=== PATIENT | female | born 1945 | race Caucasian/White ===

== ENCOUNTER 2019-06-17 18:28 | Emergency (ER) | payer MEDICARE, SELFPAY ==
[2019-06-17] VITALS (33 sets, daily range): BP systolic 99–140; BP diastolic 68–100; PULSE 54–118; RESP 17–18; TEMP 36.4; O2SAT 94–100; BMI 23.9
--- NOTE | 2019-06-17 18:36 | XRR_ITS ---
PROCEDURE INFORMATION: Exam: XR Chest, 1 View Exam date and time: 06/17/2019 6:37 PM Age: 74 years old Clinical indication: Shortness of breath; Chest pain; Additional info: Cp TECHNIQUE: Imaging protocol: XR of the chest Views: 1 view. COMPARISON: CR Chest 1 [place] [id number] 12/25/2018 1:14 AM FINDINGS: Lungs: There is unchanged interstitial prominence compatible with fibrosis, bronchitis, viral pneumonitis or mild interstitial edema. No lobar consolidation. Punctate calcified granulomas are noted. Pleural space: Unremarkable. No pleural effusion. No pneumothorax. Heart/Mediastinum: The heart is enlarged. Bones/joints: No acute abnormality. XR/XR chest 1V portable [id number] IMPRESSION: There is unchanged interstitial prominence compatible with fibrosis, bronchitis, viral pneumonitis or mild interstitial edema.
--- NOTE | 2019-06-17 18:36 | ECG_ITS ---
Measurements Intervals [place] Rate: 125 P: NM: 0 QRS: -24 QRSD: 86 T: 54 QT: 315 QTc: 455 ATRIAL FIBRILLATION WITH RAPID VENTRICULAR RESPONSE LOW QRS VOLTAGE IN PRECORDIAL LEADS [QRS DEFLECTION < 1.0 mV IN CHEST LEADS] INFERIOR MYOCARDIAL INFARCTION , PROBABLY OLD [40+ ms Q WAVE AND/OR ST/T AB ABNORMALITY IN II/aVF] Compared to ECG 12/25/2018 01:42:19 Myocardial infarct finding now present Sinus bradycardia no longer present Left anterior fascicular block no longer present Electronically Signed On 06-18-2019 7:48:54 AEROGRAPHER by Sonam Williamson M.D. [id number]
--- NOTE | 2019-06-17 18:46 | ED_ITS ---
Entered by Yancy Peter, acting as scribe for Kavon Lucas MD HPI - Chest Pain General: Chief Complaint: Chest Pain Stated Complaint: tightness in chest Time Seen by Provider: 06/17/19 18:44 History of Present Illness: HPI narrative: 74 yo female presents to ED with complaints of chest pain, palpitations and shortness of breath. She said this began about 1 1/2 hours ago (1714). She said she travelled to [place] over this last weekend. She said she has no history of this. She is currently on antibiotics for a bladder infection. MD complaint: chest pain Pertinent past history: other (none) Onset (ago): hour(s) (04/21 (1714)) Timing of current episode: constant Prior episodes: No Onset: during rest Pain location: substernal Pain radiation: none Severity: moderate Quality: aching Relieving factors: nothing Exacerbating factors: nothing Context: recent travel Associated symptoms: Reports dyspnea and palpitations; Deny abdominal pain, fever(s), nausea or vomiting Risk Factors: Coronary artery disease risk factors: none Thoracic aortic dissection risk factors: none Review of Systems Const: Denies: fever, chills, body aches or change in appetite Eyes: Denies: blurry vision or eye discomfort ENMT: Denies: throat pain or dental pain Card: Reports: palpitations and irregular heart rhythm Resp: Reports: shortness of breath GI: Denies: abdominal pain, nausea, vomiting or diarrhea : Denies: painful urination Musc: Denies: neck pain or back pain Skin/Breast: Denies: rash Neuro: Denies: headache Psych: Denies: depression Dwight/Lymph: Denies: easy bruising All/Imm: Denies: hives PFS ED PFSH: Social History Smoking and tobacco status: current every day smoker Physical Exam Const: COMMON NORMALS: no apparent distress, oriented x3 and healthy appearing HENMT: COMMON NORMALS: normocephalic and head/scalp atraumatic HEAD & SCALP: normocephalic and atraumatic Eye: COMMON NORMALS: PERRL and EOMs intact bilaterally PUPIL: Yes PERRL Neck/C-Spine: COMMON NORMALS: full ROM and supple Chest: COMMONS NORMALS: inspection of chest normal and palpation of chest normal Resp: COMMON NORMALS: normal respiratory effort, no retractions, no use of accessory muscles and clear to auscultation bilaterally AUSCULTATION: clear to auscultation bilaterally Cardio: COMMON NORMALS: no murmurs RATE: tachycardic RHYTHM: abnormal rhythm irregularly irregular GI: COMMON NORMALS: normal to inspection, nondistended, normoactive bowel sounds, soft to palpation, non-tender and no masses PALPATION: Yes soft Extremity: COMMON NORMALS: normal to inspection and full ROM Neuro: COMMON NORMALS: oriented x3, moves all extremities and no focal motor deficits Psych: COMMON NORMALS: mental status grossly normal, thought process normal and cooperative THOUGHT PROCESS: normal thought process Skin: COMMON NORMALS: no rashes or lesions noted and no wounds GENERAL SKIN EXAM: no rashes or lesions noted Course Vital Signs: Vital signs: Vital Signs Temperature 97.5 F L 06/17/19 18:37 Pulse Rate 69 06/17/19 18:53 Respiratory Rate 17 06/17/19 18:53 Blood Pressure 118/86 06/17/19 18:53 Pulse Oximetry 96 06/17/19 18:53 MDM - Chest Pain MDM Narrative: Medical decision making narrative: Patient presents here with chest pain that is atypical in nature. Her initial and repeat troponin are negative. Patient's CT scan here shows no PE. Patient does have proximal A. fib and is converted to normal sinus rhythm here without any medication. Suddenly patient has had this in the past. Patient has been in normal sinus rhythm over the last 3 hours. Patient is stable for discharge and is to follow- up with primary care doctor in 3 to 5 days and return if worsening. Lab Data: Labs: Lab Results 06/17/19 06/17/19 06/17/19 Range/Units 18:38 18:38 18:38 WBC 4.9 (4.0-10.0) 10^3/ uL RBC 4.14 (4.1-5.3) 10^6/u L Hgb 12.6 (11.5-15.3) g/dL Hct 39.5 (37.0-47.0) % MCV 95.4 (81-99) fL MCH 30.4 (28.0-34.0) pg MCHC 31.9 (30.0-36.0) g/dL RDW 14.3 (12.1-15.1) % Plt Count 176 (130-400) 10^3/c mm MPV 12.7 H (7.4-10.4) fL Neut % (Auto) 62.5 % Lymph % (Auto) 23.7 % Corson % (Auto) 8.1 % Eos % (Auto) 4.7 % Baso % (Auto) 0.8 % Neut # (Auto) 3.1 (1.8-7.7) 10^3/u L Lymph # (Auto) 1.2 (0.8-4.8) 10^3/u L Corson # (Auto) 0.4 (0.2-0.9) 10^3/u L Eos # (Auto) 0.2 (0.0-0.8) 10^3/u L Baso # (Auto) 0.0 (0.0-0.1) 10^3/u L Nucleated RBC % (a uto) 0 % Nucleated RBCs # 0.0 /100WBC D-Dimer (0-0.59) ug/mIFE U Sodium 138 (136-145) mmol/L Potassium 3.4 L (3.5-5.1) mmol/L Chloride 100 (98-107) mmol/L Carbon Dioxide 26 (22-29) mmol/L Anion Gap 15.4 (5-19) BUN 16 (8-23) mg/dL Creatinine 0.9 (0.5-0.9) mg/dL Glucose 167 H (65-115) mg/dL Calcium 9.8 (8.5-10.5) mg/dL Total Bilirubin 0.2 (0.15-1.2) mg/dL AST 19 (0-32) U/L ALT 14 (0-33) U/L Alkaline Phosphata se 96 (35-105) IU/L Troponin T Baselin e 7 (0-10) ng/mL Troponin T 120 Min alejandra (0-10) ng/mL Delta Troponin T (0-10) ABS# Total Protein 6.7 (6.6-8.7) g/dL Albumin 4.0 (3.5-5.2) g/dL Globulin 2.7 (1.3-4.6) g/dL 06/17/19 06/17/19 Range/Units 18:38 20:27 WBC (4.0-10.0) 10^3/ uL RBC (4.1-5.3) 10^6/u L Hgb (11.5-15.3) g/dL Hct (37.0-47.0) % MCV (81-99) fL MCH (28.0-34.0) pg MCHC (30.0-36.0) g/dL RDW (12.1-15.1) % Plt Count (130-400) 10^3/c mm MPV (7.4-10.4) fL Neut % (Auto) % Lymph % (Auto) % Cors[place] % (Auto) % Eos % (Auto) % Baso % (Auto) % Neut # (Auto) (1.8-7.7) 10^3/u L Lymph # (Auto) (0.8-4.8) 10^3/u L Corson # (Auto) (0.2-0.9) 10^3/u L Eos # (Auto) (0.0-0.8) 10^3/u L Baso # (Auto) (0.0-0.1) 10^3/u L Nucleated RBC % (a uto) % Nucleated RBCs # /100WBC D-Dimer 2.16 H (0-0.59) ug/mIFE U Sodium (136-145) mmol/L Potassium (3.5-5.1) mmol/L Chloride (98-107) mmol/L Carbon Dioxide (22-29) mmol/L Anion Gap (5-19) BUN (8-23) mg/dL Creatinine (0.5-0.9) mg/dL Glucose (65-115) mg/dL Calcium (8.5-10.5) mg/dL Total Bilirubin (0.15-1.2) mg/dL AST (0-32) U/L ALT (0-33) U/L Alkaline Phosphata se (35-105) IU/L Troponin T Baselin e (0-10) ng/mL Troponin T 120 Min alejandra 9.74 (0-10) ng/mL Delta Troponin T 2.74 (0-10) ABS# Total Protein (6.6-8.7) g/dL Albumin (3.5-5.2) g/dL Globulin (1.3-4.6) g/dL Imaging Data^: CXR: Radiologist's impression: Ordering Provider/Ordering MD: Kavon Lucas MD Date of Service: 06/17/19 Procedure(s): XR chest 1V portable [id number] Accession Number(s): [id number] Report Number: [id number] PROCEDURE INFORMATION: Exam: XR Chest, 1 View Exam date and time: 06/17/2019 6:37 PM Age: 74 years old Clinical indication: Shortness of breath; Chest pain; Additional info: Cp TECHNIQUE: Imaging protocol: XR of the chest Views: 1 view. COMPARISON: CR Chest 1 [place] [id number] 12/25/2018 1:14 AM FINDINGS: Lungs: There is unchanged interstitial prominence compatible with fibrosis, bronchitis, viral pneumonitis or mild interstitial edema. No lobar consolidation. Punctate calcified granulomas are noted. Pleural space: Unremarkable. No pleural effusion. No pneumothorax. Heart/Mediastinum: The heart is enlarged. Bones/joints: No acute abnormality. XR/XR chest 1V portable [id number] IMPRESSION: There is unchanged interstitial prominence compatible with fibrosis, bronchitis, viral pneumonitis or mild interstitial edema. CTA Chest: Radiologist's impression: [place] [address] CT Scan Report Signed Patient: Destiny Quintana #: [id number] : 7Acct#:[id number] Age/Sex: 74 / FADM Date: 06/17/19 [facility] Attending Dr: Ordering Provider/Ordering MD: Kavon Lucas MD Date of Service: 06/17/19 Procedure(s): CT angio chest PE protcl [id number] Accession Number(s): [id number] Report Number: [id number] PROCEDURE INFORMATION: Exam: CT Angiography Chest With Contrast Exam date and time: 06/17/2019 8:54 PM Age: 74 years old Clinical indication: Chest pain and chest pressure; Type not specified; Additional info: Pe TECHNIQUE: Imaging protocol: Computed tomographic angiography of the chest with intravenous contrast. 3D rendering: MIP and/or 3D reconstructed images were created by the technologist. Total DLP: 537.61 mGy-cm Radiation optimization: All CT scans at this facility use at least one of these dose optimization techniques: automated exposure control; mA and/or kV adjustment per patient size (includes targeted exams where dose is matched to clinical indication); or iterative reconstruction. Contrast material: OMNI 350; Contrast volume: 95 ml; Contrast route: 20G; COMPARISON: CR (CHEST, ) 06/17/2019 6:41 PM FINDINGS: Pulmonary arteries: There is no pulmonary embolus. Aorta: There is 4.1 cm ascending thoracic aorta. Mid descending thoracic aorta measures 2.7 cm and the transverse aortic arch measures 2.6 cm. There is no dissection. Lungs: Bilateral apical fibrosis versus pneumonitis is noted. There is a 8 x 9 mm nodule right upper lobe image 92. Additional pneumonitis in the right upper lobe and smaller subpleural nodules are noted. In the left upper lobe, there is a 6 mm subpleural nodule with central lucency may reflect some pneumonitis surrounding a dilated bronchus or early cavitated nodule image 12. There are moderate to severe emphysematous changes. Nonspecific bibasilar consolidation is present, consistent with atelectasis, edema, or pneumonia. There is moderate bronchiectasis especially in the lower lobes. There is some mild distal mucus plugging. Pleural space: Unremarkable. No pneumothorax. No pleural effusion. Heart: There is a small pericardial effusion. The heart is enlarged. Mediastinum: A small hiatal hernia is present. Kidneys and ureters: There is no evidence of hydronephrosis. There is no evidence of renal calcifications. Lymph nodes: Unremarkable. No enlarged lymph nodes. Bones/joints: Chronic appearing compression fracture deformity of T12 is noted. Soft tissues: Unremarkable. CT/CT angio chest PE protcl [id number] IMPRESSION: 1. There is no pulmonary embolus. 2. 4.1 cm aneurysm of the ascending thoracic aorta. No dissection. 3. 9 mm nodule right upper lobe. Additional upper lobe pneumonitis in apical fibrosis is noted. The 6 mm nodule left upper lobe may reflect pneumonitis or additional small nodule with central cavitation.For patients at low risk (minimal or absent history of smoking and of other known risk factors), recommend CT at 3-6 months, then consider CT at 18-24 months. For patients at high risk (history of smoking or of other known risk factors), recommend CT at 3-6 months, then CT at 18-24 months. (zbigniew Hodges al., Fleischner Society, 2017) 4. Nonspecific bibasilar consolidation is present, consistent with atelectasis, edema, or pneumonia. Radiation Dose CTDIVOL = (mGy): DLP = 537.61 (mGy-cm) Dictated By:Uzma Godoy Signed By:Isaac Godoyigned Date/Time:06/17/192151 DD/ EKG Data^: EKG 1: Attestation: I personally reviewed and interpreted this EKG as follows: EKG interpretation date: 06/17/19 EKG interpretation time: 18:43 Interpretation: afib hr [address] or t wave abnormalities qrs 86 qtc 389 EKG 2: Attestation: I personally reviewed and interpreted this EKG as follows: EKG interpretation date: 06/17/19 EKG interpretation time: 20:22 Interpretation: nsr hr 63 with no dt or twave abnormalities qrs 94 qtc 408 Discharge Plan Discharge Patient Disposition: Home, Self-Care Clinical Impression: Atypical chest pain, Paroxysmal A-fib Condition: Stable Prescriptions: No Action amoxicillin 500 mg capsule 500 mg PO BID RF: 0 Aleve 220 mg Tablet 220 mg PO BID PRN (Reason: Pain) RF: 0 magnesium 200 mg Tablet 200 mg PO DAILY RF: 0 Vitamin D3 400 unit Capsule 400 unit PO DAILY RF: 0 Discharge Orders: Discharge Order (Routine); Ordered 06/17/19 Ordered By: Kavon Lucas Referrals: Maribel Mendes MD [Primary Care Provider] - Rahat Overton MD [Physician] - 4-7 days Discharge Diet: Advance as tolerated Discharge Activity: Resume usual activity Patient Instructions: Atrial Fibrillation (ED), Chest Pain (ED) Coding Level of Care Code ED Global Mobility Specialist for Chg Fwd Exam Comprehensive The documentation recorded by the [place] josé Valerie R, accurately reflects the service I personally performed and the decisions made by Lance baca Korby, MD Jun 17, 2019 18:28
[2019-06-17 19:00] LABS: Basophils % 0.8 %; Eosinophils # 0.2 10^3/uL (0.0-0.8); Eosinophils % 4.7 %; Hematocrit 39.5 % (37.0-47.0); Hemoglobin 12.6 g/dL (11.5-15.3); Lymphocytes # 1.2 10^3/uL (0.8-4.8); Lymphocytes % 23.7 %; Mean Corpuscular HGB Conc 31.9 g/dL (30.0-36.0); Mean Corpuscular Hemoglobin 30.4 pg (28.0-34.0); Mean Corpuscular Volume 95.4 fL (81-99); Mean Platelet Volume 12.7 fL (7.4-10.4); Monocytes # 0.4 10^3/uL (0.2-0.9); Monocytes % 8.1 %; Neutrophils # 3.1 10^3/uL (1.8-7.7); Neutrophils % 62.5 %; Nucleated Red Blood Cells % 0 %; Platelet Count 176 10^3/cmm (130-400); Red Blood Count 4.14 10^6/uL (4.1-5.3); Red Cell Distribution Width 14.3 % (12.1-15.1); White Blood Count 4.9 10^3/uL (4.0-10.0)
--- NOTE | 2019-06-17 19:45 | PC.NURSE ---
Introduced self to patient and initiated vital signs. Patient presents A&O x 4. NAD, ABCs intact, MAEW and agreeable to treatment. Respirations are even and unlabored. Pt states medications taken before coming to ER are n/a. Pt states that the chief complaint for the ER visit today is due to chest pain which presented as tightness in the center of the chest around 1700 today. Pt denies any vision disturbances or lightheadedness. Bed left in lowest position in semi-fowlers with side rails up.Reassured patient of needs and will continue to monitor.
[2019-06-17 19:47] LABS: Alanine Aminotransferase 14 U/L (0-33); Alkaline Phosphatase 96 IU/L (35-105); Anion Gap 15.4 (5-19); Aspartate Amino Transferase 19 U/L (0-32); Blood Urea Nitrogen 16 mg/dL (8-23); Calcium 9.8 mg/dL (8.5-10.5); Carbon Dioxide 26 mmol/L (22-29); Chloride 100 mmol/L (98-107); Globulin 2.7 g/dL (1.3-4.6); Glucose 167 mg/dL (65-115); Potassium 3.4 mmol/L (3.5-5.1); Sodium 138 mmol/L (136-145); Total Bilirubin 0.2 mg/dL (0.15-1.2); Total Protein 6.7 g/dL (6.6-8.7)
[2019-06-17 19:49] LABS: D Dimer 2.16 ug/mIFEU (0-0.59)
[2019-06-17 19:50] LABS: Troponin(5th) Baseline 7 ng/mL (0-10)
--- NOTE | 2019-06-17 19:53 | PC.PHAR ---
PT STATES THAT SHE USED CBD OIL FOR PAIN PRN.
--- NOTE | 2019-06-17 20:19 | CTR_ITS ---
PROCEDURE INFORMATION: Exam: CT Angiography Chest With Contrast Exam date and time: 06/17/2019 8:54 PM Age: 74 years old Clinical indication: Chest pain and chest pressure; Type not specified; Additional info: Pe TECHNIQUE: Imaging protocol: Computed tomographic angiography of the chest with intravenous contrast. 3D rendering: MIP and/or 3D reconstructed images were created by the technologist. Total DLP: 537.61 mGy-cm Radiation optimization: All CT scans at this facility use at least one of these dose optimization techniques: automated exposure control; mA and/or kV adjustment per patient size (includes targeted exams where dose is matched to clinical indication); or iterative reconstruction. Contrast material: OMNI 350; Contrast volume: 95 ml; Contrast route: 20G; COMPARISON: CR (CHEST, ) 06/17/2019 6:41 PM FINDINGS: Pulmonary arteries: There is no pulmonary embolus. Aorta: There is 4.1 cm ascending thoracic aorta. Mid descending thoracic aorta measures 2.7 cm and the transverse aortic arch measures 2.6 cm. There is no dissection. Lungs: Bilateral apical fibrosis versus pneumonitis is noted. There is a 8 x 9 mm nodule right upper lobe image 92. Additional pneumonitis in the right upper lobe and smaller subpleural nodules are noted. In the left upper lobe, there is a 6 mm subpleural nodule with central lucency may reflect some pneumonitis surrounding a dilated bronchus or early cavitated nodule image 12. There are moderate to severe emphysematous changes. Nonspecific bibasilar consolidation is present, consistent with atelectasis, edema, or pneumonia. There is moderate bronchiectasis especially in the lower lobes. There is some mild distal mucus plugging. Pleural space: Unremarkable. No pneumothorax. No pleural effusion. Heart: There is a small pericardial effusion. The heart is enlarged. Mediastinum: A small hiatal hernia is present. Kidneys and ureters: There is no evidence of hydronephrosis. There is no evidence of renal calcifications. Lymph nodes: Unremarkable. No enlarged lymph nodes. Bones/joints: Chronic appearing compression fracture deformity of T12 is noted. Soft tissues: Unremarkable. CT/CT angio chest PE protcl [id number] IMPRESSION: 1. There is no pulmonary embolus. 2. 4.1 cm aneurysm of the ascending thoracic aorta. No dissection. 3. 9 mm nodule right upper lobe. Additional upper lobe pneumonitis in apical fibrosis is noted. The 6 mm nodule left upper lobe may reflect pneumonitis or additional small nodule with central cavitation.For patients at low risk (minimal or absent history of smoking and of other known risk factors), recommend CT at 3-6 months, then consider CT at 18-24 months. For patients at high risk (history of smoking or of other known risk factors), recommend CT at 3-6 months, then CT at 18-24 months. (Carroll et al., Fleischner Society, 2017) 4. Nonspecific bibasilar consolidation is present, consistent with atelectasis, edema, or pneumonia. Radiation Dose CTDIVOL = (mGy): DLP = 537.61 (mGy-cm)
--- NOTE | 2019-06-17 20:23 | PC.NURSE ---
EKG done at 2019 and shown to ER doctor. Patient also stated that her pain is more like a pressure than pain and in the left side of her chest.
[2019-06-17] MEDS: aspirin 81 mg Chew Tablet 324 MG PO (20:35)
--- NOTE | 2019-06-17 20:36 | ECG_ITS ---
Measurements Intervals [place] Rate: 63 P: 80 VT: 164 QRS: -28 QRSD: 94 T: 36 QT: 401 QTc: 411 SINUS RHYTHM WITH OCCASIONAL SUPRAVENTRICULAR PREMATURE COMPLEXES BORDERLINE LEFT AXIS DEVIATION [QRS AXIS < -20] LOW QRS VOLTAGE IN PRECORDIAL LEADS [QRS DEFLECTION < 1.0 mV IN CHEST LEADS] Compared to ECG 12/25/2018 01:42:19 Sinus bradycardia no longer present Left anterior fascicular block no longer present Electronically Signed On 06-18-2019 20:30:58 SUBSTATION TECHNICIAN by Eulalia Turner M.D. [id number]
[2019-06-17 21:01] LABS: Troponin 5 2HR 9.74 ng/mL (0-10); Troponin 5 2HR Delta 2.74 ABS# (0-10)
[2019-06-17] MEDS: morphine 4 mg/mL SDV 1 mL IVP (21:05)
[2019-06-17] MEDS: iohexol 350 mg/mL 100 mL Btl IV (21:31)
--- NOTE | 2019-06-20 12:01 | DCPLANNER ---
squash centre manager had message to schedule a follow up appointment for patient with [facility]. squash centre manager called [facility], spoke with Deanna, patient has a follow up appointment scheduled for Friday, August 02, 2019 at 1:[address] Overton. Clinic will call patient with appointment information.
--- NOTE | 2019-09-06 15:50 | DCPLANNER ---
Patient did attend appointment scheduled for 08.02.19 with [facility].
== END 2019-06-17 22:32 | disposition home or self-care (01) ==
PROVIDERS: Emergency Provider Emergency Medicine; Family Provider Family Medicine; PCP Family Medicine
DX: R07.89 Other chest pain (principal); I48.0 Paroxysmal atrial fibrillation; F17.200 Nicotine dependence, unspecified, uncomplicated
CPT/HCPCS: 36415; 71045; 71275; 80053; 84484; 85025; 85378; 93005; 96374; 96375; 99283; 99284; J2270; Q9967

== ENCOUNTER → 2019-06-29 10:30 | Outpatient (BNVA) | payer MEDICARE, SELFPAY | PROVIDERS: Family Provider Family Medicine; PCP Family Medicine; Visit Provider Nurse Practitioner Family | DX: N30.20 Other chronic cystitis without hematuria (principal) | CPT/HCPCS: 81001 ==

== ENCOUNTER 2019-09-23 00:43 | Emergency (ER) | payer MEDICARE, SELFPAY ==
[2019-09-23] VITALS (18 sets, daily range): BP systolic 144–159; BP diastolic 78–123; PULSE 56–72; RESP 15–23; TEMP 35.6; O2SAT 95–99; BMI 25.7
--- NOTE | 2019-09-23 00:49 | ECG_ITS ---
Measurements Intervals [place] Rate: 61 P: 32 SD: 152 QRS: -33 QRSD: 80 T: 29 QT: 378 QTc: 381 SINUS RHYTHM LEFT AXIS DEVIATION [QRS AXIS < -30] LOW QRS VOLTAGE IN PRECORDIAL LEADS [QRS DEFLECTION < 1.0 mV IN CHEST LEADS] Compared to ECG 06/17/2019 20:22:33 No significant changes Electronically Signed On 09-23-2019 18:01:08 CDT by Sonam Williamson M.D. [id number]
--- NOTE | 2019-09-23 00:49 | XR_ITS ---
WS: [id number] XR chest 1V portable [id number] REASON FOR EXAM: cp FINDINGS: Mild thickening of the pleura in the right upper lung. Comparisons were made to previous exam of June 17, 2019. The heart is not enlarged. The lung hess are mildly hyper aerated suggesting low-grade emphysema. There is no pneumonia, pleur al effusion, pulmonary edema, are pneumothorax. The hilum and apices normal. XR/XR chest 1V portable [id number] IMPRESSION: Mild emphysema this changes Thickening of the pleura in the right apex but no definite masses seen.
--- NOTE | 2019-09-23 01:16 | ED_ITS ---
HPI - Chest Pain General: Chief Complaint: Chest Pain Stated Complaint: chest pressure Time Seen by Provider: 09/23/19 01:05 Source: patient Mode of arrival: ambulatory Limitations: no limitations History of Present Illness: HPI narrative: Destiny is a 74-year-old female with a history of A. fib states that 9:00 she turned over in bed and started having palpitations along with chest pain. States the pain was a pressure type pain in the center of her chest. She denies any numbing or shortness of breath. She states that she checked her heart rate with a pulse ox and it was in the 140s and very irregular. States that her symptoms have since resolved and now has very minimal pain. She denies any worsening or improving factors. complaint: chest pain Onset (ago): hour(s) Onset: during rest Pain location: substernal Pain radiation: none Severity: mild Quality: tightness Relieving factors: nothing Exacerbating factors: nothing Associated symptoms: Deny abdominal pain, dyspnea, fever(s), nausea or vomiting Review of Systems Const: Denies: fever(s), chills, body aches or change in appetite Eyes: Denies: blurry vision or eye discomfort ENMT: Denies: throat pain or dental pain Card: Reports: chest pain Resp: Denies: dyspnea GI: Denies: abdominal pain, nausea, vomiting or diarrhea : Denies: dysuria Musc: Denies: neck pain or back pain Skin/Breast: Denies: rash Neuro: Denies: headache(s) Psych: Denies: depression Dwight/Lymph: Denies: easy bruising All/Imm: Denies: urticaria PFSH ED PFSH: Medical History Chronic cystitis History of bladder cancer History of hematuria Family History Mother , in her 70's Cancer Father , at age 79 CAD (coronary artery disease) Social History Smoking and tobacco status: former smoker Alcohol intake: unknown Adopted: No Caregiver/support person: No Lives independently: Yes Marital status: Single History of recent travel: No Current gender identity: Female Physical Exam Const: COMMON NORMALS: no acute distress, patient oriented x3 and healthy appearing HENMT: COMMON NORMALS: normocephalic and atraumatic HEAD & SCALP: normocephalic and atraumatic Eye: COMMON NORMALS: Equal, round and reactive pupils present and EOMs intact bilaterally PUPIL: Yes Equal, round and reactive pupils present Neck/C-Spine: COMMON NORMALS: full ROM and supple Chest: COMMONS NORMALS: normal inspection of the chest and normal palpation of entire chest wall Resp: COMMON NORMALS: normal respiratory effort, No retractions, No use of accessory muscles and clear to auscultation bilaterally AUSCULTATION: clear to auscultation bilaterally Cardio: COMMON NORMALS: regular rate, regular rhythm and No murmurs present (Cardio) RATE: regular rate RHYTHM: regular rhythm GI: COMMON NORMALS: Normal to inspection, nondistended, normoactive bowel sounds present, Soft to palpation, non-tender and no masses PALPATION: Yes Soft to palpation Extremity: COMMON NORMALS: normal to inspection and full ROM Neuro: COMMON NORMALS: patient oriented x3, moves all extremities and no focal motor deficits Psych: COMMON NORMALS: mental status grossly normal, Normal thought process present and cooperative THOUGHT PROCESS: Normal thought process present Skin: COMMON NORMALS: no rashes or lesions noted and no wounds GENERAL SKIN EXAM: no rashes or lesions noted Course Vital Signs: Vital signs: Vital Signs Temperature 96.0 F L 09/23/19 01:13 Pulse Rate 72 09/23/19 01:13 Respiratory Rate 18 09/23/19 01:13 Blood Pressure 144/94 09/23/19 01:13 Pulse Oximetry 98 09/23/19 01:13 MDM - Chest Pain MDM Narrative: Medical decision making narrative: Patient presents here with chest pain is likely due to A. fib. Patient has since converted by the time she was here. Patient had no pain here and initial repeat troponins are normal. I did offer admission but she states she feels improved and would like to go home. I feel she is stable for discharge and informed her she is to follow-up with primary care doctor in 2 to 4 days return to ER if she has any pain. She understands and agrees this plan. Lab Data: Labs: Lab Results 09/23/19 09/23/19 09/23/19 Range/Units 01:11 01:11 01:11 WBC 5.5 (4.0-10.0) 10^3/ uL RBC 4.09 L (4.1-5.3) 10^6/u L Hgb 12.1 (11.5-15.3) g/dL Hct 38.5 (37.0-47.0) % MCV 94.1 (81-99) fL MCH 29.6 (28.0-34.0) pg MCHC 31.4 (30.0-36.0) g/dL RDW 14.2 (12.1-15.1) % Plt Count 170 (130-400) 10^3/c mm MPV 12.8 H (7.4-10.4) fL Neut % (Auto) 67.8 % Lymph % (Auto) 18.2 % [place] % (Auto) 8.3 % Eos % (Auto) 5.1 % Baso % (Auto) 0.4 % Neut # (Auto) 3.8 (1.8-7.7) 10^3/u L Lymph # (Auto) 1.0 (0.8-4.8) 10^3/u L [place] # (Auto) 0.5 (0.2-0.9) 10^3/u L Eos # (Auto) 0.3 (0.0-0.8) 10^3/u L Baso # (Auto) 0.0 (0.0-0.1) 10^3/u L Nucleated RBC % (a uto) 0 % Nucleated RBCs # 0.0 /100WBC Sodium 143 (136-145) mmol/L Potassium 4.1 (3.5-5.1) mmol/L Chloride 106 (98-107) mmol/L Carbon Dioxide 26 (22-29) mmol/L Anion Gap 15.1 (5-19) BUN 15 (8-23) mg/dL Creatinine 0.8 (0.5-0.9) mg/dL Glucose 109 (65-115) mg/dL Calculated Osmolal ity 293 (285-295) mOsm/k g Calcium 9.7 (8.5-10.5) mg/dL Total Bilirubin 0.3 (0.15-1.2) mg/dL AST 28 (0-32) U/L ALT 27 (0-33) U/L Alkaline Phosphata se 81 (35-105) IU/L Troponin T Baselin e 8 (0-10) ng/mL Troponin T 120 [address] [place] (0-10) ng/mL Delta Troponin T (0-10) ABS# Total Protein 6.5 L (6.6-8.7) g/dL Albumin 4.3 (3.5-5.2) g/dL Globulin 2.2 (1.3-4.6) g/dL 09/23/19 Range/Units 02:37 WBC (4.0-10.0) 10^3/ uL RBC (4.1-5.3) 10^6/u L Hgb (11.5-15.3) g/dL Hct (37.0-47.0) % MCV (81-99) fL MCH (28.0-34.0) pg MCHC (30.0-36.0) g/dL RDW (12.1-15.1) % Plt Count (130-400) 10^3/c mm MPV (7.4-10.4) fL Neut % (Auto) % Lymph % (Auto) % [place] % (Auto) % Eos % (Auto) % Baso % (Auto) % Neut # (Auto) (1.8-7.7) 10^3/u L Lymph # (Auto) (0.8-4.8) 10^3/u L [place] # (Auto) (0.2-0.9) 10^3/u L Eos # (Auto) (0.0-0.8) 10^3/u L Baso # (Auto) (0.0-0.1) 10^3/u L Nucleated RBC % (a uto) % Nucleated RBCs # /100WBC Sodium (136-145) mmol/L Potassium (3.5-5.1) mmol/L Chloride (98-107) mmol/L Carbon Dioxide (22-29) mmol/L Anion Gap (5-19) BUN (8-23) mg/dL Creatinine (0.5-0.9) mg/dL Glucose (65-115) mg/dL Calculated Osmolal ity (285-295) mOsm/k g Calcium (8.5-10.5) mg/dL Total Bilirubin (0.15-1.2) mg/dL AST (0-32) U/L ALT (0-33) U/L Alkaline Phosphata se (35-105) IU/L Troponin T Baselin e (0-10) ng/mL Troponin T 120 [address] [place] 13.05 H (0-10) ng/mL Delta Troponin T 5.05 (0-10) ABS# Total Protein (6.6-8.7) g/dL Albumin (3.5-5.2) g/dL Globulin (1.3-4.6) g/dL Imaging Data^: CXR: Attestation: I personally reviewed and interpreted this imaging study as follows: My impression: No acute abnormality EKG Data^: EKG 1: Attestation: I personally reviewed and interpreted this EKG as follows: EKG interpretation date: 09/23/19 EKG interpretation time: 02:18 Interpretation: nsr hr [address] or t wave abnormalities qrs 80 qtc 380 Discharge Plan Discharge Patient Disposition: Home, Self-Care Clinical Impression: Chest pain Qualifiers: Chest pain type: unspecified Qualified Code(s): R07.9 - Chest pain, unspecified Condition: Stable Prescriptions: No Action neuriva PO DAILY RF: 0 cnqflflt-duectqk-nnre-lutein Tablet PO DAILY RF: 0 nicotine [Nicoderm CQ] 7 mg/24 hr patch 24 hour 1 patch TRANSDERMA Q24H RF: 0 aspirin 325 mg tablet 325 mg PO DAILY 90 Days Qty: 90 RF: 3 metoprolol tartrate 25 mg tablet 12.5 mg PO BID PRN (Reason: tachycardia) 90 Days Qty: 180 RF: 3 amoxicillin 500 mg capsule 500 mg PO BID Qty: 60 RF: 3 Aleve 220 mg Tablet 220 mg PO BID PRN (Reason: Pain) RF: 0 Vitamin D3 400 unit Capsule 400 unit PO DAILY RF: 0 magnesium 200 mg tablet 400 mg PO DAILY RF: 0 Discharge Orders: Discharge Order (Routine); Ordered 09/23/19 Ordered By: Kavon Lucas Referrals: Maribel Mendes MD [Primary Care Provider] - 1-3 days Discharge Diet: Advance as tolerated Discharge Activity: Resume usual activity Patient Instructions: Chest Pain (ED) Coding Level of Care Code ED Dredge Hand for Chg Fwd Exam Comprehensive
[2019-09-23 01:40] LABS: Basophils % 0.4 %; Eosinophils # 0.3 10^3/uL (0.0-0.8); Eosinophils % 5.1 %; Hematocrit 38.5 % (37.0-47.0); Hemoglobin 12.1 g/dL (11.5-15.3); Lymphocytes % 18.2 %; Mean Corpuscular HGB Conc 31.4 g/dL (30.0-36.0); Mean Corpuscular Hemoglobin 29.6 pg (28.0-34.0); Mean Corpuscular Volume 94.1 fL (81-99); Mean Platelet Volume 12.8 fL (7.4-10.4); Monocytes # 0.5 10^3/uL (0.2-0.9); Monocytes % 8.3 %; Neutrophils # 3.8 10^3/uL (1.8-7.7); Neutrophils % 67.8 %; Nucleated Red Blood Cells % 0 %; Platelet Count 170 10^3/cmm (130-400); Red Blood Count 4.09 10^6/uL (4.1-5.3); Red Cell Distribution Width 14.2 % (12.1-15.1); White Blood Count 5.5 10^3/uL (4.0-10.0)
[2019-09-23 01:41] LABS: Troponin(5th) Baseline 8 ng/mL (0-10)
[2019-09-23 01:53] LABS: Alanine Aminotransferase 27 U/L (0-33); Albumin Level 4.3 g/dL (3.5-5.2); Alkaline Phosphatase 81 IU/L (35-105); Anion Gap 15.1 (5-19); Aspartate Amino Transferase 28 U/L (0-32); Blood Urea Nitrogen 15 mg/dL (8-23); Calcium 9.7 mg/dL (8.5-10.5); Carbon Dioxide 26 mmol/L (22-29); Chloride 106 mmol/L (98-107); Creatinine Clr Calc Pharmacy 57.0967; Globulin 2.2 g/dL (1.3-4.6); Glucose 109 mg/dL (65-115); Osmolality Calculated 293 mOsm/kg (285-295); Potassium 4.1 mmol/L (3.5-5.1); Sodium 143 mmol/L (136-145); Total Bilirubin 0.3 mg/dL (0.15-1.2); Total Protein 6.5 g/dL (6.6-8.7)
[2019-09-23] MEDS: aspirin 81 mg Chew Tablet 324 MG PO (02:05)
[2019-09-23 03:05] LABS: Troponin 5 2HR 13.05 ng/mL (0-10); Troponin 5 2HR Delta 5.05 ABS# (0-10)
== END 2019-09-23 03:45 | disposition home or self-care (01) ==
PROVIDERS: Emergency Provider Emergency Medicine; Family Provider Family Medicine; PCP Family Medicine
DX: R07.9 Chest pain, unspecified (principal); Z79.82 Long term (current) use of aspirin; Z85.51 Personal history of malignant neoplasm of bladder; Z87.891 Personal history of nicotine dependence
CPT/HCPCS: 12345; 71045; 80053; 84484; 85025; 93005; 99283; 99284

== ENCOUNTER → 2020-01-11 15:23 | Outpatient (BNVA) | payer MEDICARE, SELFPAY | PROVIDERS: Family Provider Family Medicine; PCP Family Medicine; Visit Provider Urology | DX: N30.20 Other chronic cystitis without hematuria (principal) | CPT/HCPCS: 81001 ==

== ENCOUNTER → 2020-09-27 12:35 | Outpatient (BNVA) | payer MEDICARE, SELFPAY | PROVIDERS: PCP Family Medicine; Referring Provider Family Medicine; Visit Provider Anesthesiology Pain Medicine | DX: G89.29 Other chronic pain (principal); Z11.52 Encounter for screening for COVID-19; M47.816 Spondylosis without myelopathy or radiculopathy, lumbar region; Z20.822 Contact with and (suspected) exposure to COVID-19; M16.12 Unilateral primary osteoarthritis, left hip; Z01.812 Encounter for preprocedural laboratory examination; M79.605 Pain in left leg; Z79.891 Long term (current) use of opiate analgesic | CPT/HCPCS: 87635; 99204 ==

== ENCOUNTER 2020-09-28 08:38 | Outpatient (CLI) | payer MEDICARE, SELFPAY ==
--- NOTE | 2020-09-28 08:49 | XR_ITS ---
WS: [id number] Lumbar spine, 5 views including obliques, 09/28/2020 Clinical Data: M47.816 - Spondylosis without myelopathy or radiculopathy... Comparison: None. Findings: No subluxation is seen. There is slight loss of superior cortical height of the L1 vertebral body whi ch may represent a small compression. There is degenerative disc narrowing at L5-S1. There is an oste ophyte at the anterior superior aspect of L1. The transverse processes and SI joints are normal. The oblique films show no spondylolysis or spondylolisthesis. There is calcification along the abdomi nal aorta but no aneurysm. XR/XR lumbar spine min 4V [id number] Impression: 1. Slight loss of superior vertebral body height of L1 which may represent a mi nimal fracture. 2. Degenerative disc disease at L5-S1.
== END 2020-09-28 08:39 | disposition home or self-care (01) ==
LOC: RAD 08:47
PROVIDERS: PCP Family Medicine; Visit Provider Anesthesiology Pain Medicine
DX: M47.816 Spondylosis without myelopathy or radiculopathy, lumbar region (principal); M51.37 Other intervertebral disc degeneration, lumbosacral region
CPT/HCPCS: 72110

== ENCOUNTER 2020-10-03 08:21 | Outpatient (CLI) | payer MEDICARE, SELFPAY ==
--- NOTE | 2020-10-03 09:24 | PFTS_ITS ---
Date of Study:10/03/20 Date of Dictation: 10/09/20 MECHANICS: Pre bronchodilator Forced vital capacity (FVC) is normal. Pre bronchodilator Forced expiratory volume in one second (FEV1) is normal . FEV1/FVC is normal. There is no post bronchodialator study. FLOW VOLUME LOOP: normal. LUNG VOLUMES: Total lung capacity (TLC) is normal. Residual volume (RV) is normal. DIFFUSING CAPACITY FOR CARBON MONOXIDE: mildly reduced 74% . INTERPRETATION: The pulmonary function tests are normal with isolated mild reduction in gas transfer suggestive of pulmonary vascular disease. Clinical correlation recommended. MTDD
== END 2020-10-03 08:22 | disposition home or self-care (01) ==
LOC: RT 08:24
PROVIDERS: PCP Family Medicine; Visit Provider Family Medicine
DX: R06.02 Shortness of breath (principal)
CPT/HCPCS: 94010; 94726; 94729

== ENCOUNTER → 2020-10-15 11:03 | Outpatient (BNVA) | payer MEDICARE, SELFPAY | PROVIDERS: PCP Family Medicine; Visit Provider Urology | DX: N30.20 Other chronic cystitis without hematuria (principal); Z85.51 Personal history of malignant neoplasm of bladder | CPT/HCPCS: 81003 ==

== ENCOUNTER 2020-10-26 06:00 | Outpatient (RCR) | payer MEDICARE, SELFPAY | END 2020-11-17 23:59 | disposition home or self-care (01) | LOC: SPT 06:00 | PROVIDERS: PCP Family Medicine; Referring Provider Anesthesiology Pain Medicine; Visit Provider Anesthesiology Pain Medicine | DX: M25.559 Pain in unspecified hip (principal); G89.29 Other chronic pain; M47.816 Spondylosis without myelopathy or radiculopathy, lumbar region | CPT/HCPCS: 97161 ==

== ENCOUNTER → 2020-11-12 08:50 | Outpatient (BNVA) | payer MEDICARE, SELFPAY | PROVIDERS: PCP Family Medicine; Visit Provider Anesthesiology Pain Medicine | DX: G89.29 Other chronic pain (principal); M54.5 Low back pain; M25.552 Pain in left hip; M79.605 Pain in left leg; M16.10 Unilateral primary osteoarthritis, unspecified hip | CPT/HCPCS: 99214 ==

== ENCOUNTER → 2020-11-14 13:52 | Outpatient (BNVA) | payer MEDICARE, SELFPAY | PROVIDERS: PCP Family Medicine; Visit Provider Anesthesiology Pain Medicine | DX: G89.29 Other chronic pain (principal); M25.552 Pain in left hip | CPT/HCPCS: 20610; 77002; J1030; J3490 ==

== ENCOUNTER 2020-11-17 02:08 | Emergency (ER) | payer MEDICARE, SELFPAY ==
[2020-11-17] VITALS (8 sets, daily range): BP systolic 100–131; BP diastolic 63–84; PULSE 49–121; RESP 17–18; TEMP 36.6; O2SAT 96–98; BMI 26.0
--- NOTE | 2020-11-17 02:46 | ECG_ITS ---
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1945 Requested By: Madhav Venegas Order Number: [id number] Reading MD: DENICE CASTRO Measurements Intervals [place] Rate: 149 P: FL: QRS: -5 QRSD: 74 T: 62 QT: 289 QTc: 455 Interpretive Statements ATRIAL FIBRILLATION WITH RAPID VENTRICULAR RESPONSE LOW QRS VOLTAGE IN PRECORDIAL LEADS [QRS DEFLECTION < 1.0 mV IN CHEST LEADS] PATTERN CONSISTENT WITH PULMONARY DISEASE MODERATE ST DEPRESSION [0.05+ mV ST DEPRESSION] Compared to ECG 09/23/2019 02:18:34 ST (T wave) deviation now present Sinus rhythm no longer present Left-axis deviation no longer present Electronically Signed On 11-17-2020 20:28:39 CDT by DENICE CASTRO [email or web address]
--- NOTE | 2020-11-17 02:46 | XRR_ITS ---
PROCEDURE INFORMATION: Exam: XR Chest Exam date and time: 11/17/2020 2:46 AM Age: 75 years old Clinical indication: Shortness of breath; Chest pressure; Patient HX: Chest pain with SOB. History of afib and bladder cancer. ; Additional info: Cp TECHNIQUE: Imaging protocol: XR of the chest. Views: 1 view. Total images: 1 COMPARISON: CR XR chest 1V portable [id number] 09/23/2019 1:13 AM FINDINGS: Lungs: Nonspecific left lung base opacity favors atelectasis or pneumonia. Pleural spaces: There is biapical pleural thickening, likely related to chronic pleural-parenchymal scarring. Heart/Mediastinum: Heart size is stable when compared to the prior exam. Vasculature: Atherosclerosis is evident. Bones/joints: Osseous structures are unchanged from the prior exam. XR/XR chest 1V portable [id number] IMPRESSION: Nonspecific left lung base opacity favors atelectasis or pneumonia.
[2020-11-17 03:00] LABS: Basophils % 0.4 %; Eosinophils # 0.2 10^3/uL (0.0-0.8); Eosinophils % 2.4 %; Hematocrit 43.6 % (37.0-47.0); Hemoglobin 13.8 g/dL (11.5-15.3); Lymphocytes # 1.4 10^3/uL (0.8-4.8); Lymphocytes % 20.1 %; Mean Corpuscular HGB Conc 31.7 g/dL (30.0-36.0); Mean Corpuscular Hemoglobin 29.6 pg (28.0-34.0); Mean Corpuscular Volume 93.4 fL (81-99); Monocytes # 0.5 10^3/uL (0.2-0.9); Neutrophils # 4.86 10^3/uL (1.8-7.7); Neutrophils % 69.8 %; Nucleated Red Blood Cells % 0 %; Platelet Count 202 10^3/cmm (130-400); Red Blood Count 4.67 10^6/uL (4.1-5.3); Red Cell Distribution Width 14.6 % (12.1-15.1)
[2020-11-17] MEDS: metoprolol tartrate 1 mg/1 mL SDV 5 mL 5 MG IV (03:01)
[2020-11-17 03:14] LABS: Troponin(5th) Baseline 8 ng/L (0-10)
[2020-11-17 03:17] LABS: D Dimer 3.67 ug/mIFEU (0-0.59)
[2020-11-17 03:24] LABS: Alanine Aminotransferase 30 U/L (0-33); Albumin Level 4.3 g/dL (3.5-5.2); Alkaline Phosphatase 90 IU/L (35-105); Anion Gap 15.2 (5-19); Aspartate Amino Transferase 26 U/L (0-32); Blood Urea Nitrogen 28 mg/dL (8-23); Carbon Dioxide 26 mmol/L (22-29); Chloride 103 mmol/L (98-107); Creatine Phosphokinase 43 U/L (26-192); Globulin 2.4 g/dL (1.3-4.6); Glucose 101 mg/dL (65-115); NT Pro B Type Natriuretic Pept 361 pg/mL (0-125); Osmolality Calculated 296 mOsm/kg (285-295); Potassium 4.2 mmol/L (3.5-5.1); Sodium 140 mmol/L (136-145); Thyroid Stimulating Hormone 4.38 uIU/mL (0.27-4.20); Total Bilirubin 0.3 mg/dL (0.15-1.2); Total Protein 6.7 g/dL (6.6-8.7)
--- NOTE | 2020-11-17 04:46 | ECG_ITS ---
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1945 Requested By: Madhav Venegas Order Number: [id number] Reading MD: DENICE CASTRO Measurements Intervals [place] Rate: 48 P: 80 [place]: 157 QRS: -26 QRSD: 80 T: 42 QT: 428 QTc: 385 Interpretive Statements SINUS BRADYCARDIA LOW QRS VOLTAGE IN PRECORDIAL LEADS [QRS DEFLECTION < 1.0 mV IN CHEST LEADS] POSSIBLE ANTERIOR MYOCARDIAL INFARCTION [30 ms Q WAVE IN V3/V4, OR R < 0.2 mV IN V4], PROBABLY OLD Compared to ECG 11/17/2020 02:28:50 Myocardial infarct finding now present Atrial fibrillation no longer present ST (T wave) deviation no longer present Electronically Signed On 11-17-2020 20:30:55 CDT by DENICE CASTRO [email or web address]
--- NOTE | 2020-11-17 06:25 | W.ED.CHESTPA ---
HPI - Chest Pain General: Chief Complaint: Chest Pain Stated Complaint: cp Time Seen by Provider: 11/17/20 02:37 History of Present Illness: HPI narrative: 75-year-old female with a history of atrial fibrillation. She presents with a weight on my chest and palpitations that started this evening she is mildly short of breath. She is not nauseated. She has not thrown up. She has had these episodes prior when her heart rate comes up with her atrial fibrillation. She took her metoprolol at home with no improvement. MD complaint: chest pain Pertinent past history: other Onset (ago): hour(s) Timing of current episode: constant Prior episodes: Yes Onset: during rest Pain location: substernal Pain radiation: none Severity: moderate Quality: heaviness Relieving factors: nothing Exacerbating factors: nothing Associated symptoms: Reports dyspnea and palpitations; Deny abdominal pain, diaphoresis, fever(s), leg edema, nausea or vomiting Treatment prior to arrival: other Review of Systems Const: Denies: fever(s) or diaphoresis Eyes: Denies: change in vision Card: Reports: chest pain, palpitations and irregular heart rhythm; Denies: swelling of feet/ankles Resp: Reports: dyspnea GI: Denies: abdominal pain, nausea or vomiting Neuro: Denies: headache(s) PFSH ED PFSH: Medical History Chronic cystitis History of bladder cancer History of hematuria Palpitations Surgical History S/P ear surgery S/P lateral meniscus repair of right knee Status post surgical removal and fulguration of bladder neoplasm Family History Mother , in her 70's Cancer Father , at age 79 CAD (coronary artery disease) Social History Alcohol intake: current Alcohol intake frequency: holidays/special occasions only Adopted: No Caregiver/support person: No Lives independently: Yes Marital status: Current occupational status: retired History of recent travel: No Current gender identity: Female Physical Exam Const: GENERAL APPEARANCE: well developed ORIENTATION/CONSCIOUSNESS: Yes oriented to person, Yes oriented to place and Yes oriented to time HENMT: COMMON NORMALS: normocephalic HEAD & SCALP: normocephalic Eye: COMMON NORMALS: Equal, round and reactive pupils present, EOMs intact bilaterally and conjunctivae normal EYELID: eyelids normal CONJUNCTIVA: Yes conjunctivae normal PUPIL: Yes Equal, round and reactive pupils present Neck/C-Spine: GENERAL: No tracheal deviation Chest: COMMONS NORMALS: normal inspection of the chest CHEST: No tenderness Resp: COMMON NORMALS: clear to auscultation bilaterally EFFORT & INSPECTION: No tachypneic, No respiratory distress, No retractions, No uses accessory muscles and No tracheal deviation AUSCULTATION: clear to auscultation bilaterally, no rhonchi, no wheezes and lung sounds not diminished Cardio: RATE: tachycardic RHYTHM: abnormal rhythm irregularly irregular HEART SOUNDS: no murmurs PERIPHERAL PULSES: radial pulses present GI: INSPECTION: No abdominal distension AUSCULTATION: No Hyperactive bowel sounds present and No Hypoactive bowel sounds present PALPATION: No Guarding due to palpation present (GI) and No Rigid due to palpation PERCUSSION: no dullness to percussion and no tympanic to percussion Neuro: SENSORIUM/ORIENTATION: Yes oriented to person, Yes oriented to place and Yes oriented to time Psych: COMMON NORMALS: mental status grossly normal Skin: COMMON NORMALS: no rashes or lesions noted GENERAL SKIN EXAM: no rashes or lesions noted Course Vital Signs: Vital signs: Vital Signs Temperature 97.9 F 11/17/20 02:20 Pulse Rate 59 L 11/17/20 07:17 Respiratory Rate 18 11/17/20 07:17 Blood Pressure 131/73 11/17/20 07:17 Pulse Oximetry 96 11/17/20 07:17 MDM - Chest Pain MDM Narrative: Medical decision making narrative: Patient presents tachycardic and irregular with some chest pressure. Heart rate was in the 130s to 140. She was given 3 mg of a 5 mg push of metoprolol, and she converted to a sinus bradycardia with a rate in the 60s. She has been there since. Her symptoms are improved. Second troponin did not elevate. No acute ST changes by EKG. She will be allowed discharge Lab Data: Labs: Lab Results 11/17/20 11/17/20 11/17/20 Range/Units 02:40 02:40 02:40 WBC 7.0 (4.0-10.0) 10^3/ uL RBC 4.67 (4.1-5.3) 10^6/u L Hgb 13.8 (11.5-15.3) g/dL Hct 43.6 (37.0-47.0) % MCV 93.4 (81-99) fL MCH 29.6 (28.0-34.0) pg MCHC 31.7 (30.0-36.0) g/dL RDW 14.6 (12.1-15.1) % Plt Count 202 (130-400) 10^3/c mm MPV 13.0 H (7.4-10.4) fL Neut % (Auto) 69.8 % Lymph % (Auto) 20.1 % [place] % (Auto) 7.0 % Eos % (Auto) 2.4 % Baso % (Auto) 0.4 % Neut # (Auto) 4.86 (1.8-7.7) 10^3/u L Lymph # (Auto) 1.4 (0.8-4.8) 10^3/u L [place] # (Auto) 0.5 (0.2-0.9) 10^3/u L Eos # (Auto) 0.2 (0.0-0.8) 10^3/u L Baso # (Auto) 0.0 (0.0-0.1) 10^3/u L Nucleated RBC % (a uto) 0 % Nucleated RBCs # 0.0 /100WBC D-Dimer 3.67 H (0-0.59) ug/mIFE U Sodium 140 (136-145) mmol/L Potassium 4.2 (3.5-5.1) mmol/L Chloride 103 (98-107) mmol/L Carbon Dioxide 26 (22-29) mmol/L Anion Gap 15.2 (5-19) BUN 28 H (8-23) mg/dL Creatinine 0.9 (0.5-0.9) mg/dL GFR Calculation Not Reportable Glucose 101 (65-115) mg/dL Calculated Osmolal ity 296 H (285-295) mOsm/k g Calcium 9.0 (8.5-10.5) mg/dL Total Bilirubin 0.3 (0.15-1.2) mg/dL AST 26 (0-32) U/L ALT 30 (0-33) U/L Alkaline Phosphata se 90 (35-105) IU/L Creatine Kinase 43 (26-192) U/L Troponin T Baselin e (0-10) ng/L Delta Troponin T (0-10) ABS# NT-Pro-B Natriuret Pep 361 H (0-125) pg/mL Total Protein 6.7 (6.6-8.7) g/dL Albumin 4.3 (3.5-5.2) g/dL Globulin 2.4 (1.3-4.6) g/dL TSH 4.38 H (0.27-4.20) uIU/ mL 11/17/20 11/17/20 Range/Units 02:40 05:53 WBC (4.0-10.0) 10^3/ uL RBC (4.1-5.3) 10^6/u L Hgb (11.5-15.3) g/dL Hct (37.0-47.0) % MCV (81-99) fL MCH (28.0-34.0) pg MCHC (30.0-36.0) g/dL RDW (12.1-15.1) % Plt Count (130-400) 10^3/c mm MPV (7.4-10.4) fL Neut % (Auto) % Lymph % (Auto) % [place] % (Auto) % Eos % (Auto) % Baso % (Auto) % Neut # (Auto) (1.8-7.7) 10^3/u L Lymph # (Auto) (0.8-4.8) 10^3/u L [place] # (Auto) (0.2-0.9) 10^3/u L Eos # (Auto) (0.0-0.8) 10^3/u L Baso # (Auto) (0.0-0.1) 10^3/u L Nucleated RBC % (a uto) % Nucleated RBCs # /100WBC D-Dimer (0-0.59) ug/mIFE U Sodium (136-145) mmol/L Potassium (3.5-5.1) mmol/L Chloride (98-107) mmol/L Carbon Dioxide (22-29) mmol/L Anion Gap (5-19) BUN (8-23) mg/dL Creatinine (0.5-0.9) mg/dL GFR Calculation Glucose (65-115) mg/dL Calculated Osmolal ity (285-295) mOsm/k g Calcium (8.5-10.5) mg/dL Total Bilirubin (0.15-1.2) mg/dL AST (0-32) U/L ALT (0-33) U/L Alkaline Phosphata se (35-105) IU/L Creatine Kinase (26-192) U/L Troponin T Baselin e 8 (0-10) ng/L Delta Troponin T 3.87 (0-10) ABS# NT-Pro-B Natriuret Pep (0-125) pg/mL Total Protein (6.6-8.7) g/dL Albumin (3.5-5.2) g/dL Globulin (1.3-4.6) g/dL TSH (0.27-4.20) uIU/ mL Discharge Plan Discharge Patient Disposition: Home Clinical Impression: Atrial fibrillation Qualifiers: Atrial fibrillation type: paroxysmal Qualified Code(s): I48.0 - Paroxysmal atrial fibrillation Condition: Stable Prescriptions: No Action methylprednisolone acetate [Depo-Medrol] 40 mg/mL suspension 40 mg intra-articular ONCE Qty: 1 RF: 0 bupivacaine (PF) 0.25 % (2.5 mg/mL) solution 2.5 mg intra-articular ONCE Qty: 1 RF: 0 lidocaine (PF) 10 mg/mL (1 %) solution 10 mg intra-articular ONCE Qty: 1 RF: 0 quwwgpjh-hpihmiu-zzvn-lutein Tablet PO DAILY RF: 0 aspirin 325 mg tablet 325 mg PO DAILY 90 Days Qty: 90 RF: 3 Neuriva Plus Brain Performance 1.7 mg-400 mcg- 2.4 mcg capsule PO .1 day RF: 0 metoprolol tartrate 25 mg tablet 12.5 mg PO DAILY PRN (Reason: tachycardia) Qty: 45 RF: 3 Aleve 220 mg Tablet 220 mg PO BID PRN (Reason: Pain) RF: 0 Vitamin D3 400 unit Capsule 400 unit PO DAILY RF: 0 magnesium 200 mg tablet 400 mg PO DAILY RF: 0 Discharge Orders: Discharge ED (Routine); Ordered 11/17/20 Ordered By: Madhav Villeda Referrals: Maribel Mendes MD [Primary Care Provider] - 4-7 days Discharge Diet: Advance as tolerated Discharge Activity: Increase activity as tolerated Patient Instructions: Atrial Fibrillation (ED) Activity Restrictions/Additional Instructions: Return for return of chest discomfort, palpitations or rapid heart rate, any other concerning symptoms. Coding Level of Care Code ED Bench Hand Machine for Chg Fwd Exam Comprehensive
[2020-11-17 07:07] LABS: Troponin 5 2HR 11.87 ng/L (0-10); Troponin 5 2HR Delta 3.87 ABS# (0-10)
== END 2020-11-17 08:25 | disposition home or self-care (01) ==
PROVIDERS: Emergency Provider Emergency Medicine; PCP Family Medicine
DX: I48.0 Paroxysmal atrial fibrillation (principal)
CPT/HCPCS: 36415; 71045; 80053; 82550; 83880; 84443; 84484; 85025; 85378; 93005; 96374; 99284; J3490

== ENCOUNTER → 2020-11-29 13:01 | Outpatient (BNVA) | payer MEDICARE, SELFPAY | PROVIDERS: PCP Family Medicine; Visit Provider Anesthesiology Pain Medicine | DX: G89.29 Other chronic pain (principal); M25.552 Pain in left hip; M19.90 Unspecified osteoarthritis, unspecified site; M54.5 Low back pain; M79.605 Pain in left leg | CPT/HCPCS: 99214 ==

== ENCOUNTER 2021-01-02 12:41 | Outpatient (CLI) | payer MEDICARE, SELFPAY ==
--- NOTE | 2021-01-02 13:16 | MR_ITS ---
WS: [id number] MRI LEFT HIP without CONTRAST. COMPARISON: LEFT hip radiograph 06/15/2020 Multiplanar, multisequence imaging is performed without contrast. Moderate size joint effusion surrounding the LEFT hip. There is increased T2 signal extending through out the muscle of the adductor lena. Signal extends from the femoral head to the symphysis pubis. There is a large amount of increased T2 marrow signal involving the acetabulum. Marrow edema extends into the femoral head and femoral neck. There is moderate narrowing of the joint space. Loss of the n ormal cortex surrounding the LEFT femoral head. Loss of the normal joint space. Not a typical appeara nce for osteonecrosis. May be all related to osteoarthritis and the recent fall. Cannot exclude a non displaced fracture through the femoral head as there is interruption of the trabecular pattern. The RIGHT hip is negative without significant degenerative changes. Lobulated cystic structure in the RIGHT adnexa measures 5.0 x 6.0 cm. No connection to the bladder. P robably an ovarian cyst. MR/MR hip LT con* [id number] IMPRESSION: 1. Advanced degenerative changes at the LEFT hip joint with edema throughout t he acetabulum, femoral neck and head. 2. Moderate joint effusion and synovitis. 3. Extensive edema within the adductor lena. 4. Extensive marrow edema in the femoral head and changes suspicious for trabe cular injury and microfractures. 5. RIGHT adnexal cystic mass measures 5.0 x 6.0 cm. Recommend follow-up transv aginal pelvic ultrasound.
== END 2021-01-02 12:42 | disposition home or self-care (01) ==
LOC: RADSHAW 12:42
PROVIDERS: PCP Family Medicine; Visit Provider Orthopaedic Surgery
DX: M16.12 Unilateral primary osteoarthritis, left hip (principal); M25.452 Effusion, left hip; R60.0 Localized edema; M65.88 Other synovitis and tenosynovitis, other site
CPT/HCPCS: 73721

== ENCOUNTER 2021-03-10 07:49 | Emergency (ER) | payer MEDICARE, SELFPAY ==
--- NOTE | 2021-03-10 07:56 | ED_ITS ---
HPI - General Adult General: Chief complaint: Dizziness Stated complaint: chills, dizziness, dehydration, sob Time Seen by Provider: 03/10/21 07:54 History of Present Illness: HPI narrative: Ms. Black is a 75-year-old lady with a remote history of bladder cancer known history of atrial fibrillation not on anticoagulation (patient choice) who presents emerged department due to dizziness and generalized malaise. Symptom onset was subacute approximately 12 hours ago. She does not recall any specific provoking factor. She took a metoprolol and felt improved however had symptoms again this morning at about 630. She does endorse mild chest discomfort associated with this and generalized malaise. She describes flashing sensation with her heart rate. Otherwise denies changes in medications, signs of systemic illness, changes in p.o. intake, other specific exacerbating or alleviating factors. Review of Systems General: Reports: 10 or more systems reviewed and unremarkable except in HPI and below PFSH ED PFSH: Medical History Chronic cystitis History of bladder cancer History of hematuria Palpitations Surgical History S/P ear surgery S/P lateral meniscus repair of right knee Status post surgical removal and fulguration of bladder neoplasm Family History Mother , in her 70's Cancer Father , at age 79 CAD (coronary artery disease) Social History Alcohol intake: current Alcohol intake frequency: holidays/special occasions only Adopted: No Caregiver/support person: No Lives independently: Yes Marital status: Current occupational status: retired History of recent travel: No Current gender identity: Female Physical Exam Narrative: EXAM NARRATIVE: GENERAL/CONSTITUTIONAL - well-appearing. No acute distress. Eyes - PERRL, no conjunctival injection ENMT - Atraumatic external nose and ears. Moist mucous membranes NECK - supple. trachea midline CARDIOVASCULAR -irregularly irregular rhythm. Tachycardia. Normal peripheral perfusion RESPIRATORY -clear to auscultation bilaterally. No retractions or accessory muscle use. ABDOMEN/GI - Nontender/Nondistended. MSK - Extremities without obvious deformity or tenderness to palpation SKIN - Warm, Dry NEURO - alert and appropriately oriented. Moves all extremities equally. Course ED course: - Patient was seen and evaluated by me at bedside - Patient placed on cardiac monitors, IV access obtained - Initial evaluation notable for no acute distress, nontoxic appearance. Atrial fibrillation with rapid ventricular response, adequate blood pressure. - patient had conversion spontaneously shortly after initial evaluation - Labs notable for no acute abnormality to explain patient's symptoms or occurrence of atrial fibrillation - Imaging notable for negative chest - Upon serial reexamination after treatment the patient was improved - Based on patient history, evaluation, labs, and imaging as interpreted the most likely cause of the patient's condition is atrial fibrillation with rapid ventricular response. I did discuss the patient with cardiology on-call, very limited options for medications typically started from the emergency department due to blood pressure and heart rate. Discussed with patient, she is comfortable waiting for follow-up with cardiology prior to medication changes. - The results of ED evaluation were discussed with the patient including prescriptions and/or symptomatic cares (if applicable) including appropriate and responsible use, followup plan, and return precautions. The patient verbalized understanding and felt safe for discharge. - Patient discharged in satisfactory condition. Vital Signs: Vital signs: Vital Signs Temperature 97.6 F 03/10/21 07:58 Pulse Rate 58 L 03/10/21 12:22 Respiratory Rate 18 03/10/21 12:22 Blood Pressure 122/81 03/10/21 12:22 Pulse Oximetry 99 03/10/21 12:22 MDM - General Adult Medical Records: Attestation: I reviewed the patient's medical records. Lab Data: Attestation: I reviewed the patient's lab results. Labs: Lab Results 03/10/21 03/10/21 03/10/21 08:15 08:15 08:15 WBC 5.2 10^3/uL 10^3/ uL (4.0-10.0) RBC 4.71 10^6/uL 10^6 /uL (4.1-5.3) Hgb 14.1 g/dL g/dL (11.5-15.3) Hct 43.6 % % (37.0-47.0) MCV 92.6 fl fl (81-99) MCH 29.9 pg pg (28.0-34.0) MCHC 32.3 g/dL g/dL (30.0-36.0) RDW 14.2 % % (12.1-15.1) Plt Count 195 10^3/cmm 10^3 /cmm (130-400) MPV 12.4 fL H fL (7.4-10.4) Neut % (Auto) 69.4 % % Lymph % (Auto) 16.4 % % [place] % (Auto) 8.0 % % Eos % (Auto) 5.2 % % Baso % (Auto) 0.8 % % Neut # (Auto) 3.63 10^3/uL 10^3 /uL (1.8-7.7) Lymph # (Auto) 0.9 10^3/uL 10^3/ uL (0.8-4.8) [place] # (Auto) 0.4 10^3/uL 10^3/ uL (0.2-0.9) Eos # (Auto) 0.3 10^3/uL 10^3/ uL (0.0-0.8) Baso # (Auto) 0.0 10^3/uL 10^3/ uL (0.0-0.1) Nucleated RBC % (a uto) 0 % % Nucleated RBCs # 0.0 /100WBC /100W BC Sodium 140 mmol/L mmol/L (136-145) Potassium 4.4 mmol/L mmol/L (3.5-5.1) Chloride 104 mmol/L mmol/L (98-107) Carbon Dioxide 26 mmol/L mmol/L (22-29) Anion Gap 14.4 (5-19) BUN 16 mg/dL mg/dL (8-23) Creatinine 0.9 mg/dL mg/dL (0.5-0.9) GFR Calculation Not Reportable Glucose 81 mg/dL mg/dL (65-115) Calculated Osmolal ity 290 mOsm/kg mOsm/ kg (285-295) Calcium 9.5 mg/dL mg/dL (8.5-10.5) Magnesium 2.1 mg/dL mg/dL (1.7-2.3) Total Bilirubin 0.4 mg/dL mg/dL (0.15-1.2) AST 22 U/L U/L (0-32) ALT 20 U/L U/L (0-33) Alkaline Phosphata se 86 IU/L IU/L (35-105) Troponin T Baselin e 15 ng/L H ng/L (0-10) Troponin T 120 Min [place] Troponin T NT-Pro-B Natriuret Pep 1867 pg/mL H pg/m L (0-125) Total Protein 6.4 g/dL L g/dL (6.6-8.7) Albumin 4.2 g/dL g/dL (3.5-5.2) Globulin 2.2 g/dL g/dL (1.3-4.6) TSH 6.17 uIU/mL H uIU /mL (0.27-4.20) Free T4 03/10/21 03/10/21 08:15 10:54 WBC RBC Hgb Hct MCV MCH MCHC RDW Plt Count MPV Neut % (Auto) Lymph % (Auto) [place] % (Auto) Eos % (Auto) Baso % (Auto) Neut # (Auto) Lymph # (Auto) [place] # (Auto) Eos # (Auto) Baso # (Auto) Nucleated RBC % (a uto) Nucleated RBCs # Sodium Potassium Chloride Carbon Dioxide Anion Gap BUN Creatinine GFR Calculation Glucose Calculated Osmolal ity Calcium Magnesium Total Bilirubin AST ALT Alkaline Phosphata se Troponin T Baselin e Troponin T 120 Min [place] 13.36 ng/L H ng/L (0-10) Delta Troponin T -1.64 ABS# L ABS# (0-10) NT-Pro-B Natriuret Pep Total Protein Albumin Globulin TSH Free T4 1.12 ng/dL ng/dL (0.82-1.77) EKG Data^: EKG 1: Attestation: I personally reviewed and interpreted this EKG as follows: EKG interpretation date: 03/10/21 EKG interpretation time: 08:13 Interpretation: Twelve-lead EKG irregular rhythm at a rate of 125 No NM interval, QRS duration 96, QTc 374 Left axis deviation Interpretation: Atrial fibrillation with rapid ventricular response. Computer generated interpretation: Chest X-Ray 03/10/21 08:11 IMPRESSION: Stable exam. No acute findings. Radiation Dose CTDIVOL = (mGy): DLP = (mGy-cm) EKG 2: Attestation: I personally reviewed and interpreted this EKG as follows: EKG interpretation date: 03/10/21 EKG interpretation time: 08:21 Interpretation: Twelve-lead EKG shows a regular rhythm at a rate of 56 NM interval 160, QRS duration 86, QTc 379 Left axis deviation Interpretation: Sinus bradycardia Computer generated interpretation: Chest X-Ray 03/10/21 08:11 IMPRESSION: Stable exam. No acute findings. Radiation Dose CTDIVOL = (mGy): DLP = (mGy-cm) EKG 3: Attestation: I personally reviewed and interpreted this EKG as follows: EKG interpretation date: 03/10/21 EKG interpretation time: 10:17 Interpretation: Twelve-lead EKG shows a regular rhythm at a rate of 54 NM interval 149, QRS duration 94, QTc 404 Left axis deviation Interpretation: Sinus bradycardia Computer generated interpretation: Chest X-Ray 03/10/21 08:11 IMPRESSION: Stable exam. No acute findings. Radiation Dose CTDIVOL = (mGy): DLP = (mGy-cm) Discharge Plan Discharge Patient Disposition: Home Clinical Impression: Atrial fibrillation with RVR, Dizziness Condition: Stable Prescriptions: No Action axvceokq-nlugwvd-zotb-lutein Tablet PO DAILY RF: 0 aspirin 325 mg tablet 325 mg PO DAILY 90 Days Qty: 90 RF: 3 Neuriva Plus Brain Performance 1.7 mg-400 mcg- 2.4 mcg capsule PO .1 day RF: 0 metoprolol succinate 25 mg tablet extended release 24 hr 25 mg PO DAILY Qty: 90 RF: 3 amoxicillin 500 mg capsule 500 mg PO BID Qty: 60 RF: 2 Aleve 220 mg Tablet 220 mg PO BID PRN (Reason: Pain) RF: 0 Vitamin D3 400 unit Capsule 400 unit PO DAILY RF: 0 magnesium 200 mg tablet 400 mg PO DAILY RF: 0 Discharge Orders: Discharge ED (Routine); Ordered 03/10/21 Ordered By: Kevin Muir Referrals: Maribel Mendes MD [Primary Care Provider] - Discharge Diet: Usual diet Discharge Activity: Resume usual activity Patient Instructions: A-fib (Atrial Fibrillation) (ED) Activity Restrictions/Additional Instructions: Thank you for visiting the emergency department. You were seen and evaluated for dizziness. You are found to have atrial fibrillation with rapid ventricular response which is likely the cause of your symptoms however this resolved without treatment. I did discuss the case with cardiology and you may require medication change however the medication that you need is not typically started from the emergency department. Please follow-up with cardiology this week. Please return to the emergency department for recurrent or worsening symptoms or anything else that you are concerned about and feel needs emergency department evaluation. Coding Level of Care Code ED Denture Finisher for Renea Chakraborty
[2021-03-10 07:58] VITALS: PULSE 118; RESP 16; TEMP 36.4; O2SAT 98; BMI 26.0
--- NOTE | 2021-03-10 08:03 | ECG_ITS ---
[facility] Test Date: 2021-03-10 Pat Name: Destiny Quintana Department: Room: Gender: Female Laboratory Assistant: : 1945 Requested By: Kevin Muir Order Number: [id number] Lizbet MD: Eulalia Turner M.D. Measurements Intervals [place] Rate: 125 P: ID: QRS: -29 QRSD: 96 T: 46 QT: 300 QTc: 433 Interpretive Statements ATRIAL FIBRILLATION WITH RAPID VENTRICULAR RESPONSE BORDERLINE LEFT AXIS DEVIATION [QRS AXIS < -20] LOW QRS VOLTAGE IN PRECORDIAL LEADS [QRS DEFLECTION < 1.0 mV IN CHEST LEADS] MINIMAL ST DEPRESSION [0.025+ mV ST DEPRESSION] ABNORMAL RHYTHM ECG Compared to ECG 11/17/2020 04:43:37 ST (T wave) deviation now present Sinus bradycardia no longer present Myocardial infarct finding no longer present Electronically Signed On 03-10-2021 15:53:29 GLUE BONE CRUSHER by Eulalia Turner M.D. [id number]
--- NOTE | 2021-03-10 08:11 | XRR_ITS ---
PROCEDURE INFORMATION: Exam: XR Chest Exam date and time: 03/10/2021 8:11 AM Age: 75 years old Clinical indication: Other: Afib rvr TECHNIQUE: Imaging protocol: XR of the chest. Views: 1 view. COMPARISON: CR (CHEST, ) 11/17/2020 2:49 AM FINDINGS: Lungs: Hyperinflated lungs with scarring at the lung apices and lung bases. No consolidation. Pleural spaces: Unremarkable. No pleural effusion. No pneumothorax. Heart/Mediastinum: Cardiomegaly, similar to prior exam. Bones/joints: Unremarkable. XR/XR chest 1V portable [id number] IMPRESSION: Stable exam. No acute findings. Radiation Dose CTDIVOL = (mGy): DLP = (mGy-cm)
--- NOTE | 2021-03-10 08:12 | ECG_ITS ---
[facility] Test Date: 2021-03-10 Pat Name: Destiny Quintana Department: Room: Gender: Female Card Boxer: : 1945 Requested By: Kevin Muir Order Number: [id number] Lizbet MD: Eulalia Turner M.D. Measurements Intervals [place] Rate: 56 P: 79 SD: 160 QRS: -41 QRSD: 86 T: 14 QT: 386 QTc: 375 Interpretive Statements SINUS BRADYCARDIA LEFT AXIS DEVIATION [QRS AXIS < -30] Compared to ECG 03/10/2021 08:12:38 Atrial fibrillation no longer present ST (T wave) deviation no longer present Electronically Signed On 03-10-2021 15:53:34 PERFORMANCE TEST ENGINEER by Eulalia Turner M.D. [id number]
[2021-03-10 08:27] LABS: Basophils % 0.8 %; Eosinophils # 0.3 10^3/uL (0.0-0.8); Eosinophils % 5.2 %; Hematocrit 43.6 % (37.0-47.0); Hemoglobin 14.1 g/dL (11.5-15.3); Lymphocytes # 0.9 10^3/uL (0.8-4.8); Lymphocytes % 16.4 %; Mean Corpuscular HGB Conc 32.3 g/dL (30.0-36.0); Mean Corpuscular Hemoglobin 29.9 pg (28.0-34.0); Mean Corpuscular Volume 92.6 fl (81-99); Mean Platelet Volume 12.4 fL (7.4-10.4); Monocytes # 0.4 10^3/uL (0.2-0.9); Neutrophils # 3.63 10^3/uL (1.8-7.7); Neutrophils % 69.4 %; Nucleated Red Blood Cells % 0 %; Platelet Count 195 10^3/cmm (130-400); Red Blood Count 4.71 10^6/uL (4.1-5.3); Red Cell Distribution Width 14.2 % (12.1-15.1); White Blood Count 5.2 10^3/uL (4.0-10.0)
[2021-03-10 08:35] VITALS: BP 120/63; PULSE 54; RESP 18; O2SAT 99
[2021-03-10 08:46] LABS: Troponin(5th) Baseline 15 ng/L (0-10)
[2021-03-10 08:56] LABS: Alanine Aminotransferase 20 U/L (0-33); Albumin Level 4.2 g/dL (3.5-5.2); Alkaline Phosphatase 86 IU/L (35-105); Anion Gap 14.4 (5-19); Aspartate Amino Transferase 22 U/L (0-32); Blood Urea Nitrogen 16 mg/dL (8-23); Calcium 9.5 mg/dL (8.5-10.5); Carbon Dioxide 26 mmol/L (22-29); Chloride 104 mmol/L (98-107); Globulin 2.2 g/dL (1.3-4.6); Glucose 81 mg/dL (65-115); Magnesium 2.1 mg/dL (1.7-2.3); NT Pro B Type Natriuretic Pept 1867 pg/mL (0-125); Osmolality Calculated 290 mOsm/kg (285-295); Potassium 4.4 mmol/L (3.5-5.1); Sodium 140 mmol/L (136-145); Thyroid Stimulating Hormone 6.17 uIU/mL (0.27-4.20); Total Bilirubin 0.4 mg/dL (0.15-1.2); Total Protein 6.4 g/dL (6.6-8.7)
[2021-03-10] MEDS: lactated ringers 500 ML 999 ML IV (09:02)
[2021-03-10 09:13] VITALS: BP 108/57; BP 108/68; BP 111/65; PULSE 57; PULSE 64; PULSE 65
--- NOTE | 2021-03-10 10:12 | ECG_ITS ---
[facility] Test Date: 2021-03-10 Pat Name: Destiny Quintana Department: Room: Gender: Female Oiler Bander: : 1945 Requested By: Kevin Muir Order Number: [id number] Lizbet MD: Eulalia Turner M.D. Measurements Intervals [place] Rate: 54 P: 80 MT: 149 QRS: -43 QRSD: 94 T: 8 QT: 419 QTc: 398 Interpretive Statements SINUS BRADYCARDIA LEFT AXIS DEVIATION [QRS AXIS < -30] LOW QRS VOLTAGE IN PRECORDIAL LEADS [QRS DEFLECTION < 1.0 mV IN CHEST LEADS] Compared to ECG 03/10/2021 08:19:48 Low QRS voltage now present Electronically Signed On 03-10-2021 15:56:52 TOP SCREW by Eulalia Turner M.D. [id number]
[2021-03-10 10:18] VITALS: BP 118/52; PULSE 55; RESP 16; O2SAT 98
[2021-03-10 10:25] LABS: Free T4 Free Thyroxine 1.12 ng/dL (0.82-1.77)
[2021-03-10 11:31] LABS: Troponin 5 2HR 13.36 ng/L (0-10)
[2021-03-10 11:43] LABS: Troponin 5 2HR Delta -1.64 ABS# (0-10)
[2021-03-10 12:22] VITALS: BP 122/81; PULSE 58; RESP 18; O2SAT 99
--- NOTE | 2021-03-11 13:50 | DCPLANNER ---
unit trust manager had message to schedule a follow up appointment for patient with [facility]. unit trust manager called [facility], spoke with Ami, gave clinic patients information. A follow up appointment was scheduled for Thursday, March 20, 2021 at 10:15 with STONECUTTER, Celeste Barnhart. unit trust manager called and left a voicemail for patient with the appointment information.
--- NOTE | 2021-04-17 14:37 | DCPLANNER ---
Patient had a follow up appointment scheduled for 03.21.21 with [facility] - patient did attend appointment.
== END 2021-03-10 12:20 | disposition home or self-care (01) ==
PROVIDERS: Emergency Provider Emergency Medicine; PCP Family Medicine
DX: I48.20 Chronic atrial fibrillation, unspecified (principal); R42 Dizziness and giddiness; Z79.82 Long term (current) use of aspirin; Z85.51 Personal history of malignant neoplasm of bladder
CPT/HCPCS: 71045; 80053; 83735; 83880; 84439; 84443; 84484; 85025; 93005; 99284

== ENCOUNTER → 2021-04-16 09:12 | Outpatient (BNVA) | payer MEDICARE, SELFPAY | PROVIDERS: PCP Family Medicine; Visit Provider Nurse Practitioner Family | DX: N30.20 Other chronic cystitis without hematuria (principal) | CPT/HCPCS: 81003 ==

== ENCOUNTER → 2021-05-03 11:06 | Outpatient (BNVA) | payer MEDICARE, SELFPAY | PROVIDERS: PCP Family Medicine; Visit Provider Nurse Practitioner Family | DX: N30.20 Other chronic cystitis without hematuria (principal); R33.9 Retention of urine, unspecified | CPT/HCPCS: 81003 ==

== ENCOUNTER → 2021-08-19 13:26 | Outpatient (BNVA) | payer MEDICARE, SELFPAY | PROVIDERS: PCP Family Medicine; Visit Provider Nurse Practitioner Family | DX: I48.0 Paroxysmal atrial fibrillation (principal); R00.2 Palpitations; R00.1 Bradycardia, unspecified; R60.0 Localized edema; Z87.891 Personal history of nicotine dependence | CPT/HCPCS: 80048; 83880; 85025; 93005; 99214 ==

== ENCOUNTER 2021-09-04 12:23 | Emergency (ER) | payer MEDICARE, SELFPAY ==
[2021-09-04 12:28] VITALS: BP 93/58; PULSE 67; RESP 18; TEMP 36.8; O2SAT 99; BMI 26.0
--- NOTE | 2021-09-04 12:35 | ED_ITS ---
HPI - General Adult General: Chief complaint: General Medical Stated complaint: Dizziness Time Seen by Provider: 09/04/21 12:35 History of Present Illness: 76-year-old female presents to the emergency department chief complaint of syncope and near syncope patient reports has a known history of atrial fibrillation recently seen by her deicer element winder machine in which she was placed on some diuretics. As patient has been recent swelling in both of her legs. Patient reports that she has had several episodes of the last couple of days where she is nearly passed out she reports that besides this recent medication change has had no other associated changes reports no recent infections or illnesses nor any other associated symptoms. Associated symptoms: Deny chest pain, dyspnea, malaise, nausea, rash, palpitations or vomiting Review of Systems General: Reports: 10 or more systems reviewed and unremarkable except in HPI and below Const: Denies: fever(s), chills, fatigue or malaise Eyes: Denies: change in vision or blurry vision Card: Denies: chest pain or palpitations Resp: Denies: dyspnea or productive cough GI: Denies: abdominal pain, nausea or vomiting : Denies: flank pain Musc: Denies: extremity pain or extremity swelling Skin/Breast: Denies: rash or pruritus Neuro: Reports: dizziness Psych: Denies: anxiety or depression Dwight/Lymph: Denies: easy bleeding All/Imm: Denies: urticaria, throat swelling or facial swelling PFSH ED PFSH: Medical History Chronic cystitis History of bladder cancer History of hematuria Incomplete bladder emptying Palpitations Paroxysmal atrial fibrillation Surgical History S/P ear surgery S/P lateral meniscus repair of right knee Status post surgical removal and fulguration of bladder neoplasm Family History Mother , in her 70's Cancer Father , at age 79 CAD (coronary artery disease) Social History Smoking and tobacco status: former smoker Alcohol intake: current Alcohol intake frequency: holidays/special occasions only Adopted: No Caregiver/support person: No Lives independently: Yes Marital status: Current occupational status: retired History of recent travel: No Current gender identity: Female Physical Exam Const: COMMON NORMALS: no acute distress, patient oriented x3 and healthy appearing HENMT: COMMON NORMALS: normocephalic and atraumatic HEAD & SCALP: normocephalic and atraumatic Eye: COMMON NORMALS: Equal, round and reactive pupils present and EOMs intact bilaterally PUPIL: Yes Equal, round and reactive pupils present Neck/C-Spine: COMMON NORMALS: full ROM, supple and no JVD Lymph: LYMPHATIC: no lymphadenopathy noted Chest: COMMONS NORMALS: normal inspection of the chest and normal palpation of entire chest wall Resp: COMMON NORMALS: normal respiratory effort, No retractions and clear to auscultation bilaterally EFFORT & INSPECTION: Yes able to speak in complete sentences and Yes symmetric chest movement AUSCULTATION: clear to auscultation bilaterally Cardio: COMMON NORMALS: no JVD, regular rate and regular rhythm RATE: regular rate RHYTHM: regular rhythm GI: COMMON NORMALS: Normal to inspection, nondistended, normoactive bowel sounds present, Soft to palpation and non-tender INSPECTION: Yes normal to inspection PALPATION: Yes Soft to palpation : COMMON NORMALS: Yes no CVA tenderness BLADDER/KIDNEY EXAM: Yes no CVA tenderness Back/Pelvis: COMMON NORMALS: no CVA tenderness Extremity: COMMON NORMALS: normal to inspection and full ROM Neuro: COMMON NORMALS: patient oriented x3, CN's II-XII intact bilaterally, moves all extremities and no focal motor deficits Psych: COMMON NORMALS: mental status grossly normal, Normal thought process present, cooperative and normal affect THOUGHT PROCESS: Normal thought process present Skin: COMMON NORMALS: no rashes or lesions noted GENERAL SKIN EXAM: no rashes or lesions noted Course Vital Signs: Vital signs: Vital Signs Temperature 98.2 F 09/04/21 13:51 Pulse Rate 65 09/04/21 13:51 Respiratory Rate 16 09/04/21 13:51 Blood Pressure 112/89 09/04/21 13:51 Pulse Oximetry 96 09/04/21 13:51 [facility] - General Adult Medical Decision Making Due to the patient's symptoms and condition lab work and imaging will be obtained we will continue to follow underlying concerns of medication issue is his primary medication side effect patient was provided IV fluid bolus she reports no current chest pain or palpitations associated with her near syncope reporting no other associated symptoms. Lab work and imaging came back reassuring patient upon reassessment was improved in regards to her hypotension patient was felt to discharge home advised increase water consumption advised further follow-up with primary care in 2 to 3 days which patient was advised to return in the interim if any of her symptoms persist or worse. Lab Data : 09/04/21 13:40 09/04/21 13:40 Radiology Impressions Chest X-Ray 09/04/21 13:01 Impression: 1. Atherosclerosis and cardiomegaly. 2. Hyperinflation. Laboratory Results WBC 5.4 10^3/uL (4.0-10.0) 09/04/21 13:40 RBC 4.24 10^6/uL (4.1-5.3) 09/04/21 13:40 Hgb 12.5 g/dL (11.5-15.3) 09/04/21 13:40 Hct 38.9 % (37.0-47.0) 09/04/21 13:40 MCV 91.7 fl (81-99) 09/04/21 13:40 MCH 29.5 pg (28.0-34.0) 09/04/21 13:40 MCHC 32.1 g/dL (30.0-36.0) 09/04/21 13:40 RDW 14.0 % (12.1-15.1) 09/04/21 13:40 Plt Count 176 10^3/cmm (130-400) 09/04/21 13:40 MPV 12.7 fL (7.4-10.4) H 09/04/21 13:40 Neut % (Auto) 76.0 % 09/04/21 13:40 Lymph % (Auto) 14.0 % 09/04/21 13:40 [place] % (Auto) 7.4 % 09/04/21 13:40 Eos % (Auto) 1.8 % 09/04/21 13:40 Baso % (Auto) 0.4 % 09/04/21 13:40 Neut # (Auto) 4.14 10^3/uL (1.8-7.7) 09/04/21 13:40 Lymph # (Auto) 0.8 10^3/uL (0.8-4.8) 09/04/21 13:40 [place] # (Auto) 0.4 10^3/uL (0.2-0.9) 09/04/21 13:40 Eos # (Auto) 0.1 10^3/uL (0.0-0.8) 09/04/21 13:40 Baso # (Auto) 0.0 10^3/uL (0.0-0.1) 09/04/21 13:40 Nucleated RBC % (auto) 0 % 09/04/21 13:40 Nucleated RBCs # 0.0 /100WBC 09/04/21 13:40 Sodium 139 mmol/L (136-145) 09/04/21 13:40 Potassium 4.2 mmol/L (3.5-5.1) 09/04/21 13:40 Chloride 102 mmol/L (98-107) 09/04/21 13:40 Carbon Dioxide 27 mmol/L (22-29) 09/04/21 13:40 Anion Gap 14.2 (5-19) 09/04/21 13:40 BUN 22 mg/dL (8-23) 09/04/21 13:40 Creatinine 1.0 mg/dL (0.5-0.9) H 09/04/21 13:40 GFR Calculation Not Reportable 09/04/21 13:40 Glucose 151 mg/dL (65-115) H 09/04/21 13:40 POC Glucose 162 mg/dL (70-110) H 09/04/21 13:26 Calculated Osmolality 294 mOsm/kg (285-295) 09/04/21 13:40 Calcium 9.5 mg/dL (8.5-10.5) 09/04/21 13:40 Total Bilirubin 0.4 mg/dL (0.15-1.2) 09/04/21 13:40 AST 20 U/L (0-32) 09/04/21 13:40 ALT 14 U/L (0-33) 09/04/21 13:40 Alkaline Phosphatase 74 IU/L (35-105) 09/04/21 13:40 Troponin T Baseline 15 ng/L (0-10) H 09/04/21 13:40 C-Reactive Protein 4.3 mg/L (0.0-4.9) 09/04/21 13:40 NT-Pro-B Natriuret Pep 319 pg/mL (0-450) 09/04/21 13:40 Total Protein 6.9 g/dL (6.6-8.7) 09/04/21 13:40 Albumin 4.1 g/dL (3.5-5.2) 09/04/21 13:40 Globulin 2.8 g/dL (1.3-4.6) 09/04/21 13:40 Urine Color Yellow (Yellow) 09/04/21 15:06 Urine Appearance Clear (CLEAR) 09/04/21 15:06 Urine pH 8 (5-7) H 09/04/21 15:06 Ur Specific [place] 1.010 (1.005-1.030) 09/04/21 15:06 Urine Protein Neg (Negative) 09/04/21 15:06 Urine Glucose (UA) Norm (Normal) 09/04/21 15:06 Urine Ketones Negative (Negative) 09/04/21 15:06 Urine Blood Neg (Negative) 09/04/21 15:06 Urine Nitrate Negative (Negative) 09/04/21 15:06 Urine Bilirubin Neg (Negative) 09/04/21 15:06 Prot Sulfosalicylic Acd Negative (Negative) 09/04/21 15:06 Urine Urobilinogen Norm mg/dL (Negative) 09/04/21 15:06 Ur Leukocyte Esterase Trace (Negative) H 09/04/21 15:06 Urine RBC None /hpf (0-2) 09/04/21 15:06 Urine WBC 0-4 /hpf (0-5) H 09/04/21 15:06 Ur Squamous Epith Cells 15-25 /hpf (0-5) H 09/04/21 15:06 Ur Transition Epith Cell 0-4 /hpf 09/04/21 15:06 Amorphous Sediment Not Reportable 09/04/21 15:06 Urine Bacteria Trace /hpf (NONE) 09/04/21 15:06 Urine Yeast 3+ /hpf H 09/04/21 15:06 EKG Data Sinus bradycardia rate of [address] segment elevations or depressions appreciated.: Computer generated interpretation: Chest X-Ray 09/04/21 13:01 Impression: 1. Atherosclerosis and cardiomegaly. 2. Hyperinflation. Discharge Plan Discharge Patient Disposition: Home Clinical Impression: Postural dizziness with near syncope, Orthostatic hypotension Condition: Stable Prescriptions: No Action metoprolol succinate 25 mg tablet extended release 24 hr 25 mg PO DAILY Qty: 90 3RF prevagen 1 cap PO DAILY 0RF metoprolol tartrate 25 mg tablet 25 mg PO DAILY PRN (Reason: rapid heart rate) Qty: 30 0RF Rx Instructions: For use NEEDED ONLY, with rapid heart rate furosemide 20 mg tablet 20 mg PO DAILY PRN (Reason: edema) Qty: 30 3RF naproxen sodium [Aleve] 220 mg Tablet 220 mg PO BID PRN (Reason: Pain) 0RF multivitamin Tablet 1 tab PO DAILY 0RF magnesium 250 mg Tablet 250 mg PO .TWICE A WEEK PRN (Reason: unknown) 0RF Vitamin D3 1 cap PO EVERY OTHER DAY 0RF amoxicillin 500 mg capsule 500 mg PO BID 0RF aspirin 325 mg tablet 325 mg PO EVERY OTHER DAY 0RF tamsulosin 0.4 mg capsule 0.4 mg PO BEDTIME 0RF Discharge Orders: Discharge ED (Routine); Ordered 09/04/21 Ordered By: Shai Perkins Referrals: Maribel Mendes MD [Primary Care Provider] - Discharge Diet: Advance as tolerated Discharge Activity: Increase activity as tolerated Patient Instructions: Opioid Safety Activity Restrictions/Additional Instructions: Follow-up with your primary care doctor in 2 to 3 days, take medication as prescribed increase your water consumption and return the interim if any of your symptoms persist or worse. Coding Level of Care Code ED Design/Animation Instructor for Renea Fwtania Exam Comprehensive
[2021-09-04 12:57] VITALS: BP 79/57; PULSE 67; RESP 16; O2SAT 96
--- NOTE | 2021-09-04 13:01 | XR_ITS ---
WS: [id number] Portable AP upright chest, 09/04/2021 Clinical Data: dizziness Comparison: Portable chest, 03/10/2021. Findings: No nodules, masses or effusions are seen. The heart is slightly enlarged. The pulmonary vas cularity is not increased. No pneumonia or pneumothorax is seen. The aortic arch and descending thora cic aorta show calcification and tortuosity. The diaphragms are flattened. XR/XR chest 1V portable [id number] Impression: 1. Atherosclerosis and cardiomegaly. 2. Hyperinflation.
--- NOTE | 2021-09-04 13:04 | ECG_ITS ---
[facility] Test Date: 2021-09-04 Pat Name: Destiny Quintana Department: Room: Gender: Female Film Waxer: : 1945 Requested By: Shai Perkins Order Number: [id number] Lizbet MD: Sonam Williamson M.D. Measurements Intervals [place] Rate: 61 P: 80 CA: 157 QRS: -12 QRSD: 84 T: 44 QT: 416 QTc: 421 Interpretive Statements SINUS RHYTHM LOW QRS VOLTAGE IN PRECORDIAL LEADS [QRS DEFLECTION < 1.0 mV IN CHEST LEADS] POSSIBLE ANTERIOR MYOCARDIAL INFARCTION , PROBABLY OLD [30 ms Q WAVE IN V3/V4, OR R < 0.2 mV IN V4] Compared to ECG 03/10/2021 10:13:06 Myocardial infarct finding now present Sinus bradycardia no longer present Left-axis deviation no longer present Electronically Signed On 09-04-2021 20:18:43 CDT by Sonam Williamson M.D. [email or web address].[place]/store/[id number]
[2021-09-04 13:31] LABS: Glucose Point of Care 162 mg/dL (70-110)
[2021-09-04 13:46] LABS: Basophils % 0.4 %; Eosinophils # 0.1 10^3/uL (0.0-0.8); Eosinophils % 1.8 %; Hematocrit 38.9 % (37.0-47.0); Hemoglobin 12.5 g/dL (11.5-15.3); Lymphocytes # 0.8 10^3/uL (0.8-4.8); Mean Corpuscular HGB Conc 32.1 g/dL (30.0-36.0); Mean Corpuscular Hemoglobin 29.5 pg (28.0-34.0); Mean Corpuscular Volume 91.7 fl (81-99); Mean Platelet Volume 12.7 fL (7.4-10.4); Monocytes # 0.4 10^3/uL (0.2-0.9); Monocytes % 7.4 %; Neutrophils # 4.14 10^3/uL (1.8-7.7); Nucleated Red Blood Cells % 0 %; Platelet Count 176 10^3/cmm (130-400); Red Blood Count 4.24 10^6/uL (4.1-5.3); White Blood Count 5.4 10^3/uL (4.0-10.0)
[2021-09-04] MEDS: sodium chloride 0.9% 1,000 ML 999 ML IV (13:46)
[2021-09-04 13:51] VITALS: BP 112/89; PULSE 65; RESP 16; TEMP 36.8; O2SAT 96
[2021-09-04 14:54] LABS: Troponin(5th) Baseline 15 ng/L (0-10)
[2021-09-04 15:02] LABS: Alanine Aminotransferase 14 U/L (0-33); Albumin Level 4.1 g/dL (3.5-5.2); Alkaline Phosphatase 74 IU/L (35-105); Anion Gap 14.2 (5-19); Aspartate Amino Transferase 20 U/L (0-32); Blood Urea Nitrogen 22 mg/dL (8-23); C Reactive Protein 4.3 mg/L (0.0-4.9); Calcium 9.5 mg/dL (8.5-10.5); Carbon Dioxide 27 mmol/L (22-29); Chloride 102 mmol/L (98-107); Globulin 2.8 g/dL (1.3-4.6); Glucose 151 mg/dL (65-115); NT Pro B Type Natriuretic Pept 319 pg/mL (0-450); Osmolality Calculated 294 mOsm/kg (285-295); Potassium 4.2 mmol/L (3.5-5.1); Sodium 139 mmol/L (136-145); Total Bilirubin 0.4 mg/dL (0.15-1.2); Total Protein 6.9 g/dL (6.6-8.7)
--- NOTE | 2021-09-04 15:04 | ECG_ITS ---
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 Measurements Intervals [place] Rate: 53 P: 73 CA: 173 QRS: -26 QRSD: 101 T: 42 QT: 417 QTc: 394 Interpretive Statements SINUS BRADYCARDIA BORDERLINE LEFT AXIS DEVIATION [QRS AXIS < -20] LOW QRS VOLTAGE IN PRECORDIAL LEADS [QRS DEFLECTION < 1.0 mV IN CHEST LEADS] Compared to ECG 09/04/2021 13:15:54 Sinus rhythm no longer present Myocardial infarct finding no longer present Electronically Signed On 09-04-2021 20:26:03 CDT by Sonam Williamson M.D. [id number]
[2021-09-04 15:09] LABS: Creatinine Clr Calc Pharmacy 44.5923
[2021-09-04 15:53] LABS: Urine Appearance Clear (CLEAR); Urine Color Yellow (Yellow)
[2021-09-04 15:55] LABS: Add Urine Microscopic? YES; Bilirubin Urine Neg (Negative); Blood Urine Neg (Negative); Glucose Urine UA Norm (Normal); Ketones Urine Negative (Negative); Leukocyte Esterase Urine Trace (Negative); Nitrate Urine Negative (Negative); Protein Urine Neg (Negative); Sulfosalicylic Acid Urine Negative (Negative); Urobilinogen Urine Norm (Negative); pH Urine 8 (5-7)
[2021-09-04 16:03] LABS: Bacteria Urine TRACE /hpf; Squamous Epithelial Cell Urine 15-25 /hpf (0-5); Transitional Epi Cells Urine 0-4 /hpf; WBC Urine 0-4 /hpf (0-5)
[2021-09-04 16:26] LABS: Add Urine Culture? Yes
[2021-09-04 16:33] VITALS: BP 119/87; PULSE 69; RESP 16; TEMP 36.8; O2SAT 97
[2021-09-04 16:35] VITALS: BP 119/87; PULSE 69; RESP 16; TEMP 36.8; O2SAT 97
== END 2021-09-04 16:37 | disposition home or self-care (01) ==
PROVIDERS: Emergency Provider Emergency Medicine; PCP Family Medicine
DX: I95.1 Orthostatic hypotension (principal); R42 Dizziness and giddiness; R55 Syncope and collapse; I48.91 Unspecified atrial fibrillation; Z79.82 Long term (current) use of aspirin
CPT/HCPCS: 36416; 71045; 80053; 81001; 82962; 83880; 84484; 85025; 86140; 87086; 93005; 96360; 99284; J7030

== ENCOUNTER → 2021-09-09 13:37 | Outpatient (BNVA) | payer MEDICARE, SELFPAY | PROVIDERS: PCP Family Medicine; Visit Provider Nurse Practitioner Family | DX: N30.20 Other chronic cystitis without hematuria (principal); R33.9 Retention of urine, unspecified | CPT/HCPCS: 51798; 81003; 99213 ==

== ENCOUNTER → 2021-09-23 10:27 | Outpatient (BNVA) | payer MEDICARE, SELFPAY | PROVIDERS: PCP Family Medicine; Visit Provider Nurse Practitioner Family | DX: N30.20 Other chronic cystitis without hematuria (principal); R33.9 Retention of urine, unspecified | CPT/HCPCS: 51798; 81003; 99213 ==

== ENCOUNTER 2021-11-01 08:54 | Outpatient (CLI) | payer MEDICARE, SELFPAY ==
--- NOTE | 2021-11-01 10:00 | US_ITS ---
WS: [id number] RENAL ULTRASOUND HISTORY: Chronic Cystitis COMPARISON: MRI 01/02/2021 TECHNIQUE: 2-D and color Doppler imaging of the kidney submitted. Right kidney: 9.0 cm x 3.8 cm x 4.0 cm. Normal echogenicity with no hydronephrosis or mass. Left kidney: 11.2 cm x 4.4 cm x 4.1 cm. Normal echogenicity with no hydronephrosis or mass. Aorta: Mild atherosclerosis. No aneurysm. Urinary Bladder: Normal distention. While imaging the bladder a loculated cystic mass was noted in the central pelvis and just to the RIG HT of midline. This is a cystic mass with thick septation and a small amount of increased vascularity along the septation. The entire cystic mass measures 5.5 x 6.1 x 3.7 cm. This mass was also describe d on the MRI LEFT hip from 01/02/2021 and further evaluation was recommended at that time. Very minima l increase in size since the prior study. US/US renal BI* [id number] IMPRESSION: 1. Normal renal ultrasound. 2. RIGHT adnexal cystic mass with septations measures 5.5 x 6.1 x 3.7 cm. Very minimal increased vascularity within the septation. The septation is very mild ly thickened. Recommend additional evaluation with transvaginal pelvic ultrasou nd imaging versus surgical removal. Benign serous cystadenoma and malignant ova alexia epithelial neoplasm should be considered. Consider elevated CEA 125 evalua tion also.
== END 2021-11-01 08:55 | disposition home or self-care (01) ==
PROVIDERS: PCP Family Medicine; Visit Provider Urology
DX: N30.20 Other chronic cystitis without hematuria (principal); R33.9 Retention of urine, unspecified; N83.291 Other ovarian cyst, right side; Z85.51 Personal history of malignant neoplasm of bladder
CPT/HCPCS: 51798; 52000; 76770; 81003; 99214

== ENCOUNTER 2021-11-20 08:40 | Observation (INO) | payer MEDICARE, SELFPAY ==
[2021-11-20] VITALS (12 sets, daily range): BP systolic 61–148; BP diastolic 49–82; PULSE 49–77; RESP 14–24; TEMP 36.4–36.5; O2SAT 97–100; BMI 25.7; BMI 25.8
--- NOTE | 2021-11-20 08:44 | ECG_ITS ---
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 Measurements Intervals [place] Rate: 59 P: 101 AR: 149 QRS: -21 QRSD: 82 T: 48 QT: 400 QTc: 399 Interpretive Statements SINUS BRADYCARDIA BORDERLINE LEFT AXIS DEVIATION [QRS AXIS < -20] LOW QRS VOLTAGE [QRS DEFLECTION < 0.5/1.0 mV IN LIMB/CHEST LEADS] Compared to ECG 09/04/2021 15:55:19 No significant changes Electronically Signed On 11-20-2021 19:40:26 CDT by Sonam Williamson M.D. [email or web address]/store/[id number]
--- NOTE | 2021-11-20 08:44 | XRR_ITS ---
PROCEDURE INFORMATION: Exam: XR Chest Exam date and time: 11/20/2021 8:54 AM Age: 76 years old Clinical indication: Right-sided; Patient HX: History--right side chest pain for last 3 weeks, has worsened over time TECHNIQUE: Imaging protocol: Radiologic exam of the chest. Views: 1 view. COMPARISON: CR XR chest 1V portable [id number] 09/04/2021 1:46 PM FINDINGS: Lungs: The lung parenchyma is clear. Mildly prominent interstitial markings. Pleural spaces: No pneumothorax. No pleural effusion. Heart/Mediastinum: The cardiomediastinal silhouette is within normal limits. Bones/joints: Unremarkable. XR/XR chest 1V portable [id number] IMPRESSION: No acute cardiopulmonary abnormality.
--- NOTE | 2021-11-20 09:06 | ED_ITS ---
HPI - Chest Pain General: Chief Complaint: Chest Pain Stated Complaint: sob, chest pain Time Seen by Provider: 11/20/21 08:46 History of Present Illness: Ms. Quintana is a 76-year-old lady who presents to the emergency department due to generalized symptoms. She reports an extended duration of generalized malaise including shortness of breath. Overall this has been increasing and this morning she reports lower blood pressure with a near syncopal type feeling. Additionally she endorses aching right chest pain which she feels is associated with her shortness of breath. Overall course of symptoms has worsened. Intensity is moderate. Denies infectious symptoms. No other specific changes in health, exacerbating, or alleviating factors identified. Onset (ago): week(s) Timing of current episode: increasing Pain location: right chest Pain radiation: none Severity: moderate Quality: aching Relieving factors: nothing Exacerbating factors: nothing Associated symptoms: Reports dyspnea and other Review of Systems General: Reports: 10 or more systems reviewed and unremarkable except in HPI and below Resp: Reports: dyspnea PFSH ED PFSH: Medical History (Updated 11/28/21 @ 00:01 by ) Chest pain Chronic cystitis History of bladder cancer History of hematuria Incomplete bladder emptying Lung nodule Palpitations Paroxysmal atrial fibrillation Surgical History S/P ear surgery S/P lateral meniscus repair of right knee Status post surgical removal and fulguration of bladder neoplasm Family History Mother , in her 70's Cancer Father , at age 79 CAD (coronary artery disease) Social History Smoking and tobacco status: never smoked Alcohol intake: current Alcohol intake frequency: holidays/special occasions only Alcohol type: wine Adopted: No Caregiver/support person: No Lives independently: Yes Marital status: Current occupational status: retired History of recent travel: No Current gender identity: Female Physical Exam Const: COMMON NORMALS: alert GENERAL APPEARANCE: cooperative and well developed HENMT: COMMON NORMALS: normocephalic and atraumatic HEAD & SCALP: normocephalic and atraumatic Eye: COMMON NORMALS: conjunctivae normal CONJUNCTIVA: Yes conjunctivae normal SCLERA: sclerae normal Neck/C-Spine: COMMON NORMALS: supple GENERAL: Yes trachea midline Resp: COMMON NORMALS: normal respiratory effort and clear to auscultation bilaterally EFFORT & INSPECTION: Yes able to speak in complete sentences A USCULTATION: clear to auscultation bilaterally Cardio: COMMON NORMALS: regular rate and regular rhythm RATE: regular rate RHYTHM: regular rhythm GI: COMMON NORMALS: Soft to palpation PALPATION: Yes Soft to palpation and No Tenderness to palpation present (GI) PERCUSSION: normal to percussion Extremity: GENERAL: Yes normal exam except as noted and No edema Neuro: COMMON NORMALS: moves all extremities SENSORIUM/ORIENTATION: Yes alert and No Orientation impaired Psych: COMMON NORMALS: mental status grossly normal and Normal thought process present THOUGHT PROCESS: Normal thought process present Course ED course: - Patient was seen and evaluated by me at bedside - Patient placed on cardiac monitors, IV access obtained - Initial evaluation notable for exam as above - Labs and xrays personally interpreted by me. EKG notable for sinus bradycardia with nonspecific ST segment abnormalities, no STEMI. - Aspirin and fluids given - Labs notable for no leukocytosis, normal hemoglobin. Metabolic panel with mildly elevated creatinine. Delta troponin negative. COVID-negative. - Imaging notable for no lobar consolidation or pneumothorax. - Upon serial reexamination after treatment the patient was similar to mildly improved. Orthostatics still positive. - Based on patient history, evaluation, and testing as interpreted the most likely cause of the patient's condition is chest pain - The results of ED evaluation were discussed with the patient including possibl e disposition options. Patient is not low risk by heart score. She prefers inpatient testing. I discussed plan for admission. Patient agreeable to plan. - Admitting service was contacted and Dr Olivares with the hospitalist service agreed to admit the patient - Patient was admitted without further deterioration or significant events. Note: Click bubbles or prepopulated hess in note writing are used for assistance with data collection and billing and are inherently more limited than narrative and other text portions of this note. Please use narrative for additional clinical history and defer to narrative/free test for any case of contradictory information. If information appears in only free text or click bubble it should be considered present or absent as reported. Please contact note automobile service writer for clarifications of clinical information or contradictory information. BALDEMAR is a brief summary, contradictory or erroneous seeming information should be clarified and full note should be reviewed. Vital Signs: Vital signs: Vital Signs Temperature 98.5 F 11/27/21 13:21 Pulse Rate 57 L 11/27/21 13:21 Respiratory Rate 16 11/27/21 13:21 Blood Pressure 97/56 11/27/21 13:21 Pulse Oximetry 94 11/27/21 13:21 Oxygen Delivery Me thod 11/27/21 11:15 Oxygen Flow Rate 96 11/21/21 12:00 MDM - Chest Pain Medical Decision Making 76-year-old lady presenting with generalized illness and chest pain. No clear etiology identified on ED evaluation. Patient not low risk by heart score. Admitted for further management and testing. Medical Records I reviewed the patient's medical records. Lab Data I reviewed the patient's lab results. : 11/26/21 03:02 11/26/21 03:02 Radiology Impressions Chest X-Ray 11/20/21 08:44 IMPRESSION: No acute cardiopulmonary abnormality. Chest CTA 11/21/21 14:34 IMPRESSION: 1. Proximal main pulmonary arteries are normal. No evidence of pulmonary embolus. 2. Slight bibasilar atelectasis. No focal pneumonia or pleural fluid. 3. Cardiomegaly. Tiny pericardial effusion. 4. Aneurysmal ascending thoracic aorta measuring 3.7 CM. 5. Noncalcified nodule RIGHT upper lobe near the lung apex measuring 6 mm. This appears stable since June 17, [address] 11/23/21 12:27 IMPRESSION: 1. No CT evidence of acute fracture or dislocation. If the patient's clinical symptoms persist or worsen, MRI would provide a more sensitive evaluation for occult fracture. 2. Additional findings, as above. Hip MRI 11/25/21 09:30 IMPRESSION: 1. 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 Degenerative changes progressed compared to previous. 2. Mild edema in the LEFT femoral head and acetabulum extending into the LEFT femoral neck. 3. No significant joint effusion. 4. Urine distended bladder. 5. Partially evaluated cystic adnexal lesion appears stable compared to January 02, 2021 MRI measuring 6.0 x 4.0. This can be followed up with pelvic ultrasound. Laboratory Results WBC 6.3 10^3/uL (4.0-10.0) 11/20/21 09:17 RBC 4.26 10^6/uL (4.1-5.3) 11/20/21 09:17 Hgb 12.5 g/dL (11.5-15.3) 11/20/21 09:17 Hct 39.7 % (37.0-47.0) 11/20/21 09:17 MCV 93.2 fl (81-99) 11/20/21 09:17 MCH 29.3 pg (28.0-34.0) 11/20/21 09:17 MCHC 31.5 g/dL (30.0-36.0) 11/20/21 09:17 RDW 15.0 % (12.1-15.1) 11/20/21 09:17 Plt Count 166 10^3/cmm (130-400) 11/20/21 09:17 MPV 12.4 fL (7.4-10.4) H 11/20/21 09:17 Neut % (Auto) 76.9 % 11/20/21 09:17 Lymph % (Auto) 12.0 % 11/20/21 09:17 [place] % (Auto) 6.9 % 11/20/21 09:17 Eos % (Auto) 3.2 % 11/20/21 09:17 Baso % (Auto) 0.5 % 11/20/21 09:17 Neut # (Auto) 4.88 10^3/uL (1.8-7.7) 11/20/21 09:17 Lymph # (Auto) 0.8 10^3/uL (0.8-4.8) 11/20/21 09:17 [place] # (Auto) 0.4 10^3/uL (0.2-0.9) 11/20/21 09:17 Eos # (Auto) 0.2 10^3/uL (0.0-0.8) 11/20/21 09:17 Baso # (Auto) 0.0 10^3/uL (0.0-0.1) 11/20/21 09:17 Nucleated RBC % (auto) 0 % 11/20/21 09:17 Nucleated RBCs # 0.0 /100WBC 11/20/21 09:17 D-Dimer 2.87 ug/mIFEU (0-0.59) H 11/20/21 09:17 Sodium 141 mmol/L (136-145) 11/20/21 09:17 Potassium 4.2 mmol/L (3.5-5.1) 11/20/21 09:17 Chloride 102 mmol/L (98-107) 11/20/21 09:17 Carbon Dioxide 29 mmol/L (22-29) 11/20/21 09:17 Anion Gap 14.2 (5-19) 11/20/21 09:17 BUN 22 mg/dL (8-23) 11/20/21 09:17 Creatinine 1.1 mg/dL (0.5-0.9) H 11/20/21 09:17 GFR Calculation Not Reportable 11/20/21 09:17 Glucose 99 mg/dL (65-115) 11/20/21 09:17 Calculated Osmolality 295 mOsm/kg (285-295) 11/20/21 09:17 Calcium 9.8 mg/dL (8.5-10.5) 11/20/21 09:17 Total Bilirubin 0.5 mg/dL (0.15-1.2) 11/20/21 09:17 AST 21 U/L (0-32) 11/20/21 09:17 ALT 18 U/L (0-33) 11/20/21 09:17 Alkaline Phosphatase 84 IU/L (35-105) 11/20/21 09:17 Troponin T Baseline 19 ng/L (0-10) H 11/20/21 09:17 Troponin T 120 Minute 14.34 ng/L (0-10) H 11/20/21 11:22 Delta Troponin T -4.66 ABS# (0-10) L 11/20/21 11:22 NT-Pro-B Natriuret Pep 530 pg/mL (0-450) H 11/20/21 09:17 Total Protein 6.6 g/dL (6.6-8.7) 11/20/21 09:17 Albumin 4.3 g/dL (3.5-5.2) 11/20/21 09:17 Globulin 2.3 g/dL (1.3-4.6) 11/20/21 09:17 Lipase 31 U/L (13-60) 11/20/21 09:17 TSH 3.66 uIU/mL (0.27-4.20) 11/20/21 09:17 SARS-CoV-2 Ag (Rapid) Negative (Negative) 11/20/21 10:15 Discharge Plan Discharge Patient Disposition: Placed in Observation Admit Provider: Santino Olivares Clinical Impression: Chest pain, Orthostatic hypotension Discharge Diet: Usual diet Discharge Activity: Use walker/crutches as instructed Coding Level of Care Code ED Radio Time Sales Supervisor for Chg Fwd Exam Comprehensive
--- NOTE | 2021-11-20 09:21 | PC.NURSE ---
PT PLACED ON CONTINUOUS NIBP, SPO2, AND CM
[2021-11-20 09:29] LABS: Basophils % 0.5 %; Eosinophils # 0.2 10^3/uL (0.0-0.8); Eosinophils % 3.2 %; Hematocrit 39.7 % (37.0-47.0); Hemoglobin 12.5 g/dL (11.5-15.3); Lymphocytes # 0.8 10^3/uL (0.8-4.8); Mean Corpuscular HGB Conc 31.5 g/dL (30.0-36.0); Mean Corpuscular Hemoglobin 29.3 pg (28.0-34.0); Mean Corpuscular Volume 93.2 fl (81-99); Mean Platelet Volume 12.4 fL (7.4-10.4); Monocytes # 0.4 10^3/uL (0.2-0.9); Monocytes % 6.9 %; Neutrophils # 4.88 10^3/uL (1.8-7.7); Neutrophils % 76.9 %; Nucleated Red Blood Cells % 0 %; Platelet Count 166 10^3/cmm (130-400); Red Blood Count 4.26 10^6/uL (4.1-5.3); White Blood Count 6.3 10^3/uL (4.0-10.0)
[2021-11-20 09:56] LABS: Alanine Aminotransferase 18 U/L (0-33); Albumin Level 4.3 g/dL (3.5-5.2); Alkaline Phosphatase 84 IU/L (35-105); Anion Gap 14.2 (5-19); Aspartate Amino Transferase 21 U/L (0-32); Blood Urea Nitrogen 22 mg/dL (8-23); Calcium 9.8 mg/dL (8.5-10.5); Carbon Dioxide 29 mmol/L (22-29); Chloride 102 mmol/L (98-107); Globulin 2.3 g/dL (1.3-4.6); Glucose 99 mg/dL (65-115); Lipase 31 U/L (13-60); Osmolality Calculated 295 mOsm/kg (285-295); Potassium 4.2 mmol/L (3.5-5.1); Sodium 141 mmol/L (136-145); Total Bilirubin 0.5 mg/dL (0.15-1.2); Total Protein 6.6 g/dL (6.6-8.7); Troponin(5th) Baseline 19 ng/L (0-10)
[2021-11-20 09:57] LABS: Creatinine Clr Calc Pharmacy 40.2853
[2021-11-20 10:09] LABS: Thyroid Stimulating Hormone 3.66 uIU/mL (0.27-4.20)
[2021-11-20 10:37] LABS: NT Pro B Type Natriuretic Pept 530 pg/mL (0-450)
[2021-11-20 10:41] LABS: SARS Covid-2 Antigen Negative (Negative)
--- NOTE | 2021-11-20 10:45 | ECG_ITS ---
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 Measurements Intervals [place] Rate: 49 P: 72 NM: 163 QRS: -33 QRSD: 80 T: 29 QT: 442 QTc: 401 Interpretive Statements SINUS BRADYCARDIA WITH OCCASIONAL SUPRAVENTRICULAR PREMATURE COMPLEXES LEFT AXIS DEVIATION [QRS AXIS < -30] LOW QRS VOLTAGE IN PRECORDIAL LEADS [QRS DEFLECTION < 1.0 mV IN CHEST LEADS] Compared to ECG 11/20/2021 09:13:39 No significant changes Electronically Signed On 11-20-2021 19:48:17 CDT by Sonam Williamson M.D. [email or web address].[employer]/store/[id number]
[2021-11-20] MEDS: sodium chloride 0.9% 1,000 ML 999 ML IV (10:51)
[2021-11-20 11:56] LABS: Troponin 5 2HR 14.34 ng/L (0-10); Troponin 5 2HR Delta -4.66 ABS# (0-10)
[2021-11-20] MEDS: aspirin 81 mg Chew Tablet 324 MG PO (14:05)
--- NOTE | 2021-11-20 14:43 | ECG_ITS ---
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 Measurements Intervals [place] Rate: 51 P: 83 HI: 166 QRS: -37 QRSD: 81 T: 29 QT: 441 QTc: 409 Interpretive Statements SINUS BRADYCARDIA LEFT AXIS DEVIATION [QRS AXIS < -30] LOW QRS VOLTAGE IN PRECORDIAL LEADS [QRS DEFLECTION < 1.0 mV IN CHEST LEADS] Compared to ECG 11/20/2021 10:45:22 No significant changes Electronically Signed On 11-20-2021 19:46:19 CDT by Sonam Williamson M.D. [id number]
--- NOTE | 2021-11-20 14:54 | PM.HP ---
Providers/Chief Complaint Primary Care Provider: Maribel Mendes MD Chief Complaint: sob, chest pain History of Present Illness Pleasant 76-year lady with history of recurrent urinary tract infections with history of incomplete bladder emptying, long-term antibiotic therapy with amoxicillin over the last year, also on tamsulosin twice daily reports over the last several weeks has had more trouble with fatigability on exertion, even when trying to make her bed for example, and since today was also having some chest pain on the right side. Did not necessarily notice correlation with exertion. Initially perhaps some more difficulty breathing with it, but not currently. Did notice symptomatic relief after a dose of nitroglycerin. She notes also has been experiencing more falls recently with episodes of lightheadedness. She is also noted to have history of pulmonary hypertension for which she was following with cardiology with Dr. Overton before he had left. Denies ever having had right heart catheterization. Denies having had any history of VT or coronary stenting. In ER noted quite significantly orthostatic hypotensive, blood pressure 108/60-97/62-61/49 from laying to sitting to standing. Currently symptoms with improvement after 1 L bolus of fluid. Mild persistent discomfort on the right side of her chest earlier. Review of Systems Const: Reports: fatigue (w exertion); Denies: fever(s), chills, body aches or malaise Eyes: Denies: change in vision, eye discomfort or eye redness ENMT: Denies: throat pain, oral sores or ear or mastoid pain Card: Reports: chest pain, lightheadedness, pre-syncope and dyspnea on exertion; Denies: edema or swelling of feet/ankles Resp: Denies: productive cough, change in phlegm color or hemoptysis GI: Denies: abdominal pain, nausea, vomiting, diarrhea, constipation, hematochezia or melena : Denies: flank pain, urinary frequency or hematuria Musc: Denies: back pain, joint swelling or joint redness Skin/Breast: Denies: rash or new lesions Neuro: Reports: frequent falls; Denies: headache(s), numbness in extremities, weakness in extremities, dizziness, confusion or seizure-like activity Endo: Denies: polyuria or polydipsia Dwight/Lymph: Denies: easy bleeding or tender lymph nodes All/Imm: Denies: urticaria or tongue swelling Medications/Allergies Home Medications Medication Instructions Recorded Confirmed Last Taken Type naproxen sodium 220 mg tablet 220 mg PO BID PRN Pain 06/17/19 11/20/21 11/20/21 History (Aleve) metoprolol succinate 25 mg 25 mg PO DAILY #90 tabs 11/20/20 11/20/21 11/19/21 Rx tablet,extended release 24 hr furosemide 20 mg tablet 20 mg PO DAILY PRN edema #30 tabs 08/19/21 11/20/21 11/19/21 Rx aspirin 325 mg tablet 325 mg PO EVERY OTHER DAY 09/04/21 11/20/21 11/19/21 History magnesium 250 mg tablet 250 mg PO .TWICE A WEEK PRN unknown 09/04/21 11/20/21 11/19/21 History multivitamin 1 tab PO DAILY 09/04/21 11/20/21 Unknown History polyethylene glycol 3350 17 gram 17 g PO DAILY PRN Constipation 11/01/21 11/20/21 Unknown History oral powder packet (Miralax) tamsulosin 0.4 mg capsule 0.4 mg PO BEDTIME #30 caps 11/07/21 11/20/21 11/19/21 Rx amoxicillin 500 mg capsule 500 mg PO BID #60 caps 11/14/21 11/20/21 11/19/21 Rx Allergies Allergy/AdvReac Type Severity Reaction Status Date / Time No Known Allergies Allergy Verified 11/20/21 10:01 PFSH Acute PFSH: Medical History Chronic cystitis History of bladder cancer History of hematuria Incomplete bladder emptying Palpitations Paroxysmal atrial fibrillation Surgical History S/P ear surgery S/P lateral meniscus repair of right knee Status post surgical removal and fulguration of bladder neoplasm Family History Mother , in her 70's Cancer Father , at age 79 CAD (coronary artery disease) Social History Smoking and tobacco status: never smoked Alcohol intake: current Alcohol intake frequency: holidays/special occasions only Alcohol type: wine Adopted: No Caregiver/support person: No Lives independently: Yes Marital status: Current occupational status: retired History of recent travel: No Current gender identity: Female Vitals/I&O/Wt Last Vital Signs Temp 97.7 F 11/20/21 09:11 Pulse 52 L 11/20/21 12:30 Resp 20 H 11/20/21 12:30 BP 143/82 11/20/21 12:30 Pulse Ox 99 11/20/21 12:30 O2 Del Method 11/20/21 12:30 Weight last 48 hrs Weight 65.771 kg Physical Exam Const: COMMON NORMALS: patient oriented x3 and alert GENERAL APPEARANCE: cooperative ORIENTATION/CONSCIOUSNESS: Yes awake HENMT: COMMON NORMALS: oropharynx normal Neck/C-Spine: COMMON NORMALS: no JVD Resp: COMMON NORMALS: normal respiratory effort and clear to auscultation bilaterally AUSCULTATION: clear to auscultation bilaterally Cardio: COMMON NORMALS: no JVD, regular rhythm, S1 normal heart sound present, S2 normal heart sound present and No murmurs present (Cardio) RATE: bradycardic RHYTHM: regular rhythm HEART SOUNDS: S1 normal heart sound present and S2 normal heart sound present GI: COMMON NORMALS: Normal to inspection, nondistended, normoactive bowel sounds present, Soft to palpation and non-tender PALPATION: Yes Soft to palpation Extremity: COMMON NORMALS: no joint enlargement and no pedal edema Neuro: COMMON NORMALS: patient oriented x3 and moves all extremities SENSORIUM/ORIENTATION: Yes alert Skin: COMMON NORMALS: no rashes or lesions noted GENERAL SKIN EXAM: no rashes or lesions noted Data : 11/20/21 09:17 11/20/21 09:17 A&P Assessment and plan (1) Chest pain: Complete troponin EKG series. Monitor on telemetry. Assess TTE. Check D-dimer. Stress test in the morning. Status: Acute (2) Orthostatic hypotension: Hold Lasix. Discussed with her potential for orthostatic hypotension with tamsulosin. She has tried cutting down on the medication in the past, but has become symptomatic with urinary tract symptoms again unfortunately. As per her description she really needs to continue on twice daily tamsulosin. Discussed with her we will need to reassess and see if not persistently orthostatic after rehydration, and if blood pressure can be managed and underway, possibly with consideration of midodrine. With noted mild bradycardia as well, will try to cut down on metoprolol. Noted history of paroxysmal atrial fibrillation, monitor telemetry for any tachycardia. 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 Status: Acute (3) Chronic cystitis: Continue amoxicillin. Tamsulosin. Follow-up with urology. Status: Acute (4) Incomplete bladder emptying: Continue tamsulosin Status: Acute (5) Pulmonary hypertension: Follow-up with pulmonology. Consider home O2 eval prior to discharge. Status: Acute (6) HEMANTH (acute kidney injury): Appears to be taking NSAIDs in the form of naproxen. Discontinue. Possibly prerenal secondary to hypotension. She does state that she has been eating and drinking well, hydrating with electrolyte solution. Hold Lasix for now. Received fluid challenge. Reassess renal function. Status: Acute (7) Bradycardia: Noted mild sinus bradycardia, in the setting of severe orthostasis, severe fatigability on exertion, reduce metoprolol dose as above. With history of paroxysmal atrial fibrillation, monitor for any tachycardia. Status: Acute Plan History of urinary bladder lesions: Status post ablation, on follow-up with urology states was reexamined with finding of scar tissue, no recurrence of suspicious lesions. Attestations Medical Necessity Statement*: Place in observation for additional assessment and management of right side chest pain, severe orthostatic hypotension, falls. Coding Level of Care Code Acute Perioperative Assistant for Juan Antoniog Godwind Diagnoses Chest pain R07.9 Orthostatic hypotension I95.1 Chronic cystitis N30.20 Incomplete bladder emptying R33.9 Pulmonary hypertension I27.20 HEMANTH (acute kidney injury) N17.9 Bradycardia R00.1
[2021-11-20 15:37] LABS: D Dimer 2.87 ug/mIFEU (0-0.59)
[2021-11-20 15:59] LABS: Troponin 5 6HR 11.84 ng/L (0-10)
[2021-11-20 16:00] LABS: Troponin 5 6HR Delta -7.16 ng/L (0-12)
--- NOTE | 2021-11-20 17:06 | USCV_ITS ---
Destiny Quintana Age: 76 Gender: F : 1945 Exam Date: 11/20/2021 18:32 Ordering Phys: Santino Olivares MD Technologist: LEIGH ANN Exam Location: [facility] [place] Indication: CHEST PAIN BP: 115 / 74 HR: 56 Rhythm: Sinus Technical Quality: Adequate MEASUREMENTS (Male / Female) Normal Values 2D ECHO LV Diastolic Diameter PLAX 4.4 cm 4.2 - 5.9 / 3.9 - 5.3 cm LV Systolic Diameter PLAX 2.6 cm IVS Diastolic Thickness 1.3 cm 0.6 - 1.0 / 0.6 - 0.9 cm IVS Systolic Thickness 1.9 cm LVPW Diastolic Thickness 1.1 cm 0.6 - 1.0 / 0.6 - 0.9 cm LVPW Systolic Thickness 1.8 cm LVOT Diameter 2.0 cm LV Ejection Fraction 2D Teich 69.9 % LV Ejection Fraction MOD 2C 78.3 % LV Ejection Fraction 2C AL 78.6 % LA Diameter 3.0 cm LA Width 2.8 cm LA Height 4.5 cm RA Width 3.3 cm RA Height 4.8 cm Aorta at Sinotubular Diameter 2.7 cm IVC Diameter 1.6 cm M-MODE Aortic Annulus Diameter 2.5 cm LA Ao Ratio MM 1.1 MV E Point Septal Separation 0.3 cm DOPPLER AV Peak Velocity 147.0 cm/s LVOT Peak Velocity 131.0 cm/s AV Area Cont Eq vti 2.7 cm squared AV Area Cont Eq pk 2.8 cm squared MV Peak Velocity 126.0 cm/s MV Area PHT 3.9 cm squared Mitral E to A Ratio 1.7 MV E' Velocity 63.0 cm/s Mitral E to MV E' Ratio 11.1 Mitral E to LV E' Lateral Ratio 13.2 Mitral E to LV E' Septal Ratio 9.6 TR Peak Velocity 291.9 cm/s TR Peak Gradient 34.1 mmHg TR Mean Velocity 247.5 cm/s TR Mean Gradient 25.2 mmHg TR Velocity Time Integral 102.1 cm TV Peak E Velocity 50.0 cm/s Right Atrial Pressure 3.0 mmHg Pulmonary Artery Systolic Pressu 37.1 mmHg PV Peak Velocity 89.0 cm/s RV Acceleration Time 0.1 s RV Ejection Time 0.4 s RV AcT/ET 0.2 FINDINGS Left Ventricle Normal left ventricular size, systolic function and wall thickness, with no regional wall motion abnormalities. Grade II/IV diastolic dysfunction, moderately elevated filling pressures. Left ventricular ejection fraction is estimated at 65 %. Right Ventricle Normal right ventricular size and systolic function. Mild pulmonary hypertension, RVSP 37.1 mmHg. Right Atrium The right atrium is normal in size. Left Atrium The left atrium is normal in size. Mitral Valve Structurally normal mitral valve without significant stenosis or prolapse. There is no mitral regurgitation. Aortic Valve Structurally normal trileaflet aortic valve. Mild aortic valve regurgitation. No aortic valve stenosis. Tricuspid Valve Structurally normal tricuspid valve. Mild tricuspid valve regurgitation. Pulmonic Valve Pulmonic valve not well visualized. Pericardium Normal pericardium without effusion. Aorta Normal ascending aorta dimension. IVC The inferior vena cava pulmonary and hepatic veins appear normal. CONCLUSIONS Normal left ventricular size, systolic function and wall thickness, with no regional wall motion abnormalities. Grade II/IV diastolic dysfunction, moderately elevated filling pressures. Left ventricular ejection fraction is estimated at 65 %. Normal right ventricular size and systolic function. Mild pulmonary hypertension, RVSP 37.1 mmHg. Structurally normal trileaflet aortic valve. Mild aortic valve regurgitation. No aortic valve stenosis. Dr. Dallas Pino MD (Electronically Signed) Final Date: 21 November 2021 08:35 S
[2021-11-20] MEDS: tamsulosin 0.4 mg Capsule PO (19:18)
[2021-11-20] MEDS: amoxicillin 500 mg Capsule PO (19:18)
--- NOTE | 2021-11-20 23:55 | PC.NURSE ---
i reported low pulse 56 to nurse
[2021-11-21] VITALS (11 sets, daily range): BP systolic 66–153; BP diastolic 41–84; PULSE 50–86; RESP 17–18; TEMP 36.6–36.8; O2SAT 93–100
--- NOTE | 2021-11-21 05:25 | PC.NURSE ---
i reported low pulse 56 to nurse
[2021-11-21 05:57] LABS: Basophils % 0.4 %; Eosinophils # 0.3 10^3/uL (0.0-0.8); Eosinophils % 4.5 %; Hematocrit 39.5 % (37.0-47.0); Hemoglobin 12.4 g/dL (11.5-15.3); Lymphocytes % 14.5 %; Mean Corpuscular HGB Conc 31.4 g/dL (30.0-36.0); Mean Corpuscular Hemoglobin 29.5 pg (28.0-34.0); Mean Corpuscular Volume 93.8 fl (81-99); Mean Platelet Volume 13.3 fL (7.4-10.4); Monocytes # 0.4 10^3/uL (0.2-0.9); Monocytes % 6.4 %; Neutrophils # 4.94 10^3/uL (1.8-7.7); Neutrophils % 73.9 %; Nucleated Red Blood Cells % 0 %; Platelet Count 166 10^3/cmm (130-400); Red Blood Count 4.21 10^6/uL (4.1-5.3); Red Cell Distribution Width 15.1 % (12.1-15.1); White Blood Count 6.7 10^3/uL (4.0-10.0)
[2021-11-21 06:23] LABS: Alanine Aminotransferase 16 U/L (0-33); Albumin Level 3.8 g/dL (3.5-5.2); Alkaline Phosphatase 83 IU/L (35-105); Aspartate Amino Transferase 23 U/L (0-32); Blood Urea Nitrogen 19 mg/dL (8-23); Calcium 9.1 mg/dL (8.5-10.5); Carbon Dioxide 26 mmol/L (22-29); Chloride 108 mmol/L (98-107); Globulin 2.7 g/dL (1.3-4.6); Glucose 96 mg/dL (65-115); Osmolality Calculated 302 mOsm/kg (285-295); Sodium 145 mmol/L (136-145); Total Bilirubin 0.3 mg/dL (0.15-1.2); Total Protein 6.5 g/dL (6.6-8.7)
[2021-11-21 06:25] LABS: Anion Gap 15.8 (5-19); Potassium 4.8 mmol/L (3.5-5.1)
[2021-11-21 06:46] LABS: Slide Review Slide Review Perform
--- NOTE | 2021-11-21 07:00 | ECG_ITS ---
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 Interpretive Statements NAME OF STUDY: LEXISCAN SESTAMIBI STRESS TEST INDICATION: [Chest Pain] Procedure: At the baseline, the blood pressure was 131/90 mmHg with a heart rate of 67 bpm. The electrocardiogram showed normal sinus bradycardia, normal axis with normal ST and T's. The Lexiscan was infused over a period of 20 seconds. A total of 0.4 mg of Lexiscan was infused. The stress phase was continued for a total of 5 minutes. Heart rate was at the end of stress phase was 95 bpm and a blood pressure of 156/110mmHg. The EKG at the peak infusion revealed since normal sinus rhythm with no significant ST-T wave changes. Sestamibi was injected 20 seconds after the Lexiscan infusion. Blood pressure at the end of recovery phase was 90/78mmHg with a heart rate of 89 bpm. Conclusion: 1. Normal EKG response to Lexiscan infusion 2. No Lexiscan induced chest pain or cardiac arrhythmia. 3. Normal blood pressure and heart rate response. 4. Sestamibi/sestamibi perfusion scan pending; see separate report. Electronically Signed On 12-09-2021 0:04:24 CDT by Ren Baldwin M.D. [id number]
[2021-11-21] MEDS: regadenoson 0.4 Mg/5 ml Syringe IVP (08:33)
[2021-11-21] MEDS: amoxicillin 500 mg Capsule PO ×2 (09:20→18:40)
[2021-11-21] MEDS: tamsulosin 0.4 mg Capsule PO (09:21)
[2021-11-21] MEDS: metoprolol succinate ER (24 HR) 25 mg Tablet 12.5 MG PO (09:21)
--- NOTE | 2021-11-21 10:25 | PC.CHAP ---
Pastoral Care Encounter/Spiritual Assessment Type of Contact [] Declined helminthologist visit [] Patient/Family/Request visit [] Outpatient visit [] Follow-up visit [] Physician referral [] Code/Alert [x] Routine visit [] Staff referral [] Actively dying [] Patient sleeping [] Family support [] [] Out of room [] Palliative care [] [x] Receiving care in room [] Pre-surgical visit [] Trauma [x] Long length of stay [] ICU visit [] Other: Relational/Emotional Strength [] Patient feels connected with others/family/visitors/staff [x] Distress [] Loneliness/isolation [] Abandonment Spirituality of Patient [x] Person of Joyce [] Attends Caodaism of their Joyce [] Believes in Prayer [] Reads Bible or Rastafari materials [] There are Spiritual issues to be addressed Microstrategy Developer Interventions [] Prayer [] Active listening [] Non-anxious presence [x] Spiritual/emotional support [] Crisis/trauma care [] Spiritual counseling [] Bereavement support [] Provided bereavement packet [] Provided Bible/devotional materials [] Provided toy/stuffed animal, coloring book to patient or family member [] Provided Communion [] Anointing/[place] [] Salvation [] Completed spiritual assessment [] Other: Impact on Illness or Injury [] Angry [] Fearful [x] Anxious [] Often cries [] Exhaustion [x] Unable to work [] Unable to attend yarsanism [] Unable to walk/stand [] Unable to read [] Unable to drive [] Unable to eat/drink [] Unable to sleep [] Unable to be with family [] Patient intubated [] Other: Summary under stress brandin doesn't know about her health Time spent with patient 10 mins
--- NOTE | 2021-11-21 14:34 | CT_ITS ---
WS: [id number] CTA OF THE CHEST WITH PULMONARY EMBOLISM PROTOCOL TECHNIQUE: High-resolution contrast enhanced CTA of the chest with coronal and sagittal reformatted i mages with pulmonary embolism protocol. MIP images are also reviewed. CLINICAL INFORMATION: Abnormal ddimer, hypotension, R side chest painassess for PE COMPARISON: None. DLP: 193.[address] scans at [facility] use at least one of these dose optimization techniques: automated e xposure control; mA and/or kV adjustment per patient size (includes targeted exams where dose is matc hed to clinical indication); or iterative reconstruction. FINDINGS: Proximal main pulmonary arteries are normal. Normal segmental and subsegmental pulmonary arteries. No evidence of pulmonary embolus. Normal caliber thoracic aorta. Moderate aortic calcification. Tiny pe ricardial effusion. Aneurysmal ascending thoracic aorta measuring 3.7 cm. Mild chronic emphysematous changes. No acute pulmonary infiltrates. Slight bibasilar atelectasis. Biapical fibrosis. No mediasti nal or hilar lymphadenopathy. No axillary lymphadenopathy. Noncalcified nodule RIGHT upper lobe near the lung apex measuring 6 mm. This appears stable since June 17, 2019 Adrenal glands are normal. Normal GE junction. Mild thoracic kyphosis. Mild chronic compression super ior endplate L1. CT/CT angio chest PE protcl [id number] IMPRESSION: 1. Proximal main pulmonary arteries are normal. No evidence of pulmonary embol us. 2. Slight bibasilar atelectasis. No focal pneumonia or pleural fluid. 3. Cardiomegaly. Tiny pericardial effusion. 4. Aneurysmal ascending thoracic aorta measuring 3.7 CM. 5. Noncalcified nodule RIGHT upper lobe near the lung apex measuring 6 mm. Thi s appears stable since June 17, 2019
[2021-11-21] MEDS: iohexol 350 mg/mL 100 mL Btl IV (15:10)
--- NOTE | 2021-11-21 15:37 | P.PN_ITS ---
Subjective Subjective: Today she is feeling a bit better, however, she did experience some chest discomfort on the right side at the end of the stress test. She denies other new symptoms. Later on in the morning noted on orthostatic assessment still very orthostatic. Discussed with her and her family in detail orthostatic precautions and to lie down immediately in case she feels lightheaded or like she is about to faint to prevent falling and injury. We additionally discussed elevated D-dimer, and discussed risks and benefits of a number of modalities for assessment of possibility of PE including CTA. Vitals/I&O/Wt Last Vital Signs Temp 97.9 F 11/21/21 08:00 Pulse 60 11/21/21 10:05 Resp 18 11/21/21 08:00 BP 130/74 11/21/21 10:05 Pulse Ox 100 11/21/21 08:00 O2 Del Method 11/21/21 08:00 11/21/21 11/21/21 11/21/21 06:59 14:59 22:59 Intake Total 0 / 1000 300 / 300 Balance 0 / 1000 300 / 300 Weight last 48 hrs Weight 66.814 kg Weight 66.134 kg Weight 65.771 kg Physical Exam Narrative: Accompanied by family at bedside. Const: COMMON NORMALS: patient oriented x3 and alert GENERAL APPEARANCE: cooperative ORIENTATION/CONSCIOUSNESS: Yes awake HENMT: COMMON NORMALS: oropharynx normal Neck/C-Spine: COMMON NORMALS: no JVD Resp: COMMON NORMALS: normal respiratory effort and clear to auscultation bilaterally AUSCULTATION: clear to auscultation bilaterally Cardio: COMMON NORMALS: no JVD, regular rhythm, S1 normal heart sound present, S2 normal heart sound present and No murmurs present (Cardio) RATE: bradycardic RHYTHM: regular rhythm HEART SOUNDS: S1 normal heart sound present and S2 normal heart sound present GI: COMMON NORMALS: Normal to inspection, nondistended, normoactive bowel sounds present, Soft to palpation and non-tender PALPATION: Yes Soft to palpation Extremity: COMMON NORMALS: no joint enlargement and no pedal edema Neuro: COMMON NORMALS: patient oriented x3 and moves all extremities SENSORIUM/ORIENTATION: Yes alert Skin: COMMON NORMALS: no rashes or lesions noted GENERAL SKIN EXAM: no rashes or lesions noted Data : 11/21/21 05:12 11/21/21 05:12 A&P Assessment and plan (1) Orthostatic hypotension: Discussed with her strict orthostatic precautions. Lasix has been on hold. Stress test not entirely back yet but preliminarily without ischemia. Echocardiogram with normal ejection fraction. Grade 2 diastolic dysfunction. Moderately elevated filling pressures. Mild pulmonary hypertension, RVSP 37.1. Mild AVR. D-dimer abnormal, discussed with her additional assessment to exclude PE although probably less likely. Discussed with her consideration of midodrine, given still persistently orthostatic will initiate 5 mg 3 times daily for now. Severe orthostatic hypotension still present this morning, blood pressure decreasing from 130 systolic lying to 71 systolic standing. She is on tamsulosin due to incomplete bladder emptying and recurrent UTIs, discussed with her risks of orthostasis with this medication. She corrects that she takes tamsulosin once a day, not twice a day. Given severity of orthostasis, needs additional optimization in the hospital. With noted mild bradycardia as well, will try to cut down on metoprolol. Noted history of paroxysmal atrial fibrillation, monitor telemetry for any tachycardia. Consider automobile or truck rental dispatcher at discharge. Status: Acute (2) Chest pain: Elevated D-dimer with significant orthostatic hypotension, with exertional intolerance. Discussed with her additional assessment as above. CTA requested. Stress test results pending, preliminary negative for ischemia. Status: Acute (3) Chronic cystitis: Continue amoxicillin. Tamsulosin. Follow-up with urology. Status: Acute (4) Incomplete bladder emptying: Continue tamsulosin Status: Acute (5) Pulmonary hypertension: Follow-up with pulmonology. Consider home O2 eval prior to discharge. Status: Acute (6) HEMANTH (acute kidney injury): Improved. Appears to be taking NSAIDs in the form of naproxen. Discontinue. Possibly prerenal secondary to hypotension. She does state that she has been eating and drinking well, hydrating with electrolyte solution. Hold Lasix for now. Received fluid challenge. Reassess renal function. Status: Acute (7) Bradycardia: Noted mild sinus bradycardia, in the setting of severe orthostasis, severe fatigability on exertion, reduce metoprolol dose as above. With history of paroxysmal atrial fibrillation, monitor for any tachycardia. Status: Acute Plan History of urinary bladder lesions: Status post ablation, on follow-up with urology states was reexamined with finding of scar tissue, no recurrence of suspicious lesions. Attestations Medical Necessity Statement*: Continue hospitalization for additional assessment of severe orthostatic hypotension, exertional intolerance and intermittent right side chest discomfort. Coding Level of Care Code Acute Sheet Metal Installer for Chg Fwd Diagnoses Orthostatic hypotension I95.1 Chest pain R07.9 Chronic cystitis N30.20 Incomplete bladder emptying R33.9 Pulmonary hypertension I27.20 HEMANTH (acute kidney injury) N17.9 Bradycardia R00.1
[2021-11-21] MEDS: midodrine 5 mg TABLET PO ×2 (15:48→20:05)
--- NOTE | 2021-11-21 17:06 | NMCV_ITS ---
NM anderson perf SPECT r/s* [id number] Destiny Quintana Age: 76 Gender: F : 1945 Exam Date: 11/21/2021 17:06 Ordering Phys: Santino Olivares MD Technologist: YESICA Benitez Exam Location: [facility] Indications: Chest pain STRESS TEST Please see separate stress test report in [facility] for full findings IMAGE PROTOCOL Rest/Stress 1 Lexiscan Day Radiopharmaceutical Dose (mCi) Administration Site Administered by Rest: Tc-99m 10.8 IV YESICA Benitez Sestamibi Stress:Tc-99m 32.8 IV YESICA Benitez Sestamibi Rest: 21-Nov-2021 60 Discovery 630 Stress: 21-Nov-2021 45 Discovery 630 0.4mg Lexiscan. Images obtained in supine and prone position. SPECT RESULTS Technical Quality: Good Raw Data Analysis: Breast attenuation Image Corrections: No attenuation or motion correction applied Summed Stress Score: 0 Summed Rest Score: 0 Summed Difference Score: 0 PERFUSION FINDINGS SPECT images demonstrate homogeneous tracer distribution throughout the myocardium. FUNCTIONAL RESULTS (calculated via Gated SPECT) Stress Image LV EF (%): 84 Stress EDV (mL):69 TID: 1.17 Stress ESV (mL):11 FUNCTIONAL FINDINGS: There is normal left ventricular systolic function. IMPRESSIONS 1. Normal myocardial perfusion imaging with no evidence of ischemia 2. LV systolic function is normal Ren Baldwin MD (Electronically Signed) Final Date: 21 November 2021 08:42 S
[2021-11-22] VITALS (11 sets, daily range): BP systolic 85–134; BP diastolic 58–84; PULSE 46–66; RESP 12–18; TEMP 36.6–37; O2SAT 94–99
--- NOTE | 2021-11-22 00:14 | PC.NURSE ---
i reported low pulse 49 to nurse
[2021-11-22 02:19] LABS: Basophils % 0.5 %; Eosinophils # 0.3 10^3/uL (0.0-0.8); Eosinophils % 4.2 %; Hematocrit 37.6 % (37.0-47.0); Hemoglobin 11.6 g/dL (11.5-15.3); Lymphocytes # 0.9 10^3/uL (0.8-4.8); Lymphocytes % 15.4 %; Mean Corpuscular HGB Conc 30.9 g/dL (30.0-36.0); Mean Corpuscular Hemoglobin 29.4 pg (28.0-34.0); Mean Corpuscular Volume 95.2 fl (81-99); Mean Platelet Volume 12.8 fL (7.4-10.4); Monocytes # 0.5 10^3/uL (0.2-0.9); Monocytes % 7.7 %; Neutrophils # 4.29 10^3/uL (1.8-7.7); Neutrophils % 71.9 %; Nucleated Red Blood Cells % 0 %; Platelet Count 157 10^3/cmm (130-400); Red Blood Count 3.95 10^6/uL (4.1-5.3); Red Cell Distribution Width 14.9 % (12.1-15.1)
[2021-11-22 02:44] LABS: Alanine Aminotransferase 13 U/L (0-33); Albumin Level 3.6 g/dL (3.5-5.2); Alkaline Phosphatase 68 IU/L (35-105); Anion Gap 12.1 (5-19); Aspartate Amino Transferase 16 U/L (0-32); Blood Urea Nitrogen 20 mg/dL (8-23); Calcium 8.9 mg/dL (8.5-10.5); Carbon Dioxide 24 mmol/L (22-29); Chloride 109 mmol/L (98-107); Globulin 2.2 g/dL (1.3-4.6); Glucose 93 mg/dL (65-115); Osmolality Calculated 294 mOsm/kg (285-295); Potassium 4.1 mmol/L (3.5-5.1); Sodium 141 mmol/L (136-145); Total Bilirubin 0.3 mg/dL (0.15-1.2); Total Protein 5.8 g/dL (6.6-8.7)
--- NOTE | 2021-11-22 04:29 | PC.NURSE ---
i reported low pulse 56 to nurse
[2021-11-22] MEDS: amoxicillin 500 mg Capsule PO ×2 (09:30→18:10)
[2021-11-22] MEDS: aspirin 325 mg Tablet PO (09:30)
[2021-11-22] MEDS: midodrine 5 mg TABLET 10 MG PO ×3 (09:31→20:21)
[2021-11-22] MEDS: metoprolol succinate ER (24 HR) 25 mg Tablet 12.5 MG PO (09:36)
--- NOTE | 2021-11-22 13:11 | ECG_ITS ---
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 Measurements Intervals [place] Rate: 58 P: 69 OK: 152 QRS: -34 QRSD: 77 T: 23 QT: 397 QTc: 393 Interpretive Statements SINUS BRADYCARDIA LEFT AXIS DEVIATION [QRS AXIS < -30] LOW QRS VOLTAGE IN PRECORDIAL LEADS [QRS DEFLECTION < 1.0 mV IN CHEST LEADS] POSSIBLE ANTERIOR MYOCARDIAL INFARCTION , PROBABLY OLD [30 ms Q WAVE IN V3/V4, OR R < 0.2 mV IN V4] Compared to ECG 11/20/2021 14:43:55 Myocardial infarct finding now present Electronically Signed On 11-22-2021 13:56:10 CDT by Sonam Williamson M.D. [id number]
--- NOTE | 2021-11-22 18:17 | PM.PN ---
Subjective Subjective: Subjectively she feels better. She denies feeling lightheaded. Her orthostatics were still quite severe last night. Midodrine dose was increased to 10 mg 3 times daily. Blood pressures slightly better this morning. This morning also noted abnormal rhythm on rhythm strip. Vitals/I&O/Wt Last Vital Signs Temp 98.6 F 11/22/21 04:00 Pulse 51 L 11/22/21 16:00 Resp 12 11/22/21 16:00 BP 134/74 11/22/21 16:00 Pulse Ox 98 11/22/21 16:00 O2 Del Method 11/22/21 16:00 O2 Flow Rate 96 11/21/21 12:00 Weight last 48 hrs Weight 67.086 kg Weight 66.814 kg Physical Exam Narrative: Accompanied by family at bedside. Const: COMMON NORMALS: patient oriented x3 and alert GENERAL APPEARANCE: cooperative ORIENTATION/CONSCIOUSNESS: Yes awake HENMT: COMMON NORMALS: oropharynx normal Neck/C-Spine: COMMON NORMALS: no JVD Resp: COMMON NORMALS: normal respiratory effort and clear to auscultation bilaterally AUSCULTATION: clear to auscultation bilaterally Cardio: COMMON NORMALS: no JVD, regular rhythm, S1 normal heart sound present, S2 normal heart sound present and No murmurs present (Cardio) RATE: bradycardic RHYTHM: regular rhythm HEART SOUNDS: S1 normal heart sound present and S2 normal heart sound present GI: COMMON NORMALS: Normal to inspection, nondistended, normoactive bowel sounds present, Soft to palpation and non-tender PALPATION: Yes Soft to palpation Extremity: COMMON NORMALS: no joint enlargement and no pedal edema Neuro: COMMON NORMALS: patient oriented x3 and moves all extremities SENSORIUM/ORIENTATION: Yes alert Skin: COMMON NORMALS: no rashes or lesions noted GENERAL SKIN EXAM: no rashes or lesions noted Data : 11/22/21 02:05 11/22/21 02:05 A&P Assessment and plan (1) Orthostatic hypotension: Severe orthostatic hypotension persistent last night. Increased midodrine dose to 10 mg 3 times daily. Today also noted abnormal rhythm on rhythm strip, appears to have an additional supraventricular rhythm with parol set of different appearing P waves which are nonconductive. Still bradycardia in upper 40s, lower 50s. 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 Bradycardia with her normal ejection fraction not likely to be contributing to orthostasis. Will not further decrease metoprolol. In case still not improving with increased dose midodrine, may need to consider additional options as discussed with her, although does may have higher potential for adverse effects. Discussed with her strict orthostatic precautions. Lasix has been on hold. Stress test not entirely back yet but preliminarily without ischemia. Echocardiogram with normal ejection fraction. Grade 2 diastolic dysfunction. Moderately elevated filling pressures. Mild pulmonary hypertension, RVSP 37.1. Mild AVR. D-dimer abnormal, discussed with her additional assessment to exclude PE although probably less likely. Discussed with her consideration of midodrine, given still persistently orthostatic will initiate 5 mg 3 times daily for now. She is on tamsulosin due to incomplete bladder emptying and recurrent UTIs, discussed with her risks of orthostasis with this medication. She corrects that she takes tamsulosin once a day, not twice a day. Given severity of orthostasis, needs additional optimization in the hospital. With noted mild bradycardia as well, will try to cut down on metoprolol. Noted history of paroxysmal atrial fibrillation, monitor telemetry for any tachycardia. Consider case liner at discharge. Status: Acute (2) Chest pain: Elevated D-dimer with significant orthostatic hypotension, with exertional intolerance. Discussed with her additional assessment as above. CTA negative for PE. Incidentally noted pulmonary nodule right upper lobe, 6 mm. Stable since 2019. Stress test results pending, preliminary negative for ischemia. Status: Acute (3) Chronic cystitis: Continue amoxicillin. Tamsulosin. Follow-up with urology. Status: Acute (4) Incomplete bladder emptying: Continue tamsulosin Status: Acute (5) Pulmonary hypertension: Follow-up with pulmonology. Consider home O2 eval prior to discharge. Status: Acute (6) HEMANTH (acute kidney injury): Improved. Appears to be taking NSAIDs in the form of naproxen. Discontinue. Possibly prerenal secondary to hypotension. She does state that she has been eating and drinking well, hydrating with electrolyte solution. Hold Lasix for now. Received fluid challenge. Reassess renal function. Status: Acute (7) Bradycardia: Noted mild sinus bradycardia, in the setting of severe orthostasis, severe fatigability on exertion, reduce metoprolol dose as above. With history of paroxysmal atrial fibrillation, monitor for any tachycardia. Status: Acute (8) Lung nodule: 6 mm right upper lobe nodule stable since 2019. Status: Acute Plan History of urinary bladder lesions: Status post ablation, on follow-up with urology states was reexamined with finding of scar tissue, no recurrence of suspicious lesions. Attestations Medical Necessity Statement*: Continue observation for optimization of severe orthostatic hypotension. Coding Level of Care Code Acute Clinical Informatics Director for Chg Fwd Exam Comprehensive Diagnoses Orthostatic hypotension I95.1 Chest pain R07.9 Chronic cystitis N30.20 Incomplete bladder emptying R33.9 Pulmonary hypertension I27.20 HEMANTH (acute kidney injury) N17.9 Bradycardia R00.1 Lung nodule R91.1
--- NOTE | 2021-11-22 19:29 | PC.NURSE ---
BP BP 85/58 per automatic. Rechecked manually and BP 88/60. Pt care nurse notified
[2021-11-22] MEDS: tamsulosin 0.4 mg Capsule PO (20:22)
[2021-11-23] VITALS (58 sets, daily range): BP systolic 71–147; BP diastolic 50–79; PULSE 45–103; RESP 14–20; TEMP 36.3–37.2; O2SAT 91–99
[2021-11-23 04:21] LABS: Basophils % 0.5 %; Eosinophils # 0.3 10^3/uL (0.0-0.8); Eosinophils % 5.9 %; Hematocrit 38.3 % (37.0-47.0); Lymphocytes % 18.1 %; Mean Corpuscular HGB Conc 31.3 g/dL (30.0-36.0); Mean Corpuscular Hemoglobin 29.8 pg (28.0-34.0); Mean Platelet Volume 12.6 fL (7.4-10.4); Monocytes # 0.4 10^3/uL (0.2-0.9); Monocytes % 7.7 %; Neutrophils # 3.69 10^3/uL (1.8-7.7); Neutrophils % 67.4 %; Nucleated Red Blood Cells % 0 %; Platelet Count 160 10^3/cmm (130-400); Red Blood Count 4.03 10^6/uL (4.1-5.3); Red Cell Distribution Width 15.2 % (12.1-15.1); White Blood Count 5.5 10^3/uL (4.0-10.0)
[2021-11-23 04:47] LABS: Alanine Aminotransferase 17 U/L (0-33); Albumin Level 3.7 g/dL (3.5-5.2); Alkaline Phosphatase 87 IU/L (35-105); Anion Gap 14.4 (5-19); Aspartate Amino Transferase 18 U/L (0-32); Blood Urea Nitrogen 21 mg/dL (8-23); Calcium 9.3 mg/dL (8.5-10.5); Carbon Dioxide 26 mmol/L (22-29); Chloride 109 mmol/L (98-107); Globulin 2.5 g/dL (1.3-4.6); Glucose 109 mg/dL (65-115); Osmolality Calculated 304 mOsm/kg (285-295); Potassium 4.4 mmol/L (3.5-5.1); Sodium 145 mmol/L (136-145); Total Bilirubin 0.3 mg/dL (0.15-1.2); Total Protein 6.2 g/dL (6.6-8.7)
[2021-11-23] MEDS: metoprolol succinate ER (24 HR) 25 mg Tablet 12.5 MG PO (09:31)
[2021-11-23] MEDS: amoxicillin 500 mg Capsule PO ×2 (09:31→17:55)
[2021-11-23] MEDS: midodrine 5 mg TABLET 10 MG PO ×3 (09:31→20:36)
--- NOTE | 2021-11-23 12:27 | CTR_ITS ---
PROCEDURE INFORMATION: Exam: CT Left Lower Extremity Without Contrast, Hip Exam date and time: 11/23/2021 4:24 PM Age: 76 years old Clinical indication: Pain and injury or trauma; Fall; Blunt trauma; Hip; Left; Additional info: Pain, recent falls TECHNIQUE: Imaging protocol: CT of the Left lower extremity without contrast was performed. Exam focused on the hip. Axial, coronal and sagittal reformatted images were created and reviewed. Radiation optimization: All CT scans at this facility use at least one of these dose optimization techniques: automated exposure control; mA and/or kV adjustment per patient size (includes targeted exams where dose is matched to clinical indication); or iterative reconstruction. COMPARISON: MR hip LT wo con* [id number] 01/02/2021 1:30 PM RADIATION DOSE METRICS: Total DLP (mGy-cm): 274.48 FINDINGS: Bones/joints: Osteopenia. No CT evidence of acute fracture or dislocation. Alignment anatomic. Moderate to severe left hip joint osteoarthrosis. Degenerative changes of the left sacroiliac joint and pubic symphysis. Chondrocalcinosis of the pubic symphysis. No erosive or destructive change. No lytic or blastic lesion. Trace left hip joint effusion. Soft tissues: Grossly unremarkable. CT/CT hip LT wo con* [id number] IMPRESSION: 1. No CT evidence of acute fracture or dislocation. If the patient's clinical symptoms persist or worsen, MRI would provide a more sensitive evaluation for occult fracture. 2. Additional findings, as above.
[2021-11-23] MEDS: fludrocortisone 0.1 mg Tablet PO (15:56)
--- NOTE | 2021-11-23 18:55 | PM.PN ---
Subjective Subjective: Soft blood pressure with positive orthostatics. Noted to be unsteady, requiring some standby assistance getting up from bed. Today she also had experienced pain in the left leg radiating down from the left groin. She had previously fallen repeatedly on the left side. States that joint was imaged in urgent care with an x-ray. Vitals/I&O/Wt Last Vital Signs Temp 97.8 F 11/23/21 15:25 Pulse 59 L 11/23/21 15:25 Resp 16 11/23/21 15:25 BP 103/62 11/23/21 15:25 Pulse Ox 96 11/23/21 15:25 O2 Del Method 11/23/21 15:25 O2 Flow Rate 96 11/21/21 12:00 11/23/21 11/23/21 11/23/21 06:59 14:59 22:59 Intake Total 120 / 240 370 / 370 360 / 730 Balance 120 / 240 370 / 370 360 / 730 Weight last 48 hrs Weight 66.678 kg Weight 67.086 kg Physical Exam Const: COMMON NORMALS: patient oriented x3 and alert GENERAL APPEARANCE: cooperative ORIENTATION/CONSCIOUSNESS: Yes awake HENMT: COMMON NORMALS: oropharynx normal Neck/C-Spine: COMMON NORMALS: no JVD Resp: COMMON NORMALS: normal respiratory effort and clear to auscultation bilaterally AUSCULTATION: clear to auscultation bilaterally Cardio: COMMON NORMALS: no JVD, regular rhythm, S1 normal heart sound present, S2 normal heart sound present and No murmurs present (Cardio) RATE: bradycardic RHYTHM: regular rhythm HEART SOUNDS: S1 normal heart sound present and S2 normal heart sound present GI: COMMON NORMALS: Normal to inspection, nondistended, normoactive bowel sounds present, Soft to palpation and non-tender PALPATION: Yes Soft to palpation Extremity: COMMON NORMALS: no joint enlargement and no pedal edema Neuro: COMMON NORMALS: patient oriented x3 and moves all extremities SENSORIUM/ORIENTATION: Yes alert Skin: COMMON NORMALS: no rashes or lesions noted GENERAL SKIN EXAM: no rashes or lesions noted Data : 11/23/21 04:05 11/23/21 04:05 A&P Assessment and plan (1) Orthostatic hypotension: Some improvement but persistent orthostasis, needing standby assist getting out of bed today, discussed with her starting fludrocortisone. Start 0.1 mg daily. Severe orthostatic hypotension persistent last night. Increased midodrine dose to 10 mg 3 times daily. Today also noted abnormal rhythm on rhythm strip, appears to have an additional supraventricular rhythm with parol set of different appearing P waves which are nonconductive. Still bradycardia in upper 40s, lower 50s. 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 Bradycardia with her normal ejection fraction not likely to be contributing to orthostasis. Will not further decrease metoprolol. In case still not improving with increased dose midodrine, may need to consider additional options as discussed with her, although does may have higher potential for adverse effects. Discussed with her strict orthostatic precautions. Lasix has been on hold. Stress test not entirely back yet but preliminarily without ischemia. Echocardiogram with normal ejection fraction. Grade 2 diastolic dysfunction. Moderately elevated filling pressures. Mild pulmonary hypertension, RVSP 37.1. Mild AVR. D-dimer abnormal, discussed with her additional assessment to exclude PE although probably less likely. Discussed with her consideration of midodrine, given still persistently orthostatic will initiate 5 mg 3 times daily for now. She is on tamsulosin due to incomplete bladder emptying and recurrent UTIs, discussed with her risks of orthostasis with this medication. She corrects that she takes tamsulosin once a day, not twice a day. Given severity of orthostasis, needs additional optimization in the hospital. With noted mild bradycardia as well, will try to cut down on metoprolol. Noted history of paroxysmal atrial fibrillation, monitor telemetry for any tachycardia. Consider teletypesetter monitor at discharge. Status: Acute (2) Left hip pain: CT assessment of the left hip given she has had several falls on it recently and states it was previously imaged with an x-ray. Continue fall precautions. Status: Acute (3) Chest pain: Elevated D-dimer with significant orthostatic hypotension, with exertional intolerance. Discussed with her additional assessment as above. CTA negative for PE. Incidentally noted pulmonary nodule right upper lobe, 6 mm. Stable since 2019. Stress test results pending, preliminary negative for ischemia. Status: Acute (4) Chronic cystitis: Continue amoxicillin. Tamsulosin. Follow-up with urology. Status: Acute (5) Incomplete bladder emptying: Continue tamsulosin Status: Acute (6) Pulmonary hypertension: Follow-up with pulmonology. Consider home O2 eval prior to discharge. Status: Acute (7) HEMANTH (acute kidney injury): Improved. Appears to be taking NSAIDs in the form of naproxen. Discontinue. Possibly prerenal secondary to hypotension. She does state that she has been eating and drinking well, hydrating with electrolyte solution. Hold Lasix for now. Received fluid challenge. Reassess renal function. Status: Acute (8) Bradycardia: Noted mild sinus bradycardia, in the setting of severe orthostasis, severe fatigability on exertion, reduce metoprolol dose as above. With history of paroxysmal atrial fibrillation, monitor for any tachycardia. Status: Acute (9) Lung nodule: 6 mm right upper lobe nodule stable since 2019. Status: Acute Plan History of urinary bladder lesions: Status post ablation, on follow-up with urology states was reexamined with finding of scar tissue, no recurrence of suspicious lesions. Attestations Medical Necessity Statement*: Continue admission for optimization of severe orthostatic hypotension, gait instability due to orthostasis, with multiple recent falls. Coding Level of Care Code Acute Lead Mechanic for g Fwd Diagnoses Orthostatic hypotension I95.1 Left hip pain M25.552 Chest pain R07.9 Chronic cystitis N30.20 Incomplete bladder emptying R33.9 Pulmonary hypertension I27.20 HEMANTH (acute kidney injury) N17.9 Bradycardia R00.1 Lung nodule R91.1
--- NOTE | 2021-11-23 19:34 | PC.NURSE ---
Shift Note Frequent safety and comfort rounds continue. Orders and/or nursing care completed as indicated. Pt report of burning pain from left groin to left hip down to left leg this morning, and Dr notified. Dr Olivares wants to get orthostatic BP after morning midodrine, BP taken- notified Dr on the results. Received order to give 250 LR bolus. Patient monitored for response to intervention and treatment(s). Education provided includes new meds Florinef and midodrine as well. Patient and/or loss control representative verbalizes understanding. Will continue to monitor.
[2021-11-23] MEDS: tamsulosin 0.4 mg Capsule PO (20:36)
[2021-11-24] VITALS (13 sets, daily range): BP systolic 72–129; BP diastolic 43–73; PULSE 54–80; RESP 16–20; TEMP 36.6–37.2; O2SAT 94–98
[2021-11-24] MEDS: polyethylene glycol 3350 Pkt 17 gm PO (04:05)
[2021-11-24 05:59] LABS: Basophils % 0.5 %; Eosinophils # 0.3 10^3/uL (0.0-0.8); Eosinophils % 4.6 %; Hematocrit 36.8 % (37.0-47.0); Hemoglobin 11.7 g/dL (11.5-15.3); Lymphocytes # 0.8 10^3/uL (0.8-4.8); Lymphocytes % 12.3 %; Mean Corpuscular HGB Conc 31.8 g/dL (30.0-36.0); Mean Corpuscular Hemoglobin 29.8 pg (28.0-34.0); Mean Corpuscular Volume 93.6 fl (81-99); Mean Platelet Volume 12.7 fL (7.4-10.4); Monocytes # 0.5 10^3/uL (0.2-0.9); Monocytes % 8.4 %; Neutrophils # 4.67 10^3/uL (1.8-7.7); Neutrophils % 73.9 %; Nucleated Red Blood Cells % 0 %; Platelet Count 156 10^3/cmm (130-400); Red Blood Count 3.93 10^6/uL (4.1-5.3); White Blood Count 6.3 10^3/uL (4.0-10.0)
[2021-11-24 06:22] LABS: Blood Urea Nitrogen 20 mg/dL (8-23); Calcium 9.1 mg/dL (8.5-10.5); Carbon Dioxide 25 mmol/L (22-29); Chloride 109 mmol/L (98-107); Glucose 99 mg/dL (65-115); Osmolality Calculated 299 mOsm/kg (285-295); Sodium 143 mmol/L (136-145)
[2021-11-24] MEDS: fludrocortisone 0.1 mg Tablet PO (09:13)
[2021-11-24] MEDS: amoxicillin 500 mg Capsule PO ×2 (09:13→19:07)
[2021-11-24] MEDS: midodrine 5 mg TABLET 10 MG PO ×3 (09:13→20:29)
[2021-11-24] MEDS: metoprolol succinate ER (24 HR) 25 mg Tablet 12.5 MG PO (09:13)
[2021-11-24] MEDS: aspirin 325 mg Tablet PO (09:14)
--- NOTE | 2021-11-24 14:28 | PM.PN ---
Subjective Subjective: She is doing all right, however, blood pressures have remained on the low side, orthostatic, although gap has decreased somewhat. Still having pain in the left hip. Pain on hip flexion, internal rotation. Vitals/I&O/Wt Last Vital Signs Temp 99.0 F 11/24/21 12:00 Pulse 58 L 11/24/21 14:25 Resp 16 11/24/21 12:00 BP 93/53 11/24/21 14:25 Pulse Ox 97 11/24/21 12:00 O2 Del Method 11/24/21 12:00 O2 Flow Rate 96 11/21/21 12:00 11/23/21 11/24/21 11/24/21 22:59 06:59 14:59 Intake Total 360 / 730 200 / 930 120 / 120 Balance 360 / 730 200 / 930 120 / 120 Weight last 48 hrs Weight 67.903 kg Weight 66.678 kg Physical Exam Narrative: Accompanied by family at bedside. Const: COMMON NORMALS: patient oriented x3 and alert GENERAL APPEARANCE: cooperative ORIENTATION/CONSCIOUSNESS: Yes awake HENMT: COMMON NORMALS: oropharynx normal Neck/C-Spine: COMMON NORMALS: no JVD Resp: COMMON NORMALS: normal respiratory effort and clear to auscultation bilaterally AUSCULTATION: clear to auscultation bilaterally Cardio: COMMON NORMALS: no JVD, regular rhythm, S1 normal heart sound present, S2 normal heart sound present and No murmurs present (Cardio) RATE: bradycardic RHYTHM: regular rhythm HEART SOUNDS: S1 normal heart sound present and S2 normal heart sound present GI: COMMON NORMALS: Normal to inspection, nondistended, normoactive bowel sounds present, Soft to palpation and non-tender PALPATION: Yes Soft to palpation Extremity: COMMON NORMALS: no joint enlargement and no pedal edema OTHER: Left groin pain on hip flexion, internal rotation. Neuro: COMMON NORMALS: patient oriented x3 and moves all extremities SENSORIUM/ORIENTATION: Yes alert Skin: COMMON NORMALS: no rashes or lesions noted GENERAL SKIN EXAM: no rashes or lesions noted Data : 11/24/21 05:35 11/24/21 05:35 A&P Assessment and plan (1) Orthostatic hypotension: Some improvement in orthostatic gap, however, blood pressures still soft, still orthostatic. This afternoon BP 82/51. This morning orthostatics 91/52-72/43-73/46. Will add cortisol to prior labs. Increase fludrocortisone dose to 0.2 mg daily. Reassess orthostatics. Midodrine 10 mg 3 times daily. Discussed with her strict orthostatic precautions. Lasix has been on hold. Stress test not entirely back yet but preliminarily without ischemia. Echocardiogram with normal ejection fraction. Grade 2 diastolic dysfunction. Moderately elevated filling pressures. Mild pulmonary hypertension, RVSP 37.1. Mild AVR. D-dimer abnormal, discussed with her additional assessment to exclude PE although probably less likely. She is on tamsulosin due to incomplete bladder emptying and recurrent UTIs, discussed with her risks of orthostasis with this medication. Given severity of orthostasis, needs additional optimization in the hospital. With noted mild bradycardia as well, metoprolol dose was reduced to 12.5 mg, but would not discontinue entirely given bradycardia not likely contributing to orthostasis, and has had A. fib with RVR in the past. History of paroxysmal atrial fibrillation, monitor telemetry for any tachycardia. Consider vehicle monitor technician at discharge. Status: Acute (2) Left hip pain: CT without obvious fracture. She continues to have pain in the left hip, pain on flexion, internal rotation on exam. She does report a degree of chronic pain as well, and was previously assessed by orthopedics with recommendation for hip replacement. Pain currently appears to be worse and has had several falls since that hip in the recent past preceding hospitalization. We will additionally assess by MRI given persistent symptoms for occult fracture. Continue fall precautions. Status: Acute (3) Chest pain: Resolved. Elevated D-dimer with significant orthostatic hypotension, with exertional intolerance. Discussed with her additional assessment as above. CTA negative for PE. Incidentally noted pulmonary nodule right upper lobe, 6 mm. Stable since 2019. Stress test results pending, preliminary negative for ischemia. Status: Acute (4) Chronic cystitis: Continue amoxicillin. Tamsulosin. Follow-up with urology. Status: Acute (5) Incomplete bladder emptying: Continue tamsulosin Status: Acute (6) Pulmonary hypertension: Follow-up with pulmonology. Consider home O2 eval prior to discharge. Status: Acute (7) HEMANTH (acute kidney injury): Improved. Appears to be taking NSAIDs in the form of naproxen. Discontinue. Possibly prerenal secondary to hypotension. She does state that she has been eating and drinking well, hydrating with electrolyte solution. Hold Lasix for now. Received fluid challenge. Reassess renal function. Status: Acute (8) Bradycardia: Noted mild sinus bradycardia, in the setting of severe orthostasis, severe fatigability on exertion, reduce metoprolol dose as above. With history of paroxysmal atrial fibrillation, monitor for any tachycardia. Status: Acute (9) Lung nodule: 6 mm right upper lobe nodule stable since 2019. Status: Acute Plan 11/23 also noted abnormal rhythm on rhythm strip, appears to have an additional supraventricular rhythm with parol set of different appearing P waves which are nonconductive. Still bradycardia in upper 40s, lower 50s. 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 Bradycardia with her normal ejection fraction not likely to be contributing to orthostasis. Will not further decrease metoprolol. History of urinary bladder lesions: Status post ablation, on follow-up with urology states was reexamined with finding of scar tissue, no recurrence of suspicious lesions. Attestations Medical Necessity Statement*: Continue admission for optimization of severe orthostatic hypotension. Recently severe exertional intolerance, multiple falls. Coding Level of Care Code Acute Lobster Catcher for Chg Fwd Diagnoses Orthostatic hypotension I95.1 Left hip pain M25.552 Chest pain R07.9 Chronic cystitis N30.20 Incomplete bladder emptying R33.9 Pulmonary hypertension I27.20 HEMANTH (acute kidney injury) N17.9 Bradycardia R00.1 Lung nodule R91.1
[2021-11-24 15:04] LABS: Cortisol Random 13.82 ug/dL (2.47-19.5)
[2021-11-24] MEDS: tamsulosin 0.4 mg Capsule PO (20:29)
[2021-11-25] VITALS (11 sets, daily range): BP systolic 64–128; BP diastolic 40–83; PULSE 55–75; RESP 14–21; TEMP 36.7–37.1; O2SAT 21–97
[2021-11-25 04:36] LABS: Basophils % 0.6 %; Eosinophils # 0.3 10^3/uL (0.0-0.8); Eosinophils % 6.2 %; Hemoglobin 11.5 g/dL (11.5-15.3); Lymphocytes # 0.9 10^3/uL (0.8-4.8); Lymphocytes % 17.1 %; Mean Corpuscular HGB Conc 31.9 g/dL (30.0-36.0); Mean Corpuscular Hemoglobin 29.9 pg (28.0-34.0); Mean Corpuscular Volume 93.5 fl (81-99); Mean Platelet Volume 13.2 fL (7.4-10.4); Monocytes # 0.5 10^3/uL (0.2-0.9); Monocytes % 8.5 %; Neutrophils # 3.57 10^3/uL (1.8-7.7); Neutrophils % 67.2 %; Nucleated Red Blood Cells % 0 %; Platelet Count 161 10^3/cmm (130-400); Red Blood Count 3.85 10^6/uL (4.1-5.3); Red Cell Distribution Width 15.2 % (12.1-15.1); White Blood Count 5.3 10^3/uL (4.0-10.0)
[2021-11-25 04:55] LABS: Slide Review Slide Review Perform
[2021-11-25 05:02] LABS: Blood Urea Nitrogen 22 mg/dL (8-23); Calcium 9.2 mg/dL (8.5-10.5); Carbon Dioxide 25 mmol/L (22-29); Chloride 109 mmol/L (98-107); Glucose 90 mg/dL (65-115); Osmolality Calculated 299 mOsm/kg (285-295); Sodium 143 mmol/L (136-145)
[2021-11-25] MEDS: midodrine 5 mg TABLET 10 MG PO ×3 (09:17→20:47)
[2021-11-25] MEDS: fludrocortisone 0.1 mg Tablet 0.2 MG PO (09:18)
[2021-11-25] MEDS: metoprolol succinate ER (24 HR) 25 mg Tablet 12.5 MG PO (09:18)
[2021-11-25] MEDS: amoxicillin 500 mg Capsule PO ×2 (09:18→17:57)
--- NOTE | 2021-11-25 09:30 | MR_ITS ---
WS: [id number] MRI LEFT HIP NONCONTRAST TECHNIQUE: Axial T1, axial T2 fat sat, coronal T1, coronal STIR, sagittal T2 fat sat, sagittal T1, an d sagittal T2 fat sat, of both hips. CLINICAL INFORMATION: persistent pain, recent falls COMPARISON: MRI January 02, 2021 CT November 23, 2021 FINDINGS: Advanced osteoarthritis LEFT hip with subchondral cystic change involving the femoral head and acetab ulum. This appears progressed compared to January 02, 2021. 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 No si gnificant joint effusion. No acute fractures. Mild edema involving the LEFT femoral head and neck and adjacent acetabulum. RIGHT hip is unremarkable. Urine distended bladder. Partially evaluated cystic adnexal lesion appears stable compared to January 02, 2021 MRI measuring 6.0 x 4.0 Normal bone marrow signal involving the sacrum and sacroiliac joints. Normal bone marrow signal invol ving the sacrum. MR/MR hip LT wo con* [id number] IMPRESSION: 1. Advanced degenerative arthritis LEFT hip with subchondral cystic changes an d suspicion for small areas of avascular necrosis involving superolateral femor al head with surrounding serpiginous low signal. Degenerative changes progresse d compared to previous. 2. Mild edema in the LEFT femoral head and acetabulum extending into the LEFT femoral neck. 3. No significant joint effusion. 4. Urine distended bladder. 5. Partially evaluated cystic adnexal lesion appears stable compared to Septem 2020 MRI measuring 6.0 x 4.0. This can be followed up with pelvic ultra sound.
--- NOTE | 2021-11-25 15:34 | PM.PN ---
Subjective Subjective: Orthostatic drop of blood pressure to 69/42 today. Awaiting MRI. No new complaints. Vitals/I&O/Wt Last Vital Signs Temp 98.3 F 11/25/21 11:32 Pulse 57 L 11/25/21 14:00 Resp 18 11/25/21 11:32 BP 96/83 11/25/21 11:32 Pulse Ox 97 11/25/21 11:32 O2 Del Method 11/25/21 11:32 O2 Flow Rate 96 11/21/21 12:00 11/25/21 11/25/21 11/25/21 06:59 14:59 22:59 Intake Total 240 / 240 Balance 240 / 240 Weight last 48 hrs Weight 65.499 kg Weight 67.903 kg Physical Exam Narrative: General: No acute distress, AO x3 HEENT: PERRLA, pupils bilaterally equal and reactive, pallors not present Chest: Normal vesicular breath sounds, no added sounds, equal good air entry bilaterally CVS: S1-S2 regular, no murmurs, no tachycardia, no gallops, no rubs Abdomen: Soft, nontender, no organomegaly, bowel sounds present Neuro: No focal deficits, no facial deformity, AO x3, power 5/5 in all limbs Data : 11/25/21 03:35 11/25/21 03:35 A&P Assessment and plan (1) Orthostatic hypotension: Continues to have orthostatic drop to 69 systolic today Received increased fludrocortisone dose to 0.2 mg daily. Reassess orthostatics. A.m. cortisol returned normal Midodrine 10 mg 3 times daily. Discussed with her strict orthostatic precautions. Lasix has been on hold. Stress test not entirely back yet but preliminarily without ischemia. Echocardiogram with normal ejection fraction. Grade 2 diastolic dysfunction. Moderately elevated filling pressures. Mild pulmonary hypertension, RVSP 37.1. Mild AVR. D-dimer abnormal, CTA negative for PE She is on tamsulosin due to incomplete bladder emptying and recurrent UTIs, discussed with her risks of orthostasis with this medication. Flomax is discontinued today. Given severity of orthostasis, needs additional optimization in the hospital. With noted mild bradycardia as well, metoprolol dose was reduced to 12.5 mg, but would not discontinue entirely given bradycardia not likely contributing to orthostasis, and has had A. fib with RVR in the past. History of paroxysmal atrial fibrillation, monitor telemetry for any tachycardia. Consider nuclear monitoring technician at discharge. Status: Acute (2) Left hip pain: MRI hip pending Status: Acute (3) Chest pain: Resolved. Status: Acute (4) Chronic cystitis: Continue amoxicillin. Tamsulosin. Follow-up with urology. Status: Acute (5) Incomplete bladder emptying: Continue tamsulosin Status: Acute (6) Pulmonary hypertension: Follow-up with pulmonology. Consider home O2 eval prior to discharge. Status: Acute (7) HEMANTH (acute kidney injury): Improved. Appears to be taking NSAIDs in the form of naproxen. Discontinue. Possibly prerenal secondary to hypotension. She does state that she has been eating and drinking well, hydrating with electrolyte solution. Hold Lasix for now. Received fluid challenge. Reassess renal function. Status: Acute (8) Bradycardia: Noted mild sinus bradycardia, in the setting of severe orthostasis, severe fatigability on exertion, reduce metoprolol dose as above. With history of paroxysmal atrial fibrillation, monitor for any tachycardia. Status: Acute (9) Lung nodule: 6 mm right upper lobe nodule stable since 2019. Status: Acute Plan 11/23 also noted abnormal rhythm on rhythm strip, appears to have an additional supraventricular rhythm with parol set of different appearing P waves which are nonconductive. Still bradycardia in upper 40s, lower 50s. 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 Bradycardia with her normal ejection fraction not likely to be contributing to orthostasis. Will not further decrease metoprolol. History of urinary bladder lesions: Status post ablation, on follow-up with urology states was reexamined with finding of scar tissue, no recurrence of suspicious lesions. Attestations Medical Necessity Statement*: pending MRI today, still with severe orthostatic drop. Stop flom Coding Level of Care Code Acute Insulation Mechanic for Chg Fwd Diagnoses Orthostatic hypotension I95.1 Left hip pain M25.552 Chest pain R07.9 Chronic cystitis N30.20 Incomplete bladder emptying R33.9 Pulmonary hypertension I27.20 HEMANTH (acute kidney injury) N17.9 Bradycardia R00.1 Lung nodule R91.1
[2021-11-26] VITALS (60 sets, daily range): BP systolic 57–142; BP diastolic 45–86; PULSE 49–71; RESP 10–24; TEMP 36.4–37.1; O2SAT 74–99
[2021-11-26 03:30] LABS: Basophils % 0.3 %; Eosinophils # 0.3 10^3/uL (0.0-0.8); Eosinophils % 5.2 %; Hematocrit 37.9 % (37.0-47.0); Lymphocytes % 16.6 %; Mean Corpuscular HGB Conc 31.7 g/dL (30.0-36.0); Mean Corpuscular Hemoglobin 29.3 pg (28.0-34.0); Mean Corpuscular Volume 92.7 fl (81-99); Mean Platelet Volume 12.7 fL (7.4-10.4); Monocytes # 0.6 10^3/uL (0.2-0.9); Monocytes % 10.5 %; Neutrophils # 3.84 10^3/uL (1.8-7.7); Neutrophils % 67.2 %; Nucleated Red Blood Cells % 0 %; Platelet Count 167 10^3/cmm (130-400); Red Blood Count 4.09 10^6/uL (4.1-5.3); White Blood Count 5.7 10^3/uL (4.0-10.0)
[2021-11-26 03:47] LABS: Anion Gap 15.2 (5-19); Blood Urea Nitrogen 20 mg/dL (8-23); Calcium 9.2 mg/dL (8.5-10.5); Carbon Dioxide 25 mmol/L (22-29); Chloride 106 mmol/L (98-107); Glucose 101 mg/dL (65-115); Osmolality Calculated 297 mOsm/kg (285-295); Potassium 4.2 mmol/L (3.5-5.1); Sodium 142 mmol/L (136-145)
[2021-11-26] MEDS: amoxicillin 500 mg Capsule PO ×2 (08:13→17:59)
[2021-11-26] MEDS: fludrocortisone 0.1 mg Tablet 0.2 MG PO (08:13)
[2021-11-26] MEDS: metoprolol succinate ER (24 HR) 25 mg Tablet 12.5 MG PO (08:13)
[2021-11-26] MEDS: midodrine 5 mg TABLET 10 MG PO ×3 (08:13→20:41)
[2021-11-26] MEDS: aspirin 325 mg Tablet PO (08:13)
--- NOTE | 2021-11-26 11:35 | PC.NURSE ---
I reported the ortho vitals to the nurse standing 64/55 57/45
[2021-11-27] VITALS (8 sets, daily range): BP systolic 79–112; BP diastolic 50–70; PULSE 51–74; RESP 12–17; TEMP 36.3–36.9; O2SAT 94–99
[2021-11-27] MEDS: midodrine 5 mg TABLET 10 MG PO (08:36)
[2021-11-27] MEDS: amoxicillin 500 mg Capsule PO (08:36)
[2021-11-27] MEDS: metoprolol succinate ER (24 HR) 25 mg Tablet 12.5 MG PO (08:37)
[2021-11-27] MEDS: fludrocortisone 0.1 mg Tablet 0.2 MG PO (09:18)
--- NOTE | 2021-11-27 12:26 | PM.DCS ---
Discharge Providers Date of Admission: 11/20/21 13:20 Date of Discharge: November 27, 2021 Attending Provider at Admission: Santino Olivares Attending Provider at Discharge: Mar Orantes MD Primary Care Provider: Maribel Mendes MD Diagnoses at Discharge Discharge Diagnosis (1) Orthostatic hypotension: Status: Acute (2) Left hip pain: Status: Acute (3) Chest pain: Status: Acute (4) Chronic cystitis: Status: Acute (5) Incomplete bladder emptying: Status: Acute (6) Pulmonary hypertension: Status: Acute (7) HEMANTH (acute kidney injury): Status: Acute (8) Bradycardia: Status: Acute (9) Lung nodule: Status: Acute Reason for Visit Reason for Visit: sob, chest pain Brief History: 76 F with pulmonary HTN admitted with fatigability, falls, severe orthostasis, initially with some right-sided chest pain, no suggestion of acute RI, negative stress test, unremarkable echocardiogram with grade 2 diastolic dysfunction, some pulmonary hypertension, mild AVR. Abnormal D-dimer, but CTA negative for PE. Incidentally seen nodule on CT chest which will need follow-up. Due to sinus bradycardia and orthostatic hypotension, her metoprolol dose was reduced to 12.5mg po daily. It was not completely discontinued so as not to precipitate A fib (patient has h/o paroxysmal A fib). She was started on treatment with midodrine with minimal response, then also added fludrocortisone and tapering up to to 0.2 mg daily. She was also on tamsulosin due to urinary retention, recurrent UTI/chronic cystitis, this was held during admission. LAsix was also placed on hold and she received gentle iv hydration. Compression stockings were also added. With these interventions, her orthostatics improved slightly at the time of discharge, today her lowest value is at 79 systolic. Though numbers do not show a significant improvement, patient is symptomatically feeling better. She has improved dizziness, there are no further falls in the hospital. On the day of discharge, she was able to ambulate in the hallway with a walker without any symptoms. Her BP at the end of her walk was at 104/65mmhG. Patient is eager to return home since she feels symptomatically better. I have discussed with her that ideally we would prefer to monitor her in the hospital until her orthostatic pressures improve, however with difficulty predicting a timeline of when this may be, understand that she is anxious to return home with symptomatic improvement. She is instructed to maintain a BP record at home, use a walker for stability when ambulating and highly encouraged to get a life alert monitor. She lives alone but tells me she has friends as neighbors who check in on her. She had c/o persistent left hip pain previously assessed by orthopedics and recommended joint replacement, but currently much worse after fell down on it several times. CT unremarkable, but with persistent pain, MRI was obtained which showed advanced degenerative changes. She will follow up with Dr. Wood as outpatient for hip replacement. Physical Exam Narrative: General: No acute distress, AO x3 HEENT: PERRLA, pupils bilaterally equal and reactive, pallors not present Chest: Normal vesicular breath sounds, no added sounds, equal good air entry bilaterally CVS: S1-S2 regular, no murmurs, no tachycardia, no gallops, no rubs Abdomen: Soft, nontender, no organomegaly, bowel sounds present Neuro: No focal deficits, no facial deformity, AO x3, power 5/5 in all limbs Extremities: no edema, clubbing or cyanosis Discharge Data Studies Completed and Pending Completed Studies During Hospitalization Category Date Time Status CT hip LT wo con* [id number] Routine Cat Scan 11/23/21 12:27 Completed CTA chest [CT angio chest PE protcl [id number]] Routine Cat Scan 11/21/21 14:34 Completed XR chest 1V portable [id number] Stat Exams 11/20/21 08:44 Completed MR hip LT wo con* [id number] Routine MRI 11/25/21 09:30 Completed NM anderson perf SPECT r/s* [id number] Routine Nuc Med 11/21/21 17:06 Completed CV. echo complete* [id number] Routine Ultrasound 11/20/21 17:06 Completed Pending at discharge Category Date Time Status Cardiac Stress Test MIBI [Sestamibi Stress Test Request Exams 11/21/21 07:00 Ordered ] Routine Radiology Impressions Chest X-Ray 11/20/21 08:44 IMPRESSION: No acute cardiopulmonary abnormality. Chest CTA 11/21/21 14:34 IMPRESSION: 1. Proximal main pulmonary arteries are normal. No evidence of pulmonary embolus. 2. Slight bibasilar atelectasis. No focal pneumonia or pleural fluid. 3. Cardiomegaly. Tiny pericardial effusion. 4. Aneurysmal ascending thoracic aorta measuring 3.7 CM. 5. Noncalcified nodule RIGHT upper lobe near the lung apex measuring 6 mm. This appears stable since June 17, [address] 11/23/21 12:27 IMPRESSION: 1. No CT evidence of acute fracture or dislocation. If the patient's clinical symptoms persist or worsen, MRI would provide a more sensitive evaluation for occult fracture. 2. Additional findings, as above. Hip MRI 11/25/21 09:30 IMPRESSION: 1. 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 Degenerative changes progressed compared to previous. 2. Mild edema in the LEFT femoral head and acetabulum extending into the LEFT femoral neck. 3. No significant joint effusion. 4. Urine distended bladder. 5. Partially evaluated cystic adnexal lesion appears stable compared to January 02, 2021 MRI measuring 6.0 x 4.0. This can be followed up with pelvic ultrasound. Laboratory Results WBC 5.7 10^3/uL (4.0-10.0) 11/26/21 03:02 RBC 4.09 10^6/uL (4.1-5.3) L 11/26/21 03:02 Hgb 12.0 g/dL (11.5-15.3) 11/26/21 03:02 Hct 37.9 % (37.0-47.0) 11/26/21 03:02 MCV 92.7 fl (81-99) 11/26/21 03:02 MCH 29.3 pg (28.0-34.0) 11/26/21 03:02 MCHC 31.7 g/dL (30.0-36.0) 11/26/21 03:02 RDW 15.0 % (12.1-15.1) 11/26/21 03:02 Plt Count 167 10^3/cmm (130-400) 11/26/21 03:02 MPV 12.7 fL (7.4-10.4) H 11/26/21 03:02 Neut % (Auto) 67.2 % 11/26/21 03:02 Lymph % (Auto) 16.6 % 11/26/21 03:02 Harris % (Auto) 10.5 % 11/26/21 03:02 Eos % (Auto) 5.2 % 11/26/21 03:02 Baso % (Auto) 0.3 % 11/26/21 03:02 Neut # (Auto) 3.84 10^3/uL (1.8-7.7) 11/26/21 03:02 Lymph # (Auto) 1.0 10^3/uL (0.8-4.8) 11/26/21 03:02 Harris # (Auto) 0.6 10^3/uL (0.2-0.9) 11/26/21 03:02 Eos # (Auto) 0.3 10^3/uL (0.0-0.8) 11/26/21 03:02 Baso # (Auto) 0.0 10^3/uL (0.0-0.1) 11/26/21 03:02 Nucleated RBC % (auto) 0 % 11/26/21 03:02 Nucleated RBCs # 0.0 /100WBC 11/26/21 03:02 D-Dimer 2.87 ug/mIFEU (0-0.59) H 11/20/21 09:17 Sodium 142 mmol/L (136-145) 11/26/21 03:02 Potassium 4.2 mmol/L (3.5-5.1) 11/26/21 03:02 Chloride 106 mmol/L (98-107) 11/26/21 03:02 Carbon Dioxide 25 mmol/L (22-29) 11/26/21 03:02 Anion Gap 15.2 (5-19) 11/26/21 03:02 BUN 20 mg/dL (8-23) 11/26/21 03:02 Creatinine 1.0 mg/dL (0.5-0.9) H 11/26/21 03:02 GFR Calculation Not Reportable 11/26/21 03:02 Glucose 101 mg/dL (65-115) 11/26/21 03:02 Calculated Osmolality 297 mOsm/kg (285-295) H 11/26/21 03:02 Calcium 9.2 mg/dL (8.5-10.5) 11/26/21 03:02 Total Bilirubin 0.3 mg/dL (0.15-1.2) 11/23/21 04:05 AST 18 U/L (0-32) 11/23/21 04:05 ALT 17 U/L (0-33) 11/23/21 04:05 Alkaline Phosphatase 87 IU/L (35-105) 11/23/21 04:05 Troponin T Baseline 19 ng/L (0-10) H 11/20/21 09:17 Troponin T 120 Minute 14.34 ng/L (0-10) H 11/20/21 11:22 Delta Troponin T -4.66 ABS# (0-10) L 11/20/21 11:22 Troponin T Hi Sens 6Hr 11.84 ng/L (0-10) H 11/20/21 15:20 Troponin T Hi Sens 6Hr Delta -7.16 ng/L (0-12) L 11/20/21 15:20 NT-Pro-B Natriuret Pep 530 pg/mL (0-450) H 11/20/21 09:17 Total Protein 6.2 g/dL (6.6-8.7) L 11/23/21 04:05 Albumin 3.7 g/dL (3.5-5.2) 11/23/21 04:05 Globulin 2.5 g/dL (1.3-4.6) 11/23/21 04:05 Lipase 31 U/L (13-60) 11/20/21 09:17 TSH 3.66 uIU/mL (0.27-4.20) 11/20/21 09:17 Random Cortisol 13.82 ug/dL (2.47-19.5) 11/24/21 05:35 SARS-CoV-2 Ag (Rapid) Negative (Negative) 11/20/21 10:15 Vitals Last Vital Signs Temp 98.5 F 11/27/21 11:15 Pulse 57 L 11/27/21 11:15 Resp 16 11/27/21 11:15 BP 97/56 11/27/21 11:15 Pulse Ox 94 11/27/21 11:15 O2 Del Method 11/27/21 11:15 O2 Flow Rate 96 11/21/21 12:00 Discharge Plan Discharge Patient Disposition: Home Health Service Condition: Stable Prescriptions: New midodrine 5 mg Tablet 10 mg PO TID 30 Days Qty: 180 0RF fludrocortisone 0.1 mg Tablet 0.2 mg PO DAILY 30 Days Qty: 30 0RF metoprolol succinate 25 mg Tablet Extended Release 24 Hr 12.5 mg PO DAILY 30 Days Qty: 30 0RF Continued polyethylene glycol 3350 [Miralax] 17 gram powder in packet 17 g PO DAILY PRN (Reason: Constipation) amoxicillin 500 mg capsule 500 mg PO BID Qty: 60 2RF multivitamin Tablet 1 tab PO DAILY magnesium 250 mg Tablet 250 mg PO .TWICE A WEEK PRN (Reason: unknown) aspirin 325 mg tablet 325 mg PO EVERY OTHER DAY Discontinued metoprolol succinate 25 mg tablet extended release 24 hr 25 mg PO DAILY Qty: 90 3RF furosemide 20 mg tablet 20 mg PO DAILY PRN (Reason: edema) Qty: 30 3RF tamsulosin 0.4 mg capsule 0.4 mg PO BEDTIME Qty: 30 3RF naproxen sodium [Aleve] 220 mg Tablet 220 mg PO BID PRN (Reason: Pain) Discharge Orders: Discharge Order (Routine); Ordered 11/27/21 Ordered By: Mar Orantes Referrals: [facility] [Outside] Maribel Mendes MD [Primary Care Provider] - Celeste Barnhart FNP [Nurse Practitioner] - 4-7 days (follow up pulm HTN and orthostatic hypotension ) Discharge Diet: Usual diet Discharge Activity: Use walker/crutches as instructed Patient Instructions: Opioid Safety Discharge Attestations Time Spent in Discharge Care*: greater than 30 min Quality Metrics Clinical Quality Measures [ No reported AMI, CVA or VTE this stay] Coding Level of Care Code Acute Chg FW DC note Diagnoses Orthostatic hypotension I95.1 Left hip pain M25.552 Chest pain R07.9 Chronic cystitis N30.20 Incomplete bladder emptying R33.9 Pulmonary hypertension I27.20 HEMANTH (acute kidney injury) N17.9 Bradycardia R00.1 Lung nodule R91.1
--- NOTE | 2021-11-27 13:59 | PC.NURSE ---
Discharge instructions provided, IV removed, patient is waiting for meds to beds.
--- NOTE | 2021-11-27 14:23 | PC.NURSE ---
Discharge Note Patient discharged to home via wheelchair accompanied by friend. Discharge instructions reviewed with patient and/or entry level account representative. Mobile pharmacy medications and/or prescriptions provided. Belongings/home medications returned.
== END 2021-11-27 14:24 | disposition home health service (06) ==
LOC: ER 13:26 → MEDSURG 16:54
PROVIDERS: Admitting Provider Internal Medicine; Emergency Provider Emergency Medicine; PCP Family Medicine; Visit Provider Student in an Organized Health Care Education/Training Program
DX: I95.1 Orthostatic hypotension (principal); M25.552 Pain in left hip; R07.9 Chest pain, unspecified; N30.20 Other chronic cystitis without hematuria; R33.9 Retention of urine, unspecified; I27.20 Pulmonary hypertension, unspecified; N17.9 Acute kidney failure, unspecified; R00.1 Bradycardia, unspecified; R91.1 Solitary pulmonary nodule; I48.0 Paroxysmal atrial fibrillation; Z91.81 History of falling; M16.12 Unilateral primary osteoarthritis, left hip; Z85.51 Personal history of malignant neoplasm of bladder; Z79.2 Long term (current) use of antibiotics; Z79.82 Long term (current) use of aspirin
CPT/HCPCS: 36415; 71045; 71275; 73700; 73721; 78452; 80048; 80053; 82533; 83690; 83880; 84443; 84484; 85025; 85378; 87426; 93005; 93017; 93306; 96360; 99285; A9500; G0378; J2785; J7030; Q9967

== ENCOUNTER 2021-12-05 17:06 | Emergency (ER) | payer OTHER, MEDICARE, SELFPAY ==
[2021-12-05 17:50] VITALS: BP 120/67; PULSE 75; RESP 16; TEMP 36.9; O2SAT 98; BMI 25.1
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
== END 2021-12-05 19:10 | disposition home or self-care (01) ==
PROVIDERS: Emergency Provider Physician Assistant; PCP Family Medicine
DX: Z04.1 Encounter for examination and observation following transport accident (principal); Z79.82 Long term (current) use of aspirin; Z85.51 Personal history of malignant neoplasm of bladder; V47.5XXA Car driver injured in collision with fixed or stationary object in traffic accident, initial encounter
CPT/HCPCS: 71045; 99283

== ENCOUNTER → 2021-12-10 12:28 | Outpatient (BNVA) | payer MEDICARE, SELFPAY | PROVIDERS: PCP Family Medicine; Visit Provider Internal Medicine Cardiovascular Disease | DX: R00.1 Bradycardia, unspecified (principal); I48.0 Paroxysmal atrial fibrillation | CPT/HCPCS: 99213 ==

== ENCOUNTER → 2022-01-08 10:12 | Outpatient (BNVA) | payer MEDICARE, SELFPAY | PROVIDERS: PCP Family Medicine; Referring Provider Urology; Visit Provider Obstetrics & Gynecology | DX: N83.209 Unspecified ovarian cyst, unspecified side (principal) | CPT/HCPCS: 81500 ==

== ENCOUNTER → 2022-02-05 08:36 | Outpatient (BNVA) | payer MEDICARE, SELFPAY | PROVIDERS: PCP Family Medicine; Visit Provider Obstetrics & Gynecology | DX: N83.209 Unspecified ovarian cyst, unspecified side (principal); N83.8 Other noninflammatory disorders of ovary, fallopian tube and broad ligament | CPT/HCPCS: 76830; 76856 ==

== ENCOUNTER 2022-03-08 04:12 | Emergency (ER) | payer MEDICARE, SELFPAY ==
[2022-03-08] VITALS (7 sets, daily range): BP systolic 97–138; BP diastolic 58–74; PULSE 53–99; RESP 16–19; TEMP 36.9; O2SAT 95–99; BMI 24.7
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
--- NOTE | 2022-03-08 04:57 | ECG_ITS ---
[facility] Test Date: 2022-03-08 Pat Name: Destiny Quintana Department: Room: Gender: Female Wood Floor Layer: : 1945 Requested By: Madhav Venegas Order Number: [id number] Lizbet MD: Ren Baldwin M.D. Measurements Intervals Loving Rate: 67 P: 76 NM: 176 QRS: -35 QRSD: 80 T: 11 QT: 352 QTc: 372 Interpretive Statements SINUS RHYTHM WITH OCCASIONAL ECTOPIC PREMATURE COMPLEXES LEFT AXIS DEVIATION [QRS AXIS < -30] LOW QRS VOLTAGE IN PRECORDIAL LEADS [QRS DEFLECTION < 1.0 mV IN CHEST LEADS] POSSIBLE ANTERIOR MYOCARDIAL INFARCTION , PROBABLY OLD [30 ms Q WAVE IN V3/V4, OR R < 0.2 mV IN V4] Compared to ECG 11/22/2021 13:11:14 Sinus bradycardia no longer present Myocardial infarct finding still present Electronically Signed On 03-10-2022 18:24:27 [employer]CAR RACER by Ren Baldwin M.D. [email or web address]
[2022-03-08 05:57] LABS: Troponin(5th) Baseline 19 ng/L (0-10)
[2022-03-08] MEDS: nitroglycerin 1 gm/inch oint Pkt 0.5 INCH TOPICAL (05:59)
[2022-03-08 06:02] LABS: Basophils % 0.6 %; Eosinophils # 0.2 10^3/uL (0.0-0.8); Eosinophils % 3.1 %; Hematocrit 40.1 % (37.0-47.0); Hemoglobin 12.4 g/dL (11.5-15.3); Lymphocytes # 0.9 10^3/uL (0.8-4.8); Mean Corpuscular HGB Conc 30.9 g/dL (30.0-36.0); Mean Corpuscular Hemoglobin 29.5 pg (28.0-34.0); Mean Corpuscular Volume 95.2 fl (81-99); Mean Platelet Volume 12.6 fL (7.4-10.4); Monocytes # 0.3 10^3/uL (0.2-0.9); Monocytes % 6.7 %; Neutrophils % 72.4 %; Nucleated Red Blood Cells % 0 %; Platelet Count 174 10^3/cmm (130-400); Red Blood Count 4.21 10^6/uL (4.1-5.3); Red Cell Distribution Width 14.2 % (12.1-15.1); White Blood Count 5.1 10^3/uL (4.0-10.0)
[2022-03-08 06:15] LABS: Alanine Aminotransferase 11 U/L (0-33); Albumin Level 3.5 g/dL (3.5-5.2); Alkaline Phosphatase 81 U/L (35-105); Anion Gap 10.9 (5-19); Aspartate Amino Transferase 16 U/L (0-32); Blood Urea Nitrogen 16 mg/dL (8-23); Calcium 9.4 mg/dL (8.5-10.5); Carbon Dioxide 27 mmol/L (22-29); Chloride 101 mmol/L (98-107); Creatine Phosphokinase 84 U/L (26-192); Creatinine Clr Calc Pharmacy 54.5222; Glucose 96 mg/dL (65-115); Osmolality Calculated 281 mOsm/kg (285-295); Potassium 3.9 mmol/L (3.5-5.1); Sodium 135 mmol/L (136-145); Total Bilirubin 0.2 mg/dL (0.15-1.2); Total Protein 6.5 g/dL (6.6-8.7)
--- NOTE | 2022-03-08 06:26 | W.ED.CHESTPA ---
HPI - Chest Pain General: Chief Complaint: Chest Pain Stated Complaint: high bp Time Seen by Provider: 03/08/22 04:56 Source: patient History of Present Illness: 76-year-old female with a history of atrial fibrillation. She does not have a history of coronary disease. She does have a history of pulmonary hypertension. She presents after waking around 2:30 in the morning with palpitations and chest pressure. She had been given metoprolol to take an extra dose for these types of symptoms. She did this, but did not seem to improve. On arrival, though, she has improved significantly. Her pressure is down to 4 out of 10. Her heart rates down to the 60s. MD complaint: chest heaviness and chest discomfort Pertinent past history: other Onset (ago): hour(s) Timing of current episode: constant Prior episodes: Yes Onset: awoke with symptoms Pain radiation: none Quality: aching and heaviness Relieving factors: other Exacerbating factors: nothing Associated symptoms: Reports dyspnea (Mild), nausea and palpitations; Deny abdominal pain, diaphoresis, leg edema or vomiting Treatment prior to arrival: other Review of Systems Const: Denies: diaphoresis Eyes: Denies: change in vision ENMT: Denies: throat pain Card: Reports: chest pain, palpitations and irregular heart rhythm Resp: Reports: dyspnea (Mild) GI: Reports: nausea; Denies: abdominal pain or vomiting [facility] ED PFSH: Medical History Chest pain Chronic cystitis History of bladder cancer History of hematuria Incomplete bladder emptying Lung nodule Palpitations Paroxysmal atrial fibrillation Surgical History S/P cataract surgery S/P ear surgery S/P lateral meniscus repair of right knee Status post surgical removal and fulguration of bladder neoplasm Family History Father Colon cancer Denies family history of Ovarian cancer Diabetes Heart disease Hypercholesteremia Breast cancer Hypertension Uterine cancer Thyroid disease Stroke Social History Smoking and tobacco status: former smoker Physical Exam Const: GENERAL APPEARANCE: cooperative, comfortable and frail appearing; not ill appearing HENMT: COMMON NORMALS: normocephalic, atraumatic and Normal external nose present HEAD & SCALP: normocephalic and atraumatic FACE & SINUS: normal facial exam NOSE: Normal external nose present Eye: COMMON NORMALS: Equal, round and reactive pupils present and EOMs intact bilaterally PUPIL: Yes Equal, round and reactive pupils present Neck/C-Spine: GENERAL: Yes trachea midline Chest: CHEST: Yes Symmetrical chest wall rise and No tenderness Resp: COMMON NORMALS: normal respiratory effort, No use of accessory muscles and clear to auscultation bilaterally AUSCULTATION: clear to auscultation bilaterally Cardio: COMMON NORMALS: regular rate RATE: regular rate RHYTHM: abnormal rhythm irregularly irregular GI: COMMON NORMALS: Soft to palpation PALPATION: Yes Soft to palpation Neuro: DARRION COMA SCALE: document GCS findings [place] coma scale eye opening: Spontaneous [place] coma scale verbal response: None Course Vital Signs: Vital signs: Vital Signs Temperature 98.5 F 03/08/22 04:43 Pulse Rate 55 L 03/08/22 08:34 Respiratory Rate 16 03/08/22 08:34 Blood Pressure 138/74 03/08/22 08:34 Pulse Oximetry 95 03/08/22 08:34 Oxygen Delivery Me thod 03/08/22 08:15 MDM - Chest Pain Medical Decision Making Half-inch Nitropaste is placed on the patient's chest, she gives a history of nitroglycerin helping with her pressure when this happens. CBC is normal. BMP is not remarkable. First troponin is 19. EKG shows a sinus rhythm with occasional ectopic beat. No acute ST changes chest x-ray is nonacute. Will await a second troponin. If it does not rise significantly, patient can likely be discharged home. Lab Data 03/08/22 05:44 03/08/22 05:44 Radiology Impressions Chest X-Ray 03/08/22 04:56 IMPRESSION: No chest radiographic evidence of acute cardiopulmonary disease. Laboratory Results WBC 5.1 10^3/uL (4.0-10.0) 03/08/22 05:44 Corrected WBC Cancelled 03/08/22 05:25 RBC 4.21 10^6/uL (4.1-5.3) 03/08/22 05:44 Hgb 12.4 g/dL (11.5-15.3) 03/08/22 05:44 Hct 40.1 % (37.0-47.0) 03/08/22 05:44 MCV 95.2 fl (81-99) 03/08/22 05:44 MCH 29.5 pg (28.0-34.0) 03/08/22 05:44 MCHC 30.9 g/dL (30.0-36.0) 03/08/22 05:44 RDW 14.2 % (12.1-15.1) 03/08/22 05:44 Plt Count 174 10^3/cmm (130-400) 03/08/22 05:44 MPV 12.6 fL (7.4-10.4) H 03/08/22 05:44 Gran % Cancelled 03/08/22 05:25 Neut % (Auto) 72.4 % 03/08/22 05:44 Lymph % (Auto) 17.0 % 03/08/22 05:44 [place] % (Auto) 6.7 % 03/08/22 05:44 Eos % (Auto) 3.1 % 03/08/22 05:44 Baso % (Auto) 0.6 % 03/08/22 05:44 Neut # (Auto) 3.70 10^3/uL (1.8-7.7) 03/08/22 05:44 Lymph # (Auto) 0.9 10^3/uL (0.8-4.8) 03/08/22 05:44 [place] # (Auto) 0.3 10^3/uL (0.2-0.9) 03/08/22 05:44 Eos # (Auto) 0.2 10^3/uL (0.0-0.8) 03/08/22 05:44 Baso # (Auto) 0.0 10^3/uL (0.0-0.1) 03/08/22 05:44 Absolute Gran (auto) Cancelled 03/08/22 05:25 Nucleated RBC % (auto) 0 % 03/08/22 05:44 Nucleated RBCs # 0.0 /100WBC 03/08/22 05:44 Sodium 135 mmol/L (136-145) L 03/08/22 05:44 Potassium 3.9 mmol/L (3.5-5.1) 03/08/22 05:44 Chloride 101 mmol/L (98-107) 03/08/22 05:44 Carbon Dioxide 27 mmol/L (22-29) 03/08/22 05:44 Anion Gap 10.9 (5-19) 03/08/22 05:44 BUN 16 mg/dL (8-23) 03/08/22 05:44 Creatinine 0.6 mg/dL (0.5-0.9) 03/08/22 05:44 GFR Calculation Not Reportable 03/08/22 05:44 Glucose 96 mg/dL (65-115) 03/08/22 05:44 Calculated Osmolality 281 mOsm/kg (285-295) L 03/08/22 05:44 Calcium 9.4 mg/dL (8.5-10.5) 03/08/22 05:44 Total Bilirubin 0.2 mg/dL (0.15-1.2) 03/08/22 05:44 AST 16 U/L (0-32) 03/08/22 05:44 ALT 11 U/L (0-33) 03/08/22 05:44 Alkaline Phosphatase 81 U/L (35-105) 03/08/22 05:44 Creatine Kinase 84 U/L (26-192) 03/08/22 05:44 Troponin T Baseline 19 ng/L (0-10) H 03/08/22 05:25 Troponin T 120 Minute 18.18 ng/L (0-10) H 03/08/22 07:30 Delta Troponin T -0.82 ABS# (0-10) L 03/08/22 07:30 Total Protein 6.5 g/dL (6.6-8.7) L 03/08/22 05:44 Albumin 3.5 g/dL (3.5-5.2) 03/08/22 05:44 Globulin 3.0 g/dL (1.3-4.6) 03/08/22 05:44 Discharge Plan Discharge Patient Disposition: Home Clinical Impression: Paroxysmal atrial fibrillation Chest pain Qualifiers: Chest pain type: unspecified Qualified Code(s): R07.9 - Chest pain, unspecified Condition: Stable Prescriptions: No Action polyethylene glycol 3350 [Miralax] 17 gram powder in packet 17 g PO DAILY PRN (Reason: Constipation) furosemide 20 mg tablet See Rx Instructions .ROUTE .COMPLEX Qty: 30 0RF Dose Instruction: TAKE 1 TABLET BY MOUTH ONCE DAILY NEEDED FOR EDEMA Rx Instructions: TAKE 1 TABLET BY MOUTH ONCE DAILY NEEDED FOR EDEMA amoxicillin 500 mg capsule 500 mg PO BID Qty: 60 1RF multivitamin Tablet 1 tab PO DAILY magnesium 250 mg Tablet 250 mg PO .TWICE A WEEK PRN (Reason: unknown) aspirin 325 mg tablet 325 mg PO EVERY OTHER DAY ibuprofen 600 mg tablet 600 mg PO Q8H PRN (Reason: pain) Qty: 30 0RF methocarbamol 750 mg tablet 750 mg PO Q8H PRN (Reason: muscle spasms and pain) Qty: 20 0RF Discharge Orders: Discharge ED (Routine); Ordered 03/08/22 Ordered By: Lokesh Albrecht Referrals: Maribel Mendes MD [Primary Care Provider] - 1-3 days (Follow-up with your family doctor early this week.) Discharge Diet: Low Salt Discharge Activity: Increase activity as tolerated Patient Instructions: Chest Pain (ED) Activity Restrictions/Additional Instructions: Return for return of chest discomfort, shortness of breath, fever, any other concerning symptoms. Return if any problems. Follow-up with your family doctor this week or follow-up with your cartridge filler this week for recheck. Avoid caffeine. Coding Level of Care Code ED Professional Fee Coder for Juan Antoniog Fwd Exam Comprehensive
--- NOTE | 2022-03-08 06:47 | W.ED.CHESTPA ---
HPI - Chest Pain General: Chief Complaint: Chest Pain Stated Complaint: high bp Time Seen by Provider: 03/08/22 04:56 Source: patient History of Present Illness: See Dr. Villeda's note. This is an addendum note at shift change. I am unable to edit his note. complaint: chest pain Quality: aching and heaviness Relieving factors: other Exacerbating factors: nothing Associated symptoms: Reports dyspnea, nausea and palpitations Review of Systems ENMT: Denies: throat pain Card: Reports: chest pain and palpitations Resp: Reports: dyspnea GI: Reports: nausea Neuro: Denies: headache(s) or dizziness PFS ED PFSH: Medical History Chest pain Chronic cystitis History of bladder cancer History of hematuria Incomplete bladder emptying Lung nodule Palpitations Paroxysmal atrial fibrillation Surgical History S/P cataract surgery S/P ear surgery S/P lateral meniscus repair of right knee Status post surgical removal and fulguration of bladder neoplasm Family History Father Colon cancer Denies family history of Ovarian cancer Diabetes Heart disease Hypercholesteremia Breast cancer Hypertension Uterine cancer Thyroid disease Stroke Social History Smoking and tobacco status: former smoker Physical Exam Narrative: EXAM NARRATIVE: See Dr. Villeda's physical exam documentation Const: COMMON NORMALS: no acute distress, patient oriented x3, alert and well nourished HENMT: COMMON NORMALS: normocephalic and atraumatic HEAD & SCALP: normal to inspection, normocephalic and atraumatic Neck/C-Spine: COMMON NORMALS: supple, no JVD and Thyroid normal THYROID: Thyroid normal Lymph: LYMPHATIC: no lymphadenopathy noted Chest: CHEST: No crepitus Cardio: COMMON NORMALS: no JVD, regular rate and regular rhythm RATE: regular rate RHYTHM: regular rhythm GI: COMMON NORMALS: Normal to inspection, nondistended, normoactive bowel sounds present and Soft to palpation PALPATION: Yes Soft to palpation Extremity: COMMON NORMALS: normal to inspection Neuro: COMMON NORMALS: patient oriented x3 SENSORIUM/ORIENTATION: Yes alert Psych: COMMON NORMALS: mental status grossly normal, cooperative, normal affect and speech normal SPEECH: Yes normal speech Course Vital Signs: Vital signs: Vital Signs Temperature 98.5 F 03/08/22 04:43 Pulse Rate 53 L 03/08/22 08:15 Respiratory Rate 16 03/08/22 08:15 Blood Pressure 112/66 03/08/22 05:45 Pulse Oximetry 96 03/08/22 08:15 Oxygen Delivery Me thod 03/08/22 08:15 MDM - Chest Pain Medical Decision Making I also examined the patient. Patient appears in no distress. Heart rate is in the upper 50s. Telemetry shows sinus bradycardia with occasional PACs. Patient states she feels fine now. I documented my physical exam on the patient. Repeat EKG is unchanged. Patient states that she does not want to be on a blood thinner other than aspirin. She is presently taking aspirin 3 and 25 mg daily. She has discussed this with her hog scraper. Lab Data 03/08/22 05:44 03/08/22 05:44 Radiology Impressions Chest X-Ray 03/08/22 04:56 IMPRESSION: No chest radiographic evidence of acute cardiopulmonary disease. Laboratory Results WBC 5.1 10^3/uL (4.0-10.0) 03/08/22 05:44 Corrected WBC Cancelled 03/08/22 05:25 RBC 4.21 10^6/uL (4.1-5.3) 03/08/22 05:44 Hgb 12.4 g/dL (11.5-15.3) 03/08/22 05:44 Hct 40.1 % (37.0-47.0) 03/08/22 05:44 MCV 95.2 fl (81-99) 03/08/22 05:44 MCH 29.5 pg (28.0-34.0) 03/08/22 05:44 MCHC 30.9 g/dL (30.0-36.0) 03/08/22 05:44 RDW 14.2 % (12.1-15.1) 03/08/22 05:44 Plt Count 174 10^3/cmm (130-400) 03/08/22 05:44 MPV 12.6 fL (7.4-10.4) H 03/08/22 05:44 Gran % Cancelled 03/08/22 05:25 Neut % (Auto) 72.4 % 03/08/22 05:44 Lymph % (Auto) 17.0 % 03/08/22 05:44 [place] % (Auto) 6.7 % 03/08/22 05:44 Eos % (Auto) 3.1 % 03/08/22 05:44 Baso % (Auto) 0.6 % 03/08/22 05:44 Neut # (Auto) 3.70 10^3/uL (1.8-7.7) 03/08/22 05:44 Lymph # (Auto) 0.9 10^3/uL (0.8-4.8) 03/08/22 05:44 [place] # (Auto) 0.3 10^3/uL (0.2-0.9) 03/08/22 05:44 Eos # (Auto) 0.2 10^3/uL (0.0-0.8) 03/08/22 05:44 Baso # (Auto) 0.0 10^3/uL (0.0-0.1) 03/08/22 05:44 Absolute Gran (auto) Cancelled 03/08/22 05:25 Nucleated RBC % (auto) 0 % 03/08/22 05:44 Nucleated RBCs # 0.0 /100WBC 03/08/22 05:44 Sodium 135 mmol/L (136-145) L 03/08/22 05:44 Potassium 3.9 mmol/L (3.5-5.1) 03/08/22 05:44 Chloride 101 mmol/L (98-107) 03/08/22 05:44 Carbon Dioxide 27 mmol/L (22-29) 03/08/22 05:44 Anion Gap 10.9 (5-19) 03/08/22 05:44 BUN 16 mg/dL (8-23) 03/08/22 05:44 Creatinine 0.6 mg/dL (0.5-0.9) 03/08/22 05:44 GFR Calculation Not Reportable 03/08/22 05:44 Glucose 96 mg/dL (65-115) 03/08/22 05:44 Calculated Osmolality 281 mOsm/kg (285-295) L 03/08/22 05:44 Calcium 9.4 mg/dL (8.5-10.5) 03/08/22 05:44 Total Bilirubin 0.2 mg/dL (0.15-1.2) 03/08/22 05:44 AST 16 U/L (0-32) 03/08/22 05:44 ALT 11 U/L (0-33) 03/08/22 05:44 Alkaline Phosphatase 81 U/L (35-105) 03/08/22 05:44 Creatine Kinase 84 U/L (26-192) 03/08/22 05:44 Troponin T Baseline 19 ng/L (0-10) H 03/08/22 05:25 Troponin T 120 Minute 18.18 ng/L (0-10) H 03/08/22 07:30 Delta Troponin T -0.82 ABS# (0-10) L 03/08/22 07:30 Total Protein 6.5 g/dL (6.6-8.7) L 03/08/22 05:44 Albumin 3.5 g/dL (3.5-5.2) 03/08/22 05:44 Globulin 3.0 g/dL (1.3-4.6) 03/08/22 05:44 Imaging Data CXR: My impression: Portable chest x-ray shows nothing acute. Radiologist's impression: PROCEDURE INFORMATION: Exam: XR Chest Exam date and time: 03/08/2022 6:14 AM Age: 76 years old Clinical indication: Pain; Chest pressure; Additional info: Cp TECHNIQUE: Imaging protocol: Radiologic exam of the chest. Views: 1 view. COMPARISON: CR (CHEST, ) 12/05/2021 6:30 PM FINDINGS: Lungs: Normal lung volumes. No interstitial or airspace opacities. Pleural spaces: No pleural effusion. No pneumothorax. Heart/Mediastinum: Normal heart size. There is a mildly tortuous thoracic aorta. Midline trachea. Bones/joints: No acute abnormalities. XR/XR chest 1V portable [id number] IMPRESSION: No chest radiographic evidence of acute cardiopulmonary disease. ? Dictated By: Ej Overton MD Signed By: Ej Overton MD Signed Date/Time: 03/08/22 0628 EKG Data EKG 1: I personally reviewed and interpreted this EKG as follows: EKG interpretation date: 03/08/22 EKG interpretation time: 06:50 Interpretation: Normal sinus rhythm with occasional PACs. Left axis. Normal ST segment. Normal P waves, normal T waves. EKG was interpreted earlier by Dr. Villeda. EKG 2: I personally reviewed and interpreted this EKG as follows: EKG interpretation date: 03/08/22 EKG interpretation time: 07:02 Prior EKG tracings: available for review Interpretation: Impression sinus bradycardia with heart rate of 54. Occasional PAC. Continued left axis. Normal P waves, normal T waves, normal QT interval, normal SD interval. Unchanged from previous EKG. Other Data Patient was offered admission for further cardiac work-up. Patient declined admission and wants to go home and follow-up with her family doctor on Thursday. She was advised to avoid any caffeine. She will continue her medications as prescribed. She did agree to return if worse. Discharge Plan Discharge Patient Disposition: Home Clinical Impression: Paroxysmal atrial fibrillation Chest pain Qualifiers: Chest pain type: unspecified Qualified Code(s): R07.9 - Chest pain, unspecified Condition: Stable Prescriptions: No Action polyethylene glycol 3350 [Miralax] 17 gram powder in packet 17 g PO DAILY PRN (Reason: Constipation) furosemide 20 mg tablet See Rx Instructions .ROUTE .COMPLEX Qty: 30 0RF Dose Instruction: TAKE 1 TABLET BY MOUTH ONCE DAILY NEEDED FOR EDEMA Rx Instructions: TAKE 1 TABLET BY MOUTH ONCE DAILY NEEDED FOR EDEMA amoxicillin 500 mg capsule 500 mg PO BID Qty: 60 1RF multivitamin Tablet 1 tab PO DAILY magnesium 250 mg Tablet 250 mg PO .TWICE A WEEK PRN (Reason: unknown) aspirin 325 mg tablet 325 mg PO EVERY OTHER DAY ibuprofen 600 mg tablet 600 mg PO Q8H PRN (Reason: pain) Qty: 30 0RF methocarbamol 750 mg tablet 750 mg PO Q8H PRN (Reason: muscle spasms and pain) Qty: 20 0RF Discharge Orders: Discharge ED (Routine); Ordered 03/08/22 Ordered By: Lokesh Albrecht Referrals: Maribel Mendes MD [Primary Care Provider] - 1-3 days (Follow-up with your family doctor early this week.) Discharge Diet: Low Salt Discharge Activity: Increase activity as tolerated Patient Instructions: Chest Pain (ED) Activity Restrictions/Additional Instructions: Return for return of chest discomfort, shortness of breath, fever, any other concerning symptoms. Return if any problems. Follow-up with your family doctor this week or follow-up with your hog scraper this week for recheck. Avoid caffeine. Coding Level of Care Code ED Video Conference Specialist for Renea Fwd Exam Comprehensive
--- NOTE | 2022-03-08 06:55 | ECG_ITS ---
[facility] Test Date: 2022-03-08 Pat Name: Destiny Quintana Department: Room: Gender: Female Cigarette Tester: : 1945 Requested By: Madhav Venegas Order Number: [id number] Lizbet MD: Ren Baldwin M.D. Measurements Intervals [place] Rate: 54 P: 85 TN: 155 QRS: -34 QRSD: 82 T: 12 QT: 403 QTc: 385 Interpretive Statements SINUS BRADYCARDIA WITH MARKED SINUS ARRHYTHMIA LEFT AXIS DEVIATION [QRS AXIS < -30] LOW QRS VOLTAGE IN PRECORDIAL LEADS [QRS DEFLECTION < 1.0 mV IN CHEST LEADS] POSSIBLE ANTERIOR MYOCARDIAL INFARCTION , PROBABLY OLD [30 ms Q WAVE IN V3/V4, OR R < 0.2 mV IN V4] Compared to ECG 03/08/2022 04:57:58 Sinus rhythm no longer present Myocardial infarct finding still present Electronically Signed On 03-10-2022 18:31:04 STEEL LAYER by Ren Baldwin M.D. [id number]
[2022-03-08 07:59] LABS: Troponin 5 2HR 18.18 ng/L (0-10)
[2022-03-08 08:09] LABS: Troponin 5 2HR Delta -0.82 ABS# (0-10)
== END 2022-03-08 08:34 | disposition home or self-care (01) ==
PROVIDERS: Emergency Medicine; Emergency Provider Family Medicine; PCP Family Medicine
DX: R07.9 Chest pain, unspecified (principal); I48.0 Paroxysmal atrial fibrillation
CPT/HCPCS: 71045; 80053; 82550; 84484; 85025; 93005; 99285

== ENCOUNTER → 2022-03-19 12:37 | Outpatient (BNVA) | payer MEDICARE, SELFPAY | PROVIDERS: PCP Family Medicine; Visit Provider Nurse Practitioner Family | DX: I48.0 Paroxysmal atrial fibrillation (principal); Z87.891 Personal history of nicotine dependence | CPT/HCPCS: 99213 ==

== ENCOUNTER → 2022-04-24 12:52 | Outpatient (BNVA) | payer MEDICARE, SELFPAY | PROVIDERS: PCP Family Medicine; Visit Provider Urology | DX: N30.20 Other chronic cystitis without hematuria (principal); Z85.51 Personal history of malignant neoplasm of bladder; R33.9 Retention of urine, unspecified; N83.209 Unspecified ovarian cyst, unspecified side | CPT/HCPCS: 81003; 99213 ==

== ENCOUNTER 2022-04-29 08:52 | Inpatient (IN) | payer MEDICARE, SELFPAY ==
--- NOTE | 2022-04-28 13:30 | SUR.PREOP ---
1330 spoke with pt for pre-op and stated she wasn't going to have due to needing to have a stress test today and surgery to be cancelled for tomorrow
[2022-04-28 15:16] VITALS: BMI 24.0
[2022-04-29] VITALS (20 sets, daily range): BP systolic 110–158; BP diastolic 64–87; PULSE 54–66; RESP 6–16; TEMP 36.4–36.7; O2SAT 92–100
[2022-04-29] MEDS: CELEcoxib 200 mg Capsule 400 MG PO (06:30)
[2022-04-29] MEDS: gabapentin 300 mg Capsule PO (06:30)
[2022-04-29] MEDS: phenazopyridine 100 mg Tablet 200 MG PO (06:30)
--- NOTE | 2022-04-29 06:37 | ANES.PREANE2 ---
Pre-Anesthetic Assessment Height/Weight: Height 1.63 m Weight 63.503 kg Temp Pulse Resp BP Pulse Ox O2 Del Method 97.8 F 54 L 16 131/77 97 04/29/22 06:07 04/29/22 06:07 04/29/22 06:07 04/29/22 06:07 04/29/22 06:07 04/29/22 06:07 Preop Diagnosis: ovarian mass Operation Date: 04/29/22 07:00 Proposed Procedures p Mini laparotomy 26867, bilateral salpingo-oophorectomy 25767,N83.8(Not Applicable) - Ashley Lunsford MD s Salpingo Oophorectomy (Open)(Not Applicable) - Ashley Lunsford MD Familial anesthetic complications: None Was Beta Larry taken within 24 hours: Yes Was Clonidine taken within 24 hours: N/A Last intake: Intake Last Liquid Date 04/28/22 Last Liquid Time 16:00 Last Solid Date 04/28/22 Last Solid Time 16:00 Social No alcohol and No tobacco Exam alert, oriented x 3, clear to auscultation bilaterally and regular rate & rhythm Airway Mallampati: Class II Dentition: false CV/HEM Atrial Fibrillation and Hypertension 12/09 perfusion scan IMPRESSIONS ?1. Normal myocardial perfusion imaging with no evidence of ischemia ?2. LV systolic function is normal 12/09 stress test Conclusion: 1. ? Normal EKG response to Lexiscan infusion 2.? No Lexiscan induced chest pain or cardiac arrhythmia. 3.? Normal blood pressure and heart rate response. 4.? Sestamibi/sestamibi perfusion scan pending; see separate report. 2021 echo CONCLUSIONS ?Normal left ventricular size, systolic function and wall ?thickness, with no regional wall motion abnormalities. Grade ?II/IV diastolic dysfunction, moderately elevated filling ?pressures. Left ventricular ejection fraction is estimated at 65 ?%. ?Normal right ventricular size and systolic function. Mild ?pulmonary hypertension, RVSP 37.1 mmHg. ?Structurally normal trileaflet aortic valve. Mild aortic valve ?regurgitation. No aortic valve stenosis. Anesthetic Plan ASA status: 3 Anesthesia: General Risk of > 500 ml blood loss (7ml/kg in children): No Medications/Allergies Home Medications Medication Instructions Recorded Confirmed Last Taken Type aspirin 325 mg tablet 325 mg PO EVERY OTHER DAY 09/04/21 04/28/22 04/27/22 History multivitamin 1 tab PO DAILY 09/04/21 04/28/22 04/28/22 History polyethylene glycol 3350 17 gram 17 g PO DAILY PRN Constipation 11/01/21 04/29/22 Unknown History oral powder packet (Miralax) ibuprofen 600 mg tablet 600 mg PO Q8H PRN pain #30 tabs 12/05/21 04/28/22 Unknown Rx metoprolol tartrate 25 mg tablet 25 mg PO BID #180 tabs 03/19/22 04/29/22 04/29/22 04:30 Rx furosemide 20 mg tablet 20 mg PO DAILY 04/28/22 04/29/22 2 Days Ago History ~04/27/22 Allergies Allergy/AdvReac Type Severity Reaction Status Date / Time No Known Allergies Allergy Verified 04/29/22 06:29 PFS Anesthesia Medical History Chest pain Chronic cystitis History of bladder cancer History of hematuria Incomplete bladder emptying Lung nodule Palpitations Paroxysmal atrial fibrillation Surgical History S/P cataract surgery S/P ear surgery S/P lateral meniscus repair of right knee Status post surgical removal and fulguration of bladder neoplasm Family History Father Colon cancer Denies family history of Ovarian cancer Diabetes Heart disease Hypercholesteremia Breast cancer Hypertension Uterine cancer Thyroid disease Stroke Social History (Updated 04/24/22 @ 13:12 by Eric Taylor) Smoking and tobacco status: former smoker Alcohol intake: never Current occupational status: retired History of recent travel: No Data Anesthesia Cardiac Studies: Echocardiogram 11/20/21 Sestamibi Stress Test (Cardiology) 11/21/21
[2022-04-29] MEDS: ceFAZolin 2,000 MG in sodium chloride 0.9% (plus) 50 ML 100 MG IV ×3 (07:00→23:51)
--- NOTE | 2022-04-29 07:02 | W.PM.OPSUD ---
Surgery/Procedure H&P Update DATE OF PROCEDURE: April 29, 2022 DATE H&P PERFORMED: 04/25/22 H&P UPDATE INFORMATION: I have reviewed H&P completed within last 30 days, I have examined patient prior to procedure and No changes to prior documentation PREOP DIAGNOSIS: ovarian mass PLANNED PROCEDURE: Operation Date: 04/29/22 07:00 Proposed Procedures p Mini laparotomy 26389, bilateral salpingo-oophorectomy 52636,N83.8(Not Applicable) - Ashley Lunsford MD s Salpingo Oophorectomy (Open)(Not Applicable) - Ashley Lunsford MD Related Problem List Diagnoses (1) Ovarian cystic mass:
--- NOTE | 2022-04-29 08:25 | P.OP_ITS ---
Operative Report Date of procedure: April 29, 2022 Pre-op diagnosis: Preop Diagnosis ovarian mass Post-op diagnosis: same Post-op findings: both tubes and ovaries removed Procedure done: bilateral salpingoophorectomy Specimens removed/disposition: bilateral tubes and ovaries to pathology Surgeon: Ashley Lunsford Anesthesia: General Estimated blood loss (mL): 5 IV fluids (mL): 700 Urine output (mL): 900 Complications: none Findings: normal appearing uterus and left tube and ovary. enlarged, multicystic right ovary and normal appearing tube Condition: stable Disposition: PACU Procedure: The patient was taken to the operating room where general anesthesia was administered and found to be adequate. She was prepped and draped in the normal sterile fashion in the dorsal supine position. A hodgson catheter was placed. A Pfannenstiel skin incision was made and carried down to the underlying layer of fascia. The fascia was nicked in the midline and extended laterally with the Greenberg scissors. The fascia was then tented up and the rectus muscles dissected off sharply. The rectus muscles were in the midline and the abdomen entered bluntly with the digit. This peritoneal incision was extended superiorly and inferiorly with good visualization of the bladder. The O'Mohinder- O'Curry retractor was placed and the bowel packed away. The bladder blade was also placed. The right tube and ovary were elevated out of the pelvis. A window was made medial to the infundibulopelvic ligament and inferior to the fallopian tube and ovary. The infundibulopelvic ligament was clamped, cut and suture-ligated. The cornua of the uterus was also clamped, cut and suture ligated. The right tube and ovary was removed. The procedure was performed the same on the left side. The pelvis was irrigated. There was excellent hemostasis. The O'Mohinder-O'Curry retractor as well as the packing was removed. The peritoneum was closed with 3-0 Monocryl in a running fashion. The fascia was closed with 0 Vicryl in a running fashion with 2 separate sutures overlapping in the midline. The skin was closed with absorbable adalid. The patient tolerated the procedure well. Sponge lap and needle counts were correct x2. She was taken to the recovery room in stable condition.
--- NOTE | 2022-04-29 08:38 | PC.NURSE ---
Patient awake. \oral airway removed
[2022-04-29] MEDS: sodium chloride 0.9% 1,000 ML 30 ML IV (09:19)
[2022-04-29] MEDS: dextrose 5%-lactated ringers 1,000 ML 75 ML IV ×2 (10:24→23:51)
[2022-04-29] MEDS: ketorolac 30 mg/mL INJ IVP ×3 (10:26→20:53)
[2022-04-29] MEDS: ondansetron 2 mg/ML SDV 2 mL 4 MG IVP (11:10)
[2022-04-29 12:47] LABS: Cyto Order Verification No Order
[2022-04-29 12:50] LABS: Basophils % 0.8 %; Eosinophils # 0.3 10^3/uL (0.0-0.8); Eosinophils % 5.1 %; Hematocrit 39.4 % (37.0-47.0); Hemoglobin 12.3 g/dL (11.5-15.3); Lymphocytes # 0.9 10^3/uL (0.8-4.8); Lymphocytes % 18.4 %; Mean Corpuscular HGB Conc 31.2 g/dL (30.0-36.0); Mean Corpuscular Hemoglobin 29.5 pg (28.0-34.0); Mean Corpuscular Volume 94.5 fl (81-99); Mean Platelet Volume 13.4 fL (7.4-10.4); Monocytes # 0.4 10^3/uL (0.2-0.9); Monocytes % 8.4 %; Neutrophils # 3.28 10^3/uL (1.8-7.7); Neutrophils % 66.9 %; Nucleated Red Blood Cells % 0 %; Platelet Count 168 10^3/cmm (130-400); Red Blood Count 4.17 10^6/uL (4.1-5.3); Red Cell Distribution Width 14.8 % (12.1-15.1); White Blood Count 4.9 10^3/uL (4.0-10.0)
[2022-04-29 12:53] LABS: Slide Review Slide Review Perform
[2022-04-29 13:00] LABS: Blood Urea Nitrogen 16 mg/dL (8-23); Carbon Dioxide 27 mmol/L (22-29); Chloride 106 mmol/L (98-107); Creatinine Clr Calc Pharmacy 55.8459; Glucose 66 mg/dL (65-115); Osmolality Calculated 299 mOsm/kg (285-295); Sodium 145 mmol/L (136-145)
--- NOTE | 2022-04-29 14:04 | ANE.PACU2 ---
Inpatient post-anesthesia follow up: Airway intact: Yes Vital signs: Temperature 97.5 F Pulse Rate 64 Respiratory Rate 14 Blood Pressure 148/82 Pulse Oximetry 95 Oxygen Delivery Me thod Room Air Oxygen Flow Rate 8 Fraction of Inspir ed Oxygen Hydration adequate: Yes Nausea and vomiting: No Pain level: 1 Mental status: Baseline
[2022-04-29] MEDS: HYDROcodone-acetaminophen 5-325 mg Tablet PO (14:27)
[2022-04-29] MEDS: metoprolol tartrate 25 mg Tablet PO (18:01)
[2022-04-29] MEDS: docusate sodium 100 mg Capsule PO (18:03)
[2022-04-29] MEDS: FUROsemide 20 mg Tablet PO (18:04)
[2022-04-30] MEDS: ketorolac 30 mg/mL INJ IVP (03:26)
[2022-04-30 03:31] VITALS: BP 137/77; PULSE 50; RESP 15; TEMP 36.8; O2SAT 98
[2022-04-30 05:20] LABS: Hematocrit 33.2 % (37.0-47.0); Hemoglobin 10.7 g/dL (11.5-15.3); Mean Corpuscular HGB Conc 32.2 g/dL (30.0-36.0); Mean Corpuscular Hemoglobin 29.7 pg (28.0-34.0); Mean Corpuscular Volume 92.2 fl (81-99); Mean Platelet Volume 12.8 fL (7.4-10.4); Platelet Count 144 10^3/cmm (130-400); Red Cell Distribution Width 14.4 % (12.1-15.1); White Blood Count 8.4 10^3/uL (4.0-10.0)
--- NOTE | 2022-04-30 08:25 | PM.DCS ---
Discharge Providers Date of Admission: 04/29/22 08:52 Date of Discharge: April 30, 2022 Attending Provider at Admission: Ashley Lunsford MD Attending Provider at Discharge: Ashley Lunsford MD Primary Care Provider: Maribel Mendes MD Diagnoses at Discharge Discharge Diagnosis (1) Ovarian cystic mass: Status: Acute Reason for Visit Reason for Visit: Other noninflammatory disorders of ovary, fallopia Hospital Course Hospital Course The patient was admitted for surgery. she did well postoperatively and was ready for discharge on day #1 Physical Exam Narrative: The patient is doing amazing this morning. she has been up ambulating. She hasn't required anything more than motrin for pain. She is able to void without difficulty and is tolerating a regular diet. She is requesting discharge. Const: COMMON NORMALS: no acute distress, average body habitus, patient oriented x3, no limitations, healthy appearing, alert and well nourished GENERAL APPEARANCE: cooperative, comfortable, well kempt and well developed ORIENTATION/CONSCIOUSNESS: Yes awake, Yes oriented to person, Yes oriented to place and Yes oriented to time Resp: COMMON NORMALS: normal respiratory effort EFFORT & INSPECTION: Yes able to speak in complete sentences GI: COMMON NORMALS: Soft to palpation and non-tender PALPATION: Yes Soft to palpation Extremity: COMMON NORMALS: no calf tenderness Neuro: COMMON NORMALS: patient oriented x3 SENSORIUM/ORIENTATION: Yes alert, Yes oriented to person, Yes oriented to place and Yes oriented to time Psych: APPEARANCE: Yes well kempt Skin: WOUNDS: Yes surgical site (clean/dry/intact) Urinary Catheter Management: La: Cath Placed During This Visit: yes, but has since been removed by the nurse Reason for Continuing Indwelling Catheter: Decision to DC Catheter Urinary Catheter Date of Insertion: 04/29/22 Urinary Catheter Time of Insertion: 07:20 Date Urinary Catheter Removed: 04/30/22 Time Urinary Catheter Discontinued: 05:11 Discharge Data Studies Completed and Pending Pending at discharge Category Date Time Status Urine Culture Routine Lab 04/29/22 07:25 Received Cytology [PTH] Routine Pth 04/29/22 08:12 Received Pathology: Surgical [PTH] Routine Pth 04/29/22 08:20 Received Laboratory Results WBC 8.4 10^3/uL (4.0-10.0) 04/30/22 05:00 RBC 3.60 10^6/uL (4.1-5.3) L 04/30/22 05:00 Hgb 10.7 g/dL (11.5-15.3) L 04/30/22 05:00 Hct 33.2 % (37.0-47.0) L 04/30/22 05:00 MCV 92.2 fl (81-99) 04/30/22 05:00 MCH 29.7 pg (28.0-34.0) 04/30/22 05:00 MCHC 32.2 g/dL (30.0-36.0) 04/30/22 05:00 RDW 14.4 % (12.1-15.1) 04/30/22 05:00 Plt Count 144 10^3/cmm (130-400) 04/30/22 05:00 MPV 12.8 fL (7.4-10.4) H 04/30/22 05:00 Neut % (Auto) 66.9 % 04/29/22 06:30 Lymph % (Auto) 18.4 % 04/29/22 06:30 [place] % (Auto) 8.4 % 04/29/22 06:30 Eos % (Auto) 5.1 % 04/29/22 06:30 Baso % (Auto) 0.8 % 04/29/22 06:30 Neut # (Auto) 3.28 10^3/uL (1.8-7.7) 04/29/22 06:30 Lymph # (Auto) 0.9 10^3/uL (0.8-4.8) 04/29/22 06:30 [place] # (Auto) 0.4 10^3/uL (0.2-0.9) 04/29/22 06:30 Eos # (Auto) 0.3 10^3/uL (0.0-0.8) 04/29/22 06:30 Baso # (Auto) 0.0 10^3/uL (0.0-0.1) 04/29/22 06:30 Nucleated RBC % (auto) 0 % 04/29/22 06:30 Nucleated RBCs # 0.0 /100WBC 04/29/22 06:30 Sodium 145 mmol/L (136-145) 04/29/22 06:30 Potassium 4.0 mmol/L (3.5-5.1) 04/29/22 06:30 Chloride 106 mmol/L (98-107) 04/29/22 06:30 Carbon Dioxide 27 mmol/L (22-29) 04/29/22 06:30 Anion Gap 16.0 (5-19) 04/29/22 06:30 BUN 16 mg/dL (8-23) 04/29/22 06:30 Creatinine 0.7 mg/dL (0.5-0.9) 04/29/22 06:30 GFR Calculation Not Reportable 04/29/22 06:30 Glucose 66 mg/dL (65-115) 04/29/22 06:30 Calculated Osmolality 299 mOsm/kg (285-295) H 04/29/22 06:30 Calcium 9.0 mg/dL (8.5-10.5) 04/29/22 06:30 Vitals Last Vital Signs Temp 98.2 F 04/30/22 03:31 Pulse 50 L 04/30/22 03:31 Resp 15 04/30/22 03:31 BP 137/77 04/30/22 03:31 Pulse Ox 98 04/30/22 03:31 O2 Del Method 04/30/22 03:31 O2 Flow Rate 8 04/29/22 08:40 Discharge Plan Discharge Patient Disposition: Home Condition: Stable Prescriptions: New ibuprofen 800 mg Tablet 800 mg PO Q8H Qty: 30 0RF hydrocodone-acetaminophen 5-325 mg Tablet 1 tab PO Q4H PRN (Reason: Moderate To Severe Pain) Qty: 10 0RF docusate sodium 100 mg Capsule 100 mg PO BID Qty: 60 0RF Continued polyethylene glycol 3350 [Miralax] 17 gram powder in packet 17 g PO DAILY PRN (Reason: Constipation) metoprolol tartrate 25 mg tablet 25 mg PO BID Qty: 180 3RF multivitamin Tablet 1 tab PO DAILY aspirin 325 mg tablet 325 mg PO EVERY OTHER DAY ibuprofen 600 mg tablet 600 mg PO Q8H PRN (Reason: pain) Qty: 30 0RF furosemide 20 mg tablet 20 mg PO DAILY Rx Instructions: TAKE 1 TABLET BY MOUTH ONCE DAILY NEEDED FOR EDEMA Discharge Orders: Discharge Order (Routine); Ordered 04/30/22 Ordered By: Ashley Lunsford Referrals: Ashley Lunsford MD [Physician] - 05/05/22 4:00 pm Discharge Diet: Usual diet Discharge Activity: Limit activity as instructed Patient Instructions: Hydrocodone/Acetaminophen (By mouth), Ibuprofen (By mouth), Salpingectomy (DC), General Mass Excision (DC), OB Food/Drug Interaction Guide, Opioid Safety Discharge Attestations Time Spent in Discharge Care*: less than 30 min Quality Metrics Clinical Quality Measures [ No reported AMI, CVA or VTE this stay] Coding Level of Care Code Acute Chg FW DC note Diagnoses Ovarian cystic mass N83.209
[2022-04-30 09:15] VITALS: BP 123/74; PULSE 51; RESP 18; TEMP 37; O2SAT 100
== END 2022-04-30 09:16 | disposition home or self-care (01) | DRG 743 ==
LOC: OBGYN 08:53
PROVIDERS: Admitting Provider Obstetrics & Gynecology; PCP Family Medicine; Visit Provider Obstetrics & Gynecology
PROC: 0UT20ZZ Resection of Bilateral Ovaries, Open Approach (ICD-10-PCS; principal; 2022-04-29 07:00)
PROC: 0UT20ZZ Resection of Bilateral Ovaries, Open Approach (ICD-10-PCS; CPT 58720; 2022-04-29 07:00)
DX: N83.202 Unspecified ovarian cyst, left side (principal); N83.201 Unspecified ovarian cyst, right side
CPT/HCPCS: 36415; 51702; 80048; 85025; 85027; 87086; 88108; 88305; J0690; J1100; J1170; J1885; J2405; J2704; J3010; J3490; J7030; J7121

== ENCOUNTER → 2022-06-26 12:01 | Outpatient (BNVA) | payer MEDICARE, SELFPAY | PROVIDERS: PCP Family Medicine; Visit Provider Internal Medicine Cardiovascular Disease | DX: I95.1 Orthostatic hypotension (principal); I48.0 Paroxysmal atrial fibrillation; Z79.82 Long term (current) use of aspirin | CPT/HCPCS: 99213 ==

== ENCOUNTER → 2022-11-06 08:13 | Outpatient (BNVA) | payer MEDICARE, SELFPAY | PROVIDERS: PCP Family Medicine; Visit Provider Podiatrist Foot & Ankle Surgery | DX: I73.9 Peripheral vascular disease, unspecified (principal); L60.3 Nail dystrophy | CPT/HCPCS: 11721; 99203 ==

== ENCOUNTER 2022-11-14 18:08 | Emergency (ER) | payer MEDICARE, SELFPAY ==
[2022-11-14 18:13] VITALS: BP 100/65; PULSE 60; RESP 16; TEMP 36.6; O2SAT 100; BMI 24.3
[2022-11-14 18:45] VITALS: BP 127/75; PULSE 58; RESP 19; O2SAT 99
--- NOTE | 2022-11-14 18:54 | PC.NURSE ---
Report received from Lynette RN
--- NOTE | 2022-11-14 19:02 | CTR_ITS ---
PROCEDURE INFORMATION: Exam: CT Head Without Contrast Exam date and time: 11/14/2022 7:43 PM Age: 77 years old Clinical indication: Patient HX: Dizziness with lethargy. Bradycardic on monitor. TECHNIQUE: Imaging protocol: Computed tomography of the head without contrast. Radiation optimization: All CT scans at this facility use at least one of these dose optimization techniques: automated exposure control; mA and/or kV adjustment per patient size (includes targeted exams where dose is matched to clinical indication); or iterative reconstruction. REPORTING DATA: Count of CT and Cardiac NM exams in prior 12 months: This patient has received 3 known CTs and 0 known cardiac nuclear medicine studies in the 12 months prior to the current study. COMPARISON: CT head wo con* [id number] 11/30/2018 11:43 AM RADIATION DOSE METRICS: Total DLP (mGy-cm): 990.78 FINDINGS: Brain: No hemorrhage. No edema. Moderate diffuse cerebral atrophy. 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 No mass effect. Cerebral ventricles: No ventriculomegaly. Paranasal sinuses: Visualized sinuses are unremarkable. No fluid levels. Mastoid air cells: Visualized mastoid air cells are well aerated. Bones/joints: Unremarkable. No acute fracture. Soft tissues: Unremarkable. CT/CT head wo con* [id number] IMPRESSION: No acute intracranial abnormality.
--- NOTE | 2022-11-14 19:02 | XRR_ITS ---
PROCEDURE INFORMATION: Exam: XR Chest Exam date and time: 11/14/2022 7:07 PM Age: 77 years old Clinical indication: Pain; Chest pressure; Additional info: Dizziness TECHNIQUE: Imaging protocol: Radiologic exam of the chest. Views: 1 view. COMPARISON: CR XR chest 1V portable [id number] 03/08/2022 6:14 AM FINDINGS: Lungs: Hyperinflated, emphysematous changes of the lungs. No consolidation. Pleural spaces: Unremarkable. No pleural effusion. No pneumothorax. Heart/Mediastinum: Similar mild cardiomegaly. Bones/joints: Unremarkable. XR/XR chest 1V portable [id number] IMPRESSION: Stable exam, no acute findings.
--- NOTE | 2022-11-14 19:04 | ECG_ITS ---
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 Measurements Intervals [place] Rate: 56 P: 57 CT: 166 QRS: -27 QRSD: 85 T: 32 QT: 394 QTc: 383 Interpretive Statements SINUS BRADYCARDIA WITH OCCASIONAL SUPRAVENTRICULAR PREMATURE COMPLEXES LOW QRS VOLTAGE IN PRECORDIAL LEADS [QRS DEFLECTION < 1.0 mV IN CHEST LEADS] POSSIBLE ANTERIOR MYOCARDIAL INFARCTION , PROBABLY OLD [30 ms Q WAVE IN V3/V4, OR R < 0.2 mV IN V4] Compared to ECG 03/08/2022 06:55:41 Sinus arrhythmia no longer present Left-axis deviation no longer present Myocardial infarct finding still present Electronically Signed On 11-17-2022 8:35:00 CDT by Ren Baldwin M.D. [id number]
--- NOTE | 2022-11-14 19:26 | W.ED.GENADLT ---
HPI - General Adult General: Chief complaint: General Medical Stated complaint: low bp Time Seen by Provider: 11/14/22 18:38 Source: patient History of Present Illness: 77-year-old lady brought in by family from urgent care. She presented there because of increased dizziness the last 4 days or so. Evidently, there she had a blood pressure of 70s over 50s. Here her blood pressure is normal. She was symptomatic at the time her blood pressure was low she says. She is still dizzy, but somewhat less symptomatic now. Dizziness is described as wooziness , and feeling like she might fall. It is not vertiginous. Onset (ago): hour(s) Associated symptoms: Reports chest pain, decreased appetite, dyspnea, short of breath and weakness (Generalized); Deny confusion, cough, fevers/chills, headache(s) or vomiting Review of Systems Card: Reports: chest pain Resp: Reports: dyspnea GI: Denies: abdominal pain or vomiting Neuro: Denies: headache(s) or confusion PFSH ED PFSH: Medical History Chest pain Chronic cystitis History of bladder cancer History of hematuria Incomplete bladder emptying Lung nodule Ovarian cystic mass Palpitations Paroxysmal atrial fibrillation Surgical History S/P cataract surgery S/P ear surgery S/P lateral meniscus repair of right knee Status post surgical removal and fulguration of bladder neoplasm Family History Father Colon cancer Denies family history of Ovarian cancer Diabetes Heart disease Hypercholesteremia Breast cancer Hypertension Uterine cancer Thyroid disease Stroke Social History Alcohol intake: never Substance/Drug Use: unknown Physical Exam Const: COMMON NORMALS: no acute distress GENERAL APPEARANCE: cooperative; not ill appearing and not frail appearing HENMT: COMMON NORMALS: normocephalic, atraumatic and Normal external nose present HEAD & SCALP: normocephalic and atraumatic FACE & SINUS: normal facial exam and face symmetric NOSE: Normal external nose present Eye: COMMON NORMALS: Equal, round and reactive pupils present and EOMs intact bilaterally PUPIL: Yes Equal, round and reactive pupils present Neck/C-Spine: GENERAL: Yes trachea midline Chest: CHEST: Yes Symmetrical chest wall rise Resp: COMMON NORMALS: normal respiratory effort, No retractions, No use of accessory muscles and clear to auscultation bilaterally AUSCULTATION: clear to auscultation bilaterally Cardio: COMMON NORMALS: regular rate and regular rhythm RATE: regular rate RHYTHM: regular rhythm GI: COMMON NORMALS: Normal to inspection, nondistended, normoactive bowel sounds present Extremity: COMMON NORMALS: no pedal edema Neuro: [place] COMA SCALE: document GCS findings [place] coma scale eye opening: Spontaneous [place] coma scale verbal response: Orientated [place] coma scale motor response: Obey commands [place] coma scale total score: 15 CRANIAL NERVES: Yes CN normal except as noted COORDINATION/BALANCE: [id number] test normal and [id number]-[id number] test normal SPEECH: speech normal SENSORY EXAM: Yes extremities (intact) MOTOR EXAM: Pronator motor function not present and Normal motor muscle tone present throughout COORDINATION: [id number] test normal and xfmz-[id number] test normal Psych: COMMON NORMALS: mental status grossly normal, cooperative and speech normal SPEECH: Yes normal speech Skin: COMMON NORMALS: no rashes or lesions noted GENERAL SKIN EXAM: no rashes or lesions noted Course Vital Signs: Vital signs: Vital Signs Temperature 97.8 F 11/14/22 18:13 Pulse Rate 64 11/14/22 22:43 Respiratory Rate 11 L 11/14/22 22:43 Blood Pressure 165/90 11/14/22 22:43 Pulse Oximetry 97 11/14/22 22:43 Oxygen Delivery Me thod Room Air 11/14/22 21:25 MDM - General Adult Medical Decision Making 77-year-old female who is generally weak and dizzy. The patient has been resting comfortably in the ER. Neurologically she is intact without signs of stroke including posterior circulation signs. Her heart rate has been rather low, dipping into the low 50s. Blood pressure has remained normal to slightly hypertensive, never hypotensive here. She is given a liter of fluid. Her CBC is normal. Her creatinine is 1.1, otherwise BMP is not remarkable. Urinalysis shows 2+ leukocyte esterase with greater than 100 whites. It is mildly contaminated, but likely infected given those numbers. Head CT is negative. Chest x-ray is negative. EKG revealed no discrete heart block, no ST wave changes. First troponin was elevated, but second troponin did not rise, in fact it fell to some degree. The patient is experiencing no chest pain currently. With these findings, we will treat urinary tract infection. We will have her half her dose of metoprolol given the history of bradycardia with decreased blood pressure. If still symptomatic she will return. Outpatient follow-up closely. She does get frequent urinary tract infections, and takes amoxicillin for prophylaxis. She will stop this while on cefdinir. Lab Data 11/14/22 19:30 11/14/22 19:30 Radiology Impressions Chest X-Ray 11/14/22 19: IMPRESSION: Stable exam, no acute findings. Head CT 11/14/22 19: IMPRESSION: No acute intracranial abnormality. Laboratory Results WBC 4.8 10^3/uL (4.0-10.0) 11/14/22 19:30 RBC 3.98 10^6/uL (4.1-5.3) L 11/14/22 19: Hgb 11.6 g/dL (11.5-15.3) 11/14/22 19:30 Hct 37.2 % (37.0-47.0) 11/14/22 19: MCV 93.5 fl (81-99) 11/14/22 19: MCH 29.1 pg (28.0-34.0) 11/14/22 19: MCHC 31.2 g/dL (30.0-36.0) 11/14/22 19: RDW 14.7 % (12.1-15.1) 11/14/22 19: Plt Count 167 10^3/cmm (130-400) 11/14/22 19:30 MPV 12.3 fL (7.4-10.4) H 11/14/22 19:30 Neut % (Auto) 62.9 % 11/14/22 19: Lymph % (Auto) 23.9 % 11/14/22 19:30 [place] % (Auto) 9.7 % 11/14/22 19:30 Eos % (Auto) 2.9 % 11/14/22 19:30 Baso % (Auto) 0.4 % 11/14/22 19: Neut # (Auto) 2.99 10^3/uL (1.8-7.7) 11/14/22 19:30 Lymph # (Auto) 1.1 10^3/uL (0.8-4.8) 11/14/22 19:30 [place] # (Auto) 0.5 10^3/uL (0.2-0.9) 11/14/22 19:30 Eos # (Auto) 0.1 10^3/uL (0.0-0.8) 11/14/22 19:30 Baso # (Auto) 0.0 10^3/uL (0.0-0.1) 11/14/22 19:30 Nucleated RBC % (auto) 0 % 11/14/22 19:30 Nucleated RBCs # 0.0 /100WBC 11/14/22 19:30 Sodium 141 mmol/L (136-145) 11/14/22 19:30 Potassium 4.0 mmol/L (3.5-5.1) 11/14/22 19:30 Chloride 104 mmol/L (98-107) 11/14/22 19:30 Carbon Dioxide 29 mmol/L (22-29) 11/14/22 19:30 Anion Gap 12.0 (5-19) 11/14/22 19:30 BUN 19 mg/dL (8-23) 11/14/22 19:30 Creatinine 1.1 mg/dL (0.5-0.9) H 11/14/22 19:30 GFR Calculation Not Reportable 11/14/22 19:30 Glucose 97 mg/dL (65-115) 11/14/22 19:30 Calculated Osmolality 294 mOsm/kg (285-295) 11/14/22 19:30 Calcium 9.3 mg/dL (8.5-10.5) 11/14/22 19:30 Total Bilirubin 0.3 mg/dL (0.15-1.2) 11/14/22 19:30 AST 22 U/L (0-32) 11/14/22 19:30 ALT 11 U/L (0-33) 11/14/22 19:30 Alkaline Phosphatase 74 U/L (35-105) 11/14/22 19:30 Troponin T Baseline 50 ng/L (0-10) H 11/14/22 19:30 Troponin T 120 Minute 42.64 ng/L (0-10) H 11/14/22 21:26 Delta Troponin T -7.36 ABS# (0-10) L 11/14/22 21:26 C-Reactive Protein 3.0 mg/L (0.0-4.9) 11/14/22 19:30 NT-Pro-B Natriuret Pep 381 pg/mL (0-450) 11/14/22 19:30 Total Protein 6.6 g/dL (6.6-8.7) 11/14/22 19:30 Albumin 4.0 g/dL (3.5-5.2) 11/14/22 19: Globulin 2.6 g/dL (1.3-4.6) 11/14/22 19: TSH 3.04 uIU/mL (0.27-4.20) 11/14/22 19:30 Urine Color Yellow (Yellow) 11/14/22 21:43 Urine Appearance Hazy (CLEAR) A 11/14/22 21:43 Urine pH 6 (5-7) 11/14/22 21:43 Ur Specific [place] 1.015 (1.005-1.030) 11/14/22 21:43 Urine Protein Trace (Negative) 11/14/22 21:43 Urine Glucose (UA) Norm (Normal) 11/14/22 21:43 Urine Ketones Negative (Negative) 11/14/22 21:43 Urine Blood Trace (Negative) H 11/14/22 21:43 Urine Nitrate Negative (Negative) 11/14/22 21:43 Urine Bilirubin Neg (Negative) 11/14/22 21:43 Urine Urobilinogen Norm mg/dL (Negative) 11/14/22 21:43 Ur Leukocyte Esterase 2+ (Negative) H 11/14/22 21:43 Urine RBC 0-4 /hpf (0-2) H 11/14/22 21:43 Urine WBC >100 /hpf (0-5) H 11/14/22 21:43 Ur Squamous Epith Cells 15-25 /hpf (0-5) H 11/14/22 21:43 Amorphous Sediment Not Reportable 11/14/22 21:43 Urine Bacteria 1+ /hpf (NONE) H 11/14/22 21:43 Urine Mucus Trace /hpf 11/14/22 21:43 Discharge Plan Discharge Patient Disposition: Home Clinical Impression: Bradycardia, Acute UTI Condition: Stable Prescriptions: New cefdinir 300 mg capsule 300 mg PO BID Qty: 14 0RF No Action methenamine hippurate 1 gram tablet 1 g PO BID docusate sodium 100 mg capsule 100 mg PO BID PRN polyethylene glycol 3350 [Miralax] 17 gram powder in packet 17 g PO DAILY PRN (Reason: Constipation) metoprolol tartrate 25 mg tablet 25 mg PO BID Qty: 180 3RF furosemide 20 mg tablet 20 mg PO DAILY Qty: 90 0RF Rx Instructions: TAKE 1 TABLET BY MOUTH ONCE DAILY NEEDED FOR EDEMA aspirin 325 mg tablet 325 mg PO EVERY OTHER DAY ibuprofen 800 mg Tablet 800 mg PO Q8H Qty: 30 0RF Discharge Orders: Discharge ED (Routine); Ordered 11/14/22 Ordered By: Madhav Villeda Referrals: Maribel Mendes MD [Primary Care Provider] - 1-3 days Patient Instructions: Bradycardia (ED), Urinary Tract Infection in Older Adults (ED) Activity Restrictions/Additional Instructions: Stop your amoxicillin while on antibiotics prescribed for your urinary tract infection. You may return to the amoxicillin once you are finished with the antibiotic prescribed. Half your metoprolol dosage daily. Monitor your heart rate and blood pressure. You may take the other half of the dosage if you experience heart racing, fast heart rate, etc. Monitor your blood pressure twice daily, and report numbers to your doctor. Follow-up with your doctor next week. Return for worsening weakness, chest discomfort, shortness of breath, any other concerning symptoms. Coding Level of Care Code ED Knockout Machine Operator for Renea Chakraborty
[2022-11-14] MEDS: sodium chloride 0.9% 1,000 ML 999 ML IV (19:36)
[2022-11-14 19:37] LABS: Basophils % 0.4 %; Eosinophils # 0.1 10^3/uL (0.0-0.8); Eosinophils % 2.9 %; Hematocrit 37.2 % (37.0-47.0); Hemoglobin 11.6 g/dL (11.5-15.3); Lymphocytes # 1.1 10^3/uL (0.8-4.8); Lymphocytes % 23.9 %; Mean Corpuscular HGB Conc 31.2 g/dL (30.0-36.0); Mean Corpuscular Hemoglobin 29.1 pg (28.0-34.0); Mean Corpuscular Volume 93.5 fl (81-99); Mean Platelet Volume 12.3 fL (7.4-10.4); Monocytes # 0.5 10^3/uL (0.2-0.9); Monocytes % 9.7 %; Neutrophils # 2.99 10^3/uL (1.8-7.7); Neutrophils % 62.9 %; Nucleated Red Blood Cells % 0 %; Platelet Count 167 10^3/cmm (130-400); Red Blood Count 3.98 10^6/uL (4.1-5.3); Red Cell Distribution Width 14.7 % (12.1-15.1); White Blood Count 4.8 10^3/uL (4.0-10.0)
[2022-11-14 20:13] LABS: Alanine Aminotransferase 11 U/L (0-33); Alkaline Phosphatase 74 U/L (35-105); Aspartate Amino Transferase 22 U/L (0-32); Blood Urea Nitrogen 19 mg/dL (8-23); Calcium 9.3 mg/dL (8.5-10.5); Carbon Dioxide 29 mmol/L (22-29); Chloride 104 mmol/L (98-107); Globulin 2.6 g/dL (1.3-4.6); Glucose 97 mg/dL (65-115); NT Pro B Type Natriuretic Pept 381 pg/mL (0-450); Osmolality Calculated 294 mOsm/kg (285-295); Sodium 141 mmol/L (136-145); Thyroid Stimulating Hormone 3.04 uIU/mL (0.27-4.20); Total Bilirubin 0.3 mg/dL (0.15-1.2); Total Protein 6.6 g/dL (6.6-8.7)
[2022-11-14 20:28] LABS: Troponin(5th) Baseline 50 ng/L (0-10)
--- NOTE | 2022-11-14 21:04 | ECG_ITS ---
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 Measurements Intervals [place] Rate: 51 P: 88 [place]: 165 QRS: -12 QRSD: 86 T: 31 QT: 430 QTc: 398 Interpretive Statements SINUS BRADYCARDIA LOW QRS VOLTAGE IN PRECORDIAL LEADS [QRS DEFLECTION < 1.0 mV IN CHEST LEADS] POSSIBLE ANTERIOR MYOCARDIAL INFARCTION , PROBABLY OLD [30 ms Q WAVE IN V3/V4, OR R < 0.2 mV IN V4] Compared to ECG 11/14/2022 19:53:27 No significant changes Electronically Signed On 11-17-2022 8:38:29 CDT by Ren Baldwin M.D. [id number]
[2022-11-14 21:25] VITALS: BP 153/101; PULSE 59; RESP 12; O2SAT 98
[2022-11-14 21:49] LABS: Troponin 5 2HR 42.64 ng/L (0-10)
[2022-11-14 21:58] LABS: Troponin 5 2HR Delta -7.36 ABS# (0-10)
[2022-11-14 22:05] LABS: Protein Urine Trace (Negative); Specific Gravity, Urine 1.015 (1.005-1.030); Urine Appearance Hazy (CLEAR); Urine Color Yellow (Yellow); pH Urine 6 (5-7)
[2022-11-14 22:06] LABS: Add Urine Microscopic? YES; Bilirubin Urine Neg (Negative); Blood Urine Trace (Negative); Glucose Urine UA Norm (Normal); Ketones Urine Negative (Negative); Leukocyte Esterase Urine 2+ (Negative); Nitrate Urine Negative (Negative); Urobilinogen Urine Norm (Negative)
[2022-11-14 22:07] LABS: Bacteria Urine 1+ /hpf; RBC Urine 0-4 /hpf (0-2); Squamous Epithelial Cell Urine 15-25 /hpf (0-5); WBC Urine >100 /hpf (0-5)
[2022-11-14 22:09] LABS: Mucus Urine TRACE /hpf
[2022-11-14] MEDS: cefdinir 300 MG CAPSULE PO (22:41)
[2022-11-14 22:43] VITALS: BP 165/90; PULSE 64; RESP 11; O2SAT 97
== END 2022-11-14 22:54 | disposition home or self-care (01) ==
PROVIDERS: Emergency Provider Emergency Medicine; PCP Family Medicine
DX: N39.0 Urinary tract infection, site not specified (principal); R00.1 Bradycardia, unspecified; I48.0 Paroxysmal atrial fibrillation; Z79.899 Other long term (current) drug therapy; Z79.82 Long term (current) use of aspirin
CPT/HCPCS: 36415; 70450; 71045; 80053; 81001; 83880; 84443; 84484; 85025; 86140; 93005; 99285; J7030

== ENCOUNTER → 2022-12-04 07:53 | Outpatient (BNVA) | payer MEDICARE, SELFPAY | PROVIDERS: PCP Family Medicine; Visit Provider Family Medicine | DX: Z13.1 Encounter for screening for diabetes mellitus (principal); I48.0 Paroxysmal atrial fibrillation; I73.9 Peripheral vascular disease, unspecified; N30.20 Other chronic cystitis without hematuria; R41.3 Other amnesia; Z86.73 Personal history of transient ischemic attack (TIA), and cerebral infarction without residual deficits; Z13.6 Encounter for screening for cardiovascular disorders | CPT/HCPCS: 80053; 80061; 81003; 82607; 83036; 84443; 85025; 86592; 87086 ==

== ENCOUNTER 2022-12-05 03:32 | Emergency (ER) | payer MEDICARE, SELFPAY ==
[2022-12-05 03:39] VITALS: BP 111/73; PULSE 121; RESP 30; TEMP 36.9; O2SAT 98; BMI 23.7
--- NOTE | 2022-12-05 03:58 | XRR_ITS ---
PROCEDURE INFORMATION: Exam: XR Chest Exam date and time: 12/05/2022 4:02 AM Age: 77 years old Clinical indication: Chest pressure; Patient HX: C/O chest pain with tachycardia. History of afib rvr. ; Additional info: Palpitation TECHNIQUE: Imaging protocol: Radiologic exam of the chest. Views: 1 view. COMPARISON: CR (CHEST, ) 11/14/2022 7:07 PM FINDINGS: Lungs: Unremarkable. No consolidation. Pleural spaces: Unremarkable. No pleural effusion. No pneumothorax. Heart/Mediastinum: Unremarkable. No cardiomegaly. Vasculature: Advanced diffuse vascular calcification noted. Bones/joints: Unremarkable. XR/XR chest 1V portable [id number] IMPRESSION: No acute findings.
--- NOTE | 2022-12-05 04:00 | ECG_ITS ---
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 Measurements Intervals [place] Rate: 130 P: 0 [place]: 0 QRS: -20 QRSD: 67 T: 41 QT: 285 QTc: 420 Interpretive Statements ATRIAL FIBRILLATION WITH RAPID VENTRICULAR RESPONSE LOW QRS VOLTAGE IN PRECORDIAL LEADS [QRS DEFLECTION < 1.0 mV IN CHEST LEADS] MODERATE ST DEPRESSION [0.05+ mV ST DEPRESSION] Compared to ECG 11/14/2022 21:17:55 ST (T wave) deviation now present Sinus bradycardia no longer present Myocardial infarct finding no longer present Electronically Signed On 12-05-2022 7:36:17 CDT by Ren Baldwin M.D. [id number]
[2022-12-05 04:05] LABS: Basophils % 0.5 %; Eosinophils # 0.3 10^3/uL (0.0-0.8); Eosinophils % 4.4 %; Hematocrit 39.4 % (37.0-47.0); Hemoglobin 12.4 g/dL (11.5-15.3); Lymphocytes # 1.1 10^3/uL (0.8-4.8); Lymphocytes % 19.2 %; Mean Corpuscular HGB Conc 31.5 g/dL (30.0-36.0); Mean Corpuscular Hemoglobin 29.5 pg (28.0-34.0); Mean Corpuscular Volume 93.8 fl (81-99); Mean Platelet Volume 12.6 fL (7.4-10.4); Monocytes # 0.5 10^3/uL (0.2-0.9); Monocytes % 8.4 %; Neutrophils # 3.78 10^3/uL (1.8-7.7); Neutrophils % 67.3 %; Nucleated Red Blood Cells % 0 %; Platelet Count 171 10^3/cmm (130-400); White Blood Count 5.6 10^3/uL (4.0-10.0)
[2022-12-05] MEDS: dilTIAZem 5 mg/mL SDV 5 mL 10 MG IVP (04:06)
[2022-12-05] MEDS: sodium chloride 0.9% 500 ML IV (04:08)
--- NOTE | 2022-12-05 04:18 | ED_ITS ---
HPI - Arrhythmia/Palpitations General: Chief Complaint: Arrhythmia/Palpitations Stated Complaint: irregular heart rate Time Seen by Provider: 12/05/22 03:57 History of Present Illness: 77-year-old female with a history of chronic UTI and paroxysmal atrial fibrillation without anticoagulation(patient's choice per previous record). She presents emergency room today with heart palpitation and fast heart rate that started around 1 AM while she was sleeping. Upon present emergency room patient was found to be in atrial fibrillation with RVR. With heart rate of around 130 bpm. Patient denies any chest pain, nausea, vomiting, blurry vision or change in vision. No leg swelling or calf tenderness. Associated symptoms: Deny syncope Review of Systems General: Reports: 10 or more systems reviewed and unremarkable except in HPI and below Card: Reports: palpitations and irregular heart rhythm; Denies: chest pain, swelling of feet/ankles, lightheadedness, syncope, dyspnea on exertion, orthopnea or leg pain with exertion Resp: Denies: dyspnea, productive cough, non-productive cough, wheezing, str idor, pain on inspiration, change in phlegm color, hemoptysis or chest congestion PFSH ED PFSH: Medical History (Updated 12/05/22 @ 04:44 by Greta Jade MD) Chest pain Chronic cystitis History of bladder cancer History of hematuria Incomplete bladder emptying Lung nodule Ovarian cystic mass Palpitations Paroxysmal atrial fibrillation Surgical History (Updated 12/04/22 @ 08:45 by Ying Bonilla MD) History of cataract removal with insertion of prosthetic lens History of ear surgery History of lateral meniscus repair of right knee History of right salpingo-oophorectomy Status post surgical removal and fulguration of bladder neoplasm Family History (Updated 12/04/22 @ 08:51 by Ying Bonilla MD) Father Colon cancer Sister Multiple myeloma Denies family history of Ovarian cancer Diabetes Dementia Heart disease Hypercholesteremia Breast cancer Hypertension Uterine cancer Thyroid disease Stroke Social History (Updated 12/04/22 @ 08:55 by Ying Bonilla MD) Smoking and tobacco status: former smoker Quit status (tobacco): has quit using tobacco Year quit tobacco: 2019 Alcohol intake: never Household members: none Number of children: 1 Number of grandchildren: 1 Current occupational status: retired 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 Joyce/Qu[employer]: [employer] Special joyce needs: Yes Details: 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 for final right Agree to transfusion: Yes Physical Exam Const: COMMON NORMALS: no acute distress, average body habitus, patient oriented x3, no limitations, healthy appearing, alert and well nourished Chest: COMMONS NORMALS: normal inspection of the chest, normal palpation of entire chest wall, normal inspection of the breasts and normal palpation of the breasts Breast/axilla inspection: Yes normal inspection of the breasts BREAST/AXILLA PALPATION: Yes normal palpation of the breasts Cardio: PALPATION: normal PMI RATE: tachycardic RHYTHM: abnormal rhythm irregularly irregular GI: COMMON NORMALS: Normal to inspection, nondistended, normoactive bowel sounds present, Soft to palpation, non-tender, No hepatosplenomegaly present, no masses and no bruits PALPATION: Yes Soft to palpation and Yes No hepatosplenomegaly present Extremity: COMMON NORMALS: normal to inspection, full ROM, capillary refill normal, no joint enlargement, no clubbing, cyanosis or edema, no calf tenderness and no pedal edema Neuro: COMMON NORMALS: patient oriented x3 SENSORIUM/ORIENTATION: Yes alert Psych: COMMON NORMALS: mental status grossly normal, Normal thought process present, cooperative, normal affect, speech normal, activity/motor behavior normal, denies hallucinations, denies homicidal ideation and denies suicidal ideation SPEECH: Yes normal speech THOUGHT PROCESS: Normal thought process present Skin: COMMON NORMALS: no rashes or lesions noted, no wounds, turgor normal, no jaundice, no petechiae and no mottling GENERAL SKIN EXAM: no rashes or lesions noted and turgor normal Course Reevaluation(s): Reevaluation #1: At 4:30 AM patient reassessed at this time heart rate has improved significantly, pressures improved significantly and patient without any acute distress. Patient be discharged home and close follow-up with Dr. Pino recommended Vital Signs: Vital signs: Vital Signs Temperature 98.4 F 12/05/22 03:39 Pulse Rate 121 H 12/05/22 03:39 Respiratory Rate 30 H 12/05/22 03:39 Blood Pressure 111/73 12/05/22 03:39 Pulse Oximetry 98 12/05/22 03:39 Oxygen Delivery Me thod Room Air 12/05/22 03:39 MDM - Arrhythmia/Palpitations Medical Decision Making Patient was made comfortable emergency room. Patient had extensive work-up done including CBC, CMP, magnesium and chest x-ray. I discussed the lab finding with patient and family. I was able to reviewed past medical history and patient's current medication list. Differential Diagnosis Likely palpitations, anxiety, artial fibrillation, artial flutter, ventricular premature beats, supraventricular tachycardia, ventricular tachycardia and WPW Lab Data 12/05/22 03:50 12/05/22 03:50 Radiology Impressions Chest X-Ray 12/05/22 03:58 IMPRESSION: No acute findings. Laboratory Results WBC 5.6 10^3/uL (4.0-10.0) 12/05/22 03:50 RBC 4.20 10^6/uL (4.1-5.3) 12/05/22 03:50 Hgb 12.4 g/dL (11.5-15.3) 12/05/22 03:50 Hct 39.4 % (37.0-47.0) 12/05/22 03:50 MCV 93.8 fl (81-99) 12/05/22 03:50 MCH 29.5 pg (28.0-34.0) 12/05/22 03:50 MCHC 31.5 g/dL (30.0-36.0) 12/05/22 03:50 RDW 15.0 % (12.1-15.1) 12/05/22 03:50 Plt Count 171 10^3/cmm (130-400) 12/05/22 03:50 MPV 12.6 fL (7.4-10.4) H 12/05/22 03:50 Neut % (Auto) 67.3 % 12/05/22 03:50 Lymph % (Auto) 19.2 % 12/05/22 03:50 [place] % (Auto) 8.4 % 12/05/22 03:50 Eos % (Auto) 4.4 % 12/05/22 03:50 Baso % (Auto) 0.5 % 12/05/22 03:50 Neut # (Auto) 3.78 10^3/uL (1.8-7.7) 12/05/22 03:50 Lymph # (Auto) 1.1 10^3/uL (0.8-4.8) 12/05/22 03:50 [place] # (Auto) 0.5 10^3/uL (0.2-0.9) 12/05/22 03:50 Eos # (Auto) 0.3 10^3/uL (0.0-0.8) 12/05/22 03:50 Baso # (Auto) 0.0 10^3/uL (0.0-0.1) 12/05/22 03:50 Nucleated RBC % (auto) 0 % 12/05/22 03:50 Nucleated RBCs # 0.0 /100WBC 12/05/22 03:50 Sodium 143 mmol/L (136-145) 12/05/22 03:50 Potassium 4.2 mmol/L (3.5-5.1) 12/05/22 03:50 Chloride 105 mmol/L (98-107) 12/05/22 03:50 Carbon Dioxide 28 mmol/L (22-29) 12/05/22 03:50 Anion Gap 14.2 (5-19) 12/05/22 03:50 BUN 27 mg/dL (8-23) H 12/05/22 03:50 Creatinine 1.0 mg/dL (0.5-0.9) H 12/05/22 03:50 GFR Calculation Not Reportable 12/05/22 03:50 Glucose 114 mg/dL (65-115) 12/05/22 03:50 Calculated Osmolality 302 mOsm/kg (285-295) H 12/05/22 03:50 Calcium 9.5 mg/dL (8.5-10.5) 12/05/22 03:50 Magnesium 2.0 mg/dL (1.7-2.3) 12/05/22 03:50 Total Bilirubin 0.3 mg/dL (0.15-1.2) 12/05/22 03:50 AST 18 U/L (0-32) 12/05/22 03:50 ALT 13 U/L (0-33) 12/05/22 03:50 Alkaline Phosphatase 77 U/L (35-105) 12/05/22 03:50 Troponin T Baseline 31 ng/L (0-10) H 12/05/22 03:50 NT-Pro-B Natriuret Pep 626 pg/mL (0-450) H 12/05/22 03:50 Total Protein 6.3 g/dL (6.6-8.7) L 12/05/22 03:50 Albumin 4.1 g/dL (3.5-5.2) 12/05/22 03:50 Globulin 2.2 g/dL (1.3-4.6) 12/05/22 03:50 TSH 3.05 uIU/mL (0.27-4.20) 12/05/22 03:50 EKG Data EKG 1: Interpretation: Atrial fibrillation with RVR with rate of [address] changes Other EKG comments: Chest X-Ray 12/05/22 03:58 IMPRESSION: No acute findings. Critical Care Time Critical Care Time: Critical Care Time: Yes Total Critical Care Time: 45 Attestation: Time spent treating patient and reexamined patient after multiple treatment. Time spent reviewing old labs and medical records. Time spent discussing patient with family members. Patient was given IV Cardizem and IV fluid. Discharge Plan Discharge Patient Disposition: Home Clinical Impression: Atrial fibrillation with rapid ventricular response Condition: Stable Prescriptions: No Action metoprolol tartrate 25 mg tablet 25 mg PO BID Qty: 180 3RF furosemide 20 mg tablet 20 mg PO DAILY Qty: 90 0RF Rx Instructions: TAKE 1 TABLET BY MOUTH ONCE DAILY NEEDED FOR EDEMA Discharge Orders: Discharge ED (Routine); Ordered 12/05/22 Ordered By: Greta Jade Referrals: Ying Bonilla MD [Primary Care Provider] - Discharge Diet: Advance as tolerated Discharge Activity: Resume usual activity Patient Instructions: Opioid Safety, Pain Management Coding Level of Care Code ED Back Strip Machine Operator for Chg Palmer
[2022-12-05 04:24] LABS: Troponin(5th) Baseline 31 ng/L (0-10)
[2022-12-05 04:32] LABS: Alanine Aminotransferase 13 U/L (0-33); Albumin Level 4.1 g/dL (3.5-5.2); Alkaline Phosphatase 77 U/L (35-105); Anion Gap 14.2 (5-19); Aspartate Amino Transferase 18 U/L (0-32); Blood Urea Nitrogen 27 mg/dL (8-23); Calcium 9.5 mg/dL (8.5-10.5); Carbon Dioxide 28 mmol/L (22-29); Chloride 105 mmol/L (98-107); Globulin 2.2 g/dL (1.3-4.6); Glucose 114 mg/dL (65-115); NT Pro B Type Natriuretic Pept 626 pg/mL (0-450); Osmolality Calculated 302 mOsm/kg (285-295); Potassium 4.2 mmol/L (3.5-5.1); Sodium 143 mmol/L (136-145); Thyroid Stimulating Hormone 3.05 uIU/mL (0.27-4.20); Total Bilirubin 0.3 mg/dL (0.15-1.2); Total Protein 6.3 g/dL (6.6-8.7)
[2022-12-05 04:55] VITALS: BP 109/70; PULSE 70; RESP 30; O2SAT 97
== END 2022-12-05 05:04 | disposition home or self-care (01) ==
PROVIDERS: Emergency Provider Family Medicine; PCP Family Medicine
DX: I48.20 Chronic atrial fibrillation, unspecified (principal)
CPT/HCPCS: 71045; 80053; 83735; 83880; 84443; 84484; 85025; 93005; 96374; 99284; J3490; J7040

== ENCOUNTER 2022-12-19 10:02 | Emergency (ER) | payer MEDICARE, SELFPAY ==
[2022-12-19] VITALS (46 sets, daily range): BP systolic 77–153; BP diastolic 56–83; PULSE 52–69; RESP 6–29; TEMP 37; O2SAT 90–100
[2022-12-19 10:19] LABS: Basophils % 0.5 %; Eosinophils # 0.1 10^3/uL (0.0-0.8); Eosinophils % 2.9 %; Hematocrit 42.2 % (36-47); Lymphocytes # 0.7 10^3/uL (0.8-4.8); Lymphocytes % 18.1 %; Mean Corpuscular HGB Conc 32.5 g/dL (30-55); Mean Corpuscular Hemoglobin 30.2 pg (27-33); Mean Platelet Volume 12.3 fL (7.4-10.4); Monocytes # 0.3 10^3/uL (0.2-0.9); Monocytes % 7.8 %; Neutrophils # 2.88 10^3/uL (1.8-7.7); Neutrophils % 70.5 %; Nucleated Red Blood Cells % 0 %; Platelet Count 212 10^3/cmm (157-399); Red Blood Count 4.54 10^6/uL (3.85-5.65); Red Cell Distribution Width 14.8 % (12.1-15.1); White Blood Count 4.09 10^3/uL (3.29-11.43)
--- NOTE | 2022-12-19 10:19 | ECG_ITS ---
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 Measurements Intervals [place] Rate: 62 P: 81 [place]: 148 QRS: -36 QRSD: 80 T: 56 QT: 396 QTc: 404 Interpretive Statements SINUS RHYTHM LEFT AXIS DEVIATION [QRS AXIS < -30] LOW QRS VOLTAGE IN PRECORDIAL LEADS [QRS DEFLECTION < 1.0 mV IN CHEST LEADS] POSSIBLE ANTERIOR MYOCARDIAL INFARCTION , PROBABLY OLD [30 ms Q WAVE IN V3/V4, OR R < 0.2 mV IN V4] Compared to ECG 12/05/2022 03:44:48 Left-axis deviation now present Myocardial infarct finding now present Atrial fibrillation no longer present ST (T wave) deviation no longer present Electronically Signed On 12-19-2022 13:02:09 CDT by Sonam Williamson M.D. [id number]
--- NOTE | 2022-12-19 10:22 | PC.NURSE ---
PT PLACED ON CONTINUOUS NIBP, SPO2, AND CM
[2022-12-19] MEDS: sodium chloride 0.9% 500 ML 999 ML IV ×2 (10:26→12:47)
[2022-12-19 10:36] LABS: Alanine Aminotransferase 14 U/L (0-33); Albumin Level 4.8 g/dL (3.5-5.2); Alkaline Phosphatase 83 U/L (35-105); Anion Gap 17.2 (5-19); Aspartate Amino Transferase 27 U/L (0-32); Blood Urea Nitrogen 23 mg/dL (8-23); Calcium 10.1 mg/dL (8.5-10.5); Carbon Dioxide 27 mmol/L (22-29); Chloride 103 mmol/L (98-107); Globulin 3.1 g/dL (1.3-4.6); Glucose 106 mg/dL (65-115); Osmolality Calculated 300 mOsm/kg (285-295); Potassium 4.2 mmol/L (3.5-5.1); Sodium 143 mmol/L (136-145); Total Bilirubin 0.8 mg/dL (0.15-1.2); Total Protein 7.9 g/dL (6.6-8.7)
--- NOTE | 2022-12-19 11:07 | ED_ITS ---
HPI - Weakness General: Chief complaint: Weakness Stated complaint: weakness/ hypertensive Time Seen by Provider: 12/19/22 10:08 Source: patient Mode of arrival: EMS History of Present Illness: 77-year-old female presents emergency room with complaint of weakness dizziness began yesterday. She is on metoprolol and Lasix at home but has not been taking notes. She been slightly slightly short of breath she has a history of atrial fibrillation she is not on anticoagulation. She is moderately hypotensive on arrival she denies chest pain. No focal neurologic deficits. She denies any change in vision speech swallowing no ataxia. Just the occasional dizziness. She states it has not changed when she sits lays or moves laying down does not seem to help it either. MD Complaint: generalized weakness Onset (ago): day(s) (1) Duration: intermittent Relieving factors: none Exacerbating factors: none Associated symptoms: Denies chest pain, chills, confusion, melena, decreased appetite, diaphoresis, dysuria, easy bruising, fever(s), headache(s), myalgias, nausea, rash, short of breath, syncope or vomiting Review of Systems Const: Denies: fever(s), chills, fatigue, malaise or diaphoresis ENMT: Denies: throat pain, ear or mastoid pain, nasal discharge or nasal congestion Card: Denies: chest pain or syncope Resp: Denies: dyspnea, productive cough or non-productive cough GI: Denies: nausea, vomiting or melena : Denies: dysuria Skin/Breast: Denies: rash or pruritus Neuro: Denies: headache(s) or confusion [place]/Lymph: Denies: easy bruising FORMERLY [facility], 1928–1983 ED PFSH: Medical History Chest pain Chronic cystitis History of bladder cancer History of hematuria Incomplete bladder emptying Lung nodule Ovarian cystic mass Palpitations Paroxysmal atrial fibrillation Surgical History History of cataract removal with insertion of prosthetic lens History of ear surgery History of lateral meniscus repair of right knee History of right salpingo-oophorectomy Status post surgical removal and fulguration of bladder neoplasm Family History Father Colon cancer Sister Multiple myeloma Denies family history of Ovarian cancer Diabetes Dementia Heart disease Hypercholesteremia Breast cancer Hypertension Uterine cancer Thyroid disease Stroke Social History Smoking and tobacco status: former smoker Quit status (tobacco): has quit using tobacco Year quit tobacco: 2019 Alcohol intake: never Household members: none Number of children: 1 Number of grandchildren: 1 Current occupational status: retired 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 Jyoce/Judaism: [employer] Special joyce needs: Yes Details: 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 Agree to transfusion: Yes Physical Exam Const: COMMON NORMALS: no acute distress GENERAL APPEARANCE: cooperative and comfortable ORIENTATION/CONSCIOUSNESS: Yes awake HENMT: COMMON NORMALS: normocephalic, atraumatic and hearing grossly normal bilaterally HEAD & SCALP: normocephalic and atraumatic Resp: COMMON NORMALS: normal respiratory effort, No retractions, No use of accessory muscles and clear to auscultation bilaterally AUSCULTATION: clear to auscultation bilaterally Cardio: COMMON NORMALS: regular rate, regular rhythm and No murmurs present (Cardio) RATE: regular rate RHYTHM: regular rhythm GI: COMMON NORMALS: Soft to palpation and No hepatosplenomegaly present AUSCULTATION: Yes normoactive bowel sounds PALPATION: Yes Soft to palpation, No Tenderness to palpation present (GI), No Guarding due to palpation present (GI) and Yes No hepatosplenomegaly present Extremity: COMMON NORMALS: normal to inspection, capillary refill normal, no clubbing, cyanosis or edema, no calf tenderness and no pedal edema Skin: COMMON NORMALS: no rashes or lesions noted GENERAL SKIN EXAM: no rashes or lesions noted Course Vital Signs: Vital signs: Vital Signs Temperature 98.6 F 12/19/22 10:05 Pulse Rate 59 L 12/19/22 13:20 Respiratory Rate 18 12/19/22 13:20 Blood Pressure 153/74 12/19/22 13:20 Pulse Oximetry 99 12/19/22 13:20 Oxygen Delivery Me thod Room Air 12/19/22 10:05 MDM - Weakness Medical Decision Making Proved after IV fluids recommend she does not take any Lasix for now. Started on Macrobid she is given dose of Rocephin here return if has further problems. States feeling much better would like to go home. Medical Records I reviewed the patient's medical records. Lab Data I reviewed the patient's lab results. 12/19/22 10:08 12/19/22 10:08 Laboratory Results WBC 4.09 10^3/uL (3.29-11.43) 12/19/22 10:08 RBC 4.54 10^6/uL (3.85-5.65) 12/19/22 10:08 Hgb 13.70 g/dL (11.27-16.99) 12/19/22 10:08 Hct 42.2 % (36-47) 12/19/22 10:08 MCV 93.0 fl (85-98) 12/19/22 10:08 MCH 30.2 pg (27-33) 12/19/22 10:08 MCHC 32.5 g/dL (30-55) 12/19/22 10:08 RDW 14.8 % (12.1-15.1) 12/19/22 10:08 Plt Count 212 10^3/cmm (157-399) 12/19/22 10:08 MPV 12.3 fL (7.4-10.4) H 12/19/22 10:08 Neut % (Auto) 70.5 % 12/19/22 10:08 Lymph % (Auto) 18.1 % 12/19/22 10:08 [place] % (Auto) 7.8 % 12/19/22 10:08 Eos % (Auto) 2.9 % 12/19/22 10:08 Baso % (Auto) 0.5 % 12/19/22 10:08 Neut # (Auto) 2.88 10^3/uL (1.8-7.7) 12/19/22 10:08 Lymph # (Auto) 0.7 10^3/uL (0.8-4.8) L 12/19/22 10:08 [place] # (Auto) 0.3 10^3/uL (0.2-0.9) 12/19/22 10:08 Eos # (Auto) 0.1 10^3/uL (0.0-0.8) 12/19/22 10:08 Baso # (Auto) 0.0 10^3/uL (0.0-0.1) 12/19/22 10:08 Nucleated RBC % (auto) 0 % 12/19/22 10:08 Nucleated RBCs # 0.0 /100WBC 12/19/22 10:08 Sodium 143 mmol/L (136-145) 12/19/22 10:08 Potassium 4.2 mmol/L (3.5-5.1) 12/19/22 10:08 Chloride 103 mmol/L (98-107) 12/19/22 10:08 Carbon Dioxide 27 mmol/L (22-29) 12/19/22 10:08 Anion Gap 17.2 (5-19) 12/19/22 10:08 BUN 23 mg/dL (8-23) 12/19/22 10:08 Creatinine 1.1 mg/dL (0.5-0.9) H 12/19/22 10:08 GFR Calculation Not Reportable 12/19/22 10:08 Glucose 106 mg/dL (65-115) 12/19/22 10:08 Calculated Osmolality 300 mOsm/kg (285-295) H 12/19/22 10:08 Calcium 10.1 mg/dL (8.5-10.5) 12/19/22 10:08 Total Bilirubin 0.8 mg/dL (0.15-1.2) 12/19/22 10:08 AST 27 U/L (0-32) 12/19/22 10:08 ALT 14 U/L (0-33) 12/19/22 10:08 Alkaline Phosphatase 83 U/L (35-105) 12/19/22 10:08 Total Protein 7.9 g/dL (6.6-8.7) 12/19/22 10:08 Albumin 4.8 g/dL (3.5-5.2) 12/19/22 10:08 Globulin 3.1 g/dL (1.3-4.6) 12/19/22 10:08 Urine Color Straw (Yellow) 12/19/22 10:40 Urine Appearance Hazy (CLEAR) A 12/19/22 10:40 Urine pH 6.5 (5-7) 12/19/22 10:40 Ur Specific [place] 1.005 (1.005-1.030) 12/19/22 10:40 Urine Protein Neg (Negative) 12/19/22 10:40 Urine Glucose (UA) Norm (Normal) 12/19/22 10:40 Urine Ketones Negative (Negative) 12/19/22 10:40 Urine Blood Neg (Negative) 12/19/22 10:40 Urine Nitrate Negative (Negative) 12/19/22 10:40 Urine Bilirubin Neg (Negative) 12/19/22 10:40 Urine Urobilinogen Norm mg/dL (Negative) 12/19/22 10:40 Ur Leukocyte Esterase 2+ (Negative) H 12/19/22 10:40 Urine RBC 0-4 /hpf (0-2) H 12/19/22 10:40 Urine WBC 25-40 /hpf (0-5) H 12/19/22 10:40 Ur Squamous Epith Cells 5-10 /hpf (0-5) H 12/19/22 10:40 Ur Transition Epith Cell 5-10 /hpf 12/19/22 10:40 Amorphous Sediment Not Reportable 12/19/22 10:40 Urine Bacteria 1+ /hpf (NONE) H 12/19/22 10:40 Discharge Plan Discharge Patient Disposition: Home Clinical Impression: Cystitis Condition: Stable Prescriptions: New Macrobid 100 mg capsule 100 mg PO BID 7 Days Qty: 14 0RF Rx Instructions: must administer with a meal/food No Action metoprolol tartrate 25 mg tablet 25 mg PO BID Qty: 180 3RF aspirin 325 mg Tablet 325 mg PO QAM magnesium oxide 400 mg magnesium Tablet 400 mg PO DAILY PRN (Reason: Muscle Spasm) Prevagen 1 cap PO DAILY furosemide 20 mg tablet 20 mg PO DAILY PRN (Reason: Edema) Discharge Orders: Discharge ED (Routine); Ordered 12/19/22 Ordered By: Abraham North Referrals: Ying Bonilla MD [Primary Care Provider] - Discharge Diet: Usual diet Discharge Activity: Increase activity as tolerated Patient Instructions: Opioid Safety, Pain Management Coding Level of Care Code ED Card Cleaner for Renea Chakraborty
[2022-12-19 11:08] LABS: Specific Gravity, Urine 1.005 (1.005-1.030); Urine Appearance Hazy (CLEAR); Urine Color Straw (Yellow); pH Urine 6.5 (5-7)
[2022-12-19 11:09] LABS: Add Urine Culture? Yes; Add Urine Microscopic? YES; Bacteria Urine 1+ /hpf; Bilirubin Urine Neg (Negative); Blood Urine Neg (Negative); Glucose Urine UA Norm (Normal); Ketones Urine Negative (Negative); Leukocyte Esterase Urine 2+ (Negative); Nitrate Urine Negative (Negative); Protein Urine Neg (Negative); RBC Urine 0-4 /hpf (0-2); Urobilinogen Urine Norm (Negative); WBC Urine 25-40 /hpf (0-5)
--- NOTE | 2022-12-19 11:29 | PC.PHAR ---
pt states she takes care of her own medications-pt states she finished her fluconazole on thu12/12/22-
[2022-12-19] MEDS: cefTRIAXone 1,000 MG in sodium chloride 0.9% (plus) 50 ML 100 MG IV (12:47)
== END 2022-12-19 14:10 | disposition home or self-care (01) ==
PROVIDERS: Emergency Provider Family Medicine; PCP Family Medicine
DX: N30.90 Cystitis, unspecified without hematuria (principal); Z79.82 Long term (current) use of aspirin; Z87.891 Personal history of nicotine dependence; Z85.51 Personal history of malignant neoplasm of bladder
CPT/HCPCS: 36415; 51701; 80053; 81001; 85025; 87040; 87086; 93005; 96361; 96374; 99284; J0696; J7040

== ENCOUNTER → 2022-12-25 11:19 | Outpatient (BNVA) | payer MEDICARE, SELFPAY | PROVIDERS: PCP Family Medicine; Visit Provider Internal Medicine Cardiovascular Disease | DX: N30.90 Cystitis, unspecified without hematuria (principal); Z86.73 Personal history of transient ischemic attack (TIA), and cerebral infarction without residual deficits; I27.20 Pulmonary hypertension, unspecified; Z85.51 Personal history of malignant neoplasm of bladder; I48.0 Paroxysmal atrial fibrillation; I95.1 Orthostatic hypotension; Z87.891 Personal history of nicotine dependence; R41.0 Disorientation, unspecified | CPT/HCPCS: 80053; 83735; 85025; 99213 ==

== ENCOUNTER 2023-01-02 10:31 | Emergency (ER) | payer MEDICARE, SELFPAY ==
[2023-01-02 10:32] VITALS: BP 118/76; PULSE 67; RESP 18; TEMP 36.6; O2SAT 96; BMI 25.7
--- NOTE | 2023-01-02 10:42 | ED_ITS ---
HPI - Abdominal Pain General: Chief Complaint: Abdominal Pain Stated Complaint: abd pain Time Seen by Provider: 01/02/23 10:32 Source: patient and EMS Mode of arrival: EMS Limitations: no limitations History of Present Illness: 77-year-old female states she has been having left lower quadrant abdominal pain since this morning. States the pain has been sharp and severe in nature radiates to her back as well. States the pain is currently 9 out of 10 she has had some nausea denies any vomiting she denies any fever she denies any worsening improving factors. Associated Symptoms: Denies chills, diarrhea, dysuria, fever(s), nausea and vomiting Review of Systems Const: Denies: fever(s), chills, body aches or change in appetite Eyes: Denies: blurry vision or eye discomfort ENMT: Denies: throat pain or dental pain Card: Denies: chest pain Resp: Denies: dyspnea GI: Reports: abdominal pain; Denies: nausea, vomiting or diarrhea : Denies: dysuria Musc: Denies: neck pain or back pain Skin/Breast: Denies: rash Neuro: Denies: headache(s) PFSH ED PFSH: Medical History Chest pain Chronic cystitis History of bladder cancer History of hematuria Incomplete bladder emptying Lung nodule Ovarian cystic mass Palpitations Paroxysmal atrial fibrillation Surgical History History of cataract removal with insertion of prosthetic lens History of ear surgery History of lateral meniscus repair of right knee History of right salpingo-oophorectomy Status post surgical removal and fulguration of bladder neoplasm Family History Father Colon cancer Sister Multiple myeloma Denies family history of Ovarian cancer Diabetes Dementia Heart disease Hypercholesteremia Breast cancer Hypertension Uterine cancer Thyroid disease Stroke Social History Smoking and tobacco status: former smoker Quit status (tobacco): has quit using tobacco Year quit tobacco: 2019 Alcohol intake: never Household members: none Number of children: 1 Number of grandchildren: 1 Current occupational status: retired 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 Special joyce needs: Yes Details: call licensed chemical spray technician for final right Agree to transfusion: Yes Physical Exam Const: COMMON NORMALS: no acute distress, patient oriented x3 and healthy appearing HENMT: COMMON NORMALS: normocephalic and atraumatic HEAD & SCALP: normocephalic and atraumatic Neck/C-Spine: COMMON NORMALS: full ROM and supple Chest: COMMONS NORMALS: normal inspection of the chest and normal palpation of entire chest wall Resp: COMMON NORMALS: normal respiratory effort, No retractions, No use of accessory muscles and clear to auscultation bilaterally AUSCULTATION: clear to auscultation bilaterally Cardio: COMMON NORMALS: regular rate, regular rhythm and No murmurs present (Cardio) RATE: regular rate RHYTHM: regular rhythm GI: COMMON NORMALS: Normal to inspection, nondistended, normoactive bowel sounds present and Soft to palpation PALPATION: Yes Soft to palpation OTHER: Left inguinal hernia some slight tenderness palpation Extremity: COMMON NORMALS: normal to inspection and full ROM Neuro: COMMON NORMALS: patient oriented x3, moves all extremities and no focal motor deficits Psych: COMMON NORMALS: mental status grossly normal, Normal thought process present and cooperative THOUGHT PROCESS: Normal thought process present Skin: COMMON NORMALS: no rashes or lesions noted and no wounds GENERAL SKIN EXAM: no rashes or lesions noted Course Vital Signs: Vital signs: Vital Signs Temperature 97.8 F 01/02/23 10:32 Pulse Rate 67 01/02/23 10:32 Respiratory Rate 18 01/02/23 10:32 Blood Pressure 118/76 01/02/23 10:32 Pulse Oximetry 96 01/02/23 10:32 Oxygen Delivery Me thod Room Air 01/02/23 10:32 MDM - Abdominal Pain Medical Decision Making Patient presents with a left inguinal hernia that I was able to reduce here. She feels much improved after it was reduced we will prescribe her pain meds she is to follow-up with surgery if she has increased pain she is return immediately she understands agrees to plan. Lab Data 01/02/23 10:40 01/02/23 10:40 Labs/Radiology: Laboratory Results WBC 5.27 10^3/uL (3.29-11.43) 01/02/23 10:40 RBC 4.16 10^6/uL (3.85-5.65) 01/02/23 10:40 Hgb 12.60 g/dL (11.27-16.99) 01/02/23 10:40 Hct 39.1 % (36-47) 01/02/23 10:40 MCV 94.0 fl (85-98) 01/02/23 10:40 MCH 30.3 pg (27-33) 01/02/23 10:40 MCHC 32.2 g/dL (30-55) 01/02/23 10:40 RDW 14.6 % (12.1-15.1) 01/02/23 10:40 Plt Count 177 10^3/cmm (157-399) 01/02/23 10:40 MPV 12.5 fL (7.4-10.4) H 01/02/23 10:40 Neut % (Auto) 77.8 % 01/02/23 10:40 Lymph % (Auto) 11.8 % 01/02/23 10:40 [place] % (Auto) 6.6 % 01/02/23 10:40 Eos % (Auto) 2.8 % 01/02/23 10:40 Baso % (Auto) 0.6 % 01/02/23 10:40 Neut # (Auto) 4.10 10^3/uL (1.8-7.7) 01/02/23 10:40 Lymph # (Auto) 0.6 10^3/uL (0.8-4.8) L 01/02/23 10:40 [place] # (Auto) 0.4 10^3/uL (0.2-0.9) 01/02/23 10:40 Eos # (Auto) 0.2 10^3/uL (0.0-0.8) 01/02/23 10:40 Baso # (Auto) 0.0 10^3/uL (0.0-0.1) 01/02/23 10:40 Nucleated RBC % (auto) 0 % 01/02/23 10:40 Nucleated RBCs # 0.0 /100WBC 01/02/23 10:40 Sodium 142 mmol/L (136-145) 01/02/23 10:40 Potassium 4.1 mmol/L (3.5-5.1) 01/02/23 10:40 Chloride 104 mmol/L (98-107) 01/02/23 10:40 Carbon Dioxide 28 mmol/L (22-29) 01/02/23 10:40 Anion Gap 14.1 (5-19) 01/02/23 10:40 BUN 27 mg/dL (8-23) H 01/02/23 10:40 Creatinine 0.9 mg/dL (0.5-0.9) 01/02/23 10:40 GFR Calculation Not Reportable 01/02/23 10:40 Glucose 104 mg/dL (65-115) 01/02/23 10:40 Calculated Osmolality 299 mOsm/kg (285-295) H 01/02/23 10:40 Calcium 9.8 mg/dL (8.5-10.5) 01/02/23 10:40 Total Bilirubin 0.5 mg/dL (0.15-1.2) 01/02/23 10:40 AST 22 U/L (0-32) 01/02/23 10:40 ALT 15 U/L (0-33) 01/02/23 10:40 Alkaline Phosphatase 71 U/L (35-105) 01/02/23 10:40 Total Protein 7.1 g/dL (6.6-8.7) 01/02/23 10:40 Albumin 4.3 g/dL (3.5-5.2) 01/02/23 10:40 Globulin 2.8 g/dL (1.3-4.6) 01/02/23 10:40 Lipase 29 U/L (13-60) 01/02/23 10:40 Urine Color Yellow (Yellow) 01/02/23 12:52 Urine Appearance Cloudy (CLEAR) A 01/02/23 12:52 Urine pH 6 (5-7) 01/02/23 12:52 Ur Specific [place] 1.010 (1.005-1.030) 01/02/23 12:52 Urine Protein Trace (Negative) 01/02/23 12:52 Urine Glucose (UA) Norm (Normal) 01/02/23 12:52 Urine Ketones Negative (Negative) 01/02/23 12:52 Urine Blood 2+ (Negative) H 01/02/23 12:52 Urine Nitrate Negative (Negative) 01/02/23 12:52 Urine Bilirubin Neg (Negative) 01/02/23 12:52 Urine Urobilinogen Norm mg/dL (Negative) 01/02/23 12:52 Ur Leukocyte Esterase 2+ (Negative) H 01/02/23 12:52 Urine RBC 5-10 /hpf (0-2) H 01/02/23 12:52 Urine WBC >100 /hpf (0-5) H 01/02/23 12:52 Ur Squamous Epith Cells 0-4 /hpf (0-5) H 01/02/23 12:52 Amorphous Sediment Not Reportable 01/02/23 12:52 Urine Bacteria 1+ /hpf (NONE) H 01/02/23 12:52 Urine Mucus 1+ /hpf 01/02/23 12:52 All radiology interpretation(s) finalized by discharge Discharge Plan Discharge Patient Disposition: Home Clinical Impression: Hernia, inguinal, left Condition: Stable Prescriptions: New hydrocodone-acetaminophen 5-325 mg tablet 1 tab PO Q6H PRN (Reason: pain) Qty: 14 0RF ondansetron 4 mg tablet,disintegrating 4 mg PO Q6H PRN (Reason: nausea and vomiting) Qty: 14 0RF No Action metoprolol tartrate 25 mg tablet 25 mg PO BID Qty: 180 3RF aspirin 325 mg Tablet 325 mg PO QAM magnesium oxide 400 mg magnesium Tablet 400 mg PO DAILY PRN (Reason: Muscle Spasm) Prevagen 1 cap PO DAILY furosemide 20 mg tablet 20 mg PO DAILY PRN (Reason: Edema) Discharge Orders: Discharge ED (Routine); Ordered 01/02/23 Ordered By: Kavon Lucas Referrals: Heraclio Reyes MD [Physician] - 1-3 days Ying Bonilla MD [Primary Care Provider] - Discharge Diet: Advance as tolerated Discharge Activity: Resume usual activity Patient Instructions: Inguinal Hernia (ED), Opioid Safety Coding Level of Care Code ED [employer] Route Aide for Chg Palmer
[2023-01-02] MEDS: ondansetron 2 mg/ML SDV 2 mL 4 MG IVP (10:57)
[2023-01-02] MEDS: morphine 4 mg/mL SDV 1 mL IVP (10:57)
[2023-01-02 11:06] LABS: Basophils % 0.6 %; Eosinophils # 0.2 10^3/uL (0.0-0.8); Eosinophils % 2.8 %; Hematocrit 39.1 % (36-47); Lymphocytes # 0.6 10^3/uL (0.8-4.8); Lymphocytes % 11.8 %; Mean Corpuscular HGB Conc 32.2 g/dL (30-55); Mean Corpuscular Hemoglobin 30.3 pg (27-33); Mean Platelet Volume 12.5 fL (7.4-10.4); Monocytes # 0.4 10^3/uL (0.2-0.9); Monocytes % 6.6 %; Neutrophils % 77.8 %; Nucleated Red Blood Cells % 0 %; Platelet Count 177 10^3/cmm (157-399); Red Blood Count 4.16 10^6/uL (3.85-5.65); Red Cell Distribution Width 14.6 % (12.1-15.1); White Blood Count 5.27 10^3/uL (3.29-11.43)
[2023-01-02 11:40] LABS: Alanine Aminotransferase 15 U/L (0-33); Albumin Level 4.3 g/dL (3.5-5.2); Alkaline Phosphatase 71 U/L (35-105); Anion Gap 14.1 (5-19); Aspartate Amino Transferase 22 U/L (0-32); Blood Urea Nitrogen 27 mg/dL (8-23); Calcium 9.8 mg/dL (8.5-10.5); Carbon Dioxide 28 mmol/L (22-29); Chloride 104 mmol/L (98-107); Globulin 2.8 g/dL (1.3-4.6); Glucose 104 mg/dL (65-115); Lipase 29 U/L (13-60); Osmolality Calculated 299 mOsm/kg (285-295); Potassium 4.1 mmol/L (3.5-5.1); Sodium 142 mmol/L (136-145); Total Bilirubin 0.5 mg/dL (0.15-1.2); Total Protein 7.1 g/dL (6.6-8.7)
--- NOTE | 2023-01-02 12:13 | CT_ITS ---
WS: [id number] CT ABDOMEN AND PELVIS WITH CONTRAST HISTORY: abd pain TECHNIQUE: Imaging performed of the abdomen and pelvis with IV contrast. Single phase imaging of the abdomen. Coronal and sagittal reformats are submitted. All CT scans at [facility] use at [address] one of these dose optimization techniques: automated exposure control; mA and/or kV adjustment per patient size (includes targeted exams where dose is matched to clinical indication); or iterative re construction. IV CONTRAST: Omnipaque 350; 100 mL IV. Oral contrast: No DLP: 371.27 COMPARISON: None available. Lower thorax: Lung bases are clear. Mild cardiomegaly. No hiatal hernia. Liver/biliary system: Normal size with no intrahepatic dilatation. Gallbladder: Mildly contracted gallbladder. Pancreas: Normal size pancreas and pancreatic duct. No adjacent inflammation. Spleen: Normal size spleen. No mass or infarct. Adrenal glands: Normal. Right kidney: Normal. Left kidney: Normal. Aorta: Marked atherosclerosis aorta. Near circumferential calcification in the infrarenal aorta. SMA and celiac axis are enhancing. Mild omental stranding along the LEFT colon just below the level of the spleen. This may be exacerbat ed by motion artifact. No masses or adenopathy to suggest carcinomatosis. Lymphadenopathy: None. Free fluid: None. GI tract: Stomach is not distended. Increasing fluid distention of small bowel loops within the LEFT abdomen. Jejunal loops are filled with fluid extending up to 2.5 cm in diameter. Loop of jejunum exte nds into the LEFT inguinal canal. There is small bowel obstruction in the inguinal canal. Fluid-fille d loop of bowel. At the orifice of the hernia there is a focal area of bowel wall enhancement and ear ly ischemic changes with submucosal edema. No pneumatosis at this time. Moderate fecal retention thro ughout the remaining colon. Abdominal wall: Unremarkable abdominal wall. No hernia. Pelvis: No free fluid or adenopathy within the pelvis. Atrophic uterus. Marked distention of the urin nba bladder. Bones: L3 and L4 anterolisthesis by 5 mm. Advanced facet joint arthritis in the lower lumbar spine. L 1 anterior compression fracture 10%. Advanced degenerative changes at the LEFT hip. Subchondral cysti c changes on both sides of the LEFT hip joint. IMPRESSION: 1. Strangulated LEFT inguinal hernia involving a loop of jejunum. Early ischemic changes are noted a t the neck of the hernia. Mild proximal small bowel obstructive pattern. 2. No acute abdominal or pelvic abnormalities otherwise. 3. Constipation. 4. Moderate atherosclerosis aorta. Notified Kavon Lucas MD at 01/02/2023 12:56 PM.
[2023-01-02] MEDS: iohexol 350 mg/mL 500 mL Btl (per mL) IV (12:22)
[2023-01-02 13:01] LABS: Add Urine Microscopic? YES; Bilirubin Urine Neg (Negative); Blood Urine 2+ (Negative); Glucose Urine UA Norm (Normal); Ketones Urine Negative (Negative); Leukocyte Esterase Urine 2+ (Negative); Nitrate Urine Negative (Negative); Protein Urine Trace (Negative); Urine Appearance Cloudy (CLEAR); Urine Color Yellow (Yellow); Urobilinogen Urine Norm (Negative); pH Urine 6 (5-7)
[2023-01-02 13:02] LABS: Add Urine Culture? Yes; Bacteria Urine 1+ /hpf; Mucus Urine 1+ /hpf; Squamous Epithelial Cell Urine 0-4 /hpf (0-5); WBC Urine >100 /hpf (0-5)
[2023-01-02] MEDS: HYDROmorphone 1 mg/mL INJ 1 mL IVP (13:07)
[2023-01-02] MEDS: LORazepam 2 mg/mL INJ 1 mL 0.5 MG IVP (13:07)
--- NOTE | 2023-01-05 08:06 | PC.SOCIAL ---
General Surgery Referral Referral message sent to clinic at this time. Clinic to contact patient with appt date/time.
== END 2023-01-02 14:35 | disposition home or self-care (01) ==
PROVIDERS: Emergency Provider Emergency Medicine; PCP Family Medicine
DX: K40.90 Unilateral inguinal hernia, without obstruction or gangrene, not specified as recurrent (principal); Z79.82 Long term (current) use of aspirin; Z87.891 Personal history of nicotine dependence; Z85.51 Personal history of malignant neoplasm of bladder
CPT/HCPCS: 74177; 80053; 81001; 83690; 85025; 87086; 96374; 96375; 99285; J1170; J2060; J2270; J2405; Q9967

== ENCOUNTER → 2023-01-08 08:53 | Outpatient (BNVA) | payer MEDICARE, SELFPAY | PROVIDERS: PCP Family Medicine; Referring Provider Emergency Medicine; Visit Provider Surgery | DX: K40.90 Unilateral inguinal hernia, without obstruction or gangrene, not specified as recurrent (principal) | CPT/HCPCS: 99203 ==

== ENCOUNTER 2023-01-16 05:13 | Emergency (ER) | payer MEDICARE, SELFPAY ==
[2023-01-16 05:15] VITALS: BP 105/76; TEMP 36.4; BMI 22.3
--- NOTE | 2023-01-16 05:29 | W.ED.PSYCHS ---
Documented by User: Kavon Lucas MD 01/16/23 18:10 HPI - Psych General: Chief Complaint: Psychiatric Symptoms Stated Complaint: HALLUCINATIONS Time Seen by Provider: 01/16/23 05:17 Source: patient and EMS Mode of arrival: EMS Limitations: no limitations History of Present Illness: 77-year-old female here by EMS for hallucinations she states that she has been seeing people in her home over the last 4 to 6 weeks states she is also been hearing some voices. She denies any suicidal or homicidal ideations patient denies any worsening proving factors no history of schizophrenia she is not on any psychiatric meds she states she has had a chronic UTI her PCP has been treating and he is known about these hallucinations. Associated symptoms: Reports auditory hallucinations and visual hallucinations; Deny depression Review of Systems Const: Denies: fever(s), chills, body aches or change in appetite Eyes: Denies: eye discomfort ENMT: Denies: throat pain or dental pain Card: Denies: chest pain Resp: Denies: dyspnea GI: Denies: abdominal pain, nausea, vomiting or diarrhea Musc: Denies: neck pain or back pain Skin/Breast: Denies: rash Neuro: Denies: headache(s) Psych: Reports: visual hallucinations and auditory hallucinations; Denies: depression PFSH ED PFSH: Medical History Chest pain Chronic cystitis History of bladder cancer History of hematuria Incomplete bladder emptying Lung nodule Ovarian cystic mass Palpitations Paroxysmal atrial fibrillation Surgical History History of cataract removal with insertion of prosthetic lens History of ear surgery History of lateral meniscus repair of right knee History of right salpingo-oophorectomy Status post surgical removal and fulguration of bladder neoplasm Family History Father Colon cancer Sister Multiple myeloma Denies family history of Ovarian cancer Diabetes Dementia Heart disease Hypercholesteremia Breast cancer Hypertension Uterine cancer Thyroid disease Stroke Social History Smoking and tobacco status: former smoker Quit status (tobacco): has quit using tobacco Year quit tobacco: 2019 Alcohol intake: never Household members: none Number of children: 1 Number of grandchildren: 1 Current occupational status: retired 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 Joyce/Anabaptism: Yarsanism Special joyce needs: Yes Details: call education and training manager for final right Agree to transfusion: Yes Physical Exam Const: COMMON NORMALS: no acute distress, patient oriented x3 and healthy appearing HENMT: COMMON NORMALS: normocephalic and atraumatic HEAD & SCALP: normocephalic and atraumatic Neck/C-Spine: COMMON NORMALS: full ROM and supple Chest: COMMONS NORMALS: normal inspection of the chest and normal palpation of entire chest wall Resp: COMMON NORMALS: normal respiratory effort, No retractions, No use of accessory muscles and clear to auscultation bilaterally AUSCULTATION: clear to auscultation bilaterally Cardio: COMMON NORMALS: regular rate, regular rhythm and No murmurs present (Cardio) RATE: regular rate RHYTHM: regular rhythm GI: COMMON NORMALS: Normal to inspection, nondistended, normoactive bowel sounds present, Soft to palpation, non-tender and no masses PALPATION: Yes Soft to palpation Extremity: COMMON NORMALS: normal to inspection and full ROM Neuro: COMMON NORMALS: patient oriented x3, moves all extremities and no focal motor deficits Psych: COMMON NORMALS: mental status grossly normal and cooperative THOUGHT CONTENT: Yes Hallucination(s) present Skin: COMMON NORMALS: no rashes or lesions noted and no wounds GENERAL SKIN EXAM: no rashes or lesions noted Course Vital Signs: Vital signs: Vital Signs Temperature 98 F 01/16/23 14:00 Pulse Rate 67 01/16/23 15:27 Respiratory Rate 16 01/16/23 15:27 Blood Pressure 92/53 01/16/23 15:27 Pulse Oximetry 98 01/16/23 15:27 Oxygen Delivery Me thod Room Air 01/16/23 10:05 [facility] - Psych Medical Decision Making Patient presents here with hallucinations been going on for quite some time she is not psychotic suicidal or homicidal she want to go home we will get her psych evaluation likely send her home. Medical Records I reviewed the patient's medical records. Lab Data I reviewed the patient's lab results. 01/16/23 05:50 01/16/23 05:50 Laboratory Results WBC 4.58 10^3/uL (3.29-11.43) 01/16/23 05:50 RBC 3.82 10^6/uL (3.85-5.65) L 01/16/23 05:50 Hgb 11.40 g/dL (11.27-16.99) 01/16/23 05:50 Hct 36.2 % (36-47) 01/16/23 05:50 MCV 94.8 fl (85-98) 01/16/23 05:50 MCH 29.8 pg (27-33) 01/16/23 05:50 MCHC 31.5 g/dL (30-55) 01/16/23 05:50 RDW 14.6 % (12.1-15.1) 01/16/23 05:50 Plt Count 162 10^3/cmm (157-399) 01/16/23 05:50 MPV 12.1 fL (7.4-10.4) H 01/16/23 05:50 Neut % (Auto) 70.1 % 01/16/23 05:50 Lymph % (Auto) 19.0 % 01/16/23 05:50 [place] % (Auto) 7.2 % 01/16/23 05:50 Eos % (Auto) 3.1 % 01/16/23 05:50 Baso % (Auto) 0.4 % 01/16/23 05:50 Neut # (Auto) 3.21 10^3/uL (1.8-7.7) 01/16/23 05:50 Lymph # (Auto) 0.9 10^3/uL (0.8-4.8) 01/16/23 05:50 [place] # (Auto) 0.3 10^3/uL (0.2-0.9) 01/16/23 05:50 Eos # (Auto) 0.1 10^3/uL (0.0-0.8) 01/16/23 05:50 Baso # (Auto) 0.0 10^3/uL (0.0-0.1) 01/16/23 05:50 Nucleated RBC % (auto) 0 % 01/16/23 05:50 Nucleated RBCs # 0.0 /100WBC 01/16/23 05:50 Sodium 142 mmol/L (136-145) 01/16/23 05:50 Potassium 3.9 mmol/L (3.5-5.1) 01/16/23 05:50 Chloride 105 mmol/L (98-107) 01/16/23 05:50 Carbon Dioxide 27 mmol/L (22-29) 01/16/23 05:50 Anion Gap 13.9 (5-19) 01/16/23 05:50 BUN 22 mg/dL (8-23) 01/16/23 05:50 Creatinine 0.9 mg/dL (0.5-0.9) 01/16/23 05:50 GFR Calculation Not Reportable 01/16/23 05:50 Glucose 92 mg/dL (65-115) 01/16/23 05:50 Calculated Osmolality 297 mOsm/kg (285-295) H 01/16/23 05:50 Calcium 9.6 mg/dL (8.5-10.5) 01/16/23 05:50 Total Bilirubin 0.5 mg/dL (0.15-1.2) 01/16/23 05:50 AST 20 U/L (0-32) 01/16/23 05:50 ALT 15 U/L (0-33) 01/16/23 05:50 Alkaline Phosphatase 62 U/L (35-105) 01/16/23 05:50 Total Protein 6.7 g/dL (6.6-8.7) 01/16/23 05:50 Albumin 4.2 g/dL (3.5-5.2) 01/16/23 05:50 Globulin 2.5 g/dL (1.3-4.6) 01/16/23 05:50 HCG, Qual Negative (Negative) 01/16/23 05:39 Urine Color Light yellow (Yellow) 01/16/23 05:39 Urine Appearance Cloudy (CLEAR) A 01/16/23 05:39 Urine pH 5 (5-7) 01/16/23 05:39 Ur Specific [place] 1.020 (1.005-1.030) 01/16/23 05:39 Urine Protein Neg (Negative) 01/16/23 05:39 Urine Glucose (UA) Norm (Normal) 01/16/23 05:39 Urine Ketones 1+ (Negative) H 01/16/23 05:39 Urine Blood Neg (Negative) 01/16/23 05:39 Urine Nitrate Negative (Negative) 01/16/23 05:39 Urine Bilirubin Neg (Negative) 01/16/23 05:39 Urine Urobilinogen Neg mg/dL (Negative) 01/16/23 05:39 Ur Leukocyte Esterase 2+ (Negative) H 01/16/23 05:39 Urine RBC 5-10 /hpf (0-2) H 01/16/23 05:39 Urine WBC 10-15 /hpf (0-5) H 01/16/23 05:39 Ur Squamous Epith Cells 15-25 /hpf (0-5) H 01/16/23 05:39 Ur Transition Epith Cell 5-10 /hpf 01/16/23 05:39 Amorphous Sediment Not Reportable 01/16/23 05:39 Urine Bacteria 1+ /hpf (NONE) H 01/16/23 05:39 Urine Mucus 3+ /hpf 01/16/23 05:39 Salicylates 0.7 mg/dL (3-10) L 01/16/23 05:50 Urine Opiates Screen Negative ng/mL (Negative) 01/16/23 05:39 Acetaminophen < 5.0 ug/mL (10-30) L 01/16/23 05:50 Ur Barbiturates Screen Negative ng/mL (Negative) 01/16/23 05:39 Ur Phencyclidine Scrn Negative ng/mL (Negative) 01/16/23 05:39 Ur Amphetamines Screen Negative ng/mL (Negative) 01/16/23 05:39 U Benzodiazepines Scrn Negative ng/mL (Negative) 01/16/23 05:39 Urine Cocaine Screen Negative ng/mL (Negative) 01/16/23 05:39 U Marijuana (THC) Screen Negative ng/mL (Negative) 01/16/23 05:39 Ethyl Alcohol < 10 mg/dL (0-10) 01/16/23 05:50 SARS-CoV-2 Ag (Rapid) negative (Negative) 01/16/23 05:52 No radiology studies performed this visit Discharge Plan Discharge Patient Disposition: Home Clinical Impression: Dementia Condition: Stable Prescriptions: No Action metoprolol tartrate 25 mg tablet 25 mg PO BID Qty: 180 3RF ciprofloxacin HCl 500 mg tablet 500 mg PO Q12H Qty: 20 0RF aspirin 325 mg Tablet 325 mg PO QAM magnesium oxide 400 mg magnesium Tablet 400 mg PO DAILY PRN (Reason: Muscle Spasm) Prevagen 1 cap PO DAILY furosemide 20 mg tablet 20 mg PO DAILY PRN (Reason: Edema) Discharge Orders: Discharge ED (Routine); Ordered 01/16/23 Ordered By: Abraham North Referrals: Ying Bonilla MD [Primary Care Provider] - Discharge Diet: Usual diet Discharge Activity: Resume usual activity Patient Instructions: Opioid Safety, Pain Management Activity Restrictions/Additional Instructions: Follow-up with your primary care doctor to pursue potential intermediate placement. Case management make arrangements for outpatient consultation with neurology. Sign Out Sign Out Data: Patient Sign Out occurred on 01/16/23 at 13:55. Patient's care was discussed, and care was transferred from to Abraham North DO. Coding Level of Care Code ED Occupational Therapy Assistant for Chg Fwd Documented by User: Abraham North DO 01/20/23 06:29 HPI - Psych General: Chief Complaint: Psychiatric Symptoms Stated Complaint: HALLUCINATIONS Time Seen by Provider: 01/16/23 05:17 PFSH ED PFSH: Medical History Chest pain Chronic cystitis History of bladder cancer History of hematuria Incomplete bladder emptying Lung nodule Ovarian cystic mass Palpitations Paroxysmal atrial fibrillation Surgical History History of cataract removal with insertion of prosthetic lens History of ear surgery History of lateral meniscus repair of right knee History of right salpingo-oophorectomy Status post surgical removal and fulguration of bladder neoplasm Family History Father Colon cancer Sister Multiple myeloma Denies family history of Ovarian cancer Diabetes Dementia Heart disease Hypercholesteremia Breast cancer Hypertension Uterine cancer Thyroid disease Stroke Social History Smoking and tobacco status: former smoker Quit status (tobacco): has quit using tobacco Year quit tobacco: 2020 Alcohol intake: never Household members: none Number of children: 1 Number of grandchildren: 1 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 Lucas at change of shift. See final notes for diagnosis and disposition. Patient presents here with hallucinations been going on for quite some time she is not psychotic suicidal or homicidal she want to go home we will get her psych evaluation likely send her home. Lab Data 01/16/23 05:50 01/16/23 05:50 Laboratory Results WBC 4.58 10^3/uL (3.29-11.43) 01/16/23 05:50 RBC 3.82 10^6/uL (3.85-5.65) L 01/16/23 05:50 Hgb 11.40 g/dL (11.27-16.99) 01/16/23 05:50 Hct 36.2 % (36-47) 01/16/23 05:50 MCV 94.8 fl (85-98) 01/16/23 05:50 MCH 29.8 pg (27-33) 01/16/23 05:50 MCHC 31.5 g/dL (30-55) 01/16/23 05:50 RDW 14.6 % (12.1-15.1) 01/16/23 05:50 Plt Count 162 10^3/cmm (157-399) 01/16/23 05:50 MPV 12.1 fL (7.4-10.4) H 01/16/23 05:50 Neut % (Auto) 70.1 % 01/16/23 05:50 Lymph % (Auto) 19.0 % 01/16/23 05:50 [place] % (Auto) 7.2 % 01/16/23 05:50 Eos % (Auto) 3.1 % 01/16/23 05:50 Baso % (Auto) 0.4 % 01/16/23 05:50 Neut # (Auto) 3.21 10^3/uL (1.8-7.7) 01/16/23 05:50 Lymph # (Auto) 0.9 10^3/uL (0.8-4.8) 01/16/23 05:50 [place] # (Auto) 0.3 10^3/uL (0.2-0.9) 01/16/23 05:50 Eos # (Auto) 0.1 10^3/uL (0.0-0.8) 01/16/23 05:50 Baso # (Auto) 0.0 10^3/uL (0.0-0.1) 01/16/23 05:50 Nucleated RBC % (auto) 0 % 01/16/23 05:50 Nucleated RBCs # 0.0 /100WBC 01/16/23 05:50 Sodium 142 mmol/L (136-145) 01/16/23 05:50 Potassium 3.9 mmol/L (3.5-5.1) 01/16/23 05:50 Chloride 105 mmol/L (98-107) 01/16/23 05:50 Carbon Dioxide 27 mmol/L (22-29) 01/16/23 05:50 Anion Gap 13.9 (5-19) 01/16/23 05:50 BUN 22 mg/dL (8-23) 01/16/23 05:50 Creatinine 0.9 mg/dL (0.5-0.9) 01/16/23 05:50 GFR Calculation Not Reportable 01/16/23 05:50 Glucose 92 mg/dL (65-115) 01/16/23 05:50 Calculated Osmolality 297 mOsm/kg (285-295) H 01/16/23 05:50 Calcium 9.6 mg/dL (8.5-10.5) 01/16/23 05:50 Total Bilirubin 0.5 mg/dL (0.15-1.2) 01/16/23 05:50 AST 20 U/L (0-32) 01/16/23 05:50 ALT 15 U/L (0-33) 01/16/23 05:50 Alkaline Phosphatase 62 U/L (35-105) 01/16/23 05:50 Total Protein 6.7 g/dL (6.6-8.7) 01/16/23 05:50 Albumin 4.2 g/dL (3.5-5.2) 01/16/23 05:50 Globulin 2.5 g/dL (1.3-4.6) 01/16/23 05:50 HCG, Qual Negative (Negative) 01/16/23 05:39 Urine Color Light yellow (Yellow) 01/16/23 05:39 Urine Appearance Cloudy (CLEAR) A 01/16/23 05:39 Urine pH 5 (5-7) 01/16/23 05:39 Ur Specific [place] 1.020 (1.005-1.030) 01/16/23 05:39 Urine Protein Neg (Negative) 01/16/23 05:39 Urine Glucose (UA) Norm (Normal) 01/16/23 05:39 Urine Ketones 1+ (Negative) H 01/16/23 05:39 Urine Blood Neg (Negative) 01/16/23 05:39 Urine Nitrate Negative (Negative) 01/16/23 05:39 Urine Bilirubin Neg (Negative) 01/16/23 05:39 Urine Urobilinogen Neg mg/dL (Negative) 01/16/23 05:39 Ur Leukocyte Esterase 2+ (Negative) H 01/16/23 05:39 Urine RBC 5-10 /hpf (0-2) H 01/16/23 05:39 Urine WBC 10-15 /hpf (0-5) H 01/16/23 05:39 Ur Squamous Epith Cells 15-25 /hpf (0-5) H 01/16/23 05:39 Ur Transition Epith Cell 5-10 /hpf 01/16/23 05:39 Amorphous Sediment Not Reportable 01/16/23 05:39 Urine Bacteria 1+ /hpf (NONE) H 01/16/23 05:39 Urine Mucus 3+ /hpf 01/16/23 05:39 Salicylates 0.7 mg/dL (3-10) L 01/16/23 05:50 Urine Opiates Screen Negative ng/mL (Negative) 01/16/23 05:39 Acetaminophen < 5.0 ug/mL (10-30) L 01/16/23 05:50 Ur Barbiturates Screen Negative ng/mL (Negative) 01/16/23 05:39 Ur Phencyclidine Scrn Negative ng/mL (Negative) 01/16/23 05:39 Ur Amphetamines Screen Negative ng/mL (Negative) 01/16/23 05:39 U Benzodiazepines Scrn Negative ng/mL (Negative) 01/16/23 05:39 Urine Cocaine Screen Negative ng/mL (Negative) 01/16/23 05:39 U Marijuana (THC) Screen Negative ng/mL (Negative) 01/16/23 05:39 Ethyl Alcohol < 10 mg/dL (0-10) 01/16/23 05:50 SARS-CoV-2 Ag (Rapid) negative (Negative) 01/16/23 05:52 Discharge Plan Discharge Patient Disposition: Home Clinical Impression: Dementia Condition: Stable Prescriptions: No Action metoprolol tartrate 25 mg tablet 25 mg PO BID Qty: 180 3RF ciprofloxacin HCl 500 mg tablet 500 mg PO Q12H Qty: 20 0RF aspirin 325 mg Tablet 325 mg PO QAM magnesium oxide 400 mg magnesium Tablet 400 mg PO DAILY PRN (Reason: Muscle Spasm) Prevagen 1 cap PO DAILY furosemide 20 mg tablet 20 mg PO DAILY PRN (Reason: Edema) Discharge Orders: Discharge ED (Routine); Ordered 01/16/23 Ordered By: Abraham North Referrals: Ying Bonilla MD [Primary Care Provider] - Discharge Diet: Usual diet Discharge Activity: Resume usual activity Patient Instructions: Opioid Safety, Pain Management Activity Restrictions/Additional Instructions: Follow-up with your primary care doctor to pursue potential intermediate placement. Case management make arrangements for outpatient consultation with neurology. Sign Out Sign Out Data: Patient Sign Out occurred on 01/16/23 at 13:55. Patient's care was discussed, and care was transferred from to Abraham North DO. Coding Level of Care Code ED Occupational Therapy Assistant for Renea Chakraborty
--- NOTE | 2023-01-16 05:43 | ECG_ITS ---
[facility] Test Date: 2023-01-16 Pat Name: Destiny Quintana Department: Room: Gender: Female [employer] Representative: : [id number] Requested By: Kavon Lucas Order Number: [id number] Lizbet MD: Sonam Williamson M.D. Measurements Intervals [place] Rate: 63 P: 81 MI: 167 QRS: -30 QRSD: 84 T: 42 QT: 401 QTc: 413 Interpretive Statements SINUS RHYTHM POSSIBLE ANTERIOR MYOCARDIAL INFARCTION , OF INDETERMINATE AGE [30 ms Q WAVE IN V3/V4, OR R < 0.2 mV IN V4] Compared to ECG 12/19/2022 10:19:27 Left-axis deviation no longer present Myocardial infarct finding still present Electronically Signed On 01-16-2023 10:58:59 CDT by Sonam Williamson M.D. [email or web address]
[2023-01-16 05:54] VITALS: BP 123/70; PULSE 58; RESP 16; O2SAT 98
[2023-01-16 05:58] LABS: Basophils % 0.4 %; Eosinophils # 0.1 10^3/uL (0.0-0.8); Eosinophils % 3.1 %; Hematocrit 36.2 % (36-47); Lymphocytes # 0.9 10^3/uL (0.8-4.8); Mean Corpuscular HGB Conc 31.5 g/dL (30-55); Mean Corpuscular Hemoglobin 29.8 pg (27-33); Mean Corpuscular Volume 94.8 fl (85-98); Mean Platelet Volume 12.1 fL (7.4-10.4); Monocytes # 0.3 10^3/uL (0.2-0.9); Monocytes % 7.2 %; Neutrophils # 3.21 10^3/uL (1.8-7.7); Neutrophils % 70.1 %; Nucleated Red Blood Cells % 0 %; Platelet Count 162 10^3/cmm (157-399); Red Blood Count 3.82 10^6/uL (3.85-5.65); Red Cell Distribution Width 14.6 % (12.1-15.1); White Blood Count 4.58 10^3/uL (3.29-11.43)
[2023-01-16 06:03] LABS: Add Urine Microscopic? YES; Bilirubin Urine Neg (Negative); Blood Urine Neg (Negative); Glucose Urine UA Norm (Normal); HCG Qualitative Urine. Negative (Negative); Ketones Urine 1+ (Negative); Leukocyte Esterase Urine 2+ (Negative); Nitrate Urine Negative (Negative); Protein Urine Neg (Negative); Urine Appearance Cloudy (CLEAR); Urine Color Light yellow (Yellow); Urobilinogen Urine Neg (Negative); pH Urine 5 (5-7)
[2023-01-16 06:04] LABS: Add Urine Culture? No; Bacteria Urine 1+ /hpf; Mucus Urine 3+ /hpf; Squamous Epithelial Cell Urine 15-25 /hpf (0-5)
[2023-01-16 06:09] LABS: Amphetamines Screen Urine Negative (Negative); Barbiturates Screen Urine Negative (Negative); Benzodiazepines Screen Urine Negative (Negative); Cocaine Screen Urine Negative (Negative); Opiate Screen Urine Negative (Negative); PCP Screen Urine Negative (Negative); THC Screen Urine Negative (Negative)
[2023-01-16 06:16] LABS: SARS Covid-2 Antigen negative (Negative)
[2023-01-16 06:21] LABS: Alanine Aminotransferase 15 U/L (0-33); Albumin Level 4.2 g/dL (3.5-5.2); Alkaline Phosphatase 62 U/L (35-105); Anion Gap 13.9 (5-19); Aspartate Amino Transferase 20 U/L (0-32); Blood Urea Nitrogen 22 mg/dL (8-23); Calcium 9.6 mg/dL (8.5-10.5); Carbon Dioxide 27 mmol/L (22-29); Chloride 105 mmol/L (98-107); Globulin 2.5 g/dL (1.3-4.6); Glucose 92 mg/dL (65-115); Osmolality Calculated 297 mOsm/kg (285-295); Potassium 3.9 mmol/L (3.5-5.1); Salicylate 0.7 mg/dL (3-10); Sodium 142 mmol/L (136-145); Total Bilirubin 0.5 mg/dL (0.15-1.2); Total Protein 6.7 g/dL (6.6-8.7)
[2023-01-16 06:23] LABS: Acetaminophen < 5.0 ug/mL (10-30); Alcohol Level < 10 mg/dL (0-10)
[2023-01-16 10:05] VITALS: BP 141/75; PULSE 59; RESP 16; O2SAT 99
[2023-01-16 14:00] VITALS: RESP 18; TEMP 36.6
--- NOTE | 2023-01-16 15:02 | PC.SOCIAL ---
Social Service Note Per Dr. Gaitan request CM to room to speak to patient and her daughter. Patient sees Dr. Bonilla for PCP and uses [facility]. Patient lives @ home alone, but damyeshather checks on her 2-3 x's/day. She is able to perform her ADL's independently. She does not use any equipment or have any services @ home. Patients daughter has DPOA and copy requested. She will return home @ this time and daughter will continue to care for her. Daughter does have several questions in regards to future care of patient as she is requiring more and more assistance. Daughter provided w/ information on DSS.gov so she can start a medicaid application. Discussed SNF vs ASL. Discussed that most [facility]SL will have a wait list for [facility] patients. Discussed SNF requirements and auth if going on MCR vs need to private pay or apply for [facility]. She verbalized understanding. At this time both daugther and patient report that they have no further questions.
[2023-01-16 15:27] VITALS: BP 92/53; PULSE 67; RESP 16; O2SAT 98
--- NOTE | 2023-01-16 15:47 | W.PM.NPUH&PS ---
Providers/Chief Complaint Primary Care Provider: Ying Bonilla MD Chief Complaint: HALLUCINATIONS HPI NPU History of Present Illness Destiny Quintana is a 77 year old female who presented with her daughter to the emergency department with complaints of visual hallucinations that the patient reports having existed for the past 6 weeks. The patient had reported that these hallucinations are not occurring here in the emergency department but that she frequently sees these at all times of the day in her home. She had reported that one of the hallucinations was of a girl that was an adolescent and that she had looked up on the computer and had felt like it was a missing girl from [facility]. The patient has no prior history of psychiatric illness. The patient's daughter had provided additional input and stated that she visits her mother every day in her home due to increased concerns over the past few months of her being more forgetful. She reports that she has been more aggravated and has had difficulties with weight loss as the daughter had suspected that the patient had not been cooking and had not been able to clean at her home. The patient had a head CT completed in October 2022 that revealed evidence of diffuse cortical atrophy. The patient reported no depression but admitted having problems with memory while being more forgetful. The patient had been treated recently for urinary tract infection. She had reported no acute stressors. She did not endorse any paranoia or concern regarding her neighbors. Past psychiatric history: None Drug and alcohol history: None Medical history: Pulmonary hypertension, history of bladder cancer, history of peripheral artery disease, chronic cystitis, history of cerebrovascular accident, osteoarthritis arthritis, proximal atrial fibrillation, history of orthostasis, Surgical history: Unknown Allergies: No known drug allergy Family psychiatric history: None reported Social history: The patient is and was 2 times in the past. She has no pets in her home. 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 She had lived in [place] for a while until she returned here. The patient's daughter lives in [facility] and has been helping the patient around the home for the past several months due to the patient's inability to take care of herself. She had no past history of trauma. There is no history of learning disability. Meds NPU Home Medications Medication Instructions Recorded Confirmed Last Taken Type metoprolol tartrate 25 mg tablet 25 mg PO BID #180 tabs 03/19/22 01/16/23 01/15/23 Rx Prevagen 1 cap PO DAILY 12/19/22 01/16/23 01/15/23 History aspirin 325 mg tablet 325 mg PO QAM 12/19/22 01/16/23 01/15/23 History furosemide 20 mg tablet 20 mg PO DAILY PRN Edema 12/19/22 01/16/23 Unknown History magnesium oxide 400 mg PO DAILY PRN Muscle Spasm 12/19/22 01/16/23 01/01/23 History hydrocodone 5 mg-acetaminophen 325 1 tab PO Q6H PRN pain #14 tabs 01/02/23 01/16/23 Unknown Rx mg tablet ondansetron 4 mg disintegrating 4 mg PO Q6H PRN nausea and 01/02/23 01/16/23 Unknown Rx tablet vomiting #14 tabs ciprofloxacin HCl 500 mg tablet 500 mg PO Q12H #20 tabs 01/06/23 01/16/23 01/15/23 Rx Allergies Allergy/AdvReac Type Severity Reaction Status Date / Time No Known Allergies Allergy Verified 01/16/23 07:47 PFSH NPU PFSH: Medical History Chest pain Chronic cystitis History of bladder cancer History of hematuria Incomplete bladder emptying Lung nodule Ovarian cystic mass Palpitations Paroxysmal atrial fibrillation Surgical History History of cataract removal with insertion of prosthetic lens History of ear surgery History of lateral meniscus repair of right knee History of right salpingo-oophorectomy Status post surgical removal and fulguration of bladder neoplasm Family History Father Colon cancer Sister Multiple myeloma Denies family history of Ovarian cancer Diabetes Dementia Heart disease Hypercholesteremia Breast cancer Hypertension Uterine cancer Thyroid disease Stroke Social History Smoking and tobacco status: former smoker Quit status (tobacco): has quit using tobacco Year quit tobacco: 2019 Alcohol intake: never Household members: none Number of children: 1 Number of grandchildren: 1 Current occupational status: retired 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 It revealed an extremely slow almost magnetic gait with extreme delay in movement while not clearly shuffling her feet. She was pleasant and cooperative on interview. There was no evidence of any abnormal involuntary motor movements tics or tremors appreciated. Her speech was slow in rate rhythm and prosody with only minor delay and reduction in speech at times with some word finding difficulties. She was alert and oriented to person and place along with a year and month but not day of the week or date. She was able to spell world forwards but could not spell it backwards. She was unable to follow three-step commands. Registration was 2 out of 3 words and recall after 5 minutes was 1 out of 3 words. The patient was reporting her mood as okay. Her affect appeared somewhat blunted. Her thought process was linear and logical. She denied any suicidal or homicidal ideation. She did not appear to be responding to internal stimuli. Her insight appeared limited. Her judgment was guarded. Her impulse control appeared fair. A clock drawing test was conducted and the patient appeared to spend a significant amount of time writing with an absolute inability to make any portion of the clock or write the numbers or the small or large hands of the clock. Vitals/I&O/Wt Last Vital Signs Temp 98 F 01/16/23 14:00 Pulse 67 01/16/23 15:27 Resp 16 01/16/23 15:27 BP 92/53 01/16/23 15:27 Pulse Ox 98 01/16/23 15:27 O2 Del Method Room Air 01/16/23 10:05 Weight last 48 hrs Weight 58.967 kg Data NPU 01/16/23 05:50 01/16/23 05:50 A&P Assessment and plan (1) Dementia: (2) Visual hallucinations: (3) Confusion: Plan 77-year-old white female with past history of cerebrovascular accident appears to show evidence of dementia along with the presence of visual hallucinations. Patient may be having a combination of events that may be contributing to her dementia and work-up may be necessary. It may be beneficial to treat her visual hallucinations as they could be associated with Lewy body dementia or parkinsonian dementia. Attestations NPU Medical Necessity Statement*: Inpatient workup for dementia and medical hospitalization may be necessary if patient is unable to return home without constant supervision. Patient if able to leave with daughter should get referral for neurology. Coding Level of Care Code Acute Code for g Fwd Diagnoses Dementia F03.90 Visual hallucinations R44.1 Confusion R41.0
--- NOTE | 2023-01-18 16:51 | PC.SOCIAL ---
Neurology Referral Referral message sent to clinic at this time. Clinic to contact patient with appt date/time.
== END 2023-01-16 15:54 | disposition home or self-care (01) ==
PROVIDERS: Emergency Medicine; Emergency Provider Family Medicine; PCP Family Medicine
DX: F03.90 Unspecified dementia, unspecified severity, without behavioral disturbance, psychotic disturbance, mood disturbance, and anxiety (principal); Z79.82 Long term (current) use of aspirin; Z20.822 Contact with and (suspected) exposure to COVID-19; Z87.891 Personal history of nicotine dependence; Z85.51 Personal history of malignant neoplasm of bladder
CPT/HCPCS: 36415; 80053; 80306; 80307; 81001; 81025; 85025; 87426; 93005; 99284

== ENCOUNTER 2023-01-22 17:37 | Inpatient (IN) | payer MEDICARE, MEDICAID, SELFPAY ==
[2023-01-22 17:43] VITALS: PULSE 61; RESP 17; TEMP 36.7; O2SAT 98
[2023-01-22 18:31] LABS: Basophils % 0.2 %; Eosinophils # 0.1 10^3/uL (0.0-0.8); Eosinophils % 0.8 %; Hematocrit 38.3 % (36-47); Lymphocytes # 0.9 10^3/uL (0.8-4.8); Lymphocytes % 9.6 %; Mean Corpuscular HGB Conc 31.9 g/dL (30-55); Mean Corpuscular Hemoglobin 29.8 pg (27-33); Mean Corpuscular Volume 93.6 fl (85-98); Mean Platelet Volume 12.4 fL (7.4-10.4); Monocytes # 0.6 10^3/uL (0.2-0.9); Monocytes % 6.2 %; Neutrophils # 7.51 10^3/uL (1.8-7.7); Nucleated Red Blood Cells % 0 %; Platelet Count 214 10^3/cmm (157-399); Red Blood Count 4.09 10^6/uL (3.85-5.65); Red Cell Distribution Width 14.6 % (12.1-15.1); White Blood Count 9.05 10^3/uL (3.29-11.43)
[2023-01-22 18:37] VITALS: BP 96/62; PULSE 62; RESP 18; O2SAT 98
--- NOTE | 2023-01-22 18:44 | ED_ITS ---
HPI - Abdominal Pain General: Chief Complaint: Abdominal Pain Stated Complaint: fall, abd pain, has hernia Time Seen by Provider: 01/22/23 18:31 Source: patient Mode of arrival: ambulatory Limitations: no limitations History of Present Illness: 77-year-old female states that she had fell onto concrete last night she has been having some left hip pain along with some abdominal soreness states pain is sharp in nature rates it a 6 out of 10 she denies hitting her head denies any other injuries. Associated Symptoms: Denies chills, diarrhea, fever(s), nausea and vomiting Review of Systems Const: Denies: fever(s) or chills Eyes: Denies: eye discomfort ENMT: Denies: throat pain or dental pain Card: Denies: chest pain Resp: Denies: dyspnea GI: Reports: abdominal pain; Denies: nausea, vomiting or diarrhea Musc: Reports: extremity pain; Denies: neck pain or back pain Skin/Breast: Denies: rash Neuro: Denies: headache(s) PFSH ED PFSH: Medical History Chest pain Chronic cystitis History of bladder cancer History of hematuria Incomplete bladder emptying Lung nodule Ovarian cystic mass Palpitations Paroxysmal atrial fibrillation Surgical History History of cataract removal with insertion of prosthetic lens History of ear surgery History of lateral meniscus repair of right knee History of right salpingo-oophorectomy Status post surgical removal and fulguration of bladder neoplasm Family History Father Colon cancer Sister Multiple myeloma Denies family history of Ovarian cancer Diabetes Dementia Heart disease Hypercholesteremia Breast cancer Hypertension Uterine cancer Thyroid disease Stroke Social History Smoking and tobacco status: former smoker Quit status (tobacco): has quit using tobacco Year quit tobacco: 2019 Alcohol intake: never Household members: none Number of children: 1 Number of grandchildren: 1 Current occupational status: 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 Joyce/Latter Day: Hoahaoism Special joyce needs: Yes Details: call geographic information system surveyor for final right Agree to transfusion: Yes Physical Exam Const: COMMON NORMALS: no acute distress, patient oriented x3 and healthy appearing HENMT: COMMON NORMALS: normocephalic and atraumatic HEAD & SCALP: normocephalic and atraumatic Neck/C-Spine: COMMON NORMALS: full ROM and supple Chest: COMMONS NORMALS: normal inspection of the chest and normal palpation of entire chest wall Resp: COMMON NORMALS: normal respiratory effort, No retractions, No use of accessory muscles and clear to auscultation bilaterally AUSCULTATION: clear to auscultation bilaterally Cardio: COMMON NORMALS: regular rate, regular rhythm and No murmurs present (Cardio) RATE: regular rate RHYTHM: regular rhythm GI: COMMON NORMALS: Normal to inspection, nondistended, normoactive bowel sounds present, Soft to palpation and no masses PALPATION: Yes Soft to palpation OTHER: lower abd tenderness Extremity: COMMON NORMALS: normal to inspection and full ROM Neuro: COMMON NORMALS: patient oriented x3, moves all extremities and no focal motor deficits Psych: COMMON NORMALS: mental status grossly normal, Normal thought process present and cooperative THOUGHT PROCESS: Normal thought process present Skin: COMMON NORMALS: no rashes or lesions noted and no wounds GENERAL SKIN EXAM: no rashes or lesions noted Course Vital Signs: Vital signs: Vital Signs Temperature 98.0 F 01/22/23 17:43 Pulse Rate 83 01/22/23 20:55 Respiratory Rate 16 01/22/23 20:55 Blood Pressure 130/83 01/22/23 20:55 Pulse Oximetry 98 01/22/23 20:55 Oxygen Delivery Me thod Room Air 01/22/23 18:37 MDM - Abdominal Pain Medical Decision Making Patient presents with an inguinal hernia did attempt to reduce unable to I did speak to surgery who plans on taking patient to the OR and will admit at this time. Medical Records I reviewed the patient's medical records. Lab Data I reviewed the patient's lab results. 01/22/23 18:17 01/22/23 18:17 Labs/Radiology: Radiology Impressions Abdomen/Pelvis CT 01/22/23 18:51 IMPRESSION: 1. There is a left inguinal hernia containing omental fat and a small bowel loop. Findings suspicious for strangulation of the hernia. 2. Incidental/nonacute findings are listed in the report. ADDENDUM: 01/22/232035 THIS REPORT CONTAINS FINDINGS THAT MAY BE CRITICAL TO PATIENT CARE. YOLI Colvin confirmed on 01/22/2023 at 8:34 PM CDT that a copy of the report containing critical findings was received and there were no questions. Laboratory Results WBC 9.05 10^3/uL (3.29-11.43) 01/22/23 18:17 RBC 4.09 10^6/uL (3.85-5.65) 01/22/23 18:17 Hgb 12.20 g/dL (11.27-16.99) 01/22/23 18:17 Hct 38.3 % (36-47) 01/22/23 18:17 MCV 93.6 fl (85-98) 01/22/23 18:17 MCH 29.8 pg (27-33) 01/22/23 18:17 MCHC 31.9 g/dL (30-55) 01/22/23 18:17 RDW 14.6 % (12.1-15.1) 01/22/23 18:17 Plt Count 214 10^3/cmm (157-399) 01/22/23 18:17 MPV 12.4 fL (7.4-10.4) H 01/22/23 18:17 Neut % (Auto) 83.0 % 01/22/23 18:17 Lymph % (Auto) 9.6 % 01/22/23 18:17 [place] % (Auto) 6.2 % 01/22/23 18:17 Eos % (Auto) 0.8 % 01/22/23 18:17 Baso % (Auto) 0.2 % 01/22/23 18:17 Neut # (Auto) 7.51 10^3/uL (1.8-7.7) 01/22/23 18:17 Lymph # (Auto) 0.9 10^3/uL (0.8-4.8) 01/22/23 18:17 [place] # (Auto) 0.6 10^3/uL (0.2-0.9) 01/22/23 18:17 Eos # (Auto) 0.1 10^3/uL (0.0-0.8) 01/22/23 18:17 Baso # (Auto) 0.0 10^3/uL (0.0-0.1) 01/22/23 18:17 Nucleated RBC % (auto) 0 % 01/22/23 18:17 Nucleated RBCs # 0.0 /100WBC 01/22/23 18:17 Sodium 138 mmol/L (136-145) 01/22/23 18:17 Potassium 3.6 mmol/L (3.5-5.1) 01/22/23 18:17 Chloride 101 mmol/L (98-107) 01/22/23 18:17 Carbon Dioxide 26 mmol/L (22-29) 01/22/23 18:17 Anion Gap 14.6 (5-19) 01/22/23 18:17 BUN 22 mg/dL (8-23) 01/22/23 18:17 Creatinine 0.9 mg/dL (0.5-0.9) 01/22/23 18:17 GFR Calculation Not Reportable 01/22/23 18:17 Glucose 91 mg/dL (65-115) 01/22/23 18:17 Calculated Osmolality 289 mOsm/kg (285-295) 01/22/23 18:17 Calcium 9.3 mg/dL (8.5-10.5) 01/22/23 18:17 Total Bilirubin 0.7 mg/dL (0.15-1.2) 01/22/23 18:17 AST 15 U/L (0-32) 01/22/23 18:17 ALT 12 U/L (0-33) 01/22/23 18:17 Alkaline Phosphatase 64 U/L (35-105) 01/22/23 18:17 Total Protein 6.9 g/dL (6.6-8.7) 01/22/23 18:17 Albumin 3.9 g/dL (3.5-5.2) 01/22/23 18:17 Globulin 3.0 g/dL (1.3-4.6) 01/22/23 18:17 Urine Color Yellow (Yellow) 01/22/23 20:36 Urine Appearance Sl hazy (CLEAR) A 01/22/23 20:36 Urine pH 5 (5-7) 01/22/23 20:36 Ur Specific Beth[place] 1.010 (1.005-1.030) 01/22/23 20:36 Urine Protein Neg (Negative) 01/22/23 20:36 Urine Glucose (UA) Norm (Normal) 01/22/23 20:36 Urine Ketones 1+ (Negative) H 01/22/23 20:36 Urine Blood Neg (Negative) 01/22/23 20:36 Urine Nitrate Negative (Negative) 01/22/23 20:36 Urine Bilirubin Neg (Negative) 01/22/23 20:36 Urine Urobilinogen Neg mg/dL (Negative) 01/22/23 20:36 Ur Leukocyte Esterase 1+ (Negative) H 01/22/23 20:36 Urine RBC 0-4 /hpf (0-2) H 01/22/23 20:36 Urine WBC 5-10 /hpf (0-5) H 01/22/23 20:36 Ur Squamous Epith Cells 0-4 /hpf (0-5) H 01/22/23 20:36 Ur Transition Epith Cell 5-10 /hpf 01/22/23 20:36 Amorphous Sediment Not Reportable 01/22/23 20:36 Urine Bacteria Trace /hpf (NONE) 01/22/23 20:36 Urine Mucus 2+ /hpf 01/22/23 20:36 All radiology interpretation(s) finalized by discharge Discharge Plan Discharge Patient Disposition: Admitted As Inpatient Admit Provider: Dann Navarro Clinical Impression: Incarcerated inguinal hernia Condition: Stable Coding Level of Care Code ED Meat Stocker for Renea Chakraborty
[2023-01-22 18:50] LABS: Alanine Aminotransferase 12 U/L (0-33); Albumin Level 3.9 g/dL (3.5-5.2); Alkaline Phosphatase 64 U/L (35-105); Anion Gap 14.6 (5-19); Aspartate Amino Transferase 15 U/L (0-32); Blood Urea Nitrogen 22 mg/dL (8-23); Calcium 9.3 mg/dL (8.5-10.5); Carbon Dioxide 26 mmol/L (22-29); Chloride 101 mmol/L (98-107); Creatinine Clr Calc Pharmacy 47.0493; Glucose 91 mg/dL (65-115); Osmolality Calculated 289 mOsm/kg (285-295); Potassium 3.6 mmol/L (3.5-5.1); Sodium 138 mmol/L (136-145); Total Bilirubin 0.7 mg/dL (0.15-1.2); Total Protein 6.9 g/dL (6.6-8.7)
--- NOTE | 2023-01-22 18:51 | CTR_ITS ---
PROCEDURE INFORMATION: Exam: CT Abdomen And Pelvis With Contrast Exam date and time: 01/22/2023 7:40 PM Age: 77 years old Clinical indication: Abdominal pain; Generalized; Additional info: Abd pain TECHNIQUE: Imaging protocol: Computed tomography of the abdomen and pelvis with contrast. Radiation optimization: All CT scans at this facility use at least one of these dose optimization techniques: automated exposure control; mA and/or kV adjustment per patient size (includes targeted exams where dose is matched to clinical indication); or iterative reconstruction. Contrast material: OMNI 350; Contrast volume: 100 ml; Contrast route: INTRAVENOUS (IV); REPORTING DATA: Count of CT and Cardiac NM exams in prior 12 months: This patient has received 2 known CTs and 0 known cardiac nuclear medicine studies in the 12 months prior to the current study. COMPARISON: CT abdomen pelvis w con* [id number] 01/02/2023 12:21 PM RADIATION DOSE METRICS: Total DLP (mGy-cm): 674.29 FINDINGS: Lungs: Dependent atelectasis in the lungs bilaterally. Heart: Stable moderate enlargement of the visualized portions of the heart. Liver: The liver is unremarkable. Gallbladder and bile ducts: The gallbladder is unremarkable. No biliary ductal dilatation. Pancreas: The pancreas is unremarkable. No pancreatic ductal dilatation. Spleen: The spleen is unremarkable. Adrenal glands: The right and left adrenal glands are unremarkable. Kidneys and ureters: The right and left kidneys are unremarkable. The right and left ureters are unremarkable. Stomach and bowel: No acute abnormality in the colon. No acute abnormality in the stomach. There is a left inguinal hernia containing omental fat and a small bowel loop. The small bowel is compressed as it enters and exits the hernia sac. Large amount of fluid in the hernia as well as inflammation of the herniated small bowel loop and bowel loops both proximal and distal to the hernia. Findings are suspicious for strangulation. Appendix: Appendix not definitely visualized. No inflammatory changes in the pericecal region however. Intraperitoneal space: No free intraperitoneal air. No ascites. No loculated fluid collections to suggest an abscess. Vasculature: Stable moderate atherosclerotic calcifications in the visualized arteries. No evidence for aortic aneurysm or aortic dissection. Hepatic veins, portal veins, splenic vein, superior mesenteric vein, renal veins, and inferior vena cava are patent. Lymph nodes: No lymphadenopathy. Urinary bladder: The bladder is mildly distended. Reproductive: The ovaries are not definitely visualized, not an expected in a postmenopausal female. This is likely due to ovarian atrophy. Bones/joints: Bones are diffusely osteopenic. Degenerative changes in the spine, sacroiliac joints, and hips. Significant spinal canal stenosis at L2-L3, L3-L4, and L4-L5. Moderate spinal canal stenosis at L5-S1. Mild spinal canal stenosis at L1-L2. Multilevel foraminal stenosis of varying severity in the visualized spine. Old, mild compression deformity of L1. Osseous findings are stable. Soft tissues: See under stomach and bowel . CT/CT abdomen pelvis w con* [id number] IMPRESSION: 1. There is a left inguinal hernia containing omental fat and a small bowel loop. Findings suspicious for strangulation of the hernia. 2. Incidental/nonacute findings are listed in the report.
[2023-01-22 18:53] VITALS: RESP 18; O2SAT 98
[2023-01-22] MEDS: sodium chloride 0.9% 1,000 ML 999 ML IV (18:53)
[2023-01-22] MEDS: morphine 4 mg/mL SDV 1 mL IVP (18:53)
[2023-01-22] MEDS: ondansetron 2 mg/ML SDV 2 mL 4 MG IVP (18:53)
[2023-01-22] MEDS: iohexol 350 mg/mL 500 mL Btl (per mL) IV (19:42)
[2023-01-22] MEDS: LORazepam 2 mg/mL INJ 1 mL 0.5 MG IVP (20:51)
[2023-01-22 20:52] LABS: Add Urine Microscopic? YES; Bilirubin Urine Neg (Negative); Blood Urine Neg (Negative); Glucose Urine UA Norm (Normal); Ketones Urine 1+ (Negative); Leukocyte Esterase Urine 1+ (Negative); Nitrate Urine Negative (Negative); Protein Urine Neg (Negative); Urine Appearance SL Hazy (CLEAR); Urine Color Yellow (Yellow); Urobilinogen Urine Neg (Negative); pH Urine 5 (5-7)
[2023-01-22 20:53] LABS: Add Urine Culture? No; Bacteria Urine TRACE /hpf; Mucus Urine 2+ /hpf; RBC Urine 0-4 /hpf (0-2); Squamous Epithelial Cell Urine 0-4 /hpf (0-5)
[2023-01-22] MEDS: HYDROmorphone 1 mg/mL INJ 1 mL 0.5 MG IVP (20:54)
[2023-01-22 20:55] VITALS: BP 130/83; PULSE 83; RESP 16; O2SAT 98
[2023-01-22] MEDS: piperacillin-tazobactam 3.375 GM in sodium chloride 0.9% (plus) 50 ML IV (21:24)
--- NOTE | 2023-01-22 21:44 | PM.CONSULT ---
Providers/Reason For Consult Consulting Physician/Specialty*: General surgery Reason for Consult*: Strangulated left inguinal hernia Primary Care Provider: Ying Bonilla MD History of Present Illness History of Present Illness Destiny Quintana is a 77 year old female with history of left inguinal hernia, she was planned for repair in 2 weeks. She presents today complaining of abdominal pain, according to the family member she fell into the ground yesterday after that she has been complaining of abdominal pain 6/10 out of intensity located in the left lower quadrant left groin. CT scan done at the emergency room show evidence of hyperattenuation of bowel wall at the level of the left groin without bowel loops going into inguinal hernia, concerning for strangulation. I was consulted for this finding. Interview obtained by talking with daughter, patient has dementia and therefore cannot participate in the interview Review of Systems Narrative: 10 point review of systems was not able to be conducted as patient has dementia. Medications/Allergies Home Medications Medication Instructions Recorded Confirmed Last Taken Type metoprolol tartrate 25 mg tablet 25 mg PO BID #180 tabs 03/19/22 01/19/23 01/15/23 Rx Prevagen 1 cap PO DAILY 12/19/22 01/19/23 01/15/23 History aspirin 325 mg tablet 325 mg PO QAM 12/19/22 01/19/23 01/15/23 History furosemide 20 mg tablet 20 mg PO DAILY PRN Edema 12/19/22 01/19/23 Unknown History magnesium oxide 400 mg PO DAILY PRN Muscle Spasm 12/19/22 01/19/23 01/01/23 History ciprofloxacin HCl 500 mg tablet 500 mg PO Q12H #20 tabs 01/06/23 01/19/23 01/15/23 Rx Allergies Allergy/AdvReac Type Severity Reaction Status Date / Time No Known Allergies Allergy Verified 01/22/23 17:50 PFSH Acute PFSH: Medical History Chest pain Chronic cystitis History of bladder cancer History of hematuria Incomplete bladder emptying Lung nodule Ovarian cystic mass Palpitations Paroxysmal atrial fibrillation Surgical History History of cataract removal with insertion of prosthetic lens History of ear surgery History of lateral meniscus repair of right knee History of right salpingo-oophorectomy Status post surgical removal and fulguration of bladder neoplasm Family History Father Colon cancer Sister Multiple myeloma Denies family history of Ovarian cancer Diabetes Dementia Heart disease Hypercholesteremia Breast cancer Hypertension Uterine cancer Thyroid disease Stroke Social History Smoking and tobacco status: former smoker Quit status (tobacco): has quit using tobacco Year quit tobacco: 2019 Alcohol intake: never Household members: none Number of children: 1 Number of grandchildren: 1 Current occupational status: retired 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 Nose : Mucous membranes are without erythema. Lungs : Equal chest rise bilaterally, no use of accessory muscles, trachea is midline. CV : Rate and rhythm are normal. Abdomen : Soft, there is tenderness in the left lower quadrant and suprapubic region, on the left inguinal region there is a incarcerated left inguinal hernia that is tender to touch, concerning for strangulation. Extremities : No edema. Upper extremities are normal bilaterally. Back : non-tender to palpation, no CVA tenderness. Data 01/22/23 18:17 01/22/23 18:17 A&P Assessment and plan (1) Strangulated inguinal hernia: (2) Dementia: (3) History of CVA (cerebrovascular accident): Plan After a complete history, physical examination and review of all available clinical data the following is my assessment. Is a patient with multiple comorbidities who presents with a possible incarcerated, unlikely strangulated left inguinal hernia. I think patient will require emergent surgery for possible open left inguinal hernia repair with mesh. In the case of spontaneous reduction in the OR before the incision time, I plan to do a diagnostic laparoscopy for evaluation of bowel viability, in the case of necrotic or devitalized bowel patient will require an exploratory laparotomy with bowel resection and primary anastomosis in addition to a hernia repair which will be done in a primary fashion. This has been explained to the patient and the family member. After an extensive discussion regarding risk benefits of the operation including the risk of bleeding, infection, damage to surrounding structures, chronic pain, need for additional interventions, need for ostomy creation, possibility of anastomotic leak, bowel perforation, the patient and family member Agree to proceed with the surgery. Patient will be emergently taken to the operating room for the described procedure. Postoperative management per hospitalist team is appreciated as patient has multiple medical comorbidities and noted to have dementia. Coding Level of Care Code 11119 Diagnoses Strangulated inguinal hernia K40.30 Dementia F03.90 History of CVA (cerebrovascular accident) Z86.73
--- NOTE | 2023-01-22 21:47 | P.HP_ITS ---
Providers/Chief Complaint Admitting Physician: Dann Navarro MD Primary Care Provider: Ying Bonilla MD Chief Complaint: fall, abd pain, has hernia History of Present Illness Destiny Quintana is a 77 year old female with a past medical history of pulmonary hypertension, atrial fibrillation not on anticoagulation as per patient choice, on full dose aspirin, history of dementia, history of bladder cancer, who presents to [facility] for abdominal pain, currently patient is alert to person, not to place, not to time, she answers some questions appropriately, but sometimes her answers are quite vague, and not clear, when asked her why she is in the hospital, she tells me that her abdomen is hurting her, and her back is hurting her, she points to her lower abdomen, she denies any nausea, she did have a mandrin orange at about 7 PM, she did have a bowel movement yesterday, she is not sure if it was bloody, she denies falling, denies any chest pain, currently she is quite uncomfortable, trying to get in the right position, daughter who is a healthcare power of bankruptcy attorney at bedside, helps with history taking, patient lives at home by herself, she was recent seen by general surgery, Dr. Calvin for left inguinal hernia, there is plans on outpatient surgery however today she started complaining of increasing abdominal pain, patient had a fall last night, no reported head trauma, or loss of consciousness, currently she is on course of antibiotics for UTI Review of Systems Const: Denies: fever(s) Card: Denies: chest pain Resp: Denies: dyspnea GI: Reports: abdominal pain Medications/Allergies Home Medications Medication Instructions Recorded Confirmed Last Taken Type metoprolol tartrate 25 mg tablet 25 mg PO BID #180 tabs 03/19/22 01/19/23 01/15/23 Rx Prevagen 1 cap PO DAILY 12/19/22 01/19/23 01/15/23 History aspirin 325 mg tablet 325 mg PO QAM 12/19/22 01/19/23 01/15/23 History furosemide 20 mg tablet 20 mg PO DAILY PRN Edema 12/19/22 01/19/23 Unknown History magnesium oxide 400 mg PO DAILY PRN Muscle Spasm 12/19/22 01/19/23 01/01/23 History ciprofloxacin HCl 500 mg tablet 500 mg PO Q12H #20 tabs 01/06/23 01/19/23 01/15/23 Rx Allergies Allergy/AdvReac Type Severity Reaction Status Date / Time No Known Allergies Allergy Verified 01/22/23 17:50 PFSH Acute PFSH: Medical History Chest pain Chronic cystitis History of bladder cancer History of hematuria Incomplete bladder emptying Lung nodule Ovarian cystic mass Palpitations Paroxysmal atrial fibrillation Surgical History History of cataract removal with insertion of prosthetic lens History of ear surgery History of lateral meniscus repair of right knee History of right salpingo-oophorectomy Status post surgical removal and fulguration of bladder neoplasm Family History Father Colon cancer Sister Multiple myeloma Denies family history of Ovarian cancer Diabetes Dementia Heart disease Hypercholesteremia Breast cancer Hypertension Uterine cancer Thyroid disease Stroke Social History Smoking and tobacco status: former smoker Quit status (tobacco): has quit using tobacco Year quit tobacco: 2019 Alcohol intake: never Household members: none Number of children: 1 Number of grandchildren: 1 Current occupational status: retired 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 Joyce/Shinto: Baptism Special joyce needs: Yes Details: call eligibility supervisor for final right Agree to transfusion: Yes Vitals/I&O/Wt Last Vital Signs Temp 98.0 F 01/22/23 17:43 Pulse 83 01/22/23 20:55 Resp 16 01/22/23 20:55 BP 130/83 01/22/23 20:55 Pulse Ox 98 01/22/23 20:55 O2 Del Method Room Air 01/22/23 18:37 Weight last 48 hrs Weight 58.06 kg Physical Exam Const: COMMON NORMALS: no acute distress EXAM LIMITATIONS: altered mental status ORIENTATION/CONSCIOUSNESS: Yes awake, Yes oriented to person and Yes confused; not oriented to place and not oriented to time HENMT: COMMON NORMALS: normocephalic HEAD & SCALP: normocephalic Eye: COMMON NORMALS: Equal, round and reactive pupils present and EOMs intact bilaterally Neck/C-Spine: COMMON NORMALS: no JVD Lymph: LYMPHATIC: no lymphadenopathy noted Resp: COMMON NORMALS: normal respiratory effort, No retractions, No use of accessory muscles and clear to auscultation bilaterally AUSCULTATION: clear to auscultation bilaterally Cardio: COMMON NORMALS: regular rate, regular rhythm, S1 normal heart sound present and S2 normal heart sound present RATE: regular rate RHYTHM: regular rhythm HEART SOUNDS: S1 normal heart sound present and S2 normal heart sound present GI: OTHER: Abdomen soft, distended, decreased bowel sounds in all 4 quadrants, no guarding, no rebound, no rigidity, does have abdominal tenderness in right and left lower quadrant Extremity: COMMON NORMALS: no calf tenderness and no pedal edema Neuro: COMMON NORMALS: CN's II-XII intact bilaterally and moves all extremities OTHER: Difficult to do neurologic testing as she does not follow commands at times Data 01/22/23 18:17 01/22/23 18:17 A&P Assessment and plan (1) Strangulated inguinal hernia: (2) Dementia: (3) History of CVA (cerebrovascular accident): (4) Paroxysmal atrial fibrillation: (5) Pulmonary hypertension: (6) History of bladder cancer: Plan Strangulated inguinal hernia -General surgery has been consulted -Plans on OR today -Morphine for pain -Zofran for nausea -DVT prophylaxis, Lovenox starting tomorrow Acute encephalopathy -Does have underlying dementia -Continue Rocephin for UTI -Will order head CT given her history of fall Complaints of back pain, hip pain after fall -X-ray lumbar spine, bilateral hips Paroxysmal atrial fibrillation, not on anticoagulation as per patient's choice, continue aspirin 325, continue metoprolol -Obtain EKG Goals of care, discussed with patient and daughter at bedside, for now full code Lovenox for DVT prophylaxis Attestations Medical Necessity Statement*: Patient requires hospitalization, inpatient, greater than 2 midnights for altered mental status, incarcerated inguinal hernia, Coding Level of Care Code Acute Code for g Fwd Diagnoses Strangulated inguinal hernia K40.30 Dementia F03.90 History of CVA (cerebrovascular accident) Z86.73 Paroxysmal atrial fibrillation I48.0 Pulmonary hypertension I27.20 History of bladder cancer Z85.51
--- NOTE | 2023-01-22 22:02 | P.ANESASSM_ITS ---
Pre-Anesthetic Assessment Height/Weight: Height 1.63 m Weight 58.06 kg Temp Pulse Resp BP Pulse Ox O2 Del Method 98.0 F 83 16 130/83 98 Room Air 01/22/23 17:43 01/22/23 20:55 01/22/23 20:55 01/22/23 20:55 01/22/23 20:55 01/22/23 18:37 Operation Date: 01/22/23 22:00 Proposed Procedures p Inguinal Hernia Repair Open Inguinal Hernia Repair w/ Mesh(Left) - Heraclio Reyes MD Familial anesthetic complications: None Was Beta Larry taken within 24 hours: Yes Was Clonidine taken within 24 hours: N/A Last intake: Mandarin orange at 4:30 Social No alcohol and No tobacco Exam alert, clear to auscultation bilaterally and regular rate & rhythm Airway Mallampati: Class II Dentition: false CV/HEM Atrial Fibrillation and Peripheral Vascular Disease mild pulm HTN Neuropsych Cerebrovascular Accident Anesthetic Plan ASA status: 3 Anesthesia: General Risk of > 500 ml blood loss (7ml/kg in children): No Medications/Allergies Home Medications Medication Instructions Recorded Confirmed Last Taken Type metoprolol tartrate 25 mg tablet 25 mg PO BID #180 tabs 03/19/22 01/19/23 01/15/23 Rx Prevagen 1 cap PO DAILY 12/19/22 01/19/23 01/15/23 History aspirin 325 mg tablet 325 mg PO QAM 12/19/22 01/19/23 01/15/23 History furosemide 20 mg tablet 20 mg PO DAILY PRN Edema 12/19/22 01/19/23 Unknown History magnesium oxide 400 mg PO DAILY PRN Muscle Spasm 12/19/22 01/19/23 01/01/23 History ciprofloxacin HCl 500 mg tablet 500 mg PO Q12H #20 tabs 01/06/23 01/19/23 01/15/23 Rx Allergies Allergy/AdvReac Type Severity Reaction Status Date / Time No Known Allergies Allergy Verified 01/22/23 17:50 PFSH Anesthesia Medical History Chest pain Chronic cystitis History of bladder cancer History of hematuria Incomplete bladder emptying Lung nodule Ovarian cystic mass Palpitations Paroxysmal atrial fibrillation Surgical History History of cataract removal with insertion of prosthetic lens History of ear surgery History of lateral meniscus repair of right knee History of right salpingo-oophorectomy Status post surgical removal and fulguration of bladder neoplasm Family History Father Colon cancer Sister Multiple myeloma Denies family history of Ovarian cancer Diabetes Dementia Heart disease Hypercholesteremia Breast cancer Hypertension Uterine cancer Thyroid disease Stroke Social History Smoking and tobacco status: former smoker Quit status (tobacco): has quit using tobacco Year quit tobacco: 2019 Alcohol intake: never Household members: none Number of children: 1 Number of grandchildren: 1 Current occupational status: retired 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 Joyce/Scientology: [employer] Special joyce needs: Yes Details: call manager material for final right Agree to transfusion: Yes Data Anesthesia 01/22/23 18:17 01/22/23 18:17 Short CBC 01/22/23 Range/Units 18:17 WBC 9.05 (3.29-11.43) 10^3/uL Hgb 12.20 (11.27-16.99) g/dL Hct 38.3 (36-47) % MCV 93.6 (85-98) fl Plt Count 214 (157-399) 10^3/cmm Neut % (Auto) 83.0 % Neut # (Auto) 7.51 (1.8-7.7) 10^3/uL BMP 01/22/23 18:17 Sodium 138 Potassium 3.6 Chloride 101 Carbon Dioxide 26 BUN 22 Creatinine 0.9 Glucose 91 Calcium 9.3 Liver Function 01/22/23 Range/Units 18:17 Total Bilirubin 0.7 (0.15-1.2) mg/dL AST 15 (0-32) U/L ALT 12 (0-33) U/L Alkaline Phosphatase 64 (35-105) U/L Albumin 3.9 (3.5-5.2) g/dL Urine 01/22/23 Range/Units 20:36 Urine Color Yellow (Yellow) Urine Appearance Sl hazy A (CLEAR) Urine pH 5 (5-7) Ur Specific [place] 1.010 (1.005-1.030) Urine Protein Neg (Negative) Urine Glucose (UA) Norm (Normal) Urine Ketones 1+ H (Negative) Urine Nitrate Negative (Negative) Urine Bilirubin Neg (Negative) Ur Leukocyte Esterase 1+ H (Negative) Urine RBC 0-4 H (0-2) /hpf Urine WBC 5-10 H (0-5) /hpf Cardiac Studies: Echocardiogram 11/20/21 Sestamibi Stress Test (Cardiology) 11/21
[2023-01-23] VITALS (31 sets, daily range): BP systolic 85–148; BP diastolic 46–90; PULSE 60–104; RESP 7–21; TEMP 35.9–36.9; O2SAT 94–100
[2023-01-23] MEDS: lidocaine-epi 2% 20 mL INJ 10 ML INJECTION (00:17)
[2023-01-23] MEDS: BUPivacaine 0.5% INJ 10 mL INJECTION (00:24)
--- NOTE | 2023-01-23 01:51 | P.OP_ITS ---
Operative Report Date of procedure: January 23, 2023 Pre-op diagnosis: Strangulated inguinal hernia Post-op diagnosis: Strangulated femoral hernia, strangulated the small bowel. Procedure done: Open left femoral hernia repair with mesh, diagnostic laparoscopy, laparotomy with small bowel resection and primary anastomosis. Implants: Bard mesh Specimens removed/disposition: Segment of small bowel Surgeon: Heraclio Reyes MD Science Editor: HECTOR OR Staff Estimated blood loss: 50 cc Complications: None Findings: There was a strangulated femoral hernia on the left side. Diagnostic laparoscopy revealed a 10 cm segment of ischemic bowel with about 2 cm of frankly devitalized bowel. Brief History: 77-year-old female with history of left inguinal hernia who was scheduled for repair later this month, presented today to the emergency room complaining of severe abdominal pain, hernia was noted to be incarcerated and a CT scan of the abdomen show evidence of possible strangulation with hyperattenuation of bowel loops in the left inguinal region. There is a discussion of the risk and benefits as discussed in my preop note, I decided to take the patient to the OR for a left inguinal hernia repair and related procedures. Procedure: The patient was placed in the supine position, general anesthesia was given. The abdomen was prepped and draped in the usual sterile fashion, timeout was conducted. A 6 cm left groin incision was made, the incision was deepened until the aponeurosis of the external oblique was identified, the aponeurosis of the external oblique was then sharply taking careful consideration of not injuring the underlying structures. The round ligament was then encircled and dissected for the surrounding tissues. No inguinal hernia was encountered, at this point it was evident that the hernia was below the floor of the inguinal canal, corresponding to a femoral hernia. I therefore transected the round ligament with electrocautery to allow for proper exposure of the floor of the inguinal canal. I then proceeded to open the floor of the inguinal canal using electrocautery. Upon entry of the preperitoneal space an incarcerated femoral hernia was noted, the hernia was unable to be manually reduce, therefore I decided to transect the inguinal ligament overlying the femoral canal to allow for manual reduction of the hernia. After this maneuver was conducted the hernia was able to be reduced, open reduction preperitoneal fat was noted to be in the hernia, no evidence of a small bowel or intra-abdominal contents was noted in the incarcerated segment. I reduced all the contents into the preperitoneal space and then proceeded with repair. I first repaired the inguinal ligament using #2-0 Prolene to approximate the fibers at the area of transection. I then approximated the conjoined tendon to Devin's ligament using #0 Prolene interrupted sutures, this to recreate the inguinal floor and obliterate the femoral space. After the approximation was complete I carried this approximation laterally bringing the conjoined tendon to the shelving edge of the inguinal ligament. I then made at 3 cm relaxing incision on the aponeurosis of the rectus muscle to reduce the tension on the repair. After the repair was completed I decided to place a mesh to reinforce the floor of the inguinal canal. I fixed the mesh to the pubic tubercle, conjoined tendon, shelving edge of the inguinal ligament with #0 Prolene. Hemostasis was verified. The aponeurosis of the external oblique was then closed using #2-0 Vicryl. The wound was then closed in layers using #3-0 Vicryl for Ramirez's fascia and subcutaneous tissue and #4 Monocryl for the skin. At this point since we were unable to identify the bowel that was clearly seen on CT scan, I decided to proceed with a diagnostic laparoscopy. I made a 1 cm infraumbilical incision, I then accessed the abdomen in an open technique and placed a 5 mm trocar, pneumoperitoneum was achieved and no evidence of injury was noted upon entry. Upon initial extension it was noticed that there was a segment of about 10 cm small bowel that appeared to be ischemic with about 2 cm of frankly devitalized bowel. I put an additional 5 mm port on the left lower quadrant in order to be able to manipulate the bowel. I allow for about 5 to 10 minutes of direct visualization after detorsion to ensure that her vascularity was compromised. Since there was no improvement in the vascularity of the compromised segment I decided to convert the procedure to a laparotomy and p roceed with a small bowel resection. Trocars were removed I then made the 7 cm infraumbilical laparotomy incision, an Elkin wound protector was placed into the wound. The small bowel was delivered through the wound, a 10 cm segment of ischemic bowel was noted, I then proceeded to resect the small bowel using 2 loads of a 75 mm blue load AMANDA stapler, the mesentery was then transected with LigaSure. The specimen was passed to the scrub nurse to be sent to pathology. I then created the [id number], functional end-to-end bowel anastomosis in an standard technique using a 75 mm blue load AMANDA stapler and a 60 mm blue load TA stapler to close the common channel. The mesenteric defect was then closed with #3-0 Vicryl, I also pursue the staple line with #3-0 Vicryl and placed several #3-0 Vicryl's along the anastomosis to reduce the tension into the staple line. The bowel was reduced into the abdominal cavity, no contamination was noted during this anastomosis. The Elkin wound protector was removed. We then changed gloves and instruments and proceeded with the closure of the abdominal cavity. I closed the abdominal cavity using #1 PDS sutures for the fascia and adalid for the skin. A sterile dressing was applied with Telfa and Tegaderm, on the left groin I placed Dermabond and overlying the Dermabond a compressive dressing. At the end of the procedure all counts were correct, patient tolerated well the procedure, was extubated and transferred to the PACU in stable condition.
--- NOTE | 2023-01-23 02:40 | PM.PACU ---
PACU note Narrative: pt not responding to commands, vss, 0.2mg Narcan given at 0230; 0233 pt arousable, following commands, vs remain stable; Discussed continuous pulse oximetry with BALLET MASTER/MISTRESS and orders placed. Dr Marley notified.
--- NOTE | 2023-01-23 03:01 | XR_ITS ---
WS: [id number] EXAMINATION: XR chest 1V portable [id number] REASON FOR EXAM: preop COMPARISON: 12/05/2022 ORDER DATE: 01/23/2023 7:06 AM TECHNIQUE: A single, portable frontal chest x-ray was obtained. X-RAY FINDINGS: The lungs are clear. Pleural spaces are clear. No pleural effusions or pneumothorax. Cardiomediastinal silhouette is unremarkable except for atherosclerotic aortic change no evidence for pulmonary edema. Soft tissue and osseous structures are unremarkable. There is pneumoperitoneum with air elevating the right hemidiaphragm IMPRESSION: Pneumoperitoneum, critical result called.
--- NOTE | 2023-01-23 03:01 | CT_ITS ---
WS: [id number] CT HEAD TECHNIQUE: Noncontrast CT of the head obtained from the skullbase to the vertex. CLINICAL INFORMATION: encephalopathy COMPARISON: CT 11/14/2022 DLP: 846.[address] scans at [facility] use at least one of these dose optimization techniques: automated e xposure control; mA and/or kV adjustment per patient size (includes targeted exams where dose is matc hed to clinical indication); or iterative reconstruction. FINDINGS: No evidence of intracranial hemorrhage or mass effect. Ventricular system and basal cisterns are gross nt. Mild small vessel changes with moderate parenchymal volume loss. No extra-axial fluid collections . No evidence of mass or mass effect. Calcified extra-axial lesion overlying the RIGHT insula compati ble with calcified incidental meningioma. This appears stable since 2019 measuring 1.3 x 0.7 cm. Paranasal sinuses and mastoid air cells are well aerated. .Normal visualized soft tissues. IMPRESSION: 1. No evidence of intracranial hemorrhage or mass effect. 2. Mild small vessel changes. Moderate parenchymal volume loss. 3. Intracranial vascular calcification. 4. Calcified extra-axial lesion overlying the RIGHT insula compatible with calcified meningioma. Thi s appears stable since 2019 measuring 1.3 x 0.7 cm. 5. No acute intracranial findings.
--- NOTE | 2023-01-23 03:01 | XR_ITS ---
WS: [id number] EXAMINATION: XR hip BI 2V wo/w pel [id number] REASON FOR EXAM: fall COMPARISON: None available. ORDER DATE: 01/23/2023 3:01 AM TECHNIQUE: As above. X-RAY FINDINGS/impression: There are no fractures or dislocations. Prominent degenerative change and narrowing with subchondral cystic change in the left femoral head w ith subchondral sclerosis possibly AVN versus osteoarthritis no crescent sign. Right hip unremarkable bony pelvis unremarkable
--- NOTE | 2023-01-23 03:01 | XR_ITS ---
WS: [id number] EXAMINATION: XR lumbar spine 2-3V* [id number] L-SPINE : 3 views REASON FOR EXAM: fall COMPARISON: 09/28/2020. ORDER DATE: 01/23/2023 3:01 AM FINDINGS: There is slight loss of superior cortical height of the L1 vertebral body unchanged from previous. There is anterolisthesis of L3 compared with L4 of approximately 5 mm. There is degenerative disc shamar rowing at L5-S1. There is an osteophyte at the anterior superior aspect of L1. The transverse processes and SI joints are normal. The oblique films show no spondylolysis or spondylolisthesis. There is calcification along the abdominal aorta but no aneurysm. Impression: 1. Slight loss of superior vertebral body height of L1 unchanged from previous consistent with an old compression fracture. 2. Degenerative disc disease at L5-S1. 3. Anterolisthesis of L3 compared with L4.
[2023-01-23] MEDS: pantoprazole 40 mg SDV IVP (03:32)
[2023-01-23] MEDS: acetaminophen 1,000 MG/100 ML PIGGYBACK 400 MG IV ×2 (03:32→20:22)
[2023-01-23] MEDS: ketorolac 30 mg/mL INJ 15 MG IVP ×3 (03:32→21:53)
[2023-01-23] MEDS: dextrose 5%-sod chloride 0.9% 1,000 ML 75 ML IV ×2 (03:33→20:21)
--- NOTE | 2023-01-23 03:43 | ECG_ITS ---
[facility] Test Date: 2023-01-23 Pat Name: Destiny Quintaan Department: Room: 260 Gender: Female Head Of Stock: : 1945 Requested By: Dann Navarro Order Number: [id number] Reading MD: Sonam Williamson M.D. Measurements Intervals [place] Rate: 110 P: 92 ME: 159 QRS: -31 QRSD: 85 T: 42 QT: 343 QTc: 464 Interpretive Statements SINUS TACHYCARDIA LEFT AXIS DEVIATION [QRS AXIS < -30] LOW QRS VOLTAGE IN EXTREMITY LEADS [QRS DEFLECTION < 0.5 mV IN LIMB LEADS] POSSIBLE INFERIOR MYOCARDIAL INFARCTION , PROBABLY OLD [30 ms Q WAVE IN II/aVF] Compared to ECG 01/16/2023 05:43:47 Left-axis deviation now present Low QRS voltage now present Sinus rhythm no longer present Myocardial infarct finding still present Electronically Signed On 01-23-2023 5:23:47 CDT by Sonam Williamson M.D. [id number]
[2023-01-23 04:41] LABS: Hematocrit 34.1 % (36-47); Lymphocytes # 0.2 10^3/uL (0.8-4.8); Lymphocytes % 1.5 %; Mean Corpuscular HGB Conc 32.3 g/dL (30-55); Mean Corpuscular Hemoglobin 29.9 pg (27-33); Mean Corpuscular Volume 92.7 fl (85-98); Mean Platelet Volume 12.3 fL (7.4-10.4); Monocytes # 0.6 10^3/uL (0.2-0.9); Monocytes % 5.1 %; Neutrophils # 10.16 10^3/uL (1.8-7.7); Neutrophils % 93.1 %; Nucleated Red Blood Cells % 0 %; Platelet Count 171 10^3/cmm (157-399); Red Blood Count 3.68 10^6/uL (3.85-5.65); Red Cell Distribution Width 14.6 % (12.1-15.1); White Blood Count 10.91 10^3/uL (3.29-11.43)
[2023-01-23 04:53] LABS: INR 1.15 (0.8-1.2)
[2023-01-23 05:01] LABS: Magnesium 1.9 mg/dL (1.7-2.3); Troponin(5th) Baseline 42 ng/L (0-10)
[2023-01-23 05:02] LABS: Alanine Aminotransferase 10 U/L (0-33); Albumin Level 3.8 g/dL (3.5-5.2); Alkaline Phosphatase 56 U/L (35-105); Anion Gap 14.3 (5-19); Aspartate Amino Transferase 13 U/L (0-32); Blood Urea Nitrogen 15 mg/dL (8-23); Calcium 8.3 mg/dL (8.5-10.5); Carbon Dioxide 23 mmol/L (22-29); Chloride 105 mmol/L (98-107); Globulin 2.3 g/dL (1.3-4.6); Glucose 170 mg/dL (65-115); Osmolality Calculated 293 mOsm/kg (285-295); Potassium 3.3 mmol/L (3.5-5.1); Sodium 139 mmol/L (136-145); Total Bilirubin 0.7 mg/dL (0.15-1.2); Total Protein 6.1 g/dL (6.6-8.7)
[2023-01-23 05:26] LABS: Thyroid Stimulating Hormone 3.69 uIU/mL (0.27-4.20)
[2023-01-23 06:57] LABS: Troponin 5 2HR 41.25 ng/L (0-10)
[2023-01-23 06:58] LABS: Troponin 5 2HR Delta -0.75 ABS# (0-10)
[2023-01-23 07:21] LABS: ABG PCO2 40.4 mmHg (35-45); ABG PH Result 7.39 (7.35-7.45); Arterial Blood Gas Hematocrit 33.7 % (37-47); Base Excess ABG -0.2 mmol/L (-2.0-2.0); Blood Gas Allen Test Pos; Blood Gas Operator Identificat MONRO; Blood Gas Sample Site Radial, right; Blood Gas Sample Type Arterial; HCO3 ABG 24.7 mmol/L (22-26); Oxygen Device ROOM AIR
--- NOTE | 2023-01-23 09:57 | PC.OT ---
Patient on hold until tomorrow 01/24/2023 for OT evaluation due to major abdominal surgery and possible findings of air in abdomen as told by Physical Therapy and Nursing.
--- NOTE | 2023-01-23 10:38 | PM.PN ---
Subjective Subjective: Patient is 8 hours postop status post left femoral hernia repair, diagnostic laparoscopy and exploratory laparotomy bowel resection. Patient is awake and in good spirits, minimal abdominal pain, no complaining of groin pain. She has not ambulated yet. La catheter is in place with clear urine output. Vitals/I&O/Wt Last Vital Signs Temp 97.6 F 01/23/23 08:24 Pulse 60 01/23/23 09:15 Resp 16 01/23/23 09:15 BP 88/49 01/23/23 09:15 Pulse Ox 95 01/23/23 09:15 O2 Del Method Room Air 01/23/23 09:15 O2 Flow Rate 2 01/23/23 05:00 01/22/23 01/23/23 01/23/23 22:59 06:59 14:59 Intake Total 1750 / 1750 Output Total 2450 / 2450 Balance -700 / -700 Weight last 48 hrs Weight 128 lb Physical Exam Narrative: General : Patient is alert but is disoriented Head : Normal cephalic, a-traumatic. Nose : Mucous membranes are without erythema. Lungs : Equal chest rise bilaterally, no use of accessory muscles, trachea is midline. CV : Rate and rhythm are normal. Abdomen : Abdomen is soft, minimally tender to palpation, surgical incisions are covered with dressing Extremities : No edema. Upper extremities are normal bilaterally. Back : non-tender to palpation, no CVA tenderness. Urinary Catheter Management: La: Cath Placed During This Visit: yes Reason for Continuing Indwelling Catheter: Acute Urinary Retention or Obstruction Urinary Catheter Date of Insertion: 01/22/23 Urinary Catheter Time of Insertion: 11:02 Data 01/23/23 04:20 01/23/23 04:20 A&P Assessment and plan (1) Femoral hernia of left side with gangrene and obstruction: Plan Good postoperative progress, patient is doing well. She will require intensive physical therapy to recover, patient will require to ambulate, when she is ambulating I will consider removing La catheter this will likely happen next 24 to 48 hours. I will wait for return of bowel function before starting food, as she has a first intestinal anastomosis. We will continue antibiotics for 48 hours more as surgical prophylaxis. I appreciate all of their care by hospitalist team. Attestations Medical Necessity Statement*: Patient will require 48 to 72 hours of hospital stay after left femoral hernia repair and small bowel resection. Coding Level of Care Code Acute Code for Chg Fwd Diagnoses Femoral hernia of left side with gangrene and obstruction K41.40
[2023-01-23 10:48] LABS: Troponin 5 6HR 40.73 ng/L (0-10)
[2023-01-23 10:53] LABS: Troponin 5 6HR Delta -1.27 ng/L (0-12)
--- NOTE | 2023-01-23 10:57 | PM.PN ---
Subjective Subjective: Patient in good spirits Status post surgery To work with PT today We will remove La catheter once she starts work with PT She is still n.p.o. No BM yet Vitals/I&O/Wt Last Vital Signs Temp 97.6 F 01/23/23 08:24 Pulse 60 01/23/23 09:15 Resp 16 01/23/23 09:15 BP 88/49 01/23/23 09:15 Pulse Ox 95 01/23/23 09:15 O2 Del Method Room Air 01/23/23 09:15 O2 Flow Rate 2 01/23/23 05:00 01/22/23 01/23/23 01/23/23 22:59 06:59 14:59 Intake Total 1750 / 1750 Output Total 2450 / 2450 Balance -700 / -700 Weight last 48 hrs Weight 58.06 kg Physical Exam Narrative: Patient in good spirits Hemodynamically stable Dressing soaked with blood La catheter in place Clinical looks dehydrated S1, S2 Nonfocal neuro exam Urinary Catheter Management: La: Cath Placed During This Visit: yes Reason for Continuing Indwelling Catheter: Acute Urinary Retention or Obstruction Urinary Catheter Date of Insertion: 01/22/23 Urinary Catheter Time of Insertion: 11:02 Data 01/23/23 04:20 01/23/23 04:20 A&P Assessment and plan (1) Femoral hernia of left side with gangrene and obstruction: (2) Strangulated inguinal hernia: (3) Dehydration: (4) Confusion: (5) Visual hallucinations: (6) Paroxysmal atrial fibrillation: (7) Chronic cystitis: (8) Memory changes: Plan Postop day 1 No postoperative complication Waiting for bowel movement patient has not passed gas no BM yet I will request dietary consultation and start PPN because patient is dehydrated with low blood pressure I will change antibiotics to Zosyn to cover anaerobes and gram-negative Continue IV fluids Full code Continue PT once she is able to work with PT we can remove La catheter Attestations Medical Necessity Statement*: Continue medical management Diagnoses Femoral hernia of left side with gangrene and obstruction K41.40 Strangulated inguinal hernia K40.30 Dehydration E86.0 Confusion R41.0 Visual hallucinations R44.1 Paroxysmal atrial fibrillation I48.0 Chronic cystitis N30.20 Memory changes R41.3
--- NOTE | 2023-01-23 12:10 | PC.NUTR ---
Consult for PPN received. Recommend PPN starting @ 12 mls/hr and increasing 10 mls Q8H until goal rate of 42 mls/hr is reached, to include MV and standard electrolytes and fat emulsion 20 grams/[address] for details.
[2023-01-23] MEDS: piperacillin-tazobactam 3.375 GM in sodium chloride 0.9% (plus) 50 ML IV (21:06)
--- NOTE | 2023-01-23 22:33 | PC.NURSE ---
Addendum entered by Emelia Hernández LPN 01/23/23 22:36: time lipids and PPN hung was at 1441 Original Note: PPN scanned but was already running and was hung with lipds at 1300 today, adjusted to 22 ml/hr
[2023-01-23] MEDS: AA-Dex 4.25%-5% w/Lytes 1,000 ML with multivitamin inj 10 ML 22 ML IV (22:35)
[2023-01-24] VITALS (11 sets, daily range): BP systolic 97–125; BP diastolic 58–76; PULSE 60–70; RESP 14–18; TEMP 36.3–36.9; O2SAT 92–98
[2023-01-24] MEDS: HYDROmorphone 1 mg/mL INJ 1 mL 0.4 MG IVP ×2 (00:43→09:56)
[2023-01-24] MEDS: acetaminophen 1,000 MG/100 ML PIGGYBACK 400 MG IV ×3 (02:32→18:20)
[2023-01-24] MEDS: piperacillin-tazobactam 3.375 GM in sodium chloride 0.9% (plus) 50 ML IV ×3 (02:53→18:30)
[2023-01-24] MEDS: ketorolac 30 mg/mL INJ 15 MG IVP ×4 (03:41→21:44)
[2023-01-24] MEDS: pantoprazole 40 mg SDV IVP (03:41)
[2023-01-24 05:27] LABS: Basophils % 0.1 %; Eosinophils % 0.1 %; Hematocrit 28.4 % (36-47); Lymphocytes # 0.6 10^3/uL (0.8-4.8); Lymphocytes % 8.3 %; Mean Corpuscular Hemoglobin 29.6 pg (27-33); Mean Corpuscular Volume 95.6 fl (85-98); Mean Platelet Volume 12.7 fL (7.4-10.4); Monocytes # 0.5 10^3/uL (0.2-0.9); Monocytes % 6.3 %; Neutrophils # 6.45 10^3/uL (1.8-7.7); Neutrophils % 84.8 %; Nucleated Red Blood Cells % 0 %; Platelet Count 147 10^3/cmm (157-399); Red Blood Count 2.97 10^6/uL (3.85-5.65); Red Cell Distribution Width 14.6 % (12.1-15.1); White Blood Count 7.61 10^3/uL (3.29-11.43)
[2023-01-24 06:00] LABS: Anion Gap 11.2 (5-19); Blood Urea Nitrogen 15 mg/dL (8-23); Calcium 8.1 mg/dL (8.5-10.5); Carbon Dioxide 24 mmol/L (22-29); Chloride 109 mmol/L (98-107); Glucose 108 mg/dL (65-115); Osmolality Calculated 293 mOsm/kg (285-295); Potassium 3.2 mmol/L (3.5-5.1); Sodium 141 mmol/L (136-145)
--- NOTE | 2023-01-24 09:08 | P.PN_ITS ---
Subjective Subjective: This morning patient was very pleasant and cooperative In good spirits She did not complain of any abdominal pain Patient is endorsing that she is able to pass flatus and had a bowel movement however no BM as per nursing staff Patient is getting PPN, adequate urine output Afebrile Hemoglobin 8.8 could be dilutional I do see readings of low blood pressure with tachycardia monitor H&H Vitals/I&O/Wt Last Vital Signs Temp 98.1 F 01/24/23 07:41 Pulse 63 01/24/23 07:41 Resp 16 01/24/23 07:41 BP 101/61 01/24/23 07:41 Pulse Ox 96 01/24/23 07:41 O2 Del Method Room Air 01/24/23 07:41 O2 Flow Rate 2 01/23/23 05:00 01/23/23 01/24/23 01/24/23 22:59 06:59 14:59 Intake Total 1100 / 1100 426.367 / 1526.367 50 / 50 Output Total 1300 / 1300 350 / 1650 Balance -200 / -200 76.367 / -123.633 50 / 50 Weight last 48 hrs Weight 58.06 kg Physical Exam Narrative: Signs of dehydration present Abdomen soft Dressing soaked with blood No active drainage Pleasant and cooperative In good spirits Answer my question appropriately No new focal deficit Currently on room air Hemodynamically stable Urinary Catheter Management: La: Cath Placed During This Visit: yes Reason for Continuing Indwelling Catheter: Acute Urinary Retention or Obstruction Urinary Catheter Date of Insertion: 01/22/23 Urinary Catheter Time of Insertion: 11:02 Data 01/24/23 04:38 01/24/23 04:38 A&P Assessment and plan (1) Dehydration: (2) Femoral hernia of left side with gangrene and obstruction: (3) Strangulated inguinal hernia: (4) Visual hallucinations: (5) Confusion: (6) History of CVA (cerebrovascular accident): (7) Memory changes: (8) Chronic cystitis: (9) Peripheral arterial disease: (10) Paroxysmal atrial fibrillation: Plan Postop day 2 Drop in hemoglobin noted, likely dilutional Recheck H&H Continue PPN and IV fluids No BM yet Patient is not a reliable historian stating that she had a bowel movement and passing flatus Abdomen however is soft Continue antibiotics with Zosyn coverage Afebrile No significant leukocytosis Full code Patient is stating that she is from [facility] We can remove La catheter by tomorrow Diet will be changed once she gets a bowel movement Attestations Medical Necessity Statement*: Continue medical management Coding Level of Care Code 56765 Moderate MDM includes number and complexity of problems actively addressed during encounter, amount and/or complexity of data reviewed/ordered and described risk of complication, morbidity or mortality of management as doc umented Diagnoses Dehydration E86.0 Femoral hernia of left side with gangrene and obstruction K41.40 Strangulated inguinal hernia K40.30 Visual hallucinations R44.1 Confusion R41.0 History of CVA (cerebrovascular accident) Z86.73 Memory changes R41.3 Chronic cystitis N30.20 Peripheral arterial disease I73.9 Paroxysmal atrial fibrillation I48.0
[2023-01-24] MEDS: tamsulosin 0.4 mg Capsule PO (09:55)
--- NOTE | 2023-01-24 09:56 | P.PN_ITS ---
Subjective Subjective: Postoperative day 1 status post open left femoral hernia repair, laparotomy with resection of necrotic small bowel. Patient is doing better this morning, pain is controlled, she is more oriented. Has not passed gas or had a bowel movement yet, has not had any episodes of nausea or vomit. Vitals/I&O/Wt Last Vital Signs Temp 98.1 F 01/24/23 07:41 Pulse 63 01/24/23 07:41 Resp 16 01/24/23 07:41 BP 101/61 01/24/23 07:41 Pulse Ox 96 01/24/23 07:41 O2 Del Method Room Air 01/24/23 07:41 O2 Flow Rate 2 01/23/23 05:00 01/23/23 01/24/23 01/24/23 22:59 06:59 14:59 Intake Total 1100 / 1100 426.367 / 1526.367 50 / 50 Output Total 1300 / 1300 350 / 1650 Balance -200 / -200 76.367 / -123.633 50 / 50 Weight last 48 hrs Weight 128 lb Physical Exam GI: OTHER: Abdomen is soft, appropriately tender to palpation, nondistended, surgical incisions are healing well. On the left groin the surgical incision is covered with a compressive dressing, no evidence of hernia recurrence. Urinary Catheter Management: La: Cath Placed During This Visit: yes Reason for Continuing Indwelling Catheter: Acute Urinary Retention or Obstruction Urinary Catheter Date of Insertion: 01/22/23 Urinary Catheter Time of Insertion: 11:02 Data 01/24/23 04:38 01/24/23 04:38 A&P Assessment and plan (1) Femoral hernia of left side with gangrene and obstruction: Plan Patient shows adequate postoperative progress, will continue with pain control w ith IV medications including IV Tylenol to allow patient to have adequate pain control and be able to ambulate. She will remain n.p.o. until there is evidence of some bowel function, if by tomorrow there is no evidence of bowel function will be inclined to do a clear trial to evaluate for bowel function. In addition I have started the patient on tamsulosin, upon retrospective review of CT scan done during this admission and previous admission it is apparent that the patient had a probably chronic urinary obstruction, as evidenced by a distended bladder in both CT scans and the finding of more than 700 cc of output after insertion of La catheter during the OR. Therefore I would like to have the tamsulosin for about 4 to 5 days to allow it to work before removing help La catheter as a bladder distention may increase the risk of early hernia recurrence as this is a very rash repair. Otherwise we will continue with daily ambulation and other management per hospitalist team is appreciated. Attestations Medical Necessity Statement*: Patient will require 48 to 72 hours of hospital stay for the management of a strangulated femoral hernia s/p repair with a small bowel resection. Coding Level of Care Code Acute Code for Chg Fwd Diagnoses Femoral hernia of left side with gangrene and obstruction K41.40
[2023-01-24 10:14] LABS: Hematocrit 33.6 % (36-47)
[2023-01-24] MEDS: dextrose 5%-sod chloride 0.9% 1,000 ML 75 ML IV (10:55)
[2023-01-24] MEDS: lidocaine 1% 5 ML in potassium chloride premix 100 ML 26.25 ML IV (10:55)
[2023-01-24] MEDS: oxyCODONE 5 mg IR Tab/Cap PO ×3 (14:34→23:17)
[2023-01-24] MEDS: AA-Dex 4.25%-5% w/Lytes 1,000 ML with multivitamin inj 10 ML 42 ML IV (19:14)
[2023-01-24] MEDS: enoxaparin 40 mg/0.4 mL Syringe SUBCUT (21:21)
[2023-01-25] VITALS (7 sets, daily range): BP systolic 93–130; BP diastolic 54–69; PULSE 74–91; RESP 18–20; TEMP 36.7–37.9; O2SAT 94–97
[2023-01-25] MEDS: HYDROmorphone 1 mg/mL INJ 1 mL 0.4 MG IVP (00:51)
[2023-01-25] MEDS: ketorolac 30 mg/mL INJ 15 MG IVP ×4 (02:14→21:03)
[2023-01-25] MEDS: pantoprazole 40 mg SDV IVP (02:14)
[2023-01-25] MEDS: piperacillin-tazobactam 3.375 GM in sodium chloride 0.9% (plus) 50 ML IV ×3 (02:21→19:20)
[2023-01-25] MEDS: dextrose 5%-sod chloride 0.9% 1,000 ML 75 ML IV ×2 (02:22→15:53)
[2023-01-25] MEDS: haloperidol inj 5 mg/mL INJ 1 mL 1 MG IM (03:14)
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
--- NOTE | 2023-01-25 03:47 | PC.NURSE ---
pt yelling out for Help, nurse asked what we could help and pt stated nothing from you , another staff asked when pt began yelling out for Help again and pt told staff, I don't know, you should know that's why I am here .
[2023-01-25 05:44] LABS: Basophils % 0.1 %; Eosinophils # 0.1 10^3/uL (0.0-0.8); Eosinophils % 1.4 %; Hematocrit 37.8 % (36-47); Lymphocytes # 0.4 10^3/uL (0.8-4.8); Lymphocytes % 4.9 %; Mean Corpuscular Hemoglobin 30.2 pg (27-33); Mean Corpuscular Volume 94.3 fl (85-98); Mean Platelet Volume 12.2 fL (7.4-10.4); Monocytes # 0.3 10^3/uL (0.2-0.9); Monocytes % 4.1 %; Neutrophils # 6.93 10^3/uL (1.8-7.7); Nucleated Red Blood Cells % 0 %; Platelet Count 122 10^3/cmm (157-399); Red Blood Count 4.01 10^6/uL (3.85-5.65); Red Cell Distribution Width 14.5 % (12.1-15.1); White Blood Count 7.79 10^3/uL (3.29-11.43)
[2023-01-25 06:14] LABS: Anion Gap 10.5 (5-19); Blood Urea Nitrogen 12 mg/dL (8-23); Calcium 7.9 mg/dL (8.5-10.5); Carbon Dioxide 25 mmol/L (22-29); Chloride 110 mmol/L (98-107); Glucose 119 mg/dL (65-115); Osmolality Calculated 295 mOsm/kg (285-295); Potassium 3.5 mmol/L (3.5-5.1); Sodium 142 mmol/L (136-145)
[2023-01-25] MEDS: tamsulosin 0.4 mg Capsule PO (09:19)
--- NOTE | 2023-01-25 10:27 | PM.PN ---
Subjective Subjective: Plans to start clear liquid diet Continue D5 and PPN No BM or patient endorsing passing flatus however not a good historian Required one-to-one supervision Vitals/I&O/Wt Last Vital Signs Temp 98.4 F 01/25/23 07:09 Pulse 81 01/25/23 07:09 Resp 20 H 01/25/23 07:09 BP 130/68 01/25/23 07:09 Pulse Ox 94 01/25/23 07:09 O2 Del Method Room Air 01/25/23 07:09 O2 Flow Rate 2 01/23/23 05:00 01/24/23 01/25/23 01/25/23 22:59 06:59 14:59 Intake Total 469.237 / 2044.100 983.75 / 3027.850 Output Total 1075 / 1075 750 / 1825 600 / 600 Balance -605.763 / 969.100 233.75 / 1202.850 -600 / -600 Physical Exam Narrative: Patient laying supine Signs of dehydration present Abdomen soft Bowel sounds sluggish La catheter with clear urine GCS 15 Pleasant and cooperative S1, S2 Currently on room air Urinary Catheter Management: La: Cath Placed During This Visit: yes Reason for Continuing Indwelling Catheter: Acute Urinary Retention or Obstruction Urinary Catheter Date of Insertion: 01/22/23 Urinary Catheter Time of Insertion: 11:02 Data 01/25/23 05:29 01/25/23 05:29 A&P Assessment and plan (1) Dehydration: (2) Femoral hernia of left side with gangrene and obstruction: (3) Strangulated inguinal hernia: (4) Visual hallucinations: (5) Confusion: (6) History of CVA (cerebrovascular accident): (7) Memory changes: (8) Chronic cystitis: (9) Paroxysmal atrial fibrillation: Plan Postoperative ileus Bowel sounds sluggish General surgery recommended starting diet to see if she will get a bowel movement Continue PPN and D5 until she is able to eat Plan is to [facility] back [facility] once her bowel movement returns A-fib without RVR Not a candidate of anticoagulation Full code we can use Haldol/Seroquel as needed Opioids on board Urinary retention General surgery wants to keep La catheter in for at least 4 days to keep bladder decompressed to help her with healing Attestations Medical Necessity Statement*: Continue medical management Diagnoses Dehydration E86.0 Femoral hernia of left side with gangrene and obstruction K41.40 Strangulated inguinal hernia K40.30 Visual hallucinations R44.1 Confusion R41.0 History of CVA (cerebrovascular accident) Z86.73 Memory changes R41.3 Chronic cystitis N30.20 Paroxysmal atrial fibrillation I48.0
--- NOTE | 2023-01-25 10:32 | PM.PN ---
Subjective Subjective: 77-year-old female postoperative day 2 status post open repair of left femoral hernia for strangulated femoral hernia, and small bowel resection. Patient remains confused, per family members she is still having significant cognitive problems. She complains of intermittent abdominal pain, has not had any nausea or vomit. Has not had any bowel movements yet. She states that she has passed gas but is unreliable due to cognitive decline. Patient has been able to ambulate with physical therapy but majority of the time she stays in bed. Vitals/I&O/Wt Last Vital Signs Temp 98.4 F 01/25/23 07:09 Pulse 81 01/25/23 07:09 Resp 20 H 01/25/23 07:09 BP 130/68 01/25/23 07:09 Pulse Ox 94 01/25/23 07:09 O2 Del Method Room Air 01/25/23 07:09 O2 Flow Rate 2 01/23/23 05:00 01/24/23 01/25/23 01/25/23 22:59 06:59 14:59 Intake Total 469.237 / 2044.100 983.75 / 3027.850 Output Total 1075 / 1075 750 / 1825 600 / 600 Balance -605.763 / 969.100 233.75 / 1202.850 -600 / -600 Physical Exam Narrative: General : Alert but disoriented Head : Normal cephalic, a-traumatic. Nose : Mucous membranes are without erythema. Lungs : Equal chest rise bilaterally, no use of accessory muscles, trachea is midline. CV : Rate and rhythm are normal. Abdomen : Surgical incisions are well-healed, abdomen is soft, nondistended, minimally tender which is appropriate to palpation. On the left groin there is no evidence of hernia recurrence. Extremities : No edema. Upper extremities are normal bilaterally. Back : non-tender to palpation, no CVA tenderness. Urinary Catheter Management: La: Cath Placed During This Visit: yes Reason for Continuing Indwelling Catheter: Acute Urinary Retention or Obstruction Urinary Catheter Date of Insertion: 01/22/23 Urinary Catheter Time of Insertion: 11:02 Data 01/25/23 05:29 01/25/23 05:29 A&P Assessment and plan (1) Femoral hernia of left side with gangrene and obstruction: Good postoperative progress, appropriate wound healing and pain level. Will start patient on liquids today and follow-up in the following days in order to advance diet. ? Full liquid diet today ? Continue physical therapy for ambulation (2) Visual hallucinations: Patient noted to have significant cognitive decline, I have counseled the family regarding the need for reorientation, I have also explained that during the day we want to have the room very bright and all the shades up in order to prevent the patient from having hospital acquired delirium. (3) Chronic cystitis: After extensive discussion with the family, I have been informed that patient has history of chronic cystitis and chronic urinary retention, therefore we have decided to keep urinary catheter in place proper healing of theAt least for a week after surgery in order to allow left femoral hernia tissue repair as a distended bladder will likely cause undue stress in the fresh repair which may precipitate an early recurrence. Patient was initiated on Flomax yesterday at least 5 days of Flomax will be needed Before catheter can be removed. In addition to prevent urinary retention when the patient to be moving around before discontinuing the catheter. Of note patient has been receiving chronic antibiotic as outpatient for recurrent cystitis and obstruction per urology. While in hospital we will continue IV antibiotics and then patient can be discharged on the week of Augmentin to ensure appropriate coverage. Attestations Medical Necessity Statement*: Patient will require at least 48 to 72 hours of hospital stay for postoperative management after small bowel resection and repair of a strangulated femoral hernia. Patient will likely benefit from discharge to nursing facility after initial acute stay. Coding Level of Care Code Acute Code for Chg Fwd Diagnoses Femoral hernia of left side with gangrene and obstruction K41.40 Visual hallucinations R44.1 Chronic cystitis N30.20
--- NOTE | 2023-01-25 16:22 | PC.NURSE ---
nurse heard patient pass gas while bathing patient.
[2023-01-25] MEDS: enoxaparin 40 mg/0.4 mL Syringe SUBCUT (20:40)
[2023-01-25] MEDS: AA-Dex 4.25%-5% w/Lytes 1,000 ML with multivitamin inj 10 ML 42 ML IV (20:40)
[2023-01-26] VITALS (7 sets, daily range): BP systolic 104–141; BP diastolic 65–77; PULSE 62–91; RESP 16–20; TEMP 36.7–37.3; O2SAT 95–98
[2023-01-26] MEDS: ketorolac 30 mg/mL INJ 15 MG IVP (02:17)
[2023-01-26] MEDS: pantoprazole 40 mg SDV IVP (02:17)
[2023-01-26] MEDS: piperacillin-tazobactam 3.375 GM in sodium chloride 0.9% (plus) 50 ML IV ×3 (02:22→20:44)
[2023-01-26 05:09] LABS: Alanine Aminotransferase 9 U/L (0-33); Albumin Level 2.6 g/dL (3.5-5.2); Alkaline Phosphatase 69 U/L (35-105); Anion Gap 8.3 (5-19); Aspartate Amino Transferase 21 U/L (0-32); Blood Urea Nitrogen 15 mg/dL (8-23); Calcium 7.8 mg/dL (8.5-10.5); Carbon Dioxide 26 mmol/L (22-29); Chloride 106 mmol/L (98-107); Globulin 2.4 g/dL (1.3-4.6); Glucose 125 mg/dL (65-115); Osmolality Calculated 286 mOsm/kg (285-295); Potassium 3.3 mmol/L (3.5-5.1); Sodium 137 mmol/L (136-145); Total Bilirubin 0.5 mg/dL (0.15-1.2); Triglycerides 73 mg/dL (0-150)
[2023-01-26 05:16] LABS: Phosphorus 2.9 mg/dL (2.5-4.5)
[2023-01-26] MEDS: dextrose 5%-sod chloride 0.9% 1,000 ML 75 ML IV (05:39)
--- NOTE | 2023-01-26 08:16 | PM.PN ---
Subjective Subjective: 77-year-old female who is postoperative day 3 status post open left femoral hernia repair, diagnostic laparoscopy and laparotomy with small bowel resection for strangulated left femoral hernia. Patient has shown significant improvement over the last 24 hours, she was noted to pass gas, has been tolerating clear liquids. Ambulates with administrative support assistant of physical therapy, has been out of bed also. Only complains of mild lower abdominal cramping, vital signs have remained stable, no evidence of fever chills or any symptoms suggesting infection. Vitals/I&O/Wt Last Vital Signs Temp 98.4 F 01/26/23 07:34 Pulse 68 01/26/23 07:34 Resp 16 01/26/23 07:34 BP 111/67 01/26/23 07:34 Pulse Ox 95 01/26/23 07:34 O2 Del Method Room Air 01/26/23 07:34 O2 Flow Rate 2 01/23/23 05:00 01/25/23 01/26/23 01/26/23 22:59 06:59 14:59 Intake Total 2117.832 / 2217.832 1100 / 3317.832 360 / 360 Output Total 350 / 1350 200 / 1550 Balance 1767.832 / 867.832 900 / 1767.832 360 / 360 Physical Exam Narrative: General : Alert but disoriented Head : Normal cephalic, a-traumatic. Nose : Mucous membranes are without erythema. Lungs : Equal chest rise bilaterally, no use of accessory muscles, trachea is midline. CV : Rate and rhythm are normal. Abdomen : Surgical incisions are well-healed, abdomen is soft, nondistended, minimally tender which is appropriate to palpation. On the left groin there is no evidence of hernia recurrence. Extremities : No edema. Upper extremities are normal bilaterally. Back : non-tender to palpation, no CVA tenderness. Urinary Catheter Management: La: Cath Placed During This Visit: yes Reason for Continuing Indwelling Catheter: Acute Urinary Retention or Obstruction Urinary Catheter Date of Insertion: 01/22/23 Urinary Catheter Time of Insertion: 11:02 Data 01/25/23 05:29 01/26/23 04:38 A&P Assessment and plan (1) Femoral hernia of left side with gangrene and obstruction: Good postoperative progress, appropriate wound healing and pain level. We will advance diet to soft today, the patient is tolerating diet and started having bowel movements she will be cleared from discharge for the general surgery standpoint. We will start p.o. pain medication with Tylenol, will start her on MiraLAX to encourage bowel movement. (2) Visual hallucinations: Patient noted to have significant cognitive decline, I have counseled the family regarding the need for reorientation, I have also explained that during the day we want to have the room very bright and all the shades up in order to prevent the patient from having hospital acquired delirium. Will require placement to nursing facility for postoperative care. (3) Chronic cystitis: After extensive discussion with the family, I have been informed that patient has history of chronic cystitis and chronic urinary retention, therefore we have decided to keep urinary catheter in place proper healing of theAt least for a week after surgery in order to allow left femoral hernia tissue repair as a distended bladder will likely cause undue stress in the fresh repair which may precipitate an early recurrence. Patient was initiated on Flomax yesterday at least 5 days of Flomax will be needed Before catheter can be removed. In addition to prevent urinary retention when the patient to be moving around before discontinuing the catheter. Of note patient has been receiving chronic antibiotic as outpatient for recurrent cystitis and obstruction per urology. While in hospital we will continue IV antibiotics and then patient can be discharged on the week of Augmentin to ensure appropriate coverage. -La catheter can be removed on 01/31 to allow time for tamsulosin to work before this date,. If patient gets discharged to senior living La catheter can be needed discontinued at the senior living. -Please provide the patient with at least 2 weeks of tamsulosin upon discharge -Please start patient on Augmentin for 2 weeks upon discharge -Please provide patient with urology follow-up upon discharge. Attestations Medical Necessity Statement*: Patient will require at least 48 more hours of hospital stay for postsurgical management after small bowel resection and left femoral hernia repair. After this. Patient will likely require placement to senior living. Coding Level of Care Code Acute Code for Chg Fwd Diagnoses Femoral hernia of left side with gangrene and obstruction K41.40 Visual hallucinations R44.1 Chronic cystitis N30.20
[2023-01-26] MEDS: tamsulosin 0.4 mg Capsule PO (09:29)
[2023-01-26] MEDS: polyethylene glycol 3350 Pkt 17 gm PO (09:29)
[2023-01-26] MEDS: acetaminophen 325 mg Tablet 650 MG PO ×3 (09:29→20:44)
--- NOTE | 2023-01-26 10:23 | PM.PN ---
Subjective Subjective: Patient is endorsing passage of flatus Tolerating diet General surgery has cleared her to go to rehab once accepted Daughter is stating that she is not able to take care of her she would prefer her to go to SNF as well [facility] is working on her case La catheter is to stay in for a while Continue tamsulosin We can discontinue PPN and D5 , Potassium replenished Vitals/I&O/Wt Last Vital Signs Temp 98.4 F 01/26/23 07:34 Pulse 68 01/26/23 07:34 Resp 16 01/26/23 07:34 BP 111/67 01/26/23 07:34 Pulse Ox 95 01/26/23 07:34 O2 Del Method Room Air 01/26/23 07:34 O2 Flow Rate 2 01/23/23 05:00 01/25/23 01/26/23 01/26/23 22:59 06:59 14:59 Intake Total 2117.832 / 2217.832 1100 / 3317.832 628.75 / 628.75 Output Total 350 / 1350 200 / 1550 Balance 1767.832 / 867.832 900 / 1767.832 628.75 / 628.75 Physical Exam Narrative: Patient is awake and alert Signs of dehydration improving Abdomen soft Bowel sounds present Dry sterile dressing in place No active drainage Patient is pleasant and cooperative however Short attention span and confused No new focal deficit No signs of edema Currently doing well on room air S1, S2 Urinary Catheter Management: La: Cath Placed During This Visit: yes Reason for Continuing Indwelling Catheter: Acute Urinary Retention or Obstruction Urinary Catheter Date of Insertion: 01/22/23 Urinary Catheter Time of Insertion: 11:02 Data 01/25/23 05:29 01/26/23 04:38 A&P Assessment and plan (1) Dehydration: (2) Femoral hernia of left side with gangrene and obstruction: (3) Strangulated inguinal hernia: (4) Visual hallucinations: (5) Confusion: (6) History of CVA (cerebrovascular accident): (7) Memory changes: (8) Chronic cystitis: (9) Pulmonary hypertension: (10) History of bladder cancer: (11) Paroxysmal atrial fibrillation: Plan Patient will need group home placement PT evaluation reviewed Potassium replenished Discontinue PPN and D5 IV fluid Patient is tolerating p.o. diet Diet has been advanced per general surgery Positive bowel sounds No BM yet Abdominal exam is benign Recurrent cystitis, urinary retention La catheter to stay in continue tamsulosin Can do voiding trial in next 48 hours I will discontinue IV antibiotics by tomorrow if she remains afebrile Current surgery recommendations reviewed Spoke with her daughter today Attestations Medical Necessity Statement*: Awaiting placement Diagnoses Dehydration E86.0 Femoral hernia of left side with gangrene and obstruction K41.40 Strangulated inguinal hernia K40.30 Visual hallucinations R44.1 Confusion R41.0 History of CVA (cerebrovascular accident) Z86.73 Memory changes R41.3 Chronic cystitis N30.20 Pulmonary hypertension I27.20 History of bladder cancer Z85.51 Paroxysmal atrial fibrillation I48.0
[2023-01-26] MEDS: lidocaine 1% 5 ML in potassium chloride premix 100 ML 26.25 ML IV (10:29)
--- NOTE | 2023-01-26 14:49 | PC.SOCIAL ---
IMM Update pg 2 of IMM updated and reviewed w/ patient and her daughter. Copy dated, initialed and placed in chart. Copy provided.
[2023-01-26] MEDS: oxyCODONE 5 mg IR Tab/Cap PO (17:25)
[2023-01-26] MEDS: quetiapine 25 mg Tablet PO (20:44)
[2023-01-26] MEDS: enoxaparin 40 mg/0.4 mL Syringe SUBCUT (20:45)
[2023-01-27] VITALS (7 sets, daily range): BP systolic 84–147; BP diastolic 51–81; PULSE 66–80; RESP 16–19; TEMP 36.4–37; O2SAT 93–97
[2023-01-27] MEDS: piperacillin-tazobactam 3.375 GM in sodium chloride 0.9% (plus) 50 ML IV (05:22)
[2023-01-27] MEDS: acetaminophen 325 mg Tablet 650 MG PO ×2 (09:26→20:49)
[2023-01-27] MEDS: tamsulosin 0.4 mg Capsule PO (09:27)
[2023-01-27] MEDS: polyethylene glycol 3350 Pkt 17 gm PO (09:27)
--- NOTE | 2023-01-27 12:08 | PM.PN ---
Subjective Subjective: Awake and alert GCS 15 Very pleasant and cooperative Daughter at the bedside Agreeable for usp placement Had a bowel movement this morning as well Abdomen soft No fever will discontinue antibiotics Vitals/I&O/Wt Last Vital Signs Temp 97.6 F 01/27/23 11:48 Pulse 74 01/27/23 11:48 Resp 16 01/27/23 11:48 BP 84/52 01/27/23 11:48 Pulse Ox 96 01/27/23 11:48 O2 Del Method Room Air 01/27/23 11:48 O2 Flow Rate 2 01/23/23 05:00 01/26/23 01/27/23 01/27/23 22:59 06:59 14:59 Intake Total 530 / 2088.65 50 / 2138.65 290 / 290 Output Total 1300 / 1300 250 / 1550 Balance -770 / 788.65 -200 / 588.65 290 / 290 Physical Exam Narrative: Awake and alert Signs of dehydration improving Tolerating diet Abdomen soft Nonfocal neuro exam Currently on room air S1, S2 Urinary Catheter Management: La: Cath Placed During This Visit: yes Reason for Continuing Indwelling Catheter: Other Urinary Catheter Date of Insertion: 01/22/23 Urinary Catheter Time of Insertion: 11:02 Data 01/25/23 05:29 01/26/23 04:38 A&P Assessment and plan (1) Dehydration: (2) Femoral hernia of left side with gangrene and obstruction: (3) Strangulated inguinal hernia: (4) Visual hallucinations: (5) Confusion: (6) Paroxysmal atrial fibrillation: (7) Chronic cystitis: Plan Today I will discontinue IV antibiotics she has been afebrile No worsening of leukocytosis Discontinue IV Zosyn Discontinue IV fluids She is able to tolerate diet She is having bowel movement every day Awaiting placement She did not do well with physical therapy La catheter will stay in and she will need outpatient urology Used to follow-up with Dr. Ozuna outpatient Attestations Medical Necessity Statement*: Waiting placement Diagnoses Dehydration E86.0 Femoral hernia of left side with gangrene and obstruction K41.40 Strangulated inguinal hernia K40.30 Visual hallucinations R44.1 Confusion R41.0 Paroxysmal atrial fibrillation I48.0 Chronic cystitis N30.20
--- NOTE | 2023-01-27 13:06 | PM.PN ---
Subjective Subjective: Patient seen and examined. Tolerating regular diet. Vitals/I&O/Wt Last Vital Signs Temp 97.5 F L 01/28/23 11:51 Pulse 65 01/28/23 11:51 Resp 18 01/28/23 11:51 BP 130/79 01/28/23 11:51 Pulse Ox 92 01/28/23 11:51 O2 Del Method Room Air 01/28/23 11:51 O2 Flow Rate 2 01/23/23 05:00 01/27/23 01/28/23 01/28/23 22:59 06:59 14:59 Intake Total 100 / 630 480 / 480 Output Total 1700 / 2500 Balance 100 / -170 -1700 / -1870 480 / 480 Physical Exam Narrative: Abdomen: Soft, Nondistended, appropriately tender to palpation Incisions intact without erythema or exudate Urinary Catheter Management: La: Cath Placed During This Visit: yes Reason for Continuing Indwelling Catheter: Other Urinary Catheter Date of Insertion: 01/22/23 Urinary Catheter Time of Insertion: 11:02 Data 01/25/23 05:29 01/26/23 04:38 A&P Assessment and plan (1) Femoral hernia of left side with gangrene and obstruction: Good postoperative progress, appropriate wound healing and pain level. We will advance diet to soft today, the patient is tolerating diet and started having bowel movements she will be cleared from discharge for the general surgery standpoint. We will start p.o. pain medication with Tylenol, will start her on MiraLAX to encourage bowel movement. Plan Surgically stable for transfer/discharge Regular diet No lifting over 15 pounds for 6 weeks Follow-up in my office 2 weeks after surgery Medical management per hospitalist Attestations Medical Necessity Statement*: Per hospitalist Coding Level of Care Code Acute Code for Chg Fwd Diagnoses Femoral hernia of left side with gangrene and obstruction K41.40
[2023-01-27] MEDS: cyclobenzaprine 10 mg Tablet 5 MG PO (17:09)
[2023-01-27] MEDS: enoxaparin 40 mg/0.4 mL Syringe SUBCUT (20:49)
[2023-01-27] MEDS: quetiapine 25 mg Tablet PO (20:49)
[2023-01-28] VITALS (7 sets, daily range): BP systolic 105–150; BP diastolic 61–95; PULSE 63–78; RESP 16–18; TEMP 36.4–36.8; O2SAT 92–96
[2023-01-28] MEDS: acetaminophen 325 mg Tablet 650 MG PO ×3 (01:27→20:38)
[2023-01-28] MEDS: tamsulosin 0.4 mg Capsule PO (09:37)
--- NOTE | 2023-01-28 10:24 | P.PN_ITS ---
Subjective Subjective: Is pleasant and cooperative this morning Daughter is at the bedside She does get confused time to time considering her dementia She has history of visual hallucination which has not worsened Vitals/I&O/Wt Last Vital Signs Temp 97.7 F 01/28/23 07:05 Pulse 76 01/28/23 07:05 Resp 17 01/28/23 07:05 BP 132/81 01/28/23 07:05 Pulse Ox 96 01/28/23 07:05 O2 Del Method Room Air 01/28/23 07:05 O2 Flow Rate 2 01/23/23 05:00 01/27/23 01/28/23 01/28/23 22:59 06:59 14:59 Intake Total 100 / 630 240 / 240 Output Total 1700 / 2500 Balance 100 / -170 -1700 / -1870 240 / 240 Physical Exam Narrative: Nonfocal neuro exam Signs of dehydration improved S1, S2 Abdomen soft Pleasant and cooperative Daughter at the bedside Currently on room air Urinary Catheter Management: La: Cath Placed During This Visit: yes Reason for Continuing Indwelling Catheter: Other Urinary Catheter Date of Insertion: 01/22/23 Urinary Catheter Time of Insertion: 11:02 Data 01/25/23 05:29 01/26/23 04:38 A&P Assessment and plan (1) Dehydration: (2) Femoral hernia of left side with gangrene and obstruction: (3) Strangulated inguinal hernia: (4) Incarcerated inguinal hernia: (5) Visual hallucinations: (6) Confusion: (7) Chronic cystitis: (8) Memory changes: (9) Paroxysmal atrial fibrillation: Plan Patient is awaiting placement Antibiotics have been changed to p.o. regimen Patient doing well having bowel movement every day No postoperative complication She does have history of dementia with visual hallucination no acute worsening Attestations Medical Necessity Statement*: awaiting placement Diagnoses Dehydration E86.0 Femoral hernia of left side with gangrene and obstruction K41.40 Strangulated inguinal hernia K40.30 Incarcerated inguinal hernia K40.30 Visual hallucinations R44.1 Confusion R41.0 Chronic cystitis N30.20 Memory changes R41.3 Paroxysmal atrial fibrillation I48.0
--- NOTE | 2023-01-28 12:09 | PC.SOCIAL ---
IMM Updated Updated pt & pt's daughter on IMM. No questions voiced. Provided pt copy. Initialed, dated, & timed copy in chart.
--- NOTE | 2023-01-28 16:21 | PC.OT ---
OT TREATMENT ATTEMPTED. PER DAUGHTER ADLS INCLUDING BATHING HAVE ALREADY BEEN PERFORMED TODAY. ATTEMPTED TO HAVE PATIENT PERFORM UE EXERCISES BUT THE PATIENT IS VERY CONFUSED AND UNABLE TO FOLLOW DIRECTIONS AT THIS TIME.
[2023-01-28] MEDS: oxyCODONE 5 mg IR Tab/Cap PO (18:36)
[2023-01-28] MEDS: enoxaparin 40 mg/0.4 mL Syringe SUBCUT (20:37)
[2023-01-28] MEDS: quetiapine 25 mg Tablet PO (20:38)
[2023-01-29] VITALS: BP 123/77; PULSE 68; RESP 18; TEMP 36.8; O2SAT 94
[2023-01-29 04:46] VITALS: BP 130/76; PULSE 67; RESP 18; TEMP 36.8; O2SAT 96
[2023-01-29 07:43] VITALS: BP 120/76; PULSE 71; RESP 18; TEMP 36.8; O2SAT 96
[2023-01-29] MEDS: tamsulosin 0.4 mg Capsule PO (09:43)
[2023-01-29] MEDS: polyethylene glycol 3350 Pkt 17 gm PO (09:43)
[2023-01-29] MEDS: acetaminophen 325 mg Tablet 650 MG PO (09:43)
--- NOTE | 2023-01-29 10:04 | PM.DCS ---
Discharge Providers Date of Admission: 01/23/23 03:01 Date of Discharge: January 28, 2023 Attending Provider at Admission: Dann Navarro MD Attending Provider at Discharge: Rahat Cannon MD Primary Care Provider: Ying Bonilla MD Diagnoses at Discharge Discharge Diagnosis (1) Dehydration: Status: Acute (2) Femoral hernia of left side with gangrene and obstruction: Status: Acute (3) Strangulated inguinal hernia: Status: Acute (4) Visual hallucinations: Status: Acute (5) Confusion: Status: Acute (6) Paroxysmal atrial fibrillation: Status: Acute (7) Chronic cystitis: Status: Acute Reason for Visit Reason for Visit: fall, abd pain, has hernia Hospital Course Hospital Course Destiny Quintana is a 77 year old female with a past medical history of pulmonary hypertension, atrial fibrillation not on anticoagulation as per patient choice, on full dose aspirin, history of dementia, history of bladder cancer, who presents to [facility] for abdominal pain, she was diagnosed with strangulated inguinal hernia, general surgery was consulted, status post intervention 01/23Ope left femoral hernia repair with mesh, diagnostic laparoscopy, laparotomy with small bowel resection and primary anastomosis. Postoperatively patient was retaining urine, dysuria. To keep La catheter in and start tamsulosin, she carries history of chronic cystitis, she she was following up with Dr. Ozuna, during the hospitalization she did not show any signs of UTI, her dehydration improved with use of PPN, IV fluids which were discontinued when she started tolerating diet, she is passing gas, experiencing bowel movement every day, considering poor functional status decision was made to discharge her to a care home/rehab. She does have underlying dementia, patient was altered related to metabolic encephalopathy/acute delirium due to dehydration. She received IV Zosyn perioperatively however she remained afebrile. No significant leukocytosis. Patient does carry diagnosis of visual hallucination and dementia, I do believe she is suffering from Lewy body dementia for which daughter is requesting outpatient neurology consultation. I will also give them urology follow-up at [facility]. Physical Exam Narrative: Awake and alert GCS 15 Abdominal scar showing signs of healing La catheter draining clear urine Pleasant and cooperative S1, S2 Currently on room air Urinary Catheter Management: La: Cath Placed During This Visit: yes Reason for Continuing Indwelling Catheter: Other Urinary Catheter Date of Insertion: 01/22/23 Urinary Catheter Time of Insertion: 11:02 Discharge Data Studies Completed and Pending Completed Studies During Hospitalization Category Date Time Status CT abdomen pelvis w con* [id number] Stat Cat Scan 01/22/23 18:[address] head wo con* [id number] Routine Cat Scan 01/23/23 03:01 Completed XR chest 1V portable [id number] Routine Exams 01/23/23 03:01 Completed XR hip BI 2V wo/w pel [id number] Routine Exams 01/23/23 03:01 Completed XR lumbar spine 2-3V* [id number] Routine Exams 01/23/23 03:01 Completed Pending at discharge Category Date Time Status Pathology: Surgical [PTH] Routine Pth 01/23/23 01:24 Received Radiology Impressions Abdomen/Pelvis CT 01/22/23 18:51 IMPRESSION: 1. There is a left inguinal hernia containing omental fat and a small bowel loop. Findings suspicious for strangulation of the hernia. 2. Incidental/nonacute findings are listed in the report. ADDENDUM: 01/22/232035 THIS REPORT CONTAINS FINDINGS THAT MAY BE CRITICAL TO PATIENT CARE. YOLI Colvin confirmed on 01/22/2023 at 8:34 PM CDT that a copy of the report containing critical findings was received and there were no questions. Laboratory Results WBC 7.79 10^3/uL (3.29-11.43) 01/25/23 05:29 RBC 4.01 10^6/uL (3.85-5.65) 01/25/23 05:29 Hgb 12.10 g/dL (11.27-16.99) 01/25/23 05:29 Hct 37.8 % (36-47) 01/25/23 05:29 MCV 94.3 fl (85-98) 01/25/23 05:29 MCH 30.2 pg (27-33) 01/25/23 05: MCHC 32.0 g/dL (30-55) 01/25/23 05:29 RDW 14.5 % (12.1-15.1) 01/25/23 05:29 Plt Count 122 10^3/cmm (157-399) L 01/25/23 05:29 MPV 12.2 fL (7.4-10.4) H 01/25/23 05:29 Neut % (Auto) 89.0 % 01/25/23 05:29 Lymph % (Auto) 4.9 % 01/25/23 05:29 [place] % (Auto) 4.1 % 01/25/23 05:29 Eos % (Auto) 1.4 % 01/25/23 05:29 Baso % (Auto) 0.1 % 01/25/23 05:29 Neut # (Auto) 6.93 10^3/uL (1.8-7.7) 01/25/23 05:29 Lymph # (Auto) 0.4 10^3/uL (0.8-4.8) L 01/25/23 05:29 [place] # (Auto) 0.3 10^3/uL (0.2-0.9) 01/25/23 05:29 Eos # (Auto) 0.1 10^3/uL (0.0-0.8) 01/25/23 05:29 Baso # (Auto) 0.0 10^3/uL (0.0-0.1) 01/25/23 05:29 Nucleated RBC % (auto) 0 % 01/25/23 05:29 Nucleated RBCs # 0.0 /100WBC 01/25/23 05:29 PT 15.10 SECONDS (12.1-14.9) H 01/23/23 04:20 INR 1.15 (0.8-1.2) 01/23/23 04:20 Specimen Type Arterial 01/23/23 07:07 Sample Site Radial, right 01/23/23 07:07 ABG pH 7.39 (7.35-7.45) 01/23/23 07:07 ABG pCO2 40.4 mmHg (35-45) 01/23/23 07:07 ABG pO2 71.0 mmHg (80.0-100.0) L 01/23/23 07:07 ABG HCO3 24.7 mmol/L (22-26) 01/23/23 07:07 ABG Base Excess -0.2 mmol/L (-2.0-2.0) 01/23/23 07:07 Mike Test Pos 01/23/23 07:07 Hematocrit 33.7 % (37-47) L 01/23/23 07:07 O2 Delivery Device Room air 01/23/23 07:07 FiO2 21.0 % 01/23/23 07:07 Flying Teacher ID Bonnie 01/23/23 07:07 Sodium 137 mmol/L (136-145) 01/26/23 04:38 Potassium 3.3 mmol/L (3.5-5.1) L 01/26/23 04:38 Chloride 106 mmol/L (98-107) 01/26/23 04:38 Carbon Dioxide 26 mmol/L (22-29) 01/26/23 04:38 Anion Gap 8.3 (5-19) 01/26/23 04:38 BUN 15 mg/dL (8-23) 01/26/23 04:38 Creatinine 0.7 mg/dL (0.5-0.9) 01/26/23 04:38 GFR Calculation Not Reportable 01/26/23 04:38 Glucose 125 mg/dL (65-115) H 01/26/23 04:38 Calculated Osmolality 286 mOsm/kg (285-295) 01/26/23 04:38 Calcium 7.8 mg/dL (8.5-10.5) L 01/26/23 04:38 Phosphorus 2.9 mg/dL (2.5-4.5) 01/26/23 04:38 Magnesium 2.0 mg/dL (1.7-2.3) 01/26/23 04:38 Total Bilirubin 0.5 mg/dL (0.15-1.2) 01/26/23 04:38 AST 21 U/L (0-32) 01/26/23 04:38 ALT 9 U/L (0-33) 01/26/23 04:38 Alkaline Phosphatase 69 U/L (35-105) 01/26/23 04:38 Troponin T Baseline 42 ng/L (0-10) H 01/23/23 04:20 Troponin T 120 Minute 41.25 ng/L (0-10) H 01/23/23 06:20 Delta Troponin T -0.75 ABS# (0-10) L 01/23/23 06:20 Troponin T Hi Sens 6Hr 40.73 ng/L (0-10) H 01/23/23 10:15 Troponin T Hi Sens 6Hr Delta -1.27 ng/L (0-12) L 01/23/23 10:15 Total Protein 5.0 g/dL (6.6-8.7) L 01/26/23 04:38 Albumin 2.6 g/dL (3.5-5.2) L 01/26/23 04:38 Globulin 2.4 g/dL (1.3-4.6) 01/26/23 04:38 Triglycerides 73 mg/dL (0-150) 01/26/23 04:38 TSH 3.69 uIU/mL (0.27-4.20) 01/23/23 04:20 Urine Color Yellow (Yellow) 01/22/23 20:36 Urine Appearance Sl hazy (CLEAR) A 01/22/23 20:36 Urine pH 5 (5-7) 01/22/23 20:36 Ur Specific [place] 1.010 (1.005-1.030) 01/22/23 20:36 Urine Protein Neg (Negative) 01/22/23 20:36 Urine Glucose (UA) Norm (Normal) 01/22/23 20:36 Urine Ketones 1+ (Negative) H 01/22/23 20:36 Urine Blood Neg (Negative) 01/22/23 20:36 Urine Nitrate Negative (Negative) 01/22/23 20:36 Urine Bilirubin Neg (Negative) 01/22/23 20:36 Urine Urobilinogen Neg mg/dL (Negative) 01/22/23 20:36 Ur Leukocyte Esterase 1+ (Negative) H 01/22/23 20:36 Urine RBC 0-4 /hpf (0-2) H 01/22/23 20:36 Urine WBC 5-10 /hpf (0-5) H 01/22/23 20:36 Ur Squamous Epith Cells 0-4 /hpf (0-5) H 01/22/23 20:36 Ur Transition Epith Cell 5-10 /hpf 01/22/23 20:36 Amorphous Sediment Not Reportable 01/22/23 20:36 Urine Bacteria Trace /hpf (NONE) 01/22/23 20:36 Urine Mucus 2+ /hpf 01/22/23 20:36 Vitals Last Vital Signs Temp 98.2 F 01/28/23 05:00 Pulse 78 01/28/23 05:00 Resp 18 01/28/23 05:00 BP 139/77 01/28/23 05:00 Pulse Ox 95 01/28/23 05:00 O2 Del Method Room Air 01/27/23 15:44 O2 Flow Rate 2 01/23/23 05:00 Discharge Plan Discharge Patient Disposition: Xfer SNF Condition: Stable Prescriptions: New tamsulosin 0.4 mg Capsule 0.4 mg PO DAILY Qty: 90 0RF acetaminophen 325 mg Tablet 650 mg PO Q6H Qty: 90 0RF quetiapine 25 mg Tablet 25 mg PO BEDTIME Qty: 30 0RF polyethylene glycol 3350 17 gram Powder In Packet 17 g PO DAILY Qty: 10 0RF cefpodoxime 200 mg tablet 200 mg PO BID Qty: 10 0RF Rx Instructions: must administer with a meal/food Continued metoprolol tartrate 25 mg tablet 25 mg PO BID Qty: 180 3RF aspirin 325 mg Tablet 325 mg PO QAM magnesium oxide 400 mg magnesium Tablet 400 mg PO QAM PRN (Reason: Muscle Spasm) Prevagen 1 cap PO QAM furosemide 20 mg tablet 20 mg PO DAILY PRN (Reason: Edema) Discharge Orders: Discharge Order (Routine); Ordered 01/29/23 Ordered By: Rahat Cannon Referrals: [facility] [Outside] Ying Bonilla MD [Primary Care Provider] - Wil Ham MD [Physician] - 3 weeks Kevin Ugalde MD [Referring] - 4-7 days Discharge Diet: As Directed Patient Instructions: Opioid Safety Activity Restrictions/Additional Instructions: Dysphagia level 6 diet, soft bite sized with thin liquid consistency Please follow-up with urology at [facility] you may follow-up with neurology Dr. Ham for Lewy body dementia Discharge Attestations Time Spent in Discharge Care*: greater than 30 min Quality Metrics Clinical Quality Measures [ No reported AMI, CVA or VTE this stay] Coding Level of Care Code Acute Code for Chg Fwd Diagnoses Dehydration E86.0 Femoral hernia of left side with gangrene and obstruction K41.40 Strangulated inguinal hernia K40.30 Visual hallucinations R44.1 Confusion R41.0 Paroxysmal atrial fibrillation I48.0 Chronic cystitis N30.20
[2023-01-29 11:05] LABS: SARS Covid-2 Antigen negative (Negative)
[2023-01-29 11:25] VITALS: BP 96/65; PULSE 69; RESP 18; TEMP 36.7; O2SAT 96
[2023-01-29 11:27] VITALS: RESP 16; O2SAT 96
[2023-01-29] MEDS: oxyCODONE 5 mg IR Tab/Cap PO (11:27)
--- NOTE | 2023-01-29 11:48 | PC.OT ---
OT TREATMENT HELD DUE TO SCHEDULED PATIENT D/C TODAY.
--- NOTE | 2023-01-29 13:14 | PC.NURSE ---
This nurse gave report to Sindi at [facility] via phone at 1314. Transport to arrive at approx. 1400 to shrimp picker pt and transport to facility via wheelchair.
== END 2023-01-29 14:09 | disposition skilled nursing facility (03) | DRG 329 ==
LOC: ER 18:46 → MEDSURG 21:26
PROVIDERS: Physician Assistant; Surgery; Admitting Provider Family Medicine; Emergency Provider Emergency Medicine; PCP Family Medicine; Visit Provider Internal Medicine
PROC: (CPT 49320; 2023-01-22 22:00)
DX: K40.40 Unilateral inguinal hernia, with gangrene, not specified as recurrent (principal); G93.41 Metabolic encephalopathy; F02.82 Dementia in other diseases classified elsewhere, unspecified severity, with psychotic disturbance; K91.89 Other postprocedural complications and disorders of digestive system; K56.7 Ileus, unspecified; Z11.52 Encounter for screening for COVID-19; I27.20 Pulmonary hypertension, unspecified; I48.0 Paroxysmal atrial fibrillation; G31.83 Neurocognitive disorder with Lewy bodies; Z85.51 Personal history of malignant neoplasm of bladder; R33.9 Retention of urine, unspecified; R30.0 Dysuria; N30.20 Other chronic cystitis without hematuria; E86.0 Dehydration; W18.30XA Fall on same level, unspecified, initial encounter; Z87.891 Personal history of nicotine dependence; Z86.73 Personal history of transient ischemic attack (TIA), and cerebral infarction without residual deficits; M25.552 Pain in left hip; M25.551 Pain in right hip; M47.816 Spondylosis without myelopathy or radiculopathy, lumbar region; M51.37 Other intervertebral disc degeneration, lumbosacral region
CPT/HCPCS: 36415; 36600; 51702; 70450; 71045; 72100; 73521; 74177; 80048; 80053; 81001; 82803; 83735; 84100; 84443; 84478; 84484; 85014; 85018; 85025; 85610; 87426; 88307; 92523; 93005; 94664; 96365; 96372; 96375; 97110; 97116; 97162; 97165; 97530; 97535; 99285; C9113; J0131; J0330; J1100; J1170; J1630; J1650; J1885; J2060; J2270; J2310; J2405; J2543; J2704; J2710; J3010; J3480; J3490; J7030; J7042; P9045; Q9967

== ENCOUNTER 2023-02-03 13:51 | Emergency (ER) | payer MEDICARE, SELFPAY ==
[2023-02-03 14:04] VITALS: BP 106/65; PULSE 65; RESP 17; TEMP 37; O2SAT 100; BMI 22.4
--- NOTE | 2023-02-03 14:06 | ECG_ITS ---
[facility] Test Date: 2023-02-03 Pat Name: Destiny Quintana Department: Room: Gender: Female Vehicle Trimmer: : [id number] Requested By: Abraham Ernst Order Number: [id number] Lizbet MD: Sonam Williamson M.D. Measurements Intervals [place] Rate: 62 P: 96 [place]: 159 QRS: -49 QRSD: 75 T: 25 QT: 399 QTc: 408 Interpretive Statements SINUS RHYTHM WITH SINUS ARRHYTHMIA LOW QRS VOLTAGE IN PRECORDIAL LEADS [QRS DEFLECTION < 1.0 mV IN CHEST LEADS] POSSIBLE RIGHT VENTRICULAR CONDUCTION DELAY [RSR (QR) IN V1/V2] LEFT ANTERIOR FASCICULAR BLOCK [QRS AXIS <= -45, QR IN I, RS IN II] MODERATE ST DEPRESSION [0.05+ mV ST DEPRESSION] Compared to ECG 01/23/2023 04:06:48 Left anterior fascicular block now present ST (T wave) deviation now present Sinus tachycardia no longer present Left-axis deviation no longer present Myocardial infarct finding no longer present Electronically Signed On 02-03-2023 15:23:39 CDT by Sonam Williamson M.D. [email or web address]
--- NOTE | 2023-02-03 14:11 | W.ED.WEAKNES ---
HPI - Weakness General: Chief complaint: Weakness Stated complaint: kitty sent for poss. dehydration Time Seen by Provider: 02/03/23 14:05 Source: patient Mode of arrival: ambulatory History of Present Illness: 77-year-old female who presents to the emergency room with complaints of generalized weakness. Patient is a resident of a custodial she recently had. She was at her doctor's office for follow after femoral hernia repair up today with lightheaded and dizzy with a difficult time drawing blood she was referred here. She not been having nausea vomiting or diarrhea. She otherwise seems to have recovered from surgery well. She does have some history of constipation and states she had normal bowel movements this morning. Has not had any fever sweats or chills. She has some cognitive deficits her daughters at the bedside and provides most of the health information. MD Complaint: generalized weakness Duration: intermittent Location: generalized Relieving factors: none Exacerbating factors: none Associated symptoms: Reports confusion; Denies chest pain, chills, melena, decreased appetite, diaphoresis, dysuria, easy bruising, fever(s), headache(s), myalgias, nausea, rash, short of breath, syncope or vomiting Review of Systems Const: Denies: fever(s), chills or diaphoresis Card: Denies: chest pain or syncope Resp: Denies: dyspnea GI: Denies: abdominal pain, nausea, vomiting or melena : Denies: dysuria Musc: Denies: neck pain or back pain Skin/Breast: Denies: rash Neuro: Reports: confusion; Denies: headache(s) Dwight/Lymph: Denies: easy bruising PFSH ED PFSH: Medical History Chest pain Chronic cystitis Confusion Dehydration Femoral hernia of left side with gangrene and obstruction History of bladder cancer History of CVA (cerebrovascular accident) History of hematuria Incarcerated inguinal hernia Incomplete bladder emptying Lung nodule Memory changes Ovarian cystic mass Palpitations Paroxysmal atrial fibrillation Peripheral arterial disease Pulmonary hypertension Strangulated inguinal hernia Visual hallucinations Surgical History History of cataract removal with insertion of prosthetic lens History of ear surgery History of lateral meniscus repair of right knee History of right salpingo-oophorectomy Status post surgical removal and fulguration of bladder neoplasm Family History Father Colon cancer Sister Multiple myeloma Denies family history of Ovarian cancer Diabetes Dementia Heart disease Hypercholesteremia Breast cancer Hypertension Uterine cancer Thyroid disease Stroke Social History Smoking and tobacco/nicotine status: former use of tobacco/nicotine Quit status (tobacco/nicotine): has quit using Year quit tobacco: 2020 Alcohol intake: never Household members: none Number of children: 1 Number of grandchildren: 1 Current occupational status: retired 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/Holiness: Gnosticist Special joyce needs: Yes Details: call spinning and winding supervisor for final right Agree to transfusion: Yes Physical Exam Const: GENERAL APPEARANCE: cooperative and comfortable ORIENTATION/CONSCIOUSNESS: Yes awake HENMT: COMMON NORMALS: normocephalic, atraumatic and hearing grossly normal bilaterally HEAD & SCALP: normocephalic and atraumatic Resp: COMMON NORMALS: normal respiratory effort, No retractions, No use of accessory muscles and clear to auscultation bilaterally AUSCULTATION: clear to auscultation bilaterally Cardio: COMMON NORMALS: regular rate, regular rhythm and No murmurs present (Cardio) RATE: regular rate RHYTHM: regular rhythm GI: COMMON NORMALS: Soft to palpation and No hepatosplenomegaly present AUSCULTATION: Yes normoactive bowel sounds PALPATION: Yes Soft to palpation, No Tenderness to palpation present (GI), No Guarding due to palpation present (GI) and Yes No hepatosplenomegaly present OTHER: Examination and abdomen adalid at the midline in the left groin crease no signs of infection no drainage no dehiscence Extremity: COMMON NORMALS: normal to inspection, capillary refill normal, no clubbing, cyanosis or edema, no calf tenderness and no pedal edema Skin: COMMON NORMALS: no rashes or lesions noted GENERAL SKIN EXAM: no rashes or lesions noted Course Vital Signs: Vital signs: Vital Signs Temperature 98.6 F 02/03/23 14:04 Pulse Rate 68 02/03/23 15:33 Respiratory Rate 18 02/03/23 15:33 Blood Pressure 129/67 02/03/23 17:43 Pulse Oximetry 98 02/03/23 15:33 Oxygen Delivery Me thod Room Air 02/03/23 15:33 MDM - Weakness Medical Decision Making Mild cystitis laboratory tests otherwise relatively unremarkable she does have a developing anemia and is dropped from a little over 12-9.3 since her surgery. No reported hematochezia or melena she is not on any anticoagulants at this time. Should recheck hemoglobin in 2 to 3 days start oral antibiotics given a dose of Rocephin here discharged to custodial on oral antibiotics to begin tomorrow. Repeat exam prior to discharge benign Medical Records I reviewed the patient's medical records. Lab Data I reviewed the patient's lab results. 02/03/23 15:10 02/03/23 14:22 Laboratory Results WBC 6.83 10^3/uL (3.29-11.43) 02/03/23 15:10 Corrected WBC Cancelled 02/03/23 14: RBC 3.11 10^6/uL (3.85-5.65) L 02/03/23 15:10 Hgb 9.30 g/dL (11.27-16.99) L 02/03/23 15:10 Hct 30.3 % (36-47) L 02/03/23 15:10 MCV 97.4 fl (85-98) 02/03/23 15:10 MCH 29.9 pg (27-33) 02/03/23 15:10 MCHC 30.7 g/dL (30-55) 02/03/23 15:10 RDW 15.3 % (12.1-15.1) H 02/03/23 15:10 Plt Count 297 10^3/cmm (157-399) 02/03/23 15:10 MPV 10.8 fL (7.4-10.4) H 02/03/23 15:10 Gran % Cancelled 02/03/23 14:22 Neut % (Auto) 82.4 % 02/03/23 15:10 Lymph % (Auto) 10.1 % 02/03/23 15:10 [place] % (Auto) 4.7 % 02/03/23 15:10 Eos % (Auto) 1.8 % 02/03/23 15:10 Baso % (Auto) 0.3 % 02/03/23 15:10 Neut # (Auto) 5.63 10^3/uL (1.8-7.7) 02/03/23 15:10 Lymph # (Auto) 0.7 10^3/uL (0.8-4.8) L 02/03/23 15:10 [place] # (Auto) 0.3 10^3/uL (0.2-0.9) 02/03/23 15:10 Eos # (Auto) 0.1 10^3/uL (0.0-0.8) 02/03/23 15:10 Baso # (Auto) 0.0 10^3/uL (0.0-0.1) 02/03/23 15:10 Absolute Gran (auto) Cancelled 02/03/23 14:22 Nucleated RBC % (auto) 0 % 02/03/23 15:10 Nucleated RBCs # 0.0 /100WBC 02/03/23 15:10 Sodium 141 mmol/L (136-145) 02/03/23 14:22 Potassium 3.8 mmol/L (3.5-5.1) 02/03/23 14:22 Chloride 104 mmol/L (98-107) 02/03/23 14:22 Carbon Dioxide 27 mmol/L (22-29) 02/03/23 14:22 Anion Gap 13.8 (5-19) 02/03/23 14:22 BUN 13 mg/dL (8-23) 02/03/23 14:22 Creatinine 0.8 mg/dL (0.5-0.9) 02/03/23 14:22 GFR Calculation Not Reportable 02/03/23 14:22 Glucose 111 mg/dL (65-115) 02/03/23 14:22 Calculated Osmolality 293 mOsm/kg (285-295) 02/03/23 14:22 Calcium 9.3 mg/dL (8.5-10.5) 02/03/23 14:22 Total Bilirubin 0.2 mg/dL (0.15-1.2) 02/03/23 14:22 AST 19 U/L (0-32) 02/03/23 14:22 ALT 17 U/L (0-33) 02/03/23 14:22 Alkaline Phosphatase 69 U/L (35-105) 02/03/23 14:22 Total Protein 6.5 g/dL (6.6-8.7) L 02/03/23 14:22 Albumin 3.4 g/dL (3.5-5.2) L 02/03/23 14:22 Globulin 3.1 g/dL (1.3-4.6) 02/03/23 14:22 Lipase 35 U/L (13-60) 02/03/23 14:22 Urine Color Yellow (Yellow) 02/03/23 14:40 Urine Appearance Hazy (CLEAR) A 02/03/23 14:40 Urine pH 6 (5-7) 02/03/23 14:40 Ur Specific [place] 1.015 (1.005-1.030) 02/03/23 14:40 Urine Protein Neg (Negative) 02/03/23 14:40 Urine Glucose (UA) Norm (Normal) 02/03/23 14:40 Urine Ketones Negative (Negative) 02/03/23 14:40 Urine Blood 2+ (Negative) H 02/03/23 14:40 Urine Nitrate Negative (Negative) 02/03/23 14:40 Urine Bilirubin Neg (Negative) 02/03/23 14:40 Urine Urobilinogen Norm mg/dL (Negative) 02/03/23 14:40 Ur Leukocyte Esterase 2+ (Negative) H 02/03/23 14:40 Urine RBC 5-10 /hpf (0-2) H 02/03/23 14:40 Urine WBC 40-55 /hpf (0-5) H 02/03/23 14:40 Ur Squamous Epith Cells 5-10 /hpf (0-5) H 02/03/23 14:40 Amorphous Sediment Not Reportable 02/03/23 14:40 Urine Bacteria Trace /hpf (NONE) 02/03/23 14:40 Hyaline Casts 5-10 /lpf H 02/03/23 14:40 Urine Mucus Trace /hpf 02/03/23 14:40 Urine Yeast 1+ /hpf H 02/03/23 14:40 No radiology studies performed this visit Discharge Plan Discharge Patient Disposition: Home Clinical Impression: Cystitis, Anemia Condition: Stable Prescriptions: New Cipro 500 mg tablet 500 mg PO BID Qty: 14 0RF No Action metoprolol tartrate 25 mg tablet 25 mg PO BID Qty: 180 3RF aspirin 325 mg Tablet 325 mg PO QAM magnesium oxide 400 mg magnesium Tablet 400 mg PO QAM PRN (Reason: Muscle Spasm) Prevagen 1 cap PO QAM furosemide 20 mg tablet 20 mg PO DAILY PRN (Reason: Edema) acetaminophen 325 mg Tablet 650 mg PO Q6H Qty: 90 0RF polyethylene glycol 3350 17 gram Powder In Packet 17 g PO DAILY Qty: 10 0RF tamsulosin 0.4 mg Capsule 0.4 mg PO DAILY Qty: 90 0RF Discharge Orders: Discharge ED (Routine); Ordered 02/03/23 Ordered By: Abraham North Referrals: Ying Bonilla MD [Primary Care Provider] - Discharge Diet: Usual diet Discharge Activity: Increase activity as tolerated Patient Instructions: Opioid Safety, Pain Management Activity Restrictions/Additional Instructions: Hemoglobin should be rechecked again in 1 to 2 days start oral antibiotics tomorrow Coding Level of Care Code ED Yard Rigger for Renea Chakraborty
[2023-02-03 14:43] VITALS: BP 110/46; PULSE 83; RESP 16; O2SAT 98
[2023-02-03 14:45] LABS: Alanine Aminotransferase 17 U/L (0-33); Albumin Level 3.4 g/dL (3.5-5.2); Alkaline Phosphatase 69 U/L (35-105); Aspartate Amino Transferase 19 U/L (0-32); Blood Urea Nitrogen 13 mg/dL (8-23); Calcium 9.3 mg/dL (8.5-10.5); Carbon Dioxide 27 mmol/L (22-29); Chloride 104 mmol/L (98-107); Globulin 3.1 g/dL (1.3-4.6); Glucose 111 mg/dL (65-115); Lipase 35 U/L (13-60); Osmolality Calculated 293 mOsm/kg (285-295); Sodium 141 mmol/L (136-145); Total Bilirubin 0.2 mg/dL (0.15-1.2); Total Protein 6.5 g/dL (6.6-8.7)
[2023-02-03 14:46] VITALS: BP 106/65; BP 110/46; BP 96/61
[2023-02-03 14:49] LABS: Anion Gap 13.8 (5-19); Potassium 3.8 mmol/L (3.5-5.1)
[2023-02-03 15:13] LABS: Add Urine Microscopic? YES; Bilirubin Urine Neg (Negative); Blood Urine 2+ (Negative); Glucose Urine UA Norm (Normal); Ketones Urine Negative (Negative); Leukocyte Esterase Urine 2+ (Negative); Nitrate Urine Negative (Negative); Protein Urine Neg (Negative); Specific Gravity, Urine 1.015 (1.005-1.030); Urine Appearance Hazy (CLEAR); Urine Color Yellow (Yellow); Urobilinogen Urine Norm (Negative); pH Urine 6 (5-7)
[2023-02-03 15:17] LABS: Basophils % 0.3 %; Eosinophils # 0.1 10^3/uL (0.0-0.8); Eosinophils % 1.8 %; Hematocrit 30.3 % (36-47); Lymphocytes # 0.7 10^3/uL (0.8-4.8); Lymphocytes % 10.1 %; Mean Corpuscular HGB Conc 30.7 g/dL (30-55); Mean Corpuscular Hemoglobin 29.9 pg (27-33); Mean Corpuscular Volume 97.4 fl (85-98); Mean Platelet Volume 10.8 fL (7.4-10.4); Monocytes # 0.3 10^3/uL (0.2-0.9); Monocytes % 4.7 %; Neutrophils # 5.63 10^3/uL (1.8-7.7); Neutrophils % 82.4 %; Nucleated Red Blood Cells % 0 %; Platelet Count 297 10^3/cmm (157-399); Red Blood Count 3.11 10^6/uL (3.85-5.65); Red Cell Distribution Width 15.3 % (12.1-15.1); White Blood Count 6.83 10^3/uL (3.29-11.43)
[2023-02-03 15:18] LABS: Bacteria Urine TRACE /hpf; Mucus Urine TRACE /hpf; WBC Urine 40-55 /hpf (0-5)
[2023-02-03 15:19] LABS: Add Urine Culture? Yes
[2023-02-03 15:33] VITALS: BP 102/62; PULSE 68; RESP 18; O2SAT 98
[2023-02-03] MEDS: sodium chloride 0.9% 500 ML 999 ML IV (15:33)
--- NOTE | 2023-02-03 16:18 | PC.NURSE ---
discharge delayed d/t abx order at time of d/c.
[2023-02-03] MEDS: cefTRIAXone 1,000 MG in sodium chloride 0.9% (plus) 50 ML 100 MG IV (16:26)
[2023-02-03 17:43] VITALS: BP 129/67
== END 2023-02-03 17:45 | disposition home or self-care (01) ==
PROVIDERS: Emergency Provider Family Medicine; PCP Family Medicine
DX: D64.9 Anemia, unspecified (principal); N30.90 Cystitis, unspecified without hematuria; Z79.82 Long term (current) use of aspirin; Z87.891 Personal history of nicotine dependence; Z87.440 Personal history of urinary (tract) infections; Z85.51 Personal history of malignant neoplasm of bladder; Z86.73 Personal history of transient ischemic attack (TIA), and cerebral infarction without residual deficits
CPT/HCPCS: 36415; 80053; 81001; 83690; 85025; 87086; 93005; 96365; 99284; J0696; J7040

== ENCOUNTER → 2023-02-04 14:06 | Outpatient (BNVA) | payer MEDICARE, SELFPAY | PROVIDERS: PCP Family Medicine; Visit Provider Surgery | DX: Z90.49 Acquired absence of other specified parts of digestive tract (principal); Z98.890 Other specified postprocedural states; Z87.19 Personal history of other diseases of the digestive system | CPT/HCPCS: 99024 ==

== ENCOUNTER → 2023-02-10 14:59 | Outpatient (BNVA) | payer MEDICARE, SELFPAY | PROVIDERS: PCP Family Medicine; Visit Provider Surgery | DX: Z98.890 Other specified postprocedural states (principal); Z87.19 Personal history of other diseases of the digestive system; Z90.49 Acquired absence of other specified parts of digestive tract | CPT/HCPCS: 99024 ==

== ENCOUNTER → 2023-02-18 14:27 | Outpatient (BNVA) | payer MEDICARE, SELFPAY | PROVIDERS: PCP Family Medicine; Visit Provider Psychiatry & Neurology Neurology | DX: F03.92 Unspecified dementia, unspecified severity, with psychotic disturbance (principal); R55 Syncope and collapse; R42 Dizziness and giddiness; R25.8 Other abnormal involuntary movements; R26.9 Unspecified abnormalities of gait and mobility; R29.818 Other symptoms and signs involving the nervous system | CPT/HCPCS: 0346U; 36415; 82542; 82607; 82746; 83735; 83921; 84155; 84165; 86334; 86592; 86780; 99203 ==

== ENCOUNTER → 2023-02-26 09:45 | Outpatient (BNVA) | payer MEDICARE, SELFPAY | PROVIDERS: PCP Family Medicine; Visit Provider Nurse Practitioner Family | DX: I51.89 Other ill-defined heart diseases (principal); Z86.73 Personal history of transient ischemic attack (TIA), and cerebral infarction without residual deficits | CPT/HCPCS: 36415; 80048; 83880; 99214 ==

== ENCOUNTER 2023-03-06 10:14 | Outpatient (CLI) | payer MEDICARE, SELFPAY ==
--- NOTE | 2023-03-06 10:15 | USCV_ITS ---
Destiny Quintana Age: 77 Gender: F : 1945 Exam Date: 03/06/2023 10:50 Ordering Phys: Wil Ham MD Technologist: Pablo Wilkins Exam Location: [facility] Indication: syncope and collapse Risk Factors: Previous Vascular Surgery: Right Brachial BP: / Left Brachial BP: / Right Left Velocity (cm/s) Spectral Plaque Velocity (cm/s) Spectral Plaque Syst/Diast Broadening Syst/Diast Broadening 65.10/ 19.60 Prox CCA 75.90 / 20.40 68.60/ 25.20 Mid CCA 61.10 / 16.00 69.50/ 17.60 Distal CCA 54.90 / 18.50 57.10/ 13.40 Prox ICA 58.60 / 19.10 58.70/ 23.00 Mid ICA 59.20 / 19.10 83.10/ 31.80 Distal ICA 31.50 / 9.90 60.50 ECA 57.40 0.86 ICA/CCA 0.97 Antegrade Vertebral Antegrade 53.60/ 17.10 cm/s 59.20/ 14.80 cm/s Tri Subclavian Tri 83.10 59.20 CONCLUSIONS Right ICA stenosis <50%. Mild atheromatous plaque right carotid bulb/ICA. Left ICA stenosis <50%. Mild atheromatous plaque left carotid bulb/ICA. Intimal thickening in the common carotid arteries and internal carotid arteries bilaterally. Normal antegrade Doppler flow noted in the right vertebral artery. Normal antegrade Doppler flow noted in the left vertebral artery. Addison Pugh MD (Electronically Signed) Final Date: 06 March 2023 11:15 S
== END 2023-03-06 10:15 | disposition home or self-care (01) ==
LOC: RAD 10:15
PROVIDERS: PCP Family Medicine; Visit Provider Psychiatry & Neurology Neurology
DX: R55 Syncope and collapse (principal); F03.90 Unspecified dementia, unspecified severity, without behavioral disturbance, psychotic disturbance, mood disturbance, and anxiety; R42 Dizziness and giddiness; I65.23 Occlusion and stenosis of bilateral carotid arteries
CPT/HCPCS: 93880

== ENCOUNTER 2023-03-19 12:05 | Inpatient (IN) | payer MEDICARE, SELFPAY ==
[2023-03-19] VITALS (48 sets, daily range): BP systolic 86–118; BP diastolic 57–85; PULSE 90–135; RESP 8–28; TEMP 37.4–38.1; O2SAT 74–100; BMI 25.7
--- NOTE | 2023-03-19 12:08 | XR_ITS ---
WS: [id number] Portable AP upright chest, 03/19/2023 Clinical Data: dyspnea/cough Comparison: Portable chest, 01/23/2023 Findings: There is a patchy opacity in the left lung which may represent acute pneumonia or unusual p ulmonary edema. No nodules or masses are seen. The heart is slightly enlarged. No pneumothorax is see n. The aortic arch and descending thoracic aorta show calcification and tortuosity. Impression: 1. Left lung patchy opacity. 2. Cardiomegaly and atherosclerosis.
--- NOTE | 2023-03-19 12:12 | W.ED.GENADLT ---
HPI - General Adult General: Chief complaint: ER Hold Stated complaint: weakness and edema Time Seen by Provider: 03/19/23 12:07 Source: patient Mode of arrival: EMS History of Present Illness: 77-year-old female presents emergency room via EMS from the senior care she is mildly hypoxic and tachycardic and hypotensive. She has a history of heart failure atrial fibrillation she is not currently on any anticoagulation. Evidently she declined her Lasix at the senior care. She is on metoprolol 25 twice daily which she reportedly has taken. She denies chest pain. She does states she feels weak and is increasing edema. Patient is unaware of her rapid heart rate at this time. Onset (ago): unknown Relieving factors: none Exacerbating factors: none Associated symptoms: Reports malaise and palpitations; Deny chest pain, confusion, cough, diaphoresis, decreased appetite, dyspnea, fevers/chills, headache(s), nausea, rash, seizures, short of breath, syncope, vomiting or weakness Review of Systems Const: Reports: fatigue and malaise; Denies: fever(s), chills or diaphoresis Card: Reports: palpitations, irregular heart rhythm, edema and swelling of feet/ankles; Denies: chest pain or syncope Resp: Denies: dyspnea GI: Denies: abdominal pain, nausea or vomiting : Denies: dysuria, urinary frequency or urinary urgency Musc: Denies: neck pain or back pain Skin/Breast: Denies: rash Neuro: Denies: headache(s) or confusion PFS ED PFSH: Medical History (Updated 03/19/23 @ 15:33 by Abraham North DO) Paroxysmal atrial fibrillation Dehydration Femoral hernia of left side with gangrene and obstruction Strangulated inguinal hernia Incarcerated inguinal hernia Visual hallucinations Confusion History of CVA (cerebrovascular accident) Memory changes Peripheral arterial disease Lung nodule Pulmonary hypertension Chest pain Ovarian cystic mass Incomplete bladder emptying Palpitations History of hematuria History of bladder cancer Chronic cystitis Surgical History History of resection of small bowel Hx of hernia repair Dr. Reyes 01/23/23 open left femoral hernia repair with mesh, diagnostiv laparascopy, laparotomy with small bowel resection and primary anastomosis History of ear surgery History of lateral meniscus repair of right knee History of cataract removal with insertion of prosthetic lens History of right salpingo-oophorectomy Status post surgical removal and fulguration of bladder neoplasm Family History Father Colon cancer Sister Multiple myeloma Denies family history of Ovarian cancer Diabetes Dementia Heart disease Hypercholesteremia Breast cancer Hypertension Uterine cancer Thyroid disease Stroke Social History Smoking and tobacco/nicotine status: former use of tobacco/nicotine Quit status (tobacco/nicotine): has quit using Year quit tobacco: 2020 Alcohol intake: never Household members: none Number of children: 1 Number of grandchildren: 1 Current occupational status: retired 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 Joyce/Pentecostal: [employer] Special joyce needs: Yes Details: call radiographer angiogram for final right Agree to transfusion: Yes Physical Exam Const: GENERAL APPEARANCE: cooperative and comfortable ORIENTATION/CONSCIOUSNESS: Yes awake, Yes oriented to person, Yes oriented to place and Yes oriented to time HENMT: COMMON NORMALS: normocephalic, atraumatic and hearing grossly normal bilaterally HEAD & SCALP: normocephalic and atraumatic Resp: COMMON NORMALS: normal respiratory effort, No retractions and No use of accessory muscles AUSCULTATION: crackles Cardio: COMMON NORMALS: No murmurs present (Cardio) RATE: tachycardic RHYTHM: abnormal rhythm irregularly irregular GI: COMMON NORMALS: Soft to palpation and No hepatosplenomegaly present AUSCULTATION: Yes normoactive bowel sounds PALPATION: Yes Soft to palpation, No Tenderness to palpation present (GI), No Guarding due to palpation present (GI) and Yes No hepatosplenomegaly present Extremity: COMMON NORMALS: normal to inspection, capillary refill normal and no calf tenderness GENERAL: Yes edema Neuro: SENSORIUM/ORIENTATION: Yes oriented to person, Yes oriented to place and Yes oriented to time Skin: COMMON NORMALS: no rashes or lesions noted GENERAL SKIN EXAM: no rashes or lesions noted Course Vital Signs: Vital signs: Vital Signs Temperature 99.4 F 03/19/23 12:08 Pulse Rate 115 H 03/19/23 13:46 Respiratory Rate 18 03/19/23 13:46 Blood Pressure 113/85 03/19/23 13:46 Pulse Oximetry 94 03/19/23 13:46 Oxygen Delivery Me thod Nasal Cannula 03/19/23 13:46 Oxygen Flow Rate 2 03/19/23 13:46 MDM - General Adult Medical Decision Making A-fib with RVR and decompensated congestive heart failure. Chest x-ray by my read appears to be more heart failure was mentioned in the radiology review of possible infiltrate we did get blood cultures and started on antibiotics. Lactate is normal do not believe the patient is septic then believe there hypotension is due to atrial fibrillation and blood pressure did improve with improved rate control. We did maxed out on Cardizem, by this time add discussed patient with hospitalist orders been written and he is written orders to switch to amiodarone. Patient be admitted to [facility]. Medical Records I reviewed the patient's medical records. Lab Data I reviewed the patient's lab results. 03/19/23 12:03/19/23 12:27 Laboratory Results WBC 7.93 10^3/uL (3.29-11.43) 03/19/23 12: RBC 3.50 10^6/uL (3.85-5.65) L 03/19/23 12:27 Hgb 10.30 g/dL (11.27-16.99) L 03/19/23 12: Hct 33.1 % (36-47) L 03/19/23 12:27 MCV 94.6 fl (85-98) 03/19/23 12:27 MCH 29.4 pg (27-33) 03/19/23 12:27 MCHC 31.1 g/dL (30-55) 03/19/23 12:27 RDW 15.6 % (12.1-15.1) H 03/19/23 12:27 Plt Count 213 10^3/cmm (157-399) 03/19/23 12: MPV 11.8 fL (7.4-10.4) H 03/19/23 12: Neut % (Auto) 81.6 % 03/19/23 12:27 Lymph % (Auto) 8.2 % 03/19/23 12: [place] % (Auto) 8.7 % 03/19/23 12: Eos % (Auto) 0.9 % 03/19/23 12: Baso % (Auto) 0.3 % 03/19/23 12:27 Neut # (Auto) 6.48 10^3/uL (1.8-7.7) 03/19/23 12:27 Lymph # (Auto) 0.7 10^3/uL (0.8-4.8) L 03/19/23 12:27 [place] # (Auto) 0.7 10^3/uL (0.2-0.9) 03/19/23 12:27 Eos # (Auto) 0.1 10^3/uL (0.0-0.8) 03/19/23 12:27 Baso # (Auto) 0.0 10^3/uL (0.0-0.1) 03/19/23 12:27 Nucleated RBC % (auto) 0 % 03/19/23 12: Nucleated RBCs # 0.0 /100WBC 03/19/23 12:27 Sodium 141 mmol/L (136-145) 03/19/23 12:27 Potassium 4.3 mmol/L (3.5-5.1) 03/19/23 12:27 Chloride 106 mmol/L (98-107) 03/19/23 12:27 Carbon Dioxide 26 mmol/L (22-29) 03/19/23 12:27 Anion Gap 13.3 (5-19) 03/19/23 12:27 BUN 25 mg/dL (8-23) H 03/19/23 12:27 Creatinine 0.7 mg/dL (0.5-0.9) 03/19/23 12:27 GFR Calculation Not Reportable 03/19/23 12:27 Glucose 101 mg/dL (65-115) 03/19/23 12:27 Calculated Osmolality 297 mOsm/kg (285-295) H 03/19/23 12:27 Lactic Acid 1.1 mmol/L (0.5-2.2) 03/19/23 12:38 Calcium 8.9 mg/dL (8.5-10.5) 03/19/23 12:27 Magnesium 2.4 mg/dL (1.7-2.3) H 03/19/23 12:27 Total Bilirubin 0.5 mg/dL (0.15-1.2) 03/19/23 12:27 AST 49 U/L (0-32) H 03/19/23 12:27 ALT 28 U/L (0-33) 03/19/23 12:27 Alkaline Phosphatase 83 U/L (35-105) 03/19/23 12:27 Troponin T Baseline 75 ng/L (0-10) H 03/19/23 12:27 Total Protein 6.3 g/dL (6.6-8.7) L 03/19/23 12:27 Albumin 3.0 g/dL (3.5-5.2) L 03/19/23 12:27 Globulin 3.3 g/dL (1.3-4.6) 03/19/23 12:27 Lipase 18 U/L (13-60) 03/19/23 12:27 Serum Ketones Negative (Negative) 03/19/23 12:27 All radiology interpretation(s) finalized by discharge Discharge Plan Discharge Patient Disposition: Admitted As Inpatient Admit Provider: Dann Navarro Clinical Impression: Paroxysmal atrial fibrillation, Congestive heart failure, Pneumonia Condition: Stable Coding Level of Care Code ED 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
--- NOTE | 2023-03-19 12:22 | ECG_ITS ---
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 Measurements Intervals [place] Rate: 131 P: 0 [place]: 0 QRS: -32 QRSD: 83 T: 12 QT: 297 QTc: 439 Interpretive Statements ATRIAL FIBRILLATION WITH RAPID VENTRICULAR RESPONSE LOW QRS VOLTAGE [QRS DEFLECTION < 0.5/1.0 mV IN LIMB/CHEST LEADS] Compared to ECG 02/03/2023 14:22:28 Sinus rhythm no longer present Electronically Signed On 03-19-2023 16:27:32 PAIN COORDINATOR by Radha Merritt M.D. [id number]
[2023-03-19 12:33] LABS: Basophils % 0.3 %; Eosinophils # 0.1 10^3/uL (0.0-0.8); Eosinophils % 0.9 %; Hematocrit 33.1 % (36-47); Lymphocytes # 0.7 10^3/uL (0.8-4.8); Lymphocytes % 8.2 %; Mean Corpuscular HGB Conc 31.1 g/dL (30-55); Mean Corpuscular Hemoglobin 29.4 pg (27-33); Mean Corpuscular Volume 94.6 fl (85-98); Mean Platelet Volume 11.8 fL (7.4-10.4); Monocytes # 0.7 10^3/uL (0.2-0.9); Monocytes % 8.7 %; Neutrophils # 6.48 10^3/uL (1.8-7.7); Neutrophils % 81.6 %; Nucleated Red Blood Cells % 0 %; Platelet Count 213 10^3/cmm (157-399); Red Cell Distribution Width 15.6 % (12.1-15.1); White Blood Count 7.93 10^3/uL (3.29-11.43)
[2023-03-19] MEDS: sodium chloride 0.9% 1,000 ML 999 ML IV (12:49)
[2023-03-19] MEDS: dilTIAZem 100 MG in sodium chloride 0.9% (add-van) 100 ML IV (12:49)
[2023-03-19 12:54] LABS: Alkaline Phosphatase 83 U/L (35-105); Blood Urea Nitrogen 25 mg/dL (8-23); Calcium 8.9 mg/dL (8.5-10.5); Carbon Dioxide 26 mmol/L (22-29); Chloride 106 mmol/L (98-107); Creatinine Clr Calc Pharmacy 56.7003; Globulin 3.3 g/dL (1.3-4.6); Glucose 101 mg/dL (65-115); Ketone (Acetest) Serum Negative (Negative); Lipase 18 U/L (13-60); Magnesium 2.4 mg/dL (1.7-2.3); Osmolality Calculated 297 mOsm/kg (285-295); Sodium 141 mmol/L (136-145); Total Bilirubin 0.5 mg/dL (0.15-1.2); Total Protein 6.3 g/dL (6.6-8.7)
[2023-03-19 12:56] LABS: Alanine Aminotransferase 28 U/L (0-33); Anion Gap 13.3 (5-19); Aspartate Amino Transferase 49 U/L (0-32); Potassium 4.3 mmol/L (3.5-5.1)
[2023-03-19 13:06] LABS: Lactic Sepsis W/Reflex 1.1 mmol/L (0.5-2.2)
[2023-03-19 13:38] LABS: Troponin(5th) Baseline 75 ng/L (0-10)
[2023-03-19] MEDS: levofloxacin-dextrose 5 % 500 MG/100 ML PREMIX 100 MG IV (14:37)
[2023-03-19 14:56] LABS: Troponin 5 2HR 68.24 ng/L (0-10)
[2023-03-19 14:57] LABS: Troponin 5 2HR Delta -6.76 ABS# (0-10)
--- NOTE | 2023-03-19 15:04 | ECG_ITS ---
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 Measurements Intervals [place] Rate: 104 P: 0 [place]: 0 QRS: -19 QRSD: 77 T: 0 QT: 316 QTc: 417 Interpretive Statements ATRIAL FIBRILLATION WITH RAPID VENTRICULAR RESPONSE LOW QRS VOLTAGE [QRS DEFLECTION < 0.5/1.0 mV IN LIMB/CHEST LEADS] Nonspecific ST changes present Compared to ECG 03/19/2023 12:22:32 No significant change Electronically Signed On 03-19-2023 16:52:36 PRINT SHOP STENOGRAPHER by Radha Merritt M.D. [id number]
--- NOTE | 2023-03-19 15:15 | CTR_ITS ---
PROCEDURE INFORMATION: Exam: CT Head Without Contrast Exam date and time: 03/19/2023 7:13 PM Age: 77 years old Clinical indication: Altered mental status/memory loss; Additional info: AMS TECHNIQUE: Imaging protocol: Computed tomography of the head without contrast. Radiation optimization: All CT scans at this facility use at least one of these dose optimization techniques: automated exposure control; mA and/or kV adjustment per patient size (includes targeted exams where dose is matched to clinical indication); or iterative reconstruction. REPORTING DATA: Count of CT and Cardiac NM exams in prior 12 months: This patient has received 4 known CTs and 0 known cardiac nuclear medicine studies in the 12 months prior to the current study. COMPARISON: CT head wo con* [id number] 01/23/2023 1:10 PM RADIATION DOSE METRICS: Total DLP (mGy-cm): 908 FINDINGS: Brain: No acute intracranial hemorrhage. No acute territorial region of solis-white dedifferentiation. No extra-axial collection. No mass effect or midline shift. Moderate generalized parenchymal volume loss. Remote lacunar infarct in the right ventral thalamus, unchanged. Mild burden of nonspecific white matter hypoattenuation, most likely chronic microvascular ischemic change. 1.2 cm extra-axial partially calcified ovoid density along the right inferior frontal convexity, unchanged. Cerebral ventricles: No acute hyrocephalus. Paranasal sinuses: Mild left sphenoid sinus mucosal thickening, slightly increased from prior. Correlate for sinusitis. Mastoid air cells: Visualized mastoid air cells are well aerated. Orbital cavities: No acute orbital abnormality. Bones/joints: No acute calvarial fracture. Soft tissues: No acute abnormality. CT/CT head wo con* [id number] IMPRESSION: 1. No acute intracranial hemorrhage or evidence of acute territorial infarct. 2. Small partially calcified extra-axial density along the right inferior frontal convexity, unchanged, most likely a partially calcified meningioma or bulky dural calcification.
--- NOTE | 2023-03-19 15:18 | USCV_ITS ---
Destiny Quintana Age: 77 Gender: F : 1945 Exam Date: 03/19/2023 15:38 Ordering Phys: Dann Navarro MD Technologist: Kelly Randall Exam Location: [facility] [place] Indication: Pt in ER with extreme SOB BP: 111 / 90 HR: 104 Rhythm: Sinus Technical Quality: Adequate MEASUREMENTS (Male / Female) Normal Values 2D ECHO LV Diastolic Diameter PLAX 4.0 cm 4.2 - 5.9 / 3.9 - 5.3 cm LV Systolic Diameter PLAX 2.9 cm LV Chamber Size 2.4 cm IVS Diastolic Thickness 1.1 cm 0.6 - 1.0 / 0.6 - 0.9 cm IVS Systolic Thickness 1.3 cm LVPW Diastolic Thickness 1.5 cm 0.6 - 1.0 / 0.6 - 0.9 cm LVPW Systolic Thickness 1.5 cm RV Chamber Size 3.4 cm LVOT Diameter 2.0 cm LV Ejection Fraction 2D Teich 60.3 % LV Ejection Fraction MOD 2C 44.6 % LV Ejection Fraction 2C AL 47.0 % LA Diameter 3.4 cm LA Width 2.6 cm LA Height 3.8 cm RA Width 4.5 cm RA Height 4.6 cm Aorta at Sinotubular Diameter 2.9 cm IVC Diameter 1.4 cm M-MODE Aortic Annulus Diameter 3.4 cm LA Ao Ratio MM 1.2 MV E Point Septal Separation 0.1 cm DOPPLER AV Peak Velocity 117.0 cm/s LVOT Peak Velocity 101.0 cm/s AV Area Cont Eq vti 3.1 cm squared AV Area Cont Eq pk 2.8 cm squared MV Area PHT 5.6 cm squared Mitral E to A Ratio 2.9 MV E' Velocity 59.5 cm/s Mitral E to MV E' Ratio 11.7 Mitral E to LV E' Lateral Ratio 13.6 Mitral E to LV E' Septal Ratio 10.4 TR Peak Velocity 188.7 cm/s TR Peak Gradient 14.2 mmHg TR Mean Velocity 193.8 cm/s TR Mean Gradient 16.6 mmHg TR Velocity Time Integral 71.1 cm Right Atrial Pressure 3.0 mmHg Pulmonary Artery Systolic Pressu 17.2 mmHg RV Acceleration Time 0.0 s RV Ejection Time 0.2 s RV AcT/ET 0.2 FINDINGS Left Ventricle Left ventricle is normal in size. LV systolic function is normal with EF of 55 to 60%. No regional wall motion abnormalities are seen. Right Ventricle Normal in size and function Right Atrium Dilated Left Atrium Normal in size Mitral Valve Structurally normal mitral valve. Mild mitral regurgitation. Aortic Valve Structurally normal aortic valve. No significant stenosis. Mild aortic regurgitation. Tricuspid Valve Moderate tricuspid regurgitation. RVSP is 35 to 40 mmHg. This is consistent with mild pulmonary hypertension. Pulmonic Valve Not well-visualized. Mild pulmonic regurgitation. Pericardium Normal Aorta Normal in size IVC Appears to be normal CONCLUSIONS LV systolic function is normal with EF of 55 to 60%. Left atrial dilation Mild mitral regurgitation Moderate tricuspid regurgitation Mild pulmonary hypertension Mild pulmonic regurgitation Compared to prior echocardiogram from 2021, patient's tricuspid regurgitation has slightly worsened and is moderate now. Ren Baldwin MD (Electronically Signed) Final Date: 24 March 2023 08:23 S
--- NOTE | 2023-03-19 15:20 | CTR_ITS ---
PROCEDURE INFORMATION: Exam: CTA Chest With Contrast Exam date and time: 03/19/2023 7:16 PM Age: 77 years old Clinical indication: Bloating; Shortness of breath; Additional info: SOB, recent small bowel resection TECHNIQUE: Imaging protocol: Computed tomographic angiography of the chest with contrast. Exam focused on the arteries. 3D rendering (Not supervised by radiologist): MIP and/or 3D reconstructed images were created by the technologist. Radiation optimization: All CT scans at this facility use at least one of these dose optimization techniques: automated exposure control; mA and/or kV adjustment per patient size (includes targeted exams where dose is matched to clinical indication); or iterative reconstruction. Contrast material: OMNI 350; Contrast volume: 100 ml; Contrast route: INTRAVENOUS (IV); REPORTING DATA: Count of CT and Cardiac NM exams in prior 12 months: This patient has received 4 known CTs and 0 known cardiac nuclear medicine studies in the 12 months prior to the current study. COMPARISON: CT angio chest PE protcl [id number] 11/21/2021 3:04 PM RADIATION DOSE METRICS: Total DLP (mGy-cm): 858 FINDINGS: Pulmonary arteries: No pulmonary emboli. Aorta: No aortic aneurysm. No aortic dissection. Lungs: No consolidation. No masses. Pleural spaces: No pneumothorax. Small bilateral pleural effusions. Heart: cardiomegaly. No pericardial effusion, pericardial scarring which is stable. Lymph nodes: No enlarged lymph nodes. Bones/joints: There is a compression fracture of the midthoracic vertebrae which is new when compared with the previous study, recommend clinical correlation and MRI as indicated. Soft tissues: Unremarkable. PROCEDURE INFORMATION: Exam: CT Abdomen And Pelvis With Contrast Exam date and time: 03/19/2023 7:16 PM Age: 77 years old Clinical indication: Bloating; Shortness of breath; Additional info: SOB, recent small bowel resection TECHNIQUE: Imaging protocol: Computed tomography of the abdomen and pelvis with contrast. Radiation optimization: All CT scans at this facility use at least one of these dose optimization techniques: automated exposure control; mA and/or kV adjustment per patient size (includes targeted exams where dose is matched to clinical indication); or iterative reconstruction. Contrast material: OMNI 350; Contrast volume: 100 ml; Contrast route: INTRAVENOUS (IV); REPORTING DATA: Count of CT and Cardiac NM exams in prior 12 months: This patient has received 4 known CTs and 0 known cardiac nuclear medicine studies in the 12 months prior to the current study. COMPARISON: CT abdomen pelvis w con* [id number] 01/22/2023 7:40 PM RADIATION DOSE METRICS: Total DLP (mGy-cm): 858 FINDINGS: Liver: No mass. The portal vein is patent. Gallbladder and bile ducts: Gallbladder is distended with presence of sludge. Mild ductal dilation. Pancreas: No ductal dilation. Spleen: No splenomegaly. Adrenal glands: No mass. Kidneys and ureters: No hydronephrosis. No hydroureter. Motion artifact is noted. Stomach and bowel: No obstruction. No mucosal thickening. There are no abnormally dilated bowel loops. Postop changes are noted. The rectum is distended with feces measures 52 mm in transverse diameter consistent with constipation and possible impaction. Appendix: No evidence of appendicitis. Intraperitoneal space: No free air. Small amount of free fluid in the pelvis. Vasculature: No abdominal aortic aneurysm. There is atherosclerotic disease. Lymph nodes: No enlarged lymph nodes. Urinary bladder: Decompressed secondary to La catheter.. Reproductive: Unremarkable as visualized. Bones/joints: No acute fracture. There is severe degenerative disease of the spine. There is a grade 1 anterolisthesis of L 3 on L4. Soft tissues: There is diffuse subcutaneous edema. CT/CT angio chest w abd pel w con IMPRESSION: 1. No pulmonary emboli. 2. Small bilateral pleural effusions. IMPRESSION: 1. Postop changes with no evidence of obstruction. 2. Diffuse subcutaneous edema. 3. Constipation. Possible fecal impaction.
--- NOTE | 2023-03-19 15:26 | USR_ITS ---
PROCEDURE INFORMATION: Exam: US Duplex Lower Extremity Veins, Bilateral Exam date and time: 03/19/2023 4:02 PM Age: 77 years old Clinical indication: Edema, localized; Lower extremity, bilateral; Patient HX: Came for SOB. Large tr jet; Additional info: Dvt TECHNIQUE: Imaging protocol: Real-time duplex ultrasound of the bilateral extremities with 2-D solis scale, color Doppler flow and spectral waveform analysis including responses to compression and other maneuvers (when performed) with image documentation. Complete exam focused on the lower extremity veins. COMPARISON: US ROR venous duplex [facility] 10/15/2021 1:01 PM FINDINGS: Veins: Patent without thrombus. Normal Doppler waveforms. Normal compressibility and/or augmentation response. US/CV venous duplex [facility] [id number] IMPRESSION: No evidence of deep vein thrombosis.
--- NOTE | 2023-03-19 15:29 | PM.HP ---
Providers/Chief Complaint Admitting Physician: Dann Navarro MD Primary Care Provider: Ying Bonilla MD Chief Complaint: weakness and edema History of Present Illness Destiny Quintana is a 77 year old female with a past medical history of paroxysmal atrial fibrillation, not on anticoagulation, history of diastolic CHF, history of possible Lewy body dementia, history of lower extremity edema, history of anemia, history of chronic hearing loss, recent history of left femoral hernia repair, who presents to [facility] due to shortness of breath, lower extreme edema, increased confusion. Currently patient alert to person, not to place, not to time, she tells me that she is the president, when asked her why she is here, she tells that she is delivering a baby, she is currently on 2 L, no evidence of respiratory distress, currently in A-fib on Cardizem at 15 heart rates in the 130s, has 3+ pitting edema bilateral lower extremities, I cannot discern any facial droop, no slurring of her words, pupils equal round reactive to light, spontaneous movement of upper and lower extremities. I spoke to [facility], who tells me that over the last few weeks, patient has developed increased lower extremity edema, she has gained roughly about 20 pounds, due to increased lower extremity edema she has been less mobile, more bedbound, they have been trying to diurese her, but its been difficult, she has been increasingly short of breath, and yesterday she started to have episodes of confusion, no fevers, no recent history of UTI, she recently was discharged from the hospital for left femoral hernia surgery, no recent falls, recent injuries, nursing staff in the ER tell me that she has been more alert awake, she has received Levaquin, she is on Cardizem possibly she is encephalopathic currently, from left lower lobe pneumonia Review of Systems General: Reports: ROS unobtainable due to mental status Medications/Allergies Home Medications Medication Instructions Recorded Confirmed Last Taken Type metoprolol tartrate 25 mg tablet 25 mg PO BID #180 tabs 03/19/22 03/19/23 03/18/23 Rx Prevagen 1 cap PO QAM 12/19/22 03/19/23 03/18/23 History aspirin 325 mg tablet 325 mg PO QAM 12/19/22 03/19/23 03/18/23 History furosemide 20 mg tablet 20 mg PO DAILY 12/19/22 03/19/23 03/18/23 History magnesium oxide 400 mg PO QAM PRN Muscle Spasm 12/19/22 03/19/23 02/26/23 History acetaminophen 325 mg tablet 650 mg (2 x 325 mg) PO Q6H #90 tabs 01/29/23 03/19/23 03/17/23 Rx polyethylene glycol 3350 17 gram 17 g PO DAILY #10 ea 01/29/23 03/19/23 03/18/23 Rx oral powder packet comp.stocking,knee,long,medium #12 ea 03/11/23 03/19/23 Unknown Rx bisacodyl 10 mg rectal suppository 10 mg NV DAILY PRN Constipation 03/19/23 03/19/23 Unknown History (Dulcolax (bisacodyl)) bisacodyl 5 mg tablet,delayed 5 mg PO DAILY PRN Constipation 03/19/23 03/19/23 Unknown History release (Dulcolax (bisacodyl)) magnesium hydroxide 400 mg/5 mL 15 ml PO Q72H PRN Constipation 03/19/23 03/19/23 Unknown History oral suspension (Milk of Magnesia) sodium phosphates 19 gram-7 118 ml NV DAILY PRN Constipation 03/19/23 03/19/23 Unknown History gram/118 mL enema (Fleet Enema) Allergies Allergy/AdvReac Type Severity Reaction Status Date / Time No Known Allergies Allergy Verified 03/19/23 13:11 PFSH Acute PFSH: Medical History Paroxysmal atrial fibrillation Dehydration Femoral hernia of left side with gangrene and obstruction Strangulated inguinal hernia Incarcerated inguinal hernia Visual hallucinations Confusion History of CVA (cerebrovascular accident) Memory changes Peripheral arterial disease Lung nodule Pulmonary hypertension Chest pain Ovarian cystic mass Incomplete bladder emptying Palpitations History of hematuria History of bladder cancer Chronic cystitis Surgical History History of resection of small bowel Hx of hernia repair Dr. Reyes 01/23/23 open left femoral hernia repair with mesh, diagnostiv laparascopy, laparotomy with small bowel resection and primary anastomosis History of ear surgery History of lateral meniscus repair of right knee History of cataract removal with insertion of prosthetic lens History of right salpingo-oophorectomy Status post surgical removal and fulguration of bladder neoplasm Family History Father Colon cancer Sister Multiple myeloma Denies family history of Ovarian cancer Diabetes Dementia Heart disease Hypercholesteremia Breast cancer Hypertension Uterine cancer Thyroid disease Stroke Social History Smoking and tobacco/nicotine status: former use of tobacco/nicotine Quit status (tobacco/nicotine): has quit using Year quit tobacco: 2020 Alcohol intake: never Household members: none Number of children: 1 Number of grandchildren: 1 Current occupational status: retired 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 Joyce/Rastafari: Pentecostal Special joyce needs: Yes Details: call environmental quality analyst for final right Agree to transfusion: Yes Vitals/I&O/Wt Last Vital Signs Temp 99.4 F 03/19/23 12:08 Pulse 115 H 03/19/23 13:46 Resp 18 03/19/23 13:46 BP 113/85 03/19/23 13:46 Pulse Ox 94 03/19/23 13:46 O2 Del Method Nasal Cannula 03/19/23 13:46 O2 Flow Rate 2 03/19/23 13:46 03/19/23 03/19/23 03/19/23 06:59 14:59 22:59 Intake Total 1018.791 / 1018.791 Balance 1018.791 / 1018.791 Weight last 48 hrs Weight 68.039 kg Physical Exam Const: COMMON NORMALS: no acute distress EXAM LIMITATIONS: altered mental status ORIENTATION/CONSCIOUSNESS: Yes awake, Yes oriented to person and Yes confused; not oriented to place and not oriented to time HENMT: COMMON NORMALS: normocephalic HEAD & SCALP: normocephalic Eye: COMMON NORMALS: Equal, round and reactive pupils present Neck/C-Spine: COMMON NORMALS: no JVD Lymph: LYMPHATIC: no lymphadenopathy noted Resp: COMMON NORMALS: normal respiratory effort, No retractions and No use of accessory muscles OTHER: Wheezing and crackles in all lung hess Cardio: COMMON NORMALS: S1 normal heart sound present and S2 normal heart sound present RATE: tachycardic RHYTHM: abnormal rhythm HEART SOUNDS: S1 normal heart sound present and S2 normal heart sound present GI: OTHER: Abdomen is soft, distended, decreased bowel sounds in all 4 quadrants does have diffuse tenderness, no guarding, no rebound, no rigidity Neuro: OTHER: Does not follow neurologic testing, no facial droop no slurring of words, has spontaneous movement of upper and lower extremities Skin: NARRATIVE SKIN EXAM: 3+ pitting edema Data 03/19/23 12:27 03/19/23 12:27 Micro: Microbiology 03/19/23 14:30 Blood Culture - Preliminary Blood SPECIMEN COLLECTED 03/19/23 14:13 Blood Culture - Preliminary Blood SPECIMEN COLLECTED A&P Assessment and plan (1) Acute hypoxemic respiratory failure: (2) Pneumonia: (3) Diastolic CHF, acute: (4) Grade II diastolic dysfunction: (5) Hx of hernia repair: (6) Congestive heart failure: (7) Atrial fibrillation with rapid ventricular response: (8) Acute encephalopathy: (9) NSTEMI (non-ST elevated myocardial infarction): Plan Acute hypoxic respiratory failure, ? Secondary to diastolic CHF exacerbation, pulmonary edema, fluid overload, lower extreme edema, ? With left lower lobe pneumonia ? Plan, ? CT angiogram of the chest, recently immobile after hernia surgery, D-dimer ? Respiratory therapy eval, ? Currently on 2 L, ? ABG, ? Lasix 40 mg IV push, with albumin, ? Full code, ? Heparin drip for DVT prophylaxis, Diastolic CHF exacerbation, ? Monitor creatinine, monitor potassium, treat urine output, ? Cardiac echo, NSTEMI, Type I versus type II, ? Social EKGs, short troponins, telemetry monitoring, ? Continue heparin drip, ? Aspirin, statin, A left lower lobe pneumonia, -blood cultures -sputum cultures -has received Levaquin emergency room ? Switch to Rocephin and azithromycin on discharge A-fib with RVR, ? He is maximized on Cardizem heart rate still in the 130s, ? Switch to amiodarone bolus, amiodarone drip ? Heparin drip, Acute encephalopathy, ? Secondary to pneumonia, ? CT of the head, ? Neurochecks, aspiration precautions, night stroke scale, Recent history of femoral hernia repair, currently abdomen is distended, decreased bowel sounds, she has diffuse tenderness, ? We will do CT scan abdomen pelvis Bilateral extremity edema, venous ultrasound for DVT Full code, Heparin drip for DVT prophylaxis Attestations Medical Necessity Statement*: Patient requires hospitalization for acute hypoxic respiratory failure, diastolic CHF exacerbation, left lower lobe pneumonia, NSTEMI, A-fib with RVR, acute encephalopathy, fluid overload, pulmonary edema, inpatient, greater than 2 midnights Diagnoses Acute hypoxemic respiratory failure J96.01 Pneumonia J18.9 Diastolic CHF, acute I50.31 Grade II diastolic dysfunction I51.89 Hx of hernia repair Z98.890; Z87.19 Congestive heart failure I50.9 Atrial fibrillation with rapid ventricular response I48.91 Acute encephalopathy G93.40 NSTEMI (non-ST elevated myocardial infarction) I21.4
[2023-03-19 15:44] LABS: INR 1.18 (0.8-1.2); Partial Thromboplastin Time 34.2 SECONDS (23.9-36.7)
[2023-03-19 15:59] LABS: NT Pro B Type Natriuretic Pept 5454 pg/mL (0-450); Procalcitonin 0.08 ng/mL (0-0.5)
[2023-03-19] MEDS: amiodarone 150 MG/100 ML PREMIX 400 MG IV (16:00)
[2023-03-19] MEDS: pantoprazole 40 mg SDV IVP (16:01)
[2023-03-19] MEDS: FUROsemide 10 mg/mL SDV 4mL 40 MG IVP (16:03)
[2023-03-19 16:09] LABS: C Reactive Protein 115.7 mg/L (0.0-4.9)
[2023-03-19] MEDS: albumin 37.5 GM/150 ML VIAL IV (16:09)
--- NOTE | 2023-03-19 16:47 | PC.NURSE ---
PATIENT BECOMING CONFUSED. PATIENT MAKING STATEMENTS LIKE I DELIVERED A BABY YESTERDAY. PATIENT CONTINUALLY POINTING AND TALKING TO OBJECTS IN ROOM. PATIENT REDIRECTED BY NURSE THAT SHE IS IN THE HOSPITAL. AFTER INFORMING PATIENT OF LOCATION, PATIENT ABLE TO VERBALIZED NAME, , YEAR, AND PRESIDENT. PATENT AIRWAY, UNLABORED RESPIRATIONS, AND APPROPRIATE COLOR.
[2023-03-19 16:49] LABS: ABG PCO2 31.7 mmHg (35-45); ABG PH Result 7.51 (7.35-7.45); Base Excess ABG 2.6 mmol/L (-2.0-2.0); Blood Gas Allen Test Pos; Blood Gas Operator Identificat WALCI; Blood Gas Sample Site Radial, right; Blood Gas Sample Type Arterial; HCO3 ABG 25.4 mmol/L (22-26); Oxygen Device NC; PO2 ABG 62.9 mmHg (80.0-100.0)
[2023-03-19 17:20] LABS: Add Urine Microscopic? YES; Bilirubin Urine Neg (Negative); Blood Urine Neg (Negative); Glucose Urine UA Norm (Normal); Ketones Urine Negative (Negative); Leukocyte Esterase Urine 1+ (Negative); Nitrate Urine Negative (Negative); Protein Urine Neg (Negative); Urine Appearance SL Hazy (CLEAR); Urine Color Yellow (Yellow); Urobilinogen Urine Norm (Negative); pH Urine 6 (5-7)
[2023-03-19 17:21] LABS: Add Urine Culture? Yes; Bacteria Urine 3+ /hpf; RBC Urine 0-4 /hpf (0-2); WBC Urine 40-55 /hpf (0-5)
[2023-03-19] MEDS: iohexol 350 mg/mL 500 mL Btl (per mL) IV (19:27)
[2023-03-19 19:57] LABS: Troponin 5 6HR 73.05 ng/L (0-10)
[2023-03-19 20:01] LABS: Troponin 5 6HR Delta -1.95 ng/L (0-12)
--- NOTE | 2023-03-19 20:12 | ECG_ITS ---
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 Measurements Intervals [place] Rate: 117 P: 0 MN: 0 QRS: 159 QRSD: 90 T: 150 QT: 171 QTc: 239 Interpretive Statements SUPRAVENTRICULAR TACHYCARDIA, POSSIBLE ATRIAL FIBRILLATION SIGNIFICANT BASELINE ARTIFACT Compared to ECG 03/19/2023 15:20:25 Myocardial infarct finding now present Atrial fibrillation no longer present ST (T wave) deviation no longer present Electronically Signed On 03-21-2023 6:17:42 MANAGER [employer]MENT[employer] SERVICES by Sonam Williamson M.D. [id number]
[2023-03-19] MEDS: heparin drip 25,000 UNIT/500 ML PREMIX 15 UNIT IV (23:22)
[2023-03-20] VITALS: BP 87/65; PULSE 100; RESP 22; TEMP 37.4; O2SAT 97
[2023-03-20 04:00] VITALS: BP 100/74; PULSE 109; RESP 22; TEMP 36.8; O2SAT 93
[2023-03-20 06:48] LABS: Basophils % 0.2 %; Eosinophils # 0.1 10^3/uL (0.0-0.8); Eosinophils % 1.6 %; Hematocrit 27.9 % (36-47); Lymphocytes # 0.4 10^3/uL (0.8-4.8); Lymphocytes % 6.9 %; Mean Corpuscular HGB Conc 31.5 g/dL (30-55); Mean Corpuscular Hemoglobin 29.2 pg (27-33); Mean Corpuscular Volume 92.7 fl (85-98); Mean Platelet Volume 11.3 fL (7.4-10.4); Monocytes # 0.5 10^3/uL (0.2-0.9); Monocytes % 8.5 %; Neutrophils # 5.27 10^3/uL (1.8-7.7); Neutrophils % 82.5 %; Nucleated Red Blood Cells % 0 %; Platelet Count 169 10^3/cmm (157-399); Red Blood Count 3.01 10^6/uL (3.85-5.65); Red Cell Distribution Width 15.2 % (12.1-15.1); White Blood Count 6.38 10^3/uL (3.29-11.43)
[2023-03-20 07:06] LABS: Partial Thromboplastin Time 57.4 SECONDS (23.9-36.7)
[2023-03-20 07:19] LABS: Alanine Aminotransferase 23 U/L (0-33); Albumin Level 3.2 g/dL (3.5-5.2); Alkaline Phosphatase 71 U/L (35-105); Anion Gap 13.6 (5-19); Aspartate Amino Transferase 35 U/L (0-32); Blood Urea Nitrogen 21 mg/dL (8-23); Calcium 8.6 mg/dL (8.5-10.5); Carbon Dioxide 25 mmol/L (22-29); Chloride 105 mmol/L (98-107); Globulin 2.5 g/dL (1.3-4.6); Glucose 101 mg/dL (65-115); Magnesium 2.1 mg/dL (1.7-2.3); Osmolality Calculated 293 mOsm/kg (285-295); Phosphorus 2.8 mg/dL (2.5-4.5); Potassium 3.6 mmol/L (3.5-5.1); Sodium 140 mmol/L (136-145); Thyroid Stimulating Hormone 4.18 uIU/mL (0.27-4.20); Total Bilirubin 0.5 mg/dL (0.15-1.2); Total Protein 5.7 g/dL (6.6-8.7)
[2023-03-20 07:26] LABS: Estmated Average Glucose 85; Hemoglobin A1C 4.6 % (4.0-6.0)
[2023-03-20 07:50] LABS: Cholesterol 114 mg/dL (0-200); HDL Cholesterol 38 mg/dL (60-100); LDL Cholesterol Calculated 57 mg/dL (50-129); Triglycerides 96 mg/dL (0-150)
[2023-03-20 08:00] VITALS: BP 116/76; PULSE 108; PULSE 109; RESP 16; RESP 22; TEMP 37.6; O2SAT 96; O2SAT 98
--- NOTE | 2023-03-20 09:07 | PC.CHAP ---
Pastoral Care Encounter/Spiritual Assessment Type of Contact [] Declined veneer jointer visit [] Patient/Family/Request visit [] Outpatient visit [] Follow-up visit [] Physician referral [] Code/Alert [x] Routine visit [] Staff referral [] Actively dying [] Patient sleeping [] Family support [] [] Out of room [] Palliative care [] [] Receiving care in room [] Pre-surgical visit [] Trauma [] Long length of stay [] ICU visit [] Other: Relational/Emotional Strength [x] Patient feels connected with others/family/visitors/staff [] Distress [] Loneliness/isolation [] Abandonment Spirituality of Patient [] Person of Joyce [] Attends Yazidism of their Joyce [x] Believes in Prayer [] Reads Bible or Sikh materials [] There are Spiritual issues to be addressed Calibrator Barometers Interventions [x] Prayer [] Active listening [] Non-anxious presence [x] Spiritual/emotional support [] Crisis/trauma care [] Spiritual counseling [] Bereavement support [] Provided bereavement packet [] Provided Bible/devotional materials [] Provided toy/stuffed animal, coloring book to patient or family member [] Provided Communion [] Anointing/[place] [] Salvation [] Completed spiritual assessment [] Other: Impact on Illness or Injury [] Angry [] Fearful [x] Anxious [] Often cries [] Exhaustion [] Unable to work [] Unable to attend confucianist [] Unable to walk/stand [] Unable to read [] Unable to drive [] Unable to eat/drink [] Unable to sleep [] Unable to be with family [] Patient intubated [] Other: Summary Time spent with patient 5 min
[2023-03-20] MEDS: potassium chloride ER 20 mEq Tablet PO (09:28)
[2023-03-20] MEDS: FUROsemide 10 mg/mL SDV 4mL 40 MG IVP ×2 (09:28→10:08)
[2023-03-20] MEDS: metOLazone 5 MG Tablet PO ×2 (09:28→10:08)
[2023-03-20] MEDS: cefTRIAXone 1,000 MG in sodium chloride 0.9% (plus) 50 ML 100 MG IV (10:05)
[2023-03-20] MEDS: azithromycin 500 MG in sodium chloride 0.9% 250 ML 250 MG IV (10:05)
[2023-03-20] MEDS: amiodarone 200 mg Tablet 400 MG PO ×2 (10:07→18:09)
[2023-03-20 11:30] VITALS: BP 106/70; PULSE 75; RESP 25; TEMP 37
[2023-03-20 12:14] LABS: Partial Thromboplastin Time 50.5 SECONDS (23.9-36.7)
[2023-03-20] MEDS: pantoprazole 40 mg SDV IVP (15:26)
[2023-03-20 16:00] VITALS: BP 97/62; PULSE 74; RESP 27; TEMP 37.6; O2SAT 97
--- NOTE | 2023-03-20 18:14 | P.PN_ITS ---
Subjective 2 Subjective: Patient was seen earlier this morning, she is alert to person, not to place, not to time she can follow commands but is remains confused, denies any nausea, no vomiting, no chest pain Vitals/I&O/Wt Last Vital Signs Temp 99.7 F H 03/20/23 16:00 Pulse 74 03/20/23 16:00 Resp 27 H 03/20/23 16:00 BP 97/62 03/20/23 16:00 Pulse Ox 97 03/20/23 16:00 O2 Del Method Nasal Cannula 03/20/23 16:00 O2 Flow Rate 2 03/20/23 08:00 03/20/23 03/20/23 03/20/23 06:59 14:59 22:59 Intake Total 0 / 1589.041 499.5 / 499.5 200 / 699.5 Output Total 450 / 3450 1950 / 1950 Balance -450 / -1860.959 -1450.5 / -1450.5 200 / -1250.5 Weight last 48 hrs Weight 51.483 kg Weight 52.163 kg Weight 68.039 kg Physical Exam 2 Const: COMMON NORMALS: no acute distress Resp: COMMON NORMALS: normal respiratory effort, No retractions, No use of accessory muscles and clear to auscultation bilaterally AUSCULTATION: clear to auscultation bilaterally Cardio: COMMON NORMALS: S1 normal heart sound present and S2 normal heart sound present RATE: tachycardic RHYTHM: abnormal rhythm HEART SOUNDS: S 1 normal heart sound present and S2 normal heart sound present GI: COMMON NORMALS: Normal to inspection, nondistended, normoactive bowel sounds present and non-tender Extremity: COMMON NORMALS: no pedal edema Psych: COMMON NORMALS: mental status grossly normal Urinary Catheter Management: La: Cath Placed During This Visit: yes Reason for Continuing Indwelling Catheter: Acute Urinary Retention or Obstruction Urinary Catheter Date of Insertion: 03/19/23 Urinary Catheter Time of Insertion: 16:35 Data 03/20/23 06:38 03/20/23 06:38 Micro: Microbiology 03/19/23 14:30 Blood Culture - Preliminary Blood NEGATIVE TO DATE 03/19/23 14:13 Blood Culture - Preliminary Blood NEGATIVE TO DATE 03/19/23 16:31 Urine Culture - Preliminary Urine,Clean Catch Strep species, gamma-hemolytic A&P Assessment and plan (1) Acute hypoxemic respiratory failure: (2) Pneumonia: (3) Diastolic CHF, acute: (4) Grade II diastolic dysfunction: (5) Hx of hernia repair: (6) Congestive heart failure: (7) Atrial fibrillation with rapid ventricular response: (8) Acute encephalopathy: (9) NSTEMI (non-ST elevated myocardial infarction): Plan Acute hypoxic respiratory failure, ? Secondary to diastolic CHF exacerbation, pulmonary edema, fluid overload, lower extreme edema, ? With left lower lobe pneumonia ? Plan, ? CT angiogram of the chest, recently immobile after hernia surgery, D-dimer negative for DVT ? Respiratory therapy eval, ? Currently on 2 L, ? Lasix 40 mg IV push, with albumin, ? Full code, ? Heparin drip for DVT prophylaxis, Diastolic CHF exacerbation, ? Monitor creatinine, monitor potassium, treat urine output, ? Cardiac echo, NSTEMI, Type I versus type II, ? Social EKGs, short troponins, telemetry monitoring, ? Continue heparin drip, ? Aspirin, statin, A left lower lobe pneumonia, -blood cultures -sputum cultures -has received Levaquin emergency room ? Switch to Rocephin and azithromycin on discharge A-fib with RVR, ? He is maximized on Cardizem heart rate still in the 130s, ? Switch to amiodarone bolus, amiodarone drip ? Heparin drip, Acute encephalopathy, ? Secondary to pneumonia, ? CT of the head, ? Neurochecks, aspiration precautions, night stroke scale, Recent history of femoral hernia repair, currently abdomen is distended, decreased bowel sounds, she has diffuse tenderness, ? CT scan abdomen pelvis within normal limits Bilateral extremity edema, venous ultrasound for negative DVT Full code, Heparin drip for DVT prophylaxis Attestations 2 Medical Necessity Statement*: Patient requires hospitalization for respiratory failure, fluid overload requiring diuresis, A-fib with RVR, on amiodarone drip, Diagnoses Acute hypoxemic respiratory failure J96.01 Pneumonia J18.9 Diastolic CHF, acute I50.31 Grade II diastolic dysfunction I51.89 Hx of hernia repair Z98.890; Z87.19 Congestive heart failure I50.9 Atrial fibrillation with rapid ventricular response I48.91 Acute encephalopathy G93.40 NSTEMI (non-ST elevated myocardial infarction) I21.4
[2023-03-20 20:00] VITALS: BP 96/75; PULSE 86; RESP 28; TEMP 37.3; O2SAT 97
[2023-03-20 20:26] LABS: Partial Thromboplastin Time 50.2 SECONDS (23.9-36.7)
[2023-03-20] MEDS: heparin 5,000 unit/mL INJ 1 mL IV (20:58)
[2023-03-21] VITALS (14 sets, daily range): BP systolic 87–129; BP diastolic 55–73; PULSE 63–99; RESP 16–28; TEMP 36.8–37.4; O2SAT 92–99
[2023-03-21 03:54] LABS: Basophils % 0.3 %; Eosinophils # 0.2 10^3/uL (0.0-0.8); Eosinophils % 2.8 %; Lymphocytes # 0.5 10^3/uL (0.8-4.8); Lymphocytes % 8.6 %; Mean Corpuscular HGB Conc 30.3 g/dL (30-55); Mean Corpuscular Hemoglobin 28.7 pg (27-33); Mean Corpuscular Volume 94.5 fl (85-98); Mean Platelet Volume 11.9 fL (7.4-10.4); Monocytes # 0.6 10^3/uL (0.2-0.9); Neutrophils # 4.81 10^3/uL (1.8-7.7); Neutrophils % 79.1 %; Nucleated Red Blood Cells % 0 %; Platelet Count 188 10^3/cmm (157-399); Red Blood Count 3.07 10^6/uL (3.85-5.65); White Blood Count 6.08 10^3/uL (3.29-11.43)
[2023-03-21 04:13] LABS: Partial Thromboplastin Time 61.7 SECONDS (23.9-36.7)
[2023-03-21 04:22] LABS: Alanine Aminotransferase 24 U/L (0-33); Albumin Level 3.1 g/dL (3.5-5.2); Alkaline Phosphatase 80 U/L (35-105); Anion Gap 13.6 (5-19); Aspartate Amino Transferase 32 U/L (0-32); Blood Urea Nitrogen 20 mg/dL (8-23); Calcium 8.5 mg/dL (8.5-10.5); Carbon Dioxide 25 mmol/L (22-29); Chloride 105 mmol/L (98-107); Globulin 2.4 g/dL (1.3-4.6); Glucose 110 mg/dL (65-115); Osmolality Calculated 293 mOsm/kg (285-295); Phosphorus 2.7 mg/dL (2.5-4.5); Potassium 3.6 mmol/L (3.5-5.1); Sodium 140 mmol/L (136-145); Total Bilirubin 0.4 mg/dL (0.15-1.2); Total Protein 5.5 g/dL (6.6-8.7)
[2023-03-21] MEDS: heparin drip 25,000 UNIT/500 ML PREMIX 17 UNIT IV (06:19)
[2023-03-21] MEDS: amiodarone 200 mg Tablet 400 MG PO ×2 (08:38→17:05)
[2023-03-21] MEDS: cefTRIAXone 1,000 MG in sodium chloride 0.9% (plus) 50 ML 100 MG IV (08:38)
[2023-03-21] MEDS: azithromycin 500 MG in sodium chloride 0.9% 250 ML 250 MG IV (09:27)
[2023-03-21 09:39] LABS: Partial Thromboplastin Time 56.9 SECONDS (23.9-36.7)
[2023-03-21] MEDS: FUROsemide 40 mg Tablet PO (10:48)
--- NOTE | 2023-03-21 13:44 | P.PN_ITS ---
Subjective 2 Subjective: Patient was seen this morning, she is alert to person, not to place, not to time, she denies any chest pain, Vitals/I&O/Wt Last Vital Signs Temp 98.4 F 03/21/23 12:00 Pulse 69 03/21/23 12:00 Resp 17 03/21/23 12:00 BP 119/67 03/21/23 12:00 Pulse Ox 98 03/21/23 12:00 O2 Del Method Nasal Cannula 03/21/23 12:00 O2 Flow Rate 2 03/21/23 09:00 03/20/23 03/21/23 03/21/23 22:59 06:59 14:59 Intake Total 331.2 / 830.7 460.650 / 1291.350 540 / 540 Output Total 250 / 2200 650 / 2850 450 / 450 Balance 81.2 / -1369.3 -189.350 / -1558.650 90 / 90 Weight last 48 hrs Weight 44.18 kg Weight 51.483 kg Weight 52.163 kg Physical Exam 2 Const: COMMON NORMALS: no acute distress ORIENTATION/CONSCIOUSNESS: Yes awake and Yes oriented to person; not oriented to place and not oriented to time Resp: COMMON NORMALS: normal respiratory effort, No retractions, No use of accessory muscles and clear to auscultation bilaterally AUSCULTATION: clear to auscultation bilaterally Cardio: COMMON NORMALS: regular rate, regular rhythm, S1 normal heart sound present and S2 normal heart sound present RATE: regular rate RHYTHM: r egular rhythm HEART SOUNDS: S1 normal heart sound present and S2 normal heart sound present GI: COMMON NORMALS: Normal to inspection, nondistended, normoactive bowel sounds present Extremity: NARRATIVE EXTREMITY EXAM: 1+ edema Neuro: SENSORIUM/ORIENTATION: Yes oriented to person, No oriented to place and No oriented to time Psych: COMMON NORMALS: mental status grossly normal Urinary Catheter Management: La: Cath Placed During This Visit: yes Reason for Continuing Indwelling Catheter: Acute Urinary Retention or Obstruction Urinary Catheter Date of Insertion: 03/19/23 Urinary Catheter Time of Insertion: 16:35 Data 03/21/23 02:58 03/21/23 02:58 Micro: Microbiology 03/19/23 16:31 Urine Culture - Final Urine,Clean Catch Enterococcus faecalis 03/19/23 14:30 Blood Culture - Preliminary Blood NEGATIVE TO DATE 03/19/23 14:13 Blood Culture - Preliminary Blood NEGATIVE TO DATE A&P Assessment and plan (1) Acute hypoxemic respiratory failure: (2) Pneumonia: (3) Diastolic CHF, acute: (4) Grade II diastolic dysfunction: (5) Hx of hernia repair: (6) Congestive heart failure: (7) Atrial fibrillation with rapid ventricular response: (8) Acute encephalopathy: (9) NSTEMI (non-ST elevated myocardial infarction): Plan Acute hypoxic respiratory failure, ? Secondary to diastolic CHF exacerbation, pulmonary edema, fluid overload, lower extreme edema, ? With left lower lobe pneumonia ? Plan, ? CT angiogram of the chest, recently immobile after hernia surgery, D-dimer negative for DVT ? Respiratory therapy eval, ? Currently on 2 L, ? Lasix 40 mg p.o. daily ? Full code, ? Heparin drip for DVT prophylaxis, Diastolic CHF exacerbation, ? Monitor creatinine, monitor potassium, treat urine output, ? Cardiac echo, NSTEMI, Type I versus type II, ? Social EKGs, short troponins, telemetry monitoring, ? Continue heparin drip, ? Aspirin, statin, A left lower lobe pneumonia, -blood cultures -sputum cultures -has received Levaquin emergency room ? Has received Rocephin, azithromycin switch to cefepime tomorrow Enterococcus UTI, ? Start vancomycin A-fib with RVR, ? He is maximized on Cardizem heart rate still in the 130s, ? Switch to amiodarone bolus, amiodarone drip ? Heparin drip, Acute encephalopathy, ? Secondary to pneumonia, ? CT of the head, ? Neurochecks, aspiration precautions, night stroke scale, Recent history of femoral hernia repair, currently abdomen is distended, decreased bowel sounds, she has diffuse tenderness, ? CT scan abdomen pelvis within normal limits Bilateral extremity edema, venous ultrasound for negative DVT Full code, Heparin drip for DVT prophylaxis Attestations 2 Medical Necessity Statement*: Patient requires hospitalization for Enterococcus UTI, pneumonia, atrial fibrillation, fluid overload Diagnoses Acute hypoxemic respiratory failure J96.01 Pneumonia J18.9 Diastolic CHF, acute I50.31 Grade II diastolic dysfunction I51.89 Hx of hernia repair Z98.890; Z87.19 Congestive heart failure I50.9 Atrial fibrillation with rapid ventricular response I48.91 Acute encephalopathy G93.40 NSTEMI (non-ST elevated myocardial infarction) I21.4
[2023-03-21] MEDS: vancomycin 500 MG in sodium chloride 0.9% (plus) 100 ML 200 MG IV (14:56)
[2023-03-21 15:39] LABS: Ferritin 229 ng/mL (15-150); Iron 16 ug/dL (37-145)
[2023-03-21] MEDS: pantoprazole 40 mg SDV IVP (17:04)
[2023-03-21 17:26] LABS: Partial Thromboplastin Time 54.4 SECONDS (23.9-36.7)
--- NOTE | 2023-03-21 18:11 | PC.NURSE ---
Provider is notified of PTT drawn at 1649. Provider said no change and see what her next PTT is since her last two PTTs were in the no change range.
[2023-03-22] VITALS (9 sets, daily range): BP systolic 111–124; BP diastolic 63–77; PULSE 64–74; RESP 17–21; TEMP 36.4–37.6; O2SAT 93–97
[2023-03-22 01:42] LABS: Basophils % 0.3 %; Eosinophils # 0.1 10^3/uL (0.0-0.8); Eosinophils % 1.9 %; Lymphocytes # 0.5 10^3/uL (0.8-4.8); Mean Corpuscular HGB Conc 31.3 g/dL (30-55); Mean Corpuscular Hemoglobin 28.8 pg (27-33); Mean Platelet Volume 11.8 fL (7.4-10.4); Monocytes # 0.5 10^3/uL (0.2-0.9); Monocytes % 8.4 %; Neutrophils # 5.04 10^3/uL (1.8-7.7); Neutrophils % 81.1 %; Nucleated Red Blood Cells % 0 %; Platelet Count 188 10^3/cmm (157-399); Red Blood Count 3.26 10^6/uL (3.85-5.65); Red Cell Distribution Width 14.8 % (12.1-15.1); White Blood Count 6.22 10^3/uL (3.29-11.43)
[2023-03-22 02:06] LABS: Alanine Aminotransferase 32 U/L (0-33); Alkaline Phosphatase 107 U/L (35-105); Anion Gap 13.6 (5-19); Aspartate Amino Transferase 34 U/L (0-32); Blood Urea Nitrogen 16 mg/dL (8-23); Calcium 8.8 mg/dL (8.5-10.5); Carbon Dioxide 28 mmol/L (22-29); Chloride 100 mmol/L (98-107); Globulin 2.8 g/dL (1.3-4.6); Glucose 122 mg/dL (65-115); Magnesium 2.1 mg/dL (1.7-2.3); Osmolality Calculated 288 mOsm/kg (285-295); Potassium 3.6 mmol/L (3.5-5.1); Sodium 138 mmol/L (136-145); Total Bilirubin 0.4 mg/dL (0.15-1.2); Total Protein 5.8 g/dL (6.6-8.7)
[2023-03-22 05:10] LABS: Partial Thromboplastin Time 58.5 SECONDS (23.9-36.7)
[2023-03-22] MEDS: heparin drip 25,000 UNIT/500 ML PREMIX 17 UNIT IV (07:10)
[2023-03-22] MEDS: cefepime 1,000 MG in sodium chloride 0.9% (plus) 50 ML 100 MG IV ×2 (08:59→21:49)
[2023-03-22] MEDS: FUROsemide 40 mg Tablet PO (09:06)
[2023-03-22] MEDS: amiodarone 200 mg Tablet 400 MG PO ×2 (09:06→18:09)
[2023-03-22] MEDS: vancomycin 500 MG in sodium chloride 0.9% (plus) 100 ML 200 MG IV (09:14)
[2023-03-22] MEDS: apixaban 5 mg Tablet PO (12:20)
--- NOTE | 2023-03-22 14:28 | P.PN_ITS ---
Subjective 2 Subjective: Patient was seen this morning, she is alert to person, not to place, not to time, she does not follow commands at times, patient was reexamined in the afternoon with her daughter at bedside, she denies any shortness of breath, discussed goals of care, for now continue diuresis, heart rates are better, normal sinus rhythm, continue amiodarone continue blood thinners switched over from heparin drip to Eliquis, continue diuresis, she also has Enterococcus UTI have started on vancomycin, is on cefepime for pneumonia, will continue monitoring, patient's daughter is agreeable, according to daughter her mentation is about at baseline, she does have dementia that is currently being investigated by neurology she has a MRI scheduled for Thursday with a hematology appointment on Thursday Vitals/I&O/Wt Last Vital Signs Temp 99.3 F 03/22/23 11:52 Pulse 67 03/22/23 11:52 Resp 21 H 03/22/23 11:52 BP 112/63 03/22/23 11:52 Pulse Ox 95 03/22/23 11:52 O2 Del Method Room Air 03/22/23 11:52 O2 Flow Rate 2 03/22/23 08:45 03/21/23 03/22/23 03/22/23 22:59 06:59 14:59 Intake Total 300 / 840 899.5 / 1739.5 455.533 / 455.533 Output Total 3600 / 5460 Balance 300 / -1020 -2700.5 / -3720.5 455.533 / 455.533 Weight last 48 hrs Weight 44.86 kg Weight 44.18 kg Physical Exam 2 Const: COMMON NORMALS: no acute distress Resp: COMMON NORMALS: normal respiratory effort, No retractions, No use of accessory muscles and clear to auscultation bilaterally AUSCULTATION: clear to auscultation bilaterally Cardio: COMMON NORMALS: regular rate, regular rhythm, S1 normal heart sound present and S2 normal heart sound present RATE: regular rate RHYTHM: r egular rhythm HEART SOUNDS: S1 normal heart sound present and S2 normal heart sound present GI: COMMON NORMALS: Normal to inspection, nondistended, normoactive bowel sounds present and non-tender Extremity: COMMON NORMALS: no pedal edema Psych: COMMON NORMALS: mental status grossly normal Urinary Catheter Management: La: Cath Placed During This Visit: yes Reason for Continuing Indwelling Catheter: Accurate Measurement of Urinary Output in Critically Ill Patients Urinary Catheter Date of Insertion: 03/19/23 Urinary Catheter Time of Insertion: 16:35 Data 03/22/23 01:21 03/22/23 01:21 Micro: Microbiology 03/19/23 16:31 Urine Culture - Final Urine,Clean Catch Enterococcus faecalis A&P Assessment and plan (1) Acute hypoxemic respiratory failure: (2) Pneumonia: (3) Diastolic CHF, acute: (4) Grade II diastolic dysfunction: (5) Hx of hernia repair: (6) Congestive heart failure: (7) Atrial fibrillation with rapid ventricular response: (8) Acute encephalopathy: (9) NSTEMI (non-ST elevated myocardial infarction): Plan Acute hypoxic respiratory failure, ? Secondary to diastolic CHF exacerbation, pulmonary edema, fluid overload, lower extreme edema, ? With left lower lobe pneumonia ? Plan, ? CT angiogram of the chest, recently immobile after hernia surgery, D-dimer elevated, negative for pulmonary emboli ? Respiratory therapy eval, ? Currently on room air, -6.6 L ? Lasix 40 mg p.o. daily ? Full code, ? eliquis for DVT prophylaxis, Diastolic CHF exacerbation, ? Monitor creatinine, monitor potassium, treat urine output, ? Cardiac echo, NSTEMI, Type I versus type II, ? Social EKGs, short troponins, telemetry monitoring, ? Continue eliquis ? Aspirin, statin, A left lower lobe pneumonia, -blood cultures -sputum cultures -has received Levaquin emergency room ? cefepime Enterococcus UTI, ? vancomycin A-fib with RVR, ? He is maximized on Cardizem heart rate still in the 130s, ? P.o. amiodarone ? eliquis Acute encephalopathy,, baseline ? Secondary to pneumonia, ? CT of the head, within normal limits ? Neurochecks, aspiration precautions, night stroke scale, Recent history of femoral hernia repair, currently abdomen is distended, decreased bowel sounds, she has diffuse tenderness, ? CT scan abdomen pelvis within normal limits Bilateral extremity edema, venous ultrasound for negative DVT Full code, eliquis for DVT prophylaxis Attestations 2 Medical Necessity Statement*: Patient requires hospitalization for A-fib with RVR, left lower lobe pneumonia, UTI, fluid overload Diagnoses Acute hypoxemic respiratory failure J96.01 Pneumonia J18.9 Diastolic CHF, acute I50.31 Grade II diastolic dysfunction I51.89 Hx of hernia repair Z98.890; Z87.19 Congestive heart failure I50.9 Atrial fibrillation with rapid ventricular response I48.91 Acute encephalopathy G93.40 NSTEMI (non-ST elevated myocardial infarction) I21.4
[2023-03-22] MEDS: pantoprazole 40 mg SDV IVP (18:09)
[2023-03-23] VITALS (12 sets, daily range): BP systolic 103–137; BP diastolic 62–79; PULSE 57–71; RESP 17–24; TEMP 36.8–38.9; O2SAT 90–98
[2023-03-23] MEDS: apixaban 5 mg Tablet PO ×3 (00:15→23:47)
[2023-03-23] MEDS: vancomycin 500 MG in sodium chloride 0.9% (plus) 100 ML 200 MG IV ×2 (02:48→21:01)
[2023-03-23 05:54] LABS: Basophils % 0.1 %; Eosinophils % 0.3 %; Hematocrit 32.5 % (36-47); Lymphocytes # 0.3 10^3/uL (0.8-4.8); Lymphocytes % 4.6 %; Mean Corpuscular HGB Conc 31.4 g/dL (30-55); Mean Corpuscular Hemoglobin 28.9 pg (27-33); Mean Corpuscular Volume 92.1 fl (85-98); Mean Platelet Volume 12.4 fL (7.4-10.4); Monocytes # 0.7 10^3/uL (0.2-0.9); Neutrophils # 6.37 10^3/uL (1.8-7.7); Neutrophils % 85.5 %; Nucleated Red Blood Cells % 0 %; Platelet Count 205 10^3/cmm (157-399); Red Blood Count 3.53 10^6/uL (3.85-5.65); Red Cell Distribution Width 14.5 % (12.1-15.1); White Blood Count 7.45 10^3/uL (3.29-11.43)
[2023-03-23 06:11] LABS: Alanine Aminotransferase 21 U/L (0-33); Albumin Level 3.1 g/dL (3.5-5.2); Alkaline Phosphatase 93 U/L (35-105); Aspartate Amino Transferase 18 U/L (0-32); Blood Urea Nitrogen 14 mg/dL (8-23); Calcium 8.7 mg/dL (8.5-10.5); Carbon Dioxide 27 mmol/L (22-29); Chloride 95 mmol/L (98-107); Creatinine Clr Calc Pharmacy 42.8391; Globulin 3.2 g/dL (1.3-4.6); Glucose 106 mg/dL (65-115); Osmolality Calculated 279 mOsm/kg (285-295); Sodium 134 mmol/L (136-145); Total Bilirubin 0.6 mg/dL (0.15-1.2); Total Protein 6.3 g/dL (6.6-8.7)
[2023-03-23 06:21] LABS: Anion Gap 15.4 (5-19); Potassium 3.4 mmol/L (3.5-5.1)
[2023-03-23] MEDS: cefepime 1,000 MG in sodium chloride 0.9% (plus) 50 ML 100 MG IV ×2 (08:27→19:42)
[2023-03-23] MEDS: potassium chloride ER 20 mEq Tablet 40 MEQ PO (08:35)
[2023-03-23] MEDS: FUROsemide 40 mg Tablet PO (08:35)
[2023-03-23] MEDS: amiodarone 200 mg Tablet 400 MG PO ×2 (08:36→17:38)
[2023-03-23] MEDS: polyethylene glycol 3350 Pkt 17 gm PO ×2 (09:41→23:47)
--- NOTE | 2023-03-23 11:27 | PC.SOCIAL ---
IMM Updated Updated pt's family on IMM. No questions voiced. Provided pt a copy. Initialed, dated, & timed copy in chart.
--- NOTE | 2023-03-23 13:02 | XRR_ITS ---
PROCEDURE INFORMATION: Exam: XR Chest Exam date and time: 03/23/2023 2:08 PM Age: 77 years old Clinical indication: Shortness of breath; Additional info: SOB TECHNIQUE: Imaging protocol: Radiologic exam of the chest. Views: 1 view. COMPARISON: 1. CT angio chest w abd pel w con 03/19/2023 7:16 PM 2. CR XR chest 1V portable [id number] 03/19/2023 12:15 PM 3. CR XR chest 1V portable [id number] 01/23/2023 7:19 AM FINDINGS: Lungs: Hazy increased reticular opacification of the lower lung zones. Pleural spaces: Blunting of the costophrenic sulci. No pneumothorax. Heart/Mediastinum: Cardiomegaly. Vasculature: Aortic atherosclerotic calcification. Bones/joints: Superior compression deformity of a mid to lower thoracic vertebral body redemonstrated. XR/XR chest 1V portable [id number] IMPRESSION: Small bilateral pleural effusions and suggested pulmonary edema may be cardiogenic in etiology. Developing pneumonia difficult to entirely exclude.
--- NOTE | 2023-03-23 13:55 | P.PN_ITS ---
Subjective 2 Subjective: Patient was seen this morning, she is alert to person, not to place, not to time she had a low-grade temperature overnight we will need to monitor, repeat chest x-ray, UA, blood cultures Vitals/I&O/Wt Last Vital Signs Temp 98.9 F 03/23/23 10:30 Pulse 64 03/23/23 08:58 Resp 20 H 03/23/23 08:58 BP 104/62 03/23/23 08:58 Pulse Ox 92 03/23/23 08:58 O2 Del Method Room Air 03/23/23 08:58 O2 Flow Rate 2 03/22/23 22:55 03/22/23 03/23/23 03/23/23 22:59 06:59 14:59 Intake Total 250 / 855.533 100 / 955.533 210 / 210 Output Total 2500 / 2500 200 / 2700 Balance -2250 / -1644.467 -100 / -1744.467 210 / 210 Weight last 48 hrs Weight 45.359 kg Weight 44.86 kg Physical Exam 2 Const: COMMON NORMALS: no acute distress and patient oriented x3 Resp: COMMON NORMALS: normal respiratory effort, No retractions, No use of accessory muscles and clear to auscultation bilaterally AUSCULTATION: clear to auscultation bilaterally Cardio: COMMON NORMALS: regular rate, regular rhythm, S1 normal heart sound present and S2 normal heart sound present RATE: regular rate RHYTHM: r egular rhythm HEART SOUNDS: S1 normal heart sound present and S2 normal heart sound present GI: COMMON NORMALS: Normal to inspection, nondistended, normoactive bowel sounds present, Soft to palpation and non-tender PALPATION: Yes Soft to palpation Extremity: COMMON NORMALS: no pedal edema Neuro: COMMON NORMALS: patient oriented x3 Psych: COMMON NORMALS: mental status grossly normal Urinary Catheter Management: La: Cath Placed During This Visit: yes Reason for Continuing Indwelling Catheter: Accurate Measurement of Urinary Output in Critically Ill Patients Urinary Catheter Date of Insertion: 03/19/23 Urinary Catheter Time of Insertion: 16:35 Data 03/23/23 05:08 03/23/23 05:08 A&P Assessment and plan (1) Acute hypoxemic respiratory failure: (2) Pneumonia: (3) Diastolic CHF, acute: (4) Grade II diastolic dysfunction: (5) Hx of hernia repair: (6) Congestive heart failure: (7) Atrial fibrillation with rapid ventricular response: (8) Acute encephalopathy: (9) NSTEMI (non-ST elevated myocardial infarction): Plan Acute hypoxic respiratory failure, ? Secondary to diastolic CHF exacerbation, pulmonary edema, fluid overload, lower extreme edema, ? With left lower lobe pneumonia ? Plan, ? CT angiogram of the chest, recently immobile after hernia surgery, D-dimer elevated, negative for pulmonary emboli ? Respiratory therapy eval, ? Currently on room air, -6.6 L ? Lasix 40 mg p.o. daily ? Full code, ? eliquis for DVT prophylaxis, Diastolic CHF exacerbation, ? Monitor creatinine, monitor potassium, treat urine output, ? Cardiac echo, NSTEMI, Type I versus type II, ? Social EKGs, short troponins, telemetry monitoring, ? Continue eliquis ? Aspirin, statin, A left lower lobe pneumonia, -blood cultures -sputum cultures -has received Levaquin emergency room ? cefepime Enterococcus UTI, ? vancomycin A-fib with RVR, ? He is maximized on Cardizem heart rate still in the 130s, ? P.o. amiodarone ? eliquis Acute encephalopathy,, baseline ? Secondary to pneumonia, ? CT of the head, within normal limits ? Neurochecks, aspiration precautions, night stroke scale, Recent history of femoral hernia repair, currently abdomen is distended, decreased bowel sounds, she has diffuse tenderness, ? CT scan abdomen pelvis within normal limits Bilateral extremity edema, venous ultrasound for negative DVT Full code, eliquis for DVT prophylaxis Low-grade fever, repeat urinalysis, chest x-ray, blood cultures, inflammatory markers Attestations 2 Medical Necessity Statement*: Patient requires hospitalization for respiratory failure, NSTEMI, pneumonia, Enterococcus UTI, A-fib Diagnoses Acute hypoxemic respiratory failure J96.01 Pneumonia J18.9 Diastolic CHF, acute I50.31 Grade II diastolic dysfunction I51.89 Hx of hernia repair Z98.890; Z87.19 Congestive heart failure I50.9 Atrial fibrillation with rapid ventricular response I48.91 Acute encephalopathy G93.40 NSTEMI (non-ST elevated myocardial infarction) I21.4
[2023-03-23] MEDS: lactulose oral liq 20 gm/30 mL UDC PO (14:20)
[2023-03-23 15:21] LABS: Add Urine Microscopic? NO; Charge for UA Resulting for Rev
[2023-03-23 15:50] LABS: Bilirubin Urine Neg (Negative); Blood Urine Neg (Negative); Glucose Urine UA Norm (Normal); Ketones Urine Negative (Negative); Nitrate Urine Negative (Negative); Protein Urine Neg (Negative); Urine Appearance Clear (CLEAR); Urine Color Yellow (Yellow); pH Urine 6 (5-7)
[2023-03-23 15:51] LABS: Leukocyte Esterase Urine Negative (Negative); Urobilinogen Urine Norm (Negative)
[2023-03-23] MEDS: pantoprazole 40 mg SDV IVP (17:39)
[2023-03-23] MEDS: acetaminophen 325 mg Tablet 650 MG PO (19:42)
--- NOTE | 2023-03-23 22:33 | PC.NURSE ---
Called lab to check status of respiratory panel as results are still pending. Was informed that respiratory panel can not be run tonight as they are awaiting more cartridges possible will be delivered tomorrow. So respiratory panel results will not be available tonight possibly tomorrow.
[2023-03-24] VITALS (13 sets, daily range): BP systolic 91–117; BP diastolic 56–91; PULSE 49–76; RESP 16–20; TEMP 36.8–37.7; O2SAT 94–99
--- NOTE | 2023-03-24 00:03 | PC.NURSE ---
Messaged regarding patient with temp 102.1 tonight and delay in receiving respiratory panel results. said put patient on precautions for now.
--- NOTE | 2023-03-24 00:35 | PC.NURSE ---
Respiratory talked with nurse regarding patient snoring and difficult to rouse, asking if ABGs would be appropriate. Spoke with regarding patients lethargy and difficulty rousing, said ok to check ABGs.
[2023-03-24 00:40] LABS: ABG PCO2 49.2 mmHg (35-45); ABG PH Result 7.43 (7.35-7.45); Arterial Blood Gas Hematocrit 31.1 % (37-47); Base Excess ABG 7.6 mmol/L (-2.0-2.0); Blood Gas Sample Site Brachial, right; Blood Gas Sample Type Arterial; Carboxyhemoglobin 1.9 %THgb (0.4-20.1); HCO3 ABG 32.9 mmol/L (22-26); Ionized Calcium Level - ABG 1.2 mmol/L (1.1-1.4); Methemoglobin 0.8 % (0.4-1.5); Oxygen Device NC; Oxygen Saturation ABG 99.7; Potassium Level - ABG 3.8 mmol/L (3.5-5.0); Total Hemoglobin 10.1 g/dL (12-16)
[2023-03-24 05:39] LABS: Basophils % 0.2 %; Eosinophils # 0.1 10^3/uL (0.0-0.8); Eosinophils % 0.6 %; Hematocrit 33.3 % (36-47); Lymphocytes # 0.6 10^3/uL (0.8-4.8); Lymphocytes % 7.6 %; Mean Corpuscular HGB Conc 30.6 g/dL (30-55); Mean Corpuscular Hemoglobin 28.3 pg (27-33); Mean Corpuscular Volume 92.2 fl (85-98); Monocytes # 0.8 10^3/uL (0.2-0.9); Monocytes % 9.9 %; Neutrophils # 6.65 10^3/uL (1.8-7.7); Neutrophils % 81.1 %; Nucleated Red Blood Cells % 0 %; Platelet Count 237 10^3/cmm (157-399); Red Blood Count 3.61 10^6/uL (3.85-5.65); Red Cell Distribution Width 14.5 % (12.1-15.1)
[2023-03-24 06:05] LABS: Alanine Aminotransferase 16 U/L (0-33); Albumin Level 3.1 g/dL (3.5-5.2); Alkaline Phosphatase 94 U/L (35-105); Anion Gap 15.1 (5-19); Aspartate Amino Transferase 15 U/L (0-32); Blood Urea Nitrogen 18 mg/dL (8-23); Calcium 9.1 mg/dL (8.5-10.5); Carbon Dioxide 29 mmol/L (22-29); Chloride 96 mmol/L (98-107); Creatinine Clr Calc Pharmacy 38.6835; Globulin 3.4 g/dL (1.3-4.6); Glucose 95 mg/dL (65-115); Osmolality Calculated 284 mOsm/kg (285-295); Potassium 4.1 mmol/L (3.5-5.1); Sodium 136 mmol/L (136-145); Total Bilirubin 0.5 mg/dL (0.15-1.2); Total Protein 6.5 g/dL (6.6-8.7)
--- NOTE | 2023-03-24 08:28 | CT_ITS ---
WS: [id number] CT chest wo con [id number] HISTORY: fever, hypoxia TECHNIQUE: Axial imaging performed through the thorax. Coronal and sagittal reformats are submitted. All CT scans at [facility] use at least one of these dose optimization techniques: automated exposure control; mA and/or kV adjustment per patient size (includes targeted exams where dose is mat ched to clinical indication); or iterative reconstruction. CONTRAST: None DLP: 221.43 mGy.cm COMPARISON: 03/19/2023 Lungs and central airway: Slight improved aeration noted bilaterally with less congestion. There has been a slight increase in the subsegmental atelectasis at the lung bases with very small layering ple ural effusions. Pleura: Small pleural effusions. Heart and pericardium: Moderate cardiomegaly with a small pericardial effusion. The pericardial effus ion has slightly increased since 03/19/2023. Mediastinum and rodolfo: No adenopathy identified on this unenhanced exam. Vessels: Moderate atherosclerosis and ectatic aorta. Ectatic dilatation with the ascending aorta buffy uring 4.0 cm. Pulmonary artery is also mildly prominent. Chest wall and lower neck: No soft tissue masses. Upper abdomen: No abnormality identified. Osseous structures: Mild increase in kyphosis. T8 20% compression fracture. Age indeterminate but new since 11/21/2021. Fracture was present on the study of 03/19/2023 with questionable progression in the loss of height. There is an additional L1 anterior compression fracture which is stable since 11/22/19 22. IMPRESSION: 1. Subsegmental bibasilar areas of atelectasis and very small layering pleural effusions. Overall the remaining lungs are slightly better aerated with less pulmonary congestion. 2. Moderate cardiomegaly with a small but increasing in size pericardial effusion. 3. Age-indeterminate T8 20% compression fracture. Fracture is new since 11/21/2021 and may have slightl y progressed since 03/19/2023. 4. Remote mild anterior compression fracture of L1.
[2023-03-24 09:45] LABS: C Reactive Protein 161.7 mg/L (0.0-4.9)
[2023-03-24 09:52] LABS: Procalcitonin 0.17 ng/mL (0-0.5)
[2023-03-24] MEDS: FUROsemide 40 mg Tablet PO (09:58)
[2023-03-24] MEDS: amiodarone 200 mg Tablet 400 MG PO ×2 (09:58→17:43)
[2023-03-24] MEDS: cefepime 1,000 MG in sodium chloride 0.9% (plus) 50 ML 100 MG IV ×2 (09:59→20:41)
[2023-03-24] MEDS: polyethylene glycol 3350 Pkt 17 gm PO ×2 (10:00→20:41)
[2023-03-24 15:25] LABS: Vancomycin Trough 6.2 ug/mL (10-15)
--- NOTE | 2023-03-24 15:57 | P.PN_ITS ---
Subjective 2 Subjective: Patient was seen this morning, daughter at bedside, she had a temperature 102.1 yesterday afternoon, has had 1 low-grade temperature since then, she is about the same this morning alert to person, not place, not to time, has no complaints of a cough, no abdominal pain, no nausea, no vomiting, lungs clear to auscultation bilaterally, abdomen soft, nonrigid, nontender her CAT scan did show gallbladder sludge, but I palpated right upper quadrant no significant tenderness, no significant LFT abnormalities, I have repeated a CT of her chest, repeat blood work Pro-Mani CRP, repeat blood cultures, urinalysis, she is on vancomycin and cefepime, spoke to daughter at bedside we will monitor for another 24 hours make sure she is afebrile before she goes to the skilled nursing, repeat respiratory viral panel, she is in agreement, currently heart rates are well controlled, she is diuresed well, nonpitting edema on examination Vitals/I&O/Wt Last Vital Signs Temp 98.5 F 03/24/23 12:00 Pulse 66 03/24/23 12:00 Resp 18 03/24/23 12:00 BP 100/58 03/24/23 12:00 Pulse Ox 94 03/24/23 12:00 O2 Del Method Room Air 03/24/23 12:00 O2 Flow Rate 2 03/24/23 08:00 03/24/23 03/24/23 03/24/23 06:59 14:59 22:59 Intake Total 480 / 1420 360 / 360 Output Total 200 / 1850 Balance 280 / -430 360 / 360 Weight last 48 hrs Weight 40.959 kg Weight 45.359 kg Physical Exam 2 Const: COMMON NORMALS: no acute distress ORIENTATION/CONSCIOUSNESS: Yes awake and Yes oriented to person; not oriented to place and not oriented to time Resp: COMMON NORMALS: normal respiratory effort, No retractions, No use of accessory muscles and clear to auscultation bilaterally AUSCULTATION: clear to auscultation bilaterally Cardio: COMMON NORMALS: regular rate, regular rhythm, S1 normal heart sound present and S2 normal heart sound present RATE: regular rate RHYTHM: r egular rhythm HEART SOUNDS: S1 normal heart sound present and S2 normal heart sound present GI: COMMON NORMALS: Normal to inspection, nondistended, normoactive bowel sounds present and non-tender Extremity: COMMON NORMALS: no pedal edema Neuro: SENSORIUM/ORIENTATION: Yes oriented to person, No oriented to place and No oriented to time Psych: COMMON NORMALS: mental status grossly normal Urinary Catheter Management: La: Cath Placed During This Visit: yes Reason for Continuing Indwelling Catheter: Acute Urinary Retention or Obstruction Urinary Catheter Date of Insertion: 03/19/23 Urinary Catheter Time of Insertion: 16:35 Data 03/24/23 04:38 03/24/23 04:38 Micro: Microbiology 03/19/23 14:30 Blood Culture - Final Blood NO GROWTH AFTER 5 DAYS 03/19/23 14:13 Blood Culture - Final Blood NO GROWTH AFTER 5 DAYS 03/23/23 14:08 Blood Culture - Preliminary Blood NEGATIVE TO DATE 03/23/23 14:07 Blood Culture - Preliminary Blood NEGATIVE TO DATE A&P Assessment and plan (1) Acute hypoxemic respiratory failure: (2) Pneumonia: (3) Diastolic CHF, acute: (4) Grade II diastolic dysfunction: (5) Hx of hernia repair: (6) Congestive heart failure: (7) Atrial fibrillation with rapid ventricular response: (8) Acute encephalopathy: (9) NSTEMI (non-ST elevated myocardial infarction): Plan A&P Assessment and plan (1) Acute hypoxemic respiratory failure: (2) Pneumonia: (3) Diastolic CHF, acute: (4) Grade II diastolic dysfunction: (5) Hx of hernia repair: (6) Congestive heart failure: (7) Atrial fibrillation with rapid ventricular response: (8) Acute encephalopathy: (9) NSTEMI (non-ST elevated myocardial infarction): Plan Acute hypoxic respiratory failure, ? Secondary to diastolic CHF exacerbation, pulmonary edema, fluid overload, lower extreme edema, ? With left lower lobe pneumonia ? Plan, ? CT angiogram of the chest, recently immobile after hernia surgery, D-dimer elevated, negative for pulmonary emboli ? Respiratory therapy eval, ? Currently on room air, -6.6 L ? Lasix 40 mg p.o. daily ? Full code, ? eliquis for DVT prophylaxis, Diastolic CHF exacerbation, ? Monitor creatinine, monitor potassium, treat urine output, ? Cardiac echo, NSTEMI, Type I versus type II, ? Social EKGs, short troponins, telemetry monitoring, ? Continue eliquis ? Aspirin, statin, A left lower lobe pneumonia, -blood cultures -sputum cultures -has received Levaquin emergency room ? cefepime Enterococcus UTI, ? vancomycin A-fib with RVR, ? He is maximized on Cardizem heart rate still in the 130s, ? P.o. amiodarone ? eliquis Acute encephalopathy,, baseline ? Secondary to pneumonia, ? CT of the head, within normal limits ? Neurochecks, aspiration precautions, night stroke scale, Recent history of femoral hernia repair, currently abdomen is distended, decreased bowel sounds, she has diffuse tenderness, ? CT scan abdomen pelvis within normal limits Bilateral extremity edema, venous ultrasound for negative DVT Full code, eliquis for DVT prophylaxis Low-grade fever, repeat urinalysis, chest x-ray, blood cultures, inflammatory markers Patient was seen this morning, daughter at bedside, she had a temperature 102.1 yesterday afternoon, has had 1 low-grade temperature since then, she is about the same this morning alert to person, not place, not to time, has no complaints of a cough, no abdominal pain, no nausea, no vomiting, lungs clear to auscultation bilaterally, abdomen soft, nonrigid, nontender her CAT scan did show gallbladder sludge, but I palpated right upper quadrant no significant tenderness, no significant LFT abnormalities, I have repeated a CT of her chest, repeat blood work Pro-Mani CRP, repeat blood cultures, urinalysis, she is on vancomycin and cefepime, spoke to daughter at bedside we will monitor for another 24 hours make sure she is afebrile before she goes to the skilled nursing, repeat respiratory viral panel, she is in agreement, currently heart rates are well controlled, she is diuresed well, nonpitting edema on examination Attestations 2 Medical Necessity Statement*: Patient requires hospitalization for pneumonia, A-fib, fluid overload persistent fevers Diagnoses Acute hypoxemic respiratory failure J96.01 Pneumonia J18.9 Diastolic CHF, acute I50.31 Grade II diastolic dysfunction I51.89 Hx of hernia repair Z98.890; Z87.19 Congestive heart failure I50.9 Atrial fibrillation with rapid ventricular response I48.91 Acute encephalopathy G93.40 NSTEMI (non-ST elevated myocardial infarction) I21.4
[2023-03-24 16:21] LABS: Adenovirus Not Detected (NOT DETECT); Chlamydia Pneumoniae Not Detected (NOT DETECT); Coronavirus 229E,HKU1,NL63,OC4 Not Detected (NOT DETECT); Human Metapneumovirus Not Detected (NOT DETECT); Human Rhinovirus/Enterovirus Not Detected (NOT DETECT); Influenza A Not Detected (NOT DETECT); Influenza A H1 Not Detected (NOT DETECT); Influenza A H1-2009 Not Detected (NOT DETECT); Influenza A H3 Not Detected (NOT DETECT); Influenza B Not Detected (NOT DETECT); Mycoplasma Pneumoniae Not Detected (NOT DETECT); Parainfluenza Virus Type 1 Not Detected (NOT DETECT); Parainfluenza Virus Type 2 Not Detected (NOT DETECT); Parainfluenza Virus Type 3 Not Detected (NOT DETECT); Parainfluenza Virus Type 4 Not Detected (NOT DETECT); Respiratory Syncytial Virus A Not Detected (NOT DETECT); Respiratory Syncytial Virus B Not Detected (NOT DETECT); SARS-COV-2 Not Detected (NOT DETECT)
[2023-03-24] MEDS: pantoprazole 40 mg SDV IVP (17:43)
[2023-03-24] MEDS: vancomycin 750 MG in sodium chloride 0.9% 250 ML 250 MG IV (17:43)
--- NOTE | 2023-03-24 18:56 | US_ITS ---
WS: [id number] RIGHT UPPER QUADRANT ULTRASOUND HISTORY: fevers COMPARISON: None available. Liver: 14.1 cm in length. Normal size liver and echogenicity. No bile duct dilatation or mass. Portal Vein: Normal hepatopetal flow with monophasic waveform. Gallbladder: Normally distended gallbladder. There is sludge layering in the gallbladder. No stones a nd no wall thickening. No pericholecystic fluid. CBD: 0.4 cm Pancreas: Normal size and echogenicity. Right kidney: 10.8 cm in length. Normal size and echogenicity. No hydronephrosis or mass. Aorta and IVC: Unremarkable abdominal aorta and IVC. No ascites. Small RIGHT pleural effusion. IMPRESSION: 1. Small amount of gallbladder sludge. No stones or wall thickening. Sludge may be due to a prolonged fasting state. 2. Normal common bile duct. No other abnormalities RIGHT upper quadrant. 3. Very small RIGHT pleural effusion.
[2023-03-24] MEDS: bisacodyl 10 mg Supp PR (21:50)
--- NOTE | 2023-03-24 22:19 | PC.NURSE ---
Spoke with regarding patient with no BM since admission and no results from Miralax or dose of lactulose. ordered PRN suppository and fleets enema. When nurse when to admister Suppository and patient was turned on her side she had a gush of foul smelling drainage, which appeared to be vaginal, poured out. It was green/yellow in color. Fluid was collected in a specimen cup and contacted who gave orders to send fluid for testing as patient has been having fevers.
[2023-03-24] MEDS: apixaban 5 mg Tablet PO (23:27)
[2023-03-25] VITALS (12 sets, daily range): BP systolic 96–122; BP diastolic 58–69; PULSE 59–68; RESP 18–25; TEMP 36.6–38.6; O2SAT 94–97
[2023-03-25 03:30] LABS: Basophils % 0.2 %; Eosinophils % 0.3 %; Hematocrit 34.5 % (36-47); Lymphocytes # 0.4 10^3/uL (0.8-4.8); Lymphocytes % 3.8 %; Mean Corpuscular HGB Conc 31.3 g/dL (30-55); Mean Corpuscular Hemoglobin 28.1 pg (27-33); Mean Corpuscular Volume 89.6 fl (85-98); Mean Platelet Volume 11.4 fL (7.4-10.4); Monocytes # 0.7 10^3/uL (0.2-0.9); Monocytes % 6.3 %; Neutrophils # 10.44 10^3/uL (1.8-7.7); Nucleated Red Blood Cells % 0 %; Platelet Count 362 10^3/cmm (157-399); Red Blood Count 3.85 10^6/uL (3.85-5.65); Red Cell Distribution Width 14.4 % (12.1-15.1); White Blood Count 11.73 10^3/uL (3.29-11.43)
[2023-03-25] MEDS: acetaminophen 325 mg Tablet 650 MG PO (03:30)
[2023-03-25] MEDS: Fleet Enema 133 mL Enema PR (03:50)
[2023-03-25 03:51] LABS: Lactate (Lactic Acid level) 1.1 mmol/L (0.5-2.2)
[2023-03-25 03:54] LABS: Alanine Aminotransferase 16 U/L (0-33); Albumin Level 3.2 g/dL (3.5-5.2); Alkaline Phosphatase 101 U/L (35-105); Anion Gap 15.1 (5-19); Aspartate Amino Transferase 14 U/L (0-32); Blood Urea Nitrogen 24 mg/dL (8-23); C Reactive Protein 147.1 mg/L (0.0-4.9); Calcium 9.3 mg/dL (8.5-10.5); Carbon Dioxide 30 mmol/L (22-29); Chloride 95 mmol/L (98-107); Creatinine Clr Calc Pharmacy 38.6835; Globulin 3.4 g/dL (1.3-4.6); Glucose 131 mg/dL (65-115); Magnesium 2.2 mg/dL (1.7-2.3); Osmolality Calculated 288 mOsm/kg (285-295); Phosphorus 2.4 mg/dL (2.5-4.5); Potassium 4.1 mmol/L (3.5-5.1); Sodium 136 mmol/L (136-145); Total Bilirubin 0.4 mg/dL (0.15-1.2); Total Protein 6.6 g/dL (6.6-8.7)
[2023-03-25 03:59] LABS: Procalcitonin 0.14 ng/mL (0-0.5)
--- NOTE | 2023-03-25 09:12 | PC.SOCIAL ---
IMM Updated Updated pt's family on IMM. No questions voiced. Provided pt a copy. Initialed, dated, & timed copy in chart.
[2023-03-25 10:24] LABS: Add Urine Microscopic? YES; Bilirubin Urine Neg (Negative); Blood Urine Neg (Negative); Glucose Urine UA Norm (Normal); Ketones Urine Negative (Negative); Leukocyte Esterase Urine Negative (Negative); Nitrate Urine Negative (Negative); Protein Urine Trace (Negative); Urine Appearance Clear (CLEAR); Urine Color Dark Yellow (Yellow); Urobilinogen Urine 4 mg/dL (Negative); pH Urine 6 (5-7)
[2023-03-25 10:28] LABS: Add Urine Culture? No; Bacteria Urine TRACE /hpf; Mucus Urine 3+ /hpf; Oval Fat Bodies Urine 1+ /hpf; RBC Urine 0-4 /hpf (0-2); Transitional Epi Cells Urine 0-4 /hpf; WBC Urine 0-4 /hpf (0-5)
[2023-03-25] MEDS: cefepime 1,000 MG in sodium chloride 0.9% (plus) 50 ML 100 MG IV ×2 (10:42→20:30)
[2023-03-25] MEDS: apixaban 5 mg Tablet PO (10:42)
[2023-03-25] MEDS: amiodarone 200 mg Tablet 400 MG PO ×2 (10:42→17:42)
[2023-03-25] MEDS: FUROsemide 40 mg Tablet PO (10:42)
[2023-03-25] MEDS: vancomycin 750 MG in sodium chloride 0.9% 250 ML 200 MG IV (12:46)
--- NOTE | 2023-03-25 13:40 | P.PN_ITS ---
Subjective 2 Subjective: Patient was seen this morning, she is alert to person, not to place, not to time she does follow commands, she had persistent fevers throughout the night, I did a dedicated skin exam, she does have stage I sacral ulcer, although minimal, order gallbladder ultrasound repeat blood cultures, urinalysis, respiratory viral panel, GI panel, she has no complaints, remains euvolemic, normotensive, currently in sinus rhythm Vitals/I&O/Wt Last Vital Signs Temp 98.7 F 03/25/23 12:00 Pulse 62 03/25/23 12:00 Resp 18 03/25/23 12:00 BP 114/63 03/25/23 12:00 Pulse Ox 94 03/25/23 11:48 O2 Del Method Room Air 03/25/23 11:48 O2 Flow Rate 2 03/24/23 08:00 03/24/23 03/25/23 03/25/23 22:59 06:59 14:59 Intake Total 950 / 1310 200 / 200 Output Total 950 / 950 400 / 1350 Balance 0 / 360 -400 / -40 200 / 200 Weight last 48 hrs Weight 42.638 kg Weight 40.959 kg Physical Exam 2 Const: COMMON NORMALS: no acute distress ORIENTATION/CONSCIOUSNESS: Yes awake and Yes oriented to person; not oriented to place and not oriented to time Resp: COMMON NORMALS: normal respiratory effort, No retractions, No use of accessory muscles and clear to auscultation bilaterally AUSCULTATION: clear to auscultation bilaterally Cardio: COMMON NORMALS: regular rate, regular rhythm, S1 normal heart sound present and S2 normal heart sound present RATE: regular rate RHYTHM: r egular rhythm HEART SOUNDS: S1 normal heart sound present and S2 normal heart sound present GI: COMMON NORMALS: Normal to inspection, nondistended, normoactive bowel sounds present and non-tender Extremity: COMMON NORMALS: no pedal edema Neuro: SENSORIUM/ORIENTATION: Yes oriented to person, No oriented to place and No oriented to time Urinary Catheter Management: La: Cath Placed During This Visit: yes Reason for Continuing Indwelling Catheter: Acute Urinary Retention or Obstruction Urinary Catheter Date of Insertion: 03/19/23 Urinary Catheter Time of Insertion: 16:35 Data 03/25/23 02:59 03/25/23 02:59 Micro: Microbiology 03/25/23 10:13 Blood Culture - Preliminary Blood SPECIMEN COLLECTED 03/25/23 10:13 Blood Culture - Preliminary Blood SPECIMEN COLLECTED 03/24/23 22:00 Gram Stain - Final Ankle - Vaginal 03/24/23 22:00 BARB Preparation - Final Other Source 03/25/23 05:02 Occult Blood (FIT) - Final Stool - Stool Aspirate 03/19/23 14:30 Blood Culture - Final Blood NO GROWTH AFTER 5 DAYS 03/19/23 14:13 Blood Culture - Final Blood NO GROWTH AFTER 5 DAYS 03/23/23 14:08 Blood Culture - Preliminary Blood NEGATIVE TO DATE 03/23/23 14:07 Blood Culture - Preliminary Blood NEGATIVE TO DATE A&P Assessment and plan (1) Acute hypoxemic respiratory failure: (2) Pneumonia: (3) Diastolic CHF, acute: (4) Grade II diastolic dysfunction: (5) Hx of hernia repair: (6) Congestive heart failure: (7) Atrial fibrillation with rapid ventricular response: (8) Acute encephalopathy: (9) NSTEMI (non-ST elevated myocardial infarction): Plan A&P Assessment and plan (1) Acute hypoxemic respiratory failure: (2) Pneumonia: (3) Diastolic CHF, acute: (4) Grade II diastolic dysfunction: (5) Hx of hernia repair: (6) Congestive heart failure: (7) Atrial fibrillation with rapid ventricular response: (8) Acute encephalopathy: (9) NSTEMI (non-ST elevated myocardial infarction): Plan Acute hypoxic respiratory failure, ? Secondary to diastolic CHF exacerbation, pulmonary edema, fluid overload, lower extreme edema, ? With left lower lobe pneumonia ? Plan, ? CT angiogram of the chest, recently immobile after hernia surgery, D-dimer elevated, negative for pulmonary emboli ? Respiratory therapy eval, ? Currently on room air, -6.6 L ? Lasix 40 mg p.o. daily ? Full code, ? eliquis for DVT prophylaxis, Diastolic CHF exacerbation, ? Monitor creatinine, monitor potassium, treat urine output, ? Cardiac echo, NSTEMI, Type I versus type II, ? Social EKGs, short troponins, telemetry monitoring, ? Continue eliquis ? Aspirin, statin, A left lower lobe pneumonia, -blood cultures -sputum cultures -has received Levaquin emergency room ? cefepime Enterococcus UTI, ? vancomycin A-fib with RVR, ? He is maximized on Cardizem heart rate still in the 130s, ? P.o. amiodarone ? eliquis Acute encephalopathy,, baseline ? Secondary to pneumonia, ? CT of the head, within normal limits ? Neurochecks, aspiration precautions, night stroke scale, Recent history of femoral hernia repair, currently abdomen is distended, decreased bowel sounds, she has diffuse tenderness, ? CT scan abdomen pelvis within normal limits Bilateral extremity edema, venous ultrasound for negative DVT Full code, eliquis for DVT prophylaxis Low-grade fever, repeat urinalysis, chest x-ray, blood cultures, inflammatory markers Patient was seen this morning, she is alert to person, not to place, not to time she does follow commands, she had persistent fevers throughout the night, I did a dedicated skin exam, she does have stage I sacral ulcer, although minimal, order gallbladder ultrasound repeat blood cultures, urinalysis, respiratory viral panel, GI panel, she has no complaints, remains euvolemic, normotensive, currently in sinus rhythm Attestations 2 Medical Necessity Statement*: Patient requires hospitalization due to persistent fevers Diagnoses Acute hypoxemic respiratory failure J96.01 Pneumonia J18.9 Diastolic CHF, acute I50.31 Grade II diastolic dysfunction I51.89 Hx of hernia repair Z98.890; Z87.19 Congestive heart failure I50.9 Atrial fibrillation with rapid ventricular response I48.91 Acute encephalopathy G93.40 NSTEMI (non-ST elevated myocardial infarction) I21.4
[2023-03-25] MEDS: pantoprazole 40 mg SDV IVP (17:41)
[2023-03-25] MEDS: nystatin powder 30 gm Btl 1 APPLIC TOPICAL (21:49)
[2023-03-25] MEDS: polyethylene glycol 3350 Pkt 17 gm PO (21:50)
[2023-03-26] MEDS: apixaban 5 mg Tablet PO ×2 (00:32→12:00)
[2023-03-26 01:04] VITALS: BP 99/59; PULSE 54; RESP 23
[2023-03-26 04:13] LABS: Basophils % 0.1 %; Eosinophils # 0.1 10^3/uL (0.0-0.8); Eosinophils % 1.2 %; Hematocrit 32.2 % (36-47); Lymphocytes # 0.7 10^3/uL (0.8-4.8); Mean Corpuscular Hemoglobin 28.5 pg (27-33); Mean Corpuscular Volume 89.2 fl (85-98); Mean Platelet Volume 11.4 fL (7.4-10.4); Monocytes # 0.7 10^3/uL (0.2-0.9); Monocytes % 8.7 %; Neutrophils % 80.6 %; Nucleated Red Blood Cells % 0 %; Platelet Count 356 10^3/cmm (157-399); Red Blood Count 3.61 10^6/uL (3.85-5.65); Red Cell Distribution Width 14.6 % (12.1-15.1); White Blood Count 7.45 10^3/uL (3.29-11.43)
[2023-03-26 04:19] VITALS: BP 96/57; PULSE 49; RESP 21; TEMP 36.6
[2023-03-26 04:41] LABS: C Reactive Protein 140.9 mg/L (0.0-4.9); Magnesium 2.2 mg/dL (1.7-2.3); Phosphorus 2.5 mg/dL (2.5-4.5)
[2023-03-26 04:43] LABS: Alanine Aminotransferase 11 U/L (0-33); Albumin Level 3.2 g/dL (3.5-5.2); Alkaline Phosphatase 100 U/L (35-105); Anion Gap 13.8 (5-19); Aspartate Amino Transferase 10 U/L (0-32); Blood Urea Nitrogen 23 mg/dL (8-23); Calcium 9.2 mg/dL (8.5-10.5); Carbon Dioxide 30 mmol/L (22-29); Chloride 93 mmol/L (98-107); Globulin 3.2 g/dL (1.3-4.6); Glucose 106 mg/dL (65-115); Osmolality Calculated 280 mOsm/kg (285-295); Potassium 3.8 mmol/L (3.5-5.1); Sodium 133 mmol/L (136-145); Total Bilirubin 0.4 mg/dL (0.15-1.2); Total Protein 6.4 g/dL (6.6-8.7)
[2023-03-26 04:49] LABS: Procalcitonin 0.14 ng/mL (0-0.5)
[2023-03-26] MEDS: vancomycin 750 MG in sodium chloride 0.9% 250 ML 200 MG IV (05:59)
[2023-03-26 06:00] VITALS: PULSE 50; BMI 16.1
[2023-03-26 07:58] VITALS: BP 124/67; PULSE 58; RESP 16; TEMP 37.1; O2SAT 97
[2023-03-26 08:00] VITALS: PULSE 54; RESP 18; O2SAT 97
[2023-03-26] MEDS: FUROsemide 40 mg Tablet PO (08:39)
[2023-03-26] MEDS: amiodarone 200 mg Tablet 400 MG PO (08:39)
[2023-03-26] MEDS: cefepime 1,000 MG in sodium chloride 0.9% (plus) 50 ML 100 MG IV (08:40)
[2023-03-26] MEDS: polyethylene glycol 3350 Pkt 17 gm PO (10:23)
--- NOTE | 2023-03-26 11:09 | P.DS_ITS ---
Discharge Providers Date of Admission: 03/19/23 13:54 Date of Discharge: March 26, 2023 Attending Provider at Admission: Dann Navarro MD Attending Provider at Discharge: Dann Navarro MD Primary Care Provider: Ying Bonilla MD Diagnoses at Discharge Discharge Diagnosis (1) Acute hypoxemic respiratory failure: Status: Acute (2) Pneumonia: Status: Acute (3) Diastolic CHF, acute: Status: Acute (4) Grade II diastolic dysfunction: Status: Acute (5) Hx of hernia repair: Status: Acute Permanent problem details: Dr. Reyes 01/23/23 open left femoral hernia repair with mesh, diagnostiv laparascopy, laparotomy with small bowel resection and primary anastomosis (6) Congestive heart failure: Status: Acute (7) Atrial fibrillation with rapid ventricular response: Status: Inactive (8) Acute encephalopathy: Status: Acute (9) NSTEMI (non-ST elevated myocardial infarction): Status: Acute Reason for Visit Reason for Visit: weakness and edema Hospital Course Hospital Course Destiny Quintana is a 77 year old female with a past medical history of paroxysmal atrial fibrillation, not on anticoagulation, history of diastolic CHF, history of possible Lewy body dementia, history of lower extremity edema, history of anemia, history of chronic hearing loss, recent history of left femoral hernia repair, who presents to [facility] due to shortness of breath, lower extreme edema, increased confusion. Currently patient alert to person, not to place, not to time, she tells me that she is the president, when asked her why she is here, she tells that she is delivering a baby, she is currently on 2 L, no evidence of respiratory distress, currently in A-fib on Cardizem at 15 heart rates in the 130s, has 3+ pitting edema bilateral lower extremities, I cannot discern any facial droop, no slurring of her words, pupils equal round reactive to light, spontaneous movement of upper and lower extremities. I spoke to [facility] halfway, who tells me that over the last few weeks, patient has developed increased lower extremity edema, she has gained roughly about 20 pounds, due to increased lower extremity edema she has been less mobile, more bedbound, they have been trying to diurese her, but its been difficult, she has been in creasingly short of breath, and yesterday she started to have episodes of confusion, no fevers, no recent history of UTI, she recently was discharged from the hospital for left femoral hernia surgery, no recent falls, recent injuries, nursing staff in the ER tell me that she has been more alert awake, she has received Levaquin, she is on Cardizem possibly she is encephalopathic currently, from left lower lobe pneumonia Patient required hospitalization for acute hypoxic respiratory failure secondary to diastolic CHF and pulm edema, fluid overload, lower extremity FRANKO with left lower lobe pneumonia, received IV antibiotics IV diuresis, diuresed over 9 L negative, discharged on Lasix 40 mg daily with potassium replacement therapy with recheck potassium and creatinine as outpatient for 8 hours. For pneumonia, discharged on 7 remaining days of p.o. antibiotics, Augmentin. For A-fib with RVR, during hospitalization requiring Cardizem drip, continue to have A-fib with RVR, transition to amiodarone, overall did well transition to p.o. amiodarone, discharged on tapering dose of amiodarone, Eliquis for stroke prophylaxis. In the past patient has been hesitant to use anticoagulant therapy , no history of GI bleeds. Currently patient alert to person, not place, to time, shared decision making was made with patient's daughter at bedside. I discussed the risks and benefits of anticoagulant therapy, Eliquis, including but not limited to risk of GI bleeds, risk of significant bleeding, morbidity and mortality associated, benefit including decreased risk of stroke, shared decision making, she voiced understanding, all consents recommended to proceed with anticoagulant therapy. Follow-up with cardiology in 1 to 2 weeks. For Enterococcus UTI, managed with IV vancomycin, completed antibiotic therapy as inpatient, For urinary retention, will keep La catheter in place, follow-up with urology as outpatient for removal of La catheter, For patient's encephalopathy, she is back to baseline, at baseline she alert to person, not to place, not to time she, she is being investigated for dementia, possible Lewy body versus Alzheimer's dementia she will follow-up with neurology for MRI and further testing Physical Exam Const: COMMON NORMALS: no acute distress and patient oriented x3 Resp: COMMON NORMALS: normal respiratory effort, No retractions, No use of accessory muscles and clear to auscultation bilaterally AUSCULTATION: clear to auscultation bilaterally Cardio: COMMON NORMALS: regular rate, regular rhythm, S1 normal heart sound present and S2 normal heart sound present RATE: regular rate RHYTHM: regular rhythm HEART SOUNDS: S1 normal heart sound present and S2 normal heart sound present GI: COMMON NORMALS: Normal to inspection, nondistended, normoactive bowel sounds present and non-tender Extremity: COMMON NORMALS: no pedal edema Neuro: COMMON NORMALS: patient oriented x3 Psych: COMMON NORMALS: mental status grossly normal Urinary Catheter Management: La: Cath Placed During This Visit: yes Reason for Continuing Indwelling Catheter: Acute Urinary Retention or Obstruction Urinary Catheter Date of Insertion: 03/19/23 Urinary Catheter Time of Insertion: 16:35 Discharge Data Studies Completed and Pending Completed Studies During Hospitalization Category Date Time Status CT angio chest w abd pel w con Stat Cat Scan 03/19/23 15:[address] chest wo con [id number] Routine Cat Scan 03/24/23 08:[address] head wo con* [id number] Routine Cat Scan 03/19/23 15:15 Completed XR chest 1V portable [id number] Routine Exams 03/23/23 13:02 Completed XR chest 1V portable [id number] Stat Exams 03/19/23 12:08 [place] [id number] Routine Ultrasound 03/19/23 15:26 Completed CV. echo complete* [id number] Routine Ultrasound 03/19/23 15:18 Completed US gall bladder [id number] Routine Ultrasound 03/24/23 18:56 Completed Pending at discharge Category Date Time Status Blood Culture Stat Lab 03/23/23 14:08 Results Blood Culture Stat Lab 03/25/23 10:13 Results Body Fluid Culture & GS Stat Lab 03/24/23 22:00 Results C Reactive Protein AM LABS Lab 03/27/23 04:00 Ordered Complete Blood Count w/Auto AM LABS Lab 03/27/23 04:00 Ordered Complete Blood Count w/Auto AM LABS Lab 03/28/23 04:00 Ordered Comprehensive Metabolic Panel AM LABS Lab 03/27/23 04:00 Ordered Comprehensive Metabolic Panel AM LABS Lab 03/28/23 04:00 Ordered Magnesium AM LABS Lab 03/27/23 04:00 Ordered Phosphorus AM LABS Lab 03/27/23 04:00 Ordered Procalcitonin AM LABS Lab 03/27/23 04:00 Ordered Sputum Culture and Gram Stain Stat Lab 03/25/23 08:42 Uncollected Vancomycin Trough Timed Lab 03/26/23 22:00 Ordered Radiology Impressions Head CT 03/19/23 15:15 IMPRESSION: 1. No acute intracranial hemorrhage or evidence of acute territorial infarct. 2. Small partially calcified extra-axial density along the right inferior frontal convexity, unchanged, most likely a partially calcified meningioma or bulky dural calcification. Chest/Abdomen/Pelvis CT 03/19/23 15:20 IMPRESSION: 1. No pulmonary emboli. 2. Small bilateral pleural effusions. IMPRESSION: 1. Postop changes with no evidence of obstruction. 2. Diffuse subcutaneous edema. 3. Constipation. Possible fecal impaction. Venous Duplex 03/19/23 15:26 IMPRESSION: No evidence of deep vein thrombosis. Chest X-Ray 03/23/23 13:02 IMPRESSION: Small bilateral pleural effusions and suggested pulmonary edema may be cardiogenic in etiology. Developing pneumonia difficult to entirely exclude. Laboratory Results WBC 7.45 10^3/uL (3.29-11.43) 03/26/23 03:44 RBC 3.61 10^6/uL (3.85-5.65) L 03/26/23 03:44 Hgb 10.30 g/dL (11.27-16.99) L 03/26/23 03:44 Hct 32.2 % (36-47) L 03/26/23 03:44 MCV 89.2 fl (85-98) 03/26/23 03:44 MCH 28.5 pg (27-33) 03/26/23 03:44 MCHC 32.0 g/dL (30-55) 03/26/23 03:44 RDW 14.6 % (12.1-15.1) 03/26/23 03:44 Plt Count 356 10^3/cmm (157-399) 03/26/23 03:44 MPV 11.4 fL (7.4-10.4) H 03/26/23 03:44 Neut % (Auto) 80.6 % 03/26/23 03:44 Lymph % (Auto) 9.0 % 03/26/23 03:44 [place] % (Auto) 8.7 % 03/26/23 03:44 Eos % (Auto) 1.2 % 03/26/23 03:44 Baso % (Auto) 0.1 % 03/26/23 03:44 Neut # (Auto) 6.00 10^3/uL (1.8-7.7) 03/26/23 03:44 Lymph # (Auto) 0.7 10^3/uL (0.8-4.8) L 03/26/23 03:44 [place] # (Auto) 0.7 10^3/uL (0.2-0.9) 03/26/23 03:44 Eos # (Auto) 0.1 10^3/uL (0.0-0.8) 03/26/23 03:44 Baso # (Auto) 0.0 10^3/uL (0.0-0.1) 03/26/23 03:44 Nucleated RBC % (auto) 0 % 03/26/23 03:44 Nucleated RBCs # 0.0 /100WBC 03/26/23 03:44 PT 15.40 SECONDS (12.1-14.9) H 03/19/23 12:27 INR 1.18 (0.8-1.2) 03/19/23 12:27 APTT 58.5 SECONDS (23.9-36.7) H 03/22/23 04:16 D-Dimer 4.10 ug/mLFEU (0-0.59) H 03/19/23 12:27 Specimen Type Arterial 03/24/23 00:29 Sample Site Brachial, right 03/24/23 00:29 ABG pH 7.43 (7.35-7.45) 03/24/23 00:29 ABG pCO2 49.2 mmHg (35-45) H 03/24/23 00:29 ABG pO2 110.0 mmHg (80.0-100.0) H 03/24/23 00:29 ABG HCO3 32.9 mmol/L (22-26) H 03/24/23 00:29 ABG O2 Saturation 99.7 03/24/23 00:29 ABG Base Excess 7.6 mmol/L (-2.0-2.0) H 03/24/23 00:29 Mike Test N/a 03/24/23 00:29 A-a O2 Gradient Not Reportable 03/24/23 00:29 Hematocrit 31.1 % (37-47) L 03/24/23 00:29 Hgb O2 Saturation 97.0 % (95-100) 03/24/23 00:29 Carboxyhemoglobin 1.9 %THgb (0.4-20.1) 03/24/23 00:29 Methemoglobin 0.8 % (0.4-1.5) 03/24/23 00:29 Total Hemoglobin 10.1 g/dL (12-16) L 03/24/23 00:29 Sodium 137.0 mmol/L (131-143) 03/24/23 00:29 Potassium 3.8 mmol/L (3.5-5.0) 03/24/23 00:29 Glucose 118.0 mg/dL (70-115) H 03/24/23 00:29 Ionized Calcium 1.2 mmol/L (1.1-1.4) 03/24/23 00:29 O2 Delivery Device Nc 03/24/23 00:29 O2 Liters/Min 2.0 % 03/24/23 00:29 Editor Dictionary ID [id number] 03/24/23 00:29 Sodium 133 mmol/L (136-145) L 03/26/23 03:44 Potassium 3.8 mmol/L (3.5-5.1) 03/26/23 03:44 Chloride 93 mmol/L (98-107) L 03/26/23 03:44 Carbon Dioxide 30 mmol/L (22-29) H 03/26/23 03:44 Anion Gap 13.8 (5-19) 03/26/23 03:44 BUN 23 mg/dL (8-23) 03/26/23 03:44 Creatinine 0.6 mg/dL (0.5-0.9) 03/26/23 03:44 GFR Calculation Not Reportable 03/26/23 03:44 Glucose 106 mg/dL (65-115) 03/26/23 03:44 Estimat Average Glucose 85 03/20/23 06:38 Hemoglobin A1c 4.6 % (4.0-6.0) 03/20/23 06:38 Calculated Osmolality 280 mOsm/kg (285-295) L 03/26/23 03:44 Lactic Acid 1.1 mmol/L (0.5-2.2) 03/19/23 12:38 Lactate 1.1 mmol/L (0.5-2.2) 03/25/23 02:59 Calcium 9.2 mg/dL (8.5-10.5) 03/26/23 03:44 Phosphorus 2.5 mg/dL (2.5-4.5) 03/26/23 03:44 Magnesium 2.2 mg/dL (1.7-2.3) 03/26/23 03:44 Iron 16 ug/dL (37-145) L 03/21/23 02:58 Ferritin 229 ng/mL (15-150) H 03/21/23 02:58 Total Bilirubin 0.4 mg/dL (0.15-1.2) 03/26/23 03:44 AST 10 U/L (0-32) 03/26/23 03:44 ALT 11 U/L (0-33) 03/26/23 03:44 Alkaline Phosphatase 100 U/L (35-105) 03/26/23 03:44 Troponin T Baseline 75 ng/L (0-10) H 03/19/23 12:27 Troponin T 120 Minute 68.24 ng/L (0-10) H 03/19/23 14:13 Delta Troponin T -6.76 ABS# (0-10) L 03/19/23 14:13 Troponin T Hi Sens 6Hr 73.05 ng/L (0-10) H 03/19/23 18:33 Troponin T Hi Sens 6Hr Delta -1.95 ng/L (0-12) L 03/19/23 18:33 C-Reactive Protein 140.9 mg/L (0.0-4.9) H 03/26/23 03:44 NT-Pro-B Natriuret Pep 5454 pg/mL (0-450) H 03/19/23 14:30 Total Protein 6.4 g/dL (6.6-8.7) L 03/26/23 03:44 Albumin 3.2 g/dL (3.5-5.2) L 03/26/23 03:44 Globulin 3.2 g/dL (1.3-4.6) 03/26/23 03:44 Triglycerides 96 mg/dL (0-150) 03/20/23 06:38 Cholesterol 114 mg/dL (0-200) 03/20/23 06:38 LDL Cholesterol, Calc 57 mg/dL (50-129) 03/20/23 06:38 HDL Cholesterol 38 mg/dL (60-100) L 03/20/23 06:38 LDL/HDL Ratio 1.50 RATIO (0.00-3.22) 03/20/23 06:38 Cholesterol/HDL Ratio 3.00 mg/dL (0.0-4.40) 03/20/23 06:38 Lipase 18 U/L (13-60) 03/19/23 12:27 Procalcitonin 0.14 ng/mL (0-0.5) 03/26/23 03:44 TSH 4.18 uIU/mL (0.27-4.20) 03/20/23 06:38 Urine Color Cancelled 03/25/23 09:30 Urine Color Dark yellow (Yellow) 03/25/23 09:30 Urine Appearance Cancelled 03/25/23 09:30 Urine Appearance Clear (CLEAR) 03/25/23 09:30 Urine pH 6 (5-7) 03/25/23 09:30 Urine pH Cancelled 03/25/23 09:30 Ur Specific [place] 1.020 (1.005-1.030) 03/25/23 09:30 Ur Specific [place] Cancelled 03/25/23 09:30 Urine Protein Cancelled 03/25/23 09:30 Urine Protein Trace (Negative) 03/25/23 09:30 Urine Glucose (UA) Cancelled 03/25/23 09:30 Urine Glucose (UA) Norm (Normal) 03/25/23 09:30 Urine Ketones Cancelled 03/25/23 09:30 Urine Ketones Negative (Negative) 03/25/23 09:30 Urine Blood Cancelled 03/25/23 09:30 Urine Blood Neg (Negative) 03/25/23 09:30 Urine Nitrate Cancelled 03/25/23 09:30 Urine Nitrate Negative (Negative) 03/25/23 09:30 Urine Bilirubin Cancelled 03/25/23 09:30 Urine Bilirubin Neg (Negative) 03/25/23 09:30 Prot Sulfosalicylic Acd Cancelled 03/25/23 09:30 Urine Urobilinogen 4 mg/dL (Negative) H 03/25/23 09:30 Urine Urobilinogen Cancelled 03/25/23 09:30 Ur Leukocyte Esterase Cancelled 03/25/23 09:30 Ur Leukocyte Esterase Negative (Negative) 03/25/23 09:30 Urine RBC 0-4 /hpf (0-2) H 03/25/23 09:30 Urine WBC 0-4 /hpf (0-5) H 03/25/23 09:30 Ur Squamous Epith Cells 10-15 /hpf (0-5) H 03/25/23 09:30 Ur Transition Epith Cell 0-4 /hpf 03/25/23 09:30 Amorphous Sediment Not Reportable 03/25/23 09:30 Urine Bacteria Trace /hpf (NONE) 03/25/23 09:30 Urine Mucus 3+ /hpf 03/25/23 09:30 Ur Oval Fat Bodies 1+ /hpf 03/25/23 09:30 Nasal Influ A H1 2009 PCR Not detected (NOT DETECT) 03/23/23 14:00 Vancomycin Trough 6.2 ug/mL (10-15) L 03/24/23 13:59 Serum Ketones Negative (Negative) 03/19/23 12:27 Adenovirus (PCR) Not detected (NOT DETECT) 03/23/23 14:00 C. pneumoniae DNA (PCR) Not detected (NOT DETECT) 03/23/23 14:00 Coronavirus 229E (PCR) Not detected (NOT DETECT) 03/23/23 14:00 Human Metapneumovir PCR Not detected (NOT DETECT) 03/23/23 14:00 Influenza A (H1) PCR Not detected (NOT DETECT) 03/23/23 14:00 Influenza A (H3) PCR Not detected (NOT DETECT) 03/23/23 14:00 Influenza Type A (PCR) Not detected (NOT DETECT) 03/23/23 14:00 Influenza Type B (PCR) Not detected (NOT DETECT) 03/23/23 14:00 M. pneumoniae (PCR) Not detected (NOT DETECT) 03/23/23 14:00 Parainfluenza 1 (PCR) Not detected (NOT DETECT) 03/23/23 14:00 Parainfluenza 2 (PCR) Not detected (NOT DETECT) 03/23/23 14:00 Parainfluenza 3 (PCR) Not detected (NOT DETECT) 03/23/23 14:00 Parainfluenza 4 (PCR) Not detected (NOT DETECT) 03/23/23 14:00 RSV Type A (PCR) Not detected (NOT DETECT) 03/23/23 14:00 RSV Type B (PCR) Not detected (NOT DETECT) 03/23/23 14:00 Entero/Rhino (PCR) Not detected (NOT DETECT) 03/23/23 14:00 SARS-CoV-2 (PCR) Not detected (NOT DETECT) 03/23/23 14:00 Vitals Last Vital Signs Temp 98.8 F 03/26/23 07:58 Pulse 54 L 03/26/23 08:00 Resp 18 03/26/23 08:00 BP 124/67 03/26/23 07:58 Pulse Ox 97 03/26/23 08:00 O2 Del Method Room Air 03/26/23 08:00 O2 Flow Rate 2 03/24/23 08:00 Discharge Plan Discharge Patient Disposition: Xfer SNF Condition: Stable Prescriptions: New Eliquis 5 mg Tablet 5 mg PO Q12H 30 Days Qty: 60 0RF potassium chloride [Klor-Con M20] 20 mEq tablet,ER particles/crystals 20 meq PO DAILY 30 Days Qty: 30 0RF furosemide 40 mg Tablet 40 mg PO DAILY@0800 30 Days Qty: 30 0RF amoxicillin-pot clavulanate 875-125 mg tablet 1 tab PO BID 7 Days Qty: 14 0RF amiodarone 200 mg tablet See Rx Instructions .ROUTE .COMPLEX 30 Days Qty: 60 0RF Rx Instructions: 200 mg twice daily for 1 week followed by 200 mg once daily Continued (DME) comp.stocking,knee,long,medium Misc See Rx Instructions .Route Qty: 12 0RF Rx Instructions: As directed magnesium oxide 400 mg magnesium Tablet 400 mg PO QAM PRN (Reason: Muscle Spasm) Prevagen 1 cap PO QAM acetaminophen 325 mg Tablet 650 mg PO Q6H Qty: 90 0RF polyethylene glycol 3350 17 gram Powder In Packet 17 g PO DAILY Qty: 10 0RF Milk of Magnesia 400 mg/5 mL Suspension 15 ml PO Q72H PRN (Reason: Constipation) Dulcolax (bisacodyl) 10 mg Suppository 10 mg SD DAILY PRN (Reason: Constipation) Fleet Enema 19-7 gram/118 mL Enema 118 ml SD DAILY PRN (Reason: Constipation) Dulcolax (bisacodyl) 5 mg Tablet,Delayed Release (Dr/Ec) 5 mg PO DAILY PRN (Reason: Constipation) Discontinued metoprolol tartrate 25 mg tablet 25 mg PO BID Qty: 180 3RF aspirin 325 mg Tablet 325 mg PO QAM furosemide 20 mg tablet 20 mg PO DAILY Discharge Orders: Discharge Order (Routine); Ordered 03/26/23 Ordered By: Dann Navarro Referrals: Eulalia Turner MD [Physician] - 1 week Jose Antonio Bose MD [Referring] - 1 week Ying Bonilla MD [Primary Care Provider] - Discharge Diet: As Directed and Cardiac Discharge Activity: Resume usual activity Patient Instructions: Furosemide (By mouth) (Lasix), Potassium Chloride (By mouth) (K-Dur, K-Claire, K-Tab, Armando Mur), Amoxicillin/Clavulanate Potassium (By mouth) (Augmentin, Augmentin..., Amiodarone (By mouth) (Cordarone, Pacerone), Apixaban (By mouth) (Eliquis), Heart Failure (DC), CHF Stoplight, Post Heart Attack Stoplight Activity Restrictions/Additional Instructions: - Please recheck kidney function and potassium in 48 hours ? Monitor for fevers, ? Monitor for shortness of breath, cough, ? Has completed antibiotic therapy for Enterococcus UTI ? Please follow-up with urology to remove La catheter, urinary retention, monitor for catheter associated UTI Discharge Attestations Time Spent in Discharge Care*: greater than 30 min Quality Metrics Clinical Quality Measures [ No reported AMI, CVA or VTE this stay] Coding Level of Care Code 95856 Total time (in minutes) for Discharge: 45 Diagnoses Acute hypoxemic respiratory failure J96.01 Pneumonia J18.9 Diastolic CHF, acute I50.31 Grade II diastolic dysfunction I51.89 Hx of hernia repair Z98.890; Z87.19 Congestive heart failure I50.9 Atrial fibrillation with rapid ventricular response I48.91 Acute encephalopathy G93.40 NSTEMI (non-ST elevated myocardial infarction) I21.4
[2023-03-26 12:00] VITALS: BP 109/61; PULSE 61; RESP 17; O2SAT 95
== END 2023-03-26 15:26 | disposition skilled nursing facility (03) | DRG 193 ==
LOC: ER 12:14 → ER IP 14:35 → CSU 18:10
PROVIDERS: Internal Medicine; Admitting Provider Family Medicine; Emergency Provider Family Medicine; PCP Family Medicine; Visit Provider Family Medicine
DX: J18.9 Pneumonia, unspecified organism (principal); I50.33 Acute on chronic diastolic (congestive) heart failure; J96.01 Acute respiratory failure with hypoxia; G93.49 Other encephalopathy; N39.0 Urinary tract infection, site not specified; L89.151 Pressure ulcer of sacral region, stage 1; I48.0 Paroxysmal atrial fibrillation; H91.90 Unspecified hearing loss, unspecified ear; B95.2 Enterococcus as the cause of diseases classified elsewhere; I73.9 Peripheral vascular disease, unspecified; I27.20 Pulmonary hypertension, unspecified; Z11.52 Encounter for screening for COVID-19; Z86.73 Personal history of transient ischemic attack (TIA), and cerebral infarction without residual deficits; Z85.51 Personal history of malignant neoplasm of bladder; Z87.891 Personal history of nicotine dependence
CPT/HCPCS: 36415; 36600; 51702; 70450; 71045; 71250; 71275; 74177; 76705; 80051; 80053; 80061; 80202; 81001; 81003; 81015; 82009; 82274; 82330; 82728; 82803; 82805; 83036; 83540; 83605; 83690; 83735; 83880; 84100; 84145; 84443; 84484; 85025; 85378; 85610; 85730; 86140; 87040; 87070; 87075; 87077; 87086; 87186; 87205; 87210; 87486; 87581; 87633; 92523; 92610; 93005; 93306; 93970; 94664; 96365; 96366; 96367; 96375; 96376; 99291; C9113; J0283; J0456; J0692; J0696; J1644; J1940; J1956; J3370; J3490; J7030; J7050; P9047; Q9967

== ENCOUNTER 2023-04-02 14:34 | Oncology outpatient (recurring) (ONCR) | payer MEDICARE, SELFPAY ==
[2023-04-02 16:18] LABS: Reticulocyte % 1.6 % (0.5-2.0)
[2023-04-02 16:19] LABS: Basophils % 0.3 %; Eosinophils # 0.1 10^3/uL (0.0-0.8); Eosinophils % 1.7 %; Hematocrit 36.4 % (36-47); Lymphocytes # 0.8 10^3/uL (0.8-4.8); Lymphocytes % 11.5 %; Mean Corpuscular HGB Conc 31.3 g/dL (30-55); Mean Corpuscular Hemoglobin 27.8 pg (27-33); Mean Corpuscular Volume 88.8 fl (85-98); Mean Platelet Volume 10.6 fL (7.4-10.4); Monocytes # 0.4 10^3/uL (0.2-0.9); Monocytes % 5.7 %; Neutrophils # 5.63 10^3/uL (1.8-7.7); Neutrophils % 80.2 %; Nucleated Red Blood Cells % 0 %; Platelet Count 638 10^3/cmm (157-399); Red Cell Distribution Width 14.6 % (12.1-15.1); White Blood Count 7.02 10^3/uL (3.29-11.43)
[2023-04-02 16:38] LABS: Partial Thromboplastin Time 38.6 SECONDS (23.9-36.7)
[2023-04-02 16:48] LABS: Alanine Aminotransferase 11 U/L (0-33); Albumin Level 3.8 g/dL (3.5-5.2); Alkaline Phosphatase 132 U/L (35-105); Anion Gap 13.6 (5-19); Aspartate Amino Transferase 14 U/L (0-32); Blood Urea Nitrogen 19 mg/dL (8-23); Calcium 9.4 mg/dL (8.5-10.5); Carbon Dioxide 28 mmol/L (22-29); Chloride 96 mmol/L (98-107); Ferritin 269 ng/mL (15-150); Globulin 3.6 g/dL (1.3-4.6); Glucose 101 mg/dL (65-115); Lactate Dehydrogenase 173 U/L (135-214); Osmolality Calculated 278 mOsm/kg (285-295); Potassium 4.6 mmol/L (3.5-5.1); Sodium 133 mmol/L (136-145); Total Bilirubin 0.4 mg/dL (0.15-1.2); Total Protein 7.4 g/dL (6.6-8.7)
[2023-04-02 17:21] LABS: Thyroid Stimulating Hormone 5.86 uIU/mL (0.27-4.20)
[2023-04-02 17:29] LABS: Vitamin B12 426 pg/mL (232-1245)
[2023-04-02 18:18] LABS: Folate Level 10.8 ng/mL (4.8-37.3)
== END 2023-04-19 23:59 | disposition home or self-care (01) ==
PROVIDERS: PCP Family Medicine; Visit Provider Internal Medicine Hematology & Oncology
DX: I48.0 Paroxysmal atrial fibrillation (principal); I73.9 Peripheral vascular disease, unspecified; M19.90 Unspecified osteoarthritis, unspecified site; R53.83 Other fatigue; Z78.0 Asymptomatic menopausal state; R91.1 Solitary pulmonary nodule; R00.1 Bradycardia, unspecified; R79.1 Abnormal coagulation profile; R25.8 Other abnormal involuntary movements; R55 Syncope and collapse; R26.9 Unspecified abnormalities of gait and mobility; R29.818 Other symptoms and signs involving the nervous system
CPT/HCPCS: 36415; 80053; 82607; 82728; 82746; 83615; 84443; 85025; 85045; 85610; 85730; 95812; 95816; 99204

== ENCOUNTER 2023-04-16 15:04 | Outpatient (CLI) | payer MEDICARE, SELFPAY ==
--- NOTE | 2023-04-16 15:15 | MR_ITS ---
WS: [id number] MRI HEAD WITHOUT CONTRAST TECHNIQUE: Sagittal T1, T2 axial, T2 axial FLAIR, axial and coronal T1 images, axial susceptibility w eighted imaging, axial diffusion weighted images, and coronal T2 images were obtained. CLINICAL INFORMATION: F03.90 - Unspecified dementia, unspecified severity, with... COMPARISON: CT head 03/19/2023 FINDINGS: No evidence of restricted diffusion to suggest acute ischemia. Mild small vessel changes. M oderate parenchymal volume loss. Normal posterior fossa. Normal vascular flow voids at the skull base . No extra-axial fluid collections. No evidence of mass or mass effect. Paranasal sinuses and mastoid air cells well aerated. No hemosiderin on the susceptibly weighted images. Normal optic chiasm and pituitary infundibulum. Mi ld to moderate symmetric atrophy temporal lobes and hippocampal formations. Stable calcified extra-axial lesion along the RIGHT insula compatible with calcified meningioma. This is unchanged measuring 1.3 x 0.7 cm. IMPRESSION: 1. No evidence of restricted diffusion to suggest acute ischemia. 2. Mild small vessel changes. Moderate parenchymal volume loss slightly more prominent in the pariet al lobes. 3. Mild to moderate symmetric atrophy temporal lobes hippocampal formations. 4. Stable calcified meningioma along the RIGHT insula. 5. No hemosiderin on the susceptibly weighted images.
== END 2023-04-16 15:05 | disposition home or self-care (01) ==
LOC: RAD 15:05
PROVIDERS: PCP Family Medicine; Visit Provider Psychiatry & Neurology Neurology
DX: F03.90 Unspecified dementia, unspecified severity, without behavioral disturbance, psychotic disturbance, mood disturbance, and anxiety (principal); R42 Dizziness and giddiness; R55 Syncope and collapse; D32.0 Benign neoplasm of cerebral meninges
CPT/HCPCS: 70551

== ENCOUNTER 2023-04-27 14:58 | Outpatient (CLI) | payer MEDICARE, SELFPAY ==
--- NOTE | 2023-04-27 15:30 | XR_ITS ---
WS: [id number] SCREENING DEXA SCAN [employer] CLINICAL INFORMATION: post menopausal COMPARISON: None. FINDINGS: The L1-L4 bone mineral density measures 0.735 g/cm2. This corresponds to a T score score of -3.7 and Z score of -1.7. Left femoral neck bone mineral density measures 0.478 g/cm2. This corresponds to a T score of -4.2 an d Z score of -2.2. Right femoral neck bone mineral density measures 0.608 g/cm2. This corresponds to a T score -3.2of an d Z score of -1.2. Mean femoral neck bone mineral density measures 0.543 g/cm2. This corresponds to a T score of -3.7 an d Z score of -1.7. IMPRESSION: Osteoporosis lumbar spine. Osteoporosis femoral necks. Patient's FRAX calculated 10 year probability for major osteoporotic fracture is 36.1% and osteoporot ic hip fracture is 16.5%.
== END 2023-04-27 14:59 | disposition home or self-care (01) ==
LOC: RAD 14:58
PROVIDERS: PCP Family Medicine; Visit Provider Internal Medicine Hematology & Oncology
DX: Z78.0 Asymptomatic menopausal state (principal); M81.0 Age-related osteoporosis without current pathological fracture
CPT/HCPCS: 77080

== ENCOUNTER 2023-04-27 16:02 | Inpatient (IN) | payer MEDICARE, MEDICAID, SELFPAY ==
[2023-04-27 16:04] VITALS: BP 117/74; PULSE 82; RESP 16; TEMP 36.7; O2SAT 95; BMI 21.8
--- NOTE | 2023-04-27 16:09 | XRR_ITS ---
PROCEDURE INFORMATION: Exam: XR Chest Exam date and time: 04/27/2023 4:13 PM Age: 77 years old Clinical indication: Shortness of breath; Additional info: Fall TECHNIQUE: Imaging protocol: Radiologic exam of the chest. Views: 1 view. COMPARISON: CT chest con [id number] 03/24/2023 9:05 AM FINDINGS: Lungs: There are biapical densities most suggestive of apical scarring, similar to 03/24/2023 skin folds noted incidentally on the left. There is slightly increased density in the right mid lung laterally which may relate to atelectasis, otherwise the lungs appear clear. Pleural spaces: No pleural effusion identified. Heart/Mediastinum: The heart is not enlarged. The mediastinum is not enlarged. Cardiomediastinal silhouette appears grossly stable allowing for differences in patient positioning. Bones/joints: No acute osseous abnormality identified. XR/XR chest 1V portable [id number] IMPRESSION: Substantial interval improvement in aeration at both lung bases. There is new minimal density in the right mid lung laterally, nonspecific but favored to represent atelectasis. Follow-up with PA and lateral chest x-ray may be helpful.
--- NOTE | 2023-04-27 16:09 | XRR_ITS ---
PROCEDURE INFORMATION: Exam: XR Right Hip Exam date and time: 04/27/2023 4:13 PM Age: 77 years old Clinical indication: Injury or trauma; Fall; Blunt trauma (contusions or hematomas); Right; Hip TECHNIQUE: Imaging protocol: Radiologic exam of the right hip. Views: 1 view hip with pelvis when performed. COMPARISON: CT angio chest w abd pel w con 03/19/2023 7:16 PM FINDINGS: Bones/joints: Acute displaced fracture of the right femoral neck with varus deformity . No dislocation of the femoral head. Soft tissues: Soft tissues demonstrate a prominent amount of stool in the rectum. XR/XR hip RT 2-3V wo/w pel* [id number] IMPRESSION: Acute transversely oriented fracture of the right femoral neck.
--- NOTE | 2023-04-27 16:17 | ED_ITS ---
HPI - Extremity Problem General: Chief complaint: Extremity Injury, Lower Stated complaint: hip fracture Time Seen by Provider: 04/27/23 16:04 Source: family Mode of arrival: ambulatory Limitations: altered mental status History of Present Illness: 77-year-old female is here from x-ray pa ayan is a [facility] patient at [facility] she had no known falls been complaining some hip pain on the right hip she had a bone study scan related seen a left hip fracture. Patient is here with daughter states she has been in the [facility] for 2 months and has not been ambulating recently patient's daughter knows of no known falls patient does have dementia history is not available from her. Review of Systems General: Reports: ROS unobtainable due to mental status PFSH ED PFSH: Medical History Anemia Paroxysmal atrial fibrillation Dehydration Femoral hernia of left side with gangrene and obstruction Strangulated inguinal hernia Incarcerated inguinal hernia Visual hallucinations Confusion History of CVA (cerebrovascular accident) Memory changes Peripheral arterial disease Lung nodule Pulmonary hypertension Chest pain Ovarian cystic mass Incomplete bladder emptying Palpitations History of hematuria History of bladder cancer Chronic cystitis Surgical History History of resection of small bowel Hx of hernia repair Dr. Reyes 01/23/23 open left femoral hernia repair with mesh, diagnostiv laparascopy, laparotomy with small bowel resection and primary anastomosis History of ear surgery History of lateral meniscus repair of right knee History of cataract removal with insertion of prosthetic lens History of right salpingo-oophorectomy Status post surgical removal and fulguration of bladder neoplasm Family History Father Colon cancer Sister Multiple myeloma Denies family history of Ovarian cancer Diabetes Dementia Heart disease Hypercholesteremia Breast cancer Hypertension Uterine cancer Thyroid disease Stroke Social History Smoking and tobacco/nicotine status: former use of tobacco/nicotine Quit status (tobacco/nicotine): has quit using Year quit tobacco: 2020 Alcohol intake: never Household members: none Number of children: 1 Number of grandchildren: 1 Current occupational status: retired 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 Joyce/Taoism: Spiritism Special joyce needs: Yes Details: call for final right Agree to transfusion: Yes Physical Exam Const: COMMON NORMALS: negative for patient oriented x3 HENMT: COMMON NORMALS: normocephalic and atraumatic HEAD & SCALP: normocephalic and atraumatic Eye: COMMON NORMALS: Equal, round and reactive pupils present and EOMs intact bilaterally PUPIL: Yes Equal, round and reactive pupils present Neck/C-Spine: COMMON NORMALS: full ROM and supple Chest: COMMONS NORMALS: normal inspection of the chest Resp: COMMON NORMALS: normal respiratory effort Cardio: COMMON NORMALS: regular rate, regular rhythm and No murmurs present (Cardio) RATE: regular rate RHYTHM: regular rhythm Extremity: COMMON NORMALS: full ROM NARRATIVE EXTREMITY EXAM: Tenderness noted to right hip Neuro: COMMON NORMALS: moves all extremities and no focal motor deficits; negative for patient oriented x3 Psych: COMMON NORMALS: mental status grossly normal, Normal thought process present and cooperative THOUGHT PROCESS: Normal thought process present Skin: COMMON NORMALS: no rashes or lesions noted and no wounds GENERAL SKIN EXAM: no rashes or lesions noted Course Vital Signs: Vital signs: Vital Signs Temperature 98.1 F 04/27/23 16:04 Pulse Rate 63 04/27/23 17:01 Respiratory Rate 16 04/27/23 17:01 Blood Pressure 129/79 04/27/23 17:01 Pulse Oximetry 97 04/27/23 17:01 Oxygen Delivery Me thod Room Air 04/27/23 16:04 MDM - Extremity (Nontraumatic) Medical Decision Making Patient presents here with a right hip fracture from a fall x-ray shows a hip fracture of spoke to hospitalist along with orthopedist and will admit at this time. Medical Records I reviewed the patient's medical records. Lab Data I reviewed the patient's lab results. Radiology Impressions Chest X-Ray 04/27/23 16:09 IMPRESSION: Substantial interval improvement in aeration at both lung bases. There is new minimal density in the right mid lung laterally, nonspecific but favored to represent atelectasis. Follow-up with PA and lateral chest x-ray may be helpful. Hip/Pelvis X-Ray 04/27/23 16:09 IMPRESSION: Acute transversely oriented fracture of the right femoral neck. All radiology interpretation(s) finalized by discharge Discharge Plan Discharge Patient Disposition: Admitted As Inpatient Admit Provider: Dann Navarro Clinical Impression: Closed fracture of right hip Condition: Stable Coding Level of Care Code ED Mc Kay Machine Operator for Renea Chakraborty
[2023-04-27] MEDS: HYDROmorphone 1 mg/mL INJ 1 mL 0.5 MG IVP (16:58)
[2023-04-27 17:01] VITALS: BP 129/79; PULSE 63; RESP 16; O2SAT 97
[2023-04-27 17:21] LABS: Basophils % 0.3 %; Eosinophils # 0.1 10^3/uL (0.0-0.8); Eosinophils % 0.8 %; Hematocrit 38.8 % (36-47); Lymphocytes # 0.8 10^3/uL (0.8-4.8); Lymphocytes % 13.5 %; Mean Corpuscular HGB Conc 30.7 g/dL (30-55); Mean Corpuscular Hemoglobin 27.4 pg (27-33); Mean Corpuscular Volume 89.4 fl (85-98); Mean Platelet Volume 11.5 fL (7.4-10.4); Monocytes # 0.5 10^3/uL (0.2-0.9); Monocytes % 8.3 %; Neutrophils # 4.71 10^3/uL (1.8-7.7); Neutrophils % 76.8 %; Nucleated Red Blood Cells % 0 %; Platelet Count 311 10^3/cmm (157-399); Red Blood Count 4.34 10^6/uL (3.85-5.65); Red Cell Distribution Width 15.2 % (12.1-15.1); White Blood Count 6.14 10^3/uL (3.29-11.43)
[2023-04-27 17:35] LABS: INR 1.64 (0.8-1.2)
--- NOTE | 2023-04-27 17:41 | P.HP_ITS ---
Providers/Chief Complaint 2 Admitting Physician: Dann Navarro MD Primary Care Provider: Ying Bonilla MD Chief Complaint: hip fracture History of Present Illness Destiny Quintana is a 77 year old female with a past medical history of paroxysmal atrial fibrillation, on anticoagulation, diastolic CHF, history of dementia, possible Lewy body dementia, history of lower extremity edema, show of anemia, chronic hearing loss, history of left femoral hernia repair, who presents to [facility] due to right hip fracture. Patient's daughter is at bedside who provides most of the history, patient alert to person, not to place, not to time, she is not moving her right lower extremity, really does not complain of pain, is not in pain, daughter denies any falls, no significant trauma at the [facility], she was treated for a UTI roughly a week ago, no issues with her A-fib no issues with her diastolic CHF, for her urinary retention she has a La catheter in place, Review of Systems 2 General: Reports: ROS unobtainable due to mental status Medications/Allergies Home Medications Medication Instructions Recorded Confirmed Last Taken Type Prevagen 1 cap PO QAM 12/19/22 04/02/23 03/18/23 History magnesium oxide 400 mg PO QAM PRN Muscle Spasm 12/19/22 04/02/23 02/26/23 History acetaminophen 325 mg tablet 650 mg (2 x 325 mg) PO Q6H #90 tabs 01/29/23 04/02/23 03/17/23 Rx polyethylene glycol 3350 17 gram 17 g PO DAILY #10 ea 01/29/23 04/02/23 03/18/23 Rx oral powder packet comp.stocking,knee,long,medium #12 ea 03/11/23 04/02/23 Unknown Rx bisacodyl 10 mg rectal suppository 10 mg HI DAILY PRN Constipation 03/19/23 04/02/23 Unknown History (Dulcolax (bisacodyl)) bisacodyl 5 mg tablet,delayed 5 mg PO DAILY PRN Constipation 03/19/23 04/02/23 Unknown History release (Dulcolax (bisacodyl)) magnesium hydroxide 400 mg/5 mL 15 ml PO Q72H PRN Constipation 03/19/23 04/02/23 Unknown History oral suspension (Milk of Magnesia) sodium phosphates 19 gram-7 118 ml HI DAILY PRN Constipation 03/19/23 04/02/23 Unknown History gram/118 mL enema (Fleet Enema) Allergies Allergy/AdvReac Type Severity Reaction Status Date / Time No Known Allergies Allergy Verified 04/02/23 15:11 PFSH Acute 2 PFSH: Medical History Anemia Paroxysmal atrial fibrillation Dehydration Femoral hernia of left side with gangrene and obstruction Strangulated inguinal hernia Incarcerated inguinal hernia Visual hallucinations Confusion History of CVA (cerebrovascular accident) Memory changes Peripheral arterial disease Lung nodule Pulmonary hypertension Chest pain Ovarian cystic mass Incomplete bladder emptying Palpitations History of hematuria History of bladder cancer Chronic cystitis Surgical History History of resection of small bowel Hx of hernia repair Dr. Reyes 01/23/23 open left femoral hernia repair with mesh, diagnostiv laparascopy, laparotomy with small bowel resection and primary anastomosis History of ear surgery History of lateral meniscus repair of right knee History of cataract removal with insertion of prosthetic lens History of right salpingo-oophorectomy Status post surgical removal and fulguration of bladder neoplasm Family History Father Colon cancer Sister Multiple myeloma Denies family history of Ovarian cancer Diabetes Dementia Heart disease Hypercholesteremia Breast cancer Hypertension Uterine cancer Thyroid disease Stroke Social History Smoking and tobacco/nicotine status: former use of tobacco/nicotine Quit status (tobacco/nicotine): has quit using Year quit tobacco: 2020 Alcohol intake: never Household members: none Number of children: 1 Number of grandchildren: 1 Current occupational status: retired 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 Joyce/Tenriism: Worship Special joyce needs: Yes Details: call supervisor mold shop for final right Agree to transfusion: Yes Vitals/I&O/Wt Last Vital Signs Temp 98.1 F 04/27/23 16:04 Pulse 63 04/27/23 17:01 Resp 16 04/27/23 17:01 BP 129/79 04/27/23 17:01 Pulse Ox 97 04/27/23 17:01 O2 Del Method Room Air 04/27/23 16:04 Weight last 48 hrs Weight 57.606 kg Physical Exam 2 Const: COMMON NORMALS: no acute distress EXAM LIMITATIONS: altered mental status ORIENTATION/CONSCIOUSNESS: Yes awake, Yes oriented to person and Yes confused; not oriented to place and not oriented to time HENMT: COMMON NORMALS: normocephalic HEAD & SCALP: normocephalic Eye: COMMON NORMALS: Equal, round and reactive pupils present Neck/C-Spine: COMMON NORMALS: no JVD Lymph: LYMPHATIC: no lymphadenopathy noted Resp: COMMON NORMALS: normal respiratory effort, No retractions, No use of accessory muscles and clear to auscultation bilaterally AUSCULTATION: clear to auscultation bilaterally Cardio: COMMON NORMALS: no JVD, regular rate, regular rhythm, S1 normal heart sound present and S2 normal heart sound present RATE: regular rate RHYTHM: regular rhythm HEART SOUNDS: S1 normal heart sound present and S2 normal heart sound present GI: COMMON NORMALS: Normal to inspection, nondistended, normoactive bowel sounds present, Soft to palpation and non-tender : COMMON NORMALS: Yes no CVA tenderness Extremity: COMMON NORMALS: no pedal edema Neuro: OTHER: Does not follow neurologic testing Data 04/27/23 16:42 04/27/23 16:42 A&P Assessment and plan (1) Grade II diastolic dysfunction: (2) Paroxysmal atrial fibrillation: (3) PVD (peripheral vascular disease): (4) Closed fracture of right hip: Qualifiers: Encounter type: initial encounter Qualified Code(s): S72.001A - Fracture of unspecified part of neck of right femur, initial encounter for closed fracture (5) Compression fracture: Plan Right hip fracture ? Last dose of Eliquis was this morning, will continue to hold, INR 1.64 ? Pain control morphine 2 mg IV push every 4 hours -Hold anticoagulation ? SCDs for DVT prophylaxis, ? General surgery consulted History of chronic urinary retention - history of UTI, history of enterococcus uti - La catheter placed - repeat UA History of atrial fibrillation, ? Will continue to monitor closely ?Eliquis on hold Diastolic CHF -not in exacerbation ? Monitor for fluid overload history of dementia - according to haja currently at bedside Attestations 2 Medical Necessity Statement*: Patient requires hospitalization for right hip fracture, inpatient, greater than 2 midnights Diagnoses Grade II diastolic dysfunction I51.89 Paroxysmal atrial fibrillation I48.0 PVD (peripheral vascular disease) I73.9 Closed fracture of right hip S72.001A Encounter type: initial encounter Compression fracture
[2023-04-27 17:48] LABS: Alanine Aminotransferase 7 U/L (0-33); Albumin Level 3.6 g/dL (3.5-5.2); Alkaline Phosphatase 118 U/L (35-105); Anion Gap 17.6 (5-19); Aspartate Amino Transferase 11 U/L (0-32); Blood Urea Nitrogen 25 mg/dL (8-23); Calcium 9.6 mg/dL (8.5-10.5); Carbon Dioxide 26 mmol/L (22-29); Chloride 101 mmol/L (98-107); Globulin 3.5 g/dL (1.3-4.6); Glucose 107 mg/dL (65-115); Osmolality Calculated 295 mOsm/kg (285-295); Potassium 4.6 mmol/L (3.5-5.1); Sodium 140 mmol/L (136-145); Total Bilirubin 0.2 mg/dL (0.15-1.2); Total Protein 7.1 g/dL (6.6-8.7)
--- NOTE | 2023-04-27 17:51 | ECG_ITS ---
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 Measurements Intervals [place] Rate: 59 P: 71 PA: 169 QRS: -51 QRSD: 82 T: 59 QT: 424 QTc: 421 Interpretive Statements SINUS BRADYCARDIA LOW QRS VOLTAGE IN PRECORDIAL LEADS [QRS DEFLECTION < 1.0 mV IN CHEST LEADS] LEFT ANTERIOR FASCICULAR BLOCK [QRS AXIS <= -45, QR IN I, RS IN II] Compared to ECG 03/19/2023 20:12:03 Low QRS voltage now present Left anterior fascicular block now present Electronically Signed On 04-27-2023 21:01:31 FRONT END MECHANIC by Eulalia Turner M.D. [id number]
[2023-04-27] MEDS: pantoprazole 40 mg SDV IVP (19:18)
[2023-04-27 19:21] VITALS: BP 110/77; PULSE 64; RESP 16; O2SAT 98
--- NOTE | 2023-04-27 19:45 | ECG_ITS ---
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 Measurements Intervals [place] Rate: 61 P: 74 WV: 163 QRS: -65 QRSD: 94 T: 65 QT: 391 QTc: 394 Interpretive Statements SINUS RHYTHM LEFT AXIS DEVIATION [QRS AXIS < -30] LOW QRS VOLTAGE IN PRECORDIAL LEADS [QRS DEFLECTION < 1.0 mV IN CHEST LEADS] Compared to ECG 04/27/2023 17:51:57 Left-axis deviation now present Sinus bradycardia no longer present Left anterior fascicular block no longer present Electronically Signed On 04-28-2023 4:24:56 CONSULTANT by Ren Baldwin M.D. [id number]
[2023-04-27 19:50] LABS: Lactic Sepsis W/Reflex 0.9 mmol/L (0.5-2.2)
[2023-04-27 19:51] LABS: Troponin(5th) Baseline 35 ng/L (0-10)
[2023-04-27 20:00] LABS: NT Pro B Type Natriuretic Pept 280 pg/mL (0-450); Procalcitonin 0.04 ng/mL (0-0.5)
[2023-04-27 20:30] VITALS: BP 99/69; PULSE 57; RESP 16; TEMP 36.8; O2SAT 96
[2023-04-27 20:35] VITALS: BMI 18.9
[2023-04-27 22:00] VITALS: PULSE 66
[2023-04-27 23:22] LABS: Troponin 5 2HR 29.46 ng/L (0-10)
[2023-04-27 23:24] LABS: Troponin 5 2HR Delta -5.54 ABS# (0-10)
[2023-04-28] VITALS (19 sets, daily range): BP systolic 79–126; BP diastolic 49–76; PULSE 52–68; RESP 16–18; TEMP 36.2–37; O2SAT 91–99; BMI 18.9
[2023-04-28 02:33] LABS: Basophils % 0.4 %; Eosinophils # 0.1 10^3/uL (0.0-0.8); Eosinophils % 1.3 %; Hematocrit 36.6 % (36-47); Lymphocytes # 0.8 10^3/uL (0.8-4.8); Lymphocytes % 13.8 %; Mean Corpuscular HGB Conc 30.9 g/dL (30-55); Mean Corpuscular Hemoglobin 27.4 pg (27-33); Mean Corpuscular Volume 88.8 fl (85-98); Mean Platelet Volume 10.6 fL (7.4-10.4); Monocytes # 0.4 10^3/uL (0.2-0.9); Monocytes % 7.8 %; Neutrophils % 76.3 %; Nucleated Red Blood Cells % 0 %; Platelet Count 318 10^3/cmm (157-399); Red Blood Count 4.12 10^6/uL (3.85-5.65); Red Cell Distribution Width 15.1 % (12.1-15.1)
[2023-04-28 02:46] LABS: INR 1.51 (0.8-1.2)
[2023-04-28 02:51] LABS: Alanine Aminotransferase 6 U/L (0-33); Albumin Level 3.3 g/dL (3.5-5.2); Alkaline Phosphatase 114 U/L (35-105); Anion Gap 14.3 (5-19); Aspartate Amino Transferase 10 U/L (0-32); Blood Urea Nitrogen 26 mg/dL (8-23); Calcium 9.8 mg/dL (8.5-10.5); Carbon Dioxide 29 mmol/L (22-29); Chloride 104 mmol/L (98-107); Globulin 3.4 g/dL (1.3-4.6); Glucose 106 mg/dL (65-115); Magnesium 2.2 mg/dL (1.7-2.3); Osmolality Calculated 301 mOsm/kg (285-295); Phosphorus 3.3 mg/dL (2.5-4.5); Potassium 4.3 mmol/L (3.5-5.1); Sodium 143 mmol/L (136-145); Total Bilirubin 0.3 mg/dL (0.15-1.2); Total Protein 6.7 g/dL (6.6-8.7)
[2023-04-28 02:52] LABS: Troponin 5 6HR 38.47 ng/L (0-10); Troponin 5 6HR Delta 3.47 ng/L (0-12)
--- NOTE | 2023-04-28 08:56 | PC.PHAR ---
[facility] faxing med list 8:15am. contacted to refax 8:56am
--- NOTE | 2023-04-28 11:48 | XRR_ITS ---
PROCEDURE INFORMATION: Exam: XR Pelvis Exam date and time: 04/28/2023 1:22 PM Age: 77 years old Clinical indication: Pelvic pain; Additional info: Surgery TECHNIQUE: Imaging protocol: Radiologic exam of the pelvis. Views: 1 or 2 view. COMPARISON: CR XR hip RT 2-3V wo/w pel* [id number] 04/27/2023 4:13 PM FINDINGS: Bones/joints: A mildly displaced and angulated subcapital fracture of the proximal right femur. Mild degenerative changes of the right hip, marked degenerative changes of the left. Soft tissues: Unremarkable. XR/XR pelvis 1-2V* [id number] IMPRESSION: Fracture of the proximal femur.
--- NOTE | 2023-04-28 11:52 | PC.NURSE ---
Called [facility] to check when hodgson was changed last. Nurse reported it was changed on 04/21/23.
--- NOTE | 2023-04-28 12:54 | P.CONIM_ITS ---
Providers/Reason For Consult 2 Consulting Physician/Specialty*: Orthopedic Surgery Reason for Consult*: Right hip fracture. Attending Physician: Dann Navarro MD Primary Care Provider: Ying Bonilla MD History of Present Illness History of Present Illness Destiny Quintana is a 77 year old female who presented to the emergency department after x-ray was completed at the long term facility where the patient resides ([facility]). Patient had no known falls but was complaining of right hip pain so right hip x-ray was obtained. Patient has resided in the long term facility for 2 months and has not been actively ambulatory recently. There has been no known acute trauma or falls as cause of the injury. Patient does have a medical history of paroxysmal atrial fibrillation, on anticoagulation, diastolic CHF, history of dementia, possible Lewy body dementia. Patient's daughter is at bedside who provides most of the history. Her skilled facility report the patient did take a prescription dose of Eliquis yesterday. Has not taken this today. [facility] in [facility] emergency department. Plan is to take patient for right hip hemiarthroplasty today. Review of Systems 2 General: Reports: ROS unobtainable due to mental status Medications/Allergies Home Medications Medication Instructions Recorded Confirmed Last Taken Type Prevagen 1 cap PO QAM 12/19/22 04/28/23 04/27/23 History magnesium oxide 400 mg PO QAM PRN Muscle Spasm 12/19/22 04/28/23 02/26/23 History polyethylene glycol 3350 17 gram 17 g PO DAILY #10 ea 01/29/23 04/28/23 04/27/23 Rx oral powder packet comp.stocking,knee,long,medium #12 ea 03/11/23 04/28/23 Unknown Rx bisacodyl 10 mg rectal suppository 10 mg AR DAILY PRN Constipation 03/19/23 04/28/23 02/02/23 History (Dulcolax (bisacodyl)) bisacodyl 5 mg tablet,delayed 5 mg PO DAILY PRN Constipation 03/19/23 04/28/23 04/07/23 History release (Dulcolax (bisacodyl)) magnesium hydroxide 400 mg/5 mL 15 ml PO Q72H PRN Constipation 03/19/23 04/28/23 Unknown History oral suspension (Milk of Magnesia) sodium phosphates 19 gram-7 118 ml AR DAILY PRN Constipation 03/19/23 04/28/23 Unknown History gram/118 mL enema (Fleet Enema) acetaminophen 325 mg tablet 650 mg PO Q6H PRN pain or 04/28/23 04/28/23 04/25/23 History increased temp amiodarone 200 mg tablet 200 mg PO DAILY 04/28/23 04/28/23 04/27/23 History apixaban 5 mg tablet (Eliquis) 5 mg PO BID 04/28/23 04/28/23 04/27/23 History furosemide 40 mg tablet 40 mg PO DAILY 04/28/23 04/28/23 04/27/23 History potassium chloride 20 mEq 20 meq PO DAILY 04/28/23 04/28/23 04/27/23 History tablet,extended release(part/cryst) Allergies Allergy/AdvReac Type Severity Reaction Status Date / Time No Known Allergies Allergy Verified 04/02/23 15:11 Current Medications Generic Name Dose Route Start Last Admin Trade Name Freq PRN Reason Stop Dose Admin Amiodarone HCl 200 mg 04/28/23 09:00 04/28/23 11:55 Amiodarone 200 Mg Tablet PO Not Given DAILY CORRINA Pantoprazole Sodium 40 mg 04/27/23 17:53 04/27/23 19:18 Pantoprazole 40 Mg Sdv IVP 40 mg Q24H CORRINA Administration Polyethylene Glycol 17 gm 04/28/23 09:00 04/28/23 09:31 Polyethylene Glycol 3350 Pkt 17 Gm PO Not Given DAILY CORRINA PFSH Acute 2 PFSH: Medical History (Updated 04/28/23 @ 13:11 by FABRIZIO Martínez) Closed displaced fracture of right femoral neck Anemia Paroxysmal atrial fibrillation Dehydration Femoral hernia of left side with gangrene and obstruction Strangulated inguinal hernia Incarcerated inguinal hernia Visual hallucinations Confusion History of CVA (cerebrovascular accident) Memory changes Peripheral arterial disease Lung nodule Pulmonary hypertension Chest pain Ovarian cystic mass Incomplete bladder emptying Palpitations History of hematuria History of bladder cancer Chronic cystitis Surgical History History of resection of small bowel Hx of hernia repair Dr. Reyes 01/23/23 open left femoral hernia repair with mesh, diagnostiv laparascopy, laparotomy with small bowel resection and primary anastomosis History of ear surgery History of lateral meniscus repair of right knee History of cataract removal with insertion of prosthetic lens History of right salpingo-oophorectomy Status post surgical removal and fulguration of bladder neoplasm Family History Father Colon cancer Sister Multiple myeloma Denies family history of Ovarian cancer Diabetes Dementia Heart disease Hypercholesteremia Breast cancer Hypertension Uterine cancer Thyroid disease Stroke Social History Smoking and tobacco/nicotine status: former use of tobacco/nicotine Quit status (tobacco/nicotine): has quit using Year quit tobacco: 2020 Alcohol intake: never Household members: none Number of children: 1 Number of grandchildren: 1 Current occupational status: retired 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 Joyce/Christianity: Holiness Special joyce needs: Yes Details: call coroner for final right Agree to transfusion: Yes Vitals/I&O/Wt Last Vital Signs Temp 98.1 F 04/28/23 11:43 Pulse 63 04/28/23 11:43 Resp 16 04/28/23 11:43 BP 104/70 04/28/23 11:43 Pulse Ox 99 04/28/23 11:43 O2 Del Method Room Air 04/28/23 11:43 04/27/23 04/28/23 04/28/23 22:59 06:59 14:59 Output Total 800 / 800 Balance -800 / -800 Weight last 48 hrs Weight 110 lb 4.8 oz Weight 110 lb 6.4 oz Weight 127 lb Physical Exam 2 Const: COMMON NORMALS: no acute distress EXAM LIMITATIONS: altered mental status ORIENTATION/CONSCIOUSNESS: Yes awake, Yes oriented to person and Yes confused; not oriented to place and not oriented to time HENMT: COMMON NORMALS: normocephalic HEAD & SCALP: normocephalic Eye: COMMON NORMALS: Equal, round and reactive pupils present PUPIL: Yes Equal, round and reactive pupils present Neck/C-Spine: COMMON NORMALS: no JVD Resp: COMMON NORMALS: normal respiratory effort, No retractions, No use of accessory muscles and clear to auscultation bilaterally AUSCULTATION: clear to auscultation bilaterally Cardio: COMMON NORMALS: no JVD, regular rate, regular rhythm, S1 normal heart sound present and S2 normal heart sound present RATE: regular rate RHYTHM: regular rhythm HEART SOUNDS: S1 normal heart sound present and S2 normal heart sound present Extremity: COMMON NORMALS: capillary refill normal (TREMAYNE LE. ), no clubbing, cyanosis or edema, no calf tenderness and no pedal edema RIGHT LOWER EXTREMITY: Yes hip joint Right hip: Yes inspection (Skin intact. No breakdown. Bruising noted. ), Yes ROM (Not assessed due to known fracture. ), Yes neurovascular exam (2+ DP and PT pulses. Rapid cap refill. ) and Yes other (knee flexed and hip is rotated while resting in bed. ) Neuro: SENSORIUM/ORIENTATION: Yes oriented to person, No oriented to place and No oriented to time Urinary Catheter Management: La: Cath Placed During This Visit: no Data 04/28/23 02:24 04/28/23 02:24 Xray Ortho: Radiologist's impression: Right hip 2-3V. FINDINGS: Bones/joints: Acute displaced fracture of the right femoral neck with varus deformity . No dislocation of the femoral head. Soft tissues: Soft tissues demonstrate a prominent amount of stool in the rectum. XR/XR hip RT 2-3V wo/w pel* [id number] IMPRESSION: Acute transversely oriented fracture of the right femoral neck. A&P Assessment and plan (1) Closed displaced fracture of right femoral neck: Destiny Quintana is a 77 year old female who presented to the emergency department for right hip pain and right hip femoral neck fracture. Patient was admitted overnight to the [facility] where she was seen today. Patient does have advanced dementia and is a poor historian. Patient's daughter is her guarantor as well as her historian. There is been no known trauma or cause of this fracture however, there is noted femoral neck fracture with displacement on x- rays at this time. With physical examination, the patient is neurovascularly intact and there is no evidence of compromise. She declines pain and is resting comfortably in her bed. We will plan to take her for surgical intervention for right hip hemiarthroplasty secondary to right femoral neck fracture. Patient will transition back to the floor postoperatively today. Patient is a bleeding risk for surgery as she has taken both doses of her Eliquis in the last 24 hours. No Eliquis has been taken today. Once she is stable orthopedically and medically, she will be discharged back to long term facility, where she currently resides. Patient's daughter has been present for her stay. Consent was obtained through the daughter for the surgery today. We will plan to follow the patient orthopedically while in-house. (2) Congestive heart failure: (3) Diastolic CHF, acute: (4) Paroxysmal atrial fibrillation: Consult Attestations 2 Medical Necessity Statement: Patient will require hospital stay due to right femoral neck fracture and need for surgical fixation. She will need to remain inpatient for postoperative planning, surgical intervention and discharge when stable. Coding Level of Care Code Acute Code for [facility] Fwd Diagnoses Closed displaced fracture of right femoral neck S72.001A Congestive heart failure I50.9 Diastolic CHF, acute I50.31 Paroxysmal atrial fibrillation I48.0
--- NOTE | 2023-04-28 13:00 | P.ANESASSM_ITS ---
Pre-Anesthetic Assessment Height/Weight: Height 1.63 m Weight 50.031 kg Temp Pulse Resp BP Pulse Ox O2 Del Method 98.1 F 63 16 104/70 99 Room Air 04/28/23 11:43 04/28/23 11:43 04/28/23 11:43 04/28/23 11:43 04/28/23 11:43 04/28/23 11:43 Operation Date: 04/28/23 12:55 Proposed Procedures p Hemiarthroplasty Hip(Right) - Marry Gloria MD Familial anesthetic complications: None Was Beta Larry taken within 24 hours: N/A Was Clonidine taken within 24 hours: N/A Last intake: Intake Last Liquid Date 04/27/23 Last Liquid Time 09:00 Last Solid Date 04/27/23 Last Solid Time 09:00 Social No alcohol and No tobacco Exam alert and oriented x 3 Airway Submandibular: within normal limits Cervical ROM: within normal limits Mallampati: Class II Dentition: false History/ROS No significant history except as noted and No significant complaints CV/HEM Atrial Fibrillation and Peripheral Vascular Disease Stress echo 2021: EF 65%, mild AI, mild pulm HTN Musc/[facility] Osteoarthritis/DJD Neuropsych Cerebrovascular Accident Anesthetic Plan ASA status: 3 Anesthesia: General and Regional (specify below) Other: Spinal w GA backup Risk of > 500 ml blood loss (7ml/kg in children): Yes, adequate IV access and fluids planned Medications/Allergies Home Medications Medication Instructions Recorded Confirmed Last Taken Type Prevagen 1 cap PO QAM 12/19/22 04/28/23 04/27/23 History magnesium oxide 400 mg PO QAM PRN Muscle Spasm 12/19/22 04/28/23 02/26/23 History polyethylene glycol 3350 17 gram 17 g PO DAILY #10 ea 01/29/23 04/28/23 04/27/23 Rx oral powder packet comp.stocking,knee,long,medium #12 ea 03/11/23 04/28/23 Unknown Rx bisacodyl 10 mg rectal suppository 10 mg [place] DAILY PRN Constipation 03/19/23 04/28/23 02/02/23 History (Dulcolax (bisacodyl)) bisacodyl 5 mg tablet,delayed 5 mg PO DAILY PRN Constipation 03/19/23 04/28/23 04/07/23 History release (Dulcolax (bisacodyl)) magnesium hydroxide 400 mg/5 mL 15 ml PO Q72H PRN Constipation 03/19/23 04/28/23 Unknown History oral suspension (Milk of Magnesia) sodium phosphates 19 gram-7 118 ml [place] DAILY PRN Constipation 03/19/23 04/28/23 Unknown History gram/118 mL enema (Fleet Enema) acetaminophen 325 mg tablet 650 mg PO Q6H PRN pain or 04/28/23 04/28/23 04/25/23 History increased temp amiodarone 200 mg tablet 200 mg PO DAILY 04/28/23 04/28/23 04/27/23 History apixaban 5 mg tablet (Eliquis) 5 mg PO BID 04/28/23 04/28/23 04/27/23 History furosemide 40 mg tablet 40 mg PO DAILY 04/28/23 04/28/23 04/27/23 History potassium chloride 20 mEq 20 meq PO DAILY 04/28/23 04/28/23 04/27/23 History tablet,extended release(part/cryst) Allergies Allergy/AdvReac Type Severity Reaction Status Date / Time No Known Allergies Allergy Verified 04/02/23 15:11 Current Medications Generic Name Dose Route Start Last Admin Trade Name Freq PRN Reason Stop Dose Admin Amiodarone HCl 200 mg 04/28/23 09:00 04/28/23 11:55 Amiodarone 200 Mg Tablet PO Not Given DAILY CORRINA Pantoprazole Sodium 40 mg 04/27/23 17:53 04/27/23 19:18 Pantoprazole 40 Mg Sdv IVP 40 mg Q24H CORRINA Administration Polyethylene Glycol 17 gm 04/28/23 09:00 04/28/23 09:31 Polyethylene Glycol 3350 Pkt 17 Gm PO Not Given DAILY CORRINA PFSH Anesthesia Medical History Anemia Paroxysmal atrial fibrillation Dehydration Femoral hernia of left side with gangrene and obstruction Strangulated inguinal hernia Incarcerated inguinal hernia Visual hallucinations Confusion History of CVA (cerebrovascular accident) Memory changes Peripheral arterial disease Lung nodule Pulmonary hypertension Chest pain Ovarian cystic mass Incomplete bladder emptying Palpitations History of hematuria History of bladder cancer Chronic cystitis Surgical History History of resection of small bowel Hx of hernia repair Dr. Reyes 01/23/23 open left femoral hernia repair with mesh, diagnostiv laparascopy, laparotomy with small bowel resection and primary anastomosis History of ear surgery History of lateral meniscus repair of right knee History of cataract removal with insertion of prosthetic lens History of right salpingo-oophorectomy Status post surgical removal and fulguration of bladder neoplasm Family History Father Colon cancer Sister Multiple myeloma Denies family history of Ovarian cancer Diabetes Dementia Heart disease Hypercholesteremia Breast cancer Hypertension Uterine cancer Thyroid disease Stroke Social History Smoking and tobacco/nicotine status: former use of tobacco/nicotine Quit status (tobacco/nicotine): has quit using Year quit tobacco: 2020 Alcohol intake: never Household members: none Number of children: 1 Number of grandchildren: 1 Current occupational status: retired 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 Joyce/Quaker: Mandaen Special joyce needs: Yes Details: call emergency dispatch operator for final right Agree to transfusion: Yes Data Anesthesia 04/28/23 02:24 04/28/23 02:24 Short CBC 04/27/23 04/28/23 Range/Units 16:42 02:24 WBC 6.14 5.50 (3.29-11.43) 10^3/uL Hgb 11.90 11.30 (11.27-16.99) g/dL Hct 38.8 36.6 (36-47) % MCV 89.4 88.8 (85-98) fl Plt Count 311 318 (157-399) 10^3/cmm Neut % (Auto) 76.8 76.3 % Neut # (Auto) 4.71 4.20 (1.8-7.7) 10^3/uL BMP 04/27/23 04/28/23 16:42 02:24 Sodium 140 143 Potassium 4.6 4.3 Chloride 101 104 Carbon Dioxide 26 29 BUN 25 H 26 H Creatinine 0.9 0.8 Glucose 107 106 Calcium 9.6 9.8 Cardiac Enzymes 04/27/23 04/27/23 04/27/23 Range/Units 19:18 22:12 22:54 Troponin T Baseline 35 H (0-10) ng/L Troponin T 120 Minute Cancelled 29.46 H Delta Troponin T Cancelled -5.54 L Troponin T Hi Sens 6Hr (0-10) ng/L Troponin T Hi Sens 6Hr Delta (0-12) ng/L NT-Pro-B Natriuret Pep 280 (0-450) pg/mL 04/28/23 Range/Units 02:24 Troponin T Baseline (0-10) ng/L Troponin T 120 Minute Delta Troponin T Troponin T Hi Sens 6Hr 38.47 H (0-10) ng/L Troponin T Hi Sens 6Hr Delta 3.47 (0-12) ng/L NT-Pro-B Natriuret Pep (0-450) pg/mL Liver Function 04/27/23 04/28/23 Range/Units 16:42 02:24 Total Bilirubin 0.2 0.3 (0.15-1.2) mg/dL AST 11 10 (0-32) U/L ALT 7 6 (0-33) U/L Alkaline Phosphatase 118 H 114 H (35-105) U/L Albumin 3.6 3.3 L (3.5-5.2) g/dL Coags 04/27/23 04/28/23 16:42 02:24 PT 20.00 H 18.70 H INR 1.64 H 1.51 H Cardiac Studies: 2 Echocardiogram 03/19/23 Sestamibi Stress Test (Cardiology) 11/21
[2023-04-28] MEDS: sodium chloride 0.9% 1,000 ML 30 ML IV (14:00)
[2023-04-28] MEDS: acetaminophen 1,000 MG/100 ML PIGGYBACK 400 MG IV (15:04)
--- NOTE | 2023-04-28 15:09 | P.PN_ITS ---
Subjective 2 Subjective: Patient was seen this morning, she is alert to person, not to place, not to time, Vitals/I&O/Wt Last Vital Signs Temp 97.1 F L 04/28/23 13:56 Pulse 58 L 04/28/23 13:56 Resp 16 04/28/23 13:56 BP 120/66 04/28/23 13:56 Pulse Ox 96 04/28/23 13:56 O2 Del Method Room Air 04/28/23 13:56 04/28/23 04/28/23 04/28/23 06:59 14:59 22:59 Output Total 800 / 800 Balance -800 / -800 Weight last 48 hrs Weight 50.031 kg Weight 50.077 kg Weight 57.606 kg Physical Exam 2 Const: COMMON NORMALS: no acute distress Resp: COMMON NORMALS: normal respiratory effort, No retractions, No use of accessory muscles and clear to auscultation bilaterally AUSCULTATION: clear to auscultation bilaterally Cardio: COMMON NORMALS: regular rate, regular rhythm, S1 normal heart sound present and S2 normal heart sound present RATE: regular rate RHYTHM: r egular rhythm HEART SOUNDS: S1 normal heart sound present and S2 normal heart sound present GI: COMMON NORMALS: Normal to inspection, nondistended, normoactive bowel sounds present and non-tender Extremity: COMMON NORMALS: no pedal edema Urinary Catheter Management: La: Cath Placed During This Visit: no Data 04/28/23 02:24 04/28/23 02:24 A&P Assessment and plan (1) Closed fracture of right hip: Qualifiers: Encounter type: initial encounter Qualified Code(s): S72.001A - Fracture of unspecified part of neck of right femur, initial encounter for closed fracture Plan Right hip fracture ? Last dose of Eliquis was this morning, will continue to hold, INR 1.51 ? Pain control morphine 2 mg IV push every 4 hours -Hold anticoagulation ? SCDs for DVT prophylaxis, ? General surgery consulted History of chronic urinary retention - history of UTI, history of enterococcus uti - La catheter placed - repeat UA, still not collected History of atrial fibrillation, ? Will continue to monitor closely ?Eliquis on hold Diastolic CHF -not in exacerbation ? Monitor for fluid overload history of dementia - according to haja currently at bedside Attestations 2 Medical Necessity Statement*: Patient requires hospitalization for right hip fracture, Diagnoses Closed fracture of right hip S72.001A Encounter type: initial encounter
--- NOTE | 2023-04-28 15:11 | W.PM.OPSUD ---
Surgery/Procedure H&P Update DATE OF PROCEDURE: April 28, 2023 DATE H&P PERFORMED: 04/28/22 H&P UPDATE INFORMATION: I have reviewed H&P completed within last 30 days, I have examined patient prior to procedure, No changes to prior documentation and H&P is in [facility] [place] [facility] EMR on date indicated CHANGES TO PREVIOUS DOCUMENTATION: X-rays reviewed and case discussed with patient's daughter. Consents signed. PLANNED PROCEDURE: Operation Date: 04/28/23 12:55 Proposed Procedures p Hemiarthroplasty Hip(Right) - Marry Gloria MD Related Problem List Diagnoses (1) Closed displaced fracture of right femoral neck:
[2023-04-28] MEDS: ceFAZolin 2,000 MG in sodium chloride 0.9% (plus) 50 ML 100 MG IV (15:15)
--- NOTE | 2023-04-28 15:16 | PC.NURSE ---
Patient daughter Pearl Shearer verbalized via phone with this conventional underwriter and Dr. Gloria for consent to proceed with Right Hip surgery, Dr. Baldwin Anesthesiologist discussed with pt daughter who also this conventional underwriter witnessed consent for care,
[2023-04-28] MEDS: tranexamic acid 1,000 mg/10mL SDV 1000 MG IV (15:52)
[2023-04-28] MEDS: ceFAZolin 1,000 mg SDV 1000 MG IRRIGATION (16:15)
[2023-04-28] MEDS: vancomycin 1,000 MG SDV 1000 MG XX (16:17)
--- NOTE | 2023-04-28 16:53 | PC.NURSE ---
Patient's dentures removed after arrival into OR room. Dentures taken back to OPS and given to TERESA Darling.
--- NOTE | 2023-04-28 17:26 | XRR_ITS ---
PROCEDURE INFORMATION: Exam: XR Pelvis Exam date and time: 04/28/2023 5:34 PM Age: 77 years old Clinical indication: Device placement; Other: Right gamma nail; Additional info: S/P judah, low ap pelvis TECHNIQUE: Imaging protocol: Radiologic exam of the pelvis. Views: 1 or 2 view. COMPARISON: CR XR pelvis 1-2V* [id number] 04/28/2023 1:22 PM FINDINGS: Bones/joints: Status post right total hip arthroplasty. The hardware is intact. There are no fractures noted. There is air within the hip joint consistent with the recent surgery. there is severe osteoarthritic disease of the left hip joint. Soft tissues: Unremarkable. XR/XR pelvis 1-2V* [id number] IMPRESSION: Post right total hip arthroplasty.
--- NOTE | 2023-04-28 17:30 | P.OP_ITS ---
Operative Report Date of procedure: April 28, 2023 Pre-op diagnosis: Right subcapital hip fracture with 100% displacement Post-op diagnosis: Right subcapital hip fracture with 100% displacement, subacute with early nonunion Post-op findings: Subacute fracture with fibrous tissue, significant shortening, and obvious nonunion Procedure done: Right bipolar hip arthroplasty with takedown of nonunion Implants: The [place] Accolade II total hip system with a size six 127 degree neck angle hip stem, a size 48 mm outer diameter with 28 mm inner diameter universal head bipolar component and a size 28 mm x +0 mm offset femoral head Specimens removed/disposition: Femoral head, disposed of Pathology: None Surgeon: Marry Gloria MD Gastrointestinal Technician: Fidelina Orozco, nurse practitioner, services were required for exposure, retraction, implant placement, and closure. Anesthesia: General (Per LMA, ASA 3) Estimated blood loss (mL): 100 IV fluids (mL): 600 Urine output (mL): 200 Complications: None Findings: Nonunion right subcapital hip fracture with significant shortening and fibrous tissue formation. Following implantation, the hip was stable at 90 degrees of flexion with 30 degrees of adduction and 80 degrees of internal rotation. It was stable to external rotation and to toe hang. Leg lengths were felt to be restored. Brief History: Destiny Quintana is a 77 year old female who presented to the emergency department after x-ray was completed at the senior care facility where the patient resides ([facility] Patient had no known falls but was complaining of right hip pain so right hip x-ray was obtained. Patient has resided in the senior care facility for 2 months and has not been actively ambulatory recently. There has been no known acute trauma or falls as cause of the injury. Patient does have a medical history of paroxysmal atrial fibrillation, on anticoagulation, diastolic CHF, history of dementia, possible Lewy body dementia. Patient's daughter is at bedside who provides most of the history. Her skilled facility report the patient did take a prescription dose of Eliquis yesterday. She has not taken this today. Patient was admitted to [facility] after evaluation in the emergency department. Plan is to take patient for right hip hemiarthroplasty today. Surgical procedure as well as risks and complications were discussed with the patient's daughter, she consented for the surgical procedure secondary to the mother's dementia. Procedure: The patient was brought to the operating theater, and after undergoing adequate general anesthesia per LMA, she was transferred to the operating room table. The patient was placed in the full lateral position and held in place with the pegboard. Patient's right lower extremity was draped free and was subsequently p repped and further draped free. A surgical pause was performed prior to commencement of the surgical procedure. During the surgical pause, we confirmed the site and side of surgery as well as availability of equipment. Additionally, we confirmed preoperative surgical markings. X-rays are also reviewed during this time. Following the surgical pause, an incision was made centering over the greater trochanter continuing proximally and distally as necessary to allow access to the hip joint. Dissection continues to skin and soft tissue using scalpel. Hemostasis was obtained using electrocautery. Tensor fascia roldan was identified and incised longitudinally. Sciatic nerve was identified and protected throughout the surgical procedure. A Charnley U retractor was placed with care being taken to protect the sciatic nerve during placement. There was deformity of the proximal femur consistent with subacute fracture and early nonunion. There was significant fibrous and soft tissue surrounding the femoral head and also within the acetabulum. This was also consistent with subacute nonunion. The hip was internally rotated. Piriformis muscle was then identified, tagged, and subsequently incised from the posterior aspect of the hip joint. The remaining short external rotators were also incised. These were then elevated off the capsule and the capsule was entered in a T-type fashion. Each side of the capsule was then tagged. The proximal femur was brought into an appropriate position, and the femoral neck osteotomy was accomplished. This was in appropriate position for placement of the prosthetic component. Femoral head was then removed from the acetabulum utilizing a corkscrew. It was subsequently measured. The appropriate size head trial was chosen. This was a size 48 mm. A 47 mm was also trialed but seemed to small. Therefore size 48 mm outer diameter universal head bipolar component was the chosen size for final implantation. Femoral brake adjuster was then placed and attention was directed to the proximal femur. Initially, the proximal femur was addressed with a box chisel, and this was followed by a canal finder and subsequently broaches. The hip was broached to a size 6 Accolade II hip stem. Trial reduction was accomplished with a 48 mm universal head component with a 28 mm inner diameter. Into this was placed the 28 mm outer diameter +0 mm offset metal head. With this, the above-noted stabilities were accomplished. This was felt to be appropriate and therefore trial components were removed and the hip was irrigated. Acetabulum was evaluated for any loose bodies or other soft tissues requiring resection. We then prepared for implantation. The size 6 Accolade two 127 degree neck angle hip stem was impacted into position. Onto this was placed the 48 mm outer diameter by 28 mm inner diameter universal head bipolar component assembled with the 28 mm outer diameter with a +0 mm offset metal femoral head. This was placed onto the trunnion of the femoral component. It was impacted into position and pulled upon to assure that there was no dissociation. Once again the hip was irrigated, suctioned dry and reduced. We then irrigated the hip further with 20 mL of Betadine mixed into 500 mL of normal saline. This was allowed to remain in the wound for approximately 3 minutes. It was then suctioned dry and irrigated with normal saline. This was suctioned dry again and closure was accomplished with 0 Vicryl in the capsular tissues followed by reattachment of the piriformis with 0 Vicryl. Additionally, the tensor was closed with 0 Vicryl in an interrupted fashion. Subcutaneous tissues were closed with a combination of 0 Vicryl and 2-0 Monocryl. Skin was closed with 3-0 Monocryl. This was followed by Dermabond and Steri-Strips. A sterile dressing was placed consisting of Tegaderm. The patient was returned to the Recovery Room in satisfactory condition. There were no complications. The patient will be discharged to the floor for postoperative rehabilitation and pain management. Related Problem List Diagnoses (1) Closed displaced fracture of right femoral neck:
--- NOTE | 2023-04-28 17:30 | ANE.PACU2 ---
Inpatient post-anesthesia follow up: Airway intact: Yes Vital signs: Temperature 97.1 F Pulse Rate 58 Respiratory Rate 16 Blood Pressure 120/66 Pulse Oximetry 96 Oxygen Delivery Me thod Room Air Oxygen Flow Rate 6 Fraction of Inspir ed Oxygen Hydration adequate: Yes Nausea and vomiting: No Pain level: Other Pain level: Dementia, but vitals wnl and resting quietly Mental status: Baseline
[2023-04-28] MEDS: mupirocin oint 22 gm 1 APPLIC NASAL (18:22)
[2023-04-28] MEDS: iron polysaccharide complex 150 mg Capsule PO (18:22)
[2023-04-28] MEDS: pantoprazole 40 mg SDV IVP (18:22)
[2023-04-28] MEDS: gabapentin 300 mg Capsule 600 MG PO (18:23)
[2023-04-28] MEDS: sennosides-docusate Tablet 2 TAB PO (18:23)
[2023-04-28] MEDS: morphine 4 mg/mL SDV 1 mL 2 MG IVP (18:23)
[2023-04-28] MEDS: calcium carbonate 500 mg Chew Tablet 1000 MG PO (18:23)
[2023-04-28] MEDS: CELEcoxib 200 mg Capsule PO (22:13)
[2023-04-29] VITALS (13 sets, daily range): BP systolic 82–101; BP diastolic 44–56; PULSE 50–78; RESP 15–18; TEMP 36.3–36.7; O2SAT 90–100
[2023-04-29] MEDS: tranexamic acid 1,000 MG/100 ML PREMIX 600 MG IV (00:27)
[2023-04-29] MEDS: ceFAZolin 2,000 MG in sodium chloride 0.9% (plus) 50 ML 100 MG IV ×3 (00:30→14:58)
[2023-04-29] MEDS: acetaminophen 1,000 MG/100 ML PIGGYBACK 400 MG IV ×3 (00:34→14:12)
[2023-04-29 04:24] LABS: Basophils % 0.3 %; Eosinophils % 0.6 %; Hematocrit 31.6 % (36-47); Lymphocytes # 0.6 10^3/uL (0.8-4.8); Lymphocytes % 7.9 %; Mean Corpuscular HGB Conc 30.7 g/dL (30-55); Mean Corpuscular Hemoglobin 27.4 pg (27-33); Mean Corpuscular Volume 89.3 fl (85-98); Mean Platelet Volume 10.6 fL (7.4-10.4); Monocytes # 0.4 10^3/uL (0.2-0.9); Monocytes % 5.5 %; Neutrophils # 6.04 10^3/uL (1.8-7.7); Neutrophils % 85.3 %; Nucleated Red Blood Cells % 0 %; Platelet Count 269 10^3/cmm (157-399); Red Blood Count 3.54 10^6/uL (3.85-5.65); Red Cell Distribution Width 15.1 % (12.1-15.1); White Blood Count 7.08 10^3/uL (3.29-11.43)
[2023-04-29] MEDS: sodium chloride 0.9% 500 ML 999 ML IV (04:40)
[2023-04-29 04:52] LABS: INR 1.44 (0.8-1.2)
[2023-04-29 04:59] LABS: Alanine Aminotransferase 9 U/L (0-33); Albumin Level 2.9 g/dL (3.5-5.2); Alkaline Phosphatase 89 U/L (35-105); Chloride 110 mmol/L (98-107); Potassium 3.9 mmol/L (3.5-5.1); Sodium 142 mmol/L (136-145)
[2023-04-29 05:08] LABS: Anion Gap 10.9 (5-19); Aspartate Amino Transferase 16 U/L (0-32); Blood Urea Nitrogen 23 mg/dL (8-23); Calcium 8.9 mg/dL (8.5-10.5); Carbon Dioxide 26 mmol/L (22-29); Globulin 2.6 g/dL (1.3-4.6); Glucose 88 mg/dL (65-115); Magnesium 1.9 mg/dL (1.7-2.3); Osmolality Calculated 295 mOsm/kg (285-295); Phosphorus 2.8 mg/dL (2.5-4.5); Total Bilirubin 0.3 mg/dL (0.15-1.2); Total Protein 5.6 g/dL (6.6-8.7)
[2023-04-29] MEDS: sennosides-docusate Tablet 2 TAB PO ×2 (08:27→18:22)
[2023-04-29] MEDS: cholecalciferol (vitamin D3) 1,000 unit Tablet 1000 UNIT PO (08:27)
[2023-04-29] MEDS: amiodarone 200 mg Tablet PO (08:27)
[2023-04-29] MEDS: calcium carbonate 500 mg Chew Tablet 1000 MG PO (08:27)
[2023-04-29] MEDS: iron polysaccharide complex 150 mg Capsule PO (08:28)
[2023-04-29] MEDS: multivitamin therapeutic Tablet 1 TAB PO (08:28)
[2023-04-29] MEDS: mupirocin oint 22 gm 1 APPLIC NASAL ×2 (08:28→18:22)
[2023-04-29] MEDS: chlorhexidine gluconate 0.12% Btl 473 mL 30 ML MUCOUS MEM ×2 (08:28→12:34)
[2023-04-29] MEDS: polyethylene glycol 3350 Pkt 17 gm PO (08:28)
[2023-04-29] MEDS: CELEcoxib 200 mg Capsule PO (10:10)
--- NOTE | 2023-04-29 11:34 | PC.OT ---
OT EVALUATION ATTEMPTED. PATIENT SLEEPING SOUNDLY AND DOES NOT AWAKEN TO VOICE. WILL ATTEMPT EVALUATION AGAIN AT A LATER TIME.
[2023-04-29 11:46] LABS: SARS Covid-2 Antigen negative (Negative)
--- NOTE | 2023-04-29 13:10 | P.PN_ITS ---
Subjective 2 Subjective: Patient was seen this afternoon, and she is less responsive. This appears to be her baseline Medications: Reviewed: Yes Vitals/I&O/Wt Last Vital Signs Temp 97.7 F 04/29/23 07:59 Pulse 50 L 04/29/23 08:00 Resp 18 04/29/23 08:00 BP 94/50 04/29/23 07:59 Pulse Ox 96 04/29/23 08:00 O2 Del Method Room Air 04/29/23 08:00 O2 Flow Rate 6 04/28/23 17:20 04/28/23 04/29/23 04/29/23 22:59 06:59 14:59 Intake Total 1250 / 1250 950 / 2200 210 / 210 Output Total 500 / 500 450 / 950 Balance 750 / 750 500 / 1250 210 / 210 Weight last 48 hrs Weight 131 lb 3 oz Weight 110 lb 4.8 oz Weight 110 lb 6.4 oz Weight 127 lb Physical Exam 2 Const: COMMON NORMALS: no acute distress, average body habitus, patient oriented x3, no limitations, healthy appearing, alert and well nourished G ENERAL APPEARANCE: cooperative; not anxious and not combative ORIENTATION/CONSCIOUSNESS: Yes awake, Yes oriented to person, Yes oriented to place and Yes oriented to time HENMT: COMMON NORMALS: normocephalic and atraumatic HEAD & SCALP: n ormocephalic and atraumatic Eye: GENERAL EYE: appearance normal, both eyes and all related structures E YELID: eyelids normal Chest: COMMONS NORMALS: normal inspection of the chest Resp: COMMON NORMALS: normal respiratory effort EFFORT & INSPECTION: Yes able to speak in complete sentences and Yes symmetric chest movement Extremity: RIGHT LOWER EXTREMITY: Yes hip joint (Dressing dry and intact) Neuro: COMMON NORMALS: patient oriented x3 SENSORIUM/ORIENTATION: Yes alert, Yes oriented to person, Yes oriented to place and Yes oriented to time SPEECH: speech normal GAIT: Yes Normal gait present Psych: ATTITUDE: Yes calm and Yes engaged ACTIVITY/MOTOR BEHAVIOR: Yes appropriate eye contact ATTENTION/CONCENTRATION: Yes attention grossly intact MEMORY/COGNITION: Yes memory grossly intact Skin: COMMON NORMALS: no rashes or lesions noted and turgor normal; negative for no jaundice GENERAL SKIN EXAM: no rashes or lesions noted, turgor normal and no jaundice Urinary Catheter Management: La: Cath Placed During This Visit: yes Reason for Continuing Indwelling Catheter: Chronic Indwelling Urinary Catheter on Admission Urinary Catheter Date of Insertion: 04/21/23 Data 04/29/23 04:18 04/29/23 04:18 A&P Assessment and plan (1) Closed displaced fracture of right femoral neck: Destiny Quintana is a 77 year old female who presented to the emergency department for right hip pain and right hip femoral neck fracture. Patient underwent bipolar hip arthroplasty, and she tolerated this well. She is seen today on postop day 1. She is sleeping and not easily arousable. Per nursing, she will respond to commands. She had limited physical therapy. As this appeared to be a nonunion, it is likely that the patient's recent inability to ambulate and get around perhaps was related to pain due to this fracture. intermediate would benefit the patient at the time of discharge to see if she can become more functional now that this chronic fracture has been addressed. Attestations 2 Medical Necessity Statement*: Ongoing care following bipolar hip arthroplasty Coding Level of Care Code Acute Code for [facility] Fwd Diagnoses Closed displaced fracture of right femoral neck S72.001A
--- NOTE | 2023-04-29 13:48 | P.PN_ITS ---
Subjective 2 Subjective: Patient was seen this morning, she is less responsive this morning, she does awaken to sternal rub, opens her eyes, but falls back asleep, blood pressures have been soft throughout the night Vitals/I&O/Wt Last Vital Signs Temp 98.1 F 04/29/23 12:00 Pulse 54 L 04/29/23 12:00 Resp 15 04/29/23 12:00 BP 95/56 04/29/23 12:00 Pulse Ox 100 04/29/23 12:00 O2 Del Method Room Air 04/29/23 08:00 O2 Flow Rate 6 04/28/23 17:20 04/28/23 04/29/23 04/29/23 22:59 06:59 14:59 Intake Total 1250 / 1250 950 / 2200 210 / 210 Output Total 500 / 500 450 / 950 Balance 750 / 750 500 / 1250 210 / 210 Weight last 48 hrs Weight 59.506 kg Weight 50.031 kg Weight 50.077 kg Weight 57.606 kg Physical Exam 2 Const: COMMON NORMALS: no acute distress EXAM LIMITATIONS: altered mental status ORIENTATION/CONSCIOUSNESS: Yes awake; not oriented to person, not oriented to place and not oriented to time Resp: COMMON NORMALS: normal respiratory effort, No retractions, No use of accessory muscles and clear to auscultation bilaterally AUSCULTATION: clear to auscultation bilaterally Cardio: COMMON NORMALS: regular rate, regular rhythm, S1 normal heart sound present and S2 normal heart sound present RATE: regular rate RHYTHM: r egular rhythm HEART SOUNDS: S1 normal heart sound present and S2 normal heart sound present GI: COMMON NORMALS: Normal to inspection, nondistended, normoactive bowel sounds present and non-tender Extremity: COMMON NORMALS: no pedal edema Neuro: SENSORIUM/ORIENTATION: No oriented to person, No oriented to place and No oriented to time Psych: COMMON NORMALS: mental status grossly normal Urinary Catheter Management: La: Cath Placed During This Visit: yes Reason for Continuing Indwelling Catheter: Chronic Indwelling Urinary Catheter on Admission Urinary Catheter Date of Insertion: 04/21/23 Data 04/29/23 04:18 04/29/23 04:18 A&P Assessment and plan (1) Closed fracture of right hip: Qualifiers: Encounter type: initial encounter Qualified Code(s): S72.001A - Fracture of unspecified part of neck of right femur, initial encounter for closed fracture Plan Right hip fracture -Status post surgical invention by Dr. Eaton ? will discuss with ortho whrn to resume eliquis ? Pain control morphine 2 mg IV push every 4 hours ? SCDs for DVT prophylaxis, ? General surgery consulted History of chronic urinary retention - history of UTI, history of enterococcus uti - La catheter placed - repeat UA, still not collected History of atrial fibrillation, ? Will continue to monitor closely ?Eliquis on hold Diastolic CHF -not in exacerbation ? Monitor for fluid overload history of dementia - according to haja currently at bedside Attestations 2 Medical Necessity Statement*: Patient requires hospitalization for right hip fracture Diagnoses Closed fracture of right hip S72.001A Encounter type: initial encounter
[2023-04-29 14:24] LABS: Add Urine Microscopic? YES; Bilirubin Urine Neg (Negative); Blood Urine Neg (Negative); Glucose Urine UA Norm (Normal); Ketones Urine 2+ (Negative); Leukocyte Esterase Urine Negative (Negative); Nitrate Urine Negative (Negative); Protein Urine Trace (Negative); Specific Gravity, Urine 1.025 (1.005-1.030); Urine Appearance Clear (CLEAR); Urine Color Yellow (Yellow); Urobilinogen Urine Norm (Negative); pH Urine 5 (5-7)
[2023-04-29 14:31] LABS: Add Urine Culture? No; Bacteria Urine TRACE /hpf; Hyaline Casts Urine 0-4 /lpf; Mucus Urine TRACE /hpf; RBC Urine 0-4 /hpf (0-2); Squamous Epithelial Cell Urine 0-4 /hpf (0-5); WBC Urine 0-4 /hpf (0-5)
--- NOTE | 2023-04-29 15:30 | PC.OT ---
OT TREATMENT ATTEMPTED AGAIN THIS AFTERNOON; PATIENT IS AWAKE BUT CONFUSED AND UNABLE TO CARRY A CONVERSATION. BP IS 87/50. WILL HOLD EVALUATION TODAY DUE TO LOW BP AND CONFUSION AND ATTEMPT AGAIN TOMORROW.
[2023-04-29] MEDS: pantoprazole 40 mg SDV IVP (18:22)
--- NOTE | 2023-04-29 18:36 | PC.NURSE ---
BP 70/42. Pt is very lethargic and will not awaken to take any medications. Pt placed in Trendelenburg. New orders received for NS 250ml bolus. Hold PO meds until pt more awake. STAT CBC and BMP.
[2023-04-29] MEDS: sodium chloride 0.9% 250 ML IV (18:43)
[2023-04-29 19:15] LABS: Basophils % 0.3 %; Eosinophils # 0.1 10^3/uL (0.0-0.8); Eosinophils % 0.8 %; Hematocrit 29.4 % (36-47); Lymphocytes # 0.6 10^3/uL (0.8-4.8); Lymphocytes % 8.3 %; Mean Corpuscular HGB Conc 30.6 g/dL (30-55); Mean Corpuscular Hemoglobin 27.9 pg (27-33); Mean Platelet Volume 11.2 fL (7.4-10.4); Monocytes # 0.5 10^3/uL (0.2-0.9); Monocytes % 6.2 %; Neutrophils # 6.15 10^3/uL (1.8-7.7); Neutrophils % 84.1 %; Nucleated Red Blood Cells % 0 %; Platelet Count 244 10^3/cmm (157-399); Red Blood Count 3.23 10^6/uL (3.85-5.65); Red Cell Distribution Width 15.2 % (12.1-15.1); White Blood Count 7.31 10^3/uL (3.29-11.43)
[2023-04-29 19:37] LABS: Anion Gap 10.6 (5-19); Blood Urea Nitrogen 25 mg/dL (8-23); Calcium 8.4 mg/dL (8.5-10.5); Carbon Dioxide 25 mmol/L (22-29); Chloride 109 mmol/L (98-107); Glucose 149 mg/dL (65-115); Osmolality Calculated 299 mOsm/kg (285-295); Potassium 3.6 mmol/L (3.5-5.1); Sodium 141 mmol/L (136-145)
[2023-04-30] VITALS (8 sets, daily range): BP systolic 74–113; BP diastolic 41–67; PULSE 53–63; RESP 16–17; TEMP 36.5–36.7; O2SAT 95–99
[2023-04-30] MEDS: sodium chloride 0.9% 500 ML 999 ML IV (04:23)
[2023-04-30] MEDS: apixaban 5 mg Tablet PO ×2 (05:34→17:35)
[2023-04-30 06:05] LABS: Basophils % 0.3 %; Eosinophils # 0.1 10^3/uL (0.0-0.8); Eosinophils % 1.3 %; Hematocrit 29.6 % (36-47); Lymphocytes # 0.5 10^3/uL (0.8-4.8); Lymphocytes % 7.2 %; Mean Corpuscular HGB Conc 30.4 g/dL (30-55); Mean Corpuscular Hemoglobin 27.2 pg (27-33); Mean Corpuscular Volume 89.4 fl (85-98); Monocytes # 0.5 10^3/uL (0.2-0.9); Monocytes % 7.6 %; Neutrophils # 5.29 10^3/uL (1.8-7.7); Neutrophils % 83.3 %; Nucleated Red Blood Cells % 0 %; Platelet Count 246 10^3/cmm (157-399); Red Blood Count 3.31 10^6/uL (3.85-5.65); Red Cell Distribution Width 15.3 % (12.1-15.1); White Blood Count 6.35 10^3/uL (3.29-11.43)
[2023-04-30 06:20] LABS: INR 1.65 (0.8-1.2)
[2023-04-30 06:31] LABS: Alanine Aminotransferase < 5 U/L (0-33); Albumin Level 2.7 g/dL (3.5-5.2); Alkaline Phosphatase 85 U/L (35-105); Anion Gap 10.6 (5-19); Aspartate Amino Transferase 17 U/L (0-32); Blood Urea Nitrogen 21 mg/dL (8-23); Calcium 8.7 mg/dL (8.5-10.5); Carbon Dioxide 24 mmol/L (22-29); Chloride 112 mmol/L (98-107); Globulin 2.7 g/dL (1.3-4.6); Glucose 122 mg/dL (65-115); Magnesium 2.3 mg/dL (1.7-2.3); Osmolality Calculated 300 mOsm/kg (285-295); Potassium 3.6 mmol/L (3.5-5.1); Sodium 143 mmol/L (136-145); Total Bilirubin 0.3 mg/dL (0.15-1.2); Total Protein 5.4 g/dL (6.6-8.7)
[2023-04-30] MEDS: sennosides-docusate Tablet 2 TAB PO ×2 (08:30→17:34)
[2023-04-30] MEDS: calcium carbonate 500 mg Chew Tablet 1000 MG PO ×2 (08:30→17:34)
[2023-04-30] MEDS: cholecalciferol (vitamin D3) 1,000 unit Tablet 1000 UNIT PO (08:30)
[2023-04-30] MEDS: amiodarone 200 mg Tablet PO (08:30)
[2023-04-30] MEDS: polyethylene glycol 3350 Pkt 17 gm PO (08:30)
[2023-04-30] MEDS: multivitamin therapeutic Tablet 1 TAB PO (08:30)
[2023-04-30] MEDS: iron polysaccharide complex 150 mg Capsule PO ×2 (08:30→17:35)
[2023-04-30] MEDS: midodrine 5 mg TABLET PO ×3 (08:31→20:10)
[2023-04-30] MEDS: chlorhexidine gluconate 0.12% Btl 473 mL 30 ML MUCOUS MEM ×4 (08:31→20:11)
[2023-04-30] MEDS: mupirocin oint 22 gm 1 APPLIC NASAL ×2 (08:31→17:35)
[2023-04-30 09:18] LABS: Cortisol Random 16.37 ug/dL (2.47-19.5)
--- NOTE | 2023-04-30 15:12 | P.PN_ITS ---
Subjective 2 Subjective: Patient was seen this morning, she is alert to person, not place, to time she is sitting up in a chair, her blood pressures are better Vitals/I&O/Wt Last Vital Signs Temp 98.0 F 04/30/23 11:43 Pulse 63 04/30/23 11:43 Resp 16 04/30/23 11:43 BP 113/67 04/30/23 11:43 Pulse Ox 96 04/30/23 11:43 O2 Del Method Room Air 04/30/23 11:43 O2 Flow Rate 6 04/28/23 17:20 04/30/23 04/30/23 04/30/23 06:59 14:59 22:59 Intake Total 500 / 1210 180 / 180 Output Total 200 / 800 0 / 0 Balance 300 / 410 180 / 180 Weight last 48 hrs Weight 59.959 kg Weight 59.506 kg Physical Exam 2 Const: COMMON NORMALS: no acute distress ORIENTATION/CONSCIOUSNESS: Yes awake and Yes oriented to person; not oriented to place and not oriented to time Resp: COMMON NORMALS: normal respiratory effort, No retractions, No use of accessory muscles and clear to auscultation bilaterally AUSCULTATION: clear to auscultation bilaterally Cardio: COMMON NORMALS: regular rate, regular rhythm, S1 normal heart sound present and S2 normal heart sound present RATE: regular rate RHYTHM: r egular rhythm HEART SOUNDS: S1 normal heart sound present and S2 normal heart sound present GI: COMMON NORMALS: Normal to inspection, nondistended, normoactive bowel sounds present and non-tender Extremity: COMMON NORMALS: no pedal edema Neuro: SENSORIUM/ORIENTATION: Yes oriented to person, No oriented to place and No oriented to time Urinary Catheter Management: La: Cath Placed During This Visit: yes Reason for Continuing Indwelling Catheter: Other Urinary Catheter Date of Insertion: 04/21/23 Data 04/30/23 05:48 04/30/23 05:48 A&P Assessment and plan (1) Closed fracture of right hip: Qualifiers: Encounter type: initial encounter Qualified Code(s): S72.001A - Fracture of unspecified part of neck of right femur, initial encounter for closed fracture Plan Right hip fracture -Status post surgical invention by Dr. Eaton ? Currently back on Eliquis ? Pain control hydrocodone ? SCDs for DVT prophylaxis, ? General surgery consulted Acute encephalopathy, postsurgical, likely anesthetic effect, currently alert to person, not to place, not to time, which is about her baseline Postoperative hypotension, likely anesthetic effect, has received fluids, blood pressures are improving continue midodrine 5 mg 3 times daily History of chronic urinary retention - history of UTI, history of enterococcus uti - La catheter placed - repeat UA, UA within normal limits History of atrial fibrillation, ? Will continue to monitor closely ?Eliquis Diastolic CHF -not in exacerbation ? Monitor for fluid overload history of dementia - according to haja currently at bedside Pain control hydrocodone Attestations 2 Medical Necessity Statement*: Patient requires hospitalization for right hip fracture with postoperative confusion, hypotension Diagnoses Closed fracture of right hip S72.001A Encounter type: initial encounter
[2023-04-30] MEDS: pantoprazole 40 mg SDV IVP (17:34)
--- NOTE | 2023-04-30 18:08 | P.PN_ITS ---
Subjective 2 Subjective: The patient is seen in her room. She is very talkative and answers questions appropriately. This is a huge improvement since yesterday. She is seen with her daughter, and her care is discussed with the daughter. Medications: Reviewed: Yes Vitals/I&O/Wt Last Vital Signs Temp 98.0 F 04/30/23 16:00 Pulse 54 L 04/30/23 16:00 Resp 16 04/30/23 16:00 BP 98/60 04/30/23 16:00 Pulse Ox 99 04/30/23 16:00 O2 Del Method Room Air 04/30/23 16:00 O2 Flow Rate 6 04/28/23 17:20 04/30/23 04/30/23 04/30/23 06:59 14:59 22:59 Intake Total 500 / 1210 180 / 180 Output Total 200 / 800 0 / 0 Balance 300 / 410 180 / 180 Weight last 48 hrs Weight 132 lb 3 oz Weight 131 lb 3 oz Physical Exam 2 Const: COMMON NORMALS: no acute distress, average body habitus, patient oriented x3, no limitations, healthy appearing, alert and well nourished G ENERAL APPEARANCE: cooperative; not anxious and not combative ORIENTATION/CONSCIOUSNESS: Yes awake, Yes oriented to person, Yes oriented to place and Yes oriented to time HENMT: COMMON NORMALS: normocephalic and atraumatic HEAD & SCALP: n ormocephalic and atraumatic Eye: GENERAL EYE: appearance normal, both eyes and all related structures E YELID: eyelids normal Chest: COMMONS NORMALS: normal inspection of the chest Resp: COMMON NORMALS: normal respiratory effort EFFORT & INSPECTION: Yes able to speak in complete sentences and Yes symmetric chest movement Extremity: RIGHT LOWER EXTREMITY: Yes hip joint (Dressing dry and intact) Right hip: Yes neurovascular exam (Intact distally) Neuro: COMMON NORMALS: patient oriented x3 SENSORIUM/ORIENTATION: Yes alert, Yes oriented to person, Yes oriented to place and Yes oriented to time SPEECH: speech normal GAIT: Yes Normal gait present Psych: ATTITUDE: Yes calm and Yes engaged ACTIVITY/MOTOR BEHAVIOR: Yes appropriate eye contact ATTENTION/CONCENTRATION: Yes attention grossly intact MEMORY/COGNITION: Yes memory grossly intact Skin: COMMON NORMALS: no rashes or lesions noted and turgor normal; negative for no jaundice GENERAL SKIN EXAM: no rashes or lesions noted, turgor normal and no jaundice Urinary Catheter Management: La: Cath Placed During This Visit: yes Reason for Continuing Indwelling Catheter: Other Urinary Catheter Date of Insertion: 04/21/23 Data 04/30/23 05:48 04/30/23 05:48 A&P Assessment and plan (1) Closed displaced fracture of right femoral neck: Destiny Quintana is a 77 year old female who presented to the emergency department for right hip pain and right hip femoral neck fracture. Patient underwent bipolar hip arthroplasty, and she tolerated this well. She is seen today on postop day 2. She is much more talkative today than she has been since her admission. She answers appropriately. As she was a resident of a prison prior to her presentation to the hospital, plans will be made to return her there. She will likely qualify for skilled since it is apparent this fracture was preventing her from ambulating as it did appear to be chronic. Attestations 2 Medical Necessity Statement*: Ongoing care following Bipolar Hip Arthroplasty Coding Level of Care Code Acute Code for [facility] Fwd Diagnoses Closed displaced fracture of right femoral neck S72.001A
[2023-05-01 04:08] VITALS: BP 100/62; PULSE 61; RESP 17; TEMP 36.7; O2SAT 95
[2023-05-01] MEDS: apixaban 5 mg Tablet PO (05:27)
[2023-05-01 07:16] LABS: Basophils % 0.4 %; Eosinophils # 0.1 10^3/uL (0.0-0.8); Eosinophils % 1.2 %; Hematocrit 30.6 % (36-47); Lymphocytes # 0.6 10^3/uL (0.8-4.8); Lymphocytes % 10.7 %; Mean Corpuscular HGB Conc 29.7 g/dL (30-55); Mean Corpuscular Hemoglobin 27.2 pg (27-33); Mean Corpuscular Volume 91.3 fl (85-98); Mean Platelet Volume 11.1 fL (7.4-10.4); Monocytes # 0.4 10^3/uL (0.2-0.9); Monocytes % 6.8 %; Neutrophils # 4.59 10^3/uL (1.8-7.7); Neutrophils % 80.5 %; Nucleated Red Blood Cells % 0 %; Platelet Count 263 10^3/cmm (157-399); Red Blood Count 3.35 10^6/uL (3.85-5.65); Red Cell Distribution Width 15.5 % (12.1-15.1)
[2023-05-01 07:24] VITALS: BP 112/62; PULSE 65; RESP 16; TEMP 36.8; O2SAT 95
--- NOTE | 2023-05-01 08:03 | P.PN_ITS ---
Subjective 2 Subjective: Patient is seen today with her daughter in the room. She is a little weepy , but otherwise, she appears ready for discharge. Medications: Reviewed: Yes Vitals/I&O/Wt Last Vital Signs Temp 98.3 F 05/01/23 07:24 Pulse 65 05/01/23 07:24 Resp 16 05/01/23 07:24 BP 112/62 05/01/23 07:24 Pulse Ox 95 05/01/23 07:24 O2 Del Method Room Air 05/01/23 07:24 O2 Flow Rate 6 04/28/23 17:20 04/30/23 05/01/23 05/01/23 22:59 06:59 14:59 Intake Total 240 / 420 Output Total 450 / 450 150 / 600 Balance -210 / -30 -150 / -180 Weight last 48 hrs Weight 132 lb 4 oz Weight 132 lb 3 oz Physical Exam 2 Const: COMMON NORMALS: no acute distress, average body habitus, patient oriented x3, no limitations, healthy appearing, alert and well nourished G ENERAL APPEARANCE: cooperative; not anxious and not combative ORIENTATION/CONSCIOUSNESS: Yes awake, Yes oriented to person, Yes oriented to place and Yes oriented to time HENMT: COMMON NORMALS: normocephalic and atraumatic HEAD & SCALP: n ormocephalic and atraumatic Eye: GENERAL EYE: appearance normal, both eyes and all related structures E YELID: eyelids normal Chest: COMMONS NORMALS: normal inspection of the chest Resp: COMMON NORMALS: normal respiratory effort EFFORT & INSPECTION: Yes able to speak in complete sentences and Yes symmetric chest movement Extremity: RIGHT LOWER EXTREMITY: Yes hip joint (Dressing is dry and intact. No evidence of DVT.) Neuro: COMMON NORMALS: patient oriented x3 SENSORIUM/ORIENTATION: Yes alert, Yes oriented to person, Yes oriented to place and Yes oriented to time SPEECH: speech normal GAIT: Yes Normal gait present Psych: ATTITUDE: Yes calm and Yes engaged ACTIVITY/MOTOR BEHAVIOR: Yes appropriate eye contact ATTENTION/CONCENTRATION: Yes attention grossly intact MEMORY/COGNITION: Yes memory grossly intact Skin: COMMON NORMALS: no rashes or lesions noted and turgor normal; negative for no jaundice GENERAL SKIN EXAM: no rashes or lesions noted, turgor normal and no jaundice Urinary Catheter Management: La: Cath Placed During This Visit: yes Reason for Continuing Indwelling Catheter: Chronic Indwelling Urinary Catheter on Admission Urinary Catheter Date of Insertion: 04/21/23 Data 05/01/23 06:58 05/01/23 06:58 A&P Assessment and plan (1) Closed displaced fracture of right femoral neck: Destiny Quintana is a 77 year old female who presented to the emergency department for right hip pain and right hip femoral neck fracture. Patient underwent bipolar hip arthroplasty, and she tolerated this well. She is seen today on postop day 3. Patient continues to appear improved from her initial basis with regards to communication and interactions. She has worked with physical therapy. Plans are to return her to [facility] today. Status of this return with regards to skilled is still pending. The patient would likely benefit from snf and physical therapy to be able to resume ambulation. Attestations 2 Medical Necessity Statement*: Per medical team Coding Level of Care Code Acute Code for [facility] Fwd Diagnoses Closed displaced fracture of right femoral neck S72.001A
[2023-05-01 08:13] LABS: Alanine Aminotransferase < 5 U/L (0-33); Albumin Level 2.8 g/dL (3.5-5.2); Alkaline Phosphatase 81 U/L (35-105); Anion Gap 13.9 (5-19); Aspartate Amino Transferase 14 U/L (0-32); Blood Urea Nitrogen 17 mg/dL (8-23); Calcium 8.9 mg/dL (8.5-10.5); Carbon Dioxide 23 mmol/L (22-29); Chloride 109 mmol/L (98-107); Globulin 2.9 g/dL (1.3-4.6); Glucose 98 mg/dL (65-115); Osmolality Calculated 296 mOsm/kg (285-295); Potassium 3.9 mmol/L (3.5-5.1); Sodium 142 mmol/L (136-145); Total Bilirubin 0.3 mg/dL (0.15-1.2); Total Protein 5.7 g/dL (6.6-8.7)
[2023-05-01] MEDS: polyethylene glycol 3350 Pkt 17 gm PO (10:16)
[2023-05-01] MEDS: calcium carbonate 500 mg Chew Tablet 1000 MG PO (10:18)
[2023-05-01] MEDS: sennosides-docusate Tablet 2 TAB PO (10:18)
[2023-05-01] MEDS: amiodarone 200 mg Tablet PO (10:19)
[2023-05-01] MEDS: midodrine 5 mg TABLET PO (10:19)
[2023-05-01] MEDS: iron polysaccharide complex 150 mg Capsule PO (10:19)
[2023-05-01] MEDS: cholecalciferol (vitamin D3) 1,000 unit Tablet 1000 UNIT PO (10:19)
[2023-05-01] MEDS: multivitamin therapeutic Tablet 1 TAB PO (10:19)
[2023-05-01] MEDS: mupirocin oint 22 gm 1 APPLIC NASAL (10:20)
[2023-05-01] MEDS: chlorhexidine gluconate 0.12% Btl 473 mL 30 ML MUCOUS MEM (10:20)
[2023-05-01 11:22] VITALS: BP 113/73; PULSE 74; RESP 17; O2SAT 99
--- NOTE | 2023-05-01 12:06 | PM.DCS ---
Discharge Providers Date of Admission: 04/27/23 17:53 Date of Discharge: May 01, 2023 Attending Provider at Admission: Dann Navarro MD Attending Provider at Discharge: Dann Navarro MD Primary Care Provider: Ying Bonilla MD Diagnoses at Discharge Discharge Diagnosis (1) Closed displaced fracture of right femoral neck: Status: Acute Reason for Visit Reason for Visit: hip fracture Hospital Course Hospital Course Destiny Quintana is a 77 year old female with a past medical history of paroxysmal atrial fibrillation, on anticoagulation, diastolic CHF, history of dementia, possible Lewy body dementia, history of lower extremity edema, show of anemia, chronic hearing loss, history of left femoral hernia repair, who presents to [facility] due to right hip fracture. Patient's daughter is at bedside who provides most of the history, patient alert to person, not to place, not to time, she is not moving her right lower extremity, really does not complain of pain, is not in pain, daughter denies any falls, no significant trauma at the shelter, she was treated for a UTI roughly a week ago, no issues with her A-fib no issues with her diastolic CHF, for her urinary retention she has a La catheter in place, Patient was admitted to [facility] for right hip fracture, status post surgical intervention by Dr. Eaton, tolerated procedure well, [facility], discharge on her home Eliquis for A-fib and DVT prophylaxis Patient's hospitalization was complicated with acute encephalopathy, postsurgical like anesthetic effect, discharge alert to person, not to place, to time, which is her baseline, she can follow commands, she was seen in the morning of 05/01/2023, feeding herself, following commands Postoperative hypotension, likely Catheter, discharge awaiting dose of midodrine For chronic urinary retention, UA within normal limits, La catheter in place she needs to follow-up with urology as outpatient for removal Physical Exam Const: COMMON NORMALS: no acute distress ORIENTATION/CONSCIOUSNESS: Yes awake and Yes oriented to person; not oriented to place and not oriented to time Resp: COMMON NORMALS: normal respiratory effort, No retractions, No use of accessory muscles and clear to auscultation bilaterally AUSCULTATION: clear to auscultation bilaterally Cardio: COMMON NORMALS: regular rate, regular rhythm, S1 normal heart sound present and S2 normal heart sound present RATE: regular rate RHYTHM: regular rhythm HEART SOUNDS: S1 normal heart sound present and S2 normal heart sound present GI: COMMON NORMALS: Normal to inspection, nondistended, normoactive bowel sounds present and non-tender Extremity: COMMON NORMALS: no pedal edema Neuro: SENSORIUM/ORIENTATION: Yes oriented to person, No oriented to place and No oriented to time Psych: COMMON NORMALS: mental status grossly normal Urinary Catheter Management: La: Cath Placed During This Visit: yes Reason for Continuing Indwelling Catheter: Chronic Indwelling Urinary Catheter on Admission Urinary Catheter Date of Insertion: 04/21/23 Discharge Data Studies Completed and Pending Completed Studies During Hospitalization Category Date Time Status XR chest 1V portable [id number] Stat Exams 04/27/23 16:09 Completed XR hip RT 2-3V wo/w pel* [id number] Stat Exams 04/27/23 16:09 Completed XR pelvis 1-2V* [id number] Routine Exams 04/28/23 11:48 Completed XR pelvis 1-2V* [id number] Routine Exams 04/28/23 17:26 Completed Pending at discharge Category Date Time Status Comprehensive Metabolic Panel AM LABS Lab 05/02/23 04:00 Ordered Comprehensive Metabolic Panel AM LABS Lab 05/03/23 04:00 Ordered SARS Covid-2 Antigen Routine Lab 05/01/23 12:02 Uncollected Radiology Impressions Chest X-Ray 04/27/23 16:09 IMPRESSION: Substantial interval improvement in aeration at both lung bases. There is new minimal density in the right mid lung laterally, nonspecific but favored to represent atelectasis. Follow-up with PA and lateral chest x-ray may be helpful. Hip/Pelvis X-Ray 04/27/23 16:09 IMPRESSION: Acute transversely oriented fracture of the right femoral neck. Pelvis X-Ray 04/28/23 17:26 IMPRESSION: Post right total hip arthroplasty. Laboratory Results WBC 5.70 10^3/uL (3.29-11.43) 05/01/23 06:58 RBC 3.35 10^6/uL (3.85-5.65) L 05/01/23 06:58 Hgb 9.10 g/dL (11.27-16.99) L 05/01/23 06:58 Hct 30.6 % (36-47) L 05/01/23 06:58 MCV 91.3 fl (85-98) 05/01/23 06:58 MCH 27.2 pg (27-33) 05/01/23 06:58 MCHC 29.7 g/dL (30-55) L 05/01/23 06:58 RDW 15.5 % (12.1-15.1) H 05/01/23 06:58 Plt Count 263 10^3/cmm (157-399) 05/01/23 06:58 MPV 11.1 fL (7.4-10.4) H 05/01/23 06:58 Neut % (Auto) 80.5 % 05/01/23 06:58 Lymph % (Auto) 10.7 % 05/01/23 06:58 [place] % (Auto) 6.8 % 05/01/23 06:58 Eos % (Auto) 1.2 % 05/01/23 06:58 Baso % (Auto) 0.4 % 05/01/23 06:58 Neut # (Auto) 4.59 10^3/uL (1.8-7.7) 05/01/23 06:58 Lymph # (Auto) 0.6 10^3/uL (0.8-4.8) L 05/01/23 06:58 [place] # (Auto) 0.4 10^3/uL (0.2-0.9) 05/01/23 06:58 Eos # (Auto) 0.1 10^3/uL (0.0-0.8) 05/01/23 06:58 Baso # (Auto) 0.0 10^3/uL (0.0-0.1) 05/01/23 06:58 Nucleated RBC % (auto) 0 % 05/01/23 06:58 Nucleated RBCs # 0.0 /100WBC 05/01/23 06:58 PT 20.10 SECONDS (12.1-14.9) H 04/30/23 05:48 INR 1.65 (0.8-1.2) H 04/30/23 05:48 Sodium 142 mmol/L (136-145) 05/01/23 06:58 Potassium 3.9 mmol/L (3.5-5.1) 05/01/23 06:58 Chloride 109 mmol/L (98-107) H 05/01/23 06:58 Carbon Dioxide 23 mmol/L (22-29) 05/01/23 06:58 Anion Gap 13.9 (5-19) 05/01/23 06:58 BUN 17 mg/dL (8-23) 05/01/23 06:58 Creatinine 0.5 mg/dL (0.5-0.9) 05/01/23 06:58 GFR Calculation Not Reportable 05/01/23 06:58 Glucose 98 mg/dL (65-115) 05/01/23 06:58 Calculated Osmolality 296 mOsm/kg (285-295) H 05/01/23 06:58 Lactic Acid 0.9 mmol/L (0.5-2.2) 04/27/23 19:18 Calcium 8.9 mg/dL (8.5-10.5) 05/01/23 06:58 Phosphorus 2.0 mg/dL (2.5-4.5) L 04/30/23 05:48 Magnesium 2.3 mg/dL (1.7-2.3) 04/30/23 05:48 Total Bilirubin 0.3 mg/dL (0.15-1.2) 05/01/23 06:58 AST 14 U/L (0-32) 05/01/23 06:58 ALT < 5 U/L (0-33) 05/01/23 06:58 Alkaline Phosphatase 81 U/L (35-105) 05/01/23 06:58 Troponin T Baseline 35 ng/L (0-10) H 04/27/23 19:18 Troponin T 120 Minute 29.46 ng/L (0-10) H 04/27/23 22:54 Delta Troponin T -5.54 ABS# (0-10) L 04/27/23 22:54 Troponin T Hi Sens 6Hr 38.47 ng/L (0-10) H 04/28/23 02:24 Troponin T Hi Sens 6Hr Delta 3.47 ng/L (0-12) 04/28/23 02:24 NT-Pro-B Natriuret Pep 280 pg/mL (0-450) 04/27/23 19:18 Total Protein 5.7 g/dL (6.6-8.7) L 05/01/23 06:58 Albumin 2.8 g/dL (3.5-5.2) L 05/01/23 06:58 Globulin 2.9 g/dL (1.3-4.6) 05/01/23 06:58 Procalcitonin 0.04 ng/mL (0-0.5) 04/27/23 19:18 TSH 8.70 uIU/mL (0.27-4.20) H 04/27/23 19:18 Random Cortisol 16.37 ug/dL (2.47-19.5) 04/30/23 05:43 Urine Color Yellow (Yellow) 04/29/23 14:00 Urine Appearance Clear (CLEAR) 04/29/23 14:00 Urine pH 5 (5-7) 04/29/23 14:00 Ur Specific [place] 1.025 (1.005-1.030) 04/29/23 14:00 Urine Protein Trace (Negative) 04/29/23 14:00 Urine Glucose (UA) Norm (Normal) 04/29/23 14:00 Urine Ketones 2+ (Negative) H 04/29/23 14:00 Urine Blood Neg (Negative) 04/29/23 14:00 Urine Nitrate Negative (Negative) 04/29/23 14:00 Urine Bilirubin Neg (Negative) 04/29/23 14:00 Urine Urobilinogen Norm mg/dL (Negative) 04/29/23 14:00 Ur Leukocyte Esterase Negative (Negative) 04/29/23 14:00 Urine RBC 0-4 /hpf (0-2) H 04/29/23 14:00 Urine WBC 0-4 /hpf (0-5) H 04/29/23 14:00 Ur Squamous Epith Cells 0-4 /hpf (0-5) H 04/29/23 14:00 Uric Acid Crystals 0-4 rosettes /hpf 04/29/23 14:00 Amorphous Sediment Not Reportable 04/29/23 14:00 Urine Bacteria Trace /hpf (NONE) 04/29/23 14:00 Hyaline Casts 0-4 /lpf H 04/29/23 14:00 Urine Mucus Trace /hpf 04/29/23 14:00 SARS-CoV-2 Ag (Rapid) negative (Negative) 04/29/23 11:15 Vitals Last Vital Signs Temp 98.3 F 05/01/23 07:24 Pulse 74 05/01/23 11:22 Resp 17 05/01/23 11:22 BP 113/73 05/01/23 11:22 Pulse Ox 99 05/01/23 11:22 O2 Del Method Room Air 05/01/23 11:22 O2 Flow Rate 6 04/28/23 17:20 Discharge Plan Discharge Patient Disposition: Home Condition: Stable Prescriptions: New hydrocodone-acetaminophen 5-325 mg Tablet 1 tab PO Q4H PRN (Reason: Moderate Pain) 7 Days Qty: 30 0RF midodrine 5 mg Tablet See Rx Instructions .ROUTE .COMPLEX 9 Days Qty: 18 0RF Rx Instructions: 5 mg TID for 3 days, BID for 3 days, 1/2 tab bid for 3 days, then stop Continued (DME) comp.stocking,knee,long,medium Misc See Rx Instructions .Route Qty: 12 0RF Rx Instructions: As directed alendronate 70 mg tablet See Rx Instructions PO .COMPLEX Qty: 4 0RF Rx Instructions: 1 tab weekly on empty stomach with full glass water. Do not eat/lie down for 1 hour after magnesium oxide 400 mg magnesium Tablet 400 mg PO QAM PRN (Reason: Muscle Spasm) Prevagen 1 cap PO QAM polyethylene glycol 3350 17 gram Powder In Packet 17 g PO DAILY Qty: 10 0RF magnesium hydroxide [Milk of Magnesia] 400 mg/5 mL Suspension 15 ml PO Q72H PRN (Reason: Constipation) bisacodyl [Dulcolax (bisacodyl)] 10 mg Suppository 10 mg ID DAILY PRN (Reason: Constipation) Fleet Enema 19-7 gram/118 mL Enema 118 ml ID DAILY PRN (Reason: Constipation) bisacodyl [Dulcolax (bisacodyl)] 5 mg Tablet,Delayed Release (Dr/Ec) 5 mg PO DAILY PRN (Reason: Constipation) furosemide 40 mg tablet 40 mg PO DAILY acetaminophen 325 mg Tablet 650 mg PO Q6H PRN (Reason: pain or increased temp) amiodarone 200 mg tablet 200 mg PO DAILY potassium chloride 20 mEq tablet,ER particles/crystals 20 meq PO DAILY Eliquis 5 mg tablet 5 mg PO BID Discharge Orders: Discharge Order (Routine); Ordered 05/01/23 Ordered By: Dann Navarro Referrals: Marry Gloria MD [Physician] - 3 weeks Yign Bonilla MD [Primary Care Provider] - Discharge Diet: As Directed Discharge Activity: As per PT/OT instructions Patient Instructions: Opioid Safety Activity Restrictions/Additional Instructions: Posterior hip precautions. Weightbearing as tolerated. Use walker for ambulation as tolerated. Discharge Attestations Time Spent in Discharge Care*: greater than 30 min Quality Metrics Clinical Quality Measures [ No reported AMI, CVA or VTE this stay] Coding Level of Care Code 13254 Total time (in minutes) for Discharge: 45 Diagnoses Closed displaced fracture of right femoral neck S72.001A
[2023-05-01 13:24] LABS: SARS Covid-2 Antigen negative (Negative)
--- NOTE | 2023-05-01 13:35 | PC.NURSE ---
Called report in to Astrid at [facility].
[2023-05-01 14:37] VITALS: BP 113/73; PULSE 74; RESP 17; O2SAT 99
== END 2023-05-01 14:38 | disposition skilled nursing facility (03) | DRG 521 ==
LOC: ER 16:19 → ER IP 17:11 → MEDSURG 21:00 → ER IP 04-28 07:02 → MEDSURG 04-28 07:02
PROVIDERS: Nurse Practitioner; Specialist; Admitting Provider Family Medicine; Emergency Provider Emergency Medicine; PCP Family Medicine; Visit Provider Family Medicine
PROC: 0SRR0JZ Replacement of Right Hip Joint, Femoral Surface with Synthetic Substitute, Open Approach (ICD-10-PCS; CPT 27125; principal; 2023-04-28 12:55)
DX: S72.011A Unspecified intracapsular fracture of right femur, initial encounter for closed fracture (principal); I50.31 Acute diastolic (congestive) heart failure; G93.40 Encephalopathy, unspecified; X58.XXXA Exposure to other specified factors, initial encounter; Y92.128 Other place in nursing home as the place of occurrence of the external cause; I95.9 Hypotension, unspecified; Z87.440 Personal history of urinary (tract) infections; R33.9 Retention of urine, unspecified; H91.90 Unspecified hearing loss, unspecified ear; D64.9 Anemia, unspecified; I48.0 Paroxysmal atrial fibrillation; Z79.01 Long term (current) use of anticoagulants; I27.20 Pulmonary hypertension, unspecified; I73.9 Peripheral vascular disease, unspecified; Z86.73 Personal history of transient ischemic attack (TIA), and cerebral infarction without residual deficits; Z87.891 Personal history of nicotine dependence; G31.83 Neurocognitive disorder with Lewy bodies; F02.80 Dementia in other diseases classified elsewhere, unspecified severity, without behavioral disturbance, psychotic disturbance, mood disturbance, and anxiety
CPT/HCPCS: 36415; 51702; 71045; 72170; 73502; 77080; 80048; 80053; 81001; 82533; 83605; 83735; 83880; 84100; 84145; 84443; 84484; 85025; 85610; 87426; 93005; 94664; 96374; 97110; 97162; 97167; 97530; 99285; C1776; C9113; J0131; J0690; J1170; J2270; J3370; J7030; J7040; J7050

== ENCOUNTER 2023-05-05 09:43 | Oncology outpatient (recurring) (ONCR) | payer MEDICARE, SELFPAY ==
[2023-05-05 11:58] LABS: Basophils % 0.4 %; Eosinophils # 0.1 10^3/uL (0.0-0.8); Eosinophils % 1.3 %; Lymphocytes # 0.7 10^3/uL (0.8-4.8); Lymphocytes % 15.9 %; Mean Corpuscular Hemoglobin 27.2 pg (27-33); Mean Corpuscular Volume 90.7 fl (85-98); Mean Platelet Volume 11.4 fL (7.4-10.4); Monocytes # 0.2 10^3/uL (0.2-0.9); Monocytes % 4.5 %; Neutrophils # 3.45 10^3/uL (1.8-7.7); Neutrophils % 77.5 %; Nucleated Red Blood Cells % 0 %; Platelet Count 335 10^3/cmm (157-399); Red Blood Count 4.19 10^6/uL (3.85-5.65); Red Cell Distribution Width 15.7 % (12.1-15.1); White Blood Count 4.46 10^3/uL (3.29-11.43)
[2023-05-05 12:25] LABS: Alanine Aminotransferase 7 U/L (0-33); Albumin Level 3.7 g/dL (3.5-5.2); Alkaline Phosphatase 112 U/L (35-105); Anion Gap 14.9 (5-19); Aspartate Amino Transferase 17 U/L (0-32); Blood Urea Nitrogen 16 mg/dL (8-23); Calcium 10.1 mg/dL (8.5-10.5); Carbon Dioxide 29 mmol/L (22-29); Chloride 100 mmol/L (98-107); Free T4 Free Thyroxine 1.41 ng/dL (0.82-1.77); Globulin 4.1 g/dL (1.3-4.6); Glucose 88 mg/dL (65-115); Osmolality Calculated 291 mOsm/kg (285-295); Potassium 3.9 mmol/L (3.5-5.1); Sodium 140 mmol/L (136-145); Thyroid Stimulating Hormone 7.12 uIU/mL (0.27-4.20); Total Bilirubin 0.2 mg/dL (0.15-1.2); Total Protein 7.8 g/dL (6.6-8.7)
[2023-05-06 16:30] LABS: KAPPA LIGHT CHAIN, FREE, SERUM 24.7 mg/L (3.3-19.4); KAPPA/LAMBDA LIGHT CHAINS FREE 1.79 (0.26-1.65); LAMBDA LIGHT CHAIN, FREE, SERU 13.8 mg/L (5.7-26.3)
[2023-05-07 11:39] LABS: ABNORMAL PROTEIN BAND 1 0.4 g/dL (NONE DETECTED); ALBUMIN 3.4 g/dL (3.8-4.8); ALPHA 1 GLOBULIN 0.5 g/dL (0.2-0.3); ALPHA 2 GLOBULIN 1.2 g/dL (0.5-0.9); BETA 1 GLOBULIN 0.4 g/dL (0.4-0.6); BETA 2 GLOBULIN 0.4 g/dL (0.2-0.5); GAMMA GLOBULIN 1.1 g/dL (0.8-1.7)
== END 2023-05-20 23:59 | disposition home or self-care (01) ==
PROVIDERS: Nurse Practitioner Family; PCP Family Medicine; Visit Provider Internal Medicine Medical Oncology
DX: I48.0 Paroxysmal atrial fibrillation (principal); I73.9 Peripheral vascular disease, unspecified; M19.90 Unspecified osteoarthritis, unspecified site; R53.83 Other fatigue; Z78.0 Asymptomatic menopausal state; R91.1 Solitary pulmonary nodule; R00.1 Bradycardia, unspecified; R79.1 Abnormal coagulation profile; R25.8 Other abnormal involuntary movements; R55 Syncope and collapse; R26.9 Unspecified abnormalities of gait and mobility; R29.818 Other symptoms and signs involving the nervous system
CPT/HCPCS: 36415; 80053; 83883; 84155; 84165; 84439; 84443; 85025; 99214

== ENCOUNTER 2023-05-11 11:11 | Emergency (ER) | payer MEDICARE, MEDICAID, SELFPAY ==
[2023-05-11 11:15] VITALS: BP 104/62; PULSE 59; RESP 12; TEMP 36.7; O2SAT 96; BMI 19.5
--- NOTE | 2023-05-11 11:20 | CT_ITS ---
WS: [id number] CT HEAD TECHNIQUE: Noncontrast CT of the head obtained from the skullbase to the vertex. CLINICAL INFORMATION: trauma/fall COMPARISON: MRI 04/16/[address] 03/19/2023 DLP: 1369.[address] scans at [facility] use at least one of these dose optimization techniques: automated e xposure control; mA and/or kV adjustment per patient size (includes targeted exams where dose is matc hed to clinical indication); or iterative reconstruction. FINDINGS: No evidence of intracranial hemorrhage or mass effect. Ventricular system and basal cisterns are gross nt. Moderate small vessel changes with moderate parenchymal volume loss. No extra-axial fluid collect ions. No evidence of mass or mass effect. Stable calcified meningioma overlying the RIGHT insula unch anged. Mucosal thickening in the paranasal sinuses. Small mild fluid in the sphenoid sinus. Mastoid air cell s are well aerated. Normal posterior nasopharynx. IMPRESSION: 1. No evidence of intracranial hemorrhage or mass effect. 2. Moderate small vessel changes. Moderate parenchymal volume loss. 3. Intracranial vascular calcification. 4. Stable calcified meningioma overlying the RIGHT insula unchanged. 5. No acute intracranial findings.
--- NOTE | 2023-05-11 11:20 | CT_ITS ---
WS: [id number] CT CERVICAL TRAUMA TECHNIQUE: Noncontrast CT of the cervical spine with coronal and sagittal reformatted images. CLINICAL INFORMATION: trauma/fall COMPARISON: CT 2017 DLP: 1369.[address] scans at [facility] use at least one of these dose optimization techniques: automated e xposure control; mA and/or kV adjustment per patient size (includes targeted exams where dose is matc hed to clinical indication); or iterative reconstruction. FINDINGS: Straightening of the normal cervical lordosis. Mild cervical curve. Moderate spondylitic changes. Dis c base narrowing worse at C5-C6 and C6-C7 with disc osteophyte complexes. Normal craniocervical junct ion. Normal C1-C2 articulation. Dens is normal in appearance. Normal occipital condyles. No high-grad e spinal canal narrowing. Normal C1 ring. No evidence of acute fracture or dislocation. Normal prevertebral soft tissues. Fibrosis in the lung apices. 9 mm noncalcified nodule RIGHT upper l obe stable since chest CT 03/24/23. Mastoids air cells are well aerated. IMPRESSION: No evidence of acute fracture or dislocation.
--- NOTE | 2023-05-11 11:20 | XR_ITS ---
WS: [id number] RIGHT HIP HISTORY: fall/trauma--post-op hip COMPARISON: 04/28/2023, 04/27/2023 Right hip: Status post RIGHT hip arthroplasty. Arthroplasty appears in good position and alignment. S imilar to the prior study. No lateral projection. No crosstable lateral performed. There is a fractur e through the base of the lesser trochanter which is not definitely identified on prior studies. IMPRESSION: 1. Status post RIGHT hip arthroplasty. Arthroplasty in good position and alignment. 2. No crosstable lateral or lateral projection submitted 3. Avulsion of the lesser trochanter. This was not identified in any of the prior imaging studies. T his may be acute and related to the recent trauma.
--- NOTE | 2023-05-11 11:20 | XR_ITS ---
WS: [id number] RIGHT WRIST: 3 VIEW(S) TECHNIQUE: PA, oblique and lateral. HISTORY: trauma/fall COMPARISON: None available. No acute fracture or dislocation. Osteopenia. No joint space abnormality. No soft tissue swelling. IMPRESSION: No RIGHT wrist fracture.
--- NOTE | 2023-05-11 11:22 | W.ED.EXTPRO ---
HPI - Extremity Problem General: Chief complaint: Extremity Injury, Lower Stated complaint: fall with recent hip sx/rt knee Time Seen by Provider: 05/11/23 11:14 History of Present Illness: 78-year-old female presents to the emergency department via EMS secondary to an unwitnessed fall at her long-term care facility. She is at her baseline mental status. She does have bruising and swelling to her right wrist dorsal aspect. She is postoperative right hip replacement and she does have a orthopedic wedge in place EMS reports that the nursing staff reported that her knee look like it may have been slightly turned out after the fall. She is a poor historian given her longstanding dementia. She is on anticoagulation Eliquis Review of Systems General: Reports: 10 or more systems reviewed and unremarkable except in HPI and below and ROS unobtainable due to mental status [facility] ED PFSH: Medical History Closed displaced fracture of right femoral neck Anemia Paroxysmal atrial fibrillation Dehydration Femoral hernia of left side with gangrene and obstruction Strangulated inguinal hernia Incarcerated inguinal hernia Visual hallucinations Confusion History of CVA (cerebrovascular accident) Memory changes Peripheral arterial disease Lung nodule Pulmonary hypertension Chest pain Ovarian cystic mass Incomplete bladder emptying Palpitations History of hematuria History of bladder cancer Chronic cystitis Surgical History History of resection of small bowel Hx of hernia repair Dr. Reyes 01/23/23 open left femoral hernia repair with mesh, diagnostiv laparascopy, laparotomy with small bowel resection and primary anastomosis History of ear surgery History of lateral meniscus repair of right knee History of cataract removal with insertion of prosthetic lens History of right salpingo-oophorectomy Status post surgical removal and fulguration of bladder neoplasm Family History Father Colon cancer Sister Multiple myeloma Denies family history of Ovarian cancer Diabetes Dementia Heart disease Hypercholesteremia Breast cancer Hypertension Uterine cancer Thyroid disease Stroke Social History Smoking and tobacco/nicotine status: former use of tobacco/nicotine Quit status (tobacco/nicotine): has quit using Year quit tobacco: 2020 Alcohol intake: never Household members: none Number of children: 1 Number of grandchildren: 1 Current occupational status: retired 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 Vital signs as documented. No acute distress at present. Alert and oriented-to person-which appears to be her baseline mental status. Head, eyes, ears, nose, mouth, throat: Normocephalic, atraumatic. Pupils-equal, round, reactive to light. No scleral icterus. Normal-appearing external ears. Normal appearing nasal turbinates, no drainage. No obvious oral lesions, posterior oropharynx without erythema or exudates. Neck: Supple, trachea is midline, no lymphadenopathy, no jugular venous distension, thyromegaly, or carotid bruits. Carotid upstrokes are brisk bilaterally. Lungs: clear to auscultation to all lung hess. Symmetrical rise and fall of chest, no obvious signs of increased work of breathing at present. Cardiac: Regular rate and rhythm, positive S1, S2. No murmurs, rubs or gallops that I can appreciate Abdomen: Soft, non-tender to palpation, normal active bowel sounds to all quadrants. No palpable masses, no organomegaly and abdominal bruits. Extremities: 2+ pulses in the upper extremities that are equal bilaterally, 2+ pulses in the lower extremities that are equal bilaterally. Non-edematous. Moves all extremities well, sensation to all extremities are noted. Postoperative surgical site to the right hip does not appear to be infected. She does have bruising to the right wrist, it is tender to palpation. There is moderate edema noted to the dorsal aspect of the right wrist. Skin: Warm, dry, intact. Course ED course: I contacted Dr. Gloria who performed the patient's right hip surgery in April 2023 and advised her of the new radiographic findings. She advised minimal weightbearing and follow-up as previously planned. Vital Signs: Vital signs: Vital Signs Temperature 98.0 F 05/11/23 11:15 Pulse Rate 59 L 05/11/23 11:15 Respiratory Rate 12 05/11/23 11:15 Blood Pressure 112/63 05/11/23 12:47 Pulse Oximetry 98 05/11/23 12:47 Oxygen Delivery Me thod Room Air 05/11/23 11:15 MDM - Extremity (Nontraumatic) Medical Decision Making 78-year-old female presents via EMS secondary to fall postoperative right hip replacement. Complaints of right wrist discoloration swelling and tenderness to palpation. We will obtain a CT scan of her head and cervical spine given the unwitnessed fall and that she is on Eliquis. Will also obtain a plain film hip x-ray to evaluate as she is postoperative hip replacement and secondary to the unwitnessed fall. And we will also obtain a right wrist radiograph exam given her unwitnessed fall and obvious clinical findings. Medical Records I reviewed the patient's medical records. All radiology interpretation(s) finalized by discharge ED provider radiology interpretation(s): RIGHT HIP HISTORY: fall/trauma--post-op hip COMPARISON: 04/28/2023, 04/27/2023 Right hip: Status post RIGHT hip arthroplasty. Arthroplasty appears in good position and alignment. Similar to the prior study. No lateral projection. No crosstable lateral performed. There is a fracture through the base of the lesser trochanter which is not definitely identified on prior studies. IMPRESSION: 1. Status post RIGHT hip arthroplasty. Arthroplasty in good position and alignment. 2. No crosstable lateral or lateral projection submitted 3. Avulsion of the lesser trochanter. This was not identified in any of the prior imaging studies. This may be acute and related to the recent trauma. RIGHT WRIST: 3 VIEW(S) TECHNIQUE: PA, oblique and lateral. HISTORY: trauma/fall COMPARISON: None available. No acute fracture or dislocation. Osteopenia. No joint space abnormality. No soft tissue swelling. IMPRESSION: No RIGHT wrist fracture. Discharge Plan Discharge Patient Disposition: Home Clinical Impression: Contusion of right wrist, initial encounter Fracture of lesser trochanter of femur Qualifiers: Encounter type: initial encounter Fracture type: closed Fracture alignment: nondisplaced Laterality: right Qualified Code(s): S72.124A - Nondisplaced fracture of lesser trochanter of right femur, initial encounter for closed fracture Accidental fall Qualifiers: Encounter type: initial encounter Qualified Code(s): W19.XXXA - Unspecified fall, initial encounter Condition: Stable Prescriptions: No Action (DME) comp.stocking,knee,long,medium Misc See Rx Instructions .Route Qty: 12 0RF Rx Instructions: As directed alendronate 70 mg tablet See Rx Instructions PO .COMPLEX Qty: 4 0RF Rx Instructions: 1 tab weekly on empty stomach with full glass water. Do not eat/lie down for 1 hour after magnesium oxide 400 mg magnesium Tablet 400 mg PO QAM PRN (Reason: Muscle Spasm) Prevagen 1 cap PO QAM polyethylene glycol 3350 17 gram Powder In Packet 17 g PO DAILY Qty: 10 0RF magnesium hydroxide [Milk of Magnesia] 400 mg/5 mL Suspension 15 ml PO Q72H PRN (Reason: Constipation) bisacodyl [Dulcolax (bisacodyl)] 10 mg Suppository 10 mg WV DAILY PRN (Reason: Constipation) Fleet Enema 19-7 gram/118 mL Enema 118 ml WV DAILY PRN (Reason: Constipation) bisacodyl [Dulcolax (bisacodyl)] 5 mg Tablet,Delayed Release (Dr/Ec) 5 mg PO DAILY PRN (Reason: Constipation) furosemide 40 mg tablet 40 mg PO DAILY acetaminophen 325 mg Tablet 650 mg PO Q6H PRN (Reason: pain or increased temp) amiodarone 200 mg tablet 200 mg PO DAILY potassium chloride 20 mEq tablet,ER particles/crystals 20 meq PO DAILY Eliquis 5 mg tablet 5 mg PO BID Discharge Orders: Discharge ED (Routine); Ordered 05/11/23 Ordered By: Juan R Rueda Referrals: Ying Bonilla MD [Primary Care Provider] - Discharge Diet: Advance as tolerated Discharge Activity: Limit activity as instructed Patient Instructions: Opioid Safety, Pain Management Activity Restrictions/Additional Instructions: Activity Restrictions/Additional Instructions: Thank you for choosing [facility] for your healthcare needs today. Please realize that you were seen in the Emergency Department and that we are providing you with an emergency medical screening exam and this may not be a complete and all inclusive of all the testing and or medical work-up that you may need to determine your ailment or severity of your illness. It is very important that you follow-up as instructed with your Primary care provider or Specialist for additional evaluation and to discuss your medical treatment plan. You may return to the Emergency Department should you have concerns or if your condition changes or worsens in any way. Very minimal to nonweight bearing to the right extremity there is a new lesser trochanter avulsion fracture noted. Dr. Gloria the orthopedic surgeon was contacted and advised nonweight bearing to minimal weightbearing status and no further intervention at present with recommended follow-up as previously scheduled Coding Level of Care Code ED Rheostat Assembler for Renea Chakraborty
[2023-05-11 12:47] VITALS: BP 112/63; O2SAT 98
== END 2023-05-11 13:42 | disposition home or self-care (01) ==
PROVIDERS: Emergency Provider Internal Medicine; PCP Family Medicine
DX: S60.211A Contusion of right wrist, initial encounter (principal); S72.124A Nondisplaced fracture of lesser trochanter of right femur, initial encounter for closed fracture; Z79.01 Long term (current) use of anticoagulants; Z87.891 Personal history of nicotine dependence; Z86.73 Personal history of transient ischemic attack (TIA), and cerebral infarction without residual deficits; Z85.51 Personal history of malignant neoplasm of bladder; Z96.641 Presence of right artificial hip joint; W19.XXXA Unspecified fall, initial encounter; Y92.129 Unspecified place in nursing home as the place of occurrence of the external cause; F03.90 Unspecified dementia, unspecified severity, without behavioral disturbance, psychotic disturbance, mood disturbance, and anxiety
CPT/HCPCS: 70450; 72125; 73110; 73502; 99284

== ENCOUNTER → 2023-05-14 11:02 | Outpatient (BNVA) | payer MEDICARE, SELFPAY | PROVIDERS: PCP Internal Medicine; Visit Provider Psychiatry & Neurology Neurology | DX: G93.40 Encephalopathy, unspecified (principal); E03.9 Hypothyroidism, unspecified; R25.8 Other abnormal involuntary movements; D47.2 Monoclonal gammopathy; R55 Syncope and collapse | CPT/HCPCS: 99212 ==

== ENCOUNTER → 2023-05-20 13:57 | Outpatient (BNVA) | payer MEDICARE, MEDICAID, SELFPAY | PROVIDERS: PCP Internal Medicine; Visit Provider Specialist | DX: S72.001D Fracture of unspecified part of neck of right femur, subsequent encounter for closed fracture with routine healing; X58.XXXD Exposure to other specified factors, subsequent encounter | CPT/HCPCS: 73502; 99024 ==

== ENCOUNTER → 2023-06-02 12:42 | Outpatient (BNVA) | payer MEDICARE, SELFPAY | PROVIDERS: PCP Internal Medicine; Visit Provider Internal Medicine Cardiovascular Disease | DX: I48.0 Paroxysmal atrial fibrillation (principal); I95.1 Orthostatic hypotension; I73.9 Peripheral vascular disease, unspecified; I50.9 Heart failure, unspecified; G93.40 Encephalopathy, unspecified; Z79.01 Long term (current) use of anticoagulants; Z87.891 Personal history of nicotine dependence | CPT/HCPCS: 99214 ==

== ENCOUNTER 2023-08-06 11:40 | Oncology outpatient (recurring) (ONCR) | payer MEDICARE, SELFPAY ==
[2023-08-06 13:16] LABS: Basophils % 0.4 %; Eosinophils # 0.1 10^3/uL (0.0-0.8); Hematocrit 35.5 % (36-47); Lymphocytes # 0.6 10^3/uL (0.8-4.8); Lymphocytes % 10.2 %; Mean Corpuscular HGB Conc 31.3 g/dL (30-55); Mean Corpuscular Hemoglobin 28.5 pg (27-33); Mean Corpuscular Volume 91.3 fl (85-98); Monocytes # 0.5 10^3/uL (0.2-0.9); Monocytes % 9.7 %; Neutrophils # 4.31 10^3/uL (1.8-7.7); Neutrophils % 77.3 %; Nucleated Red Blood Cells % 0 %; Platelet Count 237 10^3/cmm (157-399); Red Blood Count 3.89 10^6/uL (3.85-5.65); Red Cell Distribution Width 16.2 % (12.1-15.1); White Blood Count 5.57 10^3/uL (3.29-11.43)
[2023-08-06 14:05] LABS: Alanine Aminotransferase 8 U/L (0-33); Alkaline Phosphatase 112 U/L (35-105); Anion Gap 12.3 (5-19); Aspartate Amino Transferase 14 U/L (0-32); Blood Urea Nitrogen 20 mg/dL (8-23); Calcium 9.3 mg/dL (8.5-10.5); Carbon Dioxide 26 mmol/L (22-29); Chloride 108 mmol/L (98-107); Creatinine Clr Calc Pharmacy 41.9716; Globulin 3.1 g/dL (1.3-4.6); Glucose 86 mg/dL (65-115); Iron 25 ug/dL (37-145); Osmolality Calculated 296 mOsm/kg (285-295); Percent Saturation 9.8 % (20-50); Potassium 4.3 mmol/L (3.5-5.1); Sodium 142 mmol/L (136-145); Total Bilirubin 0.3 mg/dL (0.15-1.2); Total Iron Binding Capacity 253 mcg/dl; Total Protein 7.1 g/dL (6.6-8.7); Unsaturated Iron Binding 228 ug/dL (112-347)
[2023-08-06 14:16] LABS: Erythrocyte Sedimentation Rate 21 mm/hr (0-15)
[2023-08-06 14:32] LABS: Immunoglobulin IGA 497 mg/dL (70-400); Immunoglobulin IGG 668 mg/dL (700-1600); Immunoglobulin IGM 67 mg/dL (40-230)
[2023-08-07 12:45] LABS: PROTEIN, TOTAL 6.4 g/dL (6.1-8.1)
[2023-08-07 13:19] LABS: KAPPA LIGHT CHAIN, FREE, SERUM 24.3 mg/L (3.3-19.4); KAPPA/LAMBDA LIGHT CHAINS FREE 1.93 (0.26-1.65); LAMBDA LIGHT CHAIN, FREE, SERU 12.6 mg/L (5.7-26.3)
[2023-08-10 09:14] LABS: ABNORMAL PROTEIN BAND 1 0.4 g/dL (NONE DETECTED); ALBUMIN 3.6 g/dL (3.8-4.8); ALPHA 1 GLOBULIN 0.3 g/dL (0.2-0.3); ALPHA 2 GLOBULIN 0.9 g/dL (0.5-0.9); BETA 1 GLOBULIN 0.4 g/dL (0.4-0.6); BETA 2 GLOBULIN 0.3 g/dL (0.2-0.5)
[2023-08-13 11:53] LABS: Soluble Transferrin Receptor 1.26 mg/L (0.76-1.76)
== END 2023-08-18 23:59 | disposition home or self-care (01) ==
PROVIDERS: Nurse Practitioner Family; PCP Internal Medicine; Visit Provider Internal Medicine Medical Oncology
DX: I48.0 Paroxysmal atrial fibrillation (principal); I73.9 Peripheral vascular disease, unspecified; M19.90 Unspecified osteoarthritis, unspecified site; R53.83 Other fatigue; Z78.0 Asymptomatic menopausal state; R91.1 Solitary pulmonary nodule; R00.1 Bradycardia, unspecified; R79.1 Abnormal coagulation profile; R25.8 Other abnormal involuntary movements; R55 Syncope and collapse; R26.9 Unspecified abnormalities of gait and mobility; R29.818 Other symptoms and signs involving the nervous system; E03.8 Other specified hypothyroidism; Z51.81 Encounter for therapeutic drug level monitoring
CPT/HCPCS: 36415; 80053; 82784; 83540; 83550; 83883; 84155; 84165; 84238; 85025; 85651; 86334; 99213

== ENCOUNTER 2023-11-29 20:00 | Emergency (ER) | payer MEDICARE, MEDICAID, SELFPAY ==
[2023-11-29 20:01] VITALS: BP 75/50; PULSE 51; TEMP 36.6; O2SAT 97; BMI 19.2
[2023-11-29 20:08] VITALS: BP 103/53; PULSE 88; RESP 16; O2SAT 96
--- NOTE | 2023-11-29 20:11 | XRR_ITS ---
PROCEDURE INFORMATION: Exam: XR Chest Exam date and time: 11/29/2023 8:25 PM Age: 78 years old Clinical indication: Other: Hypotension; Patient HX: EMS arrival from long-term for [facility]. Increasing confusion over last two days. PT hypotensive on monitor. History of dementia. TECHNIQUE: Imaging protocol: Radiologic exam of the chest. Views: 1 view. COMPARISON: CR XR chest 1V portable [id number] 04/27/2023 4:13 PM FINDINGS: Lungs: Mild left basilar opacities which may represent aspiration, pneumonia, or atelectasis. Emphysema. Pleural spaces: Unremarkable. No pleural effusion. No pneumothorax. Heart/Mediastinum: Unremarkable. No cardiomegaly. Vasculature: Atherosclerotic calcifications. Bones/joints: Unremarkable. XR/XR chest 1V portable [id number] IMPRESSION: Mild left basilar opacities which may represent aspiration, pneumonia, or atelectasis. Emphysema.
--- NOTE | 2023-11-29 20:11 | CTR_ITS ---
PROCEDURE INFORMATION: Exam: CT Head Without Contrast Exam date and time: 11/29/2023 8:39 PM Age: 78 years old Clinical indication: Altered mental status/memory loss; Confusion or disorientation; Patient HX: EMS arrival from [facility] for [facility]. Increasing confusion over last two days. PT hypotensive on monitor. History of dementia. TECHNIQUE: Imaging protocol: Computed tomography of the head without contrast. Radiation optimization: All CT scans at this facility use at least one of these dose optimization techniques: automated exposure control; mA and/or kV adjustment per patient size (includes targeted exams where dose is matched to clinical indication); or iterative reconstruction. COMPARISON: CT head wo con* [id number] 05/11/2023 11:32 AM RADIATION DOSE METRICS: Total DLP (mGy-cm): 1104.78 FINDINGS: Brain: No evidence for acute intracranial hemorrhage, mass effect, or acute infarct by CT. Moderate generalized cerebral atrophy. Mild presumed chronic small-vessel ischemic changes in the cerebral white matter. Stable small calcified meningioma lateral right frontal region. Cerebral ventricles: No ventriculomegaly. Paranasal sinuses: Visualized sinuses are unremarkable. No fluid levels. Mastoid air cells: Visualized mastoid air cells are well aerated. Bones: Unremarkable. No acute fracture. Soft tissues: Unremarkable. CT/CT head wo con* [id number] IMPRESSION: No acute intracranial abnormality.
--- NOTE | 2023-11-29 20:14 | W.ED.AMS ---
HPI - Altered Mental Status General: Chief Complaint: Altered Mental Status Stated Complaint: possible sepsis Time Seen by Provider: 11/29/23 20:07 Source: EMS Mode of arrival: EMS Limitations: altered mental status History of Present Illness: 78-year-old female here from [facility] with possible urinary retention as well EMS was called for. Patient is on the dementia unit there does have a history of dementia they told EMS she had been a little more confused than what her baseline is she is able to tell me her name here but not other to answer other questions which is likely from her dementia. Patient does not appear in any pain she has had some hypotension blood pressure here is 81/55 no known fevers. Related Data Home Medications Medication Instructions Recorded Confirmed Prevagen 1 cap PO QAM 12/19/22 08/06/23 bisacodyl 10 mg rectal suppository 10 mg GA DAILY PRN Constipation 03/19/23 08/06/23 (Dulcolax (bisacodyl)) bisacodyl 5 mg tablet,delayed 5 mg PO DAILY PRN Constipation 03/19/23 08/06/23 release (Dulcolax (bisacodyl)) magnesium hydroxide 400 mg/5 mL 15 ml PO Q72H PRN Constipation 03/19/23 08/06/23 oral suspension (Milk of Magnesia) sodium phosphates 19 gram-7 118 ml GA DAILY PRN Constipation 03/19/23 08/06/23 gram/118 mL enema (Fleet Enema) amiodarone 200 mg tablet 200 mg PO DAILY 04/28/23 08/06/23 apixaban 5 mg tablet (Eliquis) 5 mg PO BID 04/28/23 08/06/23 hydrocodone 5 mg-acetaminophen 325 1 tab PO Q4H PRN 05/14/23 08/06/23 mg tablet Lactobacillus acidophilus 2,000 mmu cells PO BID 08/06/23 08/06/23 acetaminophen 325 mg capsule 325 mg PO QID PRN 08/06/23 08/06/23 alfuzosin 10 mg tablet,extended 10 mg PO DAILY 08/06/23 08/06/23 release 24 hr collagenase clostridium histo. 250 1 applic topical DAILY 08/06/23 08/06/23 unit/gram topical ointment (Santyl) honey 80 % topical gel (MediHoney 1 applic topical DAILY 08/06/23 08/06/23 (honey)) levofloxacin 500 mg tablet 500 mg PO DAILY 08/06/23 08/06/23 levothyroxine 50 mcg capsule 50 mcg PO DAILY 08/06/23 08/06/23 Previous Rx's Medication Instructions Recorded polyethylene glycol 3350 17 gram 17 g PO DAILY #10 ea 01/29/23 oral powder packet comp.stocking,knee,long,medium #12 ea 03/11/23 alendronate 70 mg tablet See Rx Instructions PO .COMPLEX #4 04/28/23 tabs Allergies Allergy/AdvReac Type Severity Reaction Status Date / Time No Known Allergies Allergy Verified 08/06/23 13:34 Review of Systems General: Reports: ROS unobtainable due to mental status PFSH ED PFSH: Medical History Anticoagulation adequate with anticoagulant therapy Closed displaced fracture of right femoral neck Anemia Paroxysmal atrial fibrillation Dehydration Femoral hernia of left side with gangrene and obstruction Strangulated inguinal hernia Incarcerated inguinal hernia Visual hallucinations Confusion History of CVA (cerebrovascular accident) Memory changes Peripheral arterial disease Lung nodule Pulmonary hypertension Chest pain Ovarian cystic mass Incomplete bladder emptying Palpitations History of hematuria History of bladder cancer Chronic cystitis Surgical History History of resection of small bowel Hx of hernia repair Dr. Reyes 01/23/23 open left femoral hernia repair with mesh, diagnostiv laparascopy, laparotomy with small bowel resection and primary anastomosis History of ear surgery History of lateral meniscus repair of right knee History of cataract removal with insertion of prosthetic lens History of right salpingo-oophorectomy Status post surgical removal and fulguration of bladder neoplasm Family History Father Colon cancer Sister Multiple myeloma Denies family history of Ovarian cancer Diabetes Dementia Heart disease Hypercholesteremia Breast cancer Hypertension Uterine cancer Thyroid disease Stroke Social History Smoking and tobacco/nicotine status: former use of tobacco/nicotine Quit status (tobacco/nicotine): has quit using Year quit tobacco: 2020 Alcohol intake: never Household members: none Number of children: 1 Number of grandchildren: 1 Current occupational status: retired 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 Joyce/[employer]: [employer] Special joyce needs: Yes Details: call for final right Agree to transfusion: Yes Physical Exam Const: COMMON NORMALS: negative for patient oriented x3 HENMT: COMMON NORMALS: normocephalic and atraumatic HEAD & SCALP: normocephalic and atraumatic Eye: COMMON NORMALS: Equal, round and reactive pupils present and EOMs intact bilaterally PUPIL: Yes Equal, round and reactive pupils present Neck/C-Spine: COMMON NORMALS: full ROM and supple Chest: COMMONS NORMALS: normal inspection of the chest and normal palpation of entire chest wall Resp: COMMON NORMALS: normal respiratory effort, No retractions, No use of accessory muscles and clear to auscultation bilaterally AUSCULTATION: clear to auscultation bilaterally Cardio: COMMON NORMALS: regular rate, regular rhythm and No murmurs present (Cardio) RATE: regular rate RHYTHM: regular rhythm GI: COMMON NORMALS: Normal to inspection, nondistended, normoactive bowel sounds present, Soft to palpation, non-tender and no masses PALPATION: Yes Soft to palpation Extremity: COMMON NORMALS: normal to inspection and full ROM Neuro: COMMON NORMALS: moves all extremities and no focal motor deficits; negative for patient oriented x3 Psych: COMMON NORMALS: cooperative; negative for mental status grossly normal Skin: COMMON NORMALS: no rashes or lesions noted and no wounds GENERAL SKIN EXAM: no rashes or lesions noted Course Vital Signs: Vital signs: Vital Signs Temperature 97.8 F 11/29/23 20:01 Pulse Rate 56 L 11/29/23 21:22 Respiratory Rate 16 11/29/23 21:22 Blood Pressure 128/55 11/29/23 21:22 Pulse Oximetry 98 11/29/23 21:22 Oxygen Delivery Me thod Room Air 11/29/23 21:22 MDM - Altered Mental Status Medical Decision Making Patient presents for urinary retention I did place a La she had 2000 mL out her blood pressure here is much improved is now 131/56 no signs of sepsis no signs of infection she stable for discharge follow-up PCP return if worsening Medical Records I reviewed the patient's medical records. Lab Data I reviewed the patient's lab results. 11/29/23 20:23 11/29/23 20:[address] 11/29/23 20:11 IMPRESSION: No acute intracranial abnormality. Laboratory Results WBC 4.81 10^3/uL (3.29-11.43) 11/29/23 20: RBC 4.16 10^6/uL (3.85-5.65) 11/29/23 20: Hgb 11.50 g/dL (11.27-16.99) 11/29/23 20: Hct 37.2 % (36-47) 11/29/23 20: MCV 89.4 fl (85-98) 11/29/23 20: MCH 27.6 pg (27-33) 11/29/23 20: MCHC 30.9 g/dL (30-55) 11/29/23 20: RDW 19.5 % (12.1-15.1) H 11/29/23 20: Plt Count 196 10^3/cmm (157-399) 11/29/23 20: MPV 12.9 fL (7.4-10.4) H 11/29/23 20: Neut % (Auto) 72.6 % 11/29/23 20: Lymph % (Auto) 17.9 % 11/29/23 20: [place] % (Auto) 7.7 % 11/29/23 20: Eos % (Auto) 1.2 % 11/29/23: Baso % (Auto) 0.4 % 11/29/23: Neut # (Auto) 3.49 10^3/uL (1.8-7.7) 11/29/23: Lymph # (Auto) 0.9 10^3/uL (0.8-4.8) 11/29/23 20: [place] # (Auto) 0.4 10^3/uL (0.2-0.9) 11/29/23: Eos # (Auto) 0.1 10^3/uL (0.0-0.8) 11/29/23: Baso # (Auto) 0.0 10^3/uL (0.0-0.1) 11/29/23 20: Nucleated RBC % (auto) 0 % 11/29/23: Nucleated RBCs # 0.0 /100WBC 11/29/23 20:23 PT 18.50 SECONDS (12.1-14.9) H 11/29/23 20:23 INR 1.49 (0.8-1.2) H 11/29/23 20:23 Sodium 145 mmol/L (136-145) 11/29/23 20:23 Potassium 4.1 mmol/L (3.5-5.1) 11/29/23 20:23 Chloride 107 mmol/L (98-107) 11/29/23 20:23 Carbon Dioxide 25 mmol/L (22-29) 11/29/23 20:23 Anion Gap 17.1 (5-19) 11/29/23 20:23 BUN 29 mg/dL (8-23) H 11/29/23 20:23 Creatinine 1.3 mg/dL (0.5-0.9) H 11/29/23 20:23 GFR Calculation Not Reportable 11/29/23 20:23 Glucose 135 mg/dL (65-115) H 11/29/23 20:23 POC Glucose 122 mg/dL (70-110) H 11/29/23 20:51 Calculated Osmolality 308 mOsm/kg (285-295) H 11/29/23 20:23 Lactic Acid 1.9 mmol/L (0.5-2.2) 11/29/23 20:23 Calcium 9.3 mg/dL (8.5-10.5) 11/29/23 20:23 Magnesium 2.1 mg/dL (1.7-2.3) 11/29/23 20:23 Total Bilirubin 0.3 mg/dL (0.15-1.2) 11/29/23 20:23 AST 13 U/L (0-32) 11/29/23 20:23 ALT 9 U/L (0-33) 11/29/23 20:23 Alkaline Phosphatase 101 U/L (35-105) 11/29/23 20:23 Total Protein 6.9 g/dL (6.6-8.7) 11/29/23 20:23 Albumin 3.9 g/dL (3.5-5.2) 11/29/23 20:23 Globulin 3.0 g/dL (1.3-4.6) 11/29/23 20:23 Lipase 33 U/L (13-60) 11/29/23 20:23 TSH 3.57 uIU/mL (0.27-4.20) 11/29/23 20:23 Urine Color Yellow (Yellow) 11/29/23 21:15 Urine Appearance Cloudy (CLEAR) A 11/29/23 21:15 Urine pH 5.5 (5-7) 11/29/23 21:15 Ur Specific Johnson 1.016 (1.005-1.030) 11/29/23 21:15 Urine Protein Negative (Negative) 11/29/23 21:15 Urine Glucose (UA) Negative (Normal) 11/29/23 21:15 Urine Ketones Negative (Negative) 11/29/23 21:15 Urine Blood Negative (Negative) 11/29/23 21:15 Urine Nitrate Negative (Negative) 11/29/23 21:15 Urine Bilirubin Negative (Negative) 11/29/23 21:15 Urine Urobilinogen 1.0 mg/dL (Negative) 11/29/23 21:15 Ur Leukocyte Esterase Negative (Negative) 11/29/23 21:15 Urine RBC 0-2 /hpf (0-2) 11/29/23 21:15 Urine WBC 0-5 /hpf (0-5) 11/29/23 21:15 Ur Squamous Epith Cells 0-5 /hpf (0-5) 11/29/23 21:15 Amorphous Sediment Not Reportable 11/29/23 21:15 Urine Bacteria 4+ /hpf (NONE) H 11/29/23 21:15 Hyaline Casts 0.40 /lpf 11/29/23 21:15 All radiology interpretation(s) finalized by discharge Discharge Plan Discharge Patient Disposition: Home Clinical Impression: Acute urinary retention Condition: Stable Prescriptions: No Action Santyl 250 unit/gram ointment 1 applic topical DAILY levofloxacin 500 mg tablet 500 mg PO DAILY Lactobacillus acidophilus Capsule 2,000 mmu cells PO BID alfuzosin 10 mg tablet extended release 24 hr 10 mg PO DAILY Rx Instructions: administer after the same meal each day acetaminophen 325 mg capsule 325 mg PO QID PRN levothyroxine 50 mcg capsule 50 mcg PO DAILY MediHoney (honey) 80 % gel 1 applic topical DAILY hydrocodone-acetaminophen 5-325 mg tablet 1 tab PO Q4H PRN (DME) comp.stocking,knee,long,medium Misc See Rx Instructions .Route Qty: 12 0RF Rx Instructions: As directed alendronate 70 mg tablet See Rx Instructions PO .COMPLEX Qty: 4 0RF Rx Instructions: 1 tab weekly on empty stomach with full glass water. Do not eat/lie down for 1 hour after Prevagen 1 cap PO QAM polyethylene glycol 3350 17 gram Powder In Packet 17 g PO DAILY Qty: 10 0RF magnesium hydroxide [Milk of Magnesia] 400 mg/5 mL Suspension 15 ml PO Q72H PRN (Reason: Constipation) bisacodyl [Dulcolax (bisacodyl)] 10 mg Suppository 10 mg GA DAILY PRN (Reason: Constipation) Fleet Enema 19-7 gram/118 mL Enema 118 ml GA DAILY PRN (Reason: Constipation) bisacodyl [Dulcolax (bisacodyl)] 5 mg Tablet,Delayed Release (Dr/Ec) 5 mg PO DAILY PRN (Reason: Constipation) amiodarone 200 mg tablet 200 mg PO DAILY Eliquis 5 mg tablet 5 mg PO BID Discharge Orders: Discharge ED (Routine); Ordered 11/29/23 Ordered By: Kavon Lucas Referrals: Robin Ivey DO [Primary Care Provider] - Discharge Diet: Advance as tolerated Discharge Activity: Resume usual activity Patient Instructions: Acute Urinary Retention in Women (ED) Coding Level of Care Code ED Corner Brace Block Machine Operator for Renea Chakraborty
[2023-11-29 20:33] LABS: Basophils % 0.4 %; Eosinophils # 0.1 10^3/uL (0.0-0.8); Eosinophils % 1.2 %; Hematocrit 37.2 % (36-47); Lymphocytes # 0.9 10^3/uL (0.8-4.8); Lymphocytes % 17.9 %; Mean Corpuscular HGB Conc 30.9 g/dL (30-55); Mean Corpuscular Hemoglobin 27.6 pg (27-33); Mean Corpuscular Volume 89.4 fl (85-98); Mean Platelet Volume 12.9 fL (7.4-10.4); Monocytes # 0.4 10^3/uL (0.2-0.9); Monocytes % 7.7 %; Neutrophils # 3.49 10^3/uL (1.8-7.7); Neutrophils % 72.6 %; Nucleated Red Blood Cells % 0 %; Platelet Count 196 10^3/cmm (157-399); Red Blood Count 4.16 10^6/uL (3.85-5.65); Red Cell Distribution Width 19.5 % (12.1-15.1); White Blood Count 4.81 10^3/uL (3.29-11.43)
[2023-11-29 20:50] LABS: INR 1.49 (0.8-1.2)
[2023-11-29 20:53] LABS: Glucose Point of Care 122 mg/dL (70-110)
[2023-11-29 20:58] LABS: Lactic Sepsis W/Reflex 1.9 mmol/L (0.5-2.2)
--- NOTE | 2023-11-29 20:59 | ECG_ITS ---
[facility] Test Date: 2023-11-29 Pat Name: Destiny Quintana Department: Room: Gender: Female It Consulting Manager: : [id number] Requested By: Kavon Lucas Order Number: [id number] Lizbet MD: Ren Baldwin M.D. Measurements Intervals [place] Rate: 54 P: 163 WA: 197 QRS: -34 QRSD: 89 T: 69 QT: 382 QTc: 363 Interpretive Statements SUPRAVENTRICULAR BRADYCARDIA. BASELINE ELECTRICAL ARTIFACT LEFT AXIS DEVIATION [QRS AXIS < -30] LOW QRS VOLTAGE IN PRECORDIAL LEADS [QRS DEFLECTION < 1.0 mV IN CHEST LEADS] POSSIBLE ANTERIOR MYOCARDIAL INFARCTION , OF INDETERMINATE AGE [30 ms Q WAVE IN V3/V4, OR R < 0.2 mV IN V4] Compared to ECG 04/27/2023 19:58:56 Bradycardia, nonsinus now present Myocardial infarct finding now present Sinus rhythm no longer present Electronically Signed On 12-01-2023 7:39:54 CDT by Ren Baldwin M.D. [email or web address]
[2023-11-29 21:01] VITALS: BP 132/69; PULSE 52; RESP 13; O2SAT 99
[2023-11-29] MEDS: sodium chloride 0.9% 1,000 ML 999 ML IV ×2 (21:03)
[2023-11-29 21:09] LABS: Alanine Aminotransferase 9 U/L (0-33); Albumin Level 3.9 g/dL (3.5-5.2); Alkaline Phosphatase 101 U/L (35-105); Anion Gap 17.1 (5-19); Aspartate Amino Transferase 13 U/L (0-32); Blood Urea Nitrogen 29 mg/dL (8-23); Calcium 9.3 mg/dL (8.5-10.5); Carbon Dioxide 25 mmol/L (22-29); Chloride 107 mmol/L (98-107); Glucose 135 mg/dL (65-115); Lipase 33 U/L (13-60); Magnesium 2.1 mg/dL (1.7-2.3); Osmolality Calculated 308 mOsm/kg (285-295); Potassium 4.1 mmol/L (3.5-5.1); Sodium 145 mmol/L (136-145); Thyroid Stimulating Hormone 3.57 uIU/mL (0.27-4.20); Total Bilirubin 0.3 mg/dL (0.15-1.2); Total Protein 6.9 g/dL (6.6-8.7)
[2023-11-29 21:22] VITALS: BP 128/55; PULSE 56; RESP 16; O2SAT 98
[2023-11-29 21:25] LABS: Charge for UA Resulting for Rev
[2023-11-29 21:28] LABS: Bilirubin Urine Negative (Negative); Blood Urine Negative (Negative); Glucose Urine UA Negative (Normal); Ketones Urine Negative (Negative); Leukocyte Esterase Urine Negative (Negative); Nitrate Urine Negative (Negative); Protein Urine Negative (Negative); Specific Gravity, Urine 1.016 (1.005-1.030); Urine Appearance Cloudy (CLEAR); Urine Color Yellow (Yellow); pH Urine 5.5 (5-7)
[2023-11-29 21:33] LABS: Bacteria Urine 4+ /hpf; RBC Urine 0-2 /hpf (0-2); Squamous Epithelial Cell Urine 0-5 /hpf (0-5); WBC Urine 0-5 /hpf (0-5)
[2023-11-29 22:15] VITALS: BP 135/66; PULSE 48; RESP 13; O2SAT 95
[2023-11-29 23:30] VITALS: BP 132/71; PULSE 47; RESP 14; O2SAT 96
--- NOTE | 2023-11-29 23:59 | PC.NURSE ---
ordered hodgson placement. Second nurse needed for assistance BETTINA. Followed sterile technique.
[2023-11-30] VITALS (7 sets, daily range): BP systolic 118–146; BP diastolic 57–76; PULSE 45–54; RESP 12–19; TEMP 36.6; O2SAT 95–97
== END 2023-11-30 03:03 | disposition home or self-care (01) ==
PROVIDERS: Emergency Provider Emergency Medicine; PCP Internal Medicine
DX: R33.9 Retention of urine, unspecified (principal); Z79.01 Long term (current) use of anticoagulants; Z87.891 Personal history of nicotine dependence; Z86.73 Personal history of transient ischemic attack (TIA), and cerebral infarction without residual deficits; Z85.51 Personal history of malignant neoplasm of bladder
CPT/HCPCS: 36416; 51702; 70450; 71045; 80053; 81003; 81015; 82962; 83605; 83690; 83735; 84443; 85025; 85610; 93005; 99285; J7030

== ENCOUNTER 2023-12-05 04:50 | Emergency (ER) | payer MEDICARE, MEDICAID, SELFPAY ==
[2023-12-05 04:51] VITALS: BP 102/59; PULSE 54; RESP 16; TEMP 36.7; O2SAT 94
--- NOTE | 2023-12-05 05:05 | W.ED.FEMALGU ---
Documented by User: Shavon Agarwal MD 12/05/23 05:38 HPI - Female Genitourinary General: Chief complaint: Urogenital-Female Stated complaint: Not urinating Time Seen by Provider: 12/05/23 04:52 History of Present Illness: 78-year-old female with a history of dementia, who lives in a [place] [facility] on the dementia tabares, atrial fibrillation, stroke, pulmonary hypertension, and chronic cystitis who presents to the emergency room by ambulance with concern that she is not making any urine. Apparently she may be acting a little different than her normal as well. An In-N-Out cath was attempted at the [place] [facility] because she had not had urine in 8 to 10 hours and no urine was produced. At this time an ambulance was called. No known fevers. No nausea or vomiting. No new focal motor deficits. She is pleasant on presentation. Related Data Home Medications Medication Instructions Recorded Confirmed Prevagen 1 cap PO QAM 12/19/22 08/06/23 bisacodyl 10 mg rectal suppository 10 mg FL DAILY PRN Constipation 03/19/23 08/06/23 (Dulcolax (bisacodyl)) bisacodyl 5 mg tablet,delayed 5 mg PO DAILY PRN Constipation 03/19/23 08/06/23 release (Dulcolax (bisacodyl)) magnesium hydroxide 400 mg/5 mL 15 ml PO Q72H PRN Constipation 03/19/23 08/06/23 oral suspension (Milk of Magnesia) sodium phosphates 19 gram-7 118 ml FL DAILY PRN Constipation 03/19/23 08/06/23 gram/118 mL enema (Fleet Enema) amiodarone 200 mg tablet 200 mg PO DAILY 04/28/23 08/06/23 apixaban 5 mg tablet (Eliquis) 5 mg PO BID 04/28/23 08/06/23 hydrocodone 5 mg-acetaminophen 325 1 tab PO Q4H PRN 05/14/23 08/06/23 mg tablet Lactobacillus acidophilus 2,000 mmu cells PO BID 08/06/23 08/06/23 acetaminophen 325 mg capsule 325 mg PO QID PRN 08/06/23 08/06/23 alfuzosin 10 mg tablet,extended 10 mg PO DAILY 08/06/23 08/06/23 release 24 hr collagenase clostridium histo. 250 1 applic topical DAILY 08/06/23 08/06/23 unit/gram topical ointment (Santyl) honey 80 % topical gel (MediHoney 1 applic topical DAILY 08/06/23 08/06/23 (honey)) levofloxacin 500 mg tablet 500 mg PO DAILY 08/06/23 08/06/23 levothyroxine 50 mcg capsule 50 mcg PO DAILY 08/06/23 08/06/23 Previous Rx's Medication Instructions Recorded polyethylene glycol 3350 17 gram 17 g PO DAILY #10 ea 01/29/23 oral powder packet comp.stocking,knee,long,medium #12 ea 03/11/23 alendronate 70 mg tablet See Rx Instructions PO .COMPLEX #4 04/28/23 tabs cephalexin 500 mg capsule 500 mg PO TID 7 days #21 caps 12/05/23 Allergies Allergy/AdvReac Type Severity Reaction Status Date / Time No Known Allergies Allergy Verified 08/06/23 13:34 Review of Systems Narrative: Constitutional symptoms: Negative except as documented in HPI. Skin symptoms: Negative except as documented in HPI. Eye symptoms: Negative except as documented in HPI. ENMT symptoms: Negative except as documented in HPI. Respiratory symptoms: Negative except as documented in HPI. Cardiovascular symptoms: Negative except as documented in HPI. Gastrointestinal symptoms: Negative except as documented in HPI. Genitourinary symptoms: Negative except as documented in HPI. Musculoskeletal symptoms: Negative except as documented in HPI. Neurologic symptoms: Negative except as documented in HPI. Psychiatric symptoms: Negative except as documented in HPI. Endocrine symptoms: Negative except as documented in HPI. [facility] ED PFSH: Medical History Anticoagulation adequate with anticoagulant therapy Closed displaced fracture of right femoral neck Anemia Paroxysmal atrial fibrillation Dehydration Femoral hernia of left side with gangrene and obstruction Strangulated inguinal hernia Incarcerated inguinal hernia Visual hallucinations Confusion History of CVA (cerebrovascular accident) Memory changes Peripheral arterial disease Lung nodule Pulmonary hypertension Chest pain Ovarian cystic mass Incomplete bladder emptying Palpitations History of hematuria History of bladder cancer Chronic cystitis Surgical History History of resection of small bowel Hx of hernia repair Dr. Reyes 01/23/23 open left femoral hernia repair with mesh, diagnostiv laparascopy, laparotomy with small bowel resection and primary anastomosis History of ear surgery History of lateral meniscus repair of right knee History of cataract removal with insertion of prosthetic lens History of right salpingo-oophorectomy Status post surgical removal and fulguration of bladder neoplasm Family History Father Colon cancer Sister Multiple myeloma Denies family history of Ovarian cancer Diabetes Dementia Heart disease Hypercholesteremia Breast cancer Hypertension Uterine cancer Thyroid disease Stroke Social History Smoking and tobacco/nicotine status: former use of tobacco/nicotine Quit status (tobacco/nicotine): has quit using Year quit tobacco: 2020 Alcohol intake: never Household members: none Number of children: 1 Number of grandchildren: 1 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 Skin: Warm, dry. Head: Normocephalic, atraumatic. Neck: Supple, trachea midline. Eye: Extraocular movements are intact. Ears, nose, mouth and throat: mucosa moist. Cardiovascular: Regular, Normal peripheral perfusion. Respiratory: Lungs are clear to auscultation, respirations are non-labored, breath sounds are equal, Symmetrical chest wall expansion. Gastrointestinal: Soft, Nontender, Non distended Musculoskeletal: Normal ROM, no deformity. Neurological: Alert No focal neurological deficit observed. Psychiatric: Cooperative, appropriate mood & affect. Course Vital Signs: Vital signs: Vital Signs Temperature 98.1 F 12/05/23 04:51 Pulse Rate 56 L 12/05/23 06:14 Respiratory Rate 18 12/05/23 06:14 Blood Pressure 133/65 12/05/23 06:14 Pulse Oximetry 97 12/05/23 06:14 Oxygen Delivery Me thod Room Air 12/05/23 06:14 MDM - Female Medical Decision Making Medical decision making: Differential diagnosis for patient with urinary retention including but not limited to and based on the above HPI, review of systems and physical exam:-: Urinary retention. Urinary tract infection. concerns for systemic infection, renal dysfunction - Workup: labwork ordered to evaluate, rule in and rule out above pathologies. La was inserted and greater than 600 cc of urine have been removed so far. Patient's blood pressure was soft and had reported no urine output so I gave a liter fluid. Come to find out she is retaining and so a La has been placed and left. I have also given Rocephin empirically for urinary tract infection given that she has urinary retention. Patient care transitioned to Dr. Lucas at shift change Lab Data 12/05/23 05:50 12/05/23 05:50 Laboratory Results WBC 5.99 10^3/uL (3.29-11.43) 12/05/23 05:50 RBC 3.77 10^6/uL (3.85-5.65) L 12/05/23 05:50 Hgb 10.60 g/dL (11.27-16.99) L 12/05/23 05:50 Hct 33.8 % (36-47) L 12/05/23 05:50 MCV 89.7 fl (85-98) 12/05/23 05:50 MCH 28.1 pg (27-33) 12/05/23 05:50 MCHC 31.4 g/dL (30-55) 12/05/23 05:50 RDW 20.1 % (12.1-15.1) H 12/05/23 05:50 Plt Count 151 10^3/cmm (157-399) L 12/05/23 05:50 MPV 13.0 fL (7.4-10.4) H 12/05/23 05:50 Neut % (Auto) 78.4 % 12/05/23 05:50 Lymph % (Auto) 12.2 % 12/05/23 05:50 [place] % (Auto) 7.2 % 12/05/23 05:50 Eos % (Auto) 1.7 % 12/05/23 05:50 Baso % (Auto) 0.2 % 12/05/23 05:50 Neut # (Auto) 4.70 10^3/uL (1.8-7.7) 12/05/23 05:50 Lymph # (Auto) 0.7 10^3/uL (0.8-4.8) L 12/05/23 05:50 [place] # (Auto) 0.4 10^3/uL (0.2-0.9) 12/05/23 05:50 Eos # (Auto) 0.1 10^3/uL (0.0-0.8) 12/05/23 05:50 Baso # (Auto) 0.0 10^3/uL (0.0-0.1) 12/05/23 05:50 Nucleated RBC % (auto) 0 % 12/05/23 05:50 Nucleated RBCs # 0.0 /100WBC 12/05/23 05:50 Sodium 145 mmol/L (136-145) 12/05/23 05:50 Potassium 4.3 mmol/L (3.5-5.1) 12/05/23 05:50 Chloride 109 mmol/L (98-107) H 12/05/23 05:50 Carbon Dioxide 26 mmol/L (22-29) 12/05/23 05:50 Anion Gap 14.3 (5-19) 12/05/23 05:50 BUN 32 mg/dL (8-23) H 12/05/23 05:50 Creatinine 1.1 mg/dL (0.5-0.9) H 12/05/23 05:50 GFR Calculation Not Reportable 12/05/23 05:50 Glucose 88 mg/dL (65-115) 12/05/23 05:50 Calculated Osmolality 306 mOsm/kg (285-295) H 12/05/23 05:50 Lactic Acid 0.8 mmol/L (0.5-2.2) 12/05/23 05:50 Calcium 8.8 mg/dL (8.5-10.5) 12/05/23 05:50 Total Bilirubin 0.5 mg/dL (0.15-1.2) 12/05/23 05:50 AST 48 U/L (0-32) H 12/05/23 05:50 ALT 23 U/L (0-33) 12/05/23 05:50 Alkaline Phosphatase 102 U/L (35-105) 12/05/23 05:50 C-Reactive Protein 35.4 mg/L (0.0-4.9) H 12/05/23 05:50 Total Protein 6.5 g/dL (6.6-8.7) L 12/05/23 05:50 Albumin 3.5 g/dL (3.5-5.2) 12/05/23 05:50 Globulin 3.0 g/dL (1.3-4.6) 12/05/23 05:50 Urine Color Yellow (Yellow) 12/05/23 05:31 Urine Appearance Turbid (CLEAR) A 12/05/23 05:31 Urine pH 6.0 (5-7) 12/05/23 05:31 Ur Specific [place] 1.013 (1.005-1.030) 12/05/23 05:31 Urine Protein 2+ (Negative) A 12/05/23 05:31 Urine Glucose (UA) Negative (Normal) 12/05/23 05:31 Urine Ketones Negative (Negative) 12/05/23 05:31 Urine Blood 1+ (Negative) A 12/05/23 05:31 Urine Nitrate Positive (Negative) A 12/05/23 05:31 Urine Bilirubin Negative (Negative) 12/05/23 05:31 Urine Urobilinogen 1.0 mg/dL (Negative) 12/05/23 05:31 Ur Leukocyte Esterase 3+ (Negative) A 12/05/23 05:31 Urine RBC 3-5 /hpf (0-2) 12/05/23 05:31 Urine WBC >100 /hpf (0-5) H 12/05/23 05:31 Ur Squamous Epith Cells 0-5 /hpf (0-5) 12/05/23 05:31 Amorphous Sediment Not Reportable 12/05/23 05:31 Urine Bacteria 4+ /hpf (NONE) H 12/05/23 05:31 Hyaline Casts 0.81 /lpf 12/05/23 05:31 Discharge Plan Discharge Patient Disposition: Home Clinical Impression: Acute cystitis Condition: Stable Prescriptions: New cephalexin 500 mg capsule 500 mg PO TID 7 Days Qty: 21 0RF No Action Santyl 250 unit/gram ointment 1 applic topical DAILY levofloxacin 500 mg tablet 500 mg PO DAILY Lactobacillus acidophilus Capsule 2,000 mmu cells PO BID alfuzosin 10 mg tablet extended release 24 hr 10 mg PO DAILY Rx Instructions: administer after the same meal each day acetaminophen 325 mg capsule 325 mg PO QID PRN levothyroxine 50 mcg capsule 50 mcg PO DAILY MediHoney (honey) 80 % gel 1 applic topical DAILY hydrocodone-acetaminophen 5-325 mg tablet 1 tab PO Q4H PRN (DME) comp.stocking,knee,long,medium Misc See Rx Instructions .Route Qty: 12 0RF Rx Instructions: As directed alendronate 70 mg tablet See Rx Instructions PO .COMPLEX Qty: 4 0RF Rx Instructions: 1 tab weekly on empty stomach with full glass water. Do not eat/lie down for 1 hour after Prevagen 1 cap PO QAM polyethylene glycol 3350 17 gram Powder In Packet 17 g PO DAILY Qty: 10 0RF magnesium hydroxide [Milk of Magnesia] 400 mg/5 mL Suspension 15 ml PO Q72H PRN (Reason: Constipation) bisacodyl [Dulcolax (bisacodyl)] 10 mg Suppository 10 mg FL DAILY PRN (Reason: Constipation) Fleet Enema 19-7 gram/118 mL Enema 118 ml FL DAILY PRN (Reason: Constipation) bisacodyl [Dulcolax (bisacodyl)] 5 mg Tablet,Delayed Release (Dr/Ec) 5 mg PO DAILY PRN (Reason: Constipation) amiodarone 200 mg tablet 200 mg PO DAILY Eliquis 5 mg tablet 5 mg PO BID Discharge Orders: Discharge ED (Routine); Ordered 12/05/23 Ordered By: Kavon Lucas Referrals: Robin Ivey DO [Primary Care Provider] - Discharge Diet: Advance as tolerated Discharge Activity: Resume usual activity Patient Instructions: Urinary Tract Infection in Women (ED) Coding Level of Care Code ED Cryptologic Support Specialist for Chg Fwd Documented by User: Kavon Lucas MD 12/05/23 08:29 HPI - Female Genitourinary General: Chief complaint: Urogenital-Female Stated complaint: Not urinating Time Seen by Provider: 12/05/23 04:52 Related Data Home Medications Medication Instructions Recorded Confirmed Prevagen 1 cap PO QAM 12/19/22 08/06/23 bisacodyl 10 mg rectal suppository 10 mg FL DAILY PRN Constipation 03/19/23 08/06/23 (Dulcolax (bisacodyl)) bisacodyl 5 mg tablet,delayed 5 mg PO DAILY PRN Constipation 03/19/23 08/06/23 release (Dulcolax (bisacodyl)) magnesium hydroxide 400 mg/5 mL 15 ml PO Q72H PRN Constipation 03/19/23 08/06/23 oral suspension (Milk of Magnesia) sodium phosphates 19 gram-7 118 ml FL DAILY PRN Constipation 03/19/23 08/06/23 gram/118 mL enema (Fleet Enema) amiodarone 200 mg tablet 200 mg PO DAILY 04/28/23 08/06/23 apixaban 5 mg tablet (Eliquis) 5 mg PO BID 04/28/23 08/06/23 hydrocodone 5 mg-acetaminophen 325 1 tab PO Q4H PRN 05/14/23 08/06/23 mg tablet Lactobacillus acidophilus 2,000 mmu cells PO BID 08/06/23 08/06/23 acetaminophen 325 mg capsule 325 mg PO QID PRN 08/06/23 08/06/23 alfuzosin 10 mg tablet,extended 10 mg PO DAILY 08/06/23 08/06/23 release 24 hr collagenase clostridium histo. 250 1 applic topical DAILY 08/06/23 08/06/23 unit/gram topical ointment (Santyl) honey 80 % topical gel (MediHoney 1 applic topical DAILY 08/06/23 08/06/23 (honey)) levofloxacin 500 mg tablet 500 mg PO DAILY 08/06/23 08/06/23 levothyroxine 50 mcg capsule 50 mcg PO DAILY 08/06/23 08/06/23 Previous Rx's Medication Instructions Recorded polyethylene glycol 3350 17 gram 17 g PO DAILY #10 ea 01/29/23 oral powder packet comp.stocking,knee,long,medium #12 ea 03/11/23 alendronate 70 mg tablet See Rx Instructions PO .COMPLEX #4 04/28/23 tabs cephalexin 500 mg capsule 500 mg PO TID 7 days #21 caps 12/05/23 Allergies Allergy/AdvReac Type Severity Reaction Status Date / Time No Known Allergies Allergy Verified 08/06/23 13:34 PFS ED PFSH: Medical History Anticoagulation adequate with anticoagulant therapy Closed displaced fracture of right femoral neck Anemia Paroxysmal atrial fibrillation Dehydration Femoral hernia of left side with gangrene and obstruction Strangulated inguinal hernia Incarcerated inguinal hernia Visual hallucinations Confusion History of CVA (cerebrovascular accident) Memory changes Peripheral arterial disease Lung nodule Pulmonary hypertension Chest pain Ovarian cystic mass Incomplete bladder emptying Palpitations History of hematuria History of bladder cancer Chronic cystitis Surgical History History of resection of small bowel Hx of hernia repair Dr. Reyes 01/23/23 open left femoral hernia repair with mesh, diagnostiv laparascopy, laparotomy with small bowel resection and primary anastomosis History of ear surgery History of lateral meniscus repair of right knee History of cataract removal with insertion of prosthetic lens History of right salpingo-oophorectomy Status post surgical removal and fulguration of bladder neoplasm Family History Father Colon cancer Sister Multiple myeloma Denies family history of Ovarian cancer Diabetes Dementia Heart disease Hypercholesteremia Breast cancer Hypertension Uterine cancer Thyroid disease Stroke Social History Smoking and tobacco/nicotine status: former use of tobacco/nicotine Quit status (tobacco/nicotine): has quit using Year quit tobacco: 2020 Alcohol intake: never Household members: none Number of children: 1 Number of grandchildren: 1 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 Joyce/Taoism: Yarsanism Special joyce needs: Yes Details: call oil field worker for final right Agree to transfusion: Yes Course Vital Signs: Vital signs: Vital Signs Temperature 98.1 F 12/05/23 04:51 Pulse Rate 56 L 12/05/23 06:14 Respiratory Rate 18 12/05/23 06:14 Blood Pressure 133/65 12/05/23 06:14 Pulse Oximetry 97 12/05/23 06:14 Oxygen Delivery Me thod Room Air 12/05/23 06:14 MDM - Female Medical Decision Making Medical decision making: Differential diagnosis for patient with urinary retention including but not limited to and based on the above HPI, review of systems and physical exam:-: Urinary retention. Urinary tract infection. concerns for systemic infection, renal dysfunction - Workup: labwork ordered to evaluate, rule in and rule out above pathologies. La was inserted and greater than 600 cc of urine have been removed so far. Patient's blood pressure was soft and had reported no urine output so I gave a liter fluid. Come to find out she is retaining and so a La has been placed and left. I have also given Rocephin empirically for urinary tract infection given that she has urinary retention. Patient care transitioned to Dr. Lucas at shift change Patient presents here with a urinary tract infection her blood pressure here has been normal white count lactate is normal no signs of sepsis did give her IV antibiotics we will prescribe her Keflex as well she is stable for discharge follow-up with PCP return if worsening Lab Data 12/05/23 05:50 12/05/23 05:50 Laboratory Results WBC 5.99 10^3/uL (3.29-11.43) 12/05/23 05:50 RBC 3.77 10^6/uL (3.85-5.65) L 12/05/23 05:50 Hgb 10.60 g/dL (11.27-16.99) L 12/05/23 05:50 Hct 33.8 % (36-47) L 12/05/23 05:50 MCV 89.7 fl (85-98) 12/05/23 05:50 MCH 28.1 pg (27-33) 12/05/23 05:50 MCHC 31.4 g/dL (30-55) 12/05/23 05:50 RDW 20.1 % (12.1-15.1) H 12/05/23 05:50 Plt Count 151 10^3/cmm (157-399) L 12/05/23 05:50 MPV 13.0 fL (7.4-10.4) H 12/05/23 05:50 Neut % (Auto) 78.4 % 12/05/23 05:50 Lymph % (Auto) 12.2 % 12/05/23 05:50 [place] % (Auto) 7.2 % 12/05/23 05:50 Eos % (Auto) 1.7 % 12/05/23 05:50 Baso % (Auto) 0.2 % 12/05/23 05:50 Neut # (Auto) 4.70 10^3/uL (1.8-7.7) 12/05/23 05:50 Lymph # (Auto) 0.7 10^3/uL (0.8-4.8) L 12/05/23 05:50 [place] # (Auto) 0.4 10^3/uL (0.2-0.9) 12/05/23 05:50 Eos # (Auto) 0.1 10^3/uL (0.0-0.8) 12/05/23 05:50 Baso # (Auto) 0.0 10^3/uL (0.0-0.1) 12/05/23 05:50 Nucleated RBC % (auto) 0 % 12/05/23 05:50 Nucleated RBCs # 0.0 /100WBC 12/05/23 05:50 Sodium 145 mmol/L (136-145) 12/05/23 05:50 Potassium 4.3 mmol/L (3.5-5.1) 12/05/23 05:50 Chloride 109 mmol/L (98-107) H 12/05/23 05:50 Carbon Dioxide 26 mmol/L (22-29) 12/05/23 05:50 Anion Gap 14.3 (5-19) 12/05/23 05:50 BUN 32 mg/dL (8-23) H 12/05/23 05:50 Creatinine 1.1 mg/dL (0.5-0.9) H 12/05/23 05:50 GFR Calculation Not Reportable 12/05/23 05:50 Glucose 88 mg/dL (65-115) 12/05/23 05:50 Calculated Osmolality 306 mOsm/kg (285-295) H 12/05/23 05:50 Lactic Acid 0.8 mmol/L (0.5-2.2) 12/05/23 05:50 Calcium 8.8 mg/dL (8.5-10.5) 12/05/23 05:50 Total Bilirubin 0.5 mg/dL (0.15-1.2) 12/05/23 05:50 AST 48 U/L (0-32) H 12/05/23 05:50 ALT 23 U/L (0-33) 12/05/23 05:50 Alkaline Phosphatase 102 U/L (35-105) 12/05/23 05:50 C-Reactive Protein 35.4 mg/L (0.0-4.9) H 12/05/23 05:50 Total Protein 6.5 g/dL (6.6-8.7) L 12/05/23 05:50 Albumin 3.5 g/dL (3.5-5.2) 12/05/23 05:50 Globulin 3.0 g/dL (1.3-4.6) 12/05/23 05:50 Urine Color Yellow (Yellow) 12/05/23 05:31 Urine Appearance Turbid (CLEAR) A 12/05/23 05:31 Urine pH 6.0 (5-7) 12/05/23 05:31 Ur Specific [place] 1.013 (1.005-1.030) 12/05/23 05:31 Urine Protein 2+ (Negative) A 12/05/23 05:31 Urine Glucose (UA) Negative (Normal) 12/05/23 05:31 Urine Ketones Negative (Negative) 12/05/23 05:31 Urine Blood 1+ (Negative) A 12/05/23 05:31 Urine Nitrate Positive (Negative) A 12/05/23 05:31 Urine Bilirubin Negative (Negative) 12/05/23 05:31 Urine Urobilinogen 1.0 mg/dL (Negative) 12/05/23 05:31 Ur Leukocyte Esterase 3+ (Negative) A 12/05/23 05:31 Urine RBC 3-5 /hpf (0-2) 12/05/23 05:31 Urine WBC >100 /hpf (0-5) H 12/05/23 05:31 Ur Squamous Epith Cells 0-5 /hpf (0-5) 12/05/23 05:31 Amorphous Sediment Not Reportable 12/05/23 05:31 Urine Bacteria 4+ /hpf (NONE) H 12/05/23 05:31 Hyaline Casts 0.81 /lpf 12/05/23 05:31 No radiology studies performed this visit Discharge Plan Discharge Patient Disposition: Home Clinical Impression: Acute cystitis Condition: Stable Prescriptions: New cephalexin 500 mg capsule 500 mg PO TID 7 Days Qty: 21 0RF No Action Santyl 250 unit/gram ointment 1 applic topical DAILY levofloxacin 500 mg tablet 500 mg PO DAILY Lactobacillus acidophilus Capsule 2,000 mmu cells PO BID alfuzosin 10 mg tablet extended release 24 hr 10 mg PO DAILY Rx Instructions: administer after the same meal each day acetaminophen 325 mg capsule 325 mg PO QID PRN levothyroxine 50 mcg capsule 50 mcg PO DAILY MediHoney (honey) 80 % gel 1 applic topical DAILY hydrocodone-acetaminophen 5-325 mg tablet 1 tab PO Q4H PRN (DME) comp.stocking,knee,long,medium Misc See Rx Instructions .Route Qty: 12 0RF Rx Instructions: As directed alendronate 70 mg tablet See Rx Instructions PO .COMPLEX Qty: 4 0RF Rx Instructions: 1 tab weekly on empty stomach with full glass water. Do not eat/lie down for 1 hour after Prevagen 1 cap PO QAM polyethylene glycol 3350 17 gram Powder In Packet 17 g PO DAILY Qty: 10 0RF magnesium hydroxide [Milk of Magnesia] 400 mg/5 mL Suspension 15 ml PO Q72H PRN (Reason: Constipation) bisacodyl [Dulcolax (bisacodyl)] 10 mg Suppository 10 mg FL DAILY PRN (Reason: Constipation) Fleet Enema 19-7 gram/118 mL Enema 118 ml FL DAILY PRN (Reason: Constipation) bisacodyl [Dulcolax (bisacodyl)] 5 mg Tablet,Delayed Release (Dr/Ec) 5 mg PO DAILY PRN (Reason: Constipation) amiodarone 200 mg tablet 200 mg PO DAILY Eliquis 5 mg tablet 5 mg PO BID Discharge Orders: Discharge ED (Routine); Ordered 12/05/23 Ordered By: Kavon Lucas Referrals: Robin Ivey DO [Primary Care Provider] - Discharge Diet: Advance as tolerated Discharge Activity: Resume usual activity Patient Instructions: Urinary Tract Infection in Women (ED) Coding Level of Care Code ED Cryptologic Support Specialist for Renea Chakraborty
[2023-12-05 05:37] LABS: Bilirubin Urine Negative (Negative); Blood Urine 1+ (Negative); Glucose Urine UA Negative (Normal); Ketones Urine Negative (Negative); Leukocyte Esterase Urine 3+ (Negative); Nitrate Urine Positive (Negative); Protein Urine 2+ (Negative); Specific Gravity, Urine 1.013 (1.005-1.030); Urine Appearance Turbid (CLEAR); Urine Color Yellow (Yellow)
[2023-12-05 05:42] LABS: Bacteria Urine 4+ /hpf; Hyaline Casts Urine 0.81 /lpf; Squamous Epithelial Cell Urine 0-5 /hpf (0-5); WBC Urine >100 /hpf (0-5)
[2023-12-05 05:45] LABS: Add Urine Culture? Yes
[2023-12-05 05:59] LABS: Basophils % 0.2 %; Eosinophils # 0.1 10^3/uL (0.0-0.8); Eosinophils % 1.7 %; Hematocrit 33.8 % (36-47); Lymphocytes # 0.7 10^3/uL (0.8-4.8); Lymphocytes % 12.2 %; Mean Corpuscular HGB Conc 31.4 g/dL (30-55); Mean Corpuscular Hemoglobin 28.1 pg (27-33); Mean Corpuscular Volume 89.7 fl (85-98); Monocytes # 0.4 10^3/uL (0.2-0.9); Monocytes % 7.2 %; Neutrophils % 78.4 %; Nucleated Red Blood Cells % 0 %; Platelet Count 151 10^3/cmm (157-399); Red Blood Count 3.77 10^6/uL (3.85-5.65); Red Cell Distribution Width 20.1 % (12.1-15.1); White Blood Count 5.99 10^3/uL (3.29-11.43)
[2023-12-05] MEDS: sodium chloride 0.9% 1,000 ML 999 ML IV (06:04)
--- NOTE | 2023-12-05 06:05 | PC.NURSE ---
Verbal order given by Dr Agarwal to place La catheter. Patient drained approximately 650ml.
[2023-12-05] MEDS: cefTRIAXone 1,000 mg SDV 1000 MG IVP (06:07)
[2023-12-05 06:14] VITALS: BP 133/65; PULSE 56; RESP 18; O2SAT 97
[2023-12-05 06:18] LABS: Lactic Sepsis W/Reflex 0.8 mmol/L (0.5-2.2)
[2023-12-05 06:19] LABS: Alanine Aminotransferase 23 U/L (0-33); Albumin Level 3.5 g/dL (3.5-5.2); Alkaline Phosphatase 102 U/L (35-105); Blood Urea Nitrogen 32 mg/dL (8-23); C Reactive Protein 35.4 mg/L (0.0-4.9); Calcium 8.8 mg/dL (8.5-10.5); Carbon Dioxide 26 mmol/L (22-29); Chloride 109 mmol/L (98-107); Glucose 88 mg/dL (65-115); Osmolality Calculated 306 mOsm/kg (285-295); Sodium 145 mmol/L (136-145); Total Bilirubin 0.5 mg/dL (0.15-1.2); Total Protein 6.5 g/dL (6.6-8.7)
[2023-12-05 06:24] LABS: Anion Gap 14.3 (5-19); Aspartate Amino Transferase 48 U/L (0-32); Potassium 4.3 mmol/L (3.5-5.1)
== END 2023-12-05 15:26 | disposition home or self-care (01) ==
PROVIDERS: Emergency Medicine; Emergency Provider Emergency Medicine; PCP Internal Medicine
DX: N30.00 Acute cystitis without hematuria (principal); Z79.01 Long term (current) use of anticoagulants; Z87.891 Personal history of nicotine dependence; Z86.73 Personal history of transient ischemic attack (TIA), and cerebral infarction without residual deficits; Z85.51 Personal history of malignant neoplasm of bladder; Z87.440 Personal history of urinary (tract) infections
CPT/HCPCS: 36415; 80053; 81001; 83605; 85025; 86140; 87040; 87077; 87086; 87186; 96361; 96374; 99284; J0696; J7030

== ENCOUNTER → 2023-12-17 11:24 | Outpatient (BNVA) | payer MEDICARE, MEDICAID, SELFPAY | PROVIDERS: PCP Internal Medicine; Visit Provider Psychiatry & Neurology Neurology | DX: R56.9 Unspecified convulsions (principal); G93.40 Encephalopathy, unspecified; E03.9 Hypothyroidism, unspecified; R25.8 Other abnormal involuntary movements; D47.2 Monoclonal gammopathy; R55 Syncope and collapse | CPT/HCPCS: 99212; 99213 ==

== ENCOUNTER → 2023-12-29 14:41 | Outpatient (BNVA) | payer MEDICARE, MEDICAID, SELFPAY | PROVIDERS: PCP Internal Medicine; Visit Provider Psychiatry & Neurology Neurology | DX: G93.40 Encephalopathy, unspecified (principal); I95.1 Orthostatic hypotension | CPT/HCPCS: 95816; 95819 ==

== ENCOUNTER → 2024-01-01 11:08 | Outpatient (BNVA) | payer MEDICARE, MEDICAID, SELFPAY | PROVIDERS: PCP Internal Medicine; Visit Provider Nurse Practitioner Family | DX: I48.0 Paroxysmal atrial fibrillation (principal); R00.1 Bradycardia, unspecified; I44.4 Left anterior fascicular block; I51.89 Other ill-defined heart diseases; Z87.891 Personal history of nicotine dependence; R94.31 Abnormal electrocardiogram [ECG] [EKG] | CPT/HCPCS: 93005; 99214 ==

== ENCOUNTER → 2024-02-01 10:16 | Outpatient (BNVA) | payer MEDICARE, MEDICAID, SELFPAY | PROVIDERS: PCP Internal Medicine; Visit Provider Nurse Practitioner Family | DX: I48.0 Paroxysmal atrial fibrillation (principal); I95.9 Hypotension, unspecified; I49.9 Cardiac arrhythmia, unspecified; Z87.891 Personal history of nicotine dependence; Z79.01 Long term (current) use of anticoagulants | CPT/HCPCS: 99213 ==

== ENCOUNTER 2024-02-21 19:31 | Emergency (ER) | payer MEDICARE, MEDICAID, SELFPAY ==
[2024-02-21] VITALS (36 sets, daily range): BP systolic 105–143; BP diastolic 67–80; PULSE 67–79; RESP 12–28; TEMP 37.2; O2SAT 91–100; BMI 22.8
--- NOTE | 2024-02-21 19:33 | ED_ITS ---
Documented by User: RA Recio 02/21/24 22:14 HPI - Altered Mental Status 2 General: Chief Complaint: Altered Mental Status Stated Complaint: AMS Time Seen by Provider: 02/21/24 19:31 History of Present Illness: 78-year-old female comes in today from [facility] unit at [facility] [place] change in mental status. EMS reports that longterm staff said that she had usually is much more talkative and verbal follow-up today that she has been nonverbal. EMS reports that the right pupil appears slightly larger than the left. Patient smells of foul urine. Patient does have a history of dementia, CVA, anticoagulation disorder, atrial fibs, constipation, bowel resection, ovarian mass, hysterectomy, and recurrent urinary tract infection. Patient is anticoagulated on apixaban. Related Data Home Medications Medication Instructions Recorded Confirmed Prevagen 1 cap PO QAM 12/19/22 02/01/24 bisacodyl 10 mg rectal suppository 10 mg LA DAILY PRN Constipation 03/19/23 02/01/24 (Dulcolax (bisacodyl)) bisacodyl 5 mg tablet,delayed 5 mg PO DAILY PRN Constipation 03/19/23 02/01/24 release (Dulcolax (bisacodyl)) magnesium hydroxide 400 mg/5 mL 15 ml PO Q72H PRN Constipation 03/19/23 02/01/24 oral suspension (Milk of Magnesia) sodium phosphates 19 gram-7 118 ml LA DAILY PRN Constipation 03/19/23 02/01/24 gram/118 mL enema (Fleet Enema) amiodarone 200 mg tablet 200 mg PO DAILY 04/28/23 02/01/24 apixaban 5 mg tablet (Eliquis) 5 mg PO BID 04/28/23 02/01/24 hydrocodone 5 mg-acetaminophen 325 1 tab PO Q4H PRN 05/14/23 02/01/24 mg tablet Lactobacillus acidophilus 2,000 mmu cells PO BID 08/06/23 02/01/24 acetaminophen 325 mg capsule 325 mg PO QID PRN 08/06/23 02/01/24 alfuzosin 10 mg tablet,extended 10 mg PO DAILY 08/06/23 02/01/24 release 24 hr collagenase clostridium histo. 250 1 applic topical DAILY 08/06/23 02/01/24 unit/gram topical ointment (Santyl) honey 80 % topical gel (MediHoney 1 applic topical DAILY 08/06/23 02/01/24 (honey)) levofloxacin 500 mg tablet 500 mg PO DAILY 08/06/23 02/01/24 levothyroxine 50 mcg capsule 50 mcg PO DAILY 08/06/23 02/01/24 Previous Rx's Medication Instructions Recorded polyethylene glycol 3350 17 gram 17 g PO DAILY #10 ea 01/29/23 oral powder packet comp.stocking,knee,long,medium #12 ea 03/11/23 alendronate 70 mg tablet See Rx Instructions PO .COMPLEX #4 04/28/23 tabs carbidopa 25 mg-levodopa 100 mg 1 tab PO BID #180 tabs 12/17/23 tablet (Sinemet) cephalexin 500 mg capsule 500 mg PO Q8H 7 days #21 caps 02/21/24 Allergies Allergy/AdvReac Type Severity Reaction Status Date / Time No Known Allergies Allergy Verified 02/01/24 10:21 Review of Systems 2 General: Reports: 10 or more systems reviewed and unremarkable except in HPI and below PFSH ED 2 PFSH: Medical History Anticoagulation adequate with anticoagulant therapy Closed displaced fracture of right femoral neck Anemia Paroxysmal atrial fibrillation Dehydration Femoral hernia of left side with gangrene and obstruction Strangulated inguinal hernia Incarcerated inguinal hernia Visual hallucinations Confusion History of CVA (cerebrovascular accident) Memory changes Peripheral arterial disease Lung nodule Pulmonary hypertension Chest pain Ovarian cystic mass Incomplete bladder emptying Palpitations History of hematuria History of bladder cancer Chronic cystitis Surgical History History of resection of small bowel Hx of hernia repair Dr. Reyes 01/23/23 open left femoral hernia repair with mesh, diagnostiv laparascopy, laparotomy with small bowel resection and primary anastomosis History of ear surgery History of lateral meniscus repair of right knee History of cataract removal with insertion of prosthetic lens History of right salpingo-oophorectomy Status post surgical removal and fulguration of bladder neoplasm Family History Father Colon cancer Sister Multiple myeloma Denies family history of Ovarian cancer Diabetes Dementia Heart disease Hypercholesteremia Breast cancer Hypertension Uterine cancer Thyroid disease Stroke Social History Smoking and tobacco/nicotine status: former use of tobacco/nicotine Quit status (tobacco/nicotine): has quit using Year quit tobacco: 2020 Alcohol intake: never Household members: none Number of children: 1 Number of grandchildren: 1 Current occupational status: retired 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 Joyce/Bahai: Buddhist Special joyce needs: Yes Details: 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 Agree to transfusion: Yes Physical Exam 2 HENMT: COMMON NORMALS: normocephalic HEAD & SCALP: normocephalic Neck/C-Spine: COMMON NORMALS: full ROM Resp: COMMON NORMALS: normal respiratory effort Cardio: COMMON NORMALS: regular rate RATE: regular rate Back/Pelvis: COMMON NORMALS: thoracic and lumbar spine normal to inspection Extremity: COMMON NORMALS: full ROM Neuro: SENSORIUM/ORIENTATION: Yes somnolent Psych: APPEARANCE: Yes disheveled Skin: NARRATIVE SKIN EXAM: Mild tenting for turgor Course 2 Vital Signs: Vital signs: Vital Signs Temperature 98.9 F 02/21/24 19:32 Pulse Rate 74 02/21/24 23:25 Respiratory Rate 22 H 02/21/24 23:25 Blood Pressure 140/76 02/21/24 23:25 Pulse Oximetry 91 02/21/24 23:25 Oxygen Delivery Me thod Room Air 02/21/24 19:42 MDM - Altered Mental Status Medical Decision Making Patient was referred to the ER for concerns of possible altered mental status. Patient has a history of dementia and has not been as talkative today. No falls or injuries were reported. On exam patient is nonverbal and a very poor historian. Patient does have a history of CVA and dementia. Vital signs are normal. Differential diagnosis includes not limited to dehydration, urinary tract infection, pneumonia, CVA, ACS. Chest x-ray noted no abnormalities. CT of the head was unremarkable. CBC was unremarkable. CMP noted a creatinine bumped up to 1.9 from a usual 0.9. Patient blood glucose was 119. Lactic was normal. BUN was 43. No change in troponin at 2 hours. Urinalysis showed a large amount of white blood cells and red blood cells. Patient was given 2 g of Rocephin IV. Patient will be continued on cephalexin at the longterm. Patient was recommended to follow-up with primary care in 1 week for an recheck of urine in 1 week. Patient was discharged back to longterm in stable condition. Lab Data 02/21/24 19:53 02/21/24 19:53 Radiology Impressions Chest X-Ray 02/21/24 19:38 IMPRESSION: No acute findings. Head CT 02/21/24 19:38 IMPRESSION: 1. No acute intracranial abnormality. 2. Moderate age-related changes. A few other chronic/incidental findings above. Laboratory Results WBC 5.93 10^3/uL (3.29-11.43) 02/21/24 19:53 RBC 4.18 10^6/uL (3.85-5.65) 02/21/24 19:53 Hgb 12.20 g/dL (11.27-16.99) 02/21/24 19:53 Hct 40.9 % (36-47) 02/21/24 19:53 MCV 97.8 fl (85-98) 02/21/24 19:53 MCH 29.2 pg (27-33) 02/21/24 19:53 MCHC 29.8 g/dL (30-55) L 02/21/24 19:53 RDW 15.9 % (12.1-15.1) H 02/21/24 19:53 Plt Count 216 10^3/cmm (157-399) 02/21/24 19:53 MPV 12.0 fL (7.4-10.4) H 02/21/24 19:53 Neut % (Auto) 76.1 % 02/21/24 19:53 Lymph % (Auto) 8.9 % 02/21/24 19:53 [place] % (Auto) 14.2 % 02/21/24 19:53 Eos % (Auto) 0.0 % 02/21/24 19:53 Baso % (Auto) 0.5 % 02/21/24 19:53 Neut # (Auto) 4.51 10^3/uL (1.8-7.7) 02/21/24 19:53 Lymph # (Auto) 0.5 10^3/uL (0.8-4.8) L 02/21/24 19:53 [place] # (Auto) 0.8 10^3/uL (0.2-0.9) 02/21/24 19:53 Eos # (Auto) 0.0 10^3/uL (0.0-0.8) 02/21/24 19:53 Baso # (Auto) 0.0 10^3/uL (0.0-0.1) 02/21/24 19:53 Nucleated RBC % (auto) 0 % 02/21/24 19:53 Nucleated RBCs # 0.0 /100WBC 02/21/24 19:53 Sodium 144 mmol/L (136-145) 02/21/24 19:53 Potassium 4.9 mmol/L (3.5-5.1) 02/21/24 19:53 Chloride 109 mmol/L (98-107) H 02/21/24 19:53 Carbon Dioxide 19 mmol/L (22-29) L 02/21/24 19:53 Anion Gap 20.9 (5-19) H 02/21/24 19:53 BUN 43 mg/dL (8-23) H 02/21/24 19:53 Creatinine 1.9 mg/dL (0.5-0.9) H 02/21/24 19:53 GFR Calculation Not Reportable 02/21/24 19:53 Glucose 119 mg/dL (65-115) H 02/21/24 19:53 Calculated Osmolality 310 mOsm/kg (285-295) H 02/21/24 19:53 Lactic Acid 1.6 mmol/L (0.5-2.2) 02/21/24 19:53 Calcium 8.8 mg/dL (8.5-10.5) 02/21/24 19:53 Total Bilirubin 0.8 mg/dL (0.15-1.2) 02/21/24 19:53 AST 12 U/L (0-32) 02/21/24 19:53 ALT 9 U/L (0-33) 02/21/24 19:53 Alkaline Phosphatase 114 U/L (35-105) H 02/21/24 19:53 Troponin T Baseline 20 ng/L (0-10) H 02/21/24 19:53 Troponin T 120 Minute 21.09 ng/L (0-10) H 02/21/24 21:08 Delta Troponin T 1.09 ABS# (0-10) 02/21/24 21:08 Total Protein 7.0 g/dL (6.6-8.7) 02/21/24 19:53 Albumin 4.1 g/dL (3.5-5.2) 02/21/24 19:53 Globulin 2.9 g/dL (1.3-4.6) 02/21/24 19:53 Urine Color Yellow (Yellow) 02/21/24 21:10 Urine Appearance Turbid (CLEAR) A 02/21/24 21:10 Urine pH 8.5 (5-7) A 02/21/24 21:10 Ur Specific [place] 1.017 (1.005-1.030) 02/21/24 21:10 Urine Protein 3+ (Negative) A 02/21/24 21:10 Urine Glucose (UA) Negative (Normal) 02/21/24 21:10 Urine Ketones 1+ (Negative) H 02/21/24 21:10 Urine Blood 3+ (Negative) A 02/21/24 21:10 Urine Nitrate Positive (Negative) A 02/21/24 21:10 Urine Bilirubin Negative (Negative) 02/21/24 21:10 Urine Urobilinogen 1.0 mg/dL (Negative) 02/21/24 21:10 Ur Leukocyte Esterase 3+ (Negative) A 02/21/24 21:10 Urine RBC >100 /hpf (0-2) H 02/21/24 21:10 Urine WBC >100 /hpf (0-5) H 02/21/24 21:10 Ur Squamous Epith Cells 0-5 /hpf (0-5) 02/21/24 21:10 Amorphous Sediment Not Reportable 02/21/24 21:10 Urine Bacteria Exceeds /hpf (NONE) 02/21/24 21:10 Hyaline Casts 171.68 /lpf 02/21/24 21:10 Urine Mucus 2+ /hpf 02/21/24 21:10 All radiology interpretation(s) finalized by discharge EKG Data EKG 1: I personally reviewed and interpreted this EKG as follows: EKG interpretation date: 02/21/24 EKG interpretation time: 21:35 Prior EKG tracings: not available for review Interpretation: EKG shows a sinus rhythm with a regular rate of [address] elevation is noted. No prior exam was available for immediate comparison. Computer generated interpretation: Sinus rhythm. Left anterior fascicular block. Abnormal EKG. Unconfirmed report. Discharge Plan Discharge Patient Disposition: Home Clinical Impression: Acute UTI Condition: Stable Prescriptions: New cephalexin 500 mg capsule 500 mg PO Q8H 7 Days Qty: 21 0RF No Action Santyl 250 unit/gram ointment 1 applic topical DAILY levofloxacin 500 mg tablet 500 mg PO DAILY Lactobacillus acidophilus Capsule 2,000 mmu cells PO BID alfuzosin 10 mg tablet extended release 24 hr 10 mg PO DAILY Rx Instructions: administer after the same meal each day acetaminophen 325 mg capsule 325 mg PO QID PRN levothyroxine 50 mcg capsule 50 mcg PO DAILY MediHoney (honey) 80 % gel 1 applic topical DAILY hydrocodone-acetaminophen 5-325 mg tablet 1 tab PO Q4H PRN carbidopa-levodopa [Sinemet] 25-100 mg tablet 1 tab PO BID Qty: 180 3RF (DME) comp.stocking,knee,long,medium Misc See Rx Instructions .Route Qty: 12 0RF Rx Instructions: As directed alendronate 70 mg tablet See Rx Instructions PO .COMPLEX Qty: 4 0RF Rx Instructions: 1 tab weekly on empty stomach with full glass water. Do not eat/lie down for 1 hour after Prevagen 1 cap PO QAM polyethylene glycol 3350 17 gram Powder In Packet 17 g PO DAILY Qty: 10 0RF magnesium hydroxide [Milk of Magnesia] 400 mg/5 mL Suspension 15 ml PO Q72H PRN (Reason: Constipation) bisacodyl [Dulcolax (bisacodyl)] 10 mg Suppository 10 mg LA DAILY PRN (Reason: Constipation) Fleet Enema 19-7 gram/118 mL Enema 118 ml LA DAILY PRN (Reason: Constipation) bisacodyl [Dulcolax (bisacodyl)] 5 mg Tablet,Delayed Release (Dr/Ec) 5 mg PO DAILY PRN (Reason: Constipation) amiodarone 200 mg tablet 200 mg PO DAILY Eliquis 5 mg tablet 5 mg PO BID Discharge Orders: Discharge ED (Routine); Ordered 02/21/24 Ordered By: Se Hopkins Referrals: Robin Ivey DO [Primary Care Provider] - Discharge Diet: Usual diet Discharge Activity: Increase activity as tolerated Patient Instructions: Altered Mental Status (ED) Activity Restrictions/Additional Instructions: Encourage plenty of fluids. Antibiotics as directed. Repeat urine in 1 week. Return to ED for worsening symptoms. Coding Level of Care Code ED Aoc Operations Intelligence Chief for Chg Fwd Documented by User: Madhav Villeda DO 02/22/24 00:21 HPI - Altered Mental Status 2 General: Chief Complaint: Altered Mental Status Stated Complaint: AMS Time Seen by Provider: 02/21/24 19:31 Related Data Home Medications Medication Instructions Recorded Confirmed Prevagen 1 cap PO QAM 12/19/22 02/01/24 bisacodyl 10 mg rectal suppository 10 mg LA DAILY PRN Constipation 03/19/23 02/01/24 (Dulcolax (bisacodyl)) bisacodyl 5 mg tablet,delayed 5 mg PO DAILY PRN Constipation 03/19/23 02/01/24 release (Dulcolax (bisacodyl)) magnesium hydroxide 400 mg/5 mL 15 ml PO Q72H PRN Constipation 03/19/23 02/01/24 oral suspension (Milk of Magnesia) sodium phosphates 19 gram-7 118 ml LA DAILY PRN Constipation 03/19/23 02/01/24 gram/118 mL enema (Fleet Enema) amiodarone 200 mg tablet 200 mg PO DAILY 04/28/23 02/01/24 apixaban 5 mg tablet (Eliquis) 5 mg PO BID 04/28/23 02/01/24 hydrocodone 5 mg-acetaminophen 325 1 tab PO Q4H PRN 05/14/23 02/01/24 mg tablet Lactobacillus acidophilus 2,000 mmu cells PO BID 08/06/23 02/01/24 acetaminophen 325 mg capsule 325 mg PO QID PRN 08/06/23 02/01/24 alfuzosin 10 mg tablet,extended 10 mg PO DAILY 08/06/23 02/01/24 release 24 hr collagenase clostridium histo. 250 1 applic topical DAILY 08/06/23 02/01/24 unit/gram topical ointment (Santyl) honey 80 % topical gel (MediHoney 1 applic topical DAILY 08/06/23 02/01/24 (honey)) levofloxacin 500 mg tablet 500 mg PO DAILY 08/06/23 02/01/24 levothyroxine 50 mcg capsule 50 mcg PO DAILY 08/06/23 02/01/24 Previous Rx's Medication Instructions Recorded polyethylene glycol 3350 17 gram 17 g PO DAILY #10 ea 01/29/23 oral powder packet comp.stocking,knee,long,medium #12 ea 03/11/23 alendronate 70 mg tablet See Rx Instructions PO .COMPLEX #4 04/28/23 tabs carbidopa 25 mg-levodopa 100 mg 1 tab PO BID #180 tabs 12/17/23 tablet (Sinemet) cephalexin 500 mg capsule 500 mg PO Q8H 7 days #21 caps 02/21/24 Allergies Allergy/AdvReac Type Severity Reaction Status Date / Time No Known Allergies Allergy Verified 02/01/24 10:21 PFSH ED 2 PFSH: Medical History Anticoagulation adequate with anticoagulant therapy Closed displaced fracture of right femoral neck Anemia Paroxysmal atrial fibrillation Dehydration Femoral hernia of left side with gangrene and obstruction Strangulated inguinal hernia Incarcerated inguinal hernia Visual hallucinations Confusion History of CVA (cerebrovascular accident) Memory changes Peripheral arterial disease Lung nodule Pulmonary hypertension Chest pain Ovarian cystic mass Incomplete bladder emptying Palpitations History of hematuria History of bladder cancer Chronic cystitis Surgical History History of resection of small bowel Hx of hernia repair Dr. Reyes 01/23/23 open left femoral hernia repair with mesh, diagnostiv laparascopy, laparotomy with small bowel resection and primary anastomosis History of ear surgery History of lateral meniscus repair of right knee History of cataract removal with insertion of prosthetic lens History of right salpingo-oophorectomy Status post surgical removal and fulguration of bladder neoplasm Family History Father Colon cancer Sister Multiple myeloma Denies family history of Ovarian cancer Diabetes Dementia Heart disease Hypercholesteremia Breast cancer Hypertension Uterine cancer Thyroid disease Stroke Social History Smoking and tobacco/nicotine status: former use of tobacco/nicotine Quit status (tobacco/nicotine): has quit using Year quit tobacco: 2019 Alcohol intake: never Household members: none Number of children: 1 Number of grandchildren: 1 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 occupational 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: 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 Patient has a history of dementia and has not been as talkative today. No falls or injuries were reported. On exam patient is nonverbal and a very poor historian. Patient does have a history of CVA and dementia. Vital signs are normal. Differential diagnosis includes not limited to dehydration, urinary tract infection, pneumonia, CVA, ACS. Chest x-ray noted no abnormalities. CT of the head was unremarkable. CBC was unremarkable. CMP noted a creatinine bumped up to 1.9 from a usual 0.9. Patient blood glucose was 119. Lactic was normal. BUN was 43. No change in troponin at 2 hours. Urinalysis showed a large amount of white blood cells and red blood cells. Patient was given 2 g of Rocephin IV. Patient will be continued on cephalexin at the longterm. Patient was recommended to follow-up with primary care in 1 week for an recheck of urine in 1 week. Patient was discharged back to longterm in stable condition. This patient was originally seen by RA Dyson.? I agree with his history, evaluation, and treatment. Lab Data 02/21/24 19:53 02/21/24 19:53 Radiology Impressions Chest X-Ray 02/21/24 19:38 IMPRESSION: No acute findings. Head CT 02/21/24 19:38 IMPRESSION: 1. No acute intracranial abnormality. 2. Moderate age-related changes. A few other chronic/incidental findings above. Laboratory Results WBC 5.93 10^3/uL (3.29-11.43) 02/21/24 19:53 RBC 4.18 10^6/uL (3.85-5.65) 02/21/24 19:53 Hgb 12.20 g/dL (11.27-16.99) 02/21/24 19:53 Hct 40.9 % (36-47) 02/21/24 19:53 MCV 97.8 fl (85-98) 02/21/24 19:53 MCH 29.2 pg (27-33) 02/21/24 19:53 MCHC 29.8 g/dL (30-55) L 02/21/24 19:53 RDW 15.9 % (12.1-15.1) H 02/21/24 19:53 Plt Count 216 10^3/cmm (157-399) 02/21/24 19:53 MPV 12.0 fL (7.4-10.4) H 02/21/24 19:53 Neut % (Auto) 76.1 % 02/21/24 19:53 Lymph % (Auto) 8.9 % 02/21/24 19:53 [place] % (Auto) 14.2 % 02/21/24 19:53 Eos % (Auto) 0.0 % 02/21/24 19:53 Baso % (Auto) 0.5 % 02/21/24 19:53 Neut # (Auto) 4.51 10^3/uL (1.8-7.7) 02/21/24 19:53 Lymph # (Auto) 0.5 10^3/uL (0.8-4.8) L 02/21/24 19:53 [place] # (Auto) 0.8 10^3/uL (0.2-0.9) 02/21/24 19:53 Eos # (Auto) 0.0 10^3/uL (0.0-0.8) 02/21/24 19:53 Baso # (Auto) 0.0 10^3/uL (0.0-0.1) 02/21/24 19:53 Nucleated RBC % (auto) 0 % 02/21/24 19:53 Nucleated RBCs # 0.0 /100WBC 02/21/24 19:53 Sodium 144 mmol/L (136-145) 02/21/24 19:53 Potassium 4.9 mmol/L (3.5-5.1) 02/21/24 19:53 Chloride 109 mmol/L (98-107) H 02/21/24 19:53 Carbon Dioxide 19 mmol/L (22-29) L 02/21/24 19:53 Anion Gap 20.9 (5-19) H 02/21/24 19:53 BUN 43 mg/dL (8-23) H 02/21/24 19:53 Creatinine 1.9 mg/dL (0.5-0.9) H 02/21/24 19:53 GFR Calculation Not Reportable 02/21/24 19:53 Glucose 119 mg/dL (65-115) H 02/21/24 19:53 Calculated Osmolality 310 mOsm/kg (285-295) H 02/21/24 19:53 Lactic Acid 1.6 mmol/L (0.5-2.2) 02/21/24 19:53 Calcium 8.8 mg/dL (8.5-10.5) 02/21/24 19:53 Total Bilirubin 0.8 mg/dL (0.15-1.2) 02/21/24 19:53 AST 12 U/L (0-32) 02/21/24 19:53 ALT 9 U/L (0-33) 02/21/24 19:53 Alkaline Phosphatase 114 U/L (35-105) H 02/21/24 19:53 Troponin T Baseline 20 ng/L (0-10) H 02/21/24 19:53 Troponin T 120 Minute 21.09 ng/L (0-10) H 02/21/24 21:08 Delta Troponin T 1.09 ABS# (0-10) 02/21/24 21:08 Total Protein 7.0 g/dL (6.6-8.7) 02/21/24 19:53 Albumin 4.1 g/dL (3.5-5.2) 02/21/24 19:53 Globulin 2.9 g/dL (1.3-4.6) 02/21/24 19:53 Urine Color Yellow (Yellow) 02/21/24 21:10 Urine Appearance Turbid (CLEAR) A 02/21/24 21:10 Urine pH 8.5 (5-7) A 02/21/24 21:10 Ur Specific [place] 1.017 (1.005-1.030) 02/21/24 21:10 Urine Protein 3+ (Negative) A 02/21/24 21:10 Urine Glucose (UA) Negative (Normal) 02/21/24 21:10 Urine Ketones 1+ (Negative) H 02/21/24 21:10 Urine Blood 3+ (Negative) A 02/21/24 21:10 Urine Nitrate Positive (Negative) A 02/21/24 21:10 Urine Bilirubin Negative (Negative) 02/21/24 21:10 Urine Urobilinogen 1.0 mg/dL (Negative) 02/21/24 21:10 Ur Leukocyte Esterase 3+ (Negative) A 02/21/24 21:10 Urine RBC >100 /hpf (0-2) H 02/21/24 21:10 Urine WBC >100 /hpf (0-5) H 02/21/24 21:10 Ur Squamous Epith Cells 0-5 /hpf (0-5) 02/21/24 21:10 Amorphous Sediment Not Reportable 02/21/24 21:10 Urine Bacteria Exceeds /hpf (NONE) 02/21/24 21:10 Hyaline Casts 171.68 /lpf 02/21/24 21:10 Urine Mucus 2+ /hpf 02/21/24 21:10 Discharge Plan Discharge Patient Disposition: Home Clinical Impression: Acute UTI Condition: Stable Prescriptions: New cephalexin 500 mg capsule 500 mg PO Q8H 7 Days Qty: 21 0RF No Action Santyl 250 unit/gram ointment 1 applic topical DAILY levofloxacin 500 mg tablet 500 mg PO DAILY Lactobacillus acidophilus Capsule 2,000 mmu cells PO BID alfuzosin 10 mg tablet extended release 24 hr 10 mg PO DAILY Rx Instructions: administer after the same meal each day acetaminophen 325 mg capsule 325 mg PO QID PRN levothyroxine 50 mcg capsule 50 mcg PO DAILY MediHoney (honey) 80 % gel 1 applic topical DAILY hydrocodone-acetaminophen 5-325 mg tablet 1 tab PO Q4H PRN carbidopa-levodopa [Sinemet] 25-100 mg tablet 1 tab PO BID Qty: 180 3RF (DME) comp.stocking,knee,long,medium Misc See Rx Instructions .Route Qty: 12 0RF Rx Instructions: As directed alendronate 70 mg tablet See Rx Instructions PO .COMPLEX Qty: 4 0RF Rx Instructions: 1 tab weekly on empty stomach with full glass water. Do not eat/lie down for 1 hour after Prevagen 1 cap PO QAM polyethylene glycol 3350 17 gram Powder In Packet 17 g PO DAILY Qty: 10 0RF magnesium hydroxide [Milk of Magnesia] 400 mg/5 mL Suspension 15 ml PO Q72H PRN (Reason: Constipation) bisacodyl [Dulcolax (bisacodyl)] 10 mg Suppository 10 mg LA DAILY PRN (Reason: Constipation) Fleet Enema 19-7 gram/118 mL Enema 118 ml LA DAILY PRN (Reason: Constipation) bisacodyl [Dulcolax (bisacodyl)] 5 mg Tablet,Delayed Release (Dr/Ec) 5 mg PO DAILY PRN (Reason: Constipation) amiodarone 200 mg tablet 200 mg PO DAILY Eliquis 5 mg tablet 5 mg PO BID Discharge Orders: Discharge ED (Routine); Ordered 02/21/24 Ordered By: Se Hopkins Referrals: Robin Ivey DO [Primary Care Provider] - Discharge Diet: Usual diet Discharge Activity: Increase activity as tolerated Patient Instructions: Altered Mental Status (ED) Activity Restrictions/Additional Instructions: Encourage plenty of fluids. Antibiotics as directed. Repeat urine in 1 week. Return to ED for worsening symptoms. Coding Level of Care Code ED Aoc Operations Intelligence Chief for Renea Chakraborty
--- NOTE | 2024-02-21 19:38 | CTR_ITS ---
PROCEDURE INFORMATION: Exam: CT Head Without Contrast Exam date and time: 02/21/2024 8:54 PM Age: 78 years old Clinical indication: Altered mental status/memory loss; Confusion or disorientation; Patient HX: EMS arrival from skilled nursing for worsening confusion. Patient non verbal. ; Additional info: AMS TECHNIQUE: Imaging protocol: Computed tomography of the head without contrast. Radiation optimization: All CT scans at this facility use at least one of these dose optimization techniques: automated exposure control; mA and/or kV adjustment per patient size (includes targeted exams where dose is matched to clinical indication); or iterative reconstruction. COMPARISON: CT head wo con* [id number] 11/29/2023 8:39 PM RADIATION DOSE METRICS: Total DLP (mGy-cm): 1319.98 FINDINGS: Brain: No focal hemorrhage or midline shift is identified. The ventricles and parenchyma show moderate atrophy and chronic bicerebral white matter ischemic change. Right frontal small meningioma again noted. Cerebral ventricles: No ventriculomegaly or evidence of hydrocephalus. Paranasal sinuses: Moderate right maxillary sinus opacification. Mild left sphenoid sinus disease. Mastoid air cells: Visualized mastoid air cells are well aerated. Bones: No displaced skull fracture is noted. Soft tissues: Unremarkable. Vasculature: Diffuse vascular calcifications are present. CT/CT head wo con* [id number] IMPRESSION: 1. No acute intracranial abnormality. 2. Moderate age-related changes. A few other chronic/incidental findings above.
--- NOTE | 2024-02-21 19:38 | XRR_ITS ---
PROCEDURE INFORMATION: Exam: XR Chest Exam date and time: 02/21/2024 7:51 PM Age: 78 years old Clinical indication: Patient HX: Increased AMS; Lethargic TECHNIQUE: Imaging protocol: Radiologic exam of the chest. Views: 1 view. COMPARISON: CR XR chest 1V portable [id number] 11/29/2023 8:25 PM FINDINGS: Lungs: Mild COPD. No consolidation. Apical scarring again seen, [id number]-[id number]-[id number]-right. Minor areas of bibasilar atelectasis or scarring. Pleural spaces: Unremarkable. No pleural effusion. No pneumothorax. Heart/Mediastinum: Unchanged moderate cardiomegaly. Advanced diffuse vascular calcification noted. Bones/joints: Unremarkable. XR/XR chest 1V portable [id number] IMPRESSION: No acute findings.
[2024-02-21 20:00] LABS: Basophils % 0.5 %; Hematocrit 40.9 % (36-47); Lymphocytes # 0.5 10^3/uL (0.8-4.8); Lymphocytes % 8.9 %; Mean Corpuscular HGB Conc 29.8 g/dL (30-55); Mean Corpuscular Hemoglobin 29.2 pg (27-33); Mean Corpuscular Volume 97.8 fl (85-98); Monocytes # 0.8 10^3/uL (0.2-0.9); Monocytes % 14.2 %; Neutrophils # 4.51 10^3/uL (1.8-7.7); Neutrophils % 76.1 %; Nucleated Red Blood Cells % 0 %; Platelet Count 216 10^3/cmm (157-399); Red Blood Count 4.18 10^6/uL (3.85-5.65); Red Cell Distribution Width 15.9 % (12.1-15.1); White Blood Count 5.93 10^3/uL (3.29-11.43)
[2024-02-21 20:20] LABS: Troponin(5th) Baseline 20 ng/L (0-10)
[2024-02-21 20:22] LABS: Lactic Sepsis W/Reflex 1.6 mmol/L (0.5-2.2)
[2024-02-21 20:25] LABS: Alanine Aminotransferase 9 U/L (0-33); Albumin Level 4.1 g/dL (3.5-5.2); Alkaline Phosphatase 114 U/L (35-105); Anion Gap 20.9 (5-19); Aspartate Amino Transferase 12 U/L (0-32); Blood Urea Nitrogen 43 mg/dL (8-23); Calcium 8.8 mg/dL (8.5-10.5); Carbon Dioxide 19 mmol/L (22-29); Chloride 109 mmol/L (98-107); Creatinine Clr Calc Pharmacy 20.6448; Globulin 2.9 g/dL (1.3-4.6); Glucose 119 mg/dL (65-115); Osmolality Calculated 310 mOsm/kg (285-295); Potassium 4.9 mmol/L (3.5-5.1); Sodium 144 mmol/L (136-145); Total Bilirubin 0.8 mg/dL (0.15-1.2)
--- NOTE | 2024-02-21 21:06 | ECG_ITS ---
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 Measurements Intervals [place] Rate: 75 P: 92 OR: 164 QRS: -67 QRSD: 85 T: 73 QT: 385 QTc: 433 Interpretive Statements SINUS RHYTHM LEFT ANTERIOR FASCICULAR BLOCK [QRS AXIS <= -45, QR IN I, RS IN II] Compared to ECG 01/01/2024 11:18:40 Sinus bradycardia no longer present Myocardial infarct finding no longer present Electronically Signed On 02-25-2024 21:59:51 TEST DESIGNER by Eulalia Turner M.D. [email or web address]
[2024-02-21] MEDS: sodium chloride 0.9% 1,000 ML 999 ML IV (21:18)
[2024-02-21 21:27] LABS: Bilirubin Urine Negative (Negative); Blood Urine 3+ (Negative); Glucose Urine UA Negative (Normal); Ketones Urine 1+ (Negative); Leukocyte Esterase Urine 3+ (Negative); Nitrate Urine Positive (Negative); Protein Urine 3+ (Negative); Specific Gravity, Urine 1.017 (1.005-1.030); Urine Appearance Turbid (CLEAR); pH Urine 8.5 (5-7)
[2024-02-21 21:30] LABS: Add Urine Microscopic? YES; Bacteria Urine EXCEEDS /hpf; Hyaline Casts Urine 171.68 /lpf; RBC Urine >100 /hpf (0-2); Squamous Epithelial Cell Urine 0-5 /hpf (0-5); WBC Urine >100 /hpf (0-5)
[2024-02-21 21:31] LABS: Troponin 5 2HR 21.09 ng/L (0-10); Troponin 5 2HR Delta 1.09 ABS# (0-10)
[2024-02-21 21:42] LABS: UA Slide Review UA Slide Review Perf; Urine Color Yellow (Yellow)
[2024-02-21 21:43] LABS: Add Urine Culture? Yes; Mucus Urine 2+ /hpf
[2024-02-21] MEDS: cefTRIAXone 2,000 mg SDV 2000 MG IVP (22:07)
== END 2024-02-22 00:34 | disposition home or self-care (01) ==
PROVIDERS: Emergency Provider Nurse Practitioner Family; PCP Internal Medicine
DX: N39.0 Urinary tract infection, site not specified (principal); Z79.01 Long term (current) use of anticoagulants; Z87.891 Personal history of nicotine dependence; Z86.73 Personal history of transient ischemic attack (TIA), and cerebral infarction without residual deficits; Z85.51 Personal history of malignant neoplasm of bladder
CPT/HCPCS: 36415; 51701; 70450; 71045; 80053; 81001; 83605; 84484; 85025; 87040; 87077; 87086; 87186; 93005; 96361; 96374; 99285; J0696; J7030